=== PATIENT | female | born 1955 | race Caucasian/White ===

== ENCOUNTER 2021-10-20 12:52 | Emergency (ER) | payer OTHER, SELFPAY ==
[2021-10-20 13:01] VITALS: BP 115/86; PULSE 63; RESP 16; TEMP 36.4; O2SAT 96
--- NOTE | 2021-10-20 13:01 | ED.GENADULT ---
HPI - General Adult General Chief complaint: Unspecified Stated complaint: Right shoulder and knee Pain Time Seen by Provider: 10/20/21 13:05 Source: patient Mode of arrival: ambulatory Limitations: no limitations History of Present Illness HPI narrative: 66-year-old female presented for complaint of right shoulder and knee pain. States right shoulder pain started today. Endorses chronic bilateral knee pain, and has had cortisone injection in the right knee about 3 months ago. Denies injury. Denies decreased range of motion, numbness, tingling, weakness of extremities. She has been taking Tylenol and prescription oral morphine. She is scheduled to follow-up with her PCP next week. Related Data Home Medications Medication Instructions Recorded Confirmed alprazolam 0.5 mg tablet 1 tablet PO BID PRN Anxiety 10/20/21 10/20/21 doxazosin 4 mg tablet 1 tablet PO DAILY 10/20/21 10/20/21 hydrochlorothiazide 12.5 mg tablet 1 tablet PO DAILY 10/20/21 10/20/21 lisinopril 40 mg tablet 1 tablet PO DAILY 10/20/21 10/20/21 morphine 30 mg tablet,extended 1 tablet PO DAILY 10/20/21 10/20/21 release nebivolol 20 mg tablet 1 tablet PO DAILY 10/20/21 10/20/21 Allergies Allergy/AdvReac Type Severity Reaction Status Date / Time No Known Allergies Allergy Verified 10/20/21 12:57 Review of Systems Review of Systems: CONSTITUTIONAL: Denies body aches, fever, chills CARDIOVASCULAR: Denies chest pain, palpitations, or edema. RESPIRATORY: Denies cough or dyspnea. SKIN: Denies rash, itching, or wounds. MUSCULOSKELETAL: reports joint pain NEUROLOGIC: Denies headache, numbness, tingling, or weakness. All systems reviewed & are unremarkable except as noted in HPI and below PMFSH Social History Social History Smoking status: Former smoker Alcohol intake: never Comments At time of signature, I have reviewed and agree with nursing past medical, surgical, social and family history unless otherwise noted. Please see nursing chart for further information. There is no relevant family history pertinent to the presenting complaint Exam Narrative: GENERAL: Well-appearing EYES: conjunctivae clear CHEST: Speaks in full sentences. No respiratory distress. HEART: Regular rate and rhythm. Normal and equal peripheral pulses. EXTREMITIES: Right shoulder and leg have normal strength and sensation, slightly limited range of motion at shoulder and knee, endorses pain with movement. Moderate right knee swelling. No point tenderness. No open wounds; pulse palpable and equal bilaterally, skin warm, dry, pink. Capillary refill less than 3 seconds. Gait steady SKIN: Warm, dry, no rash. NEURO: Alert and oriented x3. PSYCH: Normal mood and affect Course Course Emergency Course: Patient is aware of diagnosis, understands and agrees to treatment plan. Anticipatory guidance given. Patient agrees to follow-up as directed and is aware of reasons to seek care at the emergency department. Portions of this record may have been created with voice recognition software Level of Care: Express Care Visit Vital Signs Vital signs: Vital Signs Temperature 97.5 F L 10/20/21 13:01 Pulse Rate 63 10/20/21 13:01 Respiratory Rate 16 10/20/21 13:01 Blood Pressure 115/86 10/20/21 13:01 Pulse Oximetry 96 10/20/21 13:01 Oxygen Delivery Room Air 10/20/21 13:01 Temperature 97.5 F L 10/20/21 13:01 Pulse Rate 63 10/20/21 13:01 Respiratory Rate 16 10/20/21 13:01 Blood Pressure 115/86 10/20/21 13:01 Pulse Oximetry 96 10/20/21 13:01 Oxygen Delivery Room Air 10/20/21 13:01 Reviewed Medical Decision Making MDM Narrative Medical decision making narrative: Pt declines imaging, she is scheduled with pcp next week, advised to contact them for possible plan for cortisone injection. Advised supportive measures for joint pain and signs/symptoms to go to the ER. Pt is appropri
== END 2021-10-20 13:25 | disposition home or self-care (01) ==
PROVIDERS: Emergency Provider Nurse Practitioner Family
DX: M25.511 Pain in right shoulder (principal); M25.561 Pain in right knee; M25.461 Effusion, right knee; Z87.891 Personal history of nicotine dependence; I10 Essential (primary) hypertension; M19.90 Unspecified osteoarthritis, unspecified site; F41.9 Anxiety disorder, unspecified
CPT/HCPCS: 99212; G0463

== ENCOUNTER 2022-07-13 16:36 | Observation (INO) | payer MEDICARE, OTHER, SELFPAY ==
[2022-07-13] VITALS (30 sets, daily range): BP systolic 126–187; BP diastolic 77–105; PULSE 52–68; RESP 14–25; TEMP 36.1–36.8; O2SAT 93–100; BMI 24.2
--- NOTE | ~2022-07-13 | XR_ITS ---
EXAMINATION: XR surgery orthopedic DATE: 07/15/2022 14:30 CDT INDICATION: ORIF RT WRIST . TECHNIQUE: 4 fluoroscopic images of the right wrist were obtained during ORIF right wrist performed b y the surgeon. I was not present in the operating room. Fluoroscopy exposure time was 10.4 seconds. A ir Kerma 0.2455 mGy. DAP 0.0049 mGym2. COMPARISON: 07/13/2022 FINDINGS: Hardware fixation of the distal right radial fracture into near-anatomic alignment. IMPRESSION: Fluoroscopic documentation of ORIF right wrist. Please refer to the operative note for complete proce dural details . Reviewed, dictated and finalized at location K. IMPRESSION: Fluoroscopic documentation of ORIF right wrist. Please refer to the operative n ote for complete procedural details .
--- NOTE | ~2022-07-13 | XR_ITS ---
EXAM: XR wrist RT min 3V DATE: 07/13/2022 20:55 HISTORY: post reduction . COMPARISON: None available. FINDINGS/IMPRESSION: Osseous detail obscured by overlying cast material. Improved alignment of the co mminuted distal right radial fracture status post reduction, with 4 mm lateral displacement and 12 de grees dorsal angulation. Increased distraction of the ulnar styloid fracture fragment. Reviewed, dictated and finalized at location K.
--- NOTE | ~2022-07-13 | CT_ITS ---
EXAMINATION: CT brain wo con DATE: 07/13/2022 18:17 INDICATION: fall . TECHNIQUE: Computed tomography (CT) of the head was performed without intravenous contrast. The mA wa s adjusted according to patient size. Iterative reconstruction technique was employed. The dose-lengt h product was 605.33 mGy-cm. COMPARISON: None. FINDINGS: No acute intracranial hemorrhage or extra-axial fluid collection. Moderate dilated lateral and third ventricles. No acute ischemic infarct. Unremarkable dural venous sinus attenuation. No acute osseous abnormality. Old right temporoparietal craniotomy defect. Multiple additional skull defects probably from old shunts. The aerated spaces are clear. 2.4 cm smoothly marginated likely extra-axial lesion in the posterior interhemispheric fissure, along the right side of the posterior falx. Soft tissue fluid and calcific densities are representing with in the lesion. No significant mass effect or adjacent cerebral edema. Dilated appearing cisterna magn a, possibly secondary to an arachnoid cyst. Left posterior frontal/parietal encephalomalacia along th e shunt tract. Left parietal approach [employer]NER shunt terminating in the left lateral ventricle. IMPRESSION: No acute intracranial hemorrhage or acute large vessel infarct. Moderate lateral and third ventricle ventriculomegaly of uncertain chronicity, but likely chronic in the absence of clinical findings of h ydrocephalus. Mixed density extra-axial lesion in the interhemispheric fissure posteriorly, uncertain etiology, likely chronic, recommend comparison with outside studies. Findings discussed with Sarwat Raymond PA-C at 6:36 PM on 07/13/2022 Reviewed, dictated and finalized at location K. IMPRESSION: No acute intracranial hemorrhage or acute large vessel infarct. 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 Mixed density extra-a xial lesion in the interhemispheric fissure posteriorly, uncertain etiology, li madhuri chronic, recommend comparison with outside studies. Findings discussed with Sarwat Raymond PA-C at 6:36 PM on 07/13/2022
--- NOTE | ~2022-07-13 | XR_ITS ---
EXAM: XR elbow RT 2V DATE: 07/13/2022 18:34 HISTORY: Fall today . COMPARISON: None available. FINDINGS: Normal mineralization. No fracture or dislocation. No lytic or blastic lesion. Mild degene rative change. No erosion or periosteal change. Soft tissues within normal limits. IMPRESSION: No acute osseous finding in the right elbow. Reviewed, dictated and finalized at location K.
--- NOTE | ~2022-07-13 | CT_ITS ---
EXAMINATION: CT facial bones wo con DATE: 07/13/2022 18:21 INDICATION: fall . TECHNIQUE: Computed tomography (CT) of the facial bones and maxillofacial region was performed withou t intravenous contrast. Automated exposure control and iterative reconstruction technique were employ ed. The dose-length product was 305.72 mGy-cm. COMPARISON: None. FINDINGS: Soft Tissues: Left frontal soft tissue swelling. Facial bones: No acute fracture. No lytic or blastic process. Eyes: The globes are intact. The soft tissue planes of the orbits are maintained. Paranasal Sinuses: The visualized aerated spaces are clear. Foreign Bodies: No radiopaque foreign bodies. Other Findings: Calcified shunt tubing in the left neck. IMPRESSION: No evidence of acute facial bone fracture. Reviewed, dictated and finalized at location K.
--- NOTE | ~2022-07-13 | XR_ITS ---
EXAM: XR shoulder RT min 2V DATE: 07/13/2022 18:34 HISTORY: Fall today . COMPARISON: None available. FINDINGS: Normal mineralization. No fracture or dislocation. No lytic or blastic lesion. Mild polyar ticular osteoarthritis in the right shoulder. No erosion or periosteal change. Soft tissues within no rmal limits. IMPRESSION: No acute osseous finding in the right shoulder. Reviewed, dictated and finalized at location K.
--- NOTE | ~2022-07-13 | XR_ITS ---
EXAM: XR wrist RT min 3V DATE: 07/13/2022 17:24 HISTORY: Right wrist pain/deformity after fall today . COMPARISON: None available. FINDINGS: Decreased mineralization. Comminuted, mildly impacted, intra-articular fracture of the dis priscila right radius, with 30 degrees dorsal angulation. Displaced ulnar styloid fracture. No lytic or bl astic lesion. Severe degenerative change at the trapeziometacarpal joint. No erosion or periosteal ch tres. Soft tissue swelling over the wrist. IMPRESSION: Comminuted, mildly impacted, intra-articular fracture of the distal right radius, with 30 degrees dorsal angulation. Displaced ulnar styloid fracture. Reviewed, dictated and finalized at location K. IMPRESSION: Comminuted, mildly impacted, intra-articular fracture of the distal right radius, with 30 degrees dorsal angulation. Displaced ulnar styloid fract ure.
[2022-07-13] MEDS: ONDANSETRON INJ 4 MG/2 ML VIAL IV PUSH (17:55)
[2022-07-13] MEDS: fentaNYL CITRATE INJ (*CRX) 100 MCG/2 ML VIAL 50 MCG IV PUSH ×2 (17:56→20:59)
--- NOTE | 2022-07-13 17:58 | ED.FALL ---
HPI - Fall General Chief Complaint: Fall <Sarwat Raymond PA-C - Last Filed: 07/13/22 23:17> Stated Complaint: fall/ deformity of rt wrist <Sarwat Raymond PA-C - Last Filed: 07/13/22 23:17> Time Seen by Provider: 07/13/22 17:33 <Sarwat Raymond PA-C - Last Filed: 07/13/22 23:17> Source: patient <JAKE Caldwell Last Filed: 07/13/22 23:17> Mode of arrival: ambulatory <JAKE Caldwell Last Filed: 07/13/22 23:17> Limitations: no limitations <JAKE Caldwell Last Filed: 07/13/22 23:17> History of Present Illness HPI Narrative: This is a 67-year-old female who presents to the ED via EMS with chief complaint of a fall occurring this afternoon just prior to arrival. Patient was outside with her grandchildren and was sitting in her chair when she tried to get up. States that she tripped over a TV box and forward landing on her outstretched right arm and face. She now reports deformity and pain to the right wrist. Also reports right shoulder pain and facial pain. Denies numbness, weakness, LOC. Denies chest pain, shortness of breath, abdominal pain. Denies any further site of pain or injury. States she is not taking blood thinners. <Sarwat Raymond PA-C - Last Filed: 07/13/22 23:17> Related Data Home Medications: Home Medications Medication Instructions Recorded Confirmed alprazolam 0.5 mg tablet 1 tablet PO BID PRN Anxiety 10/20/21 10/20/21 doxazosin 4 mg tablet 1 tablet PO DAILY 10/20/21 10/20/21 hydrochlorothiazide 12.5 mg tablet 1 tablet PO DAILY 10/20/21 10/20/21 lisinopril 40 mg tablet 1 tablet PO DAILY 10/20/21 10/20/21 morphine 30 mg tablet,extended 1 tablet PO DAILY 10/20/21 10/20/21 release nebivolol 20 mg tablet 1 tablet PO DAILY 10/20/21 10/20/21 <Sarwat Raymond PA-C - Last Filed: 07/13/22 23:17> Allergies/Adverse Reactions: Allergies Allergy/AdvReac Type Severity Reaction Status Date / Time No Known Allergies Allergy Verified 07/13/22 16:44 <Sarwat Raymond PA-C - Last Filed: 07/13/22 23:17> Review of Systems Review of Systems: CONSTITUTIONAL: Denies fever, chills, or sweats. EYES: Denies visual changes, redness, or discharge. ENT: Endorses facial pain. Denies rhinorrhea, congestion, sore throat, or otalgia. CARDIOVASCULAR: Denies chest pain, palpitations, or edema. RESPIRATORY: Denies cough or dyspnea. GASTROINTESTINAL: Denies abdominal pain, nausea, vomiting, or diarrhea. GENITOURINARY: Denies dysuria or hematuria. SKIN: Denies rash or itching. MUSCULOSKELETAL: Endorses right shoulder pain, right wrist pain. Denies back pain, neck pain, other joint pain, or myalgia. NEUROLOGIC: Denies headache, numbness, dizziness, or weakness. PSYCHIATRIC: Denies anxiety or depression. <Sarwat Raymond PA-C - Last Filed: 07/13/22 23:17> PMFSH Social History Social History: Social History Smoking status: Former smoker Alcohol intake: never <Sarwat Raymond PA-C - Last Filed: 07/13/22 23:17> Exam Narrative: GENERAL: Well-appearing, well-nourished, and in no acute distress. HEAD: Normocephalic, atraumatic. EYES: PERRLA and EOMI. ENT: Nares clear, no rhinorrhea or epistaxis. Mucous membranes moist. Oropharynx without tonsillar hypertrophy exudate or other lesions. NECK: Supple. No adenopathy or masses. CHEST: No respiratory distress. Clear to auscultation. No wheezes rales or rhonchi HEART: Regular rate and rhythm. No murmur heard. Normal peripheral pulses. ABDOMEN: Soft, nontender, nondistended, normal active bowel sounds. EXTREMITIES: RUE: Right wrist deformity present. Right wrist bruising present. Marked tenderness of the right wrist. Mild tenderness of the right elbow and mild tenderness of the right shoulder. No further deformity or bruising. Range of motion intact in the elbow and shoulder, severely reduced in the wrist. Neurovascularly intact distally. LUE: Benign.
[2022-07-13] MEDS: ETOMIDATE 20 MG/10 ML AMPUL 10 MG IV PUSH (20:22)
[2022-07-13] MEDS: HYDROmorphone HCL INJ (*CRX) 1 MG/ML SYR 0.5 MG IV PUSH (21:46)
--- NOTE | 2022-07-13 21:49 | PC.NURSE ---
provider aware of patient bp, patient took home medication at bedside
--- NOTE | 2022-07-13 22:21 | PM.IMHP ---
H&P: HPI History of Present Illness Date/Time: 07/13/22 22:21 Chief Complaint: Fall Narrative: This is a 67-year-old female with past medical history significant for hypertension, meningioma status post gamma knife treatment, chronic headache. Patient comes to the emergency room after she has sustained a mechanical fall ground level, no loss of consciousness, patient has been in her usual state of health states that she is clumsy denies any trauma to the head, no fevers, no rigors, no chills, no lightheadedness no syncope no near-syncope no vertigo. In emergency room patient was found to have fracture of the wrist. Patient has been admitted for further evaluation management and treatment. X-ray of the hand: FINDINGS:? Decreased mineralization. Comminuted, mildly impacted, intra-articular fracture of the distal right radius, with 30 degrees dorsal angulation. Displaced ulnar styloid fracture. No lytic or blastic lesion. Severe degenerative change at the trapeziometacarpal joint. No erosion or periosteal change. Soft tissue swelling over the wrist. IMPRESSION: Comminuted, mildly impacted, intra-articular fracture of the distal right radius, with 30 degrees dorsal angulation. Displaced ulnar styloid fracture. CT of the head was reported as: FINDINGS: No acute intracranial hemorrhage or extra-axial fluid collection. Moderate dilated lateral and third ventricles. No acute ischemic infarct. Unremarkable dural venous sinus attenuation. No acute osseous abnormality. Old right temporoparietal craniotomy defect. Multiple additional skull defects probably from old shunts. The? aerated spaces are clear. 2.4 cm smoothly marginated likely extra-axial lesion in the posterior interhemispheric fissure, along the right side of the posterior falx. Soft tissue fluid and calcific densities are representing within the lesion. No significant mass effect or adjacent cerebral edema. Dilated appearing cisterna magna, possibly secondary to an arachnoid cyst. Left posterior frontal/parietal encephalomalacia along the shunt tract. Left parietal approach KAYAK [employer]KER shunt terminating in the left lateral ventricle. IMPRESSION:? No acute intracranial hemorrhage or acute large vessel infarct. Moderate lateral and third ventricle ventriculomegaly of uncertain chronicity, but likely chronic in the absence of clinical findings of hydrocephalus. Mixed density extra-axial lesion in the interhemispheric fissure posteriorly, uncertain etiology, likely chronic, recommend comparison with outside studies. Review of Systems Review of Systems: Fall, right wrist fracture Constitutional: Constitutional: Denies chills, Denies fatigue, Denies fever(s), Denies lethargy, Denies malaise, Denies night sweats, Denies poor appetite and Denies weakness Eyes: Eyes: Denies change in vision ENT: Denies dysphagia and Denies odynophagia Cardiovascular: Cardiovascular: Denies chest pain and Denies lightheadedness Respiratory: Respiratory: Denies chest congestion, Denies cough and Denies dyspnea Gastrointestinal: Gastrointestinal: Denies abdominal pain, Denies dyspepsia, Denies heartburn, Denies diarrhea, Denies nausea and Denies vomiting Genitourinary: Genitourinary: Denies dysuria Musculoskeletal: Musculoskeletal: Reports arthralgias (Right wrist) and Reports limited range of motion (Right wrist) Integumentary/Breasts: Skin/Breast: Denies rash Neurologic: Denies focal weakness and Denies Sensory deficit (Neuro) Psychiatric: Psychiatric: Reports no additional psychiatric complaints and Reports as per HPI Endocrine: Endocrine: Denies cold intolerance, Denies flushing, Denies heat intolerance, Denies polyphagia, Denies polydipsia and Denies palpitations Hematologic/Lymphatic: Hematologic/Lymphatic: Reports no additional hematologic/lymphatic complaints and Reports as per HPI Allergic/Immunologic: Allergic/Immunologic: Reports no additional allergic/immunologic complaints and Reports as per HPI
--- NOTE | 2022-07-13 22:53 | PC.NURSE ---
volar splint placed by provider during moderate sedation procedure
--- NOTE | 2022-07-13 22:59 | PC.NURSE ---
report called to cheryle guzman
[2022-07-13 23:21] LABS: Basophils Absolute Auto 0.1 K/mm3 (0.0-0.1); Basophils Percent Auto 0.6 % (0.2-1.2); Eosinophils Absolute Auto 0.1 K/mm3 (0-0.3); Eosinophils Percent Auto 1.7 % (0-4.4); Hemoglobin 10.5 g/dL (12.0-15.0); Immature Granulocyte Absolute 0.03 K/mm3 (0.00-0.031); Immature Granulocyte Percent A 0.4 % (0-0.5); Lymphocytes Absolute Auto 1.84 K/mm3 (0.9-3.2); Lymphocytes Percent Auto 22.1 % (18.3-44.2); Mean Corpuscular HGB Conc 30.9 g/dl (32-36); Mean Corpuscular Hemoglobin 28.8 pg (26-34); Mean Corpuscular Volume 93.4 fl (80-100); Mean Platelet Volume 8.9 fl (7.4-10.4); Monocytes Absolute Auto 0.7 K/mm3 (0.1-0.6); Neutrophils Absolute Auto 5.6 K/mm3 (1.3-6.7); Neutrophils Percent Auto 67.2 % (45.5-73.1); Platelet Count Result 216 k/mm3 (150-375); Red Blood Count 3.64 M/mm3 (4.2-5.4); Red Cell Distribution Width 13.6 % (11.5-14.5); White Blood Count 8.3 K/mm3 (4.5-10.0)
[2022-07-13 23:31] LABS: INR 1.1; Prothrombin Time 13.7 Seconds (11.1-14.7)
[2022-07-13 23:32] LABS: Alanine Aminotransferase 16 U/L (6-35); Albumin Level 3.4 g/dL (3.5-5.1); Alkaline Phosphatase 72 U/L (38-126); Anion Gap 0 mmol/L (8-16); Aspartate Amino Transferase 23 U/L (14-36); Bilirubin,Total 0.5 mg/dL (0.2-1.3); Blood Urea Nitrogen 19 mg/dL (7-17); Calcium 8.5 mg/dL (8.4-10.2); Carbon Dioxide 30 mmol/L (22-30); Chloride 104 mmol/L (98-107); Estimated CRCL calculation 67 ml/min; Estimated Glomerular Filt Rate > 60; Glucose 98 mg/dL (65-110); Sodium 134 mmol/L (137-145)
--- NOTE | 2022-07-13 23:34 | ADMGEN ---
This patient, Fara Valencia, was admitted to [facility] Surg Room 330-02. Patient/family oriented to hospital policies and general routines including ID bracelet, bed and alarms, visiting hours, pain management, procedures, bathroom and other care routines, personal items, smoking policy, room service/diet, and visiting hours. Information on how to activate the Rapid Response Team has been discussed. Patient/Family are encouraged to report perceived risks to care and to ask questions if they do not understand what they are told or what they should do.
[2022-07-13] MEDS: MORPHINE SULFATE (*CRX) 4 MG/ML INJ IV PUSH (23:52)
[2022-07-14] MEDS: DEXTROSE 5%/0.45% SOD CHL 1,000 ML 75 ML IV CONT (01:37)
[2022-07-14] MEDS: MORPHINE SULFATE (*CRX) 4 MG/ML INJ IV PUSH ×5 (02:07→16:14)
[2022-07-14 05:45] VITALS: BP 120/78; PULSE 55; RESP 16; TEMP 36.6; O2SAT 91
--- NOTE | 2022-07-14 07:25 | PCOTNOTE ---
Will complete OT evaluation following ortho consult and recommendations.
[2022-07-14] MEDS: HYDROcodone/acetaminophen (*CRX) 5-325 MG TABLET 1 TAB PO (08:29)
--- NOTE | 2022-07-14 08:59 | PCPTNOTE ---
Will complete PT evaluation following ortho consult and recommendations.
--- NOTE | 2022-07-14 11:24 | PM.IMPN ---
Progress Note: A&P Assessment and Plan (1) Closed fracture distal radius and ulna: Code(s): S52.509A - Unspecified fracture of the lower end of unspecified radius, initial encounter for closed fracture; S52.609A - Unspecified fracture of lower end of unspecified ulna, initial encounter for closed fracture Status: Acute Assessment and Plan: Admit to regular medical floor Pain management Ortho consult -per patient, plans to go to the OR today. Await further recommendations by Ortho (2) Fall: Code(s): W19.XXXA - Unspecified fall, initial encounter Status: Acute Assessment and Plan: For precautions PT OT consult (3) Hypertension: Code(s): I10 - Essential (primary) hypertension Status: Acute Assessment and Plan: Continue home meds Continue to monitor (4) Rheumatoid arthritis: Code(s): M06.9 - Rheumatoid arthritis, unspecified Status: Acute Assessment and Plan: Tylenol p.r.n. Not on DMARDs Subjective Date/time seen: 07/14/22 11:24 Pain controlled. Per patient planus go to the OR today. Exam Narrative: Patient is laying in a stretcher Const: General: cooperative, comfortable, no acute distress, well developed, alert, awake, ill appearing chronically and average body habitus Nutritional Appearance: average body habitus Orientation/consciousness: patient oriented x3 HENMT: Head: normal to inspection, normocephalic and atraumatic Ears: hearing grossly normal bilaterally Face/Nose/Sinus: normal facial exam Face and sinus: normal facial exam Eyes: General: appearance normal, both eyes and all related structures Pupils: Equal, round and reactive pupils present EOM: EOMs intact bilaterally Neck: Neck: full ROM, no lymphadenopathy and no JVD Thyroid: thyroid normal Lymphatic: no lymphadenopathy noted Resp: Effort & Inspection: normal respiratory effort and able to speak in complete sentences Auscultation: clear to auscultation bilaterally Cardio: Jugular venous distension: no JVD Rate: regular rate Rhythm: regular rhythm Heart sounds: S1 normal heart sound present and S2 normal heart sound present : General: Yes deferred Skin: Rashes: no rashes Wounds: no wounds Neuro: General: patient oriented x3, CN's II-XI intact bilaterally and Unable to assess gait Cranial nerves: Yes CN's II-XII intact bilaterally and Yes Equal, round and reactive pupils present Cognition (Neuro): normal cognition Speech: normal speech Gait exam (Neuro): Unable to assess gait Motor exam (neuro): 5/5 motor strength present throughout Sensory Exam: No Sensory deficit (Neuro) Extrem: General: normal to inspection, full ROM, no joint enlargement and no pedal edema Right upper extremity: wrist tenderness, abnormal ROM and other (Brace in place) Objective Data Vital Signs Vital Signs: Vital Signs - 24 hr 07/13/22 16:34 07/13/22 20:12 07/13/22 20:22 Temperature 98.3 F 97.0 F L 97.0 F L Pulse Rate 62 Respiratory Rate 14 16 14 Blood Pressure 168/90 H Pulse Oximetry 98 98 96 Oxygen Delivery Room Air Room Air Room Air 07/13/22 20:40 07/13/22 16:47 07/13/22 18:07 Temperature Pulse Rate 54 L 52 L Respiratory Rate 18 17 Blood Pressure Pulse Oximetry 97 95 Oxygen Delivery Room Air 07/13/22 18:32 07/13/22 18:45 07/13/22 19:50 Temperature Pulse Rate 54 L 61 63 Respiratory Rate 14 20 20 Blood Pressure Pulse Oximetry 100 97 Oxygen Delivery 07/13/22 20:00 07/13/22 20:15 07/13/22 20:17 Temperature Pulse Rate 61 58 L 59 L Respiratory Rate 14 21 H 17 Blood Pressure 173/105 H Pulse Oximetry 98 98 97 Oxygen Delivery 07/13/22 20:30 07/13/22 20:31 07/13/22 20:44 Temperature Pulse Rate 58 L 61 61 Respiratory Rate 19 25 H 18 Blood Pressure 167/103 H Pulse Oximetry 97 98 95 Oxygen Delivery 07/13/22 20:45 07/13/22 20:46 07/13/22 21:08 Temperature Pulse Rate 62 68 58 L Respiratory Rate 16 19 Bloo
[2022-07-14] MEDS: ENOXAPARIN 40 MG/0.4 ML SYRINGE SUB-Q (12:29)
[2022-07-14 14:05] VITALS: BP 122/89; PULSE 81; RESP 18; TEMP 36.3; O2SAT 97
--- NOTE | 2022-07-14 16:41 | PM.CNOR ---
Assessment and Plan Assessment and plan (1) Closed fracture distal radius and ulna: Qualifiers: Encounter type: initial encounter Laterality: right Qualified Code(s): S52.501A - Unspecified fracture of the lower end of right radius, initial encounter for closed fracture; S52.601A - Unspecified fracture of lower end of right ulna, initial encounter for closed fracture Code(s): S52.509A - Unspecified fracture of the lower end of unspecified radius, initial encounter for closed fracture; S52.609A - Unspecified fracture of lower end of unspecified ulna, initial encounter for closed fracture Status: Acute Assessment and Plan: Right distal radius fracture from fall while at home yesterday. Significant pain while in the emergency room. Subsequently admitted as well as for medical stabilization. Pain moderately improved with morphine and hydrocodone. Significant comminution and displacement noted on radiographs. Discussed nonoperative and operative treatment options with the patient. Risks and benefits of each as well as alternatives were reviewed. All of the patient's questions were answered. The risks of surgery reviewed including but not limited to: Neurovascular damage, wound complication, infection, blood clot, pulmonary embolus, stroke, myocardial infarction, and anesthetic risks up to and including . Continued pain and possible dysfunction were explained. Specific risks of the procedure including later recurrence of deformity. No guarantees were offered. If hardware used, discussed risk of failure/ breakage and possible need for removal. If complications occur, the patient understands the need for further treatment, possible further surgery. Patient verbalizes understanding and wishes to proceed. PLAN: Open reduction internal fixation right distal radius fracture. (2) Fall: Qualifiers: Encounter type: initial encounter Qualified Code(s): W19.XXXA - Unspecified fall, initial encounter Code(s): W19.XXXA - Unspecified fall, initial encounter Status: Acute History of Present Illness HPI Consult date: 07/14/22 Requesting physician: Woodrow Castellanos DO Chief complaint: Distal Radius Fracture,Pain Control, HTN Narrative: 67-year-old woman lost her balance and fell at home onto right outstretched hand. Presented to the emergency room. Found to have distal radius fracture. Was reduced and splinted in the emergency room by staff. Admitted for further care and for medical instability. Complains of right wrist pain. Denies numbness or tingling. Has had previous left wrist fracture. Denies prior problems with the wrist. Review of Systems Constitutional: Constitutional: Denies fever(s) Eyes: Eyes: Denies blurry vision ENT: Reports Normal hearing present Cardiovascular: Cardiovascular: Denies chest pain and Denies dyspnea Respiratory: Respiratory: Denies dyspnea and Denies wheezing Gastrointestinal: Gastrointestinal: Denies abdominal pain Genitourinary: Genitourinary: Denies urinary urgency Musculoskeletal: Musculoskeletal: Reports as per HPI and Denies numbness Integumentary/Breasts: Skin/Breast: Denies changing lesions and Denies sores Neurologic: Reports Normal hearing present, Denies behavioral changes, Denies confusion, Denies numbness and Denies convulsions Psychiatric: Psychiatric: Denies behavioral changes, Denies confusion and Denies hallucinations Endocrine: Endocrine: Denies heat intolerance Hematologic/Lymphatic: Hematologic/Lymphatic: Denies easy bleeding Allergic/Immunologic: Allergic/Immunologic: Denies wheezing [facility] Social History Social History Smoking status: Former smoker Alcohol intake: never Substance use: never Lack of Transportation: No Lack of Food: Never True Current Housing: I Have Housing Concerned About Future Housing: No Difficulty Paying Gas/Electric [place]
[2022-07-14 20:00] VITALS: PULSE 57; RESP 14; O2SAT 95
[2022-07-14] MEDS: ALPRAZolam (*CRX) 0.5 MG TABLET PO ×2 (20:38→21:16)
[2022-07-14] MEDS: MORPHINE SULFATE (*CRX) 30 MG TABCR PO (20:38)
[2022-07-14] MEDS: ONDANSETRON INJ 4 MG/2 ML VIAL IV PUSH (20:40)
[2022-07-14 21:37] VITALS: BP 166/84; PULSE 57; RESP 14; TEMP 36.3; O2SAT 95
[2022-07-15] VITALS (13 sets, daily range): BP systolic 104–166; BP diastolic 71–109; PULSE 53–82; RESP 12–18; TEMP 35.6–37.2; O2SAT 92–100
[2022-07-15] MEDS: DEXTROSE 5%/0.45% SOD CHL 1,000 ML 75 ML IV CONT (07:45)
[2022-07-15] MEDS: NEBIVOLOL HCL 5 MG TABLET 20 MG PO (10:05)
[2022-07-15] MEDS: MORPHINE SULFATE (*CRX) 30 MG TABCR PO ×2 (10:05→20:39)
--- NOTE | 2022-07-15 10:30 | PC.NURSE ---
Assisted patient with removing rings x 2 for surgery. 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 Offered to lock up for patient but she stated she would rather put them in her purse. Patient put the rings in the outside zipper of her purse at bedside.
--- NOTE | 2022-07-15 11:07 | PCOTNOTE ---
Per chart, pt. getting surgery. Will be seen when appropriate after surgery.
[2022-07-15] MEDS: LACTATED RINGERS 1,000 ML 30 ML IV CONT ×2 (12:35→15:28)
[2022-07-15] MEDS: KETOROLAC 15 MG/ML VIAL (*BKC) IV PUSH (12:45)
[2022-07-15] MEDS: ACETAMINOPHEN 500 MG TABLET 1000 MG PO (12:45)
--- NOTE | 2022-07-15 13:28 | WPDANESEPPF ---
Anes - Initial Pre Proc Eval Procedure: Operation Date: 07/15/22 13:30 Proposed Procedures p Open Reduction Internal Fixation Right Wrist - Jaswinder Cisneros MD Date/Time: 07/15/22 13:28 Surgeon: Janice Meek MD Pre Op Diagnosis: Distal Radius Fracture,Pain Control, HTN Patient Data Age: 67 Gender: F Height: 1.68 m Weight: 68.1 kg Last Vital Signs Temp 37.2 C 07/15/22 13:20 Pulse 54 L 07/15/22 13:20 Resp 16 07/15/22 13:20 BP 139/89 07/15/22 13:20 Pulse Ox 96 07/15/22 13:20 O2 Del Method Room Air 07/15/22 13:20 Allergies Allergy/AdvReac Type Severity Reaction Status Date / Time No Known Allergies Allergy Verified 07/14/22 01:15 Home Medications Medication Instructions Recorded Confirmed Type alprazolam 0.5 mg tablet 1 tablet PO BID PRN Anxiety 10/20/21 07/14/22 History nebivolol 20 mg tablet 1 tablet PO DAILY 10/20/21 07/14/22 History doxazosin 4 mg tablet 8 mg PO DAILY 07/14/22 07/14/22 History lisinopril 20 mg tablet 20 mg PO Q48H 07/14/22 07/14/22 History morphine 30 mg tablet,extended 30 mg PO Q12H 07/14/22 07/14/22 History release Patient hx anesthesia problems: none Family hx anesthesia problems: none Results Review: All pre-operative results and documents have been reviewed as part of the pre-operative evaluation. [facility] Past Medical History Medical History (Updated 07/15/22 @ 13:29 by Pankaj Reid DO) Anxiety Chronic pain Hypertension Rheumatoid arthritis Social History Social History Smoking status: Former smoker Alcohol intake: never Substance use: never Lack of Transportation: No Lack of Food: Never True Current Housing: I Have Housing Concerned About Future Housing: No Difficulty Paying Gas/Electric Bills: No Difficulty Paying for Meds: No Currently Unemployed: No Education: Associate Degree Difficulty w/ Childcare or Family Care: No Spiritual care concerns: No Anes - Eval Final PreProcedure Day of Procedure 07/15/22 13:28 Patient weight: normal Heart: regular rate and rhythm Lungs: clear to auscultation and normal air movement Airway: Mallampati scale class II Neurological: alert and oriented Last oral intake: >/= 8 hours ASA classification: III Emergent: no Anesthetic plan: proceed Anesthesia type and monitoring: general LMA and standard monitoring Results Review: All pre-operative results and documents have been reviewed as part of the pre-operative evaluation. Informed Consent: The patient's anesthetic plan and its attendant risks and benefits were discussed with the patient/family/POA. Questions were solicited and answers provided to the satisfaction of the patient/family/POA.
--- NOTE | 2022-07-15 13:42 | WPDHPUPDATE1 ---
History and Physical Update Update Date/Time: 07/15/22 13:42 History and Physical has been reviewed, including an updated exam of the patient. There are NO changes in the patient's condition. Risks, benefits, and alternatives have been discussed and questions answered. Patient agrees to proceed with procedure.
[2022-07-15] MEDS: SCOPOLAMINE 1.5 MG PATCH TRANSDERM (13:45)
[2022-07-15] MEDS: ceFAZolin 2 GM/D5W 50 ML 2 GM/50 ML BAG IVPB (14:04)
[2022-07-15] MEDS: BUPivacaine HCL 0.25% PF 10 ML VIAL INFILTRATE (14:44)
--- NOTE | 2022-07-15 15:34 | PM.IMPN ---
Progress Note: A&P Assessment and Plan (1) Closed fracture distal radius and ulna: Qualifiers: Encounter type: initial encounter Laterality: right Qualified Code(s): S52.501A - Unspecified fracture of the lower end of right radius, initial encounter for closed fracture; S52.601A - Unspecified fracture of lower end of right ulna, initial encounter for closed fracture Code(s): S52.509A - Unspecified fracture of the lower end of unspecified radius, initial encounter for closed fracture; S52.609A - Unspecified fracture of lower end of unspecified ulna, initial encounter for closed fracture Status: Acute Assessment and Plan: Admit to regular medical floor Pain management Ortho consult -per patient, plans to go to the OR today. Await further recommendations by Ortho (2) Fall: Qualifiers: Encounter type: initial encounter Qualified Code(s): W19.XXXA - Unspecified fall, initial encounter Code(s): W19.XXXA - Unspecified fall, initial encounter Status: Acute Assessment and Plan: For precautions PT OT consult (3) Hypertension: Code(s): I10 - Essential (primary) hypertension Status: Acute Assessment and Plan: Continue home meds Continue to monitor (4) Rheumatoid arthritis: Code(s): M06.9 - Rheumatoid arthritis, unspecified Status: Acute Assessment and Plan: Tylenol p.r.n. Not on DMARDs Subjective Date/time seen: 07/15/22 15:34 67-year-old female with past medical history significant for hypertension, meningioma status post gamma knife treatment, chronic headache.? Patient comes to the emergency room after she has sustained a mechanical fall? ground level, no loss of consciousness. Pt sustained distal radius and ulna fracture going to OR today Review of Systems Review of Systems: Discomfort in arm Constitutional: Constitutional: Denies chills, Denies fatigue, Denies fever(s), Denies lethargy, Denies malaise, Denies night sweats, Denies poor appetite and Denies weakness Eyes: Eyes: Denies change in vision ENT: Denies dysphagia and Denies odynophagia Cardiovascular: Cardiovascular: Denies chest pain, Denies lightheadedness, Denies palpitations and Denies dyspnea Respiratory: Respiratory: Denies chest congestion, Denies cough and Denies dyspnea Gastrointestinal: Gastrointestinal: Denies abdominal pain, Denies dysphagia, Denies dyspepsia, Denies heartburn, Denies diarrhea, Denies nausea, Denies odynophagia and Denies vomiting Genitourinary: Genitourinary: Denies dysuria Musculoskeletal: Musculoskeletal: Reports arthralgias (Right wrist) and Reports limited range of motion (Right wrist) Integumentary/Breasts: Skin/Breast: Denies rash Neurologic: Denies focal weakness, Denies Sensory deficit (Neuro) and Denies weakness Psychiatric: Psychiatric: Reports no additional psychiatric complaints and Reports as per HPI Endocrine: Endocrine: Denies cold intolerance, Denies fatigue, Denies flushing, Denies heat intolerance, Denies polyphagia, Denies polydipsia and Denies palpitations Hematologic/Lymphatic: Hematologic/Lymphatic: Reports no additional hematologic/lymphatic complaints and Reports as per HPI Allergic/Immunologic: Allergic/Immunologic: Reports no additional allergic/immunologic complaints and Reports as per HPI Objective Data Vital Signs Vital Signs: Vital Signs - 24 hr 07/14/22 21:37 07/14/22 20:00 07/15/22 04:57 Temperature 36.3 C L 36.1 C L Pulse Rate 57 L 57 L 56 L Respiratory Rate 14 14 16 Blood Pressure 166/84 H 144/89 H Pulse Oximetry 95 95 94 Oxygen Delivery Room Air 07/15/22 10:05 07/15/22 13:20 07/15/22 10:24 Temperature 37.2 C Pulse Rate 64 54 L Respiratory Rate 16 Blood Pressure 139/89 Pulse Oximetry 96 Oxygen Delivery Room Air Room Air Intake/Output Intake/Output: Intake & Output 07/12/22 07/13/22 07/14/22 07/15/22 23:59 23:59 23:59 23:59 Intake Total 1830 10
--- NOTE | 2022-07-15 15:35 | W.PM.PROC2 ---
Procedure Note - Detailed Date of Procedure 07/15/22 Pre-op Diagnosis Distal Radius Fracture,Pain Control, HTN Post-op Diagnosis Same Procedure Performed Open reduction internal fixation right distal radius fracture with fixation of 4 fragments. 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 Right distal radius comminuted fracture with displacement. Desires operative treatment. Description of Procedure After informed consent the operative extremity was marked in the preoperative holding area. Patient received intravenous antibiotics. Patient taken to the operating room where they underwent general anesthesia. Positioned supine on operating table. Time-out performed confirming the patient, patient's site of surgery and the plan. Right upper extremity prepped and draped in the usual sterile surgical fashion using a ChloraPrep skin solution. Hand and wrist exsanguinated and arm tourniquet inflated to 225 mmHg. Dorsal longitudinal incision made centered over Ike's tubercle with a 15 blade knife. Dorsal retinaculum incised in line with skin incision. Careful dissection to identify the extensor pollicis tendon which was retracted. Dorsal periosteum elevated off of the distal radius. Ike's tubercle removed with rongeur. Fracture reduced manually and with use of elevator. Fracture used as entry point for the starter awl for the distal radius. Intramedullary canal reamed with the awl. Intramedullary dorsal nail then placed retrograde and seated into position. Fluoroscopy used to confirm reduction of the fracture placement of the hardware. Comminuted distal fracture then fixed with multiple locking 2 mm smooth pegs. Four of these placed and verified for position using fluoroscopy. Care to make sure no penetration of articular surface. Unicortical proximal locking screws used to secure the nail to the radius. Final reduction of the fracture, alignment of the wrist joint and placement of the hardware verified with image intensification. Wound thoroughly irrigated with antibiotic solution. Periosteum closed over the nail to protect the extensor pollicis tendon. Skin closed with interrupted subcutaneous 000 Monocryl interrupted suture and running 000 Monocryl subcuticular stitch. Skin approximated with 4-0 nylon running suture. Local anesthetic with 0.5% Marcaine. Sterile dressing applied. Patient awoke from anesthesia, extubated and taken to the recovery room in stable condition. All sponge and instrument counts correct at the end of case. Implants [employer] intramedullary nail with screw fixation Estimated Blood Loss 5 Tourniquet Time 35 Drains No Packing No Pathology None sent Complications None Condition Stable Disposition PACU [facility] Billing Surgery - Charge Forward: Surgery Billing ([id number])
[2022-07-15] MEDS: SENNA/DOCUSATE SODIUM TABLET 2 TAB PO (18:49)
--- NOTE | 2022-07-15 18:57 | PC.NURSE ---
Patient is tolerating liquids and requests solid foods. Per Dr. He, patient can advance diet as tolerated. Request sent to d/c IV continuous fluids.
[2022-07-15] MEDS: ceFAZolin 1 GM/NS 50 ML 1 GM/50 ML BAG IVPB (20:39)
[2022-07-15] MEDS: HYDROcodone/acetaminophen (*CRX) 5-325 MG TABLET 1 TAB PO (23:49)
[2022-07-16 02:17] VITALS: BP 155/78; PULSE 52; RESP 16; TEMP 36.4; O2SAT 96
[2022-07-16 06:17] VITALS: BP 138/79; PULSE 51; RESP 16; TEMP 36.4; O2SAT 96
[2022-07-16] MEDS: ceFAZolin 1 GM/NS 50 ML 1 GM/50 ML BAG IVPB ×2 (06:29→12:20)
[2022-07-16] MEDS: HYDROcodone/acetaminophen (*CRX) 5-325 MG TABLET 1 TAB PO ×3 (06:29→16:22)
[2022-07-16 08:31] VITALS: PULSE 63
[2022-07-16] MEDS: lisinopriL 20 MG TABLET PO (08:31)
[2022-07-16] MEDS: NEBIVOLOL HCL 5 MG TABLET 20 MG PO (08:31)
[2022-07-16] MEDS: polyethylene glycoL 3350 17 GM POWD.PACK PO (08:31)
[2022-07-16] MEDS: MORPHINE SULFATE (*CRX) 30 MG TABCR PO (08:31)
[2022-07-16] MEDS: DOXAZOSIN MESYLATE 4 MG TABLET 8 MG PO (08:33)
[2022-07-16] MEDS: SENNA/DOCUSATE SODIUM TABLET 2 TAB PO ×2 (08:33→16:23)
[2022-07-16] MEDS: ALPRAZolam (*CRX) 0.5 MG TABLET PO ×2 (08:33→16:22)
--- NOTE | 2022-07-16 11:58 | PM.IMPN ---
Progress Note: A&P Assessment and Plan (1) Closed fracture distal radius and ulna: Qualifiers: Encounter type: initial encounter Laterality: right Qualified Code(s): S52.501A - Unspecified fracture of the lower end of right radius, initial encounter for closed fracture; S52.601A - Unspecified fracture of lower end of right ulna, initial encounter for closed fracture Code(s): S52.509A - Unspecified fracture of the lower end of unspecified radius, initial encounter for closed fracture; S52.609A - Unspecified fracture of lower end of unspecified ulna, initial encounter for closed fracture Status: Acute Assessment and Plan: Status post orthopedic surgery. Further plan per surgery (2) Fall: Qualifiers: Encounter type: initial encounter Qualified Code(s): W19.XXXA - Unspecified fall, initial encounter Code(s): W19.XXXA - Unspecified fall, initial encounter Status: Acute Assessment and Plan: PT OT consult (3) Hypertension: Code(s): I10 - Essential (primary) hypertension Status: Acute Assessment and Plan: Continue home meds Continue to monitor (4) Rheumatoid arthritis: Code(s): M06.9 - Rheumatoid arthritis, unspecified Status: Acute Assessment and Plan: Tylenol p.r.n. Not on DMARDs Subjective Date/time seen: 07/16/22 11:58 No overnight issues Review of Systems Review of Systems: Discomfort in arm Constitutional: Constitutional: Denies chills, Denies fatigue, Denies fever(s), Denies lethargy, Denies malaise, Denies night sweats, Denies poor appetite and Denies weakness Eyes: Eyes: Denies change in vision ENT: Denies dysphagia and Denies odynophagia Cardiovascular: Cardiovascular: Denies chest pain, Denies lightheadedness, Denies palpitations and Denies dyspnea Respiratory: Respiratory: Denies chest congestion, Denies cough and Denies dyspnea Gastrointestinal: Gastrointestinal: Denies abdominal pain, Denies dysphagia, Denies dyspepsia, Denies heartburn, Denies diarrhea, Denies nausea, Denies odynophagia and Denies vomiting Genitourinary: Genitourinary: Denies dysuria Musculoskeletal: Musculoskeletal: Reports arthralgias (Right wrist) and Reports limited range of motion (Right wrist) Integumentary/Breasts: Skin/Breast: Denies rash Neurologic: Denies focal weakness, Denies Sensory deficit (Neuro) and Denies weakness Psychiatric: Psychiatric: Reports no additional psychiatric complaints and Reports as per HPI Endocrine: Endocrine: Denies cold intolerance, Denies fatigue, Denies flushing, Denies heat intolerance, Denies polyphagia, Denies polydipsia and Denies palpitations Hematologic/Lymphatic: Hematologic/Lymphatic: Reports no additional hematologic/lymphatic complaints and Reports as per HPI Allergic/Immunologic: Allergic/Immunologic: Reports no additional allergic/immunologic complaints and Reports as per HPI Exam Const: General: cooperative and no acute distress Neck: Neck: supple and nontender Chest: Chest palpation & inspection: normal inspection of the chest Resp: Effort & Inspection: normal respiratory effort and no audible wheezes Extrem: Right upper extremity: wrist abnormal to inspection joint swelling, tenderness of the dorsal wrist, swelling of the dorsal wrist, abnormal ROM pain with active ROM during with extension and with flexion and with range as follows ( Minimal secondary to injury) and ecchymosis and Extremity exam: right hand normal capillary refill, neuromotor exam normal thumb IP flexion normal and fingers 2-5 ABduction normal, tendon exam normal of all digits and vascular exam radial pulse present and normal capillary refill Objective Data Vital Signs Vital Signs: Vital Signs - 24 hr 07/15/22 13:20 07/15/22 15:28 07/15/22 15:40 Temperature 99.0 F 97.1 F L Pulse Rate 54 L 57 L 60 Respiratory Rate 16 12 12 Blood Pressure 139/89 104/76 115/71 Pulse Oximetry 96 100 100 Oxygen
[2022-07-16 11:59] VITALS: BP 137/94; PULSE 50; RESP 16; TEMP 36.1; O2SAT 96
--- NOTE | 2022-07-16 12:33 | PM.PNORT ---
Progress Note: A&P Assessment and Plan (1) Closed fracture distal radius and ulna: Qualifiers: Encounter type: subsequent encounter Laterality: right Fracture healing: with routine healing Qualified Code(s): S52.501D - Unspecified fracture of the lower end of right radius, subsequent encounter for closed fracture with routine healing; S52.601D - Unspecified fracture of lower end of right ulna, subsequent encounter for closed fracture with routine healing Code(s): S52.509A - Unspecified fracture of the lower end of unspecified radius, initial encounter for closed fracture; S52.609A - Unspecified fracture of lower end of unspecified ulna, initial encounter for closed fracture Status: Acute Assessment and Plan: Postop day 1 open reduction internal fixation right distal radius. Splint in place. Ice and elevate. Pain control. D/C home when medically stable. Subjective Subjective Date/Time Seen: 07/16/22 12:33 Post Op day: 1 Principal diagnosis: right wrist fracture Interval history: Patient resting comfortably. Awake and alert. Oriented to person, place and time. Complains of minimal pain right wrist. Exam Const: General: comfortable; No acute distress Resp: Effort & Inspection: normal respiratory effort and no audible wheezes Extrem: Right upper extremity: wrist tenderness of the distal radius Right lower extremity: lower leg ( Negative Homans sign), ankle Details: normal ROM ( dorsiflexion and plantar flexion intact) and foot Details: vascular exam Details: dorsalis pedis pulse present and normal capillary refill, tendon exam Details: active flexion normal and active extension normal and motor-sensory exam Details: light-touch normal Location: in all toes; no edema Left lower extremity: normal to inspection, ankle Details: normal ROM and foot Details: vascular exam Details: dorsalis pedis pulse present and normal capillary refill and motor-sensory exam light-touch normal in all toes; no edema Other: right wrist splint intact. Fingers and thumb with good capillary refill. Able to move all fingers. Good sensation to light touch. Objective Data Vital Signs Vital Signs: Vital Signs - 24 hr 07/15/22 13:20 07/15/22 15:28 07/15/22 15:40 Temperature 99.0 F 97.1 F L Pulse Rate 54 L 57 L 60 Respiratory Rate 16 12 12 Blood Pressure 139/89 104/76 115/71 Pulse Oximetry 96 100 100 Oxygen Delivery Room Air Simple Face Mask Simple Face Mask Oxygen Flow Rate 8 8 07/15/22 15:55 07/15/22 16:10 07/15/22 16:25 Temperature Pulse Rate 60 59 L 53 L Respiratory Rate 12 14 18 Blood Pressure 166/96 H 162/99 H 160/85 H Pulse Oximetry 98 95 94 Oxygen Delivery Room Air Room Air Room Air Oxygen Flow Rate 07/15/22 16:40 07/15/22 16:55 07/15/22 17:25 Temperature 97.1 F L 96.6 F L 96.0 F L Pulse Rate 56 L 54 L 60 Respiratory Rate 16 16 16 Blood Pressure 104/76 153/109 H 136/89 Pulse Oximetry 92 100 96 Oxygen Delivery Oxygen Flow Rate 07/15/22 18:17 07/15/22 21:56 07/15/22 20:00 Temperature 97.0 F L 98.1 F Pulse Rate 56 L 82 Respiratory Rate 16 16 Blood Pressure 124/83 133/86 Pulse Oximetry 96 97 Oxygen Delivery Room Air Oxygen Flow Rate 07/16/22 02:17 07/16/22 06:17 07/16/22 08:31 Temperature 97.6 F 97.5 F L Pulse Rate 52 L 51 L 63 Respiratory Rate 16 16 Blood Pressure 155/78 H 138/79 Pulse Oximetry 96 96 Oxygen Delivery Oxygen Flow Rate 07/16/22 08:30 07/16/22 11:13 07/16/22 11:59 Temperature 96.9 F L Pulse Rate 50 L Respiratory Rate 16 Blood Pressure 137/94 H Pulse Oximetry 96 Oxygen Delivery Room Air Room Air Oxygen Flow Rate Intake/Output Intake/Output: Intake & Output 07/13/22 07/14/22 07/15/22 07/16/22 23:59 23:59 23:59 23:59 Intake Total 1830 730 490 Balance 1830 730 490 Meds/Results Medications: Active Medications Generic Name Dose Route Start Last Admin Trade Name Freq PRN Reason St
--- NOTE | 2022-07-16 14:57 | PM.DS ---
DS: Admitting Diagnosis Discharge Date 07/16/22 Admitting Diagnosis right Radial fracture DS: Discharge Diagnosis Discharge Diagnosis (1) Closed fracture distal radius and ulna: Qualifiers: Encounter type: subsequent encounter Fracture healing: with routine healing Laterality: right Qualified Code(s): S52.501D - Unspecified fracture of the lower end of right radius, subsequent encounter for closed fracture with routine healing; S52.601D - Unspecified fracture of lower end of right ulna, subsequent encounter for closed fracture with routine healing Code(s): S52.509A - Unspecified fracture of the lower end of unspecified radius, initial encounter for closed fracture; S52.609A - Unspecified fracture of lower end of unspecified ulna, initial encounter for closed fracture Status: Acute (2) Hypertension: Code(s): I10 - Essential (primary) hypertension Status: Acute (3) Rheumatoid arthritis: Code(s): M06.9 - Rheumatoid arthritis, unspecified Status: Acute DS: Summary Hospital Course Hospital Course: (1) Closed fracture distal radius and ulna: ?Qualifiers: ?Encounter type:?subsequent encounter??Laterality:?right??Fracture healing:?with routine healing? Qualified Code(s):?S52.501D - Unspecified fracture of the lower end of right radius, subsequent encounter for closed fracture with routine healing; S52.601D - Unspecified fracture of lower end of right ulna, subsequent encounter for closed fracture with routine healing ?Code(s): S52.509A - Unspecified fracture of the lower end of unspecified radius, initial encounter for closed fracture; S52.609A - Unspecified fracture of lower end of unspecified ulna, initial encounter for closed fracture ?Status:?Acute ?Assessment and Plan: ? Orthopedic surgery consulted. patient underwent ORIF. Postop day 1 open reduction internal fixation right distal radius.? Splint in place.? Ice and elevate.? Pain control. ? D/C home. medically stable. Time Spent with Patient Time attestation: Total time spent providing and/or coordinating discharge services: Discharge Plan Discharge Consulting providers: Airam Lyman Discharging Clinician: Don Sanchez Anticipated Discharge Date/Time: 07/16/22 14:56 Patient Disposition: Home, Self-Care Activity: no preference Diet: heart healthy Discharge Instructions: AIRAM LYMAN M.D. [facility] [address] [place] [id number] POST OPERATIVE DISCHARGE INSTRUCTIONS HAND SURGERY Elevate the involved extremity on pillows. For the first 48 hours, make sure that the arm is above the level of your heart At least 20 times a day, raise the involved hand above your head and exercise your shoulder. Carefully observe the exposed fingers for evidence of swelling or discoloration. If the dressing is uncomfortable or tight, call the Dr?s office. Keep the dressing clean and dry. Remove dressing only as directed by doctor. If the pain medication does not provide adequate relief, please call Dr?s office. Take other medication as prescribed. Please call Dr?s office to confirm follow-up appointment for 1-2 weeks. If you have any questions, please call the Dr?s office. Diet as tolerated. Activity: Resume pre-operative activity X Restrictions as follows: limit use of the affected hand Do not drive for 24 hours, unless otherwise instructed. Additional instructions: REV. 05/17 Patient Instructions: Antibiotic Form, Fall Prevention (DC), ORIF of a Wrist Fracture (DC) Stand Alone Forms: General Discharge Information Follow-up/Referrals: Airam Lyman MD [Physician] - PHYSICIAN NOT ON STAFF,NONSTAFF [Primary Care Provider] - Discharge Medications: New hydrocodone-acetaminophen 5-325 mg t
== END 2022-07-16 16:49 | disposition home or self-care (01) ==
LOC: ANHED 21:59 → ANH3MEDSUR 07-14 10:34
PROVIDERS: Orthopaedic Surgery; Admitting Provider Internal Medicine; Emergency Provider Physician Assistant; Visit Provider Hospitalist
PROC: (CPT 25575; principal; 2022-07-15 13:30)
DX: S52.571A Other intraarticular fracture of lower end of right radius, initial encounter for closed fracture (principal); S52.611A Displaced fracture of right ulna styloid process, initial encounter for closed fracture; W01.0XXA Fall on same level from slipping, tripping and stumbling without subsequent striking against object, initial encounter; M06.9 Rheumatoid arthritis, unspecified; G93.89 Other specified disorders of brain; R51.9 Headache, unspecified; I10 Essential (primary) hypertension; G89.29 Other chronic pain; F41.9 Anxiety disorder, unspecified; Z87.891 Personal history of nicotine dependence; Z79.899 Other long term (current) drug therapy
CPT/HCPCS: 25609; 25605; 36415; 70450; 70486; 73030; 73070; 73110; 80053; 85025; 85610; 96372; 96374; 96375; 96376; 97161; 97165; 97530; 99199; 99285; A9270; C1713; C1776; G0378; J0690; J1100; J1170; J1650; J1885; J2250; J2270; J2405; J2704; J3010; J7120

== ENCOUNTER → 2022-12-25 13:01 | Outpatient (CLI) | payer MEDICARE, OTHER, SELFPAY ==
--- NOTE | ~2022-12-25 | US_ITS ---
US soft tissue UE RT 12/25/2022 13:49 Indication: Palpable abnormality right upper arm in the bicep area. Procedure: High-resolution Limited ultrasound of the right upper arm in the area of palpable concern Comparison: No prior studies for comparison. Findings: Normal heterogeneous soft tissues without discrete solid or cystic mass. There is normal co ntinuity the muscular fibers. Impression: 1: Normal soft tissue ultrasound of the right upper extremity and the area of palpable concern. Reviewed, dictated and finalized at location A. Impression: 1: Normal soft tissue ultrasound of the right upper extremity and the area of p alpable concern.
== END ==
PROVIDERS: PCP Orthopaedic Surgery; Visit Provider Orthopaedic Surgery
DX: R22.31 Localized swelling, mass and lump, right upper limb (principal)
CPT/HCPCS: 76882

== ENCOUNTER 2023-03-25 00:25 | Day surgery (SDC) | payer MEDICARE, OTHER, SELFPAY ==
--- NOTE | 2023-02-17 15:22 | PC.NURSE ---
Report to the Outpatient Waiting Room, entrance under the green pavilion located off [facility], at time _0600 on date __03/01/23 . Planned Procedure Time: _0730 . Time changes happen often and if your time is changed the preop area will call you the afternoon before. - You and your visitor will be asked to self-screen and do not enter if you have any COVID symptoms. - A mask is optional within the hospital at this time. Patients may have clear liquids (water, carbonated beverages, clear teas, apple juice) until 3 hours prior to surgery with a maximum of 20 ounces. - No food from midnight until time of surgery - Infants may have breast milk until 4 hours before surgery, formula 6 hours prior to surgery. - Children will be allowed to drink immediately following surgery. If applicable, please bring a bottle or sippy cup to assist with drinking. Juice, water, soda, and popsicles are readily available. For infants on formula, please bring formula the day of surgery. Pacifiers are allowed. Take the following medications with a SIP of water the morning of surgery: ___ADVAIR INHALER,,MORPHINE IF NEEDED FOR PAIN, DO NOT STOP ANY OF YOUR OTHER PRESCRIPTION MEDICATIONS PRIOR TO SURGERY ?EXCEPT THE FOLLOWING Medications to discontinue per physician ALL VITAMINS AND SUPPLEMENTS 3 DAYS PRE OP.LAST DOSE 02/25/23 Please no make-up, nail chinese, hairspray, perfume, deodorant, or body powder the day of surgery. No jewelry (including any body piercings) or valuables the day of surgery, leave them at home. Please take a shower or bath the night before, or the morning of, surgery with an antibacterial soap. Wear comfortable, loose fitting clothing. Children are encouraged to wear pajamas. - Jewelry must be removed prior to entering the operating room. Rings and piercings that are not removed may be cut off. - The hospital will not accept responsibility for valuables. - Please leave all valuables, including medications, at home the day of surgery. If you are going home after surgery, a licensed driver recruiter must drive you home. - NO public transportation without another adult if you receive anesthesia. - We recommend that an adult stay with you for 24 hours following discharge. - We also recommend that you do not drive, make important decision, drink alcoholic beverages, or take any drugs that were not prescribed by your health care provider for at least 24 hours after your discharge time. For Pediatric surgeries, we recommend two adults accompany the child home. Follow any additional instructions given to you from your surgeon. If you or anyone in your household have experienced Covid symptoms in the past week, please notify your surgeon or the nurse liaison at the phone number below for possible testing. Telephone instructions given to ___PATIENT and asked if any additional questions and then verbalized understanding. Patient advised to call surgeon office or pre surgery nurse liaison [phone] if any additional questions.
[2023-02-17 15:38] VITALS: BMI 25.0
--- NOTE | 2023-02-24 12:57 | PM.IMHP ---
H&P: HPI History of Present Illness Date/Time: 02/24/23 12:57 Chief Complaint: Right arm mass Narrative: development of right arm mass over the biceps. Concerning for progressive enlargement. Mild tenderness surrounding the area. Denies injury. Presents for operative excision and biopsy. Review of Systems Constitutional: Constitutional: Denies fever(s) Eyes: Eyes: Denies blurry vision ENT: Reports Normal hearing present Cardiovascular: Cardiovascular: Denies chest pain and Denies dyspnea Respiratory: Respiratory: Denies dyspnea and Denies wheezing Gastrointestinal: Gastrointestinal: Denies abdominal pain Genitourinary: Genitourinary: Denies urinary urgency Musculoskeletal: Musculoskeletal: Reports as per HPI and Denies numbness Integumentary/Breasts: Skin/Breast: Denies changing lesions and Denies sores Neurologic: Reports Normal hearing present, Denies behavioral changes, Denies confusion, Denies numbness and Denies convulsions Psychiatric: Psychiatric: Denies behavioral changes, Denies confusion and Denies hallucinations Endocrine: Endocrine: Denies heat intolerance Hematologic/Lymphatic: Hematologic/Lymphatic: Denies easy bleeding Allergic/Immunologic: Allergic/Immunologic: Denies wheezing PMFSH Past Medical History Medical History Anxiety Chronic pain Hypertension Left knee pain Mass of right upper extremity Rheumatoid arthritis Right knee DJD Rupture of proximal biceps tendon Surgical History Surgical History History of surgery on wrist ORIF 07/15/22 Family History Family History Unknown Arthritis Social History Social History Smoking packs per day: 1 Smoking cigarettes per day: 20.0 Years smoked: 38 Smoking pack-years: 38.00 Smoking status: Former smoker Tobacco type: cigarettes Smoking end date: 04/05/18 Alcohol intake: never Substance use: never Lack of Transportation: No Lack of Food: Never True Current Housing: I Have Housing Concerned About Future Housing: No Difficulty Paying Gas/Electric Bills: No Difficulty Paying for Meds: No Currently Unemployed: No Education: Associate Degree Difficulty w/ Childcare or Family Care: No Living arrangements: with family Occupation/Education: occupation 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 Gender identity (if verbalized by the patient): Female Spiritual care concerns: No Meds Home Medications and Allergies Home Medications Medication Instructions Recorded Confirmed Type alprazolam 0.5 mg tablet 1 tablet PO HS PRN Anxiety 10/20/21 02/17/23 History nebivolol 20 mg tablet 1 tablet PO QNOON 10/20/21 02/17/23 History doxazosin 4 mg tablet 8 mg PO DAILY 07/14/22 02/17/23 History lisinopril 20 mg tablet 20 mg PO DAILY 07/14/22 02/17/23 History morphine 30 mg tablet,extended 30 mg PO Q12H 07/14/22 02/17/23 History release acetaminophen 500 mg capsule 1,000 mg PO Q6H PRN Pain 02/17/23 02/17/23 History albuterol sulfate 90 mcg/actuation 2 puff inhalation PRN PRN 02/17/23 02/17/23 History aerosol inhaler Shortness Of Breath aspirin 325 mg tablet,delayed 325 mg PO DAILY 02/17/23 02/17/23 History release cholecalciferol (vitamin D3) 125 125 mcg PO DAILY 02/17/23 02/17/23 History mcg (5,000 unit) tablet fluticasone 250 mcg-salmeterol 50 1 inh inhalation BID 02/17/23 02/17/23 History mcg/dose blistr powdr for inhalation (Advair Diskus) lactobacillus combination no.4 3 3,000 mmu cells PO DAILY 02/17/23 02/17/23 History billion cell capsule (Probiotic) multivitamin with minerals 1 tablet PO DAILY 02/17/23 02/17/23 History (Hair,Skin and Nails tablet) multivitamin with minerals-folic 1 tablet PO DAILY 02/17/23 02/17/23 His
--- NOTE | 2023-03-19 12:19 | PC.NURSE ---
Report to the Outpatient Waiting Room, entrance under the green pavilion located off [facility], at time _1000 on date _03/25/23 . Planned Procedure Time: _1200 . Time changes happen often and if your time is changed the preop area will call you the afternoon before. - You and your visitor will be asked to self-screen and do not enter if you have any COVID symptoms. - A mask is optional within the hospital at this time. Patients may have clear liquids (water, carbonated beverages, clear teas, apple juice) until 3 hours prior to surgery( 9AM) with a maximum of 20 ounces. - No food from midnight until time of surgery - Infants may have breast milk until 4 hours before surgery, infant formula 6 hours prior to surgery. - Children will be allowed to drink immediately following surgery. If applicable, please bring a bottle or sippy cup to assist with drinking. Juice, water, soda, and popsicles are readily available. For infants on formula, please bring formula the day of surgery. Pacifiers are allowed. Take the following medications with a SIP of water the morning of surgery: __ADVAIR INHALER AND MORPHINE IF NEEDED FOR PAIN DO NOT STOP ANY OF YOUR OTHER PRESCRIPTION MEDICATIONS PRIOR TO SURGERY ?EXCEPT THE FOLLOWING Medications to discontinue per physician ALL VITAMINS AND SUPPLEMENTS 3 DAYS PRE OP.LAST DOSE 03/21/23 Please no make-up, nail lao, hairspray, perfume, deodorant, or body powder the day of surgery. No jewelry (including any body piercings) or valuables the day of surgery, leave them at home. Please take a shower or bath the night before, or the morning of, surgery with an antibacterial soap. Wear comfortable, loose fitting clothing. Children are encouraged to wear pajamas. - Jewelry must be removed prior to entering the operating room. Rings and piercings that are not removed may be cut off. - The hospital will not accept responsibility for valuables. - Please leave all valuables, including medications, at home the day of surgery. If you are going home after surgery, a licensed wagon driver must drive you home. - NO public transportation without another adult if you receive anesthesia. - We recommend that an adult stay with you for 24 hours following discharge. - We also recommend that you do not drive, make important decision, drink alcoholic beverages, or take any drugs that were not prescribed by your health care provider for at least 24 hours after your discharge time. For Pediatric surgeries, we recommend two adults accompany the child home. Follow any additional instructions given to you from your surgeon. If you or anyone in your household have experienced Covid symptoms in the past week, please notify your surgeon or the nurse liaison at the phone number below for possible testing. Telephone instructions given to ___PATIENT and asked if any additional questions and then verbalized understanding. Patient advised to call surgeon office or pre surgery nurse liaison [phone] if any additional questions.
--- NOTE | 2023-03-19 12:25 | PC.NURSE ---
PT STATES NO CHANGE IN HEALTH HX SINCE LAST INTERVIEW 02/17/23
--- NOTE | 2023-03-24 13:54 | WPDANESEPPF ---
Anes - Initial Pre Proc Eval Procedure: Operation Date: 03/25/23 12:00 Proposed Procedures p Excision Right Arm Mass - Jaswinder Cisneros MD Date/Time: 03/24/23 13:54 Surgeon: Jaswinder Cisneros MD Pre Op Diagnosis: right arm mass Patient Data Age: 67 Gender: F Height: 1.68 m Weight: 70.35 kg Allergies Allergy/AdvReac Type Severity Reaction Status Date / Time No Known Allergies Allergy Verified 03/25/23 11:08 Home Medications Medication Instructions Recorded Confirmed Type alprazolam 0.5 mg tablet 1 tablet PO HS PRN Anxiety 10/20/21 03/25/23 History nebivolol 20 mg tablet 1 tablet PO QNOON 10/20/21 03/25/23 History doxazosin 4 mg tablet 8 mg PO DAILY 07/14/22 03/25/23 History lisinopril 20 mg tablet 20 mg PO DAILY 07/14/22 03/25/23 History morphine 30 mg tablet,extended 30 mg PO Q12H 07/14/22 03/25/23 History release acetaminophen 500 mg capsule 1,000 mg PO Q6H PRN Pain 02/17/23 03/25/23 History albuterol sulfate 90 mcg/actuation 2 puff inhalation PRN PRN 02/17/23 03/25/23 History aerosol inhaler Shortness Of Breath cholecalciferol (vitamin D3) 125 125 mcg PO DAILY 02/17/23 03/25/23 History mcg (5,000 unit) tablet fluticasone 250 mcg-salmeterol 50 1 inh inhalation BID 02/17/23 03/25/23 History mcg/dose blistr powdr for inhalation (Advair Diskus) lactobacillus combination no.4 3 3,000 mmu cells PO DAILY 02/17/23 03/25/23 History billion cell capsule (Probiotic) multivitamin with minerals 1 tablet PO DAILY 02/17/23 03/25/23 History (Hair,Skin and Nails tablet) multivitamin with minerals-folic 1 tablet PO DAILY 02/17/23 03/25/23 History acid 80 mcg chewable tablet (Centrum Adult 50 Plus) pantoprazole 40 mg tablet,delayed 40 mg PO DAILY 02/17/23 03/25/23 History release tiotropium bromide 2.5 1 puff inhalation HS 02/17/23 03/25/23 History mcg/actuation mist for inhalation (Spiriva Respimat) tumeric 100 mg-claire 150 mg-olive 1 cap PO HS 02/17/23 03/25/23 History 50 mg-oreg 150 mg-caprylate capsule aspirin 81 mg tablet,delayed 81 mg PO DAILY 03/19/23 03/25/23 History release (Adult Low Dose Aspirin) Patient hx anesthesia problems: none Family hx anesthesia problems: none Results Review: All pre-operative results and documents have been reviewed as part of the pre-operative evaluation. [facility] Past Medical History Medical History (Updated 03/24/23 @ 13:55 by Panakj Reid DO) Anxiety Chronic pain Chronic, continuous use of opioids 30 mg morphine x 2 years Emphysema lung Hydrocephalus as child Hypertension Left knee pain Mass of right upper extremity Rheumatoid arthritis Right knee DJD Rupture of proximal biceps tendon Surgical History Surgical History History of surgery on wrist ORIF 07/15/22 Family History Family History Unknown Arthritis Social History Social History Smoking packs per day: 1 Smoking cigarettes per day: 20.0 Years smoked: 38 Smoking pack-years: 38.00 Smoking status: Former smoker Tobacco type: cigarettes Smoking end date: 04/05/18 Alcohol intake: never Substance use: never Lack of Transportation: No Lack of Food: Never True Current Housing: I Have Housing Concerned About Future Housing: No Difficulty Paying Gas/Electric Bills: No Difficulty Paying for Meds: No Currently Unemployed: No Education: Associate Degree Difficulty w/ Childcare or Family Care: No Living arrangements: with family Occupation/Education: occupation 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
[2023-03-25] VITALS (7 sets, daily range): BP systolic 117–163; BP diastolic 67–110; PULSE 59–71; RESP 12–18; TEMP 36.2–36.4; O2SAT 91–100
[2023-03-25] MEDS: LACTATED RINGERS 1,000 ML 30 ML IV CONT ×2 (11:00→13:26)
[2023-03-25] MEDS: ACETAMINOPHEN 500 MG TABLET 1000 MG PO (11:10)
[2023-03-25] MEDS: KETOROLAC 15 MG/ML VIAL (*BKC) IV PUSH (11:10)
--- NOTE | 2023-03-25 11:16 | WPDHPUPDATE1 ---
History and Physical Update Update Date/Time: 03/25/23 11:16 History and Physical has been reviewed, including an updated exam of the patient. There are NO changes in the patient's condition. Risks, benefits, and alternatives have been discussed and questions answered. Patient agrees to proceed with procedure.
[2023-03-25] MEDS: SCOPOLAMINE 1 MG PATCH 1 PATCH TRANSDERM (11:50)
[2023-03-25] MEDS: ceFAZolin 2 GM/D5W 50 ML 2 GM/50 ML BAG IVPB (11:57)
[2023-03-25] MEDS: BUPivacaine HCL 0.5% 10 ML AMP INFILTRATE (12:18)
--- NOTE | 2023-03-25 13:05 | SUR.PHASEI ---
1305: Simple mask removed.
[2023-03-25] MEDS: fentaNYL CITRATE INJ (*CRX) 100 MCG/2 ML VIAL 25 MCG IV PUSH ×3 (13:10→13:17)
--- NOTE | 2023-03-25 13:13 | P.OP_ITS ---
Procedure Note - Detailed Date of Procedure 03/25/23 Pre-op Diagnosis right arm mass Post-op Diagnosis Same Procedure Performed excision of right arm mass Surgeon Jaswinder Cisneros MD Automatic Cigar Wrapper Tender 1st exceptional children teacher assistant Anesthesia General Indications 67-year-old with a palpable mass in the right arm over the biceps area. Ultrasound failed to demonstrate separate pathology. Presents now for operative removal. Findings Scar tissue of the anterior bicep at the muscle tendon junction. Proximally 2 cm area of scar tissue which was non contractile. Description of Procedure Patient identified in the preoperative holding. Informed consent given. Operative extremity marked. Patient received intravenous antibiotics. Patient brought to the operating room where underwent general anesthetic by anesthesia team. Positioned supine on operating room table. Time-out performed confirming the patient, site of the surgery and the plan. Right arm then prepped and draped usual sterile surgical fashion using a ChloraPrep skin solution. Longitudinal incision was made over the anterior biceps where the palpable mass was with a 15 blade knife. Hemostasis controlled electrocautery. Proximally 2 cm length incision. dissection carried down to the fascia which was incised in line with skin incision. This allowed visualization of the palpable mass which appeared to be scar tissue over the biceps muscle. Using a Bovie cautery the muscle was tested and found to be non contractile. The thickened firm area of muscle was then sharply excised with Bovie cautery passed off as specimen. Wound was irrigated and the fascia was closed with 3-0 Monocryl interrupted suture. Subcutaneous tissue. With 3-0 Monocryl interrupted suture and the skin repaired with 4-0 Monocryl subcuticular stitch and Dermabond. Sterile dressing applied. The patient was then woken from anesthesia, extubated and taken to the recovery room in stable condition. All sponge, needle, instrument counts were correct at the end of the case. Estimated Blood Loss 10 Tourniquet Time Total Tourniquet Time: 0 Drains No Packing No Pathology Yes ( Right arm mass) Complications None Condition Stable Disposition PACU [facility] Billing Surgery - Charge Forward: Surgery Billing ([id number])
--- NOTE | 2023-03-25 13:38 | SUR.PHASEI ---
Dr. Reid aware of BP and doesn't want to treat at this time.
[2023-03-25] MEDS: oxyCODONE HCL (*CRX) 5 MG TAB IR PO (14:17)
== END 2023-03-25 14:45 | disposition home or self-care (01) ==
PROVIDERS: Visit Provider Orthopaedic Surgery
PROC: (CPT 24076; principal; 2023-03-25 12:00)
DX: M79.89 Other specified soft tissue disorders (principal); J43.9 Emphysema, unspecified; I10 Essential (primary) hypertension; M06.9 Rheumatoid arthritis, unspecified; G89.29 Other chronic pain; F41.9 Anxiety disorder, unspecified; Z87.891 Personal history of nicotine dependence; Z79.51 Long term (current) use of inhaled steroids; Z79.82 Long term (current) use of aspirin; Z79.891 Long term (current) use of opiate analgesic
CPT/HCPCS: 24076; 88307; A4565; A9270; J0690; J1100; J1885; J2250; J2405; J2704; J3010; J7120

== ENCOUNTER 2023-05-17 14:29 | Emergency (ER) | payer MEDICARE, OTHER, SELFPAY ==
[2023-05-17 14:43] VITALS: BP 114/84; PULSE 76; RESP 20; TEMP 37; O2SAT 98
--- NOTE | 2023-05-17 15:34 | ED.URI ---
HPI - URI/Sore Throat General Chief Complaint: Upper Respiratory Infection Stated Complaint: Sinus Time Seen by Provider: 05/17/23 15:34 Source: patient and RN notes reviewed Mode of arrival: ambulatory Limitations: no limitations History of Present Illness HPI Narrative: 68-year-old female presents concern for 5 day history of headache, nasal congestion, runny nose, body aches, general malaise. She denies taking any medications [id number] for her symptoms. Reports her family members had similar symptoms. MD elicited complaint: rhinorrhea and nasal congestion Related Data Home Medications Medication Instructions Recorded Confirmed alprazolam 0.5 mg tablet 1 tablet PO HS PRN Anxiety 10/20/21 05/17/23 nebivolol 20 mg tablet 1 tablet PO QNOON 10/20/21 04/06/23 doxazosin 4 mg tablet 8 mg PO DAILY 07/14/22 05/17/23 lisinopril 20 mg tablet 20 mg PO DAILY 07/14/22 04/06/23 morphine 30 mg tablet,extended 30 mg PO Q12H 07/14/22 04/06/23 release acetaminophen 500 mg capsule 1,000 mg PO Q6H PRN Pain 02/17/23 05/17/23 albuterol sulfate 90 mcg/actuation 2 puff inhalation PRN PRN 02/17/23 05/17/23 aerosol inhaler Shortness Of Breath cholecalciferol (vitamin D3) 125 125 mcg PO DAILY 02/17/23 05/17/23 mcg (5,000 unit) tablet fluticasone 250 mcg-salmeterol 50 1 inh inhalation BID 02/17/23 05/17/23 mcg/dose blistr powdr for inhalation (Advair Diskus) lactobacillus combination no.4 3 3,000 mmu cells PO DAILY 02/17/23 04/06/23 billion cell capsule (Probiotic) multivitamin with minerals 1 tablet PO DAILY 02/17/23 04/06/23 (Hair,Skin and Nails tablet) multivitamin with minerals-folic 1 tablet PO DAILY 02/17/23 05/17/23 acid 80 mcg chewable tablet (Centrum Adult 50 Plus) pantoprazole 40 mg tablet,delayed 40 mg PO DAILY 02/17/23 04/06/23 release tiotropium bromide 2.5 1 puff inhalation HS 02/17/23 04/06/23 mcg/actuation mist for inhalation (Spiriva Respimat) turmeric 100 mg-claire 150 1 cap PO HS 02/17/23 04/06/23 mg-olive 50 mg-oreg 150 mg-capryl capsule aspirin 81 mg tablet,delayed 81 mg PO DAILY 03/19/23 05/17/23 release (Adult Low Dose Aspirin) Allergies Allergy/AdvReac Type Severity Reaction Status Date / Time No Known Allergies Allergy Verified 04/27/23 09:20 Review of Systems Review of Systems: CONSTITUTIONAL: Reports malaise, fatigue. Denies chills, sweats, or fever. EYES: Denies visual changes, redness, or discharge. ENT: Reports rhinorrhea, congestion denies sinus pain, otalgia and sore throat. CARDIOVASCULAR: Denies chest pain, palpitations, or edema. RESPIRATORY: Reports cough. Denies dyspnea. GASTROINTESTINAL: Denies abdominal pain, nausea, vomiting, diarrhea SKIN: Denies rash or itching. MUSCULOSKELETAL: Reports myalgia. NEUROLOGIC: Denies headache. All systems reviewed & are unremarkable except as noted in HPI and below PMFSH Past Medical History Medical History (Updated 05/17/23 @ 15:39 by Alissa Jackson NP) Anxiety Chronic pain Chronic, continuous use of opioids 30 mg morphine x 2 years Degenerative arthritis of knee, bilateral Effusion of knee joint right Emphysema lung Hydrocephalus as child Hypertension Left knee DJD Left knee pain Mass of right upper extremity Rheumatoid arthritis Right knee DJD Rupture of proximal biceps tendon Surgical History Surgical History History of surgery on wrist ORIF 07/15/22 Family History Family History Unknown Arthritis Social History Social History Smoking packs per day: 1 Smoking cigarettes per day: 20.0 Years smoked: 38 Smoking pack-years: 38.00 Smoking status: Former smoker Tobacco type: cigarettes Smoking end date: 04/05/18 Alcohol intake: never Substance use: never Lack of Transportation: No Lack of Food: Never True Current Martin
== END 2023-05-17 15:51 | disposition home or self-care (01) ==
PROVIDERS: Emergency Provider Nurse Practitioner
DX: J06.9 Acute upper respiratory infection, unspecified (principal); Z20.822 Contact with and (suspected) exposure to COVID-19; F41.9 Anxiety disorder, unspecified; I10 Essential (primary) hypertension; M06.9 Rheumatoid arthritis, unspecified; Z87.891 Personal history of nicotine dependence
CPT/HCPCS: 87426; 87804; 99213; G0463

== ENCOUNTER 2023-05-20 21:58 | Inpatient (IN) | payer MEDICARE, OTHER, SELFPAY ==
--- NOTE | ~2023-05-20 | CT_ITS ---
CT head without contrast Indication: Confusion COMPARISON: 07/13/2022 Technique: Serial scans were obtained through the brain without the administration of contrast. Dose reduction technique was used on this scan by utilizing automated exposure control and iterative recon struction technique. The dose-length product (DLP) was 605.33 mGy-cm. Findings: No intracranial hemorrhage or acute infarct seen. Stable probable calcified mass at the hig h posterior right parietal lobe.. The ventricles and subarachnoid spaces are dilated, stable from pr ior exam. Left-sided ventricular shunt catheter is unchanged. Stable cystic area just superior to the cerebellar vermis. Low attenuation regions are seen within the periventricular white matter bilatera lly, likely representing changes from chronic microvascular ischemic disease. There is no evidence of edema, mass effect or midline shift. The visualized paranasal sinuses and mastoid air cells are cl ear. Impression: No acute abnormality. Chronic findings, as above, including calcified high right posterior parietal extra-axial mass, as we ll as cystic areas superior to cerebellar vermis. Stable atrophic changes and chronic microvascular i schemic change. Stable ventriculostomy shunt catheter. Reviewed, dictated and finalized at location [facility] [employer] Impression: No acute abnormality. Chronic findings, as above, including calcified high right posterior parietal e xtra-axial mass, as well as cystic areas superior to cerebellar vermis. Stable atrophic changes and chronic microvascular ischemic change. Stable ventriculost jacquelyn shunt catheter.
--- NOTE | ~2023-05-20 | XR_ITS ---
Shunt series Clinical history: Evaluate AIR HOIST OPERATOR shunt TECHNIQUE: Radiographic images along the course of the patient were performed. FINDINGS: AIR HOIST OPERATOR shunt noted. There is extensive calcification along the course of the shunt in the cervi yulisa portion of the chest. Abdominal radiograph does not demonstrate the distal portion of the shunt c learly, possibly the superior portion of the abdomen which is excluded from the [id number]. Osseou s structures appear intact. Lungs are clear, without focal consolidation or pleural effusion. Cardiac silhouette unremarkable. Bowel gas pattern nonspecific. IMPRESSION: Distal portion of AIR HOIST OPERATOR shunt in the abdomen is not visualized. Extensive calcification along the course of the shunt in the neck. Reviewed, dictated and finalized at location . R BELT CONVEYOR
--- NOTE | ~2023-05-20 | CT_ITS ---
Clinical Indication: Sepsis CT Scan of the Chest, Abdomen, and Pelvis without Contrast: Technique: Contiguous sections were acquired throughout the chest, abdomen, and pelvis without IV con trast administration. Dose reduction technique was used on this scan by utilizing automated exposure control and iterative reconstruction technique. The dose-length product (DLP) was 605.48 mGy-cm. Findings: There is no evidence of any significant mediastinal, hilar or axillary lymphadenopathy. The mediastin al soft tissues appear normal. Small to moderate pericardial effusion. There is no evidence of pleural or pericardial effusion. The lungs are clear. No pulmonary nodules or infiltrates are noted. Moderate emphysema present. The liver, spleen, pancreas, gallbladder, adrenals and kidneys are within normal limits. There are at herosclerotic calcifications of the aorta. No lymphadenopathy. No bowel obstruction or bowel wall thickening. There is no evidence to suggest acute appendicitis. Urinary bladder is unremarkable. No pelvic mass seen. No ascites. Impression: Moderate emphysema. [id number] pericardial effusion. No significant abnormality evident in the abdomen or pelvis. Reviewed, dictated and finalized at [facility]. [employer]ER[employer] RADIOLOGIC TECHNOLOGIST Impression: Moderate emphysema. Feldu-wx-wsiszkar pericardial effusion. No significant abnormality evident in the abdomen or pelvis.
[2023-05-20 22:06] VITALS: BP 86/52; PULSE 74; RESP 16; TEMP 36.3; O2SAT 94
--- NOTE | 2023-05-20 22:21 | ECG_ITS ---
Measurements Intervals Grady Rate: 71 P: 53 ND: 142 QRS: -3 QRSD: 89 T: 52 QT: 422 QTc: 459 Interpretive Statements SINUS RHYTHM MINIMAL ST DEPRESSION [0.025+ mV ST DEPRESSION] ABNORMAL ECG NO PREVIOUS ECG AVAILABLE FOR COMPARISON Electronically Signed On 05-21-2023 15:06:27 MEDIA ANALYST by Robert Ovalles M.D.
[2023-05-20 22:32] LABS: Basophils Absolute Auto 0.1 K/mm3 (0.0-0.1); Basophils Percent Auto 0.3 % (0.2-1.2); Eosinophils Absolute Auto 0.1 K/mm3 (0-0.3); Eosinophils Percent Auto 0.3 % (0-4.4); Hematocrit 30.5 % (37.0-47.0); Hemoglobin 9.7 g/dL (12.0-15.0); Immature Granulocyte Absolute 0.34 K/mm3 (0.00-0.031); Immature Granulocyte Percent A 1.5 % (0-0.5); Lymphocytes Absolute Auto 1.13 K/mm3 (0.9-3.2); Lymphocytes Percent Auto 4.9 % (18.3-44.2); Mean Corpuscular HGB Conc 31.8 g/dl (32-36); Mean Corpuscular Hemoglobin 28.3 pg (26-34); Mean Corpuscular Volume 88.9 fl (80-100); Mean Platelet Volume 9.4 fl (7.4-10.4); Monocytes Absolute Auto 1.5 K/mm3 (0.1-0.6); Monocytes Percent Auto 6.4 % (2.6-8.5); Neutrophils Absolute Auto 19.8 K/mm3 (1.3-6.7); Neutrophils Percent Auto 86.6 % (45.5-73.1); Platelet Count Result 322 k/mm3 (150-375); Red Blood Count 3.43 M/mm3 (4.2-5.4); Red Cell Distribution Width 14.1 % (11.5-14.5); White Blood Count 22.9 K/mm3 (4.5-10.0)
[2023-05-20 22:43] LABS: INR 1.4; Prothrombin Time 17.9 Seconds (11.1-14.7)
[2023-05-20 22:44] LABS: Partial Thromboplastin Time 41.9 SECONDS (22.3-36.8)
[2023-05-20 22:45] LABS: Alanine Aminotransferase 57 U/L (6-35); Alkaline Phosphatase 121 U/L (38-126); Anion Gap 8 mmol/L (8-16); Aspartate Amino Transferase 87 U/L (14-36); Bilirubin,Total 0.6 mg/dL (0.2-1.3); Blood Urea Nitrogen 32 mg/dL (7-17); Calcium 8.8 mg/dL (8.4-10.2); Carbon Dioxide 26 mmol/L (22-30); Chloride 91 mmol/L (98-107); Estimated CRCL calculation 27 ml/min; Estimated Glomerular Filt Rate 28; Glucose 125 mg/dL (65-110); Sodium 125 mmol/L (137-145)
[2023-05-20 23:09] LABS: Appearance Urine Turbid (Clear); Bacteria Urine 4+ /hpf; Bilirubin Urine Negative (Negative); Blood Urine 2+ (Negative); Color Urine Yellow (Yellow); Glucose Urine UA Negative (Negative); Ketones Urine Negative (Negative); Leukocyte Esterase Ur 3+ LEU/UL (Negative); Need Manual Microscopic Reviewed; Nitrate Urine Negative (Negative); Non Pathogenic Casts >20; Protein Urine 3+ mg/dL (Negative); Specific Grav Ur 1.013 (1.001-1.035); Squamous Epithelial Cell Urine Few /hpf (Few); WBC Urine >100 /hpf; pH Urine 6.5 (5.0-9.0)
[2023-05-20 23:10] LABS: Add Urine Microscopic? YES
--- NOTE | 2023-05-20 23:21 | ED.GENADULT ---
HPI - General Adult General Chief complaint: Altered Mental Status Stated complaint: feeling unwell Time Seen by Provider: 05/20/23 22:23 Source: patient and family Limitations: no limitations History of Present Illness HPI narrative: patient is a 68-year-old female presents to the emergency department accompanied by family for feeling tired for the past 1 week. Patient states she is feeling generally weak. Patient to an urgent care a couple days ago was told that she had the flu. Patient admits to decreased oral intake because she has not wanted to eat or drink much and also has been having decreased urine output. Patient admits to lightheadedness whenever she stands up but has not fully passed out when she has had multiple episodes for past couple days. Patient denies any new or change medications and she has been taking all her medications as prescribed. Patient denies any focal weakness, numbness, vision changes, difficulty swallowing, chest pain, difficulty breathing, abdominal pain, nausea, vomiting, diarrhea, melena, hematochezia, urinary discomfort, rash. Family states the patient has been slightly confused over patient is alert and oriented x4. Patient denies headache. Patient admits to some chills but no fever. Family states that the patient has been seeming a little bit more labored in her breathing but patient denies any difficulty breathing. Patient admits to a dry cough. Related Data Home Medications Medication Instructions Recorded Confirmed alprazolam 0.5 mg tablet 1 tablet PO HS PRN Anxiety 10/20/21 05/17/23 nebivolol 20 mg tablet 1 tablet PO QNOON 10/20/21 04/06/23 doxazosin 4 mg tablet 8 mg PO DAILY 07/14/22 05/17/23 lisinopril 20 mg tablet 20 mg PO DAILY 07/14/22 04/06/23 morphine 30 mg tablet,extended 30 mg PO Q12H 07/14/22 04/06/23 release acetaminophen 500 mg capsule 1,000 mg PO Q6H PRN Pain 02/17/23 05/17/23 albuterol sulfate 90 mcg/actuation 2 puff inhalation PRN PRN 02/17/23 05/17/23 aerosol inhaler Shortness Of Breath cholecalciferol (vitamin D3) 125 125 mcg PO DAILY 02/17/23 05/17/23 mcg (5,000 unit) tablet fluticasone 250 mcg-salmeterol 50 1 inh inhalation BID 02/17/23 05/17/23 mcg/dose blistr powdr for inhalation (Advair Diskus) lactobacillus combination no.4 3 3,000 mmu cells PO DAILY 02/17/23 04/06/23 billion cell capsule (Probiotic) multivitamin with minerals 1 tablet PO DAILY 02/17/23 04/06/23 (Hair,Skin and Nails tablet) multivitamin with minerals-folic 1 tablet PO DAILY 02/17/23 05/17/23 acid 80 mcg chewable tablet (Centrum Adult 50 Plus) pantoprazole 40 mg tablet,delayed 40 mg PO DAILY 02/17/23 04/06/23 release tiotropium bromide 2.5 1 puff inhalation HS 02/17/23 04/06/23 mcg/actuation mist for inhalation (Spiriva Respimat) turmeric 100 mg-claire 150 1 cap PO HS 02/17/23 04/06/23 mg-olive 50 mg-oreg 150 mg-capryl capsule aspirin 81 mg tablet,delayed 81 mg PO DAILY 03/19/23 05/17/23 release (Adult Low Dose Aspirin) Allergies Allergy/AdvReac Type Severity Reaction Status Date / Time No Known Allergies Allergy Verified 04/27/23 09:20 Review of Systems Review of Systems: A 10 system review of systems was completed on the patient and is negative except for what is stated in the HPI. Nursing and ancillary documentation was reviewed. [facility] Past Medical History Medical History (Updated 05/21/23 @ 00:14 by Marco Jimenez, ) Anxiety Chronic pain Chronic, continuous use of opioids 30 mg morphine x 2 years Degenerative arthritis of knee, bilateral Effusion of knee joint right Emphysema lung Hydrocephalus as child Hypertension Left knee DJD Left knee pain Mass of right upper extremity Rheumatoid arthritis Right knee DJD Rupture of proximal biceps tendon Surgical History Surgical History History of surgery on wrist ORIF 07/15/22 Family History Family History (Reviewed
[2023-05-20 23:52] LABS: Lactic Acid Reflex 1.4 mmol/L (0.7-2.0); Magnesium 1.9 mg/dL (1.6-2.3)
[2023-05-20 23:57] LABS: Lipase 53 U/L (23-300)
[2023-05-21] VITALS (18 sets, daily range): BP systolic 99–120; BP diastolic 50–81; PULSE 60–82; RESP 0–24; TEMP 36.3–37.8; O2SAT 90–100; BMI 23.5
--- NOTE | 2023-05-21 | ECHO_ITS ---
Patient Info Name: Fara Valencia Age: 68 years : 1955 Gender: Female Ht: 67 in Wt: 158 lbs BSA: 1.85 m2 HR: 82 bpm BP: 111 / 62 mmHg Heart Rhythm: Sinus Rhythm Technical Quality: Fair Exam Date: 05/21/2023 3:07 PM Exam Location: Echo Lab Patient Status: Inpatient Admit Date: 05/21/2023 Staff Ordering Physician: Nancy Wolfe PA-C Veterans Service Representative: Sophia Cordero RDCS Attending Provider: Yaa Tineo DO Referring Physician: Aiden WARD; Exam Type: CA echo doppler color flow Study Info Indications - pericardial effusion Complete two-dimensional, color flow and Doppler transthoracic echocardiogram is performed. Summary 1. Complete two-dimensional, color flow and Doppler transthoracic echocardiogram is performed. 2. Normal left and right ventricular size and systolic function. 3. Mildly sclerotic aortic valve with good leaflet excursion. 4. Small amount of tricuspid insufficiency velocity suggests at least moderately elevated pulmonary artery pressure. 5. Small circumferential pericardial effusion. Left Ventricle Left ventricular chamber dimension is normal. Left ventricular systolic function is normal, estimated at 65-70%. The left ventricular diastolic function is grade I diastolic dysfunction. Right Ventricle Right ventricular chamber dimension is normal. Left Atria Left atrial chamber dimension is mildly enlarged. Right Atria Right atrial chamber dimension is mildly enlarged. Aortic Valve The aortic valve is trileaflet. There is mild aortic valve sclerosis. Pulmonic Valve The pulmonic valve is not well visualized. Mitral Valve The mitral valve has normal leaflets. Tricuspid Valve The tricuspid valve leaflets are normal. There is mild tricuspid valve regurgitation. Moderate pulmonary hypertension, estimated pulmonary arterial systolic pressure is 65 mmHg. Pericardium/Pleural There is small circumferential pericardial effusion. Aorta The aortic root size at the sinus of Valsalva is normal. Left Ventricular Outflow Tract Name Value Normal LVOT 2D LVOT Diameter 2.2 cm LVOT Doppler LVOT Peak Gradient 8 mmHg LVOT Mean Gradient 4 mmHg LVOT VTI 23 cm LVOT VTI/AV VTI Ratio 0.6 LVOT Stroke Volume 91 ml LVOT CO 7.2 l/min LVOT CI 3.9 l/min/m2 Pulmonic Valve Name Value Normal RVOT Doppler RVOT Peak Gradient 2 mmHg PV Doppler PV Peak Gradient 4 mmHg Mitral Valve Name Value Normal MV Doppler
[2023-05-21 00:02] LABS: Acetaminophen < 10 ug/mL (10-30); Salicylate < 1.0 mg/dL (2-20)
[2023-05-21 00:04] LABS: Troponin I 0.034 ng/mL (0.000-0.034)
[2023-05-21] MEDS: SODIUM CHLORIDE 0.9% IV 1,000 ML 999 ML IV CONT ×2 (00:10)
[2023-05-21] MEDS: POTASSIUM CHLORIDE 20 MEQ PACKET (FOR LIQUID) 40 MEQ PO (00:14)
[2023-05-21 00:35] LABS: CRP 22.7 mg/dL (<1.0)
[2023-05-21 00:47] LABS: D Dimer 3.26 ug/mL (<0.48)
[2023-05-21 00:52] LABS: Influenza A QL RT-PCR Negative (Negative); Influenza B QL RT-PCR Negative (Negative); RSV RNA, RT-PCR Negative (Negative); SARS-CoV-2 RNA PCR Negative (Negative)
[2023-05-21] MEDS: SODIUM CHLORIDE 0.9% IV 1,000 ML 125 ML IV CONT ×3 (04:51→23:21)
--- NOTE | 2023-05-21 05:00 | ADMGEN ---
This patient, Fara Valencia, was admitted to IMU Room 214-01 at 0350. Patient/family oriented to hospital policies and general routines including ID bracelet, bed and alarms, visiting hours, pain management, procedures, bathroom and other care routines, personal items, smoking policy, room service/diet, and visiting hours. Information on how to activate the Rapid Response Team has been discussed. Patient/Family are encouraged to report perceived risks to care and to ask questions if they do not understand what they are told or what they should do.
[2023-05-21 09:58] LABS: Basophils Absolute Auto 0.1 K/mm3 (0.0-0.1); Basophils Percent Auto 0.3 % (0.2-1.2); Eosinophils Absolute Auto 0.1 K/mm3 (0-0.3); Eosinophils Percent Auto 0.6 % (0-4.4); Hematocrit 29.3 % (37.0-47.0); Hemoglobin 9.1 g/dL (12.0-15.0); Immature Granulocyte Absolute 0.16 K/mm3 (0.00-0.031); Immature Granulocyte Percent A 0.9 % (0-0.5); Lymphocytes Absolute Auto 0.91 K/mm3 (0.9-3.2); Lymphocytes Percent Auto 5.2 % (18.3-44.2); Mean Corpuscular HGB Conc 31.1 g/dl (32-36); Mean Corpuscular Hemoglobin 28.4 pg (26-34); Mean Corpuscular Volume 91.6 fl (80-100); Mean Platelet Volume 9.8 fl (7.4-10.4); Monocytes Absolute Auto 1.1 K/mm3 (0.1-0.6); Neutrophils Absolute Auto 15.1 K/mm3 (1.3-6.7); Platelet Count Result 277 k/mm3 (150-375); Red Cell Distribution Width 14.2 % (11.5-14.5); White Blood Count 17.4 K/mm3 (4.5-10.0)
[2023-05-21 10:10] LABS: Alanine Aminotransferase 50 U/L (6-35); Albumin Level 2.5 g/dL (3.5-5.1); Alkaline Phosphatase 96 U/L (38-126); Anion Gap 6 mmol/L (8-16); Aspartate Amino Transferase 58 U/L (14-36); Bilirubin,Total 0.4 mg/dL (0.2-1.3); Blood Urea Nitrogen 28 mg/dL (7-17); Calcium 8.1 mg/dL (8.4-10.2); Carbon Dioxide 22 mmol/L (22-30); Chloride 100 mmol/L (98-107); Estimated CRCL calculation 30 ml/min; Estimated Glomerular Filt Rate 32; Glucose 100 mg/dL (65-110); Potassium 3.4 mmol/L (3.4-5.0); Sodium 128 mmol/L (137-145)
[2023-05-21] MEDS: DOXAZOSIN MESYLATE 4 MG TABLET 8 MG PO (10:23)
[2023-05-21] MEDS: lisinopriL 20 MG TABLET PO (10:23)
[2023-05-21] MEDS: PANTOPRAZOLE 40 MG TABLET PO (10:24)
[2023-05-21] MEDS: ALPRAZolam (*CRX) 0.5 MG TABLET PO (10:24)
[2023-05-21] MEDS: MORPHINE SULFATE (*CRX) 30 MG TABCR PO ×2 (10:24→21:03)
[2023-05-21] MEDS: ASPIRIN 81 MG ENTERIC TABLET PO (10:24)
--- NOTE | 2023-05-21 12:26 | PM.IMHP ---
H&P: HPI History of Present Illness Date/Time: 05/21/23 12:26 Chief Complaint: Shortness of breath, weakness Narrative: This is a 68-year-old female with a past medical history of COPD, hypertension, history of hydrocephalus with shunt placement and chronic pain on morphine that presented to ED on 05/21/2023 due to increasing shortness of breath and weakness. Patient had been experiencing her symptoms for approximately 8 days. She had recently been around other sick members but states they tested negative for both COVID a and influenza. Patient tested negative for flu, RSV and COVID here in the hospital. Patient states that she was having a productive cough with yellow-green sputum. She had been using her inhalers more frequently without relief. Patient also states that she has had some urinary frequency as well as dysuria. She was unsure if she had a fever while at home. Patient is poor historian and having difficulty keeping awake. On presentation she was found to have white blood cell count of 22.9, sodium of 125, potassium 3, BUN and creatinine 32/1.8, elevated CRP elevated at 22.7. Patient's urine suspicious for infection with 3+ leukocyte esterase, 11-20 rbc's, greater than 100 wbc's and 4+ bacteria. CT of the chest abdomen pelvis revealing moderate emphysema, small to moderate pericardial effusion and no significant abnormality in the abdomen or pelvis. Patient does have pretty significant expiratory wheezing on exam and likely experiencing COPD exacerbation due to recent viral syndrome exposure. Patient admitted for treatment of UTI and COPD exacerbation. [facility] Past Medical History Medical History (Updated 05/21/23 @ 12:41 by Nancy Wolfe PA-C) Anxiety Chronic pain Chronic, continuous use of opioids 30 mg morphine x 2 years Degenerative arthritis of knee, bilateral Effusion of knee joint right Emphysema lung Hydrocephalus as child Hypertension Left knee DJD Left knee pain Mass of right upper extremity Rheumatoid arthritis Right knee DJD Rupture of proximal biceps tendon Surgical History Surgical History (Updated 05/21/23 @ 12:33 by Nancy Wolfe PA-C) H/O left knee surgery History of surgery on wrist ORIF 07/15/22 S/P ventricular shunt placement Family History Family History Unknown Arthritis Social History Social History Smoking packs per day: 1 Smoking cigarettes per day: 20.0 Years smoked: 38 Smoking pack-years: 38.00 Smoking status: Former smoker Tobacco type: cigarettes Smoking end date: 04/05/18 Alcohol intake: never Substance use: never Do You Feel Safe in your Home?: Yes Lack of Transportation: No Lack of Food: Never True Current Housing: I Have Housing Concerned About Future Housing: No Difficulty Paying Gas/Electric Bills: No Difficulty Paying for Meds: No Currently Unemployed: No Education: Associate Degree Difficulty w/ Childcare or Family Care: No Living arrangements: with family Occupation/Education: occupation 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 Gender identity (if verbalized by the patient): Female Spiritual care concerns: Yes Meds Home Medications and Allergies Home Medications Medication Instructions Recorded Confirmed Type alprazolam 0.5 mg tablet 1 tablet PO BID PRN Anxiety 10/20/21 05/21/23 History nebivolol 20 mg tablet 1 tablet PO QNOON 10/20/21 05/21/23 History doxazosin 4 mg tablet 8 mg PO DAILY 07/14/22 05/21/23 History lisinopril 20 mg tablet 20 mg PO DAILY 07/14/22 05/21/23 History morphine 30 mg tablet,extended 30 mg PO Q12H 07/14/22 05/21/23 History release albuterol sulfate 90 mcg/actuation 2 puff inhalation QID PRN 02/17/23 05/21/23 History aerosol inhaler Shortness Of Breath multivitamin with minerals-folic 1 tablet PO DAILY 02/17/23 05/21/23 History a
[2023-05-21] MEDS: methylPREDNISolone SOD SUCC 125 MG VIAL IV PUSH (13:16)
[2023-05-21] MEDS: AZITHROMYCIN 250 MG TABLET 500 MG PO (13:16)
[2023-05-21] MEDS: guaiFENesin/DEXTROMETHORPHAN 10 ML UDC PO (13:16)
[2023-05-21] MEDS: IPRATROPIUM 0.5 MG/ALBUTEROL SULFATE 2.5 MG AMPUL.NEB 3 ML INHALATION ×2 (13:51→20:09)
[2023-05-21] MEDS: methylPREDNISolone SOD SUCC 125 MG VIAL 60 MG IV PUSH (21:03)
[2023-05-21] MEDS: guaiFENesin 600 MG/DEXTROMETHORPHAN 30 MG SR TAB 12 HR 2 TAB PO (21:08)
[2023-05-22] VITALS (19 sets, daily range): BP systolic 113–152; BP diastolic 64–93; PULSE 64–91; RESP 14–20; TEMP 36.2–36.8; O2SAT 86–99
[2023-05-22] MEDS: IPRATROPIUM 0.5 MG/ALBUTEROL SULFATE 2.5 MG AMPUL.NEB 3 ML INHALATION ×4 (02:51→22:54)
[2023-05-22] MEDS: methylPREDNISolone SOD SUCC 125 MG VIAL 60 MG IV PUSH ×3 (05:25→21:22)
[2023-05-22] MEDS: lisinopriL 20 MG TABLET PO (09:31)
[2023-05-22] MEDS: DOXAZOSIN MESYLATE 4 MG TABLET 8 MG PO (09:31)
[2023-05-22] MEDS: guaiFENesin 600 MG/DEXTROMETHORPHAN 30 MG SR TAB 12 HR 2 TAB PO ×2 (09:31→21:22)
[2023-05-22] MEDS: ASPIRIN 81 MG ENTERIC TABLET PO (09:31)
[2023-05-22] MEDS: AZITHROMYCIN 250 MG TABLET PO (09:32)
[2023-05-22] MEDS: ENOXAPARIN 30 MG/0.3 ML SYRINGE SUB-Q (09:32)
[2023-05-22] MEDS: MORPHINE SULFATE (*CRX) 30 MG TABCR PO ×2 (09:32→21:22)
[2023-05-22] MEDS: PANTOPRAZOLE 40 MG TABLET PO (09:32)
--- NOTE | 2023-05-22 12:31 | PC.NURSE ---
This patient, Fara Valencia, was transferred to [address] [place] [address] on 05/22/23 at 1231. Personal belongings sent with patient. Report given to Judy. Appropriate documentation sent with patient.
--- NOTE | 2023-05-22 13:50 | PC.NURSE ---
This patient, Fara Valencia, was received from [IMU [id number]] on 05/22/23 at 1230. Patient/family oriented to unit policies and routines.
--- NOTE | 2023-05-22 14:21 | PM.IMPN ---
Progress Note: A&P Assessment and Plan (1) Acute UTI: Code(s): N39.0 - Urinary tract infection, site not specified Status: Acute Assessment and Plan: Patient's urine suspicious for infection with 3+ leukocyte esterase, 11-20 rbc's, greater than 100 wbc's and 4+ bacteria. Patient started on empiric antibiotic therapy of Rocephin. Urine culture positive for E coli. Blood culture no growth today. No previous urine culture for comparison. Adjust antibiotic therapy to culture results. (2) COPD exacerbation: Code(s): J44.1 - Chronic obstructive pulmonary disease with (acute) exacerbation Status: Acute Assessment and Plan: CT of the chest abdomen pelvis showing moderate emphysema. Patient experiencing shortness of breath and difficulty completing sentences as well as audible expiratory wheezing. Start patient on IV Solu-Medrol. Azithromycin x5 days Scheduled nebulizer treatments ordered. Antipertussis medication P.r.n. Not requiring any oxygen supplementation at this time (3) Pericardial effusion: Code(s): I31.39 - Other pericardial effusion (noninflammatory) Status: Acute Assessment and Plan: CT of the chest abdomen pelvis showing small to moderate pericardial effusion. Patient not actively having any chest pain at this time. Echocardiogram Showing small pericardial effusion, EF of 65-70% grade 1 diastolic dysfunction.. (4) Acute hypokalemia: Code(s): E87.6 - Hypokalemia Status: Resolved Assessment and Plan: Patient presented with a potassium of 3.0. Potassium replaced and now within normal limits. (5) Hypotension: Qualifiers: Hypotension type: unspecified hypotension type Qualified Code(s): I95.9 - Hypotension, unspecified Code(s): I95.9 - Hypotension, unspecified Status: Resolved Assessment and Plan: Patient received IV fluids in the ED and blood pressures improved. (6) Hypertension: Code(s): I10 - Essential (primary) hypertension Status: Chronic Assessment and Plan: Hold hypertensive medications at this time due to patient's hypotension. Subjective Date/time seen: 05/22/23 14:21 Interval history: Patient feeling much better today. Still requiring IV steroids and nebulizer treatments she is still wheezing but doing much better. She is more alert than yesterday. Downgraded to medical floor today. Urine sensitivities are pending. Continue treatment for COPD and UTI at this time. Exam Narrative: GENERAL: Comfortable, no acute distress, drowsy HENMT: moist mucous membranes EYES: EOM intact b/l NECK: no lymphadenopathy RESPIRATORY: Distant lung sounds, diffuse expiratory wheezing CARDIO: RRR GI: soft, nontender, bowel sounds present SKIN: no rashes EXTREMITIES: no edema, redness or tenderness Objective Data Vital Signs Vital Signs: Vital Signs - 24 hr 05/21/23 16:05 05/21/23 16:00 05/21/23 16:00 Temperature Pulse Rate 61 61 Respiratory Rate 18 Blood Pressure Pulse Oximetry 95 Oxygen Delivery Nasal Cannula Nasal Cannula Oxygen Flow Rate 2 2 05/21/23 18:00 05/21/23 16:00 05/21/23 19:18 Temperature 97.8 F 97.4 F L Pulse Rate 71 60 68 Respiratory Rate 20 18 Blood Pressure 111/77 120/81 Pulse Oximetry 97 100 Oxygen Delivery Oxygen Flow Rate 05/21/23 20:10 05/21/23 20:12 05/21/23 20:15 Temperature Pulse Rate 66 66 70 Respiratory Rate 18 18 Blood Pressure Pulse Oximetry 98 Oxygen Delivery Nasal Cannula Oxygen Flow Rate 2 05/21/23 20:00 05/21/23 20:00 05/21/23 22:00 Temperature Pulse Rate 67 76 Respiratory Rate Blood Pressure Pulse Oximetry 96 Oxygen Delivery Nasal Cannula Oxygen Flow Rate 2 05/21/23 23:48 05/22/23 00:00 05/22/23 00:00 Temperature 97.4 F L Pulse Rate 69 69 Respiratory Rate 20 Blood Pressure 11
[2023-05-23 03:26] VITALS: PULSE 78; RESP 18
[2023-05-23] MEDS: IPRATROPIUM 0.5 MG/ALBUTEROL SULFATE 2.5 MG AMPUL.NEB 3 ML INHALATION ×2 (03:26→08:37)
[2023-05-23 04:00] VITALS: BP 149/81; PULSE 57; RESP 18; TEMP 36.4; O2SAT 90
[2023-05-23 06:26] LABS: Hematocrit 29.7 % (37.0-47.0); Hemoglobin 9.1 g/dL (12.0-15.0); Mean Corpuscular HGB Conc 30.6 g/dl (32-36); Mean Corpuscular Hemoglobin 28.5 pg (26-34); Mean Corpuscular Volume 93.1 fl (80-100); Mean Platelet Volume 9.7 fl (7.4-10.4); Platelet Count Result 400 k/mm3 (150-375); Red Blood Count 3.19 M/mm3 (4.2-5.4); Red Cell Distribution Width 14.2 % (11.5-14.5); White Blood Count 20.1 K/mm3 (4.5-10.0)
[2023-05-23 06:34] LABS: Anion Gap 6 mmol/L (8-16); Blood Urea Nitrogen 24 mg/dL (7-17); Calcium 9.5 mg/dL (8.4-10.2); Carbon Dioxide 25 mmol/L (22-30); Chloride 105 mmol/L (98-107); Estimated CRCL calculation 43 ml/min; Estimated Glomerular Filt Rate 50; Glucose 148 mg/dL (65-110); Potassium 3.6 mmol/L (3.4-5.0); Sodium 136 mmol/L (137-145)
[2023-05-23] MEDS: methylPREDNISolone SOD SUCC 125 MG VIAL 60 MG IV PUSH (07:05)
[2023-05-23 08:39] VITALS: PULSE 77; RESP 20; O2SAT 92
[2023-05-23 08:46] VITALS: PULSE 78; RESP 20
[2023-05-23] MEDS: guaiFENesin 600 MG/DEXTROMETHORPHAN 30 MG SR TAB 12 HR 2 TAB PO (09:54)
[2023-05-23] MEDS: AMOXICILLIN/CLAVULANATE K 875-125 MG TAB 1 TABLET PO (09:54)
[2023-05-23] MEDS: PANTOPRAZOLE 40 MG TABLET PO (09:54)
[2023-05-23] MEDS: MORPHINE SULFATE (*CRX) 30 MG TABCR PO (09:54)
[2023-05-23] MEDS: ASPIRIN 81 MG ENTERIC TABLET PO (09:54)
[2023-05-23] MEDS: DOXAZOSIN MESYLATE 4 MG TABLET 8 MG PO (09:55)
[2023-05-23] MEDS: AZITHROMYCIN 250 MG TABLET PO (09:55)
[2023-05-23] MEDS: lisinopriL 20 MG TABLET PO (09:55)
[2023-05-23] MEDS: ENOXAPARIN 30 MG/0.3 ML SYRINGE SUB-Q (09:55)
--- NOTE | 2023-05-23 12:27 | PM.DS ---
DS: Admitting Diagnosis Discharge Date 05/23/23 Admitting Diagnosis UTI, COPD exacerbation DS: Discharge Diagnosis Discharge Diagnosis (1) Acute UTI: Code(s): N39.0 - Urinary tract infection, site not specified Status: Acute (2) COPD exacerbation: Code(s): J44.1 - Chronic obstructive pulmonary disease with (acute) exacerbation Status: Acute (3) Pericardial effusion: Code(s): I31.39 - Other pericardial effusion (noninflammatory) Status: Acute (4) Acute hypokalemia: Code(s): E87.6 - Hypokalemia Status: Resolved (5) Hypotension: Qualifiers: Hypotension type: unspecified hypotension type Qualified Code(s): I95.9 - Hypotension, unspecified Code(s): I95.9 - Hypotension, unspecified Status: Resolved (6) Hypertension: Code(s): I10 - Essential (primary) hypertension Status: Chronic DS: Summary Hospital Course Hospital Course: This is a 68-year-old female with a past medical history of COPD, hypertension, history of hydrocephalus with shunt placement and chronic pain on morphine that presented to ED on 05/21/2023 due to increasing shortness of breath and weakness.? Patient had been experiencing her symptoms for approximately 8 days. She had recently been around other sick members but states they tested negative for both COVID a and influenza.? Patient tested negative for flu, RSV and COVID here in the hospital.? Patient states that she was having a productive cough with yellow-green sputum.? She had been using her inhalers more frequently without relief.? Patient also states that she has had some urinary frequency as well as dysuria.? She was unsure if she had a fever while at home.? Patient is poor historian and having difficulty keeping awake. On presentation she was found to have white blood cell count of 22.9, sodium of 125, potassium 3, BUN and creatinine 32/1.8, elevated CRP elevated at 22.7.? Patient's urine suspicious for infection with 3+ leukocyte esterase, 11-20 rbc's, greater than 100 wbc's and 4+ bacteria. CT of the chest abdomen pelvis revealing moderate emphysema, small to moderate pericardial effusion and no significant abnormality in the abdomen or pelvis.? Echocardiogram was ordered on the patient due to pericardial effusion and it was found the patient had a small circumferential pericardial effusion. Patient was treated for COPD exacerbation with azithromycin and steroids. patient's respiratory status improved with COPD exacerbation treatment. Her urine came back positive for E col pansensitive and was transitioned to Augmentin. Patient's status improved. Last vital signs p.r.n. she is medically clear for discharge at this time. Time Spent with Patient Time attestation: Total time spent providing and/or coordinating discharge services: Exam Narrative: GENERAL: Comfortable, no acute distress HENMT: moist mucous membranes EYES: EOM intact b/l NECK: no lymphadenopathy RESPIRATORY: clear to auscultation CARDIO: RRR GI: soft, nontender, bowel sounds present SKIN: no rashes EXTREMITIES: no edema, redness or tenderness DS: Data Data Completed and Pending Labs on day of discharge: Labs from last 24 hours 05/23/23 05:49 WBC 20.1 H RBC 3.19 L Hgb 9.1 L Hct 29.7 L MCV 93.1 MCH 28.5 MCHC 30.6 L RDW 14.2 Plt Count 400 H MPV 9.7 Sodium 136 L Potassium 3.6 Chloride 105 Carbon Dioxide 25 Anion Gap 6 L BUN 24 H Creatinine 1.10 H Estim Creat Clear Calc 43 Estimated GFR 50 L Glucose 148 H Calcium 9.5 Preliminary micro results at discharge 05/21/23 00:06 Blood Culture - Preliminary Blood 05/21/23 00:06 Blood Culture - Preliminary Blood Discharge Plan Discharge Attending physician on discharge: Torres Garvey Discharging Clinician: Nancy Wolfe Patient Disposition: Home, Self-Care Activity: as tolerated Diet: regular Discharge Instructions: Medi
== END 2023-05-23 13:55 | disposition home or self-care (01) | DRG 191 ==
LOC: ANHED 05-21 01:02 → ANHIMU 05-21 03:21 → ANH3MEDSUR 05-22 12:43
PROVIDERS: Admitting Provider Internal Medicine; Emergency Provider Student in an Organized Health Care Education/Training Program; Visit Provider Internal Medicine Critical Care Medicine
DX: J44.1 Chronic obstructive pulmonary disease with (acute) exacerbation (principal); I31.39 Other pericardial effusion (noninflammatory); N39.0 Urinary tract infection, site not specified; B96.20 Unspecified Escherichia coli [E. coli] as the cause of diseases classified elsewhere; Z20.822 Contact with and (suspected) exposure to COVID-19; I10 Essential (primary) hypertension; M06.9 Rheumatoid arthritis, unspecified; M19.90 Unspecified osteoarthritis, unspecified site; E87.6 Hypokalemia; E86.0 Dehydration; I95.9 Hypotension, unspecified; Z87.891 Personal history of nicotine dependence
CPT/HCPCS: 36415; 70250; 70450; 71045; 71250; 74018; 74176; 80048; 80053; 80307; 81001; 81025; 83605; 83690; 83735; 84443; 84484; 85025; 85027; 85380; 85610; 85730; 86140; 86850; 86900; 86901; 87040; 87086; 87186; 87637; 93005; 93306; 94640; 96361; 96365; 96375; 97161; 97165; 99285; A9270; G0378; J0696; J1650; J2930; J7030

== ENCOUNTER 2024-04-17 11:17 | Emergency (ER) | payer MEDICARE, SELFPAY ==
[2024-04-17] VITALS (50 sets, daily range): BP systolic 75–123; BP diastolic 48–79; PULSE 73–97; RESP 13–23; TEMP 36.2; O2SAT 90–100
--- NOTE | ~2024-04-17 | XR_ITS ---
EXAMINATION: XR chest 2V DATE: 04/17/2024 12:45 INDICATION: Chest pain. Shortness of breath. TECHNIQUE: Frontal and lateral views of the chest were obtained on 3 radiographs. COMPARISON: Chest single view 05/20/2023, chest CT 05/20/2023 FINDINGS: There is a mass in right midlung zone. There is mild atelectasis at left lung base. No pleu ral effusion or pneumothorax. The heart size is normal. IMPRESSION: 1. Mass in right midlung zone, which may be pneumonia. Noncontrast chest CT is recommended to exclude malignancy. Reviewed, dictated and finalized at location A. [employer]
--- NOTE | ~2024-04-17 | CT_ITS ---
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 Pulmonary embolus suspected clinically TECHNIQUE: Computed tomographic angiography (CTA) of the chest was performed with 100 mL Omnipaque-35 0 intravenous contrast. The dose-length product was 201.84 mGy-cm. Maximum intensity projection 3D-re constructions of the aorta and other arteries were constructed by the technologist on a separate work station. COMPARISON: Reference is made to CT examination of the chest dated 05/20/2023. Reference is also made to plain film evaluation of the chest, performed the same day. FINDINGS: No filling defect is identified within the main or proximal pulmonary arteries. The main pulmonary artery is enlarged, suggesting pulmonary hypertension. Intrapulmonary lymph node measuring 6 mm in short axis dimension is redemonstrated within the right m iddle lobe, increased in size since 05/20/2023. Interval development of a focus of soft tissue attenuation between the right middle and right lower l obes. Blood vessels course through this abnormality, rather than traversing around the abnormality. Severe panlobular emphysematous disease is also noted, as is a small right-sided pleural effusion. The thoracic aorta is nonaneurysmal. No dissection is appreciated Within the upper abdomen: The bilateral adrenal glands are unremarkable. Gallbladder is decompressed, and otherwise unremarkable. IMPRESSION: Panlobular emphysematous disease with interval development of a mass of soft tissue attenuation withi n the right hemithorax, with surrounding groundglass opacification. The rapidity of growth along with the leukocytosis suggest infectious etiology, rather than malignancy. Follow-up to resolution is recommended, as a malignancy may have a similar appearance No pulmonary embolus. No aortic dissection. Reviewed, dictated and finalized at location A. [facility]ON[facility]ALTH NURSE IMPRESSION: Panlobular emphysematous disease with interval development of a mass of soft ti ssue attenuation within the right hemithorax, with surrounding groundglass opac ification. The rapidity of growth along with the leukocytosis suggest infectiou s etiology, rather than malignancy. Follow-up to resolution is recommended, as a malignancy may have a similar appe arance No pulmonary embolus. No aortic dissection.
--- NOTE | 2024-04-17 11:31 | ECG_ITS ---
Test Date: 2024-04-17 11:36:24 Measurements Intervals [place] Rate: 92 P: 44 KS: 128 QRS: -10 QRSD: 82 T: 61 QT: 347 QTc: 431 Interpretive Statements SINUS RHYTHM LOW QRS VOLTAGE IN PRECORDIAL LEADS [QRS DEFLECTION < 1.0 mV IN CHEST LEADS] No previous ECG available for comparison Electronically Signed On 04-17-2024 13:05:44 [employer] by Mellissa Fermin M.D.
[2024-04-17 11:54] LABS: Basophils Absolute Auto 0.1 K/mm3 (0.0-0.1); Basophils Percent Auto 0.4 % (0.2-1.2); Eosinophils Absolute Auto 0.1 K/mm3 (0-0.3); Eosinophils Percent Auto 0.5 % (0-4.4); Hematocrit 35.5 % (37.0-47.0); Hemoglobin 11.2 g/dL (12.0-15.0); Immature Granulocyte Absolute 0.13 K/mm3 (0.00-0.031); Immature Granulocyte Percent A 0.7 % (0-0.5); Lymphocytes Absolute Auto 1.68 K/mm3 (0.9-3.2); Lymphocytes Percent Auto 9.4 % (18.3-44.2); Mean Corpuscular HGB Conc 31.5 g/dl (32-36); Mean Corpuscular Hemoglobin 28.9 pg (26-34); Mean Corpuscular Volume 91.7 fl (80-100); Mean Platelet Volume 8.8 fl (7.4-10.4); Monocytes Absolute Auto 1.5 K/mm3 (0.1-0.6); Monocytes Percent Auto 8.1 % (2.6-8.5); Neutrophils Absolute Auto 14.4 K/mm3 (1.3-6.7); Neutrophils Percent Auto 80.9 % (45.5-73.1); Platelet Count Result 457 k/mm3 (150-375); Red Blood Count 3.87 M/mm3 (4.2-5.4); Red Cell Distribution Width 13.2 % (11.5-14.5); White Blood Count 17.9 K/mm3 (4.5-10.0)
[2024-04-17 12:02] LABS: Alanine Aminotransferase 20 U/L (6-35); Albumin Level 3.8 g/dL (3.5-5.1); Alkaline Phosphatase 104 U/L (38-126); Anion Gap 8 mmol/L (4-12); Aspartate Amino Transferase 25 U/L (14-36); Bilirubin,Total 0.7 mg/dL (0.2-1.3); Blood Urea Nitrogen 18 mg/dL (7-17); Calcium 9.6 mg/dL (8.4-10.2); Carbon Dioxide 26 mmol/L (22-30); Chloride 100 mmol/L (98-107); Estimated CRCL calculation 50 ml/min; Estimated Glomerular Filt Rate > 60; Glucose 120 mg/dL (65-110); Lipase 53 U/L (23-300); Sodium 134 mmol/L (137-145)
[2024-04-17 12:05] LABS: INR 1.1; Prothrombin Time 14.6 Seconds (11.1-14.7)
[2024-04-17 12:06] LABS: Partial Thromboplastin Time 35.3 Seconds (22.3-36.8)
[2024-04-17 12:13] LABS: Troponin I < 0.012 ng/mL (0.000-0.034)
[2024-04-17 12:29] LABS: Influenza A QL RT-PCR Negative (Negative); Influenza B QL RT-PCR Negative (Negative); RSV RNA, RT-PCR Negative (Negative); SARS-CoV-2 RNA PCR Negative (Negative)
--- NOTE | 2024-04-17 14:27 | ED.NAVMDI ---
HPI - Nausea/Vomiting/Diarrhea General Chief complaint: Nausea/Vomiting/Diarrhea Stated complaint: I'm sick , N/D Time Seen by Provider: 04/17/24 13:34 Source: patient Mode of arrival: ambulatory Limitations: no limitations History of Present Illness HPI Narrative: Patient presents with multiple complaints stating I am sick. Symptoms have been going on for the past 2 weeks. She endorses nausea but no vomiting and has also been having diarrhea. She also started noticing some blood on the toilet paper after wiping recently. She has a history of COPD not on oxygen supplementation although on Treligy. She is a former smoker who quit in 2017. She had a colonoscopy approximately 6 years ago. She has had a productive cough but no fever. Her primary care physician Dr. Mercado prescribed Mucinex and fluids approximately 2 weeks ago patient was not seen in person for this prescription. For pain he has been taking Tylenol as well as the prescription hydrocodone she takes for chronic neck and back pain. She has developed a sore throat as well. She denies any abdominal pain. She has been short of breath over the last few days and experiencing myalgias. She has also developed right-sided chest pain particularly under her right breast. His pain is worse when she takes deep breath or when she coughs. Last oral intake was happy sandwich last night. Her pain is 7/10 severity. No prior abdominal surgeries. Her has been sick with similar symptoms at home. In regards to cardiac risk factors: She has a history of hypertension and is on medication for this. No history of hyperlipidemia, diabetes mellitus, or previous myocardial infarction/CVA. No family history of myocardial infarction. Worsened over although quit nearly 8 years ago. Related Data Home Medications ?Medication ?Instructions ?Recorded ?Confirmed ?Last Taken ?Type alprazolam 0.5 mg tablet 1 tablet PO BID PRN Anxiety 10/20/21 01/31/24 Unknown History nebivolol 20 mg tablet 1 tablet PO QNOON 10/20/21 01/31/24 Unknown History doxazosin 4 mg tablet 8 mg PO DAILY 07/14/22 01/31/24 Unknown History lisinopril 20 mg tablet 20 mg PO DAILY 07/14/22 01/31/24 Unknown History albuterol sulfate 90 mcg/actuation 2 puff inhalation QID PRN 02/17/23 01/31/24 Unknown History aerosol inhaler Shortness Of Breath multivitamin with minerals-folic 1 tablet PO DAILY 02/17/23 01/31/24 Unknown History acid 80 mcg chewable tablet (Centrum Adult 50 Plus) pantoprazole 40 mg tablet,delayed 40 mg PO DAILY 02/17/23 01/31/24 Unknown History release aspirin 81 mg tablet,delayed 81 mg PO DAILY 03/19/23 01/31/24 Unknown History release (Adult Low Dose Aspirin) dextromethorphan-guaifenesin ER 60 1 tablet PO BID 05/21/23 01/31/24 Unknown History mg-1,200 mg tab,extend release,12hr (Mucinex DM) Allergies Allergy/AdvReac Type Severity Reaction Status Date / Time No Known Allergies Allergy Verified 04/17/24 12:17 [facility] Past Medical History Medical History Chronic neck and back pain COPD (chronic obstructive pulmonary disease) Right knee pain Other fatigue Effusion, left knee Effusion of knee joint right 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, bilateral Chronic, continuous use of opioids 30 mg morphine x 2 years Hydrocephalus as child Emphysema lung Rupture of proximal biceps tendon Mass of right upper extremity Left knee pain Right knee DJD Chronic pain Anxiety Hypertension Rheumatoid arthritis Surgical History Surgical History History of colonoscopy approx 2018 S/P ventricular shunt placement H/O left knee surgery History of surgery on wrist ORIF 07/15/22 Family History Family History Unknown Arthritis Social History Social History Social History: Smoking packs per day: 1 Smoking cigarettes per day: 20.0 Years smoked: 38 Smoking pack-years: 38.00 Smoking status: Former smoker Tobacco type: cigarettes Smoking end date: 04/05/16 Alcohol intake: never Substance use: never Do You Feel Safe in your Home?: Yes Lack of Transportation: No Lack of Food: Never True Current Housing: I Have Housing Concerned About Future Housing: No Difficulty Paying Gas/Electric Bills: No Difficulty Paying for Meds: No Currently Unemployed: No Education: Associate Degree Difficulty w/ Childcare or Family Care: No Living arrangements: with family Additional living arrangements comments: Occupation/Education: occupation Additional occupation/education comments: 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 HEAD: Normocephalic, atraumatic. EYES: Non injected, non icteric ENT: Nares clear, no rhinorrhea or epistaxis. Moist mucous membranes. Posterior oropharynx erythematous but without tonsillar hypertrophy or exudate. Uvula midline. NECK: Supple. No lymphadenopathy. CHEST: Speaking in full sentences. No respiratory distress. Patient does have coarse breath sounds particularly on the right although good air movement throughout. Occasional cough during examination. HEART: Regular rate and rhythm. . ABDOMEN: Soft, nondistended. Rectal: Digital rectal exam performed. Mild erythema around the rectum but without appreciable hemorrhoids. No appreciable fissures or ulcerations. Normal rectal tone. FOBT/guiaic negative on bedside. EXTREMITIES: Normal range of motion. SKIN: Warm, dry, no rash. NEURO: No focal deficits. Alert and oriented x3. PSYCH: Normal mood and affect. Course Vital Signs Vital signs: Vital Signs Temperature 97.2 F L 04/17/24 11:22 Pulse Rate 97 04/17/24 11:22 Respiratory Rate 20 04/17/24 11:22 Blood Pressure 94/69 L 04/17/24 11:22 Pulse Oximetry 96 04/17/24 11:22 Oxygen Delivery Room Air 04/17/24 11:22 Temperature 97.2 F L 04/17/24 11:22 Pulse Rate 87 04/17/24 19:57 Respiratory Rate 17 04/17/24 19:57 Blood Pressure 96/65 L 04/17/24 19:57 Pulse Oximetry 100 04/17/24 19:57 Oxygen Delivery Room Air 04/17/24 15:00 MDM - Nausea/Vomiting/Diarrhea MDM Narrative Medical decision making narrative: Patient presents with multiple complaints including nausea, diarrhea, shortness of breath, sore throat and cough after which she has developed right-sided chest pain. In the emergency department they are afebrile with vital signs notable for hypotension 2 readings. Will give 1 L IV fluids in addition to ondansetron for nausea. Centor score -1; will not obtain strep testing. HEART SCORE History 2 highly suspicious 1 moderately suspicious 0 slightly suspicious History score [address] depression/elevation not due to LBBB, LVH, or digoxin [address] depression but LBBB, LVH, nonspecific repolarization changes 0 normal ECG score 0 Age 2 >/= 65 1 45-64 0 <45 Age score 2 Risk factors (HTN, hypercholesterolemia, DM, obesity with BMI >30, current smoker or cessation </=3mo), positive fam hx with parent or sibling with CVD before age 65, atherosclerotic disease (prior IN, PCI/CABG, CVA/TIA, or peripheral arterial disease) 2 >/= 3 risk factors or history of atherosclerotic dz 1 - 1-2 risk factors 0 no known risk factors Risk factor score 1 (HTN) Initial Troponin 2 >3 times normal limit 1 1-3 times normal limit 0 less than or equal to normal limit Troponin score 0 Total HEART Score 3. Repeat troponin is negative. Patient's chest pain sounds related to her frequent coughing rather than being intrinsically cardiac. For her blood noted on the TP after wiping, My differential diagnosis at this time is diverticulosis versus angiodysplasia versus Meckel's diverticulum. Colon cancer is also possible. Considered ischemic bowel or anal fissure. Possible IBD/infectious diarrhea. Possibly hemorrhoids. FOBT negative on exam however. Questionable mass seen on chest x-ray for which noncontrast CT is recommended. Will hold on ordering this to see if CTA is required based on D dimer. Patient has a leukocytosis, normocytic anemia, thrombocytosis. These were all seen previously on labs. Slight hyponatremia, this appears chronic and stable. Patient given DuoNeb given coarse lung sounds and history of COPD. CT scan does show emphysematous lungs but also findings in the right hemithorax that suggest infection such as pneumonia especially given leukocytosis, although malignancy also a consideration. CURB-65 score Confusion (No 0, Yes +1): 0 BUN >19mg/dl (No 0, Yes +1): 0 RR >/= 30 (No 0, Yes +1): 0 SBP <90mmHg or DBP </=60mmHg (No 0, Yes +1): 0 Age >/=65 (No 0, Yes +1) 1 Result = 1 points, low risk Can consider outpatient treatment. DRIP Score - predicts risk for CAP d/t drug-resistant pathogens Antibiotic use within 60 days (No 0, Yes +2): 0 middle or intermediate school principal care resident (No 0, Yes +2):0 Tube feeding (No 0, Yes +2)0 Prior drug-resistant pneumonia Dx within 1 year (No 0, Yes +2)0 Hospitalization within 60 days (No 0, Yes +1):0 Chronic pulmonary disease (No 0, Yes +1): 1 Poor functional status (No 0, Yes +1):0 H2 ibrahima or PPI within 14 days (No 0, Yes +1): 1 (pantoprazole) Active wound care at time of admission (No 0, Yes +1):0 MRSA colonization within 1 year (No 0, Yes +1):0 Total: 2 Outpatient score <4 will prescribe azithromycin. Patient given her 1st dose in the emergency department with the rest of the course prescribed. She is also prescribed medications for symptom management such as benzonatate as Cepacol lozenges in addition to additional ondansetron for nausea vomiting. Patient is provided work note for several days and at her request it is faxed to her place of employment, [employer] [employer], . Advised to return to the emergency department for new/worsening/unmanaged symptoms. 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 Differential Diagnosis Differential diagnosis: Likely food poisoning, gastroenteritis, clostridium difficile infection, drug-induced nausea and vomiting, dehydration and other (Urinary tract infection, pneumonia, acute viral syndrome, COPD exacerbation, considered ACS, pulmonary embolism) Lab Data Attestation: I reviewed the patient's lab results. 04/17/24 11:42 04/17/24 11:42 Labs: Lab Results 04/17/24 04/17/24 04/17/24 Range/Units 11:42 14:56 15:00 WBC 17.9 H (4.5-10.0) K/mm3 RBC 3.87 L (4.2-5.4) M/mm3 Hgb 11.2 L (12.0-15.0) g/dL Hct 35.5 L (37.0-47.0) % MCV 91.7 (80-100) fl MCH 28.9 (26-34) pg MCHC 31.5 L (32-36) g/dl RDW 13.2 (11.5-14.5) % Plt Count 457 H (150-375) k/mm3 MPV 8.8 (7.4-10.4) fl Immature Gran % (Auto) 0.7 H (0-0.5) % Neut % (Auto) 80.9 H (45.5-73.1) % Lymph % (Auto) 9.4 L (18.3-44.2) % [place] % (Auto) 8.1 (2.6-8.5) % Eos % (Auto) 0.5 (0-4.4) % Baso % (Auto) 0.4 (0.2-1.2) % Lymph # (Auto) 1.68 (0.9-3.2) K/mm3 Clare # (Auto) 1.5 H (0.1-0.6) K/mm3 Eos # (Auto) 0.1 (0-0.3) K/mm3 Baso # (Auto) 0.1 (0.0-0.1) K/mm3 Abs Immat Gran (auto) 0.13 H (0.00-0.031) K/mm3 Absolute Neuts (auto) 14.4 H (1.3-6.7) K/mm3 Absolute Nucleated RBC 0.000 (0.0-0.012) K/mm3 Nucleated RBC % 0.0 (0.0-0.2) % PT 14.6 (11.1-14.7) Seconds INR 1.1 APTT 35.3 (22.3-36.8) Seconds D-Dimer 1.69 H (<0.48) ug/mL Sodium 134 L (137-145) mmol/L Potassium 4.0 (3.4-5.0) mmol/L Chloride 100 (98-107) mmol/L Carbon Dioxide 26 (22-30) mmol/L Anion Gap 8 (4-12) mmol/L BUN 18 H (7-17) mg/dL Creatinine 0.91 (0.7-1.0) mg/dL Estim Creat Clear Calc 50 ml/min Estimated GFR > 60 (59 - ) Glucose 120 H (65-110) mg/dL Calcium 9.6 (8.4-10.2) mg/dL Magnesium 1.9 (1.6-2.3) mg/dL Total Bilirubin 0.7 (0.2-1.3) mg/dL AST 25 (14-36) U/L ALT 20 (6-35) U/L Alkaline Phosphatase 104 (38-126) U/L Troponin I < 0.012 < 0.012 (0.000-0.034) ng/mL Total Protein 8.0 (6.3-8.2) g/dL Albumin 3.8 (3.5-5.1) g/dL Lipase 53 (23-300) U/L Urine Color Yellow (Yellow) Urine Appearance Cloudy H (Clear) Urine pH 6.5 (5.0-9.0) Ur Specific [place] 1.008 (1.001-1.035) Urine Protein Negative (Negative) mg/dL Urine Glucose (UA) Negative (Negative) mg/dL Urine Ketones Negative (Negative) mg/dL Ur Blood (Man) Negative (Negative) Urine Nitrate Negative (Negative) Urine Bilirubin Negative (Negative) Urine Urobilinogen 0.2 (<2.0) mg/dL Leukocyte Esterase Rfl Negative (Negative) YINA/UL Urine RBC 0-2 (0-2) /hpf Urine WBC 0-5 (0-3) /hpf Ur Squamous Epith Cells Occasional (Few) /hpf Urine Bacteria Rare /hpf Urine Casts 0-2 Influenza A (RT-PCR) Negative (Negative) Influenza B (RT-PCR) Negative (Negative) Ur L.pneumophila Ag Pending RSV (RT-PCR) Negative (Negative) SARS-CoV-2 RNA (RT-PCR) Negative (Negative) 04/17/24 Range/Units 17:45 WBC (4.5-10.0) K/mm3 RBC (4.2-5.4) M/mm3 Hgb (12.0-15.0) g/dL Hct (37.0-47.0) % MCV (80-100) fl MCH (26-34) pg MCHC (32-36) g/dl RDW (11.5-14.5) % Plt Count (150-375) k/mm3 MPV (7.4-10.4) fl Immature Gran % (Auto) (0-0.5) % Neut % (Auto) (45.5-73.1) % Lymph % (Auto) (18.3-44.2) % Clare % (Auto) (2.6-8.5) % Eos % (Auto) (0-4.4) % Baso % (Auto) (0.2-1.2) % Lymph # (Auto) (0.9-3.2) K/mm3 [place] # (Auto) (0.1-0.6) K/mm3 Eos # (Auto) (0-0.3) K/mm3 Baso # (Auto) (0.0-0.1) K/mm3 Abs Immat Gran (auto) (0.00-0.031) K/mm3 Absolute Neuts (auto) (1.3-6.7) K/mm3 Absolute Nucleated RBC (0.0-0.012) K/mm3 Nucleated RBC % (0.0-0.2) % PT (11.1-14.7) Seconds INR APTT (22.3-36.8) Seconds D-Dimer (<0.48) ug/mL Sodium (137-145) mmol/L Potassium (3.4-5.0) mmol/L Chloride (98-107) mmol/L Carbon Dioxide (22-30) mmol/L Anion Gap (4-12) mmol/L BUN (7-17) mg/dL Creatinine (0.7-1.0) mg/dL Estim Creat Clear Calc ml/min Estimated GFR (59 - ) Glucose (65-110) mg/dL Calcium (8.4-10.2) mg/dL Magnesium (1.6-2.3) mg/dL Total Bilirubin (0.2-1.3) mg/dL AST (14-36) U/L ALT (6-35) U/L Alkaline Phosphatase (38-126) U/L Troponin I < 0.012 (0.000-0.034) ng/mL Total Protein (6.3-8.2) g/dL Albumin (3.5-5.1) g/dL Lipase (23-300) U/L Urine Color (Yellow) Urine Appearance (Clear) Urine pH (5.0-9.0) Ur Specific [place] (1.001-1.035) Urine Protein (Negative) mg/dL Urine Glucose (UA) (Negative) mg/dL Urine Ketones (Negative) mg/dL Ur Blood (Man) (Negative) Urine Nitrate (Negative) Urine Bilirubin (Negative) Urine Urobilinogen (<2.0) mg/dL Leukocyte Esterase Rfl (Negative) YINA/UL Urine RBC (0-2) /hpf Urine WBC (0-3) /hpf Ur Squamous Epith Cells (Few) /hpf Urine Bacteria /hpf Urine Casts Influenza A (RT-PCR) (Negative) Influenza B (RT-PCR) (Negative) Ur L.pneumophila Ag RSV (RT-PCR) (Negative) SARS-CoV-2 RNA (RT-PCR) (Negative) Imaging Data Radiologist's impression: Impressions Chest X-Ray 04/17/24 12:47 IMPRESSION: 1. Mass in right midlung zone, which may be pneumonia. Noncontrast chest CT is recommended to exclude malignancy. Chest CTA 04/17/24 18:24 IMPRESSION: Panlobular emphysematous disease with interval development of a mass of soft tissue attenuation within the right hemithorax, with surrounding groundglass opacification. The rapidity of growth along with the leukocytosis suggest infectious etiology, rather than malignancy. Follow-up to resolution is recommended, as a malignancy may have a similar appearance No pulmonary embolus. No aortic dissection. ECG Data EKG #1: Attestation: I personally reviewed and interpreted this ECG as follows: ECG completion date: 04/17/24 ECG completion time: 11:36 Interpretation: Normal sinus rhythm at a rate of 92 beats per minute. MI interval 128. QRS 82. QT/QTC 347/397. Good R-wave progression across the precordial leads. No T-wave inversions. Discharge Plan Discharge Clinical Impression: Leukocytosis, Normocytic anemia, Thrombocytosis, Chronic hyponatremia, Chest pain, Nausea, Diarrhea, Emphysema/COPD, Pneumonia Patient Disposition: Home, Self-Care Condition: Stable Instructions: Antibiotic Form, Chest Pain (DC), Hyponatremia (ED), COPD (Chronic Obstructive Pulmonary Disease) (DC), Acute Nausea and Vomiting (DC), Acute Diarrhea (ED), Leukocytosis (ED), Anemia (ED), Pneumonia (ED), Chronic Lung Disease and Infection Prevention (ED) Additional Instructions: Follow-up with your primary care physician Dr Mercado through [facility]. Your chest pain is likely related to the infection that you have (pneumonia), but if you need to follow-up and see a machine lead burner later the name of one is listed below. Return to the emergency department with any new or worsening or unmanaged symptoms. Rest and maintain your hydration. Take the rest of the course of your antibiotics as well as the other medications that have been prescribed to help with her symptoms. Even after you finish the antibiotics you may continue to experience symptoms; this is unfortunately normal/expected after pneumonia. The oral disintegrating tablets of Zofran/ondansetron can help if you continue to experience nausea and vomiting. Patient Language: Swedish Prescriptions: New azithromycin 250 mg tablet 250 mg PO DAILY 4 Days Qty: 4 0RF Rx Instructions: start on day 2 of therapy (04/18/24); already received first dose in ED 04/17 benzonatate 100 mg capsule 100 mg PO BID PRN (Reason: cough) Qty: 20 0RF Cepacol Sore Throat-Cough 5-7.5 mg lozenge 1 avery PO Q4H PRN (Reason: sore throat) Qty: 16 0RF ondansetron 4 mg tablet,disintegrating 4 mg PO Q8H PRN (Reason: nausea and vomiting) Qty: 7 0RF No Action alprazolam 0.5 mg tablet 1 tablet PO BID PRN (Reason: Anxiety) nebivolol 20 mg tablet 1 tablet PO QNOON doxazosin 4 mg tablet 8 mg PO DAILY lisinopril 20 mg tablet 20 mg PO DAILY albuterol sulfate 90 mcg/actuation HFA aerosol inhaler 2 puff INHALATION QID PRN (Reason: Shortness Of Breath) pantoprazole 40 mg tablet,delayed release (DR/EC) 40 mg PO DAILY Centrum Adult 50 Plus 80 mcg Tablet,Chewable 1 tablet PO DAILY aspirin [Adult Low Dose Aspirin] 81 mg Tablet,Delayed Release (Dr/Ec) 81 mg PO DAILY dextromethorphan-guaifenesin [Mucinex DM] 60-1,200 mg tablet extended release 12 hr 1 tablet PO BID Follow-up/Referrals: Blayne Mora MD [Physician] - (cardiology) UNKNOWN,DOCTOR [Primary Care Provider] - Stand Alone Forms: Work/School Release IP Time of Disposition: 19:22
[2024-04-17] MEDS: ONDANSETRON INJ 4 MG/2 ML VIAL IV PUSH (14:38)
[2024-04-17] MEDS: SODIUM CHLORIDE 0.9% IV 1,000 ML 999 ML IV CONT (14:38)
[2024-04-17] MEDS: IPRATROPIUM 0.5 MG/ALBUTEROL SULFATE 2.5 MG AMPUL.NEB 3 ML INHALATION (14:59)
[2024-04-17 15:14] LABS: Add Urine Microscopic? YES; Appearance Urine Cloudy (Clear); Bacteria Urine Rare /hpf; Bilirubin Urine Negative (Negative); Blood Urine Negative (Negative); Color Urine Yellow (Yellow); Glucose Urine UA Negative (Negative); Ketones Urine Negative (Negative); Leukocyte Esterase Ur Negative LEU/UL (Negative); Nitrate Urine Negative (Negative); Non Pathogenic Casts 0-2; Protein Urine Negative (Negative); RBC Urine 0-2 /hpf (0-2); Specific Grav Ur 1.008 (1.001-1.035); Squamous Epithelial Cell Urine Occasional /hpf (Few); Urobilinogen Urine 0.2 mg/dL (<2.0); WBC Urine 0-5 /hpf (0-3); pH Urine 6.5 (5.0-9.0)
[2024-04-17] MEDS: BENZONATATE 100 MG CAPSULE PO (15:14)
[2024-04-17] MEDS: guaiFENesin/DEXTROMETHORPHAN 10 ML UDC PO (15:14)
[2024-04-17 15:21] LABS: Magnesium 1.9 mg/dL (1.6-2.3)
[2024-04-17 15:27] LABS: D Dimer 1.69 ug/mL (<0.48)
[2024-04-17 15:33] LABS: Troponin I < 0.012 ng/mL (0.000-0.034)
[2024-04-17] MEDS: ACETAMINOPHEN 500 MG TABLET 1000 MG PO (17:08)
[2024-04-17 18:16] LABS: Troponin I < 0.012 ng/mL (0.000-0.034)
[2024-04-17] MEDS: HYDROcodone/acetaminophen (*CRX) 5-325 MG TABLET 1 TAB PO (18:23)
[2024-04-17] MEDS: AZITHROMYCIN 250 MG TABLET 500 MG PO (19:28)
[2024-04-17] MEDS: BENZOCAINE/MENTHOL (*BKC) 18 EA LOZENGE 1 LOZENGE PO (19:56)
[2024-04-21 02:34] LABS: Legionella pneumophila Ag Ur NOT DETECTED
== END 2024-04-17 19:59 | disposition home or self-care (01) ==
PROVIDERS: Emergency Medicine; Emergency Provider Student in an Organized Health Care Education/Training Program
DX: D72.829 Elevated white blood cell count, unspecified (principal); D64.9 Anemia, unspecified; D75.839 Thrombocytosis, unspecified; E87.1 Hypo-osmolality and hyponatremia; R07.9 Chest pain, unspecified; R19.7 Diarrhea, unspecified; J43.9 Emphysema, unspecified; J18.9 Pneumonia, unspecified organism; Z87.891 Personal history of nicotine dependence; I10 Essential (primary) hypertension; J44.9 Chronic obstructive pulmonary disease, unspecified; Z79.82 Long term (current) use of aspirin; M06.9 Rheumatoid arthritis, unspecified; Z20.822 Contact with and (suspected) exposure to COVID-19
CPT/HCPCS: 36415; 71046; 71275; 80053; 81001; 83690; 83735; 84484; 85025; 85380; 85610; 85730; 87449; 87637; 93005; 94640; 96361; 96374; 96375; 99284; A9270; J2405; J7030; Q9967

== ENCOUNTER 2024-05-19 08:53 | Outpatient (CLI) | payer MEDICARE, SELFPAY ==
--- NOTE | ~2024-05-19 | CT_ITS ---
Clinical indication:Right lung mass COMPARISON:04/17/2024 TECHNIQUE: Multiple contiguous axial images of the chest were performed without the administration of intravenous contrast. FINDINGS: LUNG:Interval decrease in size of the mass within the right middle lobe, now demonstrating cavitation for which a possible fungal etiology is suspected. The remainder of the lungs are clear. MEDIASTINUM:No pathologically enlarged or morphologically suspicious lymph nodes within the mediastin um. HEART:The heart is of normal size, without pericardial effusion. SOFT TISSUES OF THE CHEST: Unremarkable BONES OF THE CHEST: No lytic or blastic lesions identified IMPRESSION: Interval decrease in size of the abnormality seen within the right middle lobe on previous study, now demonstrating a central cavity, possibly fungal in origin. Reviewed, dictated and finalized at location A. CERATOR IMPRESSION: Interval decrease in size of the abnormality seen within the right middle lobe on previous study, now demonstrating a central cavity, possibly fungal in origi n.
--- OUTSIDE RECORDS SUMMARY | 2024-05-19 09:02 | XMS_ITS | Clinical Summary ---
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 Active Active Problems Problem Noted Date Diagnosed Date Arthritis of knee 11/04/2023 Primary osteoarthritis of right knee 11/04/2023 Labral tear of long head of biceps tendon, right, initial encounter 08/14/2020 Social History Tobacco Use Types Packs/Day Years Used Date Smoking Tobacco: Never Alcohol Use Standard Drinks/Week Comments Never 0 (1 standard drink = 0.6 oz pur e alcohol) Feeling Safe Answer Date Recorded Are you in a relationship wi th someone who hurts you emotionally and/or physically? No 11/04/2023 Comments No Sex and Gender Information Value Date Recorded Sex Assigned at Not on file Legal Sex Female 9:47 PM CDT Gender Identity Not on file Sexual Orientation Not on file Last Filed Vital Signs Vital Sign Reading Time Taken Comments Blood Pressure 150/93 11/04/2023 11:10 PM CDT Pulse 87 11/04/2023 11:10 PM CDT Temperature 36.8 C (98.3 F) 11/04/2023 4:18 PM CDT Respiratory Rate 30 11/04/2023 11:10 PM CDT Oxygen Saturation 95% 11/04/2023 11:10 PM CDT Inhaled Oxygen Concentration - - Weight 74.8 kg (165 lb) 11/04/2023 4:18 PM CDT Height 167.6 cm (5' 6 ) 11/04/2023 4:18 PM CDT Body Mass Index 26.63 11/04/2023 4:18 PM CDT Plan of Treatment Health Maintenance Due Date Last Done Comments Pre-Diabetes and Diabetes Screening 1957 DTAP/TDAP/TD VACCINES (1 - Tdap) 1976 BREAST CANCER SCREENING 1997 COLORECTAL SCREENING 2002 Colorectal Cancer Screening 2002 FIT-DNA Q 3 years 2002 FIT/FOBT Q 1 year 2002 Flex Sig/CT Colonography Q 5 years 2002 PNEUMOCOCCAL VACCINE 65+ YEARS (1 of 1 - PCV) 04/26/19 08 ZOSTER VACCINE (1 of 2) 2007 OSTEOPOROSIS SCREENING 2022 INFLUENZA VACCINE (#1) 2023 RSV VACCINE (60+ or ) (1 - 1-dose 75+ series) 2032 Insurance [employer] [facility] Care Teams Sewer Separation Designer Relationship Specialty Start Date End Date Xochitl Duarte MD [facility] [place] [address] PCP - General Internal Medicine 08/14/20
--- OUTSIDE RECORDS SUMMARY | 2024-05-19 09:02 | XMS_ITS | Continuity of Care Document ---
Author Organization [employer] Address [address] [place] [address] Phone Care Team Providers Care Diagnostic Sales Specialist Name Role Phone Xochitl Duarte MD Unavailable Unavailable Allergies, Adverse Reactions, Alerts Substance Reaction Status Criticality indomethacin Nausea Active No Information Medications Medication Instructions Dosage Effective Dates (start - stop) Status Comments Lotrimin AF (clotrimazole) 1 % topical cream apply by topical route 2 times every day to the affected and surrounding areas of skin in the morning and evening 0.00 - Active TRELEGY ELLIPTA 200-62.5-25 INHALE 1 PUFF BY INHALATION ROUTE EVERY DAY AT THE SAME TIME EACH DAY - Active hydrocodone 5 mg-acetaminophen 325 mg tablet take 1 tablet by oral route every 8 hours as needed for pain 1 tablet - Active albuterol sulfate HFA 90 mcg/actuation aerosol inhaler inhale 2 puff by inhalation route 4 times every day as needed - Active Xanax 0.5 mg tablet Take one tablet po twice daily as needed. - Active amlodipine 10 mg tablet take 1 tablet by oral route every day 10 MG - Active increased 11-09-23 Estrace 0.01% (0.1 mg/gram) vaginal cream insert (1G) by vaginal route 2 times every week 1 G - Active lisinopril 20 mg tablet TAKE 1 TABLET BY MOUTH TWICE DAILY - Active Increase dose on 11-15-23 pantoprazole 40 mg tablet,delayed release take 1 tablet by oral route every day 40 MG - Active aspirin 81 mg tablet,delayed release take 1 tablet by oral route every day 81 MG - Active Procedures Procedure Date BASIC METABOLIC PANEL(BMP) CBC, INC PLATELETS AND DIFFERENTIAL ROUTINE VENIPUNCTURE OFFICE PDMAN-YAC-BBUSPEVG BODY MASS INDEX DOCD SYST BP LT 130 MM HG DIAST BP < 80 MM HG Chest Xray, 2 Views OFFICE UJHEA-KNK-DNMOEEIR BODY MASS INDEX DOCD SYST BP LT 130 MM HG DIAST BP < 80 MM HG CBC, INC PLATELETS AND DIFFERENTIAL COMPREHEN METABOLIC PANEL CMP LIPID PANEL VITAMIN D, 25-HYDROXY ROUTINE VENIPUNCTURE OFFICE ZCIMQ-ZLP-ARIVHMLX BODY MASS INDEX DOCD SYST BP LT 130 MM HG DIAST BP < 80 MM HG REMOVAL IMPACTED CERUMEN REQUIRING INSTR UMENTATION Covid Vaccine Admin, Single Dose 2023 [facility] tri-sucrose COVID Vacci ne 30 mcg/ OFFICE BVWIN-MZJ-UGBPZMPD BODY MASS INDEX DOCD SYST BP >= 140 MM HG6 IT DIAST BP >= 90 MM HG EKG (ELECTROCARDIOGRAM) OFFICE ZPPLV-PTR-RLFDZYCA BODY MASS INDEX DOCD SYST BP >= 140 MM HG6 IT DIAST BP >= 90 MM HG BASIC METABOLIC PANEL(BMP) CBC, INC PLATELETS AND DIFFERENTIAL SARS-CoV-2/Flu/RSV (all targets) 2023 THYROID STIMULATION HORMONE(TSH) 2023 URINALYSIS W MICROSCOPIC (UA) ROUTINE VENIPUNCTURE OFFICE HPBUY-VYM-PXWMOZHH BODY MASS INDEX DOCD SYST BP LT 130 MM HG DIAST BP 80-89 MM HG OFFICE KARRB-UQE-PCGOVSZF PPPS, subseq visit BODY MASS INDEX DOCD SYST BP LT 130 MM HG DIAST BP 80-89 MM HG URINALYSIS, REFLEX (UA) NSALINE 1000CC INTRAVENOUS INFUSION, HYDRATION; INITIAL , 31 MINUT INTRAVENOUS INFUSION, HYDRATION; EACH AD DITIONAL H OFFICE YPPBX-NVP-QSATGPBV SYST BP LT 130 MM HG DIAST BP < 80 MM HG FALL RISK ASSESSMENT DOC'D PRES/ABSN URINE INCON ASSESS Clin depression screen doc CBC, INC PLATELETS AND DIFFERENTIAL COMPREHEN METABOLIC PANEL CMP FERRITIN LEVEL ROUTINE VENIPUNCTURE NSALINE 1000CC INTRAVENOUS INFUSION, HYDRATION; INITIAL , 31 MINUT OFFICE ZBYVX-QCH-RXWZHWYH SYST BP LT 130 MM HG DIAST BP < 80 MM HG CBC, INC PLATELETS AND DIFFERENTIAL FERRITIN LEVEL ROUTINE VENIPUNCTURE OFFICE GGPLW-PQN-WKRZERNX SYST BP >= 140 MM HG6 IT DIAST BP 80-89 MM HG BASIC METABOLIC PANEL(BMP) CBC, INC PLATELETS AND DIFFERENTIAL ROUTINE VENIPUNCTURE Transitional Care- First 7 Days Of Disch arge SYST BP >= 140 MM HG6 IT DIAST BP < 80 MM HG DSCHRG MED/CURRENT MED MERGE BASIC METABOLIC PANEL(BMP) CBC, INC PLATELETS AND DIFFERENTIAL FERRITIN LEVEL VITAMIN D, 25-HYDROXY ROUTINE VENIPUNCTURE OFFICE YOWVF-JFH-PFYNDHAM SYST BP LT 130 MM HG DIAST BP < 80 MM HG EKG (ELECTROCARDIOGRAM) PULSE OXIMETRY, MULTIPLE Admin influenza virus vac FLU VACC PRSV FREE INC ANTIG OFFICE ZOSNC-VQB-NMRESAZY SYST BP LT 130 MM HG DIAST BP >= 90 MM HG Chest Xray, 2 Views OFFICE ZXHAC-PJR-VQGCAVOE SYST BP GE 130 - 139MM HG DIAST BP < 80 MM HG OFFICE ITGYU-AFQ-VZPINFOY SYST BP >= 140 MM HG6 IT DIAST BP 80-89 MM HG UPPER GI ENDOSCOPY BIOPSY TISSUE EXAM BY PATHOLOGIST SPECIAL STAINS SPECIAL STAINS FALL RISK ASSESSMENT DOC'D PRES/ABSN URINE INCON ASSESS Pt inelig neg scrn depres CBC, INC PLATELETS AND DIFFERENTIAL FERRITIN LEVEL PARATHYROID HORMONE (PTH) VITAMIN D, 25-HYDROXY ROUTINE VENIPUNCTURE REMOVAL IMPACTED CERUMEN REQUIRING INSTR UMENTATION PNEUMOVAX ADM MEDICARE Pneumococcal Conjugate Vaccine (PCV20) J OFFICE BRBDC-PHN-MPSXSACJ SYST BP LT 130 MM HG DIAST BP < 80 MM HG INIT PREVENT PHYS EXAM; LIMITED TO NEW B ENEFICIARY BASIC METABOLIC PANEL(BMP) CBC, INC PLATELETS AND DIFFERENTIAL ROUTINE VENIPUNCTURE INTRAVENOUS INFUSION, HYDRATION; INITIAL , 31 MINUT NSALINE 1000CC OFFICE LFGSQ-DYD-RQKNDTVR SYST BP LT 130 MM HG DIAST BP < 80 MM HG DXA BONE DENSITY, AXIAL SCREENING MAMMOGRAM (CAD) Screening Digital Breast Tomosynthesis M OFFICE VVVLR-KBF-BFWLNBBI BASIC METABOLIC PANEL(BMP) ROUTINE VENIPUNCTURE X-RAY EXAM OF LUMBAR SPINE, A/P & LAT De KENALOG 10 MG KENALOG 10 MG ASP/INJ MAJOR JOINTOR BURSA, SHOULDER, H IP,KNEE W/O US GUIDANCE OFFICE VKYBZ-RCZ-YIJETUBJ IMMUN ADMIN (INC PERCUTANEOUS) SINGLE, F IRST INJ FLU VAC NO PRSV 4 IVA, 0.5mL DOSAGE OFFICE ZSTGM-RIU-JDONIMFS DUPLEX SCAN OF ABD, PELV, SCROT, COMPLET E ULTRASOUND RETROPERITONEAL ( AORTA, RENAL, NODES) REAL TIME W/ DOCUMENTATION, CO DUPLEX SCAN LOWER EXTREMITY EXTREMITY STUDY/BILATERAL (VENECIA) 022 OFFICE VRBVS-CPM-EAGFSTFD BASIC METABOLIC PANEL(BMP) ROUTINE VENIPUNCTURE OFFICE KLALL-FVI-QFWKWNZQ BASIC METABOLIC PANEL(BMP) ROUTINE VENIPUNCTURE BP OFFICE/OUTPATIENT VISIT EST 22 OFFICE RKEDM-VIV-VMFYWSRK CBC, INC PLATELETS AND DIFFERENTIAL COMPREHEN METABOLIC PANEL CMP ROUTINE VENIPUNCTURE INTRAVENOUS INFUSION, HYDRATION; INITIAL , 31 MINUT NSALINE 1000CC BASIC METABOLIC PANEL(BMP) ROUTINE VENIPUNCTURE OFFICE OMFCY-KDS-QAZCHVNZ KENALOG 10 MG KENALOG 10 MG ASP/INJ MAJOR JOINTOR BURSA, SHOULDER, H IP,KNEE W/O US GUIDANCE X-RAY EXAM OF KNEES OFFICE FDAQD-RIE-LPBSZMNT BASIC METABOLIC PANEL(BMP) ROUTINE VENIPUNCTURE OFFICE KEYMP-VEX-IRHGVRBA BASIC METABOLIC PANEL(BMP) ROUTINE VENIPUNCTURE IMMUN ADMIN (INC PERCUTANEOUS) SINGLE, F IRST INJ FLU VACC PRSV FREE INC ANTIG OFFICE LKDRU-XUV-NDTVKEFQ BASIC METABOLIC PANEL(BMP) ROUTINE VENIPUNCTURE OFFICE SGFUI-EUG-OIMADHMW OFFICE LHOVQ-YFU-FFNZMGHI OFFICE IFIND-NJP-VRSKDSVI BASIC METABOLIC PANEL(BMP) PARATHYROID HORMONE (PTH) URIC ACID, (S) VITAMIN D, 25-HYDROXY ROUTINE VENIPUNCTURE OFFICE MESTY-UYZ-LLATFHFX IMMUN ADMIN (INC PERCUTANEOUS) SINGLE, F IRST INJ FLU VAC NO PRSV 4 IVA, 0.5mL DOSAGE X-RAY EXAM OF FOOT DIAGNOSTIC MAMMOGRAM (CAD) ONE BREAST Ju US Breast, Unilateral, Limited SCREENING MAMMOGRAM (CAD) CTA, CHEST, W/OUT CONTRAST,F OLLOWED BY CONTRAST,INCLUDING IMAGE POST-PROCESSING LOW OSMOLAR CONTRAST (300 TO 399 MG IODI NE) TELEPHONE E&M SERVICE BY A PHYSICIAN;5-1 0 MINUTES OF MEDICAL DISCUSSION BASIC METABOLIC PANEL(BMP) ROUTINE VENIPUNCTURE OFFICE SXDNH-IZT-FTHDZUGJ CT ABD&PELV 1+ SECTION/REGNS LOW OSMOLAR CONTRAST (300 TO 399 MG IODI NE) TISSUE EXAM BY PATHOLOGIST SCREENING COLONOSCOPY (NOT HIGH RISK) Ja UPPER GI ENDOSCOPY BIOPSY CBC, INC PLATELETS AND DIFFERENTIAL COMPREHEN METABOLIC PANEL [facility] 9 URINALYSIS, REFLEX (UA) ROUTINE VENIPUNCTURE OFFICE RCCKQ-JKZ-KICHMZMO FERRITIN LEVEL COMPREHEN METABOLIC PANEL [facility] 9 ROUTINE VENIPUNCTURE OFFICE ZWWRL-KOI-RPMMUGNR X-RAY EXAM OF FOOT OFFICE HXVKL-GSO-KHBDTORX Advance Directives Directive Yes / No Effective Date File Name Life Support Not Answered N/A N/A Intubation Not Answered N/A N/A Antibiotics Not Answered N/A N/A IV Fluid Support Not Answered N/A N/A Tube Feed Not Answered N/A N/A Other Directive N/A N/A WARNING:The information contained in this section is historical and is provided for information only and does not constitute a legal document or any assurance that the information is still accurate. Please verify the information with the oakley of the legal document before using it for clinical purposes. Encounters Encounter Description Practice Location Reason(s) For Visit Diagnoses Date Provider Providers Copied on Encounter [employer], [address], [place], [place], [address] , tel: [phone] [facility] No Information 5 Felicia Leung. [address], [place], [place], [address], [place]. [phone] [employer], [address], [place], [place], [address] , tel: [phone] [facility] No Information 5 Felicia Leung. [address], [place], [place], [address], [place]. tel:[phone] OFFICE JRARW-FPM-QGS [facility], [address], [place], [place], [address] , tel:[phone] [facility] Chronic Conditions (chief complaint) Other emphysemaHyperten sive chronic kidney disease with stage 1 through stage 4 chronic kidney disease, or unspecified chronic kidney diseaseStage 3a chronic kidney diseaseIron deficiency anemia, unspecified iron deficiency anemia typeAcute pneumoniaRight lower lobe lung massAtheroscleros is of aortaThoracic aortic aneurysm, without rupture, unspecifiedBilate ral primary osteoarthritis of knee 5 Felicia Leung. [address], [place], [place], [address], [place]. tel:[phone] Referring Provider: Xochitl Perez, [address], [place], [address] . tel:[phone] [facility], [address], [place], [place], [address] , tel:[phone] [facility] No Information 5 Felicia Leung. [address], [place], [place], [address], [place]. tel:[phone] OFFICE KAPQX-MAC-BMM [facility], [address], [place], [place], [address] , tel:[phone] [facility] acute visit (chief complaint)C hronic Conditions (chief complaint) Acute pneumoniaEssentia l (primary) hypertensionOther emphysema 5 Genao Yue. [address], [place], [place], [address], [place]. tel:[phone] Referring Provider: Xochitl Perez, [address], [place], [address] . tel:[phone] [facility], [address], [place], [place], [address] , [phone] [facility] No Information 4 Felicia Leung. [address], [place], [place], [address], [place]. [phone] [facility], [address], [place], [place], [address] , [place] tel: [phone] [facility] No Information 0 2 4 Felicia Leung. [address], [place], [place], [address], [place]. tel:[phone] OFFICE VUPKZ-HCD-EII RENETTA [facility], [address], [place], [place], [address] , tel: [phone] [facility] Chronic Conditions (chief complaint) Stage 3a chronic kidney diseaseHypertensi ve chronic kidney disease with stage 1 through stage 4 chronic kidney disease, or unspecified chronic kidney diseaseAtheroscle rosis of aortaOther emphysemaIron deficiency anemia, unspecified iron deficiency anemia typeActinic keratosisImpacted cerumen of both earsVaginal drynessScreening mammogram for breast cancer 2 4 [employer]. [address], [place], [place], [address], [place]. tel:[phone] Referring Provider: Xochitl Perez, [address], [place], [address] . tel:[phone] [facility], [address], [place], [place], [address] , [place] tel: [phone] [facility] No Information 0 4 Cizek Xochitl. [address], [place], [place], [address], [place]. tel:[phone] [facility], [address], [place], [place], [address] , [place] tel: [phone] [facility] No Information 0 3-202 4 Cizek Xochitl. [address], [place], [place], [address], [place]. tel:[phone] [facility], [address], [place], [place], [address] , tel: [phone] [facility] No Information 0 - 4 Cizek Xochitl. [address], [place], [place], [address], . tel:[phone] OFFICE IQZCB-IEF-NEG [facility], [address], [place], [place], [address] , tel: [phone] [facility] Chronic Conditions (chief complaint) Hypertensive chronic kidney disease with stage 1 through stage 4 chronic kidney disease, or unspecified chronic kidney diseaseStage 3a chronic kidney diseaseFolliculit isNasal sore 4 [employer]. [address], [place], [place], [address], . tel:[phone] Referring Provider: Xochitl Perez, [address], [place], [address] . tel:[phone] OFFICE LNLKW-GOB-WFF [facility], [address], [place], [place], [address] , tel: [phone] [facility] Hypertensive chronic kidney disease with stage 1 through stage 4 chronic kidney disease, or unspecified chronic kidney diseaseStage 3a chronic kidney disease 4 [employer]. [address], [place], [place], [address], [place]. tel:[phone] Referring Provider: Xochitl Perez, [address], [place], [address] . tel:[phone] OFFICE QOSEA-TVJ-KTB [facility], [address], [place], [place], [address] , tel:[phone] [facility] Chronic Conditions (chief complaint) Hypertensive chronic kidney disease with stage 1 through stage 4 chronic kidney disease, or unspecified chronic kidney diseaseStage 3a chronic kidney diseaseAcute cystitis without hematuriaFatigue, unspecified typeSymptoms of upper respiratory infection (URI)Intermittent constipation 4 [employer]. [address], [place], [place], [address], . tel:[phone] Referring Provider: Xochitl Perez, [address], [place], [address] . tel:[phone] OFFICE GOXAX-NJK-HUR [facility], [address], [place], [place], [address] , tel:[phone] [facility] Medicare preventive (chief complaint)M edicare preventive (chief complaint)C hronic Conditions (chief complaint) Hypertensive chronic kidney disease with stage 1 through stage 4 chronic kidney disease, or unspecified chronic kidney diseaseStage 3a chronic kidney diseaseMedicare annual wellness visit, subsequentAtheros clerosis of aortaThoracic aortic aneurysm, without rupture, unspecifiedOsteop enia of multiple sitesAcute cystitis without hematuria 4 Felicia Leung. [address], [place], [place], [address], [place]. tel:[phone] Referring Provider: Xochitl Perez, [address], [place], [address] . tel:[phone] OFFICE KMTGS-JMX-CPO [facility], [address], [place], [place], [address] , tel:[phone] [facility] Chronic Conditions (chief complaint)c hronic conditions (chief complaint) Hypotension, unspecified hypotension typeHypertensive chronic kidney disease with stage 1 through stage 4 chronic kidney disease, or unspecified chronic kidney diseaseStage 3a chronic kidney diseaseUrinary frequencyAbnormal urinalysis 4 Felicia Leung. [address], [place], [place], [address], [place]. tel:[phone] Referring Provider: Xochitl Perez, [address], [place], [address] . tel:[phone] OFFICE FKVYU-MDZ-IFZ [facility], [address], [place], [place], [address] , tel:[phone] [facility] Chronic Conditions (chief complaint) Hypertensive chronic kidney disease with stage 1 through stage 4 chronic kidney disease, or unspecified chronic kidney diseaseStage 3a chronic kidney diseaseOther emphysemaIron deficiency anemia, unspecified iron deficiency anemia typeHypotension, unspecified hypotension type 4 Felicia Leung. [address], [place], [place], [address], . tel:[phone] Referring Provider: Xochitl Perez, [address], [place], [address] . tel:[phone] [facility], [address], [place], [place], [address] , tel: [phone] [facility] No Information 4 Felicia Leung. [address], [place], [place], [address], . tel:[phone] [facility], [address], [place], [place], [address] , tel: [phone] [facility] Urinary frequency 4 Felicia Leung. [address], [place], [place], [address], . tel:[phone] OFFICE PSRNH-DJK-TWL RENETTA [facility], [address], [place], [place], [address] , tel: [phone] [facility] Chronic Conditions (chief complaint) Hypertensive chronic kidney disease with stage 1 through stage 4 chronic kidney disease, or unspecified chronic kidney diseaseStage 3a chronic kidney diseaseOther emphysemaIron deficiency anemia, unspecified iron deficiency anemia type 4 Felicia Leung. [address], [place], [place], [address], . tel:[phone] Referring Provider: Xochitl Perez, [address], [place], [address] . tel:[phone] Transitional Care- First 7 Days Of Discharge [facility], [address], [place], [place], [address] , tel: [phone] [facility] Chronic Conditions (chief complaint) Hypertensive chronic kidney disease with stage 1 through stage 4 chronic kidney disease, or unspecified chronic kidney diseaseStage 3a chronic kidney diseaseAcute cystitis without hematuriaHyponatr emiaHypokalemiaLe ukocytosis, unspecified type Feb-2 4 Felicia Leung. [address], [place], [place], [address], . tel:[phone] Referring Provider: Xochitl Perez, [address], [place], [address] . tel:[phone] [facility], [address], [place], [place], [address] , tel:[phone] [facility] No Information 4 Felicia Leung. [address], [place], [place], [address], . tel:[phone] Referring Provider: Xochitl Perez, [address], [place], [address] . tel:[phone] OFFICE QYONA-TGQ-FZS [facility], [address], [place], [place], [address] , tel: [phone] [facility] Chronic Conditions (chief complaint) Hypertensive chronic kidney disease with stage 1 through stage 4 chronic kidney disease, or unspecified chronic kidney diseaseStage 3a chronic kidney diseaseBilateral primary osteoarthritis of kneeIron deficiency anemia, unspecified iron deficiency anemia typeOther emphysemaEssentia l (primary) hypertension 3 Felicia Leung. [address], [place], [place], [address], [place]. tel:[phone] Referring Provider: Xochitl Perez, [address], [place], [address] . tel:[phone] OFFICE FEGDS-OUY-QKU [facility], [address], [place], [place], [address] , tel:[phone] [facility] Chronic Conditions (chief complaint) Other emphysemaHyperten sive chronic kidney disease with stage 1 through stage 4 chronic kidney disease, or unspecified chronic kidney diseaseStage 3a chronic kidney diseaseBilateral primary osteoarthritis of kneeHypoxia 3 Felicia Leung. [address], [place], [place], [address], . tel:[phone] Referring Provider: Xochitl Perez, [address], [place], [address] . tel:[phone] OFFICE AVUJC-HYL-FMR RENETTA [facility], [address], [place], [place], [address] , tel: [phone] [facility] Chronic Conditions (chief complaint) Other emphysemaHypoxiaP ain in left knee 3 Felicia Leung. [address], [place], [place], [address], [place]. tel:[phone] Referring Provider: Xochitl Perez, [address], [place], [address] . tel:[phone] OFFICE JMFJS-ZPR-UBX [facility], [address], [place], [place], [address] , [place] tel: [phone] [facility] acute visit (chief complaint) Hypertensive chronic kidney disease with stage 1 through stage 4 chronic kidney disease, or unspecified chronic kidney diseaseStage 3a chronic kidney diseasePain in left kneePain in right kneeGastroesophag eal reflux disease with esophagitis without hemorrhage Aug 3 Nohemi Mckeon. [address], [place], [place], [address], [place]. tel:[phone] Referring Provider: Xochitl Perez, [address], [place], [address] . tel:[phone] [facility], [address], [place], [place], [address] , tel:[phone] [facility] No Information 3 Km [address]. [address] [facility], [address], [address], [place]. [phone] Referring Provider: Xochitl Perez, [address], [place], [address] . [phone] [facility], [address], [place], [place], [address] , tel:[phone] [facility] No Information 3 Maikel Stein. [address] [place], [address], . tel:[phone] Referring Provider: Xochitl Perez, [address], [place], [address] . tel:[phone] [facility], [address], [place], [place], [address] , tel: [phone] [facility] Iron deficiency anemia, unspecified iron deficiency anemia type 3 Felicia Leung. [address], [place], [place], [address], [place]. tel:[phone] OFFICE WQXEL-FQS-YFE [facility], [address], [place], [place], [address] , tel: [phone] [facility] Medicare preventive (chief complaint)C hronic Conditions (chief complaint) Hypertensive chronic kidney disease with stage 1 through stage 4 chronic kidney disease, or unspecified chronic kidney diseaseStage 3a chronic kidney diseaseOther emphysemaAtherosc lerosis of aortaSenile purpuraMedicare annual wellness visit, subsequentOsteope river of multiple sitesAnemia, unspecified typeRight wrist fracture, sequelaImpacted cerumen, bilateralMild cognitive impairment 3 Felicia Leung. [address], [place], [place], [address], [place]. tel:[phone] Referring Provider: Xochitl Perez, [address], [place], [address] . tel:[phone] OFFICE UTADT-GXU-BZP [facility], [address], [place], [place], [address] , tel: [phone] [facility] acute visit (chief complaint) Diarrhea, unspecified typeHypertensive chronic kidney disease with stage 1 through stage 4 chronic kidney disease, or unspecified chronic kidney diseaseStage 3a chronic kidney disease 3 Nohemi Mckeon. [address], [place], [place], [address], [place]. tel:[phone] Referring Provider: Xochitl Perez, [address], [place], [address] . tel:[phone] [facility], [address], [place], [place], [address] , tel:[phone] [facility] No Information 3 Felicia Lindsay. [address] [place], [place], [address], . tel:[phone] Referring Provider: Xochitl Perez, [address], [place], [address] . tel:[phone] OFFICE NWIEY-RSG-YNO [facility], [address], [place], [place], [address] , tel:[phone] [facility] Chronic Conditions (chief complaint) Hypertensive chronic kidney disease with stage 1 through stage 4 chronic kidney disease, or unspecified chronic kidney diseaseStage 3a chronic kidney diseasePeripheral vascular diseaseAtheroscle rosis of aortaOther emphysema 3 Cizemarilyn Leung. [address], [place], [place], [address], [place]. tel:[phone] Referring Provider: Xochitl Perez, [address], [place], [address] . tel:[phone] OFFICE GUYNK-XHI-EIE [facility], [facility], [place], [place], [address] , [phone] [facility] Chronic Conditions (chief complaint) Hypertensive chronic kidney disease with stage 1 through stage 4 chronic kidney disease, or unspecified chronic kidney diseaseStage 3a chronic kidney diseasePain in right kneePain in left kneeOther chronic painLumbar radiculopathy 2 Cizek Xochitl. [address], [place], [place], [address], [place]. tel:[phone] Referring Provider: Xochitl Perez, [address], [place], [address] . tel:[phone] [facility], [address], [place], [place], [address] , tel:[phone] [facility] No Information 2 Cizek Xochitl. [address], [place], [place], [address], [place]. tel:[phone] Referring Provider: Xochitl Perez, [address], [place], [address] . tel:[phone] OFFICE JQLEV-AVX-VOL ANDED [facility], [address], [place], [place], [address] , tel:[phone] [facility] Chronic Conditions (chief complaint) Hypertensive chronic kidney disease with stage 1 through stage 4 chronic kidney disease, or unspecified chronic kidney diseaseStage 3a chronic kidney diseaseLumbar radiculopathy 2 Felicia Leung. [address], [place], [place], [address], [place]. tel:[phone] Referring Provider: Xochitl Perez, [address], [place], [address] . tel:[phone] [facility], [address], [place], [place], [address] , [place] [phone] [facility] No Information 2 Brenna Stokes. [address], [place], [place], [address], [place]. tel:[phone] Referring Provider: Garfield Basilio, [address] [facility] [address], [place], [address]. tel:[phone] [facility], [address], [place], [place], [address] , [place] tel:[phone] [facility] No Information 2 Jaleel Jones. [address], [place], [place], [address], [place]. tel:[phone] Referring Provider: Xochitl Perez, [address], [place], [address] . tel:[phone] OFFICE ZQVXB-UVC-VCW RENETTA [facility], [address], [place], [address] , [place] tel:[phone] [facility] Hypertensive chronic kidney disease with stage 1 through stage 4 chronic kidney disease, or unspecified chronic kidney diseaseStage 3a chronic kidney diseaseAtheroscle rosis of aortaPeripheral vascular disease May-0 2 Felicia Leung. [address], [place], [place], [address], . tel:[phone] Referring Provider: Xochitl Perez, [address], [place], [address] . tel:[phone] [facility], [address], [place], [place], [address] , tel:[phone] [facility] acute visit (chief complaint) Superficial phlebitisBenign essential hypertension Apr-2 2 Nohemi Mckeon. [address], [place], [place], [address], [place]. tel:[phone] Referring Provider: Xochitl Perez, [address], [place], [address] . tel:[phone] OFFICE/OUTPAT IENT VISIT EST [facility], [address], [place], [place], [address] , tel:[phone] [facility] DehydrationHypert ensive chronic kidney disease with stage 1 through stage 4 chronic kidney disease, or unspecified chronic kidney disease Apr- 2 Felicia Leung. [address], [place], [place], [address], [place]. tel:[phone] Referring Provider: Xochitl Perez, [address], [place], [address] . tel:[phone] OFFICE ZSSEN-VPG-QYC [facility], [address], [place], [place], [address] , tel:[phone] [facility] Chronic Conditions (chief complaint) Acute UTIDehydrationBen ign hypertensive renal diseaseStage 3a chronic kidney disease Apr-0 2 Felicia Leung. [address], [place], [place], [address], . tel:[phone] Referring Provider: Xochitl Perez, [address], [place], [address] . tel:[phone] OFFICE GPXDA-CGG-BCO [facility], [address], [place], [place], [address] , tel: [phone] [facility] Chronic Conditions (chief complaint) Benign hypertensive renal diseaseOther emphysemaStage 3a chronic kidney diseaseDDD (degenerative disc disease), cervicalBilateral primary osteoarthritis of knee Jun-0 2 Cizek Xochitl. [address], [place], [place], [address], [place]. tel:[phone] Referring Provider: Xochitl Perez, [address], [place], [address] . tel:[phone] OFFICE IIOVD-GVL-VNR [facility], [address], [place], [place], [address] , tel: [phone] [facility] Chronic Conditions (chief complaint) Benign hypertensive renal diseaseStage 3a chronic kidney diseaseOther emphysemaDDD (degenerative disc disease), cervical Dec-0 1 Cizemarilyn Xochitl. [address], [place], [place], [address], [place]. [phone] Referring Provider: Xochitl Perez, [address], [place], [address] . tel:[phone] OFFICE LNGCV-UQH-GIY [facility], [address], [place], [place], [address] , tel: [phone] [facility] Chronic Conditions (chief complaint) Benign hypertensive renal diseaseStage 3a chronic kidney diseaseThoracic aortic aneurysm without rupture Dec-0 1 Cizek Xochitl. [address], [place], [place], [address], [place]. tel:[phone] Referring Provider: Xochitl Perez, [address], [place], [address] . tel:[phone] OFFICE GGAMU[facility]XJF-ZYQ [facility], [address], [place], [place], [address] , tel: [phone] [facility] Chronic Conditions (chief complaint) Benign hypertensive renal diseaseStage 3a chronic kidney diseaseOther emphysemaTear of right biceps muscle, subsequent encounter Sep-0 1 Felicia Leung. [address], [place], [place], [address], . tel:[phone] Referring Provider: Xochitl Perez, [address], [place], [address] . tel:[phone] OFFICE BNLWC-YFF-HSM [facility], [address], [place], [place], [address] , tel: [phone] [facility] Chronic Conditions (chief complaint) Benign hypertensive renal diseaseStage 3a chronic kidney diseaseThoracic aortic aneurysm without ruptureAtheroscle rosis of aortaSenile purpuraTear of right biceps muscle, subsequent encounter Jul- 1 Felicia Leung. [address], [place], [place], [address], [place]. tel:[phone] Referring Provider: Xochitl Perez, [address], [place], [address] . tel:[phone] [facility], [address], [place], [place], [address] , [place] tel: [phone] [facility] Strain of muscle, fascia and tendon of other parts of biceps, right arm, initial encounter Jul- 1 Felicia Leung. [address], [place], [place], [address], [place]. tel:[phone] OFFICE NYGPY-CGM-XNZ [facility], [address], [place], [place], [address] , tel: [phone] [facility] acute visit (chief complaint) Tear of right biceps muscle, initial encounterBenign hypertensive renal diseaseStage 3a chronic kidney disease Jul- 1 Nohemi Mckeon. [address], [place], [place], [address], [place]. tel:[phone] Referring Provider: Xochitl Perez, [address], [place], [address] . tel:[phone] OFFICE ABDDA-AAJ-DYZ [facility], [address], [place], [address] , tel:[phone] [facility] Chronic Conditions (chief complaint) Hypertensive chronic kidney disease with stage 1 through stage 4 chronic kidney disease, or unspecified chronic kidney diseaseChronic kidney disease, stage 3 unspecifiedOther emphysema 0 Felicia Leung. [address], [place], [place], [address], [place]. [phone] Referring Provider: Xochitl Perez, [address], [place], [address] . tel:[phone] OFFICE HVQPB-UZU-XNM [facility], [address], [place], [place], [address] , tel:[phone] [facility] Chronic Conditions (chief complaint) Other emphysemaThoracic aortic aneurysm without ruptureHypertensi ve chronic kidney disease with stage 1 through stage 4 chronic kidney disease, or unspecified chronic kidney diseaseChronic kidney disease, stage 3 (moderate)Vitamin D deficiencyFoot pain, right Sep-0 0 Felicia Leung. [address], [place], [place], [address], [place]. tel:[phone] Referring Provider: Xochitl Perez, [address], [place], [address] . tel:[phone] [facility], [address], [place], [place], [address] , [place] tel:[phone] [facility] No Information 0 Brenna Stokes. [address], [place], [place], [address], [place]. tel:[phone] Referring Provider: Xochitl Perez, [address], [place], [address] . tel:[phone] [facility], [address], [place], [place], [address] , tel:[phone] [facility] Breast nodule 0 Felicia Leung. [address], [place], [place], [address], [place]. [phone] [facility], [address], [place], [place], [address] , tel:[phone] [facility] No Information [address] [facility], [place], [place], [address], [place]. [phone] Referring Provider: Xochitl Perez, [address], [place], [address] . tel:[phone] TELEPHONE E&M SERVICE BY A PHYSICIAN;5-1 0 MINUTES OF MEDICAL DISCUSSION [facility], [address], [place], [place], [address] , tel:[phone] [facility] Chronic Conditions (chief complaint) Other emphysemaAllergic dermatitis 0 Felicia Leung. [address], [place], [place], [address], . [phone] Referring Provider: Xochitl Perez, [address], [place], [address] . tel:[phone] OFFICE WQIYH-KCE-AIZ RENETTA [facility], [address], [place], [place], [address] , tel:[phone] [facility] Chronic Conditions (chief complaint) Essential hypertensionOther emphysemaThoracic aortic aneurysm without ruptureSenile purpuraAtheroscle rosis of aorta 0 Felicia Leung. [address], [place], [place], [address], [place]. tel:[phone] Referring Provider: Xochitl Perez, [address], [place], [address] . tel:[phone] [facility], [address], [place], [place], [address] , tel:[phone] [facility] No Information 0 Felicia Thakkar [address] [place], [place], [address], . tel:[phone] Referring Provider: Kike Barbour, [address] [place] [address], [address] . tel:[phone] [facility], [address], [place], [place], [address] , tel: [phone] [facility] Periumbilical abdominal pain 0 Km Stokes. [address] [place] [address], [address], [address], [place]. tel:[phone] [facility], [address], [place], [place], [address] , tel: [phone] [facility] No Information 0 Km Stokes. [address] [place] [address], [address], [address], . tel:[phone] Referring Provider: Xochitl Perez, [address], [place], [address] . tel:[phone] [facility], [address], [place], [address] , [place] tel: [phone] [facility] No Information 0 Km Stokes. [address] [place] [address], [address], [address], [place]. tel:[phone] Referring Provider: Xochitl Perez, [address], [place], [address] . tel:[phone] OFFICE BNRSI-OTQ-OAQ RENETTA [facility], [address], [place], [place], [address] , [place] tel: [phone] [facility] Chronic Conditions (chief complaint) Essential hypertensionOther emphysemaRight lower quadrant abdominal painAnemia, unspecified type Nov-2 Felicia Leung. [address], [place], [place], [address], [place]. tel:[phone] Referring Provider: Xochitl Perez, [address], [place], [address] . tel:[phone] OFFICE JLUBB-OBK-FKI [facility], [address], [place], [place], [address] , tel: [phone] [facility] Chronic Conditions (chief complaint) Essential hypertensionOther emphysemaAnkle edema, bilateralOnychomy cosis 9 Felicia Leung. [address], [place], [place], [address], . tel:[phone] Referring Provider: Xochitl Peerz, [address], [place], [address] . tel:[phone] OFFICE OLXLF-EXQ-DCF ANDED [facility], [address], [place], [place], [address] , tel: [phone] [facility] acute visit (chief complaint) Left foot painTobacco user 9 Candelario Kassandra. [address], [place], [place], [address], . tel:[phone] Referring Provider: Xochitl Perez, [address], [place], [address] . tel:[phone] [facility], [address], [place], [place], [address] , tel: [phone] [facility] No Information Felicia Leung. [address], [place], [place], [address], . tel:[phone] Referring Provider: Xochitl Perez, [address], [place], [address] . tel:[phone] [facility], [address], [place], [place], [address] , tel: [phone] [facility] Chronic Conditions (chief complaint) Essential hypertensionOther emphysemaSenile purpuraLung nodulesThoracic aortic aneurysm without ruptureTobacco use 9 Felicia Leung. [address], [place], [place], [address], . tel:[phone] Referring Provider: Xochitl Perez, [address], [place], [address] . tel:[phone] [facility], [address], [place], [place], [address] , tel: [phone] [facility] Chronic Conditions (chief complaint) Essential hypertensionOther emphysemaTobacco consumptionPneumo river of both lower lobes due to infectious organism Fe 9 Felicia Leung. [address], [place], [place], [address], [place]. tel:[phone] Referring Provider: Xochitl Perez, [address], [place], [address] . tel:[phone] [facility], [address], [place], [place], [address] , tel: [phone] [facility] Chronic Conditions (chief complaint) Pneumonia of both lower lobes due to infectious organismOther emphysemaTobacco consumptionEssent ial hypertensionSenil e purpura 9 Felicia Leung. [address], [place], [place], [address], [place]. tel:[phone] Referring Provider: Xochitl Perez, [address], [place], [address] . tel:[phone] [facility], [address], [place], [address] , [place] tel: [phone] [facility] Abnormal chest CT 8 Hank Ricci. [address] , [place], [place], [address], [place]. tel:[phone] Referring Provider: Xochitl Perez, [address], [place], [address] . tel:[phone] [facility], [address], [place], [place], [address] , [place] tel: [phone] [facility] Annual physical examEssential hypertensionOsteo peniaAnxiety disorder, unspecifiedVitami n D deficiencyTobacco consumptionGenera lized abdominal painBilateral impacted cerumen 8 Felicia Leung. [address], [place], [place], [address], [place]. tel:[phone] Referring Provider: Xochitl Perez, [address], [place], [address] . tel:[phone] [facility], [address], [place], [place], [address] , tel: [phone] [facility] IM Encounter for screening for osteoporosis 8 Felicia Leung. [address], [place], [place], [address], [place]. tel:[phone] [facility], [address], [place], [place], [address] , tel: [phone] [facility] Essential hypertensionSenil e purpuraAnxiety disorder, unspecified 8 Felicia Leung. [address], [place], [place], [address], . tel:[phone] Referring Provider: Xochitl Perez, [address], [place], [address] . tel:[phone] [employer], [address], [place], [place], [address] , tel: [phone] [facility] OsteopeniaEssenti al hypertensionSenil e purpuraEncounter for gynecological examination (general) (routine) without abnormal findingsPolyosteo arthritis, unspecifiedAnxiet y disorder, unspecifiedFall, initial encounter 7 Felicia Leung. [address], [place], [place], [address], [place]. tel:[phone] Referring Provider: Xochitl Perez, [address], [place], [address] . tel:[phone] [facility], [address], [place], [place], [address] , tel: [phone] [facility] Essential hypertensionAcute pain of right shoulder Mar-0 7 Felicia Leung. [address], [place], [place], [address], [place]. tel:[phone] Referring Provider: Xochitl Perez, [address], [place], [address] . tel:[phone] [facility], [address], [place], [place], [address] , tel: [phone] [facility] Essential hypertensionSenil e purpura 4-201 6 Cizek Xochitl. [address], [place], [place], [address], . tel: [phone] Referring Provider: Xochitl Perez, [address], [place], [address] . tel:[phone] [facility], [address], [place], [place], [address] , tel: [phone] [facility] No Information 3-201 6 Cizek Xochitl. [address], [place], [place], [address], . tel: [phone] [facility], [address], [place], [place], [address] , tel: [phone] [facility] Essential hypertension 5-201 6 Cizek Xochitl. [address], [place], [place], [address], . tel: [phone] Referring Provider: Xochitl Perez, [address], [place], [address] . tel:[phone] [facility], [address], [place], [place], [address] , tel: [phone] [facility] Elevated blood pressure (not hypertension) 6-201 6 Cizek Xochitl. [address], [place], [place], [address], . tel: [phone] [facility], [address], [place], [place], [address] , tel: [phone] [facility] Essential hypertension 9-201 6 Cizek Xochitl. [address], [place], [place], [address], . tel: [phone] Referring Provider: Xochitl Perez, [address], [place], [address] . tel:[phone] [facility], [address], [place], [place], [address] , tel: [phone] [facility] Essential hypertensionAcute viral conjunctivitis of both eyes 0 4 6 Cizek Xochitl. [address], [place], [place], [address], [place]. tel:[phone] Referring Provider: Xochitl Perez, [address], [place], [address] . tel:[phone] [facility], [address], [place], [place], [address] , tel: [phone] [facility] Osteopenia 0- 6 Cizek Xochitl. [address], [place], [place], [address], [place]. tel:[phone] [facility], [address], [place], [place], [address] , tel: [phone] [facility] Right-sided low back pain without sciaticaOsteopeni aEssential hypertension 0 6 Detmer Bety. [address], [place], [place], [address], [place]. tel:[phone] Referring Provider: Xochitl Perez, [address], [place], [address] . tel:[phone] [facility], [address], [place], [place], [address] , tel: [phone] [facility] Routine gynecological examOsteoarthrosi s, Unspecified, Unspecified SiteOsteopeniaEle vated blood pressure (not hypertension)Ceru men impactionAbdomina l painAnxiety state, unspecified 2 5 Cizek Xochitl. [address], [place], [place], [address], [place]. tel:[phone] Referring Provider: Xochitl Perez, [address], [place], [address] . tel:[phone] [facility], [address], [place], [place], [address] , tel: [phone] [facility] Elevated blood pressure (not hypertension)Oste oarthrosis, generalized, involving unspecifiedTobacc o useAnxiety state, unspecifiedOsteop eniaCerumen impactionRoutine gynecological exam 3 Felicia Leung. [address], [place], [place], [address], [place]. tel: [phone] Referring Provider: Xochitl Perez, [address], [place], [address] . tel:[phone] [facility], [address], [place], [place], [address] , tel: [phone] [facility] Urinary tract infection, site not specifiedAcute upper respiratory infections of unspecified siteTobacco use disorder 3 Detmer Bety. [address], [place], [place], [address], [place]. tel:[phone] Referring Provider: Xochitl Perez, [address], [place], [address] . tel:[phone] [facility], [address], [place], [place], [address] , tel: [phone] [facility] Osteoarthrosis, generalized, involving unspecified siteAnxiety state, unspecifiedTobacc o use disorderUrinary tract infection, site not specifiedElevated blood pressure reading without diagnosis of hypertension 2 Felicia Leung. [address], [place], [place], [address], [place]. tel:[phone] Referring Provider: Xochitl Perez, [address], [place], [address] . tel:[phone] [facility], [address], [place], [place], [address] , tel: [phone] [facility] Urinary tract infection 2 Detmer Bety. [address], [place], [place], [address], [place]. 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 [address], [place], [place], [address], [place]. tel:[phone] Referring Provider: Xochitl Perez, [address], [place], [address] . tel:[phone] [facility], [address], [place], [place], [address] , tel: [phone] [facility] Shoulder pain, left 2 Detmer Bety. [address], [place], [place], [address], [place]. tel:[phone] Referring Provider: Xochitl Perez, [address], [place], [address] . tel:[phone] [employer], [address], [place], [place], [address] , [place] tel: [phone] [facility] Superficial injury of cornea 1 Siri Anthony. [address], [place], [place], [address]. tel:[phone] Referring Provider: Xochitl Perez, [address], [place], [address] . tel:[phone] [facility], [address], [place], [place], [address] , tel: [phone] [facility] Routine gynecological examinationAnxiet y state, unspecifiedOsteoa rthrosis, Unspecified, Unspecified SiteImpacted cerumen 1 Felicia Leung. [address], [place], [place], [address], [place]. tel:[phone] Referring Provider: Xochitl Perez, [address], [place], [address] . tel:[phone] [facility], [address], [place], [place], [address] , [place] tel: [phone] [facility] PAIN IN LIMBREDNESS/DISCH ARGE OF EYE Jul-2 1-201 1 Cizek Xochitl. [address], [place], [place], [address], [place]. tel: [phone] [facility], [address], [place], [place], [address] , [place] tel: [phone] [facility] IM TOBACCO USE DISORDER Oct-2 7-201 0 Cizek Xochitl. [address], [place], [place], [address], [place]. tel: [phone] [facility], [address], [place], [place], [address] , [place] tel: [phone] [facility] ANXIETY STATE NOSROUTINE MEDICAL EXAMSCREEN MAL NEOP-RECTUM Olvin-2 5-200 9 Cizek Xochitl. [address], [place], [place], [address], [place]. tel: [phone] [facility], [address], [place], [place], [address] , [place] tel: [phone] [facility] PURE HYPERCHOLESTEROLE M 8-200 6 Cizek Xochitl. [address], [place], [place], [address], [place]. tel: [phone] [facility], [address], [place], [address] , [place] tel: [phone] [facility] GENERAL OSTEOARTHROSISLON G-TERM USE MEDS NEC Sep-0 1-200 5 Cizek Xochitl. [address], [place], [place], [address], [place]. tel: [phone] [facility], [address], [place], [place], [address] , [place] tel: [phone] [facility] ND OTHER SPECF VACNATION Dec-0 3-200 2 Cizek Xochitl. [address], [place], [place], [address], [place]. tel:[phone] [facility], [address], [place], [place], [address] , tel:[phone] [facility] HORMONE REPLACE POSTMENO Dec-2 6-200 0 Cizek Xochitl. [address], [place], [place], [address], [place]. tel:[phone] [facility], [address], [place], [place], [address] , tel: [phone] [facility] SCREEN-BLOOD DIS NOS 9-200 0 Cizek Xochitl. [address], [place], [place], [address], [place]. tel:[phone] [facility], [address], [place], [place], [address] , tel: [phone] [facility] SCREEN FOR HYPERTENSION 6-200 0 Cizek Xochitl. [address], [place], [place], [address], . tel:[phone] Family History Family Member Type Diagnosis Age At Onset No Information Immunizations Vaccine Date Status Comments [facility] Comirnaty COVID vaccine, promise-sucrose, 30mcg/0.3mL dose, 12 years and older administered Source: New Immuniza tion Record RSV, bivalent, protein subun it RSVpreF, diluent reconstituted, 0.5 mL, PF administered Source: Other Provider Fluzone High-Dose Trivalent, preservative free administered Source: Other Provid er Fluzone High-Dose, high dose , preservative free administered Source: New Immuniza tion Record Pneumococcal conjugate PCV20 administered Source: New Immunization Record Pfizer (Bivalent Booster) COVID Vac, 30mcg/0.3mL, 12+ years administered Source: Other Provid er Fluzone Quad, preservative free, split virus, 0.5mL dosage administered Source: New Immuniza tion Record Pfizer (Diluent Reconstitute d) COVID19 Vaccine, 0.3mL per dose, 2 doses, administered 21 days apart administered Source: Other Provid er Fluzone High-Dose, high dose , preservative free administered Source: New Immuniza tion Record Pfizer-BioNTech COVID19 Vaccine, 0.3mL per dose, 2 doses, administered 21 days apart administered Source: Other Provid er Pfizer-BioNTech COVID19 Vaccine, 0.3mL per dose, 2 doses, administered 21 days apart administered Source: Other Provid er Fluzone Quad, preservative free, split virus, 0.5mL dosage administered Source: New Immuniza tion Record Fluzone Quad, preservative free, split virus, 0.5mL dosage administered Note: employer ; Mirtha rce: Other Provider SHINGRIX (Zoster vaccine recombinant, adjuvanted) administered Source: New Imm unization Record SHINGRIX (Zoster vaccine recombinant, adjuvanted) administered Source: New Imm unization Record Pneumococcal conjugate PCV 13 administere d Source: New Immunization Record Tdap administered Source: New Imm unization Record influenza, injectable, quadrivalent, (3 years or older) administered Source: Other Provid er Payers Payer name Insurance type Covered republican ID Authoriza tion(s) [employer] [facility] PPO PLANS MB [id number] MEDICARE MB [id number] [employer] [facility] [employer] P[facility] PLANS MB [id number] MEDICARE MB [id number] [facility] OPEN ACCESS I II III CI [id number] [id number] MEDICARE MB [id number] [facility] OPEN ACCESS I II III CI [id number] S01 [facility] OPEN ACCESS I II III CI [id number] S01 [facility] OPEN ACCESS I II III CI [id number] S01 [facility] O CI [id number] [facility] O CI [id number] [facility] O CI [id number] [facility] CI [id number] Social History Type Description Quantity Date Captured Comments Alcohol Use Details Unknown Caffeine Use Details Unknown Tobacco Use Status No Information Smoking Status No Information Sex Female Chief Complaint And Reason For Visit No Information Reason For Referral Reason For Referral No Information Plan Of Treatment Date Type Action Status Goal Dietary manageme nt education, guidance, and counseling completed Referral Referred To: [facility] [address] [place] [address], [phone] Ordered: CT scan of chest with contrast ordered Referral Referred To: [address] [place] [address], [phone] Ordered: Screening mammography of both breasts ordered Referral Referred To: [address]
Rickey [address] [place] [address], [id number] [phone] Ordered: Colonoscopy, flexible; with biopsy, single or multiple Appointment date/timeframe: 11/05/2022 ordered Referral Referred To: [address]
Rickey [address] [place] [address], [id number] [phone] Ordered: Upper gastrointestinal endoscopy Appointment date/timeframe: 11/05/2022 ordered Referral Referred To: Robert Lagunas DO [address] [place] [address]
[address] [place], [address] [phone] Ordered: Referrals: Orthopedic Surgery. Robert Lagunas DO. Evaluation/diagnostic/treatment - Level 3 ordered Referral Referred To: [address] [place] [address], [id number] [phone] Ordered: VENECIA (ankle brachial index) ordered Referral Referred To: [address] [place] [address], [id number] [phone] Ordered: Complete Doppler ultrasound of arteries of both lower extremities ordered Referral Ordered: X-RAY EXAM OF KNEES Bilateral ordered Referral Ordered: Complete Doppler ultrasound of renal artery ordered Referral Ordered: Complete duplex scan of renal vessels ordered Referral Ordered: CT of right upper extremity without contrast Right Appointment date/timeframe: 10/09/2020 ordered Referral Referred To: [address] [place] [address], [id number] [phone] Ordered: MRI upper extremity oth than jt w/o contr matrl ordered Referral Ordered: X-RAY EXAM OF FOOT Right ordered Referral Referred To: [address] [place] [address], [id number] [phone] Ordered: Spot compression mammography of left breast Left breast ordered Referral Referred To: [address] [place] [address], [id number] [phone] Ordered: US breast left limited Left breast ordered Referral Referred To: [address] [place] [address], [id number] [phone] Ordered: SCREENING MAMMOGRAM (CAD) Bilateral breast Appointment date/timeframe: 07/19/2019 ordered Referral Referred To: [address] [place] [address], [id number] [id number] Ordered: CT angiography chest w/contrast/noncontrast Appointment date/timeframe: 07/19/2019 ordered Referral Ordered: CT abdomen and pelvis w contrast ordered Referral Referred To: [address] [place] [address]
[address], [id number] [id number] Ordered: COLONOSCOPY, Flexible, Proximal To Splenic, Diagnostic, Wor W/O Collection Of Sp Appointment date/timeframe: 06/01/2019 ordered Referral Referred To: [address] [place] [address]
[address], [id number] [phone] Ordered: EGD, FLEXIBLE, TRANSORAL, DIAGNOSTIC W/ COLLECTION OF SPECIMEN Appointment date/timeframe: 06/01/2019 ordered Referral Ordered: X-RAY EXAM OF FOOT Left ordered Referral Ordered: Chest Xray, 2 Views ordered Appointment Fraa Valencia BOOKED Future Order: Radiology Order Co mplete Doppler ultrasound of renal artery ([id number]), Sent on: Sent Future Order: Radiology Order Co mplete duplex scan of renal vessels ([id number]), Sent on: Sent Future Order: Radiology Order MR I upper extremity oth than jt w/o contr matrl ([id number]), Sent on: Sent History Of Present Illness Encounter Date Complaint History Of Yanira clayton Illness Chronic Conditions *See Chronic Conditions [facility] acute visit Patient presents for an ER follow up. She went to [place] [facility] on 04/17/2024 for shortness of breath, fatigue, and a productive cough. She was diagnosed with pneumonia and discharged with Zithromax, benzonatate, and ondansetron. She finished the zpak but states her symptoms have not improved. She continues to have extreme fatigue, weakness, productive cough, shortness of breath, chills, and chest pain with deep breathing. She has not been using any OTC medications. Chronic Conditions *See Chronic Conditions [facility] Chronic Conditions Patient prese nts for an ER follow up. She went to [place] [facility] on 04/17/2024 for shortness of breath, fatigue, and a productive cough. She was diagnosed with pneumonia and discharged with Zithromax, benzonatate, and ondansetron. She finished the zpak but states her symptoms have not improved. She continues to have extreme fatigue, weakness, productive cough, shortness of breath, chills, and chest pain with deep breathing. She has not been using any OTC medications.She monitors her o2 at home and states it has been 92% and above. Chronic Conditions *See Chronic Conditions [facility] Chronic Conditions *See Chronic Conditions [facility] Chronic Conditions *See Chronic Conditions [facility] Chronic Conditions *See Chronic Conditions [facility] Medicare preventive A Health Ris k Assessment has been performed and reviewed. Functional Status: (Functional status has not changed) on 10/22/2023. SLUMS assessment completed, with a total score of 29, Normal. Cognitive Status: (Cognitive status has not changed) on 10/22/2023. The ''Up and Go'' test took less than 30 seconds andthe patient does not need help with activities of daily living. The patient is not at risk for falls. The patient has not fallen in the last year. The fall(s) did not result in injury. Patient's activity level is moderate. Patient exercises occasionally. The patient has smoke detectors, carbon monoxide detectors, gas heating in the home. The patient does not have firearms in the home. Patient's home has not been tested for radon. Patient reports using a seatbelt in vehicles. Patient reports a gluten-free diet. Patient denies recent weight gain. Patient denies recent weight loss. Patient does not take calcium. Patient reports taking Vitamin D. Patient does not take a multivitamin. Patient does not take folic acid. Relevant history is negative for alcohol use. Screening services were reviewed, no changes made. chronic conditions *See Chronic Conditions [facility] Chronic Conditions *See Chronic Conditions [facility] Chronic Conditions *See Chronic Conditions [facility] Chronic Conditions *See Chronic Conditions [facility] Chronic Conditions *See Chronic Conditions [facility] Chronic Conditions *See Chronic Conditions [facility] Chronic Conditions *See Chronic Conditions [facility] Chronic Conditions *See Chronic Conditions [facility] acute visit Chief complaint: knee pain. Saw ortho 2 days ago. Had a lot of fluid on her right knee. This was drained. A medication was ordered for her knees, but it has not arrived yet. Knee swelling is better, but very painful to go up and down the stairs. Taking MS Contin every 12 hours, but not having any relief.Had an EGD yesterday. Started on pantoprazole after the procedure for esophagitis. Told her blood pressure was very high and to follow up with her PCP. Running high at home. 140/90s. Medicare preventive A Health Ris k Assessment has been performed and reviewed. The patient has not felt depressed and has had interest and pleasure doing things recently. Functional Status: (Functional status has not changed) on 09/29/2022. SLUMS assessment completed, with a total score of 22, Mild Neurocognitive Disorder. Cognitive Status: (Cognitive status has not changed) on 09/29/2022. The ''Up and Go'' test took less than 30 seconds andthe patient does not need help with activities of daily living. The patient is not at risk for falls. The patient has fallen 1 times in the last year. The fall(s) resulted in injury. Details: right wrist fracture. Patient's activity level is moderate. Patient exercises occasionally. The patient has smoke detectors, carbon monoxide detectors, gas heating in the home. The patient does not have firearms in the home. Patient's home has not been tested for radon. Patient reports using a seatbelt in vehicles. Patient reports a gluten-free diet. Patient denies recent weight gain. Patient denies recent weight loss. Patient does not take calcium. Patient reports taking Vitamin D. Patient does not take a multivitamin. Patient does not take folic acid. Relevant history is negative for alcohol use. Screening services were reviewed and updated. Chronic Conditions *See Chronic Conditions [facility] acute visit Chief complaint: diarrhea. Associated symptoms include diarrhea, fatigue and nausea. Pertinent negatives include abdominal pain, chest pain, cough, dyspnea, headache, fever and chills.Woke up yesterday with severe diarrhea. Watery stools. 6-7 BM/day. Once she cleared out, was exhausted and weak for the rest of the day. Today, just tired. Poor energy. Trying to eat and drink. Lower abdominal cramping, but no pain. No blood in stool. No fever or chills. No ill contacts.Has HTN and CHD. Worries about her kidneys. No chest pain or headache. No edema or frothy urine. Chronic Conditions *See Chronic Conditions [facility] Chronic Conditions *See Chronic Conditions [facility] Chronic Conditions *See Chronic Conditions [facility] Chronic Conditions *See Chronic Conditions [facility] acute visit Chief complaint: ankle pain. Painful lump and redness around her right ankle. This began 3 days ago. Tender to touch. Very warm to touch. No injury. Taking Tylenol and applying ice. Increased swelling after standing all day at work.Has hypertension. Taking meds. No chest pain or headache. Chronic Conditions *See Chronic Conditions [facility] Chronic Conditions *See Chronic Conditions [facility] Chronic Conditions *See Chronic Conditions [facility] Chronic Conditions *See Chronic Conditions [facility] Chronic Conditions *See Chronic Conditions [facility] Chronic Conditions *See Chronic Conditions [facility] acute visit Chief complaint: right upper arm pain. Pertinent negatives include fatigue, fever, chills, joint pain and joint swelling.Right arm pain for the past 12 hours. Yesterday, she carried at least 30 cases of soda. Last night, noticed discoloration in her right upper arm. Much worse this afternoon. Her upper arm is swollen and it hurts to lift or bend. Very bruised and getting worse. No hand numbness or tingling. Taking oxycodone 20mg TID per pain management. Has HTN and stage 3 CKD. No chest pain or headache. Denies edema or frothy urine. Chronic Conditions *See Chronic Conditions [facility] Chronic Conditions *See Chronic Conditions [facility] Chronic Conditions *See Chronic Conditions [facility] Chronic Conditions *See Chronic Conditions [facility] Chronic Conditions *See Chronic Conditions [facility] Chronic Conditions *See Chronic Conditions [facility] acute visit Chief complaint: left foot pain. Symptoms started 1 weeks ago 63 y/o female presents wtih c/o left foot pain. Shes states it has been about a week and a half since the pain started. Foot is not painful at rest, only painful when she applies pressure to the foot. Has recently got a pair of [employer] shoes and has been trying to ease into wearing these. She is on her feet constantly at work. Is taking naproxen daily along with Oxycontin. Has not smoked in 6 months, feels much better. She has a history of osteopenia. Chronic Conditions *See Chronic Conditions [facility] Chronic Conditions *See Chronic Conditions [facility] Chronic Conditions *See Chronic Conditions [facility] Functional Status Date Functional Assessmen t No Information Instructions Date Instruction Additional Infor duran Right TKA in 3 month s after infection has resolved and improving stamina. Continue with work and exercise. Related to Bilateral primary osteoarthritis of knee Check the BMP today. Related to Stage 3a chronic kidney disease Continue with good B P control. Noted on the prior abdominal CT in 2019. Related to Atherosclerosis of aorta BP is under reasonab le control and continue with the present regimen. Related to Hypertensive chronic kidney disease with stage 1 through stage 4 chronic kidney disease, or unspecified chronic kidney disease As above. Repeat the Chest CT. R elated to Thoracic aortic aneurysm, without rupture, unspecified As above. Schedule Chest CT. Rel ated to Right lower lobe lung mass RLL infiltrate last month. Fever and elevated white count. Much improved with less shortness of breath and no fever. Schedule follow up Chest CT and repeat the CBC today. Good hydration. Related to Acute pneumonia Improving with less shortness of breath. Continue with the present regimen. Related to Other emphysema Repeat the CBC today. Related to Iron deficiency anemia, unspecified iron deficiency anemia type Albuterol sent to [facility].Use this to help with shortness of breath as needed.Call us if your oxygen level is less than 90% Related to Other emphysema Your blood pressure is slightly lower in office today.Monitor at home and call us if you are <100/80. Make sure you are hydrating well with at least 60 ounces of water daily. Related to Essential (primary) hypertension We will call you wit h xray results.Antibiotics and steroids sent to pharmacy.Take as prescribed, make sure to complete entire course of antibiotics.Call us if you are having any severe side effects from this medication. Take with food and use a probiotic or have yogurt while you are taking.Nausea medication sent to pharmacy to use as needed if you are feeling nauseous while on this. Related to Acute pneumonia Insert 1 gram of cre am vaginally twice weekly. Related to Vaginal dryness Will check blood counts. Related to Iron deficiency anemia, unspecified iron deficiency anemia type Doing well with Trelegy. Related to Other emphysema Will check cholester ol levels today. Recommend healthy diet and exercise. Related to Atherosclerosis of aorta Ears flushed in offi ce today. Recommend using Debrox drops, available over the counter, to soften ear wax and allow it to drain. Place 5-10 drops in the ear for 3-4 days as needed. Related to Impacted cerumen of both ears Treated with liquid nitrogen in office. Related to Actinic keratosis Will check kidney fu nction today, continue to hydrate well. Related to Stage 3a chronic kidney disease Blood pressure is we ll controlled today. Please continue your current medications. Call our office if you have blood pressure readings consistently above goal, 140/90 or higher. Related to Hypertensive chronic kidney disease with stage 1 through stage 4 chronic kidney disease, or unspecified chronic kidney disease Start doxycycline, t olaf 1 tablet twice daily for 7 days to treat. Can try warm compresses. Call if not improving. Related to Folliculitis Recommend [place] nasal gel to help with this. Related to Nasal sore Blood pressure impro ving, continue lisinopril and amlodipine daily. Monitor blood pressure and call Wednesday with readings. Related to Hypertensive chronic kidney disease with stage 1 through stage 4 chronic kidney disease, or unspecified chronic kidney disease Kidney function stab le when recently checked. Hydrate well. Related to Stage 3a chronic kidney disease Blood pressure is el evated in office, to [facility]. Related to Hypertensive chronic kidney disease with stage 1 through stage 4 chronic kidney disease, or unspecified chronic kidney disease Will need labs. Related to Stage 3a chronic kidney disease Recommend Colace, 1- 2 capsules once daily while on hydrocodone to prevent constipation. Continue to hydrate well. Related to Intermittent constipation Will repeat urine te sting, complete cipro. Related to Acute cystitis without hematuria Will check labs and swab for COV ID. Related to Fatigue, unspecified type Will swab for COVID. Related to Symptoms of upper respiratory infection (URI) Blood pressure is we ll controlled today. Please continue your current medications. Call our office if you have blood pressure readings consistently above goal, 140/90 or higher. Related to Hypertensive chronic kidney disease with stage 1 through stage 4 chronic kidney disease, or unspecified chronic kidney disease Will recheck kidney function today, continue to hydrate well. Related to Stage 3a chronic kidney disease Recent dehydration a nd UTI. Similar situation a few months ago. Increase po fluids and rest and okay to return to work next week. Related to Acute cystitis without hematuria Stable on the BDE year. Repeat in 2025. Daily walking and Vitamin D. Related to Osteopenia of multiple sites Stable. Related to Stage 3a chronic kidney disease Doing well. Normal [place] testing. Schedule mammogram. Follow up in 3 months. Flu shot and BP check again then. Related to Medicare annual wellness visit, subsequent Noted on prior Chest CT in 05/2023 and continue with the present meds. Related to Atherosclerosis of aorta Stable on the Chest CT in 05/2023. Continue with improved BP control. Related to Thoracic aortic aneurysm, without rupture, unspecified BP is under much bet ter control. Continue on the Lisinopril only. Stop the Bystolic and Nebivolol. BP check in 2 weeks and bring your home BP cuff to calibrate. Follow up in 3 months. Related to Hypertensive chronic kidney disease with stage 1 through stage 4 chronic kidney disease, or unspecified chronic kidney disease GFR 31 on Wednesday. De creased. Increase po fluids and repeat the BMP on Wednesday. Follow up then. Related to Stage 3a chronic kidney disease BP is under good con trol and continue with the present meds. Related to Hypertensive chronic kidney disease with stage 1 through stage 4 chronic kidney disease, or unspecified chronic kidney disease Low BP again today. Has given 2 liters IVF and BP up to 130. Continue to hold the BP meds and follow up on Wednesday. Related to Hypotension, unspecified hypotension type Check the urinalysis and culture today. Related to Urinary frequency Repeat the CBC and ferritin. Rel ated to Iron deficiency anemia, unspecified iron deficiency anemia type Stable. Lungs are cl ear. Same regimen. Related to Other emphysema As above. Hold the B P meds for now. Reassess in the AM. Related to Hypertensive chronic kidney disease with stage 1 through stage 4 chronic kidney disease, or unspecified chronic kidney disease Low BP today and not eating well. Stressed. Check CBC and CMP and ferritin. One liter of IVF given. SBP improved to 104. Increase po fluids. Hold all BP meds and follow up tomorrow AM. Repeat BP and may need more fluids. Work note for the week. Related to Hypotension, unspecified hypotension type Check the CMP and in crease po fluids. Related to Stage 3a chronic kidney disease Trial of Trelegy 200 mcg and hold the Spiriva and the Advair. Call with update in 2-3 weeks. Related to Other emphysema Repeat the CBC and ferritin toda y. Related to Iron deficiency anemia, unspecified iron deficiency anemia type BP repeated and is u nder good control. Increase the Bystolic to 30 mg ( 1.5 tabs) daily, #135, 1 rf. Doxazosin 4 mg po twice daily, #180, 1 rf. Follow up in 4 months. Related to Hypertensive chronic kidney disease with stage 1 through stage 4 chronic kidney disease, or unspecified chronic kidney disease Stable. GFR <59. Goo d hydration and improve BP control. Related to Stage 3a chronic kidney disease BP is elevated but r ecent illness. Same meds and follow up in 1 month. Related to Hypertensive chronic kidney disease with stage 1 through stage 4 chronic kidney disease, or unspecified chronic kidney disease Check the BMP and in crease po fluids as noted. Related to Stage 3a chronic kidney disease Check the BMP today. Related to Hyponatremia Check the CBC today. Related to Leukocytosis, unspecified type Recent hospitalizati on with likely urosepsis. Mental status changes and WBC >22 K. Discharged on 05/23 and still tired and weak. Repeat the BMP and CBC today. Increase po fluids. Repeat the urine culture. Complete the course of antibiotics and steroids. Follow up on the blood culture report. Follow up in one month. Work note given. Related to Acute cystitis without hematuria Check the BMP today. Related to Hypokalemia Check the CBC and fe rritin. Continue with the iron tablets daily. Related to Iron deficiency anemia, unspecified iron deficiency anemia type Doing well. Lungs ar e clear. RSV and covid vaccine this fall. Continue with the inhalers. Related to Other emphysema Check the BMP today. Related to Stage 3a chronic kidney disease Upcoming left knee a rthroscopy. Will review the labs and clear for the upcoming surgery. Related to Bilateral primary osteoarthritis of knee The BP is under good control and continue with the present meds. Check the EKG today. Follow up in 4 months. Related to Hypertensive chronic kidney disease with stage 1 through stage 4 chronic kidney disease, or unspecified chronic kidney disease Stable. Good hydrati on and same meds. Related to Stage 3a chronic kidney disease Ongoing knee pain. C omplete the series of injections with ortho and may need to consider PT. Related to Bilateral primary osteoarthritis of knee Lungs are clear toda y. Flu shot today and continue with the present inhalers. Keep follow up appt in 01/2023. Related to Other emphysema BP is under reasonab le control and continue with the present regimen. Related to Hypertensive chronic kidney disease with stage 1 through stage 4 chronic kidney disease, or unspecified chronic kidney disease COPD flare several w eeks ago with mild exertional hypoxia. Repeat the ambulatory pulse ox. Improving and repeat in 6 weeks. Related to Hypoxia Increased shortness of breath and colonoscopy recently cancelled. Hypoxic today. COPD flare and stress is contributing. Prednisone taper 20 mg po daily, #10,0 rf. Continue with the Spiriva and add Advair Diskus 1 puff po twice daily, #1, 1 rf. Refill the Albuterol HFA. Follow up in 3 - 4 weeks. Flu shot then. Related to Other emphysema Send for consult notes from alayna corral. Related to Pain in left knee As noted. 87% with w alking today. Check the CXR today. Clear and no sign of infection or pneumonia. Related to Hypoxia A little high. Let's increase lisinopril to daily use and continue doxazosin and Bystolic. Call in 2 weeks with readings. Related to Hypertensive chronic kidney disease with stage 1 through stage 4 chronic kidney disease, or unspecified chronic kidney disease GFR <59. Hydrate Related to Stag e 3a chronic kidney disease While awaiting injec tions, prednisone 40mg x 1 week. Continue pain management regimen. Related to Pain in left knee Noted on EGD. Continue pantopraz ole. Related to Gastroesophageal reflux disease with esophagitis without hemorrhage See #3 Related to Pain in right knee Medication management Decreased score on t he SLUMs testing. Will repeat the exam at the next visit. Declined any increase in the pain meds and will begin weaning. Related to Mild cognitive impairment Bilateral ear wash p erformed and tolerated the procedure well on the left. Observe on the right as only able to partially remove. Related to Impacted cerumen, bilateral Continue with the pr esent range of motion exercises. Related to Right wrist fracture, sequela Medicare questionair e reviewed and completed. Mammogram and BDE up to date. Healthy diet and exercise. Related to Medicare annual wellness visit, subsequent Stable. Observe. Related to Sandra le purpura Stable. Same regimen. Prevnar to day. Related to Other emphysema Stable. Check the PTH today. Rel ated to Stage 3a chronic kidney disease Continue with the pr esent BP control. Related to Atherosclerosis of aorta The BP is under good control and continue with the present regimen. Recent labs good. Related to Hypertensive chronic kidney disease with stage 1 through stage 4 chronic kidney disease, or unspecified chronic kidney disease Noted on the recent BDE and recent wrist fracture. Check the Vitamin D and PTH today. Related to Osteopenia of multiple sites Urinary Incontinence Counseled on weight reduction Counseled on dietary changes GFR <59. Related to Stage 3a chronic kidney disease Stable. No orthostat ic hypotension. Recheck BMP to assess hydration status. Related to Hypertensive chronic kidney disease with stage 1 through stage 4 chronic kidney disease, or unspecified chronic kidney disease Exam is unremarkable . This may be viral. Let's try a BRAT diet and Pedialyte or low calorie Gatorade for the few days. 1L of NS given. Encouraged to push fluids. Check CBC. Related to Diarrhea, unspecified type Medication management Continue with good B P control and repeat the fasting labs in 3-4 months. Related to Peripheral vascular disease Still having some sh ortness of breath with the Anoro. Stop that inhaler and try samples of Trelegy. Follow up in 3-4 months for annual physical and fasting labs. Related to Other emphysema Doing well. Check fa sting labs at the next office visit. Related to Atherosclerosis of aorta BP is improving. Rec ent BMP shows much improved renal function. Continue with the present meds. Follow up in 3 - 4 months for BP check and physical. Schedule mammogram and BDE. Related to Hypertensive chronic kidney disease with stage 1 through stage 4 chronic kidney disease, or unspecified chronic kidney disease Improved. Same meds. Check the CMP at the next visit. Good hydration. Related to Stage 3a chronic kidney disease Intermittent right b uttock and right leg pain. Exercises as noted and check the lumbar spine xray today. Reassess next month. Related to Lumbar radiculopathy As above. Related to Other chronic pain As above. Exercises demonstrated and discussed. Related to Pain in left knee Repeat the BMP. Related to Stage 3a chronic kidney disease Increased swelling i n the right knee. Injected and tolerated the procedure well. Tylenol as needed. Related to Pain in right knee BP repeated and is 1 58/100. Increase the Doxazosin to 4 mg, 2 tablets po daily, #180, 2 rf. Follow up appt next month. Related to Hypertensive chronic kidney disease with stage 1 through stage 4 chronic kidney disease, or unspecified chronic kidney disease Ongoing right thigh pain. Normal VENECIA and arterial US. Likely secondary to underlying DDD of the lumbar spine. Lower back exercises discussed and demonstrated. Related to Lumbar radiculopathy Improving with brianna r BP control. Normal recent renal US. Continue with the same regimen and good hydration. Related to Stage 3a chronic kidney disease BP is under much bet ter control and continue with the present meds for now. Follow up in 6 months. Related to Hypertensive chronic kidney disease with stage 1 through stage 4 chronic kidney disease, or unspecified chronic kidney disease Stable. Continue wit h good BP control. Related to Atherosclerosis of aorta Doing well and yunior nue with the present meds. Related to Hypertensive chronic kidney disease with stage 1 through stage 4 chronic kidney disease, or unspecified chronic kidney disease Improved and check t he BMP today. Good hydration. Related to Stage 3a chronic kidney disease Cool toes and thicke gianna nails. Having some pain in the right foot and thigh. Schedule bilateral UE VENECIA and arterial doppler. Related to Peripheral vascular disease Reassured. Recommend Naproxen 500mg twice daily x 2 weeks and compression stocking. OK to continue ice for additional relief. Call if this becomes worse. We will reassess at upcoming visit. Related to Superficial phlebitis Well controlled with present regimen. No changes today. Related to Benign essential hypertension Medication management GFR <59 and check the CMP today. Related to Stage 3a chronic kidney disease Likely the cause of the nausea and poor appetite and dehydration. IVF and continue with the Ondansetron as needed. Repeat the urine culture. Work release and follow up in 2 weeks. Related to Acute UTI Very elevated and re cent trip to the ER. Now with adding HCTZ and with UTI, lower. Hold meds as above. IVF today and call with update on Wednesday. Related to Benign hypertensive renal disease Hold the HCTZ and ho ld the Bystolic today and tomorrow and resume on Wednesday. Check the CBC and CMP today. IVF today and follow up by phone on Wednesday. Okay for work release through next Wednesday. Related to Dehydration Continue with the ne ck exercises and refilled her pain meds today. Related to DDD (degenerative disc disease), cervical Stable. Related to Other emphysema Improved but now BP elevated again. Check the BMP today. Related to Stage 3a chronic kidney disease BP is elevated today . Repeated and a little improved but still high. Stop the Atenolol and change to Bystolic 10 mg po daily, #30, 0 rf. Check BP daily and call with the readings in one week. Adjust the dosage as needed. Follow up in 2 months. Related to Benign hypertensive renal disease Worsening knee pain. Injected bilateral knees and tolerated the procedure well. Check bilateral knee xrays today. Related to Bilateral primary osteoarthritis of knee Ongoing chronic and severe neck pain and headache. Refilled Oxycontin 20 mg po three times daily as needed for one time only, #90, 0 rf. She is to follow up with new pain management physician soon. Related to DDD (degenerative disc disease), cervical Refill the Anoro. Related to Oth er emphysema Repeat the BMP today. Related to Stage 3a chronic kidney disease BP repeated and is 1 44/98. Increase the Doxazosin to 4 mg po daily, #90, 1 rf. Check BMP to reassess the renal function. Schedule bilateral renal artery US to rule out renal artery stenosis. Follow up in 3 months. Related to Benign hypertensive renal disease Doing well and yunior nue with improving the BP control. Related to Thoracic aortic aneurysm without rupture Check the BMP today. Repeat in 3 months. Related to Stage 3a chronic kidney disease Repeat BP is 144/92. Continue with the present meds and will add Doxazosin 2 mg po nightly, #90, 1 rf. Call with the BP readings in 3-4 weeks. Flu shot today. Follow up in 3 months. Related to Benign hypertensive renal disease Check the BMP today. Related to Stage 3a chronic kidney disease The BP Is elevated. Increase the Atenolol to 100 mg po daily, #90, 1 rf. Check the BMP. Follow up in 3 months. Related to Benign hypertensive renal disease Doing well. Flu shot in the fall . Related to Other emphysema Slowly improving. Av oid heavy lifting. Related to Tear of right biceps muscle, subsequent encounter Schedule CT of the right arm. Re lated to Tear of right biceps muscle, subsequent encounter Stable and noted on the prior Chest CTs. Related to Atherosclerosis of aorta Stable on the recent Chest CT. Need to improve BP control. Increase meds as noted above and follow up in 6-8 weeks. Related to Thoracic aortic aneurysm without rupture GFR <59 and good hyd ration and repeat the BMP in 2 months. Related to Stage 3a chronic kidney disease The BP Is much highe r today. Increase the Lisinopril/HCTZ to twice daily, #180, 1 rf. Call with the BP readings in 3 weeks and follow up appt in 6-8 weeks. Practice social distancing to limit your exposure to others who may have the virus but do not have symptoms. This means stay at home. If you do go out, stay at least 6 feet away from others such as in line at the grocery store. Even if you stay at home, use hand tray filler and wash your hands frequently. Especially when you get your mail, go to the store, take the trash out and get deliveries. Other people touch these things and the virus can live on objects for several days. Avoid touching your face as this may bring the virus from your hands to a mucosal surface where it can infect your body. Related to Benign hypertensive renal disease Stable. Related to Senil e purpura Recommend ice and re st. Upper arm wrapped with SERGE bandage for support. Recommend you discuss your acute pain with your specialist. Work note given. Call next week with update. Related to Tear of right biceps muscle, initial encounter GFR <59. Hydrate. Related to Sta ge 3a chronic kidney disease Reasonable control. Continue present regimen. Related to Benign hypertensive renal disease Medication management Doing well and yunior nue with the present inhalers. Okay to wear the shield when needed at work. Related to Other emphysema Under good control a nd continue with the present meds. Related to Chronic kidney disease, stage 3 unspecified Doing well and yunior nue with the present meds. Follow up in 6 months. Related to Hypertensive chronic kidney disease with stage 1 through stage 4 chronic kidney disease, or unspecified chronic kidney disease Dietary management e ducation, guidance, and counseling Related to Body mass index (BMI) 26.0-26.9, adult Giving encouragement to exercise Related to Body mass index (BMI) 26.0-26.9, adult Mild swelling and wa rm. Check the uric acid level. Check the right foot xray. Related to Foot pain, right Doing well. Same reg imen. Flu shot today. Practice social distancing to limit your exposure to others who may have the virus but do not have symptoms. This means stay at home. If you do go out, stay at least 6 feet away from others such as in line at the grocery store. Even if you stay at home, use hand tray filler and wash your hands frequently. Especially when you get your mail, go to the store, take the trash out and get deliveries. Other people touch these things and the virus can live on objects for several days. Avoid touching your face as this may bring the virus from your hands to a mucosal surface where it can infect your body. Related to Other emphysema Stable. and repeat t he Chest CT next year. Related to Thoracic aortic aneurysm without rupture BP is high today. Re peated and is 156/100. Check the BMP today. Continue with the Lisinopril and add Atenolol 50 mg po daily, #30, 1 rf. Follow up in 6 weeks. Related to Hypertensive chronic kidney disease with stage 1 through stage 4 chronic kidney disease, or unspecified chronic kidney disease Check the BMP and PTH today. Rel ated to Chronic kidney disease, stage 3 (moderate) Check the Vitamin D level today. Related to Vitamin D deficiency 4 day history of itc hy and sometimes painful rash. No vesicular lesions. Medrol dosage pack. Continue to apply Caladryl lotion. Call if not resolving.Telehealth visit. I provided this telemedicine visit with audio. The patient/parent/guardian gave informed consent for the use of telemedicine for this visit. Practice social distancing to limit your exposure to others who may have the virus but do not have symptoms. This means stay at home. If you do go out, stay at least 6 feet away from others such as in line at the grocery store. Even if you stay at home, use hand tray filler and wash your hands frequently. Especially when you get your mail, go to the store, take the trash out and get deliveries. Other people touch these things and the virus can live on objects for several days. Avoid touching your face as this may bring the virus from your hands to a mucosal surface where it can infect your body. Related to Allergic dermatitis Noted on the prior Chest CT. Rel ated to Atherosclerosis of aorta Doing well. Related to Senil e purpura Stable. Repeat the C hest CT with contrast. Related to Thoracic aortic aneurysm without rupture Doing well and yunior nue off of the cigarettes. Related to Other emphysema BP repeated and is u nder good control. Same meds. Check the BMP today. Follow up in 6 months. Related to Essential hypertension Mild lower abdominal pain. Check the urinalysis and CMP and CBC. Schedule colonoscopy. Continue with increased fiber and po fluids. Call if the pain should worsen. Related to Right lower quadrant abdominal pain Continue with no smo sharmila. Continue with the present inhalers. Related to Other emphysema The BP is elevated. Repeated and is 130/92. Increase the Lisinopril/HCTZ 20/25 one tab po daily, #90, 1 rf. Check the CMP today. Follow up in 3 months. Related to Essential hypertension As noted above. Stop the Amlodip ine. Related to Ankle edema, bilateral Doing well and yunior nues off of cigarettes. Okay to continue with the Nicoderm patches. Related to Other emphysema BP is still a little elevated and having some ankle swelling. Stop the Amlodipine and Triamterene/HCTZ and begin Lisinopril/ HCTZ 10/12.5 mg po daily, #30, 1 rf. Call with the BP in 2 weeks and follow up in 2 months. Check the BMP then. Related to Essential hypertension Lamisil 250 mg po da nishant, #90, 0 rf. Will check the CMP today. Reinspect in a few months. Related to Onychomycosis X-ray of your left f oot was normal today. Suspect the pain is due to your new shoes. Recommend taking a break from these shoes for the next week or two, apply ice to the foot 2-3 times daily for 10-15 minutes to reduce pain and inflammation. Contact the office if this pain persists or worsens. Related to Left foot pain Congratulations on 1 4 days of not smoking! Refill the Nicoderm 21 , #30, 1 rf. Related to Tobacco use Noted on the Chest C T in 12/21 and repeat next month. Related to Lung nodules The BP is under good control and continue with the present meds. Related to Essential hypertension Stable. Observe. Related to Sandra le purpura BP is elevated and r epeated and is 152/100. Increase the Amlodipine to 5 mg po daily and keep follow up appt in June. Low salt diet and exercise. Related to Essential hypertension Stable. Observe. Related to Sandra le purpura BP is repeated and i s 142/84. Check BP again at follow up visit. Related to Essential hypertension COPD flare and begin Anoro one puff po daily and 1 month supply of samples given. Okay to use the ProAir HFA 2 puffs po every 4 hours as needed for cough or shortness of breath. Related to Other emphysema Recent COPD flare an d pneumonia noted on CXR at . Complete the antibiotic and steroids. Follow up in 3 weeks and repeat the CXR then. Related to Pneumonia of both lower lobes due to infectious organism Assessments Type Assessment Date No Information Patient Care Teams Name Effective Dates (start - stop) Status Members No Information
--- OUTSIDE RECORDS SUMMARY | 2024-05-19 09:02 | XMS_ITS | Clinical Summary ---
Author Organization [facility] Address [address] [place] [address] Care Team Providers Care Profiler Operator Name Role Phone Xochitl Duarte MD Primary Care Provider [phone] Allergies Active Allergy Reactions Criticality Noted Date Comments Indomethacin Nausea Only 04/09/2021 Medications ANORO ELLIPTA 62.5-25 MCG/INH inhaler INHALE 1 PUFF BY MOUTH AT THE SAME TIME EVERY DAY 04/02/2021 Active OXYCONTIN 20 MG 12 hr abuse-deterrent tablet Take 20 mg by mouth every 8 (eight) hours. 03/07/2021 Active naproxen 500 MG tablet TAKE 1 TABLET BY MOUTH TWICE DAILY EVERY DAY WITH FOOD 11/27/2020 Active lisinopril 40 MG tablet Take 20 mg by mouth 2 (two) times daily. 02/26/2021 Active doxazosin 4 MG tablet Take 4 mg by mouth daily. 03/11/2021 Active cyclobenzaprine 10 MG tablet 04/07/2021 Active atenolol 100 MG tablet Take 100 mg by mouth daily. 03/28/2021 Active ALPRAZolam 0.5 MG tablet Take 0.5 mg by mouth 2 (two) times daily as needed. 04/03/2021 Active acetaminophen 500 MG tablet Take 500 mg by mouth every 6 (six) hours as needed for Pain. Active Active Problems No known active problems Family History Medical History Relation Comments No Known Problems Brother No Known Problems Mother Multiple Sclerosis Sister 1 No Known Problems Sister 2 No Known Problems Sister 3 Relation Status Comments Brother Alive Mother Alive Sister 1 Sister 2 Alive Sister 3 Alive Social History Tobacco Use Types Packs/Day Years Used Date Smoking Tobacco: Former Smokeless Tobacco: Never Tobacco Cessation:Counseling Given: No Alcohol Use Standard Drinks/Week Comments Not Currently 0 (1 standard drink = 0.6 oz pur e alcohol) PHQ-2 Answer Date Recorded PHQ-2 Score - If the patient scores above 3, please move on to questions 3-9 0 04/09/2021 Comments No Sex and Gender Information Value Date Recorded Sex Assigned at Not on file Legal Sex Female 5:11 PM CDT Gender Identity Not on file Sexual Orientation Not on file 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 Not on file Not on file Last Filed Vital Signs Vital Sign Reading Time Taken Comments Blood Pressure 150/90 04/15/2021 2:01 PM [employer]USH OPERATOR Pulse 58 04/15/2021 2:00 PM BRUSH OPERATOR Temperature 36.7 C (98.1 F) 04/15/2021 2:00 PM BRUSH OPERATOR Respiratory Rate 24 04/15/2021 2:00 PM BRUSH OPERATOR Oxygen Saturation 96% 04/15/2021 2:00 PM BRUSH OPERATOR Inhaled Oxygen Concentration - - Weight 74.3 kg (163 lb 12.8 oz) 04/15/2021 2:02 PM BRUSH OPERATOR Height 170.2 cm (5' 7 ) 04/15/2021 2:02 PM BRUSH OPERATOR Body Mass Index 25.65 04/15/2021 2:02 PM BRUSH OPERATOR Plan of Treatment Health Maintenance Due Date Last Done Comments Colorectal Cancer Screening Colonoscopy (10 Years) 1957 Hepatitis C 1975 DTaP, Tdap and Td Vaccines ( 1 - Tdap) 1976 Mammogram Screening 1997 Zoster Vaccines (2 of 2) 09/12/2018 07/18/2018 Dexa Scan (General) 2022 Pneumococcal Vaccine: 65+ Years (1 of 1 - PCV) 2022 COVID-19 Vaccine (4 - 2023-2 5 season) 2023 03/09/2021, 06/21/2020, 06/02/2020 Influenza Adult (#1) 2024 12/13/2019, 01/03/2019 RSV Immunization or 60+ Years (1 - 1-dose 75+ series) 2032 Meningococcal B Vaccine Aged Out No l onger eligible based on patient's age to complete this topic Meningococcal Vaccine Aged Out No wanda james eligible based on patient's age to complete this topic RSV Immunizations Under 20 Months Aged Out No longer eligible b ased on patient's age to complete this topic Insurance [employer] Care Teams Profiler Operator Relationship Specialty Start Date End Date Xochitl Duarte MD [address] [place] [id number] PCP - General 02/18/21
--- OUTSIDE RECORDS SUMMARY | 2024-05-19 09:02 | XMS_ITS | Referral Summary ---
Author Organization [facility] [address] Address [facility] [place] [address] Care Team Providers Care Insight Leader Name Role Phone No, Physician Primary Care Provider [phone] Encounters Date Type Department Care Team Description 03/10/2024 10:11 AM TAPE RECORDING MACHINE OPERATOR - 03/10/2024 11:59 PM TAPE RECORDING MACHINE OPERATOR Hospital Encounter [facility] [address] [place] [address] Pain in joint of left knee; Effusion, left knee Discharge Disposition: Discharge to home or self care from Last 3 Months Allergies Active Allergy Reactions Criticality Noted Date Comments Indomethacin Nausea only Low 04/09/2021 Medications umeclidinium-mandy anteroL (Anoro Ellipta) 62.5-25 mcg/actuation blister with device INHALE 1 PUFF BY MOUTH AT THE SAME TIME EVERY DAY 04/02/2021 Active oxyCODONE ER (OxyCONTIN) 20 mg 12 hr abuse-deterrent tablet Take 20 mg by mouth every 8 (eight) hours 03/07/2021 Active naproxen (NAPROSYN) 500 mg tablet TAKE 1 TABLET BY MOUTH TWICE DAILY EVERY DAY WITH FOOD 11/27/2020 Active lisinopriL (PRINIVIL,ZESTRI L) 40 mg tablet Take 20 mg by mouth 2 (two) times a day 02/26/2021 Active atenoloL (TENORMIN) 100 mg tablet Take 100 mg by mouth daily 03/28/2021 Active ALPRAZolam (XANAX) 0.5 mg tablet Take 0.5 mg by mouth 2 (two) times a day as needed 04/03/2021 Active acetaminophen (TYLENOL) 500 mg tablet Take 500 mg by mouth every 6 (six) hours as needed Active Active Problems No known active problems Social History Tobacco Use Types Packs/Day Years Used Date Smoking Tobacco: Never Assessed Comments Unknown Sex and Gender Information Value Date Recorded Sex Assigned at Not on file Legal Sex Female 2:25 AM TAPE RECORDING MACHINE OPERATOR Gender Identity Not on file Sexual Orientation Not on file Last Filed Vital Signs Vital Sign Reading Time Taken Comments Blood Pressure 134/96 04/24/2021 9:01 AM TAPE RECORDING MACHINE OPERATOR Pulse 54 04/24/2021 8:53 AM TAPE RECORDING MACHINE OPERATOR Temperature 36.3 C (97.4 F) 04/24/2021 8:53 AM TAPE RECORDING MACHINE OPERATOR Respiratory Rate 16 04/24/2021 8:53 AM TAPE RECORDING MACHINE OPERATOR Oxygen Saturation 99% 04/24/2021 8:53 AM TAPE RECORDING MACHINE OPERATOR Inhaled Oxygen Concentration - - Weight 68 kg (150 lb) 03/10/2024 10:36 AM TAPE RECORDING MACHINE OPERATOR Height 167.6 cm (5' 6 ) 03/10/2024 10:36 AM TAPE RECORDING MACHINE OPERATOR Body Mass Index 24.21 03/10/2024 10:36 AM TAPE RECORDING MACHINE OPERATOR Plan of Treatment Not on file Procedures Procedure Name Priority Date/Time Associated Diagnosis Comments MRI KNEE LEFT WO CONTRAST Schedule Routine, Read Routine (OP Routine) 03/10/2024 11:28 AM TAPE RECORDING MACHINE OPERATOR Pain in joint of left knee Effusion, left knee from Last 3 Months Results * MRI Knee Left WO Contrast (03/10/2024 11:28 AM TAPE RECORDING MACHINE OPERATOR) Anatomical Region Laterality Modality Lower Extremities Left Magnetic Reson ance 03/10/2024 12:3 3 PM TAPE RECORDING MACHINE OPERATOR Impressions 03/10/2024 12:39 PM TAPE RECORDING MACHINE OPERATOR 1. 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 2. Complex tear of the body and posterior horn medial meniscus with involvement of the posterior root. 3. Mild to moderate patellofemoral compartment predominant tricompartmental left knee chondrosis. 4. Moderate knee joint effusion and prominent synovitis. Dictated by: Huy Estrada D.O. The radiology attending physician has personally reviewed this study, and had reviewed and/or edited this written report and agrees with it. Electronically signed by: Nathaniel Tejada MD Narrative 03/10/2024 12:39 PM TAPE RECORDING MACHINE OPERATOR EXAMINATION: MRI KNEE LEFT WO CONTRAST HISTORY: left knee pain and effusion FINDINGS: No comparison prior exams available. Multiplanar, multisequence MR examination of the left knee was performed without intravenous or intraarticular contrast. In the medial compartment, there is a complex tear of the body and posterior horn medial meniscus extending to the meniscal posterior root. Mild superficial chondrosis. Mild superficial chondrosis. There is no focal chondral defect or subchondral edema. In the lateral compartment, the meniscus is intact. There is mild to moderate partial thickness chondrosis including involvement of the central and posterior tibial plateau articular surface. No subchondral marrow edema. In the patellofemoral compartment, there is mild patellar chondrosis with patellar facet deep subchondral fissure. Moderate medial trochlea chondrosis with subchondral marrow edema. Chronic rupture of the anterior cruciate ligament. The posterior cruciate ligament is intact. The collateral ligaments are intact. The extensor mechanism is normal. The popliteus tendon is intact. Moderate knee joint effusion with synovitis. The bone marrow signal is normal. Anterior tibial translation is noted. Procedure Note Nathaniel Tejada MD - 03/10/2024 EXAMINATION: MRI KNEE LEFT WO CONTRAST HISTORY: left knee pain and effusion FINDINGS: No comparison prior exams available. Multiplanar, multisequence MR examination of the left knee was performed without intravenous or intraarticular contrast. In the medial compartment, there is a complex tear of the body and posterior horn medial meniscus extending to the meniscal posterior root. Mild superficial chondrosis. Mild superficial chondrosis. There is no focal chondral defect or subchondral edema. In the lateral compartment, the meniscus is intact. There is mild to moderate partial thickness chondrosis including involvement of the central and posterior tibial plateau articular surface. No subchondral marrow edema. In the patellofemoral compartment, there is mild patellar chondrosis with patellar facet deep subchondral fissure. Moderate medial trochlea chondrosis with subchondral marrow edema. Chronic rupture of the anterior cruciate ligament. The posterior cruciate ligament is intact. The collateral ligaments are intact. The extensor mechanism is normal. The popliteus tendon is intact. Moderate knee joint effusion with synovitis. The bone marrow signal is normal. Anterior tibial translation is noted. IMPRESSION: 1. 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 2. Complex tear of the body and posterior horn medial meniscus with involvement of the posterior root. 3. Mild to moderate patellofemoral compartment predominant tricompartmental left knee chondrosis. 4. Moderate knee joint effusion and prominent synovitis. Dictated by: Huy Estrada D.O. The radiology attending physician has personally reviewed this study, and had reviewed and/or edited this written report and agrees with it. Electronically signed by: Nathaniel Tejada MD William Martinez MD IMG MRI PROCEDURES Final Res ult from Last 3 Months Insurance [facility] MEDICARE [address] [place] [address] Care Teams Insight Leader Relationship Specialty Start Date End Date No, Physician PCP - General 04/24/21
--- OUTSIDE RECORDS SUMMARY | 2024-05-19 09:02 | XMS_ITS | Clinical Summary ---
Author Organization [facility] [address] Address [address] [place] [address] Care Team Providers Care Goldsmith Apprentice Name Role Phone No, Physician Primary Care Provider [phone] Allergies Active Allergy Reactions Criticality Noted Date [...] Active Active Problems No known active problems Encounters Date Type Department Care Team Description 03/10/2024 10:11 AM DRINK MIXER - 03/10/2024 11:59 PM DRINK MIXER Hospital Encounter [facility] [address] [place] [address] Pain in joint of left knee; Effusion, left knee Discharge Disposition: Discharge to home or self care from Last 3 Months Social History Tobacco Use Types Packs/Day Years Used Date Smoking Tobacco: Never Assessed Comments Unknown Sex and Gender Information Value Date Recorded Sex Assigned at Not on file Legal Sex Female 2:25 AM DRINK MIXER Gender Identity Not on file Sexual Orientation Not on file Obstetrics History Last Filed Vital Signs Vital Sign Reading Time Taken Comments Blood Pressure 134/96 04/24/2021 9:01 AM DRINK MIXER Pulse 54 04/24/2021 8:53 AM DRINK MIXER Temperature 36.3 C (97.4 F) 04/24/2021 8:53 AM DRINK MIXER Respiratory Rate 16 04/24/2021 8:53 AM DRINK MIXER Oxygen Saturation 99% 04/24/2021 8:53 AM DRINK MIXER Inhaled Oxygen Concentration - - Weight 68 kg (150 lb) 03/10/2024 10:36 AM DRINK MIXER Height 167.6 cm (5' 6 ) 03/10/2024 10:36 AM DRINK MIXER Body Mass Index 24.21 03/10/2024 10:36 AM DRINK MIXER Plan of Treatment Health Maintenance Due Date Last Done Comments Breast Cancer Screening-Mammogram 1955 Colon Cancer Screening-Colonoscopy 1957 Depression Screening 1957 Fall Risk Assessment 1957 Hepatitis C Screening 1957 Osteoporosis Screening-Bone Density Scan 1957 DTaP/Tdap/Td Vaccine (1 - Tdap) 1968 Hepatitis B Screening 1975 Zoster Vaccine (2 of 2) 09/12/2018 07/18/2018 Pneumococcal vaccine 65+ (1 of 1 - PCV) 2022 Well Visit 65+ 2022 Covid-19 Vaccine ( season) 2023 03/09/2021, 06/21/2020, 06/02/2020 Influenza Vaccine (#1) 2023 , 12/13/2019, 01/03/2019 Procedures Procedure Name Priority Date/Time Associated Diagnosis Comments MRI KNEE LEFT WO CONTRAST Schedule Routine, Read Routine (OP Routine) 03/10/2024 11:28 AM DRINK MIXER Pain in joint of left knee Effusion, left knee from Last 3 Months Results * MRI Knee Left WO Contrast (03/10/2024 11:28 AM DRINK MIXER) Anatomical Region Laterality Modality Lower Extremities Left Magnetic Reson ance 03/10/2024 12:3 3 PM DRINK MIXER Impressions 03/10/2024 12:39 PM DRINK MIXER 1. Chronic full-thickness tear of the anterior [...] Nathaniel Tejada MD Narrative 03/10/2024 12:39 PM DRINK MIXER EXAMINATION: MRI KNEE LEFT WO CONTRAST HISTORY: [...] Res ult from Last 3 Months Insurance A[employer] MEDICARE AETNA MEDICARE Care Teams Goldsmith Apprentice Relationship Specialty Start Date End Date No, Physician PCP - General 04/24/21
--- OUTSIDE RECORDS SUMMARY | 2024-05-19 09:02 | XMS_ITS | Continuity of Care Document ---
Author Organization [facility] Address [address] [facility] [address] [place] [address] Phone Care Team Providers Care Appraiser Auditor Name Role Phone Woodrow Mendoza MD Unavailable [...] Providers Copied on Encounter [facility], [address] [address], [place], [address], [place] tel:[phone] [facility] No Information [address]. [address], [place], [place], [id number]. tel:[phone] [facility], [address], [place], [address], [place] tel:[phone] [facility] S/P left knee arthroscopyPri dana osteoarthritis of right knee 3 Kelly [address]. [address], [place], [place], [address]. tel:[phone] Referring Provider: Xochitl Duarte, [address], [place], [address] . tel:[phone] [facility], [address], [place], [address], [place] tel:[phone] [facility] No Information [address] Kelly [address]. [address], [place], [place], [id number]. tel:[phone] [facility], [address], [place], [address], [place] tel:[phone] [facility] Tear of medial meniscus of left knee, current, unspecified tear type, subsequent encounterPrima ry osteoarthritis of left knee Jan- 3 Kelly [address]. [address], [place], [place], [address]. tel:[phone] OFFICE/OUTPA TIENT VISIT EST [facility], [address], [place], [address], [place] tel:[phone] [facility] Tear of medial meniscus of left knee, current, unspecified tear type, subsequent encounterPrima ry osteoarthritis of right knee Jan- 3 Kelly [address]. [address], [place], [place], [address]. tel:[phone] Referring Provider: [address], [place], [address] . tel:[phone] [facility], [address], [place], [address], [place] tel:[phone] [facility] Primary osteoarthritis of left kneePatellofem oral arthritis of right knee Sep-1 3 Colin Fr[address]. [address], [place], [place], [address]. tel:[phone] Referring Provider: [address], [place], [address] . tel:[phone] [facility], [address], [place], [address], [place] tel:[phone] [facility] Primary osteoarthritis of left kneePatellofem oral arthritis of right knee Sep-0 6- 3 Colin Fr[address]. [address], [place], [place], [address]. tel:[phone] Referring Provider: [address], [place], [address] . tel:[phone] [facility], [address] [address], [place], [address], [place] tel:[phone] [facility] Right knee pain, unspecified chronicityPate llofemoral arthritis of right kneeTear of medial meniscus of left knee, initial encounterPrima ry osteoarthritis of left knee 3 Cristi Franny. [address], [place], [place], [address]. tel:[phone] Referring Provider: Xochitl Duarte, [address], [place], [address] . tel:[phone] [facility], [address] [facility] [address], [place], [address], [place] tel:[phone] [facility] Unspecified internal derangement of left knee 3 No Information Referring Provider: Woodrow Mendoza, [address], [place], [address] . tel:[phone] OFFICE/OUTPA TIENT VISIT NEW [facility], [address] [facility] [address], [place], [address], [place] tel:[phone] [facility] Internal derangement of left kneeLeft knee pain, unspecified chronicity 3 Kelly [address]. [address], [place], [place], [address]. tel:[phone] Referring Provider: Xochitl Duarte, [address], [place], [address] . tel:[phone] Family History Family Member Type Diagnosis Age At Onset Mother Problem Alive and well Father Problem (finding) Payers Payer name Insurance type Covered democrat ID Authoriza tion(s) Medicare E2 OT [id number] [id number] or after OT [id number] Social History Type Description Quantity Date Captured [...]
[2024-05-19 09:19] LABS: Estimated Glomerular Filt Rate 50
== END 2024-05-19 08:54 | disposition home or self-care (01) ==
DX: R91.8 Other nonspecific abnormal finding of lung field (principal)
CPT/HCPCS: 71260; Q9967

== ENCOUNTER 2024-06-29 16:11 | Outpatient (CLI) | payer MEDICARE, SELFPAY ==
--- OUTSIDE RECORDS SUMMARY | 2024-06-29 16:28 | XMS_ITS | Clinical Summary ---
Author Organization [facility] [address] [place] Address [address] [place] [address] Care Team Providers Care Fence Machine Operator Name Role Phone No, Physician Primary Care Provider [phone] Allergies Active Allergy Reactions Criticality Noted Date [...] on file Legal Sex Female 2:25 AM INVESTMENT BANKING ASSOCIATE Gender Identity Not on file Sexual Orientation Not on file Obstetrics History Last Filed Vital Signs Vital Sign Reading Time Taken Comments Blood Pressure 134/96 04/24/2021 9:01 AM INVESTMENT BANKING ASSOCIATE Pulse 54 04/24/2021 8:53 AM INVESTMENT BANKING ASSOCIATE Temperature 36.3 C (97.4 F) 04/24/2021 8:53 AM INVESTMENT BANKING ASSOCIATE Respiratory Rate 16 04/24/2021 8:53 AM INVESTMENT BANKING ASSOCIATE Oxygen Saturation 99% 04/24/2021 8:53 AM INVESTMENT BANKING ASSOCIATE Inhaled Oxygen Concentration - - Weight 68 kg (150 lb) 03/10/2024 10:36 AM INVESTMENT BANKING ASSOCIATE Height 167.6 cm (5' 6 ) 03/10/2024 10:36 AM INVESTMENT BANKING ASSOCIATE Body Mass Index 24.21 03/10/2024 10:36 AM INVESTMENT BANKING ASSOCIATE Plan of Treatment Health Maintenance Due Date Last Done Comments Breast Cancer Screening-Mammogram 1955 Colon Cancer Screening-Colonoscopy 1957 Depression Screening 1957 Fall Risk Assessment 1957 Hepatitis C Screening 1957 Osteoporosis Screening-Bone Density Scan 1957 DTaP/Tdap/Td Vaccine (1 - Tdap) 1968 Hepatitis B Screening 1975 Pneumococcal vaccine 65+ (1 of 1 - PCV) 2007 Zoster Vaccine (2 of 2) 09/12/2018 07/18/2018 Well Visit 65+ 2022 Covid-19 Vaccine ( - season) 2023 03/09/2021, 06/21/2020, 06/02/2020 Influenza Vaccine (#1) 2023 , 12/13/2019, 01/03/2019 Insurance AETNA MEDICARE AETNA MEDICARE Care Teams Fence Machine Operator Relationship Specialty Start Date End Date No, Physician PCP - General 04/24/21
--- OUTSIDE RECORDS SUMMARY | 2024-06-29 16:28 | XMS_ITS | Referral Summary ---
Author Organization [facility] [address] [place] Address [address] [place] [address] Care Team Providers Care Build Technician Name Role Phone No, Physician Primary Care Provider [phone] Allergies Active Allergy Reactions Criticality Noted Date [...] on file Legal Sex Female 2:25 AM ER MANAGER Gender Identity Not on file Sexual Orientation Not on file Last Filed Vital Signs Vital Sign Reading Time Taken Comments Blood Pressure 134/96 04/24/2021 9:01 AM ER MANAGER Pulse 54 04/24/2021 8:53 AM ER MANAGER Temperature 36.3 C (97.4 F) 04/24/2021 8:53 AM ER MANAGER Respiratory Rate 16 04/24/2021 8:53 AM ER MANAGER Oxygen Saturation 99% 04/24/2021 8:53 AM ER MANAGER Inhaled Oxygen Concentration - - Weight 68 kg (150 lb) 03/10/2024 10:36 AM ER MANAGER Height 167.6 cm (5' 6 ) 03/10/2024 10:36 AM ER MANAGER Body Mass Index 24.21 03/10/2024 10:36 AM ER MANAGER Plan of Treatment Not on file Insurance AETNA MEDICARE [employer] MEDICARE Care Teams Build Technician Relationship Specialty Start Date End Date No, Physician PCP - General 04/24/21
--- OUTSIDE RECORDS SUMMARY | 2024-06-29 16:28 | XMS_ITS | Clinical Summary ---
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 Not on file Not on file Last Filed Vital Signs Vital Sign Reading Time Taken Comments Blood Pressure 150/90 04/15/2021 2:01 PM PHOTOGRAPHIC PROCESS WORKER Pulse 58 04/15/2021 2:00 PM PHOTOGRAPHIC PROCESS WORKER Temperature 36.7 C (98.1 F) 04/15/2021 2:00 PM PHOTOGRAPHIC PROCESS WORKER Respiratory Rate 24 04/15/2021 2:00 PM PHOTOGRAPHIC PROCESS WORKER Oxygen Saturation 96% 04/15/2021 2:00 PM PHOTOGRAPHIC PROCESS WORKER Inhaled Oxygen Concentration - - Weight 74.3 kg (163 lb 12.8 oz) 04/15/2021 2:02 PM PHOTOGRAPHIC PROCESS WORKER Height 170.2 cm (5' 7 ) 04/15/2021 2:02 PM PHOTOGRAPHIC PROCESS WORKER Body Mass Index 25.65 04/15/2021 2:02 PM PHOTOGRAPHIC PROCESS WORKER Plan of Treatment Health Maintenance Due Date [...] patient's age to complete this topic Insurance [employer] Care Teams Dish Carrier Relationship Specialty Start Date End Date Xochitl Duarte MD [address] [place] [address] PCP - General 02/18/21
--- OUTSIDE RECORDS SUMMARY | 2024-06-29 16:28 | XMS_ITS | Clinical Summary ---
Author Organization [facility] Address [address] [place] [address] Care Team Providers Care Events Director Name Role Phone Xochitl Duarte MD Primary Care Provider [phone] Allergies Active Allergy Reactions Criticality Noted Date [...] Colonography Q 5 years 2002 PNEUMOCOCCAL VACCINE 50+ YEARS (1 of 1 - PCV) 04/26/19 08 ZOSTER VACCINE (1 of 2) 2007 OSTEOPOROSIS SCREENING 2022 INFLUENZA VACCINE (#1) 2023 RSV VACCINE (60+ or ) (1 - 1-dose 75+ series) 2032 Insurance AETNA [facility] Care Teams Events Director Relationship Specialty Start Date End Date Xochitl Duarte MD [facility] [place] [address] PCP - General Internal Medicine 08/14/20
== END 2024-06-29 16:12 | disposition home or self-care (01) ==
LOC: ANHLAB 16:12
PROVIDERS: Visit Provider Internal Medicine Critical Care Medicine
DX: J98.4 Other disorders of lung (principal)
CPT/HCPCS: 87015; 87070; 87102; 87116; 87205; 87206

== ENCOUNTER 2024-06-30 15:57 | Outpatient (CLI) | payer MEDICARE, SELFPAY ==
--- OUTSIDE RECORDS SUMMARY | 2024-06-30 16:02 | XMS_ITS | Clinical Summary ---
Author Organization [facility] [address] [place] Address [address] [place] [phone] Care Team Providers Care Balance Wheel Facer Name Role Phone No, Physician Primary Care Provider [phone] Allergies Active Allergy Reactions Criticality Noted Date [...] on file Legal Sex Female 2:25 AM FAMILY AND MARRIAGE COUNSELLOR Gender Identity Not on file Sexual Orientation Not on file Obstetrics History Last Filed Vital Signs Vital Sign Reading Time Taken Comments Blood Pressure 134/96 04/24/2021 9:01 AM FAMILY AND MARRIAGE COUNSELLOR Pulse 54 04/24/2021 8:53 AM FAMILY AND MARRIAGE COUNSELLOR Temperature 36.3 C (97.4 F) 04/24/2021 8:53 AM FAMILY AND MARRIAGE COUNSELLOR Respiratory Rate 16 04/24/2021 8:53 AM FAMILY AND MARRIAGE COUNSELLOR Oxygen Saturation 99% 04/24/2021 8:53 AM FAMILY AND MARRIAGE COUNSELLOR Inhaled Oxygen Concentration - - Weight 68 kg (150 lb) 03/10/2024 10:36 AM FAMILY AND MARRIAGE COUNSELLOR Height 167.6 cm (5' 6 ) 03/10/2024 10:36 AM FAMILY AND MARRIAGE COUNSELLOR Body Mass Index 24.21 03/10/2024 10:36 AM FAMILY AND MARRIAGE COUNSELLOR Plan of Treatment Health Maintenance Due Date [...] Insurance AETNA MEDICARE AETNA MEDICARE Care Teams Balance Wheel Facer Relationship Specialty Start Date End Date No, Physician PCP - General 04/24/21
--- OUTSIDE RECORDS SUMMARY | 2024-06-30 16:02 | XMS_ITS | Referral Summary ---
Author Organization [facility] [address] [place] Address [address] [place] [address] Care Team Providers Care Senior Microsoft Consultant Name Role Phone No, Physician Primary Care Provider [phone] Allergies Active Allergy Reactions Criticality Noted Date [...] on file Legal Sex Female 2:25 AM NEWSPAPER JOURNALIST Gender Identity Not on file Sexual Orientation Not on file Last Filed Vital Signs Vital Sign Reading Time Taken Comments Blood Pressure 134/96 04/24/2021 9:01 AM NEWSPAPER JOURNALIST Pulse 54 04/24/2021 8:53 AM NEWSPAPER JOURNALIST Temperature 36.3 C (97.4 F) 04/24/2021 8:53 AM NEWSPAPER JOURNALIST Respiratory Rate 16 04/24/2021 8:53 AM NEWSPAPER JOURNALIST Oxygen Saturation 99% 04/24/2021 8:53 AM NEWSPAPER JOURNALIST Inhaled Oxygen Concentration - - Weight 68 kg (150 lb) 03/10/2024 10:36 AM NEWSPAPER JOURNALIST Height 167.6 cm (5' 6 ) 03/10/2024 10:36 AM NEWSPAPER JOURNALIST Body Mass Index 24.21 03/10/2024 10:36 AM NEWSPAPER JOURNALIST Plan of Treatment Not on file Insurance AETNA MEDICARE [employer] MEDICARE Care Teams Senior Microsoft Consultant Relationship Specialty Start Date End Date No, Physician PCP - General 04/24/21
--- OUTSIDE RECORDS SUMMARY | 2024-06-30 16:02 | XMS_ITS | Clinical Summary ---
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 on file Not on file Last Filed Vital Signs Vital Sign Reading Time Taken Comments Blood Pressure 150/90 04/15/2021 2:01 PM CRIMINAL RESEARCHER Pulse 58 04/15/2021 2:00 PM CRIMINAL RESEARCHER Temperature 36.7 C (98.1 F) 04/15/2021 2:00 PM CRIMINAL RESEARCHER Respiratory Rate 24 04/15/2021 2:00 PM CRIMINAL RESEARCHER Oxygen Saturation 96% 04/15/2021 2:00 PM CRIMINAL RESEARCHER Inhaled Oxygen Concentration - - Weight 74.3 kg (163 lb 12.8 oz) 04/15/2021 2:02 PM CRIMINAL RESEARCHER Height 170.2 cm (5' 7 ) 04/15/2021 2:02 PM CRIMINAL RESEARCHER Body Mass Index 25.65 04/15/2021 2:02 PM CRIMINAL RESEARCHER Plan of Treatment Health Maintenance Due Date [...] patient's age to complete this topic Insurance Outsell Care Teams Strategic Planning Manager Relationship Specialty Start Date End Date Xochitl Duarte MD [address] [place] [address] PCP - General 02/18/21
--- OUTSIDE RECORDS SUMMARY | 2024-06-30 16:03 | XMS_ITS | Clinical Summary ---
Author Organization [employer] [facility] Address [address] [place] [address] Care Team Providers Care Helmet Hat Brim Cutter Name Role Phone Xochitl Duarte MD Primary Care Provider [phone] Allergies Active Allergy Reactions Criticality Noted Date [...] - 1-dose 75+ series) 2032 Insurance AETNA [facility] Care Teams Helmet Hat Brim Cutter Relationship Specialty Start Date End Date Xochitl Duarte MD [facility] [place] [address] PCP - General Internal Medicine 08/14/20
== END 2024-06-30 15:58 | disposition home or self-care (01) ==
PROVIDERS: Visit Provider Internal Medicine Critical Care Medicine
DX: J98.4 Other disorders of lung (principal)
CPT/HCPCS: 87015; 87070; 87102; 87116; 87205; 87206

== ENCOUNTER 2024-07-01 12:28 | Outpatient (CLI) | payer MEDICARE, SELFPAY ==
--- OUTSIDE RECORDS SUMMARY | 2024-07-01 12:30 | XMS_ITS | Clinical Summary ---
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 on file Not on file Last Filed Vital Signs Vital Sign Reading Time Taken Comments Blood Pressure 150/90 04/15/2021 2:01 PM ELECTRICAL TECH/PROJECT MANAGER Pulse 58 04/15/2021 2:00 PM ELECTRICAL TECH/PROJECT MANAGER Temperature 36.7 C (98.1 F) 04/15/2021 2:00 PM ELECTRICAL TECH/PROJECT MANAGER Respiratory Rate 24 04/15/2021 2:00 PM ELECTRICAL TECH/PROJECT MANAGER Oxygen Saturation 96% 04/15/2021 2:00 PM ELECTRICAL TECH/PROJECT MANAGER Inhaled Oxygen Concentration - - Weight 74.3 kg (163 lb 12.8 oz) 04/15/2021 2:02 PM ELECTRICAL TECH/PROJECT MANAGER Height 170.2 cm (5' 7 ) 04/15/2021 2:02 PM ELECTRICAL TECH/PROJECT MANAGER Body Mass Index 25.65 04/15/2021 2:02 PM ELECTRICAL TECH/PROJECT MANAGER Plan of Treatment Health Maintenance Due Date [...] patient's age to complete this topic Insurance [employer] Care Teams Pet Stylist Relationship Specialty Start Date End Date Xochitl Duarte MD [address] [place] [address] PCP - General 02/18/21
--- OUTSIDE RECORDS SUMMARY | 2024-07-01 12:30 | XMS_ITS | Clinical Summary ---
Author Organization [facility] [address] [place] Address [address] [place] [phone] Care Team Providers Care Gear Tester Name Role Phone No, Physician Primary Care Provider [phone] Allergies Active Allergy Reactions Criticality Noted Date [...] on file Legal Sex Female 2:25 AM PROPERTY OFFICER Gender Identity Not on file Sexual Orientation Not on file Obstetrics History Last Filed Vital Signs Vital Sign Reading Time Taken Comments Blood Pressure 134/96 04/24/2021 9:01 AM PROPERTY OFFICER Pulse 54 04/24/2021 8:53 AM PROPERTY OFFICER Temperature 36.3 C (97.4 F) 04/24/2021 8:53 AM PROPERTY OFFICER Respiratory Rate 16 04/24/2021 8:53 AM PROPERTY OFFICER Oxygen Saturation 99% 04/24/2021 8:53 AM PROPERTY OFFICER Inhaled Oxygen Concentration - - Weight 68 kg (150 lb) 03/10/2024 10:36 AM PROPERTY OFFICER Height 167.6 cm (5' 6 ) 03/10/2024 10:36 AM PROPERTY OFFICER Body Mass Index 24.21 03/10/2024 10:36 AM PROPERTY OFFICER Plan of Treatment Health Maintenance Due Date [...] Insurance AETNA MEDICARE AETNA MEDICARE Care Teams Gear Tester Relationship Specialty Start Date End Date No, Physician PCP - General 04/24/21
--- OUTSIDE RECORDS SUMMARY | 2024-07-01 12:30 | XMS_ITS | Clinical Summary ---
Author Organization [facility] [facility] [facility] Address [address] [place] [address] Care Team Providers Care Hospital Sales Representative Name Role Phone Xochitl Duarte MD Primary Care Provider [phone] Allergies Active Allergy Reactions Criticality Noted Date [...] - 1-dose 75+ series) 2032 Insurance AETNA [facility] Care Teams Hospital Sales Representative Relationship Specialty Start Date End Date Xochitl Duarte MD [facility] [place] [address] PCP - General Internal Medicine 08/14/20
--- OUTSIDE RECORDS SUMMARY | 2024-07-01 12:30 | XMS_ITS | Referral Summary ---
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 Gender Identity Not on file Sexual Orientation Not on file Last Filed Vital Signs Vital Sign Reading Time Taken Comments Blood Pressure 134/96 04/24/2021 9:01 AM GLAZIER SUPERVISOR Pulse 54 04/24/2021 8:53 AM GLAZIER SUPERVISOR Temperature 36.3 C (97.4 F) 04/24/2021 8:53 AM GLAZIER SUPERVISOR Respiratory Rate 16 04/24/2021 8:53 AM GLAZIER SUPERVISOR Oxygen Saturation 99% 04/24/2021 8:53 AM GLAZIER SUPERVISOR Inhaled Oxygen Concentration - - Weight 68 kg (150 lb) 03/10/2024 10:36 AM GLAZIER SUPERVISOR Height 167.6 cm (5' 6 ) 03/10/2024 10:36 AM GLAZIER SUPERVISOR Body Mass Index 24.21 03/10/2024 10:36 AM GLAZIER SUPERVISOR Plan of Treatment Not on file Insurance AETNA MEDICARE [employer] MEDICARE Care Teams Radio Communication Coordinator Relationship Specialty Start Date End Date No, Physician PCP - General 04/24/21
--- OUTSIDE RECORDS SUMMARY | 2024-07-01 12:31 | XMS_ITS | Continuity of Care Document ---
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 - Active hydrocodone 5 mg-acetaminophen 325 mg tablet take 1 tablet by oral route every 8 hours as needed for pain 1 tablet - Active LISINOPRIL 20 MG TABLET TAKE 1 TABLET BY MOUTH TWICE A DAY - Active Lotrimin AF (clotrimazole) 1 % topical cream apply by topical route 2 times every day to the affected and surrounding areas of skin in the morning and evening 0.00 - Active TRELEGY ELLIPTA 200-62.5-25 INHALE 1 PUFF BY INHALATION ROUTE EVERY DAY AT THE SAME TIME EACH DAY - Active albuterol sulfate HFA 90 mcg/actuation aerosol inhaler inhale 2 puff by inhalation route 4 times every day as needed - Active amlodipine 10 mg tablet take 1 tablet by oral route every day 10 MG - Active increased 8-6-24 pantoprazole 40 mg tablet,delayed release take 1 tablet by oral route every day 40 MG - Active aspirin 81 mg tablet,delayed release take 1 tablet by oral route every day 81 MG - Active Procedures Procedure Date BASIC METABOLIC PANEL(BMP) CBC, INC PLATELETS AND DIFFERENTIAL ROUTINE VENIPUNCTURE OFFICE WNWBV-UOS-WTJIVYWT BODY MASS INDEX DOCD SYST BP LT 130 MM HG DIAST BP < 80 MM HG Chest Xray, 2 Views OFFICE NZQJC-REE-JNZEJDOH BODY MASS INDEX DOCD SYST BP LT 130 MM HG DIAST BP < 80 MM HG CBC, INC PLATELETS AND DIFFERENTIAL COMPREHEN METABOLIC PANEL CMP LIPID PANEL VITAMIN D, 25-HYDROXY ROUTINE VENIPUNCTURE OFFICE ZQGLS-MLJ-AYZCOHCX BODY MASS INDEX DOCD SYST BP LT 130 MM HG DIAST BP < 80 MM HG REMOVAL IMPACTED CERUMEN REQUIRING INSTR UMENTATION Covid Vaccine Admin, Single Dose 2023 Pfizer Comirnaty tri-sucrose COVID Vacci ne 30 mcg/ OFFICE FVFYW-HIZ-JGNSRWJO BODY MASS INDEX DOCD SYST BP >= 140 MM HG6 IT DIAST BP >= 90 MM HG EKG (ELECTROCARDIOGRAM) OFFICE FLFCP-XRA-MCKQUEVV BODY MASS INDEX DOCD SYST BP >= 140 MM HG6 IT DIAST BP >= 90 MM HG BASIC METABOLIC PANEL(BMP) CBC, INC PLATELETS AND DIFFERENTIAL SARS-CoV-2/Flu/RSV (all targets) 2023 THYROID STIMULATION HORMONE(TSH) 2023 URINALYSIS W MICROSCOPIC (UA) ROUTINE VENIPUNCTURE OFFICE DAMLX-PHY-OQHEIYNH BODY MASS INDEX DOCD SYST BP LT 130 MM HG DIAST BP 80-89 MM HG OFFICE QQOVD-DIU-DTIRAEYX PPPS, subseq visit BODY MASS INDEX DOCD SYST BP LT 130 MM HG DIAST BP 80-89 MM HG URINALYSIS, REFLEX (UA) NSALINE 1000CC INTRAVENOUS INFUSION, HYDRATION; INITIAL , 31 MINUT INTRAVENOUS INFUSION, HYDRATION; EACH AD DITIONAL H OFFICE LZLOZ-BBR-NSUWNVCN SYST BP LT 130 MM HG DIAST BP < 80 MM HG FALL RISK ASSESSMENT DOC'D PRES/ABSN URINE INCON ASSESS Clin depression screen doc CBC, INC PLATELETS AND DIFFERENTIAL COMPREHEN METABOLIC PANEL CMP FERRITIN LEVEL ROUTINE VENIPUNCTURE NSALINE 1000CC INTRAVENOUS INFUSION, HYDRATION; INITIAL , 31 MINUT OFFICE MHION-YBU-NQTLKMYQ SYST BP LT 130 MM HG DIAST BP < 80 MM HG CBC, INC PLATELETS AND DIFFERENTIAL FERRITIN LEVEL ROUTINE VENIPUNCTURE OFFICE JXURH-ZYX-WCGIGFTL SYST BP >= 140 MM HG6 IT DIAST BP 80-89 MM HG BASIC METABOLIC PANEL(BMP) CBC, INC PLATELETS AND DIFFERENTIAL ROUTINE VENIPUNCTURE Transitional Care- First 7 Days Of Disch arge SYST BP >= 140 MM HG6 IT DIAST BP < 80 MM HG DSCHRG MED/CURRENT MED MERGE BASIC METABOLIC PANEL(BMP) CBC, INC PLATELETS AND DIFFERENTIAL FERRITIN LEVEL VITAMIN D, 25-HYDROXY ROUTINE VENIPUNCTURE OFFICE TQROL-BWU-KFDLZWSB SYST BP LT 130 MM HG DIAST BP < 80 MM HG EKG (ELECTROCARDIOGRAM) PULSE OXIMETRY, MULTIPLE Admin influenza virus vac FLU VACC PRSV FREE INC ANTIG OFFICE IITTO-VAR-HEYGFAGI SYST BP LT 130 MM HG DIAST BP >= 90 MM HG Chest Xray, 2 Views OFFICE BIAMK-ITE-JQCCHRCD SYST BP GE 130 - 139MM HG DIAST BP < 80 MM HG OFFICE XGVTQ-ZCU-ZVFDPOMD SYST BP >= 140 MM HG6 IT [...] MEDICARE Pneumococcal Conjugate Vaccine (PCV20) J OFFICE ZSJPH-VAM-CPOGXADC SYST BP LT 130 MM HG DIAST BP < 80 MM HG INIT PREVENT PHYS EXAM; LIMITED TO NEW B ENEFICIARY BASIC METABOLIC PANEL(BMP) CBC, INC PLATELETS AND DIFFERENTIAL ROUTINE VENIPUNCTURE INTRAVENOUS INFUSION, HYDRATION; INITIAL , 31 MINUT NSALINE 1000CC OFFICE LWMWQ-CQJ-IDJYUGML SYST BP LT 130 MM HG DIAST BP < 80 MM HG DXA BONE DENSITY, AXIAL SCREENING MAMMOGRAM (CAD) Screening Digital Breast Tomosynthesis M OFFICE JWZFC-BUD-HWDHYSDD BASIC METABOLIC PANEL(BMP) ROUTINE VENIPUNCTURE X-RAY EXAM OF LUMBAR SPINE, A/P & LAT De KENALOG 10 MG KENALOG 10 MG ASP/INJ MAJOR JOINTOR BURSA, SHOULDER, H IP,KNEE W/O US GUIDANCE OFFICE TQNWU-HYB-JZLWGZOQ IMMUN ADMIN (INC PERCUTANEOUS) SINGLE, F IRST INJ FLU VAC NO PRSV 4 IVA, 0.5mL DOSAGE OFFICE AGPUP-NMZ-JHDRCWHD DUPLEX SCAN OF ABD, PELV, SCROT, COMPLET E ULTRASOUND RETROPERITONEAL ( AORTA, RENAL, NODES) REAL TIME W/ DOCUMENTATION, CO DUPLEX SCAN LOWER EXTREMITY EXTREMITY STUDY/BILATERAL (VENECIA) 022 OFFICE NXGTG-OXS-EZIPEWYD BASIC METABOLIC PANEL(BMP) ROUTINE VENIPUNCTURE OFFICE NAZQR-USW-FZYSKGIB BASIC METABOLIC PANEL(BMP) ROUTINE VENIPUNCTURE BP OFFICE/OUTPATIENT VISIT EST OFFICE MZIHG-DTP-SFIWIWOJ CBC, INC PLATELETS AND DIFFERENTIAL COMPREHEN METABOLIC PANEL CMP ROUTINE VENIPUNCTURE INTRAVENOUS INFUSION, HYDRATION; INITIAL , 31 MINUT NSALINE 1000CC BASIC METABOLIC PANEL(BMP) ROUTINE VENIPUNCTURE OFFICE ROBMD-SRN-VXNQNVWU KENALOG 10 MG KENALOG 10 MG ASP/INJ MAJOR JOINTOR BURSA, SHOULDER, H IP,KNEE W/O US GUIDANCE X-RAY EXAM OF KNEES OFFICE AFHAW-BXT-FPNSTBZO BASIC METABOLIC PANEL(BMP) ROUTINE VENIPUNCTURE OFFICE YELTE-TWZ-CMMSAQWY BASIC METABOLIC PANEL(BMP) ROUTINE VENIPUNCTURE IMMUN ADMIN (INC PERCUTANEOUS) SINGLE, F IRST INJ FLU VACC PRSV FREE INC ANTIG OFFICE FHBSI-LLR-RWDSYINZ BASIC METABOLIC PANEL(BMP) ROUTINE VENIPUNCTURE OFFICE CFUBI-LQA-OMZDNFAD OFFICE VTEAV-BWS-QAOXVEYD OFFICE ZTCAL-BNR-YRSBSGOG BASIC METABOLIC PANEL(BMP) PARATHYROID HORMONE (PTH) URIC ACID, (S) VITAMIN D, 25-HYDROXY ROUTINE VENIPUNCTURE OFFICE TWRDU-PRY-ZTBHBEDK IMMUN ADMIN (INC PERCUTANEOUS) SINGLE, F IRST [...] DISCUSSION BASIC METABOLIC PANEL(BMP) ROUTINE VENIPUNCTURE OFFICE XBZEG-GOL-GYQSQDEE CT ABD&PELV 1+ SECTION/REGNS LOW OSMOLAR CONTRAST (300 TO 399 MG IODI NE) TISSUE EXAM BY PATHOLOGIST SCREENING COLONOSCOPY (NOT HIGH RISK) Jorge A UPPER GI ENDOSCOPY BIOPSY CBC, INC PLATELETS AND DIFFERENTIAL COMPREHEN METABOLIC PANEL [facility] 9 URINALYSIS, REFLEX (UA) ROUTINE VENIPUNCTURE OFFICE HNQHT-XFF-PCRAONWJ FERRITIN LEVEL COMPREHEN METABOLIC PANEL [facility] 9 ROUTINE VENIPUNCTURE OFFICE VKNTV-CSN-DWZPJPBM X-RAY EXAM OF FOOT OFFICE GIFIW-SJT-GDCFUTFT Advance Directives Directive Yes / No Effective [...] Diagnoses Date Provider Providers Copied on Encounter [facility], [address], [place], [place], [address] , tel: [phone] Care Management No Information 5 Felicia Leung. [address], [place], [place], [address], [place]. tel:[phone] [facility], [address], [place], [place], [address] , [place] tel: [phone] [facility] No Information 5 [employer] Cannon. [address], [place], [place], [address], [place]. tel:[phone] [facility], [address], [place], [place], [address] , tel: [phone] [facility] No Information 5 Cizek Xochitl. [address], [place], [place], [address], . tel:[phone] [facility], [address], [place], [place], [address] , tel: [phone] [facility] No Information 5 Cizek Xochitl. [address], [place], [place], [address], [place]. tel: [phone] [facility], [address], [place], [place], [address] , tel: [phone] [facility] Other emphysema 5 Cizek Xochitl. [address], [place], [place], [address], . tel:[phone] [facility], [address], [place], [place], [address] , tel: [phone] [facility] No Information 5 Cizek Xochitl. [address], [place], [place], [address], [place]. tel:[phone] [facility], [address], [place], [place], [address] , tel: [phone] [facility] No Information 5 Cizek Xochitl. [address], [place], [place], [address], [place]. tel:[phone] OFFICE KNDAA-SGW-TJF RENETTA [facility], [address], [place], [place], [address] , tel: [phone] [facility] Chronic Conditions (chief complaint) Other emphysemaHypert ensive chronic kidney disease with stage 1 through stage 4 chronic kidney disease, or unspecified chronic kidney diseaseStage 3a chronic kidney diseaseIron deficiency anemia, unspecified iron deficiency anemia typeAcute pneumoniaRight lower lobe lung massAtheroscler osis of aortaThoracic aortic aneurysm, without rupture, unspecifiedBila teral primary osteoarthritis of knee Feb-0 4-202 5 Felicia Leung. [address], [place], [place], [address], [place]. tel:[phone] Referring Provider: Xochitl Perez, [address], [place], [address] . tel:[phone] OFFICE FOYKZ-SPN-CBI [facility], [address], [place], [place], [address] , tel:[phone] [facility] acute visit (chief complaint)C hronic Conditions (chief complaint) Acute pneumoniaEssent ial (primary) hypertensionOth er emphysema 5 Chadwick Turner. [address], [place], [place], [address], [place]. tel:[phone] Referring Provider: Xochitl Perez, [address], [place], [address] . tel:[phone] [facility], [address], [place], [place], [address] , [place] tel:[phone] [facility] No Information 4 Felicia Leung. [address], [place], [place], [address], [place]. tel:[phone] OFFICE CLSAB-MYT-CTX [facility], [address], [place], [place], [address] , tel:[phone] [facility] Chronic Conditions (chief complaint) Stage 3a chronic kidney diseaseHyperten sive chronic kidney disease with stage 1 through stage 4 chronic kidney disease, or unspecified chronic kidney diseaseAtherosc lerosis of aortaOther emphysemaIron deficiency anemia, unspecified iron deficiency anemia typeActinic keratosisImpact ed cerumen of both earsVaginal drynessScreenin g mammogram for breast cancer 4 [employer]. [address], [place], [place], [address], [place]. tel:[phone] Referring Provider: Xochitl Perez, [address], [place], [address] . tel:[phone] [facility], [address], [place], [place], [address] , tel: [phone] [facility] No Information 4 Felicia Leung. [address], [place], [place], [address], . tel:[phone] [facility], [address], [place], [place], [address] , tel: [phone] [facility] No Information 4 Felicia Leung. [address], [place], [place], [address], [place]. tel:[phone] OFFICE AYFZD-DPO-QWO [facility], [address], [place], [place], [address] , tel: [phone] [facility] Chronic Conditions (chief complaint) Hypertensive chronic kidney disease with stage 1 through stage 4 chronic kidney disease, or unspecified chronic kidney diseaseStage 3a chronic kidney diseaseFollicul itisNasal sore 4 [employer]. [address], [place], [place], [address], [place]. tel:[phone] Referring Provider: Xochitl Perez, [address], [place], [address] . tel:[phone] OFFICE WMNQQ-IMJ-HIX [facility], [address], [place], [place], [address] , tel: [phone] [facility] Hypertensive chronic kidney disease with stage 1 through stage 4 chronic kidney disease, or unspecified chronic kidney diseaseStage 3a chronic kidney disease 4 [employer]. [address], [place], [place], [address], [place]. [phone] Referring Provider: Xochitl Perez, [address], [place], [address] . tel:[phone] OFFICE YLPMC-LNB-HJG [facility], [address], [place], [place], [address] , tel: [phone] [facility] Chronic Conditions (chief complaint) Hypertensive chronic kidney disease with stage 1 through stage 4 chronic kidney disease, or unspecified chronic kidney diseaseStage 3a chronic kidney diseaseAcute cystitis without hematuriaFatigu e, unspecified typeSymptoms of upper respiratory infection (URI)Intermitte nt constipation 4 [employer] Cannon. [address], [place], [place], [address], . tel:[phone] Referring Provider: Xochitl Perez, [address], [place], [address] . tel:[phone] OFFICE MZJTL-GIX-SES [facility], [address], [place], [place], [address] , tel:[phone] [facility] Medicare preventive (chief complaint)M edicare preventive (chief complaint)C hronic Conditions (chief complaint) Hypertensive chronic kidney disease with stage 1 through stage 4 chronic kidney disease, or unspecified chronic kidney diseaseStage 3a chronic kidney diseaseMedicare annual wellness visit, subsequentAther osclerosis of aortaThoracic aortic aneurysm, without rupture, unspecifiedOste openia of multiple sitesAcute cystitis without hematuria 4 Felicia Leung. [address], [place], [place], [address], [place]. tel:[phone] Referring Provider: Xochitl Perez, [address], [place], [address] . tel:[phone] OFFICE KNPUE-UON-KZV [facility], [address], [place], [place], [address] , tel:[phone] [facility] Chronic Conditions (chief complaint)c hronic conditions (chief complaint) Hypotension, unspecified hypotension typeHypertensiv e chronic kidney disease with stage 1 through stage 4 chronic kidney disease, or unspecified chronic kidney diseaseStage 3a chronic kidney diseaseUrinary frequencyAbnorm al urinalysis 4 Felicia Leung. [address], [place], [place], [address], . tel:[phone] Referring Provider: Xochitl Perez, [address], [place], [address] . tel:[phone] OFFICE HZNUO-HMM-CNP [facility], [address], [place], [place], [address] , tel: [phone] [facility] Chronic Conditions (chief complaint) Hypertensive chronic kidney disease with stage 1 through stage 4 chronic kidney disease, or unspecified chronic kidney diseaseStage 3a chronic kidney diseaseOther emphysemaIron deficiency anemia, unspecified iron deficiency anemia typeHypotension , unspecified hypotension type 4 Cizek Xochitl. [address], [place], [place], [address], . tel:[phone] Referring Provider: Xochitl Perez, [address], [place], [address] . tel:[phone] [facility], [address], [place], [place], [address] , tel: [phone] [facility] No Information 4 Cizek Xochitl. [address], [place], [place], [address], . tel:[phone] [facility], [address], [place], [place], [address] , tel: [phone] [facility] Urinary frequency 4 Bridgetzek Xochitl. [address], [place], [place], [address], . tel:[phone] OFFICE HVGMF-TGT-VPF [facility], [address], [place], [place], [address] , tel: [phone] [facility] Chronic Conditions (chief complaint) Hypertensive chronic kidney disease with stage 1 through stage 4 chronic kidney disease, or unspecified chronic kidney diseaseStage 3a chronic kidney diseaseOther emphysemaIron deficiency anemia, unspecified iron deficiency anemia type 4 Cizek Xochitl. [address], [place], [place], [address], . tel:[phone] Referring Provider: Xochitl Perez, [address], [place], [address] . tel:[phone] Transitional Care- First 7 Days Of Discharge [facility], [address], [place], [place], [address] , tel: [phone] [facility] Chronic Conditions (chief complaint) Hypertensive chronic kidney disease with stage 1 through stage 4 chronic kidney disease, or unspecified chronic kidney diseaseStage 3a chronic kidney diseaseAcute cystitis without hematuriaHypona tremiaHypokalem iaLeukocytosis, unspecified type 4 Felicia Leung. [address], [place], [place], [address], . tel:[phone] Referring Provider: Xochitl Perez, [address], [place], [address] . [phone] [facility], [address], [place], [place], [address] , tel: [phone] [facility] No Information 4 Felicia Leung. [address], [place], [place], [address], . tel:[phone] Referring Provider: Xochitl Perez, [address], [place], [address] . tel:[phone] OFFICE MNWJY-OBL-DXD [facility], [address], [place], [place], [address] , tel: [phone] [facility] Chronic Conditions (chief complaint) Hypertensive chronic kidney disease with stage 1 through stage 4 chronic kidney disease, or unspecified chronic kidney diseaseStage 3a chronic kidney diseaseBilatera l primary osteoarthritis of kneeIron deficiency anemia, unspecified iron deficiency anemia typeOther emphysemaEssent ial (primary) hypertension 3 Felicia Leung. [address], [place], [place], [address], . tel:[phone] Referring Provider: Xochitl Perez, [address], [place], [address] . tel:[phone] OFFICE EYKLA-HFQ-SSK [facility], [address], [place], [place], [address] , tel: [phone] [facility] Chronic Conditions (chief complaint) Other emphysemaHypert ensive chronic kidney disease with stage 1 through stage 4 chronic kidney disease, or unspecified chronic kidney diseaseStage 3a chronic kidney diseaseBilatera l primary osteoarthritis of kneeHypoxia 3 Felicia Leung. [address], [place], [place], [address], . [phone] Referring Provider: Xochitl Perez, [address], [place], [address] . tel:[phone] OFFICE NGSFP-XNR-LRS [facility], [address], [place], [place], [address] , tel: [phone] [facility] Chronic Conditions (chief complaint) Other emphysemaHypoxi aPain in left knee 3 Felicia Leung. [address], [place], [place], [address], . [phone] Referring Provider: Xochitl Perez, [address], [place], [address] . tel:[phone] OFFICE OSQLP-BJX-NDS [facility], [address], [place], [place], [address] , tel:[phone] [facility] acute visit (chief complaint) Hypertensive chronic kidney disease with stage 1 through stage 4 chronic kidney disease, or unspecified chronic kidney diseaseStage 3a chronic kidney diseasePain in left kneePain in right kneeGastroesoph ageal reflux disease with esophagitis without hemorrhage 3 Nohemi Mckeon. [address], [place], [place], [address], [place]. tel:[phone] Referring Provider: Xochitl Perez, [address], [place], [address] . [phone] [facility], [address], [place], [place], [address] , tel:[phone] [facility] No Information 3 Km Stokes. [address] [facility], [address] [address], [place], [place], [address], [place]. tel:[phone] Referring Provider: Xochitl Perez, [address], [place], [address] . tel:[phone] [facility], [address], [place], [place], [address] , [place] tel:[phone] [facility] Information 3 Maikel Stein. [address] [place], [address], . [phone] Referring Provider: Xochitl Perez, [address], [place], [address] . tel:[phone] [facility], [address], [place], [place], [address] , [place] tel: [phone] [facility] Iron deficiency anemia, unspecified iron deficiency anemia type 3 Felicia Leung. [address], [place], [place], [address], [place]. [phone] OFFICE ZBUIV-YEZ-YIK [facility], [address], [place], [place], [address] , [place] tel: [phone] [facility] Medicare preventive (chief complaint)C hronic Conditions (chief complaint) Hypertensive chronic kidney disease with stage 1 through stage 4 chronic kidney disease, or unspecified chronic kidney diseaseStage 3a chronic kidney diseaseOther emphysemaAthero sclerosis of aortaSenile purpuraMedicare annual wellness visit, subsequentOsteo penia of multiple sitesAnemia, unspecified typeRight wrist fracture, sequelaImpacted cerumen, bilateralMild cognitive impairment 3 Felicia Leung. [address], [place], [place], [address], [place]. tel:[phone] Referring Provider: Xochitl Perez, [address], [place], [address] . tel:[phone] OFFICE PMAVF-XJI-OVL [facility], [address], [place], [place], [address] , [place] [phone] [facility] acute visit (chief complaint) Diarrhea, unspecified typeHypertensiv e chronic kidney disease with stage 1 through stage 4 chronic kidney disease, or unspecified chronic kidney diseaseStage 3a chronic kidney disease 3 Nohemi Mckeon. [address], [place], [place], [address], . tel:[phone] Referring Provider: Xochitl Perez, [address], [place], [address] . tel:[phone] [facility], [address], [place], [place], [address] , [phone] [facility] No Information 3 Felicia Lindsay. [address] [place] [address], [address], . tel:[phone] Referring Provider: Xochitl Perez, [address], [place], [address] . tel:[phone] OFFICE SGVSO-TJH-RPQ [facility], [address], [place], [place], [address] , [phone] [facility] Chronic Conditions (chief complaint) Hypertensive chronic kidney disease with stage 1 through stage 4 chronic kidney disease, or unspecified chronic kidney diseaseStage 3a chronic kidney diseasePeripher al vascular diseaseAtherosc lerosis of aortaOther emphysema 3 Felicia Leung. [address], [place], [place], [address], . tel:[phone] Referring Provider: Xochitl Perez, [address], [place], [address] . tel:[phone] OFFICE CGXKX-CZO-RHJ [facility], [address], [place], [place], [address] , tel:[phone] [facility] Chronic Conditions (chief complaint) Hypertensive chronic kidney disease with stage 1 through stage 4 chronic kidney disease, or unspecified chronic kidney diseaseStage 3a chronic kidney diseasePain in right kneePain in left kneeOther chronic painLumbar radiculopathy 2 Felicia Leung. [address], [place], [place], [address], [place]. tel:[phone] Referring Provider: Xochitl Perez, [address], [place], [address] . tel:[phone] [facility], [address], [place], [place], [address] , tel:[phone] [facility] No Information 2 Felicia Leung. [address], [place], [place], [address], [place]. tel:[phone] Referring Provider: Xochitl Perez, [address], [place], [address] . tel:[phone] OFFICE FSNWD-HSH-XXR ANDED [facility], [address], [place], [place], [address] , tel:[phone] [facility] Chronic Conditions (chief complaint) Hypertensive chronic kidney disease with stage 1 through stage 4 chronic kidney disease, or unspecified chronic kidney diseaseStage 3a chronic kidney diseaseLumbar radiculopathy 2 Felicia Leung. [address], [place], [place], [address], [place]. tel:[phone] Referring Provider: Xochitl Perez, [address], [place], [address] . tel:[phone] [facility], [address], [place], [place], [address] , [place] tel:[phone] [facility] No Information 2 Brenna Stokes. [address], [place], [place], [address], [place]. tel:[phone] Referring Provider: Garfield Basilio, [address] [facility] [address], [place], [address]. tel:[phone] [facility], [address], [place], [place], [address] , [place] tel:[phone] [facility] No Information 2 Jaleel Jones. [address], [place], [place], [address], [place]. tel:[phone] Referring Provider: Xochitl Perez, [address], [place], [address] . tel:[phone] OFFICE WUWKY-JWT-VKP [facility], [address], [place], [place], [address] , tel:[phone] [facility] Hypertensive chronic kidney disease with stage 1 through stage 4 chronic kidney disease, or unspecified chronic kidney diseaseStage 3a chronic kidney diseaseAtherosc lerosis of aortaPeripheral vascular disease 2 Felicia Leung. [address], [place], [place], [address], [place]. tel:[phone] Referring Provider: Xochitl Perez, [address], [place], [address] . tel:[phone] OFFICE MZHND-QFT-EUD [facility], [address], [place], [place], [address] , [place] tel:[phone] [facility] acute visit (chief complaint) Superficial phlebitisBenign essential hypertension Jul- 2 Nohemi Mckeon. [address], [place], [place], [address], [place]. tel:[phone] Referring Provider: Xochitl Perez, [address], [place], [address] . tel:[phone] OFFICE/OUTPAT IENT VISIT EST [facility], [address], [place], [place], [address] , tel:[phone] [facility] DehydrationHype rtensive chronic kidney disease with stage 1 through stage 4 chronic kidney disease, or unspecified chronic kidney disease 2 Felicia Leung. [address], [place], [place], [address], . tel:[phone] Referring Provider: Xochitl Perez, [address], [place], [address] . tel:[phone] OFFICE PQHXU-VLV-KNH [facility], [address], [place], [place], [address] , tel: [phone] [facility] Chronic Conditions (chief complaint) Acute UTIDehydrationB enign hypertensive renal diseaseStage 3a chronic kidney disease Apr-0 8 2 Cizek Xochitl. [address], [place], [place], [address], [place]. tel:[phone] Referring Provider: Xochitl Perez, [address], [place], [address] . tel:[phone] OFFICE FUSHZ-JRX-MSO [facility], [address], [place], [place], [address] , tel:[phone] [facility] Chronic Conditions (chief complaint) Benign hypertensive renal diseaseOther emphysemaStage 3a chronic kidney diseaseDDD (degenerative disc disease), cervicalBilater al primary osteoarthritis of knee Jun-0 2 2 Cizek Xochitl. [address], [place], [place], [address], [place]. [phone] Referring Provider: Xochitl Perez, [address], [place], [address] . tel:[phone] OFFICE UMKOD-CYG-ZFB [facility], [address], [place], [place], [address] , tel:[phone] [facility] Chronic Conditions (chief complaint) Benign hypertensive renal diseaseStage 3a chronic kidney diseaseOther emphysemaDDD (degenerative disc disease), cervical Dec-0 1 Cizek Xochitl. [address], [place], [place], [address], [place]. tel:[phone] Referring Provider: Xochitl Perez, [address], [place], [address] . tel:[phone] OFFICE KISPU-KKI-SIJ ANDCHI [facility], [address], [place], [place], [address] , tel:[phone] [facility] Chronic Conditions (chief complaint) Benign hypertensive renal diseaseStage 3a chronic kidney diseaseThoracic aortic aneurysm without rupture Sep-0 - 1 Felicia Leung. [address], [place], [place], [address], . tel:[phone] Referring Provider: Xochitl Perez, [address], [place], [address] . tel:[phone] OFFICE BQHZE-MFM-RPW ANDCHI [facility], [address], [place], [place], [address] , tel: [phone] [facility] Chronic Conditions (chief complaint) Benign hypertensive renal diseaseStage 3a chronic kidney diseaseOther emphysemaTear of right biceps muscle, subsequent encounter Sep-0 1 Felicia Leung. [address], [place], [place], [address], [place]. tel:[phone] Referring Provider: Xochitl Perez, [address], [place], [address] . tel:[phone] OFFICE HXDSQ-XJC-XYI [facility], [address], [place], [place], [address] , tel: [phone] [facility] Chronic Conditions (chief complaint) Benign hypertensive renal diseaseStage 3a chronic kidney diseaseThoracic aortic aneurysm without ruptureAtherosc lerosis of aortaSenile purpuraTear of right biceps muscle, subsequent encounter Apr-2 1 Felicia Leung. [address], [place], [place], [address], [place]. tel:[phone] Referring Provider: Xochitl Perez, [address], [place], [address] . tel:[phone] [facility], [address], [place], [place], [address] , tel: [phone] [facility] Strain of muscle, fascia and tendon of other parts of biceps, right arm, initial encounter Apr-2 3- 1 Felicia Leung. [address], [place], [place], [address], [place]. tel:[phone] OFFICE VCGFO-KGP-DIZ [facility], [address], [place], [place], [address] , tel: [phone] [facility] acute visit (chief complaint) Tear of right biceps muscle, initial encounterBenign hypertensive renal diseaseStage 3a chronic kidney disease Jul- 1 Nohemi Mckeon. [address], [place], [place], [address], . tel:[phone] Referring Provider: Xochitl Perez, [address], [place], [address] . tel:[phone] OFFICE WAUSK-NOP-IUK [facility], [address], [place], [place], [address] , tel: [phone] [facility] Chronic Conditions (chief complaint) Hypertensive chronic kidney disease with stage 1 through stage 4 chronic kidney disease, or unspecified chronic kidney diseaseChronic kidney disease, stage 3 unspecifiedOthe r emphysema Jan- 0 Felicia Leung. [address], [place], [place], [address], [place]. [phone] Referring Provider: Xochitl Perez, [address], [place], [address] . tel:[phone] OFFICE KCTLR-BNA-SXZ [facility], [address], [place], [place], [address] , tel: [phone] [facility] Chronic Conditions (chief complaint) Other emphysemaThorac ic aortic aneurysm without ruptureHyperten sive chronic kidney disease with stage 1 through stage 4 chronic kidney disease, or unspecified chronic kidney diseaseChronic kidney disease, stage 3 (moderate)Vitam in D deficiencyFoot pain, right Sep-0 0 Felicia Leung. [address], [place], [place], [address], [place]. [phone] Referring Provider: Xochitl Perez, [address], [place], [address] . tel:[phone] [facility], [address], [place], [place], [address] , [place] tel:[phone] [facility] No Information 0 Brenna Stokes. [address], [place], [place], [address], [place]. tel:[phone] Referring Provider: Xochitl Perez, [address], [place], [address] . tel:[phone] [facility], [address], [place], [place], [address] , tel:[phone] [facility] Breast nodule 0 Felicia Leung. [address], [place], [place], [address], [place]. [phone] [facility], [address], [place], [place], [address] , tel:[phone] [facility] No Information 0 Hank Ricci. [address], [place], [place], [address], [place]. tel:[phone] Referring Provider: Xochitl Perez, [address], [place], [address] . tel:[phone] TELEPHONE E&M SERVICE BY A PHYSICIAN;5-1 0 MINUTES OF MEDICAL DISCUSSION [facility], [address], [place], [place], [address] , tel:[phone] [facility] Chronic Conditions (chief complaint) Other emphysemaAllerg ic dermatitis Jul-2 0 Felicia Leung. [address], [place], [place], [address], [place]. [phone] Referring Provider: Xochitl Perez, [address], [place], [address] . tel:[phone] OFFICE CXUPF-XRD-MKM RENETTA [facility], [address], [place], [place], [address] , tel:[phone] [facility] Chronic Conditions (chief complaint) Essential hypertensionOth er emphysemaThorac ic aortic aneurysm without ruptureSenile purpuraAtherosc lerosis of aorta Mar- 0-202 0 Felicia Leung. [address], [place], [place], [address], [place]. tel:[phone] Referring Provider: Xochitl Perez, [address], [place], [address] . tel:[phone] [facility], Box [facility], [place], [place], [address] , [place] tel:[phone] [facility] No Information 0 Felicia Lindsay. [address], [place], [address], . tel:[phone] Referring Provider: Kike Barbour, [address] [place] [address], [address] . tel:[phone] [facility], [address], [address] , tel:[phone] [facility] Periumbilical abdominal pain 0 Km Stoeks. [address] [place] [address], [address], [place]. tel:[phone] [facility], [address] [address], [place], [place], [address] , [place] tel:[phone] [facility] No Information 0 Km Stokes. [address] [place] [address], [address], [place]. tel:[phone] Referring Provider: Xochitl Perez, [address], [place], [address] . tel:[phone] [facility], [address] [place] [address], [address] , [place] tel:[phone] [facility] No Information 0 Km Stokes. [address] [place] [address], [address], [place]. tel:[phone] Referring Provider: Xochitl Perez, [address], [place], [address] . tel:[phone] OFFICE KNAGR-WWB-JBO RENETTA [facility], [address], [place], [place], [address] , tel: [phone] [facility] Chronic Conditions (chief complaint) Essential hypertensionOth er emphysemaRight lower quadrant abdominal painAnemia, unspecified type 9 Felicia Lueng. [address], [place], [place], [address], . tel:[phone] Referring Provider: Xochitl Perez, [address], [place], [address] . tel:[phone] OFFICE WBJRE-AGI-MXW [facility], [address], [place], [place], [address] , tel: [phone] [facility] Chronic Conditions (chief complaint) Essential hypertensionOth er emphysemaAnkle edema, bilateralOnycho mycosis 9 Felicia Leung. [address], [place], [place], [address], . tel:[phone] Referring Provider: Xochitl Perez, [address], [place], [address] . tel:[phone] OFFICE QXWCW-KAT-XFC [facility], [address], [place], [place], [address] , tel: [phone] [facility] acute visit (chief complaint) Left foot painTobacco user 9 Kodak Cannon. [address], [place], [place], [address], [place]. tel:[phone] Referring Provider: Xochitl Perez, [address], [place], [address] . tel:[phone] [facility], [address], [place], [place], [address] , tel: [phone] [facility] No Information 9 Felicia Leung. [address], [place], [place], [address], . tel:[phone] Referring Provider: Xochitl Perez, [address], [place], [address] . tel:[phone] [facility], [address], [place], [place], [address] , tel: [phone] [facility] Chronic Conditions (chief complaint) Essential hypertensionOth er emphysemaSenile purpuraLung nodulesThoracic aortic aneurysm without ruptureTobacco use 9 Felicia Leung. [address], [place], [place], [address], [place]. tel:[phone] Referring Provider: Xochitl Perez, [address], [place], [address] . tel:[phone] [facility], [address], [place], [place], [address] , tel: [phone] [facility] Chronic Conditions (chief complaint) Essential hypertensionOth er emphysemaTobacc o consumptionPneu monia of both lower lobes due to infectious organism Fe 9 Felicia Leung. [address], [place], [place], [address], [place]. tel:[phone] Referring Provider: Xochitl Perez, [address], [place], [address] . tel:[phone] [facility], [address], [place], [place], [address] , tel: [phone] [facility] Chronic Conditions (chief complaint) Pneumonia of both lower lobes due to infectious organismOther emphysemaTobacc o consumptionEsse ntial hypertensionSen ile purpura 9 Felicia Leung. [address], [place], [place], [address], [place]. tel:[phone] Referring Provider: Xochitl Perez, [address], [place], [address] . tel:[phone] [facility], [address], [place], [place], [address] , [place] tel: [phone] [facility] Abnormal chest CT 8 Hank Ricci. [address], [place], [place], [address], [place]. tel:[phone] Referring Provider: Xochitl Perez, [address], [place], [address] . tel:[phone] [facility], [address], [place], [place], [address] , tel: [phone] [facility] Annual physical examEssential hypertensionOst eopeniaAnxiety disorder, unspecifiedVita min D deficiencyTobac co consumptionGene ralized abdominal painBilateral impacted cerumen 8 Cidawit Leung. [address], [place], [place], [address], [place]. [phone] Referring Provider: Xochitl Perez, [address], [place], [address] . tel:[phone] [facility], [address], [place], [place], [address] , [place] tel: [phone] [facility] Encounter for screening for osteoporosis 8 Felicia Leung. [address], [place], [place], [address], [place]. [phone] [facility], [address], [place], [place], [address] , [place] tel: [phone] [facility] Essential hypertensionSen ile purpuraAnxiety disorder, unspecified 8 Cizemarilyn Xochitl. [address], [place], [place], [address], [place]. tel:[phone] Referring Provider: Xochitl Perez, [address], [place], [address] . tel:[phone] [facility], [address], [place], [place], [address] , [place] tel: [phone] [facility] OsteopeniaEssen tial hypertensionSen ile purpuraEncounte r for gynecological examination (general) (routine) without abnormal findingsPolyost eoarthritis, unspecifiedAnxi ety disorder, unspecifiedFall , initial encounter 7 Cizek Xochitl. [address], [place], [place], [address], [place]. tel:[phone] Referring Provider: Xochitl Perez, [address], [place], [address] . tel:[phone] [facility], [address], [place], [place], [address] , tel: [phone] [facility] Essential hypertensionAcu te pain of right shoulder 0 2-201 7 Cizek Xochitl. [address], [place], [place], [address], [place]. tel:[phone] Referring Provider: Xochitl Perez, [address], [place], [address] . tel:[phone] [facility], [address], [place], [place], [address] , tel: [phone] [facility] Essential hypertensionSen ile purpura 4-201 6 Cizek Xochitl. [address], [place], [place], [address], [place]. tel:[phone] Referring Provider: Xochitl Perez, [address], [place], [address] . tel:[phone] [facility], [address], [place], [place], [address] , [place] tel: [phone] [facility] No Information 3-201 6 Cizek Xochitl. [address], [place], [place], [address], [place]. tel:[phone] [facility], [address], [place], [place], [address] , tel: [phone] [facility] Essential hypertension 0 5-201 6 Cizek Xochitl. [address], [place], [place], [address], [place]. tel:[phone] Referring Provider: Xochitl Perez, [address], [place], [address] . tel:[phone] [facility], [address], [place], [place], [address] , [place] tel: [phone] [facility] Elevated blood pressure (not hypertension) 6-201 6 Cizek Xochitl. [address], [place], [place], [address], [place]. tel: [phone] [facility], [address], [place], [place], [address] , [place] tel: [phone] [facility] Essential hypertension 9 6 Cizek Xochitl. [address], [place], [place], [address], [place]. tel: [phone] Referring Provider: Xochitl Perez, [address], [place], [address] . tel:[phone] [facility], [address], [place], [place], [address] , tel: [phone] [facility] Essential hypertensionAcu te viral conjunctivitis of both eyes 4 6 Cizek Xochitl. [address], [place], [place], [address], [place]. tel: [phone] Referring Provider: Xochitl Perez, [address], [place], [address] . tel:[phone] [facility], [address], [place], [place], [address] , [place] tel: [phone] [facility] Osteopenia 0 6 Cizek Xochitl. [address], [place], [place], [address], [place]. tel: [phone] [facility], [address], [place], [place], [address] , [place] tel: [phone] [facility] Right-sided low back pain without sciaticaOsteope niaEssential hypertension 0-201 6 Detmer Bety. [address], [place], [place], [address], [place]. tel:[phone] Referring Provider: Xochitl Perez, [address], [place], [address] . tel:[phone] [facility], [address], [place], [place], [address] , [place] tel: [phone] [facility] Routine gynecological examOsteoarthro sis, Unspecified, Unspecified SiteOsteopeniaE levated blood pressure (not hypertension)Ce rumen impactionAbdomi nal painAnxiety state, unspecified 5 Felicia Leung. [address], [place], [place], [address], [place]. tel:[phone] Referring Provider: Xochitl Perez, [address], [place], [address] . tel:[phone] [facility], [address], [place], [place], [address] , [place] tel: [phone] [facility] Elevated blood pressure (not hypertension)Os teoarthrosis, generalized, involving unspecifiedToba patient account representative useAnxiety state, unspecifiedOste openiaCerumen impactionRoutin e gynecological exam 3 Felicia Leung. [address], [place], [place], [address], [place]. tel:[phone] Referring Provider: Xochitl Perez, [address], [place], [address] . tel:[phone] [facility], [address], [place], [place], [address] , [place] tel: [phone] [facility] Urinary tract infection, site not specifiedAcute upper respiratory infections of unspecified siteTobacco use disorder 3 Detmer Bety. [address], [place], [place], [address], [place]. tel:[phone] Referring Provider: Xochitl Perez, [address], [place], [address] . tel:[phone] [facility], [address], [place], [place], [address] , [place] tel: [phone] [facility] Osteoarthrosis, generalized, involving unspecified siteAnxiety state, unspecifiedToba patient account representative use disorderUrinary tract infection, site not specifiedElevat ed blood pressure reading without diagnosis of hypertension 2 Felicia Leung. [address], [place], [place], [address], [place]. tel:[phone] Referring Provider: Xochitl Perez, [address], [place], [address] . tel:[phone] [facility], [address], [place], [place], [address] , [place] tel: [phone] [facility] Urinary tract infection 2 Detmer Bety. [address], [place], [place], [address], [place]. tel:[phone] [facility], [address], [place], [place], [address] , tel: [phone] [facility] Frequency of urinationElevat ed blood pressure (not hypertension)To bacco use 2 Detmer Bety. [address], [place], [place], [address], [place]. tel:[phone] Referring Provider: Xochitl Perez, [address], [place], [address] . tel:[phone] [facility], [address], [place], [place], [address] , [place] tel: [phone] [facility] Shoulder pain, left 2 Detmer Bety. [address], [place], [place], [address], [place]. tel:[phone] Referring Provider: Xochitl Perez, [address], [place], [address] . tel:[phone] [facility], [address], [place], [place], [address] , tel: [phone] [facility] Superficial injury of cornea 1 Siri Anthony. [address], [place], [place], [address]. tel:[phone] Referring Provider: Xochitl Perez, [address], [place], [address] . tel:[phone] [facility], [address], [place], [place], [address] , tel: [phone] [facility] Routine gynecological examinationAnxi ety state, unspecifiedOste oarthrosis, Unspecified, Unspecified SiteImpacted cerumen 8-201 1 Cizek Xochitl. [address], [place], [place], [address], [place]. tel:[phone] Referring Provider: Xochitl Perez, [address], [place], [address] . tel:[phone] [facility], [address], [place], [place], [address] , tel: [phone] [facility] PAIN IN LIMBREDNESS/DIS CHARGE OF EYE 1201 1 Cizek Xochitl. [address], [place], [place], [address], [place]. tel: [phone] [facility], [address], [place], [place], [address] , tel: [phone] [facility] TOBACCO USE DISORDER 7-201 0 Cizek Xochitl. [address], [place], [place], [address], [place]. tel: [phone] [facility], [address], [place], [place], [address] , [place] tel: [phone] [facility] ANXIETY STATE NOSROUTINE MEDICAL EXAMSCREEN MAL NEOP-RECTUM 5-200 9 Cizek Xochitl. [address], [place], [place], [address], [place]. tel: [phone] [facility], [address], [place], [place], [address] , tel: [phone] [facility] PURE HYPERCHOLESTERO YELENA 8-200 6 Cizek Xochitl. [address], [place], [place], [address], [place]. tel: [phone] [facility], [address], [place], [place], [address] , tel: [phone] [facility] GENERAL OSTEOARTHROSISL LOIS-TERM USE MEDS NEC Sep-0 1-200 5 Cizek Xochitl. [address], [place], [place], [address], . tel: [phone] [facility], [address], [place], [place], [address] , tel: [phone] [facility] [place] OTHER SPECF VACNATION Dec-0 3-200 2 Cizek Xochitl. [address], [place], [place], [address], . tel: [phone] [facility], [address], [place], [place], [address] , tel: [phone] [facility] HORMONE REPLACE POSTMENO Sep-2 6-200 0 Cizek Xochitl. [address], [place], [place], [address], [place]. tel: [phone] [facility], [address], [place], [place], [address] , tel: [phone] [facility] SCREEN-BLOOD DIS NOS August-0 9-200 0 Cizek Xochitl. [address], [place], [place], [address], . tel: [phone] [facility], [address], [place], [place], [address] , tel: [phone] [facility] SCREEN FOR HYPERTENSION Apr-0 6-200 0 Cizek Xochitl. [address], [place], [place], [address], . tel:[phone] Family History Family Member Type Diagnosis Age At Onset No Information Immunizations Vaccine Date Status Comments [facility], promise-sucrose, 30mcg/0.3mL dose, 12 years [...] er Payers Payer name Insurance type Covered constitution party ID Authoriza tion(s) [employer] [facility] PPO PLANS MB [id number] MEDICARE MB [id number] [employer] MDCR PPO PLANS MB [id number] MEDICARE MB [id number] [facility] OPEN ACCESS I II III CI [id number] [id number] MEDICARE MB [id number] [facility] OPEN ACCESS I II III CI [id number] [id number] [facility] OPEN ACCESS I II III CI [id number] S01 [facility] OPEN ACCESS I II III CI [id number] S01 [facility] HMO CI [id number] [facility] HMO CI [id number] [facility] HMO CI [id number] [facility] HMO CI [id number] Social History Type Description Quantity Date Captured Comments Alcohol Use Details Unknown Caffeine Use Details Unknown Tobacco Use Status No Information Smoking Status Former smoker Sex Female Chief Complaint And Reason For Visit No Information Reason For Referral Reason For Referral No Information Plan Of Treatment Date Type Action Status Goal Dietary manageme nt education, guidance, and counseling completed Referral Ordered: Ashwin Hinson -Pulmonology (related to Other emphysema) ordered Referral Referred To: Ashwin Hinson [address] [facility]
[address] [place], [address] [id number] Ordered: Referrals: Pulmonology. Ashwin Hinson. Evaluation/diagnostic/treatment - Level 3 ordered Referral Referred To: [address], [address] [phone] Ordered: CT scan of chest with contrast ordered Referral Referred To: [address] [place], [place], [id number] Ordered: Screening mammography of both breasts Appointment date/timeframe: 08/08/2024 ordered Referral Referred To: [address] [place], [place], [id number] Ordered: Colonoscopy, flexible; with biopsy, single or multiple Appointment date/timeframe: 11/05/2022 ordered Referral Referred To: [address] [place], [place], [id number] Ordered: Upper gastrointestinal endoscopy Appointment date/timeframe: 11/05/2022 ordered Referral Referred To: Robert Janneth THOMAS Scott5 Alberto Kumar
[address] [place], [address] [phone] Ordered: Referrals: Orthopedic Surgery. Robert Lagunas DO. Evaluation/diagnostic/treatment - Level 3 ordered Referral Referred To: [address] [place] [address], [id number] Ordered: VENECIA (ankle brachial index) ordered Referral Referred To: [address] [place] [address], [id number] Ordered: Complete Doppler ultrasound of arteries of both lower extremities ordered Referral Ordered: X-RAY EXAM OF KNEES Bilateral ordered Referral Ordered: Complete Doppler ultrasound of renal artery ordered Referral Ordered: Complete duplex scan of renal vessels ordered Referral Ordered: CT of right upper extremity without contrast Right Appointment date/timeframe: 10/09/2020 ordered Referral Referred To: [address] [place] [address], [id number] Ordered: MRI upper extremity oth than jt w/o contr matrl ordered Referral Ordered: X-RAY EXAM OF FOOT Right ordered Referral Referred To: [address] [place] [address], [id number] Ordered: Spot compression mammography of left breast Left breast ordered Referral Referred To: [address] [place] [address], [id number] Ordered: US breast left limited Left breast ordered Referral Referred To: [address] [place] [address], [id number] Ordered: SCREENING MAMMOGRAM (CAD) Bilateral breast Appointment date/timeframe: 07/19/2019 ordered Referral Referred To: [address] [place] [address], [id number] Ordered: CT angiography chest w/contrast/noncontrast Appointment date/timeframe: 07/19/2019 ordered Referral Ordered: CT abdomen and pelvis w contrast ordered Referral Referred To: [address] [facility]
[address], [id number] Ordered: COLONOSCOPY, Flexible, Proximal To Splenic, Diagnostic, Wor W/O Collection Of Sp Appointment date/timeframe: 06/01/2019 ordered Referral Referred To: [address], [id number] Ordered: EGD, FLEXIBLE, TRANSORAL, DIAGNOSTIC W/ COLLECTION OF SPECIMEN Appointment date/timeframe: 06/01/2019 ordered Referral Ordered: X-RAY EXAM OF FOOT Left ordered Referral Ordered: Chest Xray, 2 Views ordered Appointment Fara Valencia BOOKED Future Order: Radiology Order Co mplete Doppler ultrasound of renal artery ([id number]), Sent on: Sent Future Order: Radiology Order Co mplete duplex scan of renal vessels ([id number]), Sent on: Sent Future Order: Radiology Order MR I upper extremity oth than jt w/o contr matrl ([id number]), Sent on: Sent History Of Present Illness Encounter Date Complaint History Of Prese nt Illness Chronic Conditions *See Chronic Conditions HPI acute visit Patient presents for an ER follow up. She went to [facility] on 04/17/2024 for shortness of breath, [...] OTC medications. Chronic Conditions *See Chronic Conditions HPI Chronic Conditions Patient prese nts for an ER follow up. She went to [facility] on 04/17/2024 for shortness of breath, [...] and above. Chronic Conditions *See Chronic Conditions [facility] Chronic Conditions *See Chronic Conditions [facility] Chronic Conditions *See Chronic Conditions [facility] Chronic Conditions *See Chronic Conditions [facility] Medicare preventive A Health Ris k Assessment [...] changes made. chronic conditions *See Chronic Conditions [facility] Chronic Conditions *See Chronic Conditions [facility] Chronic Conditions *See Chronic Conditions [facility] Chronic Conditions *See Chronic Conditions [facility] Chronic Conditions *See Chronic Conditions [facility] Chronic Conditions *See Chronic Conditions [facility] Chronic Conditions *See Chronic Conditions [facility] Chronic Conditions *See Chronic Conditions [facility] acute visit Chief complaint: knee pain. Saw [...] and updated. Chronic Conditions *See Chronic Conditions HPI acute visit Chief complaint: diarrhea. Associated symptoms [...] frothy urine. Chronic Conditions *See Chronic Conditions [facility] Chronic Conditions *See Chronic Conditions [facility] Chronic Conditions *See Chronic Conditions [facility] Chronic Conditions *See Chronic Conditions [facility] acute visit Chief complaint: ankle pain. Painful lump and redness around her right ankle. This began 3 days ago. Tender to touch. Very warm to touch. No injury. Taking Tylenol and applying ice. Increased swelling after standing all day at work.Has hypertension. Taking meds. No chest pain or headache. Chronic Conditions *See Chronic Conditions [facility] Chronic Conditions *See Chronic Conditions [facility] Chronic Conditions *See Chronic Conditions [facility] Chronic Conditions *See Chronic Conditions [facility] Chronic Conditions *See Chronic Conditions [facility] Chronic Conditions *See Chronic Conditions [facility] acute visit Chief complaint: right upper arm [...] frothy urine. Chronic Conditions *See Chronic Conditions [facility] Chronic Conditions *See Chronic Conditions [facility] Chronic Conditions *See Chronic Conditions [facility] Chronic Conditions *See Chronic Conditions [facility] Chronic Conditions *See Chronic Conditions [facility] Chronic Conditions *See Chronic Conditions [facility] acute visit Chief complaint: left foot pain. [...] of osteopenia. Chronic Conditions *See Chronic Conditions HPI Chronic Conditions *See Chronic Conditions HPI Chronic Conditions *See Chronic Conditions HPI Functional Status Date Functional Assessmen t No [...] iron deficiency anemia type [facility].Use this to help with shortness of breath [...] unspecified chronic kidney disease Start doxycycline, t oalf 1 tablet twice daily for 7 days to treat. Can try warm compresses. Call if not improving. Related to Folliculitis Recommend Lomira nasal gel to help with this. Related [...] pressure is el evated in office, to [facility]. Related to Hypertensive chronic kidney disease with [...] cystitis without hematuria Stable on the BDE . Repeat in 2025. Daily walking and Vitamin D. Related to Osteopenia of multiple sites Stable. Related to Stage 3a chronic kidney disease Doing well. Normal m carmichaels testing. Schedule mammogram. Follow up in 3 [...] wellness visit, subsequent Stable. Observe. Related to Sen ile purpura Stable. Same regimen. Prevnar to day. [...] if you stay at home, use hand profile grinder and wash your hands frequently. Especially when [...] if you stay at home, use hand profile grinder and wash your hands frequently. Especially when [...] if you stay at home, use hand profile grinder and wash your hands frequently. Especially when [...] Essential hypertension Stable. Observe. Related to Sandra jhaura BP is repeated and i s 142/84. [...]
--- OUTSIDE RECORDS SUMMARY | 2024-07-01 12:31 | XMS_ITS | Continuity of Care Document ---
Author Organization [facility] Address [address] [facility] [address] [place] [address] Phone Care Team Providers Care Gold Burnisher Name Role Phone Woodrow Mendoza MD Unavailable [...] Providers Copied on Encounter [facility], [address] [address], [place], [address], [place] tel:[phone] [facility] No Information 3 Kelly Troy. [address], [place], [place], [address]. tel:[phone] [facility], [address], [place], [address], [place] tel:[phone] [facility] S/P left knee arthroscopyPri dana osteoarthritis of right knee 3 Kelly Troy. [address], [place], [place], [address]. tel:[phone] Referring Provider: Xochitl Duarte, [address], [place], [address] . tel:[phone] [facility], [address], [place], [address], [place] tel:[phone] [facility] No Information 3 Kelly Troy. [address], [place], [place], [address]. tel:[phone] [facility], [address], [place], [address], [place] tel:[phone] [facility] Tear of medial meniscus of left knee, current, unspecified tear type, subsequent encounterPrima ry osteoarthritis of left knee Jan- 3 Kelly Troy. [address], [place], [place], [id number]. tel:[phone] OFFICE/OUTPA TIENT VISIT EST [facility], [address], [place], [address], [place] tel:[phone] [facility] Tear of medial meniscus of left knee, current, unspecified tear type, subsequent encounterPrima ry osteoarthritis of right knee Jan- 3 Kelly Troy. [address], [place], [place], [address]. tel:[phone] Referring Provider: [address], [place], [address] . tel:[phone] [facility], [address], [place], [address], [place] tel:[phone] [facility] Primary osteoarthritis of left kneePatellofem oral arthritis of right knee Sep-1 3 Oclin Franny. [address], [place], [place], [address]. tel:[phone] Referring Provider: [address], [place], [address] . tel:[phone] [facility], [address], [place], [address], [place] tel:[phone] [facility] Primary osteoarthritis of left kneePatellofem oral arthritis of right knee Sep-0 6- 3 Coiln Franny. [address], [place], [place], [address]. tel:[phone] Referring Provider: [address], [place], [address] . tel:[phone] [facility], [address] [address], [place], [address], [place] tel:[phone] [facility] Right knee pain, unspecified chronicityPate llofemoral arthritis of right kneeTear of medial meniscus of left knee, initial encounterPrima ry osteoarthritis of left knee 3 Cristi Franny. [address], [place], [place], [address]. tel:[phone] Referring Provider: Xochitl Duarte, [address], [place], [address] . tel:[phone] [facility], [address] [facility] [address], [place], [address], [place] tel:[phone] [facility] Unspecified internal derangement of left knee 3 No Information Referring Provider: Woodrow Mendoza, [address], [place], [address] . tel:[phone] OFFICE/OUTPA TIENT VISIT NEW [facility], [address] [facility] [address], [place], [address], [place] tel:[phone] [facility] Internal derangement of left kneeLeft knee pain, unspecified chronicity 3 Kelly [address]. [address], [place], [place], [address]. tel:[phone] Referring Provider: Xochitl Duarte, [address], [place], [address] . tel:[phone] Family History Family Member Type Diagnosis Age At Onset Mother Problem Alive and well Father Problem (finding) Payers Payer name Insurance type Covered constitution party ID Authoriza tion(s) Medicare E2 OT [id number] HLK [place] [id number] or after OT [id number] Social History Type Description Quantity Date Captured [...]
== END 2024-07-01 12:29 | disposition home or self-care (01) ==
LOC: ANHLAB 12:29
PROVIDERS: Visit Provider Internal Medicine Critical Care Medicine
DX: J98.4 Other disorders of lung (principal)
CPT/HCPCS: 87015; 87070; 87102; 87116; 87205; 87206

== ENCOUNTER 2024-07-06 13:22 | Outpatient (CLI) | payer MEDICARE, SELFPAY ==
--- NOTE | ~2024-07-06 | PE_ITS ---
EXAMINATION: PET skull to mid thigh DATE: 07/06/2024 15:05 INDICATION: Lung nodule TECHNIQUE: Blood glucose level was 85 mg/dL. 11.385 mCi of 18-fluorodeoxyglucose (18-FDG) was adminis tered i.v. Low dose computed tomography (CT) images were acquired from the base of the brain to the p roximal thighs for attenuation correction and anatomic localization. Positron emission tomography (PE T) images were acquired in the same distribution beginning 59 minutes after injection. Images includi ng fused PET/CT images were reconstructed in axial, coronal, and sagittal planes. Automated exposure control technique was employed. The dose-length product was 761.50mGy-cm. COMPARISON: Chest CT dated 05/19/2024 and 04/17/2024 FINDINGS: Head/neck: There is symmetric increased activity in the oral cavity, palatine and lingual tonsils, parotid gland s, submandibular glands, laryngeal muscles and ocular muscles without CT correlate, likely physiolog ic. There is linear increased FDG uptake extending anteroposteriorly along the right C3-C4 facet join t with corresponding severe osteoarthritis on CT and likely degenerative in etiology. No pathological ly enlarged cervical lymphadenopathy or suspicious foci of increased FDG uptake in the visualized hea d or neck. Chest: Moderate emphysema. Continued evolution in patchy bilateral lung disease with near complete resolutio n of the previously large masslike region of consolidation seen on study from 04/17/2024 which develop ed some central cavitation on the more recent study from 05/19/2024 which is continued to significantl y decrease in the size now with horizontal bandlike configuration consistent with residual atelectasi s/scarring related to prior pneumonia. There is mild FDG uptake associated with a new small nodular o pacity in the inferior right upper lobe with maximal SUV of 1.7, new patchy airspace opacities in the bilateral lower lobes with maximal SUV of 3.7 on the right and 2.4 on the left and a larger region o f consolidation at the posterior lingula with maximal SUV of 5.6. These are all new since the prior s tudy consistent with pneumonia. No pleural effusion. Heart size is normal. No pericardial effusion. T horacic aorta is normal in caliber. No pathologically enlarged or abnormally FDG avid thoracic lympha denopathy. Small focus of increased activity at the medial aspect of the right supraspinatus muscle w ithout radiologic correlate which is likely physiologic. Small focus of increased uptake along the ba silic vein at the distal right upper arm which is a small focus of uptake along the brachial vein lik hebert representing minimal extravasation at the site of injection and adjacent mild lymphatic uptake ac tivity. The mild uptake along the left triceps muscle without radiologic correlate also likely physio logic. Abdomen/pelvis/proximal thighs: Physiologic renal accumulation and excretion of FDG activity in the kidneys, bladder and along portio ns of ureters. Normal degree and heterogenous pattern of increased uptake throughout the liver withou t radiologic correlate or dominant FDG avid lesion. The gallbladder, pancreas, spleen and bilateral a drenal glands are normal. Mild uptake scattered throughout the bowels without radiologic correlate, a lso likely physiologic. No other abnormal foci of increased FDG uptake or pathologically enlarged lym phadenopathy in the abdomen, pelvis or proximal thighs. Musculoskeletal: Severe lumbar spondylosis. No other suspicious lytic, blastic or abnormally FDG avid bone lesions to suggest osseous metastatic disease. IMPRESSION: 1. Mild uptake associated with multiple new regions of consolidation and patchy airspace opacities in both lungs which given the appearance, distribution and rapid progression most consistent with evolv ing pneumonia. Small region of discoid atelectasis without abnormal FDG uptake at the site of the ranulfo or large masslike opacity in the right middle lobe consistent with resolving pneumonia. 2. No other FDG avid lesions suspicious for primary malignancy or metastatic disease. Reviewed, dictated and finalized at location A. IMPRESSION: 1. Mild uptake associated with multiple new regions of consolidation and patchy airspace opacities in both lungs which given the appearance, distribution and rapid progression most consistent with evolving pneumonia. Small region of disc oid atelectasis without abnormal FDG uptake at the site of the prior large mass like opacity in the right middle lobe consistent with resolving pneumonia. 2. No other FDG avid lesions suspicious for primary malignancy or metastatic di sease.
--- OUTSIDE RECORDS SUMMARY | 2024-07-06 13:45 | XMS_ITS | Clinical Summary ---
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 Not on file Not on file Last Filed Vital Signs Vital Sign Reading Time Taken Comments Blood Pressure 150/90 04/15/2021 2:01 PM COPY HOLDER Pulse 58 04/15/2021 2:00 PM COPY HOLDER Temperature 36.7 C (98.1 F) 04/15/2021 2:00 PM COPY HOLDER Respiratory Rate 24 04/15/2021 2:00 PM COPY HOLDER Oxygen Saturation 96% 04/15/2021 2:00 PM COPY HOLDER Inhaled Oxygen Concentration - - Weight 74.3 kg (163 lb 12.8 oz) 04/15/2021 2:02 PM COPY HOLDER Height 170.2 cm (5' 7 ) 04/15/2021 2:02 PM COPY HOLDER Body Mass Index 25.65 04/15/2021 2:02 PM COPY HOLDER Plan of Treatment Health Maintenance Due Date [...] patient's age to complete this topic Insurance [employer] Care Teams Ambulance Attendant Relationship Specialty Start Date End Date Xochitl Duarte MD [address] [place] [address] PCP - General 02/18/21
--- OUTSIDE RECORDS SUMMARY | 2024-07-06 13:45 | XMS_ITS | Clinical Summary ---
Author Organization [facility] [address] [facility] Address [address] [place] [address] Care Team Providers Care Airplane Patroller Name Role Phone No, Physician Primary Care Provider [phone] Allergies Active Allergy Reactions Criticality Noted Date [...] on file Legal Sex Female 2:25 AM DECK SCALER Gender Identity Not on file Sexual Orientation Not on file Obstetrics History Last Filed Vital Signs Vital Sign Reading Time Taken Comments Blood Pressure 134/96 04/24/2021 9:01 AM DECK SCALER Pulse 54 04/24/2021 8:53 AM DECK SCALER Temperature 36.3 C (97.4 F) 04/24/2021 8:53 AM DECK SCALER Respiratory Rate 16 04/24/2021 8:53 AM DECK SCALER Oxygen Saturation 99% 04/24/2021 8:53 AM DECK SCALER Inhaled Oxygen Concentration - - Weight 68 kg (150 lb) 03/10/2024 10:36 AM DECK SCALER Height 167.6 cm (5' 6 ) 03/10/2024 10:36 AM DECK SCALER Body Mass Index 24.21 03/10/2024 10:36 AM DECK SCALER Plan of Treatment Health Maintenance Due Date [...] season) 2023 03/09/2021, 06/21/2020, 06/02/2020 Influenza Vaccine (Season Ended) 2024 12/04/2020, 12/13/2019, 01/03/2019 Insurance AETNA MEDICARE AETNA MEDICARE Care Teams Airplane Patroller Relationship Specialty Start Date End Date No, Physician PCP - General 04/24/21
--- OUTSIDE RECORDS SUMMARY | 2024-07-06 13:45 | XMS_ITS | Referral Summary ---
Author Organization [facility] [address] [place] Address [address] [place] [address] Care Team Providers Care Cut Off Sawyer Log Name Role Phone No, Physician Primary Care Provider [phone] Allergies Active Allergy Reactions Criticality Noted Date [...] on file Legal Sex Female 2:25 AM CORE EXTRUDER Gender Identity Not on file Sexual Orientation Not on file Last Filed Vital Signs Vital Sign Reading Time Taken Comments Blood Pressure 134/96 04/24/2021 9:01 AM CORE EXTRUDER Pulse 54 04/24/2021 8:53 AM CORE EXTRUDER Temperature 36.3 C (97.4 F) 04/24/2021 8:53 AM CORE EXTRUDER Respiratory Rate 16 04/24/2021 8:53 AM CORE EXTRUDER Oxygen Saturation 99% 04/24/2021 8:53 AM CORE EXTRUDER Inhaled Oxygen Concentration - - Weight 68 kg (150 lb) 03/10/2024 10:36 AM CORE EXTRUDER Height 167.6 cm (5' 6 ) 03/10/2024 10:36 AM CORE EXTRUDER Body Mass Index 24.21 03/10/2024 10:36 AM CORE EXTRUDER Plan of Treatment Not on file Insurance AETNA MEDICARE [employer] MEDIC[employer] Care Teams Cut Off Sawyer Log Relationship Specialty Start Date End Date No, Physician PCP - General 04/24/21
--- OUTSIDE RECORDS SUMMARY | 2024-07-06 13:46 | XMS_ITS | Continuity of Care Document ---
Author Organization [facility] Address [address] [facility] [address] [place] [address] Phone Care Team Providers Care Tire Groover Name Role Phone Woodrow Mendoza MD Unavailable [...] Providers Copied on Encounter [facility], [address] [address], [place], [address], [place] tel:[phone] [facility] No Information 3 Kelly Troy. [address], [place], [place], [address]. tel:[phone] [facility], [address], [place], [address], [place] tel:[phone] [facility] S/P left knee arthroscopyPri dana osteoarthritis of right knee 3 Kelly Troy. [address], [place], [place], [address]. tel:[phone] Referring Provider: Xocihtl Duarte, [address], [place], [address] . tel:[phone] [facility], [address], [place], [address], [place] tel:[phone] [facility] No Information 3 Kelly Troy. [address], [place], [place], [address]. tel:[phone] [facility], [address], [place], [address], [place] tel:[phone] [facility] Tear of medial meniscus of left knee, current, unspecified tear type, subsequent encounterPrima ry osteoarthritis of left knee Jan- 3 Kelly Troy. [address], [place], [place], [address]. tel:[phone] OFFICE/OUTPA TIENT VISIT EST [facility], [address], [place], [address], [place] tel:[phone] [facility] Tear of medial meniscus of left knee, current, unspecified tear type, subsequent encounterPrima ry osteoarthritis of right knee Jan- 3 Kelly Troy. [address], [place], [place], [address]. tel:[phone] Referring Provider: [address], [place], [address] . tel:[phone] [facility], [address], [place], [address], [place] tel:[phone] [facility] Primary osteoarthritis of left kneePatellofem oral arthritis of right knee Sep-1 3 Colin Franny. [address], [place], [place], [address]. tel:[phone] Referring Provider: [address], [place], [address] . tel:[phone] [facility], [address], [place], [address], [place] tel:[phone] [facility] Primary osteoarthritis of left kneePatellofem oral arthritis of right knee Sep-0 6- 3 Colin Franny. [address], [place], [place], [address]. tel:[phone] Referring Provider: [address], [place], [address] . tel:[phone] [facility], [address] [address], [place], [address], [place] tel:[phone] [facility] Right knee pain, unspecified chronicityPate llofemoral arthritis of right kneeTear of medial meniscus of left knee, initial encounterPrima ry osteoarthritis of left knee 3 Cristi Fr[address]. [address], [place], [place], [address]. tel:[phone] Referring Provider: Xochitl Duarte, [address], [place], [address] . tel:[phone] [facility], [address] [facility] [address], [place], [address], [place] tel:[phone] [facility] Unspecified internal derangement of left knee 3 No Information Referring Provider: Woodrow Mendoza, [address], [place], [address] . tel:[phone] OFFICE/OUTPA TIENT VISIT NEW [facility], [address] [facility] [address], [place], [address], [place] tel:[phone] [facility] Internal derangement of left kneeLeft knee pain, unspecified chronicity 3 Kelly Troy. [address], [place], [place], [address]. tel:[phone] Referring Provider: Xochitl Duarte, [address], [place], [address] . tel:[phone] Family History Family Member Type Diagnosis Age At Onset Mother Problem Alive and well Father Problem (finding) Payers Payer name Insurance type Covered green party ID Authoriza tion(s) Medicare E2 OT [id number] HLK [place] [id number] or after OT [id number] Social History Type Description Quantity Date Captured [...]
--- OUTSIDE RECORDS SUMMARY | 2024-07-06 13:46 | XMS_ITS | Continuity of Care Document ---
Author Organization [email or web address] Address [address] [place] [address] Phone Care Team Providers Care Supervisory Geographer Name Role Phone Xochitl Duarte MD Unavailable [...] INC PLATELETS AND DIFFERENTIAL ROUTINE VENIPUNCTURE OFFICE PEILZ-EPY-FUGNNVHL BODY MASS INDEX DOCD SYST BP LT 130 MM HG DIAST BP < 80 MM HG Chest Xray, 2 Views OFFICE FWAOH-NHP-BLQVQJCP BODY MASS INDEX DOCD SYST BP LT 130 MM HG DIAST BP < 80 MM HG CBC, INC PLATELETS AND DIFFERENTIAL COMPREHEN METABOLIC PANEL CMP LIPID PANEL VITAMIN D, 25-HYDROXY ROUTINE VENIPUNCTURE OFFICE DKZZC-VFY-PBVLKVUU BODY MASS INDEX DOCD SYST BP LT 130 MM HG DIAST BP < 80 MM HG REMOVAL IMPACTED CERUMEN REQUIRING INSTR UMENTATION Covid Vaccine Admin, Single Dose 2023 Pfizer Comirnaty tri-sucrose COVID Vacci ne 30 mcg/ OFFICE OKZPG-OPE-BYCASKUQ BODY MASS INDEX DOCD SYST BP >= 140 MM HG6 IT DIAST BP >= 90 MM HG EKG (ELECTROCARDIOGRAM) OFFICE MNPOK-KVW-BQMBISSU BODY MASS INDEX DOCD SYST BP >= 140 MM HG6 IT DIAST BP >= 90 MM HG BASIC METABOLIC PANEL(BMP) CBC, INC PLATELETS AND DIFFERENTIAL SARS-CoV-2/Flu/RSV (all targets) 2023 THYROID STIMULATION HORMONE(TSH) 2023 URINALYSIS W MICROSCOPIC (UA) ROUTINE VENIPUNCTURE OFFICE XCQKX-WVP-WZIHSGTZ BODY MASS INDEX DOCD SYST BP LT 130 MM HG DIAST BP 80-89 MM HG OFFICE QZQAF-BMG-TXMXNRIM PPPS, subseq visit BODY MASS INDEX DOCD SYST BP LT 130 MM HG DIAST BP 80-89 MM HG URINALYSIS, REFLEX (UA) NSALINE 1000CC INTRAVENOUS INFUSION, HYDRATION; INITIAL , 31 MINUT INTRAVENOUS INFUSION, HYDRATION; EACH AD DITIONAL H OFFICE XKRYE-EBX-LSHQTXUB SYST BP LT 130 MM HG DIAST BP < 80 MM HG FALL RISK ASSESSMENT DOC'D PRES/ABSN URINE INCON ASSESS Clin depression screen doc CBC, INC PLATELETS AND DIFFERENTIAL COMPREHEN METABOLIC PANEL CMP FERRITIN LEVEL ROUTINE VENIPUNCTURE NSALINE 1000CC INTRAVENOUS INFUSION, HYDRATION; INITIAL , 31 MINUT OFFICE FKLDQ-AJT-MWSKLFJX SYST BP LT 130 MM HG DIAST BP < 80 MM HG CBC, INC PLATELETS AND DIFFERENTIAL FERRITIN LEVEL ROUTINE VENIPUNCTURE OFFICE NTOKT-IFE-ZQRFCJRF SYST BP >= 140 MM HG6 IT DIAST BP 80-89 MM HG BASIC METABOLIC PANEL(BMP) CBC, INC PLATELETS AND DIFFERENTIAL ROUTINE VENIPUNCTURE Transitional Care- First 7 Days Of Disch arge SYST BP >= 140 MM HG6 IT DIAST BP < 80 MM HG DSCHRG MED/CURRENT MED MERGE BASIC METABOLIC PANEL(BMP) CBC, INC PLATELETS AND DIFFERENTIAL FERRITIN LEVEL VITAMIN D, 25-HYDROXY ROUTINE VENIPUNCTURE OFFICE QPZNJ-LCU-NWNQUIRI SYST BP LT 130 MM HG DIAST BP < 80 MM HG EKG (ELECTROCARDIOGRAM) PULSE OXIMETRY, MULTIPLE Admin influenza virus vac FLU VACC PRSV FREE INC ANTIG OFFICE PZFKQ-FXM-DMEYXOAX SYST BP LT 130 MM HG DIAST BP >= 90 MM HG Chest Xray, 2 Views OFFICE LMTHF-URE-KWGLOMWM SYST BP GE 130 - 139MM HG DIAST BP < 80 MM HG OFFICE VPGBC-CII-OSCTGBXI SYST BP >= 140 MM HG6 IT [...] MEDICARE Pneumococcal Conjugate Vaccine (PCV20) J OFFICE ZRLEN-SDW-AZKAXVVD SYST BP LT 130 MM HG DIAST BP < 80 MM HG INIT PREVENT PHYS EXAM; LIMITED TO NEW B ENEFICIARY BASIC METABOLIC PANEL(BMP) CBC, INC PLATELETS AND DIFFERENTIAL ROUTINE VENIPUNCTURE INTRAVENOUS INFUSION, HYDRATION; INITIAL , 31 MINUT NSALINE 1000CC OFFICE VZEHY-BFQ-AODEWGRD SYST BP LT 130 MM HG DIAST BP < 80 MM HG DXA BONE DENSITY, AXIAL SCREENING MAMMOGRAM (CAD) Screening Digital Breast Tomosynthesis M OFFICE VOSPL-CRT-LZVPVXUP BASIC METABOLIC PANEL(BMP) ROUTINE VENIPUNCTURE X-RAY EXAM OF LUMBAR SPINE, A/P & LAT De KENALOG 10 MG KENALOG 10 MG ASP/INJ MAJOR JOINTOR BURSA, SHOULDER, H IP,KNEE W/O US GUIDANCE OFFICE QJNCG-WGH-BUOYCCZJ IMMUN ADMIN (INC PERCUTANEOUS) SINGLE, F IRST INJ FLU VAC NO PRSV 4 IVA, 0.5mL DOSAGE OFFICE BDQEB-ZXN-LITKHGVE DUPLEX SCAN OF ABD, PELV, SCROT, COMPLET E ULTRASOUND RETROPERITONEAL ( AORTA, RENAL, NODES) REAL TIME W/ DOCUMENTATION, CO DUPLEX SCAN LOWER EXTREMITY EXTREMITY STUDY/BILATERAL (VENECIA) 022 OFFICE JQMUZ-BGI-TGWGGQWS BASIC METABOLIC PANEL(BMP) ROUTINE VENIPUNCTURE OFFICE GZLWA-YVZ-FZKWAXBN BASIC METABOLIC PANEL(BMP) ROUTINE VENIPUNCTURE BP OFFICE/OUTPATIENT VISIT EST OFFICE KOHYJ-HJA-VPXZUJKP CBC, INC PLATELETS AND DIFFERENTIAL COMPREHEN METABOLIC PANEL CMP ROUTINE VENIPUNCTURE INTRAVENOUS INFUSION, HYDRATION; INITIAL , 31 MINUT NSALINE 1000CC BASIC METABOLIC PANEL(BMP) ROUTINE VENIPUNCTURE OFFICE IBFLY-WQE-TKJQXBWA KENALOG 10 MG KENALOG 10 MG ASP/INJ MAJOR JOINTOR BURSA, SHOULDER, H IP,KNEE W/O US GUIDANCE X-RAY EXAM OF KNEES OFFICE LGYQD-JCH-LJSEDOPD BASIC METABOLIC PANEL(BMP) ROUTINE VENIPUNCTURE OFFICE ZMEIW-PNP-KBMTDKPP BASIC METABOLIC PANEL(BMP) ROUTINE VENIPUNCTURE IMMUN ADMIN (INC PERCUTANEOUS) SINGLE, F IRST INJ FLU VACC PRSV FREE INC ANTIG OFFICE YDUCN-ORP-TSMXRWKL BASIC METABOLIC PANEL(BMP) ROUTINE VENIPUNCTURE OFFICE IHLDC-TRK-JBBZQPQK OFFICE ESFJM-MDF-GGVATFYJ OFFICE MKGTL-RXS-VDGEVQOL BASIC METABOLIC PANEL(BMP) PARATHYROID HORMONE (PTH) URIC ACID, (S) VITAMIN D, 25-HYDROXY ROUTINE VENIPUNCTURE OFFICE UOATK-KAJ-FRKJVQQP IMMUN ADMIN (INC PERCUTANEOUS) SINGLE, F IRST [...] DISCUSSION BASIC METABOLIC PANEL(BMP) ROUTINE VENIPUNCTURE OFFICE QRBWB-IBN-BPFLDGCX CT ABD&PELV 1+ SECTION/REGNS LOW OSMOLAR CONTRAST (300 TO 399 MG IODI NE) TISSUE EXAM BY PATHOLOGIST SCREENING COLONOSCOPY (NOT HIGH RISK) Jorge A UPPER GI ENDOSCOPY BIOPSY CBC, INC PLATELETS AND DIFFERENTIAL COMPREHEN METABOLIC PANEL [facility] 9 URINALYSIS, REFLEX (UA) ROUTINE VENIPUNCTURE OFFICE ZEPYC-PAC-RKWGUAXX FERRITIN LEVEL COMPREHEN METABOLIC PANEL [facility] 9 ROUTINE VENIPUNCTURE OFFICE GWGRC-DGO-UYSKDZPQ X-RAY EXAM OF FOOT OFFICE YDISQ-EST-IDFOUGOK Advance Directives Directive Yes / No Effective [...] Diagnoses Date Provider Providers Copied on Encounter [email or web address], [address], [place], [place], [address] , tel: [phone] Care Management No Information 5 Felicia Leung. [address], [place], [place], [address], [place]. tel:[phone] [email or web address], [address], [place], [place], [address] , [place] tel: [phone] [facility] No Information 5 [employer] Cannon. [address], [place], [place], [address], [place]. tel:[phone] [email or web address], [address], [place], [place], [address] , tel: [phone] [facility] No Information 5 Cizek Xochitl. [address], [place], [place], [address], . tel:[phone] [facility], [address], [place], [place], [address] , tel: [phone] [facility] No Information 5 Cizek Xochitl. [address], [place], [place], [address], [place]. tel: [phone] [facility], [address], [place], [place], [address] , tel: [phone] [facility] Other emphysema 5 Cizek Xochitl. [address], [place], [place], [address], . tel:[phone] [facility], [address], [place], [place], [address] , tel: [phone] [facility] No Information 5 Cizek Xochitl. [address], [place], [place], [address], [place]. tel:[phone] [facility], [address], [place], [place], [address] , tel: [phone] [facility] No Information 5 Cizek Xochitl. [address], [place], [place], [address], [place]. tel:[phone] OFFICE MMACK-DIU-TZH RENETTA [facility], [address], [place], [place], [address] , tel: [phone] [facility] Chronic Conditions (chief complaint) Other emphysemaHypert ensive chronic kidney disease with stage 1 through stage 4 chronic kidney disease, or unspecified chronic kidney diseaseStage 3a chronic kidney diseaseIron deficiency anemia, unspecified iron deficiency anemia typeAcute pneumoniaRight lower lobe lung massAtheroscler osis of aortaThoracic aortic aneurysm, without rupture, unspecifiedBila teral primary osteoarthritis of knee Feb-0 4-202 5 Felicia Leung. [address], [place], [place], [address], [place]. tel:[phone] Referring Provider: Xochitl Perez, [address], [place], [address] . tel:[phone] OFFICE SOTFF-ZJO-SJG [facility], [address], [place], [place], [address] , tel:[phone] [facility] acute visit (chief complaint)C hronic Conditions (chief complaint) Acute pneumoniaEssent ial (primary) hypertensionOth er emphysema 5 Chadwick Turner. [address], [place], [place], [address], [place]. tel:[phone] Referring Provider: Xochitl Perez, [address], [place], [address] . tel:[phone] [facility], [address], [place], [place], [address] , [place] tel:[phone] [facility] No Information 4 Felicia Leung. [address], [place], [place], [address], [place]. tel:[phone] OFFICE OZSND-BXX-SCD [facility], [address], [place], [place], [address] , tel:[phone] [facility] Chronic Conditions (chief complaint) Stage 3a chronic kidney diseaseHyperten sive chronic kidney disease with stage 1 through stage 4 chronic kidney disease, or unspecified chronic kidney diseaseAtherosc lerosis of aortaOther emphysemaIron deficiency anemia, unspecified iron deficiency anemia typeActinic keratosisImpact ed cerumen of both earsVaginal drynessScreenin g mammogram for breast cancer 4 [employer]. [address], [place], [place], [address], [place]. tel:[phone] Referring Provider: Xochitl Perez, [address], [place], [address] . tel:[phone] [facility], [address], [place], [place], [address] , tel: [phone] [facility] No Information 4 Felicia Leung. [address], [place], [place], [address], . tel:[phone] [facility], [address], [place], [place], [address] , tel: [phone] [facility] No Information 4 Felicia Leung. [address], [place], [place], [address], [place]. tel:[phone] OFFICE EZRPI-GCG-EDR [facility], [address], [place], [place], [address] , tel: [phone] [facility] Chronic Conditions (chief complaint) Hypertensive chronic kidney disease with stage 1 through stage 4 chronic kidney disease, or unspecified chronic kidney diseaseStage 3a chronic kidney diseaseFollicul itisNasal sore 4 [employer] Cannon. [address], [place], [place], [address], [place]. tel:[phone] Referring Provider: Xochitl Perez, [address], [place], [address] . tel:[phone] OFFICE CTMTI-JVT-UIL [facility], [address], [place], [place], [address] , tel: [phone] [facility] Hypertensive chronic kidney disease with stage 1 through stage 4 chronic kidney disease, or unspecified chronic kidney diseaseStage 3a chronic kidney disease 4 [employer] Cannon. [address], [place], [place], [address], [place]. [phone] Referring Provider: Xochitl Perez, [address], [place], [address] . tel:[phone] OFFICE LMPZD-LLX-ASF [facility], [address], [place], [place], [address] , tel: [phone] [facility] Chronic Conditions (chief complaint) Hypertensive chronic kidney disease with stage 1 through stage 4 chronic kidney disease, or unspecified chronic kidney diseaseStage 3a chronic kidney diseaseAcute cystitis without hematuriaFatigu e, unspecified typeSymptoms of upper respiratory infection (URI)Intermitte nt constipation 4 [employer]ak Cannon. [address], [place], [place], [address], . tel:[phone] Referring Provider: Xochitl Perez, [address], [place], [address] . tel:[phone] OFFICE PWARU-TFX-BIH [facility], [address], [place], [place], [address] , tel:[phone] [facility] Medicare preventive (chief complaint)M edicare preventive (chief complaint)C hronic Conditions (chief complaint) Hypertensive chronic kidney disease with stage 1 through stage 4 chronic kidney disease, or unspecified chronic kidney diseaseStage 3a chronic kidney diseaseMedicare annual wellness visit, subsequentAther osclerosis of aortaThoracic aortic aneurysm, without rupture, unspecifiedOste openia of multiple sitesAcute cystitis without hematuria 4 Felicia Leung. [address], [place], [place], [address], [place]. tel:[phone] Referring Provider: Xochitl Perez, [address], [place], [address] . tel:[phone] OFFICE NBXLD-BGK-ZDS [facility], [address], [place], [place], [address] , tel:[phone] [facility] Chronic Conditions (chief complaint)c hronic conditions (chief complaint) Hypotension, unspecified hypotension typeHypertensiv e chronic kidney disease with stage 1 through stage 4 chronic kidney disease, or unspecified chronic kidney diseaseStage 3a chronic kidney diseaseUrinary frequencyAbnorm al urinalysis 4 Felicia Leung. [address], [place], [place], [address], . tel:[phone] Referring Provider: Xochitl Perez, [address], [place], [address] . tel:[phone] OFFICE UVBEB-ULG-DFY [facility], [address], [place], [place], [address] , tel: [phone] [facility] Chronic Conditions (chief complaint) Hypertensive chronic kidney disease with stage 1 through stage 4 chronic kidney disease, or unspecified chronic kidney diseaseStage 3a chronic kidney diseaseOther emphysemaIron deficiency anemia, unspecified iron deficiency anemia typeHypotension , unspecified hypotension type 4 Cizek Xochitl. [address], [place], [place], [address], . tel:[phone] Referring Provider: Xochitl Perez, [address], [place], [address] . tel:[phone] [facility], [address], [place], [place], [address] , tel: [phone] [facility] No Information 4 Cizek Xochitl. [address], [place], [place], [address], . tel:[phone] [facility], [address], [place], [place], [address] , tel: [phone] [facility] Urinary frequency 4 Bridgetzek Xochitl. [address], [place], [place], [address], . tel:[phone] OFFICE TNTYR-VKD-MOD [facility], [address], [place], [place], [address] , tel: [phone] [facility] Chronic Conditions (chief complaint) Hypertensive chronic kidney disease with stage 1 through stage 4 chronic kidney disease, or unspecified chronic kidney diseaseStage 3a chronic kidney diseaseOther emphysemaIron deficiency anemia, unspecified iron deficiency anemia type 4 Cizek Xochitl. [address], [place], [place], [address], . tel:[phone] Referring Provider: Xochitl Perez, [address], [place], [address] . tel:[phone] Transitional Care- First 7 Days Of Discharge [facility], [address], [place], [place], [address] , tel: [phone] [facility] Chronic Conditions (chief complaint) Hypertensive chronic kidney disease with stage 1 through stage 4 chronic kidney disease, or unspecified chronic kidney diseaseStage 3a chronic kidney diseaseAcute cystitis without hematuriaHypona tremiaHypokalem iaLeukocytosis, unspecified type 4 Felicia Leung. [address], [place], [place], [address], . tel:[phone] Referring Provider: Xochitl Perez, [address], [place], [address] . tel:[phone] [facility], [address], [place], [place], [address] , tel: [phone] [facility] No Information 4 Felicia Leung. [address], [place], [place], [address], . tel:[phone] Referring Provider: Xochitl Perez, [address], [place], [address] . tel:[phone] OFFICE ZIJOW-AES-MJC [facility], [address], [place], [place], [address] , tel: [phone] [facility] Chronic Conditions (chief complaint) Hypertensive chronic kidney disease with stage 1 through stage 4 chronic kidney disease, or unspecified chronic kidney diseaseStage 3a chronic kidney diseaseBilatera l primary osteoarthritis of kneeIron deficiency anemia, unspecified iron deficiency anemia typeOther emphysemaEssent ial (primary) hypertension 3 Felicia Leung. [address], [place], [place], [address], . tel:[phone] Referring Provider: Xochitl Perez, [address], [place], [address] . tel:[phone] OFFICE SQALD-NVN-UFP [facility], [address], [place], [place], [address] , tel: [phone] [facility] Chronic Conditions (chief complaint) Other emphysemaHypert ensive chronic kidney disease with stage 1 through stage 4 chronic kidney disease, or unspecified chronic kidney diseaseStage 3a chronic kidney diseaseBilatera l primary osteoarthritis of kneeHypoxia 3 Felicia Leung. [address], [place], [place], [address], . [phone] Referring Provider: Xochitl Perez, [address], [place], [address] . tel:[phone] OFFICE WEVHM-ACV-HUU [facility], [address], [place], [place], [address] , tel: [phone] [facility] Chronic Conditions (chief complaint) Other emphysemaHypoxi aPain in left knee 3 Felicia Leung. [address], [place], [place], [address], . [phone] Referring Provider: Xochitl Perez, [address], [place], [address] . tel:[phone] OFFICE BYBGE-KTD-OGS [facility], [address], [place], [place], [address] , tel:[phone] [facility] acute visit (chief complaint) Hypertensive chronic kidney disease with stage 1 through stage 4 chronic kidney disease, or unspecified chronic kidney diseaseStage 3a chronic kidney diseasePain in left kneePain in right kneeGastroesoph ageal reflux disease with esophagitis without hemorrhage 3 Nohemi Mckeon. [address], [place], [place], [address], [place]. tel:[phone] Referring Provider: Xochitl Perez, [address], [place], [address] . [phone] [facility], [address], [place], [place], [address] , tel:[phone] [facility] No Information 3 Km Stokes. [address] [facility], [address] [place] [address], [place], [place], [address], [place]. tel:[phone] Referring Provider: Xochitl Perez, [address], [place], [address] . tel:[phone] [employer], [address], [place], [place], [address] , [place] tel:[phone] [facility] Information 3 Maikel Stein. [address] [place], [address], . [phone] Referring Provider: Xochitl Perez, [address], [place], [address] . tel:[phone] [employer] [facility], [address], [place], [place], [address] , [place] tel: [phone] [facility] Iron deficiency anemia, unspecified iron deficiency anemia type 3 Felicia Leung. [address], [place], [place], [address], [place]. [phone] OFFICE HPCZJ-QYL-HJQ [facility] [email or web address], [address], [place], [place], [address] , [place] tel: [phone] [facility] Medicare preventive (chief complaint)C hronic Conditions (chief complaint) Hypertensive chronic kidney disease with stage 1 through stage 4 chronic kidney disease, or unspecified chronic kidney diseaseStage 3a chronic kidney diseaseOther emphysemaAthero sclerosis of aortaSenile purpuraMedicare annual wellness visit, subsequentOsteo penia of multiple sitesAnemia, unspecified typeRight wrist fracture, sequelaImpacted cerumen, bilateralMild cognitive impairment 3 Felicia Leung. [address], [place], [place], [address], [place]. tel:[phone] Referring Provider: Xochitl Perez, [address], [place], [address] . tel:[phone] OFFICE PNZCR-QCC-NWY [facility] [email or web address], [address], [place], [place], [address] , [place] [phone] [facility] acute visit (chief complaint) Diarrhea, unspecified typeHypertensiv e chronic kidney disease with stage 1 through stage 4 chronic kidney disease, or unspecified chronic kidney diseaseStage 3a chronic kidney disease 3 Nohemi Mckeon. [address], [place], [place], [address], . tel:[phone] Referring Provider: Xochitl Perez, [address], [place], [address] . tel:[phone] [employer] [facility], [address], [place], [place], [address] , [phone] [facility] No Information 3 Felicia Lindsay. [address] [place] [address], [address], . tel:[phone] Referring Provider: Xochitl Perez, [address], [place], [address] . tel:[phone] OFFICE OTFQG-SIL-IDL [facility] [employer] [facility], [address], [place], [place], [address] , [phone] [facility] Chronic Conditions (chief complaint) Hypertensive chronic kidney disease with stage 1 through stage 4 chronic kidney disease, or unspecified chronic kidney diseaseStage 3a chronic kidney diseasePeripher al vascular diseaseAtherosc lerosis of aortaOther emphysema 3 Felicia Leung. [address], [place], [place], [address], . tel:[phone] Referring Provider: Xochitl Perez, [address], [place], [address] . tel:[phone] OFFICE DMWTG-EKF-ARV [facility], [address], [place], [place], [address] , tel:[phone] [facility] Chronic Conditions (chief complaint) Hypertensive chronic kidney disease with stage 1 through stage 4 chronic kidney disease, or unspecified chronic kidney diseaseStage 3a chronic kidney diseasePain in right kneePain in left kneeOther chronic painLumbar radiculopathy 2 Felicia Leung. [address], [place], [place], [address], [place]. tel:[phone] Referring Provider: Xochitl Perez, [address], [place], [address] . tel:[phone] [facility], [address], [place], [place], [address] , tel:[phone] [facility] No Information 2 Felicia Leung. [address], [place], [place], [address], [place]. tel:[phone] Referring Provider: Xochitl Perez, [address], [place], [address] . tel:[phone] OFFICE YVGSA-MXJ-HAS ANDED [facility], [address], [place], [place], [address] , tel:[phone] [facility] Chronic Conditions (chief complaint) Hypertensive chronic kidney disease with stage 1 through stage 4 chronic kidney disease, or unspecified chronic kidney diseaseStage 3a chronic kidney diseaseLumbar radiculopathy 2 Felicia Leung. [address], [place], [place], [address], [place]. tel:[phone] Referring Provider: Xochitl Perez, [address], [place], [address] . tel:[phone] [facility], [address], [place], [place], [address] , [place] tel:[phone] [facility] No Information 2 Brenna Stokes. [address], [place], [place], [address], [place]. tel:[phone] Referring Provider: Garfield Basilio, [address] [facility] [address], [place], [address]. tel:[phone] [facility], [address], [place], [place], [address] , [place] tel:[phone] [facility] No Information 2 Jaleel Jones. [address], [place], [place], [address], [place]. tel:[phone] Referring Provider: Xochitl Perez, [address], [place], [address] . tel:[phone] OFFICE BUVZH-FQX-DZV [facility], [address], [place], [place], [address] , tel:[phone] [facility] Hypertensive chronic kidney disease with stage 1 through stage 4 chronic kidney disease, or unspecified chronic kidney diseaseStage 3a chronic kidney diseaseAtherosc lerosis of aortaPeripheral vascular disease 2 Felicia Leung. [address], [place], [place], [address], [place]. tel:[phone] Referring Provider: Xochitl Perez, [address], [place], [address] . tel:[phone] OFFICE CNLDJ-LDO-WRM [facility], [address], [place], [place], [address] , [place] tel:[phone] [facility] acute visit (chief complaint) Superficial phlebitisBenign essential hypertension Jul- 2 Nohemi Mckeon. [address], [place], [place], [address], [place]. tel:[phone] Referring Provider: Xochitl Perez, [address], [place], [address] . tel:[phone] OFFICE/OUTPAT IENT VISIT EST [facility], [address], [place] [place], [place], [address] , tel:[phone] [facility] IM DehydrationHype rtensive chronic kidney disease with stage 1 through stage 4 chronic kidney disease, or unspecified chronic kidney disease 2 Felicia Leung. [address], [place], [place], [address], . tel:[phone] Referring Provider: Xochitl Perez, [address], [place], [address] . tel:[phone] OFFICE TZXIR-XAJ-ZAG [facility], [address], [place], [place], [address] , tel: [phone] [facility] Chronic Conditions (chief complaint) Acute UTIDehydrationB enign hypertensive renal diseaseStage 3a chronic kidney disease Apr-0 8 2 Cizek Xochitl. [address], [place], [place], [address], [place]. tel:[phone] Referring Provider: Xochitl Perez, [address], [place], [address] . tel:[phone] OFFICE JVKWE-CPY-ANY [facility], [address], [place], [place], [address] , tel:[phone] [facility] Chronic Conditions (chief complaint) Benign hypertensive renal diseaseOther emphysemaStage 3a chronic kidney diseaseDDD (degenerative disc disease), cervicalBilater al primary osteoarthritis of knee Jun-0 2 2 Cizek Xochitl. [address], [place], [place], [address], [place]. [phone] Referring Provider: Xochitl Perez, [address], [place], [address] . tel:[phone] OFFICE BBMVA-CCQ-UIV [facility], [address], [place], [place], [address] , tel:[phone] [facility] Chronic Conditions (chief complaint) Benign hypertensive renal diseaseStage 3a chronic kidney diseaseOther emphysemaDDD (degenerative disc disease), cervical Dec-0 1 Cizek Xochitl. [address], [place], [place], [address], [place]. tel:[phone] Referring Provider: Xochitl Perez, [address], [place], [address] . tel:[phone] [facility]ICE [facility], [address], [place], [place], [address] , tel:[phone] [facility] Chronic Conditions (chief complaint) Benign hypertensive renal diseaseStage 3a chronic kidney diseaseThoracic aortic aneurysm without rupture Sep-0 - 1 Felicia Leung. [address], [place], [place], [address], . tel:[phone] Referring Provider: Xochitl Perez, [address], [place], [address] . tel:[phone] OFFICE [facility], [address], [place], [place], [address] , tel: [phone] [facility] Chronic Conditions (chief complaint) Benign hypertensive renal diseaseStage 3a chronic kidney diseaseOther emphysemaTear of right biceps muscle, subsequent encounter Sep-0 1 Felicia Leung. [address], [place], [place], [address], [place]. tel:[phone] Referring Provider: Xochitl Perez, [address], [place], [address] . tel:[phone] OFFICE OWYAP-FDQ-XRE [facility], [address], [place], [place], [address] , tel: [phone] [facility] Chronic Conditions (chief complaint) Benign hypertensive renal diseaseStage 3a chronic kidney diseaseThoracic aortic aneurysm without ruptureAtherosc lerosis of aortaSenile purpuraTear of right biceps muscle, subsequent encounter Apr-2 1 Felicia Leung. [address], [place], [place], [address], [place]. tel:[phone] Referring Provider: Xochitl Perez, [address], [place], [address] . tel:[phone] [facility], [address], [place], [place], [address] , tel: [phone] [facility] Strain of muscle, fascia and tendon of other parts of biceps, right arm, initial encounter Apr-2 3- 1 Felicia Leung. [address], [place], [place], [address], [place]. tel:[phone] OFFICE CBUTR-JMU-RSC [facility], [address], [place], [place], [address] , tel: [phone] [facility] acute visit (chief complaint) Tear of right biceps muscle, initial encounterBenign hypertensive renal diseaseStage 3a chronic kidney disease Jul- 1 Nohemi Mckeon. [address], [place], [place], [address], . tel:[phone] Referring Provider: Xochitl Perez, [address], [place], [address] . tel:[phone] OFFICE UPSKK-ZEG-HAX [facility], [address], [place], [place], [address] , tel: [phone] [facility] Chronic Conditions (chief complaint) Hypertensive chronic kidney disease with stage 1 through stage 4 chronic kidney disease, or unspecified chronic kidney diseaseChronic kidney disease, stage 3 unspecifiedOthe r emphysema Jan- 0 Felicia Leung. [address], [place], [place], [address], [place]. [phone] Referring Provider: Xochitl Perez, [address], [place], [address] . tel:[phone] OFFICE OYLYY-YAY-QXL [facility], [address], [place], [place], [address] , tel: [phone] [facility] Chronic Conditions (chief complaint) Other emphysemaThorac ic aortic aneurysm without ruptureHyperten sive chronic kidney disease with stage 1 through stage 4 chronic kidney disease, or unspecified chronic kidney diseaseChronic kidney disease, stage 3 (moderate)Vitam in D deficiencyFoot pain, right Sep-0 0 Felicia Leung. [address], [place], [place], [address], [place]. [phone] Referring Provider: Xochitl Perez, [address], [place], [address] . tel:[phone] [facility], [address], [place], [place], [address] , [place] tel:[phone] [facility] No Information 0 Brenna Stokes. [address], [place], [place], [address], [place]. tel:[phone] Referring Provider: Xochitl Perez, [address], [place], [address] . tel:[phone] [facility], [address], [place], [place], [address] , tel:[phone] [facility] Breast nodule 0 Felicia Leung. [address], [place], [place], [address], [place]. [phone] [facility], [address], [place], [place], [address] , tel:[phone] [facility] No Information 0 Hank Ricci. [address], [place], [place], [address], [place]. tel:[phone] Referring Provider: Xochitl Perez, [address], [place], [address] . tel:[phone] TELEPHONE E&M SERVICE BY A PHYSICIAN;5-1 0 MINUTES OF MEDICAL DISCUSSION [facility], [address], [place], [place], [address] , tel:[phone] [facility] Chronic Conditions (chief complaint) Other emphysemaAllerg ic dermatitis Jul-2 0 Felicia Leung. [address], [place], [place], [address], [place]. [phone] Referring Provider: Xochitl Perez, [address], [place], [address] . tel:[phone] OFFICE PFAIP-YND-DJH RENETTA [facility], [address], [place], [place], [address] , tel:[phone] [facility] Chronic Conditions (chief complaint) Essential hypertensionOth er emphysemaThorac ic aortic aneurysm without ruptureSenile purpuraAtherosc lerosis of aorta Mar- 0-202 0 Felicia Leung. [address], [place], [place], [address], [place]. tel:[phone] Referring Provider: Xochitl Perez, [address], [place], [address] . tel:[phone] [facility], [address] [facility], [place], [place], [address] , [place] tel:[phone] [facility] No Information 0 Felicia Lindsay. [address], [place], [address], . tel:[phone] Referring Provider: Kike [place], [address] [place] [address], [address] . tel:[phone] [facility], [address], [address] , tel:[phone] [facility] Periumbilical abdominal pain 0 Km Stokes. [address] [place] [address], [address], [place]. tel:[phone] [facility], [address] [address], [place], [place], [address] , [place] tel:[phone] [facility] No Information 0 Km Stokes. [address] [place] [address], [address], [place]. tel:[phone] Referring Provider: Xochitl Perez, [address], [place], [address] . tel:[phone] [facility], [address] [place] [address], [address] , [place] tel:[phone] [facility] No Information 0 Km Stokes. [address] [place] [address], [address], [place]. tel:[phone] Referring Provider: Xochitl Perez, [address], [place], [address] . tel:[phone] OFFICE MDIRH-QCW-OYV RENETTA [facility], [address], [place], [place], [address] , tel: [phone] [facility] Chronic Conditions (chief complaint) Essential hypertensionOth er emphysemaRight lower quadrant abdominal painAnemia, unspecified type 9 Felicia Leung. [address], [place], [place], [address], . tel:[phone] Referring Provider: Xochitl Perez, [address], [place], [address] . tel:[phone] OFFICE WRYPT-VME-GYP [facility], [address], [place], [place], [address] , tel: [phone] [facility] Chronic Conditions (chief complaint) Essential hypertensionOth er emphysemaAnkle edema, bilateralOnycho mycosis 9 Felicia Leung. [address], [place], [place], [address], . tel:[phone] Referring Provider: Xochitl Perez, [address], [place], [address] . tel:[phone] OFFICE KHRLK-DQH-JTI [facility], [address], [place], [place], [address] , tel: [phone] [facility] acute visit (chief complaint) Left foot painTobacco user 9 Kodak Cannon. [address], [place], [place], [address], [place]. tel:[phone] Referring Provider: Xochitl Perez, [address], [place], [address] . tel:[phone] [facility], [address], [place], [place], [address] , tel: [phone] [facility] No Information 9 Felicia Leung. [address], [place], [place], [address], . tel:[phone] Referring Provider: Xochitl Perez, [address], [place], [address] . tel:[phone] [facility], [address], [place], [place], [address] , tel: [phone] [facility] Chronic Conditions (chief complaint) Essential hypertensionOth er emphysemaSenile purpuraLung nodulesThoracic aortic aneurysm without ruptureTobacco use 9 Felicia Leung. [address], [place], [place], [address], [place]. tel:[phone] Referring Provider: Xochitl Perez, [address], [place], [address] . tel:[phone] [facility], [address], [place], [place], [address] , tel: [phone] [facility] Chronic Conditions (chief complaint) Essential hypertensionOth er emphysemaTobacc o consumptionPneu monia of both lower lobes due to infectious organism Fe 9 Felicia Leung. [address], [place], [place], [address], [place]. tel:[phone] Referring Provider: Xochitl Perez, [address], [place], [address] . tel:[phone] [facility], [address], [place], [place], [address] , tel: [phone] [facility] Chronic Conditions (chief complaint) Pneumonia of both lower lobes due to infectious organismOther emphysemaTobacc o consumptionEsse ntial hypertensionSen ile purpura 9 Felicia Leung. [address], [place], [place], [address], [place]. tel:[phone] Referring Provider: Xochitl Perez, [address], [place], [address] . tel:[phone] [facility], [address], [place], [place], [address] , [place] tel: [phone] [facility] Abnormal chest CT 8 Hank Ricci. [address], [place], [place], [address], [place]. tel:[phone] Referring Provider: Xochitl Perez, [address], [place], [address] . tel:[phone] [facility], [address], [place], [place], [address] , tel: [phone] [facility] Annual physical examEssential hypertensionOst eopeniaAnxiety disorder, unspecifiedVita min D deficiencyTobac co consumptionGene ralized abdominal painBilateral impacted cerumen 8 Cidawit Leung. [address], [place], [place], [address], [place]. [phone] Referring Provider: Xochitl Perez, [address], [place], [address] . tel:[phone] [employer] [facility], [address], [place], [place], [address] , [place] tel: [phone] [facility] Encounter for screening for osteoporosis 8 Felicia Leung. [address], [place], [place], [address], [place]. [phone] [employer] [facility], [address], [place], [place], [address] , [place] tel: [phone] [facility] Essential hypertensionSen ile purpuraAnxiety disorder, unspecified 8 Cizemarilyn Xochitl. [address], [place], [place], [address], [place]. tel:[phone] Referring Provider: Xochitl Perez, [address], [place], [address] . tel:[phone] [employer] [facility], [address], [place], [place], [address] , [place] tel: [phone] [facility] IM OsteopeniaEssen tial hypertensionSen ile purpuraEncounte r for gynecological examination (general) (routine) without abnormal findingsPolyost eoarthritis, unspecifiedAnxi ety disorder, unspecifiedFall , initial encounter 7 Cizek Xochitl. [address], [place], [place], [address], [place]. tel:[phone] Referring Provider: Xochitl Perez, [address], [place], [address] . tel:[phone] [facility], [address], [place], [place], [address] , tel: [phone] [facility] Essential hypertensionAcu te pain of right shoulder 0 2-201 7 Cizek Xochitl. [address], [place], [place], [address], [place]. tel:[phone] Referring Provider: Xochitl Perez, [address], [place], [address] . tel:[phone] [facility], [address], [place], [place], [address] , tel: [phone] [facility] Essential hypertensionSen ile purpura 4-201 6 Cizek Xochitl. [address], [place], [place], [address], [place]. tel:[phone] Referring Provider: Xochitl Perez, [address], [place], [address] . tel:[phone] [facility], [address], [place], [place], [address] , [place] tel: [phone] [facility] No Information 3-201 6 Cizek Xochitl. [address], [place], [place], [address], [place]. tel:[phone] [facility], [address], [place], [place], [address] , tel: [phone] [facility] Essential hypertension 0 5-201 6 Cizek Xochitl. [address], [place], [place], [address], [place]. tel:[phone] Referring Provider: Xochitl Perez, [address], [place], [address] . tel:[phone] [facility], [address], [place], [place], [address] , [place] tel: [phone] [facility] Elevated blood pressure (not hypertension) 6-201 6 Cizek Xochitl. [address], [place], [place], [address], [place]. tel: [phone] [facility], [address], [place], [place], [address] , [place] tel: [phone] [facility] Essential hypertension 9 6 Cizek Xochitl. [address], [place], [place], [address], [place]. tel: [phone] Referring Provider: Xochitl Perez, [address], [place], [address] . tel:[phone] [facility], [address], [place], [place], [address] , tel: [phone] [facility] Essential hypertensionAcu te viral conjunctivitis of both eyes 4 6 Cizek Xochitl. [address], [place], [place], [address], [place]. tel: [phone] Referring Provider: Xochitl Perez, [address], [place], [address] . tel:[phone] [facility], [address], [place], [place], [address] , [place] tel: [phone] [facility] Osteopenia 0 6 Cizek Xochitl. [address], [place], [place], [address], [place]. tel: [phone] [facility], [address], [place], [place], [address] , [place] tel: [phone] [facility] Right-sided low back pain without sciaticaOsteope niaEssential hypertension 0-201 6 Detmer Bety. [address], [place], [place], [address], [place]. tel:[phone] Referring Provider: Xochitl Perez, [address], [place], [address] . tel:[phone] [email or web address], [address], [place], [place], [address] , [place] tel: [phone] [facility] Routine gynecological examOsteoarthro sis, Unspecified, Unspecified SiteOsteopeniaE levated blood pressure (not hypertension)Ce rumen impactionAbdomi nal painAnxiety state, unspecified 5 Felicia Leung. [address], [place], [place], [address], [place]. tel:[phone] Referring Provider: Xochitl Perez, [address], [place], [address] . tel:[phone] [email or web address], [address], [place], [place], [address] , [place] tel: [phone] [facility] Elevated blood pressure (not hypertension)Os teoarthrosis, generalized, involving unspecifiedToba commercial lines account assistant useAnxiety state, unspecifiedOste openiaCerumen impactionRoutin e gynecological exam 3 Felicia Leung. [address], [place], [place], [address], [place]. tel:[phone] Referring Provider: Xochitl Perez, [address], [place], [address] . tel:[phone] [employer], [address], [place], [place], [address] , [place] tel: [phone] [facility] Urinary tract infection, site not specifiedAcute upper respiratory infections of unspecified siteTobacco use disorder 3 Detmer Bety. [address], [place], [place], [address], [place]. tel:[phone] Referring Provider: Xochitl Perez, [address], [place], [address] . tel:[phone] [email or web address], [address], [place], [place], [address] , [place] tel: [phone] [facility] Osteoarthrosis, generalized, involving unspecified siteAnxiety state, unspecifiedToba commercial lines account assistant use disorderUrinary tract infection, site not specifiedElevat ed blood pressure reading without diagnosis of hypertension 2 Felicia Leung. [address], [place], [place], [address], [place]. tel:[phone] Referring Provider: Xochitl Perez, [address], [place], [address] . tel:[phone] [employer] [facility], [address], [place], [place], [address] , [place] tel: [phone] [facility] Urinary tract infection 2 Detmer Bety. [address], [place], [place], [address], [place]. tel:[phone] [email or web address], [address], [place], [place], [address] , tel: [phone] [facility] Frequency of urinationElevat ed blood pressure (not hypertension)To bacco use 2 Detmer Bety. [address], [place], [place], [address], [place]. tel:[phone] Referring Provider: Xochitl Perez, [address], [place], [address] . tel:[phone] [employer] [facility], [address], [place], [place], [address] , [place] tel: [phone] [facility] Shoulder pain, left 2 Detmer Bety. [address], [place], [place], [address], [place]. tel:[phone] Referring Provider: Xochitl Perez, [address], [place], [address] . tel:[phone] [employer] [facility], [address], [place], [place], [address] , tel: [phone] [facility] Superficial injury of cornea 1 Siri Anthony. [address], [place], [place], [address]. tel:[phone] Referring Provider: Xochitl Perez, [address], [place], [address] . tel:[phone] [facility], [address], [place], [place], [address] , tel: [phone] [facility] Routine gynecological examinationAnxi ety state, unspecifiedOste oarthrosis, Unspecified, Unspecified SiteImpacted cerumen 8-201 1 Cizek Xochitl. [address], [place], [place], [address], [place]. tel:[phone] Referring Provider: Xochitl Perez, [address], [place], [address] . tel:[phone] [facility], [address], [place], [place], [address] , tel: [phone] [facility] PAIN IN LIMBREDNESS/DIS CHARGE OF EYE 1201 1 Cizek Xochitl. [address], [place], [place], [address], [place]. tel: [phone] [facility], [address], [place], [place], [address] , tel: [phone] [facility] TOBACCO USE DISORDER 7-201 0 Cizek Xochitl. [address], [place], [place], [address], [place]. tel: [phone] [facility], [address], [place], [place], [address] , [place] tel: [phone] [facility] ANXIETY STATE NOSROUTINE MEDICAL EXAMSCREEN MAL NEOP-RECTUM 5-200 9 Cizek Xochitl. [address], [place], [place], [address], [place]. tel: [phone] [facility], [address], [place], [place], [address] , tel: [phone] [facility] PURE HYPERCHOLESTERO YELENA 8-200 6 Cizek Xochitl. [address], [place], [place], [address], [place]. tel: [phone] [facility], [address], [place], [place], [address] , tel: [phone] [facility] GENERAL OSTEOARTHROSISL LOIS-TERM USE MEDS NEC Sep-0 1-200 5 Cizek Xochitl. [address], [place], [place], [address], . tel: [phone] [facility], [address], [place], [place], [address] , tel: [phone] [facility] [place] OTHER SPECF VACNATION Dec-0 3-200 2 Cizek Xochitl. [address], [place], [place], [address], . tel: [phone] [facility], [address], [place], [place], [address] , tel: [phone] [facility] HORMONE REPLACE POSTMENO Sep-2 6-200 0 Cizek Xochitl. [address], [place], [place], [address], [place]. tel: [phone] [facility], [address], [place], [place], [address] , tel: [phone] [facility] SCREEN-BLOOD DIS NOS August-0 9-200 0 Cizek Xochitl. [address], [place], [place], [address], . tel: [phone] [facility], [address], [place], [place], [address] , tel: [phone] [facility] SCREEN FOR HYPERTENSION Apr-0 6-200 0 Cizek Xochitl. [address], [place], [place], [address], . tel:[phone] Family History Family Member Type Diagnosis Age At Onset No Information Immunizations Vaccine Date Status Comments [facility] vaccine, promise-sucrose, 30mcg/0.3mL dose, 12 years [...] er Payers Payer name Insurance type Covered green party ID Authoriza tion(s) [place] [facility] [place] [id number] MEDICARE MB [id number] [employer]NA MDCR PPO PLANS MB [id number] MEDICARE MB [id number] [facility] OPEN ACCESS I II III CI [id number] S01 MEDICARE MB [id number] [facility] OPEN ACCESS I II III CI [id number] S01 [employer] OPEN ACCESS I II III CI [id number] S01 [facility] OPEN ACCESS I II III CI [id number] S01 [employer] HMO CI [id number] [employer] HMO CI [id number] [employer] HMO CI [id number] [employer] HMO CI [id number] Social History Type Description Quantity Date Captured [...] ordered Referral Referred To: Ashwin Hinson [address] [facility]
[address] [place], [phone] Ordered: Referrals: Pulmonology. Ashwin Hinson. Evaluation/diagnostic/treatment - Level 3 ordered Referral Referred To: [address], [id number] Ordered: CT scan of chest with contrast ordered Referral Referred To: [address], [place], [id number] Ordered: Screening mammography of both breasts Appointment date/timeframe: 08/08/2024 ordered Referral Referred To: [address] [place], [place], [phone] Ordered: Colonoscopy, flexible; with biopsy, single or multiple Appointment date/timeframe: 11/05/2022 ordered Referral Referred To: [address] [place], [place], [phone] Ordered: Upper gastrointestinal endoscopy Appointment date/timeframe: 11/05/2022 ordered Referral Referred To: Robert Janneth THOMAS Scott[address] [place], [phone] Ordered: Referrals: Orthopedic Surgery. Robert Lagunas DO. Evaluation/diagnostic/treatment - Level 3 ordered Referral Referred To: [address] [place] [address], [id number] Ordered: VENECIA (ankle brachial index) ordered Referral Referred To: [address] [place] [address], [id number] Ordered: Complete Doppler ultrasound of arteries of both lower extremities ordered Referral Ordered: X-RAY EXAM OF KNEES Bilateral ordered Referral Ordered: Complete Doppler ultrasound of renal artery ordered Referral Ordered: Complete duplex scan of renal vessels ordered Referral Ordered: CT of right upper extremity without contrast Right Appointment date/timeframe: 10/09/2020 ordered Referral Referred To: [address] [place] [address], [id number] Ordered: MRI upper extremity oth than jt w/o contr matrl ordered Referral Ordered: X-RAY EXAM OF FOOT Right ordered Referral Referred To: [address] [place] [address], [id number] Ordered: Spot compression mammography of left breast Left breast ordered Referral Referred To: [address] [place] [address], [id number] Ordered: US breast left limited Left breast ordered Referral Referred To: [address] [place] [address], [id number] Ordered: SCREENING MAMMOGRAM (CAD) Bilateral breast Appointment date/timeframe: 07/19/2019 ordered Referral Referred To: [address] [place] [address], [id number] Ordered: CT angiography chest w/contrast/noncontrast Appointment date/timeframe: 07/19/2019 ordered Referral Ordered: CT abdomen and pelvis w contrast ordered Referral Referred To: [address] [facility]
[address], [id number] Ordered: COLONOSCOPY, Flexible, Proximal To Splenic, Diagnostic, Wor W/O Collection Of Sp Appointment date/timeframe: 06/01/2019 ordered Referral Referred To: [address] [facility]
[address], [id number] Ordered: EGD, FLEXIBLE, TRANSORAL, DIAGNOSTIC W/ COLLECTION OF SPECIMEN Appointment date/timeframe: 06/01/2019 ordered Referral Ordered: X-RAY EXAM OF FOOT Left ordered Referral Ordered: Chest Xray, 2 Views ordered Appointment Fara Valencia BOOKED Future Order: Radiology Order Co mplete Doppler ultrasound of renal artery ([id number]), Sent on: Sent Future Order: Radiology Order Co mplete duplex scan of renal vessels ([id number]), Sent on: Sent Future Order: Radiology Order MR I upper extremity oth than jt w/o contr matrl ([id number]), Sent on: Sent History Of Present Illness Encounter Date Complaint History Of Prese nt Illness Chronic Conditions *See Chronic Conditions HPI acute visit Patient presents for an ER follow up. She went to [facility] on 04/17/2024 for shortness of breath, [...] an ER follow up. She went to [facility] on 04/17/2024 for shortness of breath, [...] and above. Chronic Conditions *See Chronic Conditions [facility] Chronic Conditions *See Chronic Conditions [facility] Chronic Conditions *See Chronic Conditions [facility] Chronic Conditions *See Chronic Conditions [facility] Medicare preventive A Health Ris k Assessment [...] changes made. chronic conditions *See Chronic Conditions [facility] Chronic Conditions *See Chronic Conditions [facility] Chronic Conditions *See Chronic Conditions [facility] Chronic Conditions *See Chronic Conditions [facility] Chronic Conditions *See Chronic Conditions [facility] Chronic Conditions *See Chronic Conditions [facility] Chronic Conditions *See Chronic Conditions [facility] Chronic Conditions *See Chronic Conditions [facility] acute visit Chief complaint: knee pain. Saw [...] frothy urine. Chronic Conditions *See Chronic Conditions [facility] Chronic Conditions *See Chronic Conditions [facility] Chronic Conditions *See Chronic Conditions [facility] Chronic Conditions *See Chronic Conditions [facility] acute visit Chief complaint: ankle pain. Painful lump and redness around her right ankle. This began 3 days ago. Tender to touch. Very warm to touch. No injury. Taking Tylenol and applying ice. Increased swelling after standing all day at work.Has hypertension. Taking meds. No chest pain or headache. Chronic Conditions *See Chronic Conditions [facility] Chronic Conditions *See Chronic Conditions [facility] Chronic Conditions *See Chronic Conditions [facility] Chronic Conditions *See Chronic Conditions [facility] Chronic Conditions *See Chronic Conditions [facility] Chronic Conditions *See Chronic Conditions [facility] acute visit Chief complaint: right upper arm [...] frothy urine. Chronic Conditions *See Chronic Conditions [facility] Chronic Conditions *See Chronic Conditions [facility] Chronic Conditions *See Chronic Conditions [facility] Chronic Conditions *See Chronic Conditions [facility] Chronic Conditions *See Chronic Conditions [facility] Chronic Conditions *See Chronic Conditions [facility] acute visit Chief complaint: left foot pain. [...] iron deficiency anemia type [facility].Use this to help with shortness of [...] if not improving. Related to Folliculitis Recommend Beverly nasal gel to help with this. Related [...] chronic kidney disease Doing well. Normal m brashear testing. Schedule mammogram. Follow up in 3 [...] if you stay at home, use hand biostatistician and wash your hands frequently. Especially when [...] if you stay at home, use hand biostatistician and wash your hands frequently. Especially when [...] if you stay at home, use hand biostatistician and wash your hands frequently. Especially when [...]
[2024-07-06 13:51] LABS: Glucose Point of Care 85 mg/dl (65-105)
== END 2024-07-06 13:23 | disposition home or self-care (01) ==
PROVIDERS: Visit Provider Internal Medicine Critical Care Medicine
DX: R91.8 Other nonspecific abnormal finding of lung field (principal)
CPT/HCPCS: 78815; A9552

== ENCOUNTER 2024-07-07 08:34 | Outpatient (CLI) | payer MEDICARE, SELFPAY ==
--- OUTSIDE RECORDS SUMMARY | 2024-07-07 08:37 | XMS_ITS | Referral Summary ---
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 Gender Identity Not on file Sexual Orientation Not on file Last Filed Vital Signs Vital Sign Reading Time Taken Comments Blood Pressure 134/96 04/24/2021 9:01 AM SLIVER MACHINE OPERATOR Pulse 54 04/24/2021 8:53 AM SLIVER MACHINE OPERATOR Temperature 36.3 C (97.4 F) 04/24/2021 8:53 AM SLIVER MACHINE OPERATOR Respiratory Rate 16 04/24/2021 8:53 AM SLIVER MACHINE OPERATOR Oxygen Saturation 99% 04/24/2021 8:53 AM SLIVER MACHINE OPERATOR Inhaled Oxygen Concentration - - Weight 68 kg (150 lb) 03/10/2024 10:36 AM SLIVER MACHINE OPERATOR Height 167.6 cm (5' 6 ) 03/10/2024 10:36 AM SLIVER MACHINE OPERATOR Body Mass Index 24.21 03/10/2024 10:36 AM SLIVER MACHINE OPERATOR Plan of Treatment Not on file Insurance [employer] MEDICARE [employer] MEDICARE Care Teams Graves Registration Specialist Relationship Specialty Start Date End Date No, Physician PCP - General 04/24/21
--- OUTSIDE RECORDS SUMMARY | 2024-07-07 08:37 | XMS_ITS | Clinical Summary ---
Author Organization [facility] Address [address] [place] [address] Care Team Providers Care Power Generation Engineer Name Role Phone Xochitl Duarte MD Primary Care Provider [phone] Allergies Active Allergy Reactions Criticality Noted Date [...] series) 2032 Insurance AETNA [facility] Care Teams Power Generation Engineer Relationship Specialty Start Date End Date Xochitl Duarte MD [facility] [place] [address] PCP - General Internal Medicine 08/14/20
--- OUTSIDE RECORDS SUMMARY | 2024-07-07 08:37 | XMS_ITS | Continuity of Care Document ---
Author Organization [facility] Address [address] [facility] [address] [place] [address] Phone Care Team Providers Care Automotive Porter Name Role Phone Wodorow Mendoza MD Unavailable Unavailable Allergies, Adverse Reactions, [...] Active azithromycin 250 mg tablet - Active doxazosin 4 mg tablet TAKE 2 TABLETS BY MOUTH EVERY DAY - Active alprazolam 0.5 mg tablet TAKE 1 TABLET B Y MOUTH TWICE DAILY NEEDED - Active hydrocodone 5 mg-acetaminophen 325 mg [...] Providers Copied on Encounter [facility], [address] [facility] [address] [address], [place], [address], [place] tel:[phone] [facility] No Information [address]. [address], [place], [place], [id number]. tel:[phone] [facility], [address], [place], [address], [place] tel:[phone] [facility] S/P left knee arthroscopyPri dana osteoarthritis of right knee [address] Kelly [address]. [address], [place], [place], [id number]. tel:[phone] Referring Provider: Xochitl Duarte, [address], [place], [address] . tel:[phone] [facility], [address], [place], [address], [place] tel:[phone] [facility] No Information 3 Kelly [address]. [address], [place], [place], [id number]. tel:[phone] [facility], [address], [place], [address], [place] tel:[phone] [facility] Tear of medial meniscus of left knee, current, unspecified tear type, subsequent encounterPrima ry osteoarthritis of left knee Jan- 3 Kelly Troy. [address], [place], [place], [id number]. tel:[phone] OFFICE/OUTPA TIENT VISIT EST [facility], [address], [place], [address], [place] tel:[phone] [facility] Tear of medial meniscus of left knee, current, unspecified tear type, subsequent encounterPrima ry osteoarthritis of right knee Jan- 3 Kelly [address]. [address], [place], [place], [id number]. tel:[phone] Referring Provider: [address], [place], [address] . tel:[phone] [facility], [address], [place], [address], [place] tel:[phone] [facility] Primary osteoarthritis of left kneePatellofem oral arthritis of right knee Sep-1 3 Colin Franny. [address], [place], [place], [address]. tel:[phone] Referring Provider: [address], [place], [address] . tel:[phone] [facility], [address], [place], [address], [place] tel:[phone] [facility] Primary osteoarthritis of left kneePatellofem oral arthritis of right knee Sep-0 6- 3 Colin Franny. [address], [place], [place], [id number]. tel:[phone] Referring Provider: [address], [place], [address] . tel:[phone] [facility], [address] [address], [place], [address], [place] tel:[phone] [facility] Right knee pain, unspecified chronicityPate llofemoral arthritis of right kneeTear of medial meniscus of left knee, initial encounterPrima ry osteoarthritis of left knee 3 Cristi Franny. [address], [place], [place], [id number]. tel:[phone] Referring Provider: Xochitl Duarte, [address], [place], [address] . tel:[phone] [facility], [address] [facility] [address], [place], [address], [place] tel:[phone] [facility] Unspecified internal derangement of left knee 3 No Information Referring Provider: Woodrow Mendoza, [address], [place], [address] . tel:[phone] OFFICE/OUTPA TIENT VISIT NEW [facility], [address] [facility] [address], [place], [address], [place] tel:[phone] [facility] Internal derangement of left kneeLeft knee pain, unspecified chronicity 3 Kelly [address]. [address], [place], [place], [id number]. tel:[phone] Referring Provider: Xochitl Duarte, [address], [place], [address] . tel:[phone] Family History Family Member Type Diagnosis Age At Onset Mother Problem Alive and well Father Problem (finding) Payers Payer name Insurance type Covered republican ID Authoriza tion(s) Medicare E2 OT [id number] [id number] or after OT [id number] Social History Type Description Quantity Date Captured [...]
--- OUTSIDE RECORDS SUMMARY | 2024-07-07 08:37 | XMS_ITS | Clinical Summary ---
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 Gender Identity Not on file Sexual Orientation Not on file Obstetrics History Last Filed Vital Signs Vital Sign Reading Time Taken Comments Blood Pressure 134/96 04/24/2021 9:01 AM PAMPHLET DISTRIBUTOR Pulse 54 04/24/2021 8:53 AM PAMPHLET DISTRIBUTOR Temperature 36.3 C (97.4 F) 04/24/2021 8:53 AM PAMPHLET DISTRIBUTOR Respiratory Rate 16 04/24/2021 8:53 AM PAMPHLET DISTRIBUTOR Oxygen Saturation 99% 04/24/2021 8:53 AM PAMPHLET DISTRIBUTOR Inhaled Oxygen Concentration - - Weight 68 kg (150 lb) 03/10/2024 10:36 AM PAMPHLET DISTRIBUTOR Height 167.6 cm (5' 6 ) 03/10/2024 10:36 AM PAMPHLET DISTRIBUTOR Body Mass Index 24.21 03/10/2024 10:36 AM PAMPHLET DISTRIBUTOR Plan of Treatment Health Maintenance Due Date [...] Insurance AETNA MEDICARE A[employer] MEDICARE Care Teams Basketball Coach Relationship Specialty Start Date End Date No, Physician PCP - General 04/24/21
--- OUTSIDE RECORDS SUMMARY | 2024-07-07 08:38 | XMS_ITS | Continuity of Care Document ---
Author Organization [facility] Address [address] [place] [address] Phone Care Team Providers Care Dimensional Engineer Name Role Phone Xochitl Duarte MD Unavailable [...] INC PLATELETS AND DIFFERENTIAL ROUTINE VENIPUNCTURE OFFICE OSUCX-OHB-DNHBYBAU BODY MASS INDEX DOCD SYST BP LT 130 MM HG DIAST BP < 80 MM HG Chest Xray, 2 Views OFFICE QHPEY-AKL-HZPSYWYT BODY MASS INDEX DOCD SYST BP LT 130 MM HG DIAST BP < 80 MM HG CBC, INC PLATELETS AND DIFFERENTIAL COMPREHEN METABOLIC PANEL CMP LIPID PANEL VITAMIN D, 25-HYDROXY ROUTINE VENIPUNCTURE OFFICE KBGOH-HUA-BONMPVNT BODY MASS INDEX DOCD SYST BP LT 130 MM HG DIAST BP < 80 MM HG REMOVAL IMPACTED CERUMEN REQUIRING INSTR UMENTATION Covid Vaccine Admin, Single Dose 2023 Pfizer Comirnaty tri-sucrose COVID Vacci ne 30 mcg/ OFFICE XHIIN-QNQ-VPNUTELS BODY MASS INDEX DOCD SYST BP >= 140 MM HG6 IT DIAST BP >= 90 MM HG EKG (ELECTROCARDIOGRAM) OFFICE PLEZY-USW-RIJHPNWH BODY MASS INDEX DOCD SYST BP >= 140 MM HG6 IT DIAST BP >= 90 MM HG BASIC METABOLIC PANEL(BMP) CBC, INC PLATELETS AND DIFFERENTIAL SARS-CoV-2/Flu/RSV (all targets) 2023 THYROID STIMULATION HORMONE(TSH) 2023 URINALYSIS W MICROSCOPIC (UA) ROUTINE VENIPUNCTURE OFFICE HJJAH-HDV-ATIAZVBP BODY MASS INDEX DOCD SYST BP LT 130 MM HG DIAST BP 80-89 MM HG OFFICE BWRAT-IEJ-DNTSUYCE PPPS, subseq visit BODY MASS INDEX DOCD SYST BP LT 130 MM HG DIAST BP 80-89 MM HG URINALYSIS, REFLEX (UA) NSALINE 1000CC INTRAVENOUS INFUSION, HYDRATION; INITIAL , 31 MINUT INTRAVENOUS INFUSION, HYDRATION; EACH AD DITIONAL H OFFICE MLTBO-TWH-MILPCYFX SYST BP LT 130 MM HG DIAST BP < 80 MM HG FALL RISK ASSESSMENT DOC'D PRES/ABSN URINE INCON ASSESS Clin depression screen doc CBC, INC PLATELETS AND DIFFERENTIAL COMPREHEN METABOLIC PANEL CMP FERRITIN LEVEL ROUTINE VENIPUNCTURE NSALINE 1000CC INTRAVENOUS INFUSION, HYDRATION; INITIAL , 31 MINUT OFFICE GJOCG-DZS-XAOOYOUP SYST BP LT 130 MM HG DIAST BP < 80 MM HG CBC, INC PLATELETS AND DIFFERENTIAL FERRITIN LEVEL ROUTINE VENIPUNCTURE OFFICE YWCCX-NYM-DQBKCODP SYST BP >= 140 MM HG6 IT DIAST BP 80-89 MM HG BASIC METABOLIC PANEL(BMP) CBC, INC PLATELETS AND DIFFERENTIAL ROUTINE VENIPUNCTURE Transitional Care- First 7 Days Of Disch arge SYST BP >= 140 MM HG6 IT DIAST BP < 80 MM HG DSCHRG MED/CURRENT MED MERGE BASIC METABOLIC PANEL(BMP) CBC, INC PLATELETS AND DIFFERENTIAL FERRITIN LEVEL VITAMIN D, 25-HYDROXY ROUTINE VENIPUNCTURE OFFICE RQNRO-VKK-JRTPZPMI SYST BP LT 130 MM HG DIAST BP < 80 MM HG EKG (ELECTROCARDIOGRAM) PULSE OXIMETRY, MULTIPLE Admin influenza virus vac FLU VACC PRSV FREE INC ANTIG OFFICE AQMLV-IXI-QBPIIADH SYST BP LT 130 MM HG DIAST BP >= 90 MM HG Chest Xray, 2 Views OFFICE JNTTM-SAX-CFKCIVFH SYST BP GE 130 - 139MM HG DIAST BP < 80 MM HG OFFICE FXWDP-KUT-ZYWUIUZT SYST BP >= 140 MM HG6 IT [...] MEDICARE Pneumococcal Conjugate Vaccine (PCV20) J OFFICE QOLHY-NRQ-OKVIZHLC SYST BP LT 130 MM HG DIAST BP < 80 MM HG INIT PREVENT PHYS EXAM; LIMITED TO NEW B ENEFICIARY BASIC METABOLIC PANEL(BMP) CBC, INC PLATELETS AND DIFFERENTIAL ROUTINE VENIPUNCTURE INTRAVENOUS INFUSION, HYDRATION; INITIAL , 31 MINUT NSALINE 1000CC OFFICE LFADF-PUU-JFGTAHIM SYST BP LT 130 MM HG DIAST BP < 80 MM HG DXA BONE DENSITY, AXIAL SCREENING MAMMOGRAM (CAD) Screening Digital Breast Tomosynthesis M OFFICE EQQAS-OBT-CZEWHRTP BASIC METABOLIC PANEL(BMP) ROUTINE VENIPUNCTURE X-RAY EXAM OF LUMBAR SPINE, A/P & LAT De KENALOG 10 MG KENALOG 10 MG ASP/INJ MAJOR JOINTOR BURSA, SHOULDER, H IP,KNEE W/O US GUIDANCE OFFICE DUXQT-VYS-DZFNBTRP IMMUN ADMIN (INC PERCUTANEOUS) SINGLE, F IRST INJ FLU VAC NO PRSV 4 IVA, 0.5mL DOSAGE OFFICE ELFZQ-CMU-GYKVXOGW DUPLEX SCAN OF ABD, PELV, SCROT, COMPLET E ULTRASOUND RETROPERITONEAL ( AORTA, RENAL, NODES) REAL TIME W/ DOCUMENTATION, CO DUPLEX SCAN LOWER EXTREMITY EXTREMITY STUDY/BILATERAL (VENECIA) 022 OFFICE QDVSH-KAE-UDTQLASX BASIC METABOLIC PANEL(BMP) ROUTINE VENIPUNCTURE OFFICE MKJKB-LPE-LVXJXXOA BASIC METABOLIC PANEL(BMP) ROUTINE VENIPUNCTURE BP OFFICE/OUTPATIENT VISIT EST OFFICE UXHUK-PWL-HESARPAH CBC, INC PLATELETS AND DIFFERENTIAL COMPREHEN METABOLIC PANEL CMP ROUTINE VENIPUNCTURE INTRAVENOUS INFUSION, HYDRATION; INITIAL , 31 MINUT NSALINE 1000CC BASIC METABOLIC PANEL(BMP) ROUTINE VENIPUNCTURE OFFICE JAWIP-HML-JHSLDFNS KENALOG 10 MG KENALOG 10 MG ASP/INJ MAJOR JOINTOR BURSA, SHOULDER, H IP,KNEE W/O US GUIDANCE X-RAY EXAM OF KNEES OFFICE WTOUB-YMU-QZUVXOQI BASIC METABOLIC PANEL(BMP) ROUTINE VENIPUNCTURE OFFICE LGPDS-FLP-BEIAZMOI BASIC METABOLIC PANEL(BMP) ROUTINE VENIPUNCTURE IMMUN ADMIN (INC PERCUTANEOUS) SINGLE, F IRST INJ FLU VACC PRSV FREE INC ANTIG OFFICE YDLRZ-BKS-EVWXOXMO BASIC METABOLIC PANEL(BMP) ROUTINE VENIPUNCTURE OFFICE PJJVG-ULX-PRVJYFKR OFFICE KOXMW-ULZ-VENPYWUD OFFICE BEYLK-BBK-RNDZVSQW BASIC METABOLIC PANEL(BMP) PARATHYROID HORMONE (PTH) URIC ACID, (S) VITAMIN D, 25-HYDROXY ROUTINE VENIPUNCTURE OFFICE IDEMQ-VXG-MBJWSYQF IMMUN ADMIN (INC PERCUTANEOUS) SINGLE, F IRST [...] DISCUSSION BASIC METABOLIC PANEL(BMP) ROUTINE VENIPUNCTURE OFFICE FPMLR-WYV-OKWQKRNU CT ABD&PELV 1+ SECTION/REGNS LOW OSMOLAR CONTRAST (300 TO 399 MG IODI NE) TISSUE EXAM BY PATHOLOGIST SCREENING COLONOSCOPY (NOT HIGH RISK) Jorge A UPPER GI ENDOSCOPY BIOPSY CBC, INC PLATELETS AND DIFFERENTIAL COMPREHEN METABOLIC PANEL [facility] 9 URINALYSIS, REFLEX (UA) ROUTINE VENIPUNCTURE OFFICE GVYIX-XCC-BTWSUEPL FERRITIN LEVEL COMPREHEN METABOLIC PANEL [facility] 9 ROUTINE VENIPUNCTURE OFFICE QSFCR-JDV-FBXMPTCI X-RAY EXAM OF FOOT OFFICE QKQJC-CDR-PVGBINIF Advance Directives Directive Yes / No Effective [...] Diagnoses Date Provider Providers Copied on Encounter [facility], [address], [place], [place], [address] , tel: [phone] Care Management No Information 5 Felicia Leung. [address], [place], [place], [address], [place]. tel:[phone] [facility], [address], [place], [place], [address] , [place] tel: [phone] [facility] No Information 5 Kodak Cannon. [address], [place], [place], [address], [place]. tel:[phone] [facility], [address], [place], [place], [address] , tel: [phone] [facility] No Information 5 Cizek Xochitl. [address], [place], [place], [address], . tel:[phone] [facility], [address], [place], [place], [address] , tel: [phone] [facility] No Information 5 Cizek Xochitl. [address], [place], [place], [address], [place]. tel: [phone] [facility], [address], [place], [place], [address] , tel: [phone] [facility] Other emphysema 5 Cizek Xochitl. [address], [place], [place], [address], . tel:[phone] [facility], [address], [place], [place], [address] , tel: [phone] [facility] No Information 5 Cizek Xochitl. [address], [place], [place], [address], [place]. tel:[phone] [facility], [address], [place], [place], [address] , tel: [phone] [facility] No Information 5 Cizek Xochitl. [address], [place], [place], [address], [place]. tel:[phone] OFFICE SLTRU-LLY-MZB RENETTA [facility], [address], [place], [place], [address] , tel: [phone] [facility] Chronic Conditions (chief complaint) [...] 4-202 5 Felicia Leung. [address], [place], [place], [address], [place]. tel:[phone] Referring Provider: Xochitl Perez, [address], [place], [address] . tel:[phone] OFFICE YELYV-JOQ-XUS [facility], [address], [place], [place], [address] , tel:[phone] [facility] IM acute visit (chief complaint)C hronic Conditions (chief complaint) Acute pneumoniaEssent ial (primary) hypertensionOth er emphysema 5 Chadwick Turner. [address], [place], [place], [address], [place]. tel:[phone] Referring Provider: Xochitl Perez, [address], [place], [address] . tel:[phone] [facility], [address], [place], [place], [address] , [place] tel:[phone] [facility] No Information 4 Felicia Leung. [address], [place], [place], [address], [place]. tel:[phone] OFFICE WKKVA-GBS-MEE [facility], [address], [place], [place], [address] , tel:[phone] [facility] IM Chronic Conditions (chief complaint) Stage 3a chronic kidney diseaseHyperten sive chronic kidney disease with stage 1 through stage 4 chronic kidney disease, or unspecified chronic kidney diseaseAtherosc lerosis of aortaOther emphysemaIron deficiency anemia, unspecified iron deficiency anemia typeActinic keratosisImpact ed cerumen of both earsVaginal drynessScreenin g mammogram for breast cancer 4 Kodak Cannon. [address], [place], [place], [address], [place]. tel:[phone] Referring Provider: Xochitl Perez, [address], [place], [address] . tel:[phone] [facility], [address], [place], [place], [address] , tel: [phone] [facility] No Information 4 Felicia Leung. [address], [place], [place], [address], . tel:[phone] [facility], [address], [place], [place], [address] , tel: [phone] [facility] No Information 4 Felicia Leung. [address], [place], [place], [address], [place]. tel:[phone] OFFICE DXSSF-TFI-OVQ [facility], [address], [place], [place], [address] , tel: [phone] [facility] Chronic Conditions (chief complaint) Hypertensive chronic kidney disease with stage 1 through stage 4 chronic kidney disease, or unspecified chronic kidney diseaseStage 3a chronic kidney diseaseFollicul itisNasal sore 4 Kodak Cannon. [address], [place], [place], [address], [place]. tel:[phone] Referring Provider: Xochitl Perez, [address], [place], [address] . tel:[phone] OFFICE DDBIK-STN-IQJ [facility], [address], [place], [place], [address] , tel: [phone] [facility] Hypertensive chronic kidney disease with stage 1 through stage 4 chronic kidney disease, or unspecified chronic kidney diseaseStage 3a chronic kidney disease 4 Kodak Cannon. [address], [place], [place], [address], [place]. [phone] Referring Provider: Xochitl Perez, [address], [place], [address] . tel:[phone] OFFICE WHFZQ-BHU-HWX [facility], [address], [place], [place], [address] , tel: [phone] [facility] Chronic Conditions (chief complaint) Hypertensive chronic kidney disease with stage 1 through stage 4 chronic kidney disease, or unspecified chronic kidney diseaseStage 3a chronic kidney diseaseAcute cystitis without hematuriaFatigu e, unspecified typeSymptoms of upper respiratory infection (URI)Intermitte nt constipation 4 Kodak Cannon. [address], [place], [place], [address], . tel:[phone] Referring Provider: Xochitl Perez, [address], [place], [address] . tel:[phone] OFFICE DLAIH-LCP-BDN [facility], [address], [place], [place], [address] , tel:[phone] [facility] Medicare preventive (chief complaint)M edicare preventive (chief complaint)C hronic Conditions (chief complaint) Hypertensive chronic kidney disease with stage 1 through stage 4 chronic kidney disease, or unspecified chronic kidney diseaseStage 3a chronic kidney diseaseMedicare annual wellness visit, subsequentAther osclerosis of aortaThoracic aortic aneurysm, without rupture, unspecifiedOste openia of multiple sitesAcute cystitis without hematuria 4 Felicia Leung. [address], [place], [place], [address], [place]. tel:[phone] Referring Provider: Xochitl Perez, [address], [place], [address] . tel:[phone] OFFICE FEZHY-IHE-YFN [facility], [address], [place], [place], [address] , tel:[phone] [facility] Chronic Conditions (chief complaint)c hronic conditions (chief complaint) Hypotension, unspecified hypotension typeHypertensiv e chronic kidney disease with stage 1 through stage 4 chronic kidney disease, or unspecified chronic kidney diseaseStage 3a chronic kidney diseaseUrinary frequencyAbnorm al urinalysis 4 Felicia Leung. [address], [place], [place], [address], . tel:[phone] Referring Provider: Xochitl Perez, [address], [place], [address] . tel:[phone] OFFICE XSHMY-SHC-BDX [facility], [address], [place], [place], [address] , tel: [phone] [facility] Chronic Conditions (chief complaint) Hypertensive chronic kidney disease with stage 1 through stage 4 chronic kidney disease, or unspecified chronic kidney diseaseStage 3a chronic kidney diseaseOther emphysemaIron deficiency anemia, unspecified iron deficiency anemia typeHypotension , unspecified hypotension type 4 Cizek Xochitl. [address], [place], [place], [address], . tel:[phone] Referring Provider: Xochitl Perez, [address], [place], [address] . tel:[phone] [facility], [address], [place], [place], [address] , tel: [phone] [facility] No Information 4 Cizek Xochitl. [address], [place], [place], [address], . tel:[phone] [facility], [address], [place], [place], [address] , tel: [phone] [facility] Urinary frequency 4 Bridgetzek Xochitl. [address], [place], [place], [address], . tel:[phone] OFFICE JUGZU-AFP-CQV [facility], [address], [place], [place], [address] , tel: [phone] [facility] Chronic Conditions (chief complaint) Hypertensive chronic kidney disease with stage 1 through stage 4 chronic kidney disease, or unspecified chronic kidney diseaseStage 3a chronic kidney diseaseOther emphysemaIron deficiency anemia, unspecified iron deficiency anemia type 4 Cizek Xochitl. [address], [place], [place], [address], . tel:[phone] Referring Provider: Xochitl Perez, [address], [place], [address] . tel:[phone] Transitional Care- First 7 Days Of Discharge [facility], [address], [place], [place], [address] , tel: [phone] [facility] Chronic Conditions (chief complaint) Hypertensive chronic kidney disease with stage 1 through stage 4 chronic kidney disease, or unspecified chronic kidney diseaseStage 3a chronic kidney diseaseAcute cystitis without hematuriaHypona tremiaHypokalem iaLeukocytosis, unspecified type 4 Felicia Leung. [address], [place], [place], [address], . tel:[phone] Referring Provider: Xochitl Perez, [address], [place], [address] . tel:[phone] [facility], [address], [place], [place], [address] , tel: [phone] [facility] No Information 4 Felicia Leung. [address], [place], [place], [address], . tel:[phone] Referring Provider: Xochitl Perez, [address], [place], [address] . tel:[phone] OFFICE JNKJI-MMD-ILY [facility], [address], [place], [place], [address] , tel: [phone] [facility] Chronic Conditions (chief complaint) Hypertensive chronic kidney disease with stage 1 through stage 4 chronic kidney disease, or unspecified chronic kidney diseaseStage 3a chronic kidney diseaseBilatera l primary osteoarthritis of kneeIron deficiency anemia, unspecified iron deficiency anemia typeOther emphysemaEssent ial (primary) hypertension 3 Felicia Leung. [address], [place], [place], [address], . tel:[phone] Referring Provider: Xochitl Perez, [address], [place], [address] . tel:[phone] OFFICE YXMEQ-DZR-PFT [facility], [address], [place], [place], [address] , tel: [phone] [facility] Chronic Conditions (chief complaint) Other emphysemaHypert ensive chronic kidney disease with stage 1 through stage 4 chronic kidney disease, or unspecified chronic kidney diseaseStage 3a chronic kidney diseaseBilatera l primary osteoarthritis of kneeHypoxia 3 Felicia Leung. [address], [place], [place], [address], . [phone] Referring Provider: Xochitl Perez, [address], [place], [address] . tel:[phone] OFFICE DKPCB-WHW-FVQ [facility], [address], [place], [place], [address] , tel: [phone] [facility] Chronic Conditions (chief complaint) Other emphysemaHypoxi aPain in left knee 3 Felicia Leung. [address], [place], [place], [address], . [phone] Referring Provider: Xochitl Perez, [address], [place], [address] . tel:[phone] OFFICE IDKWR-SST-SWX [facility], [address], [place], [place], [address] , tel:[phone] [facility] acute visit (chief complaint) Hypertensive chronic kidney disease with stage 1 through stage 4 chronic kidney disease, or unspecified chronic kidney diseaseStage 3a chronic kidney diseasePain in left kneePain in right kneeGastroesoph ageal reflux disease with esophagitis without hemorrhage 3 Nohemi Mckeon. [address], [place], [place], [address], [place]. tel:[phone] Referring Provider: Xochitl Perez, [address], [place], [address] . [phone] [facility], [address], [place], [place], [address] , tel:[phone] [facility] No Information 3 Km Stokes. [address] [facility], [address] [address], [place], [place], [address], [place]. tel:[phone] Referring Provider: Xochitl Perez, [address], [place], [address] . tel:[phone] [facility], [address], [place], [place], [address] , [place] tel:[phone] [facility] Information 3 Maikel Stein. [address] [place], [address], . [phone] Referring Provider: Xochitl Perez, [address], [place], [address] . tel:[phone] [facility], [address], [place], [place], [address] , [place] tel: [phone] [facility] Iron deficiency anemia, unspecified iron deficiency anemia type 3 Felicia Leung. [address], [place], [place], [address], [place]. [phone] OFFICE DXVMG-CPH-UFB [facility], [address], [place], [place], [address] , [place] tel: [phone] [facility] Medicare preventive (chief complaint)C hronic Conditions (chief complaint) Hypertensive chronic kidney disease with stage 1 through stage 4 chronic kidney disease, or unspecified chronic kidney diseaseStage 3a chronic kidney diseaseOther emphysemaAthero sclerosis of aortaSenile purpuraMedicare annual wellness visit, subsequentOsteo penia of multiple sitesAnemia, unspecified typeRight wrist fracture, sequelaImpacted cerumen, bilateralMild cognitive impairment 3 Felicia Leung. [address], [place], [place], [address], [place]. tel:[phone] Referring Provider: Xochitl Perez, [address], [place], [address] . tel:[phone] OFFICE OYBWR-NCW-PIF [facility], [address], [place], [place], [address] , [place] [phone] [facility] acute visit (chief complaint) Diarrhea, unspecified typeHypertensiv e chronic kidney disease with stage 1 through stage 4 chronic kidney disease, or unspecified chronic kidney diseaseStage 3a chronic kidney disease 3 Nohemi Mckeon. [address], [place], [place], [address], . tel:[phone] Referring Provider: Xochitl Perez, [address], [place], [address] . tel:[phone] [facility], [address], [place], [place], [address] , [phone] [facility] No Information 3 Felicia Lindsay. [address] [place] [address], [address], . tel:[phone] Referring Provider: Xochitl Perez, [address], [place], [address] . tel:[phone] OFFICE FLLVU-RKE-NXK [facility], [address], [place], [place], [address] , [phone] [facility] Chronic Conditions (chief complaint) Hypertensive chronic kidney disease with stage 1 through stage 4 chronic kidney disease, or unspecified chronic kidney diseaseStage 3a chronic kidney diseasePeripher al vascular diseaseAtherosc lerosis of aortaOther emphysema 3 Felicia Leung. [address], [place], [place], [address], . tel:[phone] Referring Provider: Xochitl Perez, [address], [place], [address] . tel:[phone] OFFICE ZGYUA-TZR-GDT [facility], [address], [place], [place], [address] , tel:[phone] [facility] Chronic Conditions (chief complaint) Hypertensive chronic kidney disease with stage 1 through stage 4 chronic kidney disease, or unspecified chronic kidney diseaseStage 3a chronic kidney diseasePain in right kneePain in left kneeOther chronic painLumbar radiculopathy 2 Felicia Leung. [address], [place], [place], [address], [place]. tel:[phone] Referring Provider: Xochitl Perez, [address], [place], [address] . tel:[phone] [facility], [address], [place], [place], [address] , tel:[phone] [facility] No Information 2 Felicia Leung. [address], [place], [place], [address], [place]. tel:[phone] Referring Provider: Xochitl Perez, [address], [place], [address] . tel:[phone] OFFICE TTSSM-UGN-BKM ANDED [facility], [address], [place], [place], [address] , tel:[phone] [facility] Chronic Conditions (chief complaint) Hypertensive chronic kidney disease with stage 1 through stage 4 chronic kidney disease, or unspecified chronic kidney diseaseStage 3a chronic kidney diseaseLumbar radiculopathy 2 Felicia Leung. [address], [place], [place], [address], [place]. tel:[phone] Referring Provider: Xochitl Perez, [address], [place], [address] . [phone] [facility], [address], [place], [place], [address] , [place] tel:[phone] [facility] No Information 2 Brenna Stokes. [address], [place], [place], [address], [place]. tel:[phone] Referring Provider: Garfield Basilio, [address] [facility] [address], [place], [address]. [phone] [facility], [address], [place], [place], [address] , [place] tel:[phone] [facility] No Information 2 Jaleel Jones. [address], [place], [place], [address], [place]. tel:[phone] Referring Provider: Xochitl Perez, [address], [place], [address] . tel:[phone] OFFICE RDVSB-NES-UTY [facility], [address], [place], [place], [address] , tel:[phone] [facility] IM Hypertensive chronic kidney disease with stage 1 through stage 4 chronic kidney disease, or unspecified chronic kidney diseaseStage 3a chronic kidney diseaseAtherosc lerosis of aortaPeripheral vascular disease 2 Felicia Leung. [address], [place], [place], [address], [place]. tel:[phone] Referring Provider: Xochitl Perez, [address], [place], [address] . tel:[phone] OFFICE RKAGG-KJX-ZKM [facility], [address], [place], [place], [address] , [place] tel:[phone] [facility] acute visit (chief complaint) Superficial phlebitisBenign essential hypertension Jul- 2 Nohemi Mckeon. [address], [place], [place], [address], [place]. tel:[phone] Referring Provider: Xochitl Perez, [address], [place], [address] . tel:[phone] OFFICE/OUTPAT IENT VISIT EST [facility], [address], [place], [place], [address] , tel:[phone] [facility] IM DehydrationHype rtensive chronic kidney disease with stage 1 through stage 4 chronic kidney disease, or unspecified chronic kidney disease 2 Felicia Leung. [address], [place], [place], [address], . tel:[phone] Referring Provider: Xochitl Perez, [address], [place], [address] . tel:[phone] OFFICE WFMPJ-EWW-QSF [facility], [address], [place], [place], [address] , tel: [phone] [facility] Chronic Conditions (chief complaint) Acute UTIDehydrationB enign hypertensive renal diseaseStage 3a chronic kidney disease Apr-0 8 2 Cizek Xochitl. [address], [place], [place], [address], [place]. tel:[phone] Referring Provider: Xochitl Perez, [address], [place], [address] . tel:[phone] OFFICE LFFHV-XRV-QFQ [facility], [address], [place], [place], [address] , tel:[phone] [facility] Chronic Conditions (chief complaint) Benign hypertensive renal diseaseOther emphysemaStage 3a chronic kidney diseaseDDD (degenerative disc disease), cervicalBilater al primary osteoarthritis of knee Jun-0 2 2 Cizek Xochitl. [address], [place], [place], [address], [place]. [phone] Referring Provider: Xochitl Perez, [address], [place], [address] . tel:[phone] OFFICE BDJXH-MUF-DAK [facility], [address], [place], [place], [address] , tel:[phone] [facility] Chronic Conditions (chief complaint) Benign hypertensive renal diseaseStage 3a chronic kidney diseaseOther emphysemaDDD (degenerative disc disease), cervical Dec-0 1 Cizek Xochitl. [address], [place], [place], [address], [place]. tel:[phone] Referring Provider: Xochitl Perez, [address], [place], [address] . tel:[phone] OFFICE [facility] [address], [place], [place], [address] , tel:[phone] [facility] Chronic Conditions (chief complaint) Benign hypertensive renal diseaseStage 3a chronic kidney diseaseThoracic aortic aneurysm without rupture Sep-0 - 1 Felicia Leung. [address], [place], [place], [address], . tel:[phone] Referring Provider: Xochitl Perez, [address], [place], [address] . tel:[phone] OFFICE BMYHG[facility]WLT[facility]DTE [facility], [address], [place], [place], [address] , tel: [phone] [facility] Chronic Conditions (chief complaint) Benign hypertensive renal diseaseStage 3a chronic kidney diseaseOther emphysemaTear of right biceps muscle, subsequent encounter Sep-0 1 Felicia Leung. [address], [place], [place], [address], [place]. tel:[phone] Referring Provider: Xochitl Perez, [address], [place], [address] . tel:[phone] OFFICE SJUMZ-ULV-EFI [facility], [address], [place], [place], [address] , tel: [phone] [facility] Chronic Conditions (chief complaint) Benign hypertensive renal diseaseStage 3a chronic kidney diseaseThoracic aortic aneurysm without ruptureAtherosc lerosis of aortaSenile purpuraTear of right biceps muscle, subsequent encounter Apr-2 1 Felicia Leung. [address], [place], [place], [address], [place]. tel:[phone] Referring Provider: Xochitl Perez, [address], [place], [address] . tel:[phone] [facility], [address], [place], [place], [address] , tel: [phone] [facility] Strain of muscle, fascia and tendon of other parts of biceps, right arm, initial encounter Apr-2 3- 1 Felicia Leung. [address], [place], [place], [address], [place]. tel:[phone] OFFICE UGEYA-NHU-BIJ [facility], [address], [place], [place], [address] , tel: [phone] [facility] acute visit (chief complaint) Tear of right biceps muscle, initial encounterBenign hypertensive renal diseaseStage 3a chronic kidney disease Jul- 1 Nohemi Mckeon. [address], [place], [place], [address], . tel:[phone] Referring Provider: Xochitl Perez, [address], [place], [address] . tel:[phone] OFFICE QJDKR-MQZ-CXO [facility], [address], [place], [place], [address] , tel: [phone] [facility] Chronic Conditions (chief complaint) Hypertensive chronic kidney disease with stage 1 through stage 4 chronic kidney disease, or unspecified chronic kidney diseaseChronic kidney disease, stage 3 unspecifiedOthe r emphysema Jan- 0 Felicia Leung. [address], [place], [place], [address], [place]. [phone] Referring Provider: Xochitl Perez, [address], [place], [address] . tel:[phone] OFFICE QRZIQ-WIE-ZUO [facility], [address], [place], [place], [address] , tel: [phone] [facility] Chronic Conditions (chief complaint) Other emphysemaThorac ic aortic aneurysm without ruptureHyperten sive chronic kidney disease with stage 1 through stage 4 chronic kidney disease, or unspecified chronic kidney diseaseChronic kidney disease, stage 3 (moderate)Vitam in D deficiencyFoot pain, right Sep-0 0 Felicia Leung. [address], [place], [place], [address], [place]. [phone] Referring Provider: Xochitl Perez, [address], [place], [address] . tel:[phone] [facility], [address], [place], [place], [address] , [place] tel:[phone] [facility] No Information 0 Brenna Stokes. [address], [place], [place], [address], [place]. tel:[phone] Referring Provider: Xochitl Perez, [address], [place], [address] . tel:[phone] [facility], [address], [place], [place], [address] , tel:[phone] [facility] Breast nodule 0 Felicia Leung. [address], [place], [place], [address], [place]. [phone] [facility], [address], [place], [place], [address] , tel:[phone] [facility] No Information 0 Hank Ricci. [address], [place], [place], [address], [place]. tel:[phone] Referring Provider: Xochitl Perez, [address], [place], [address] . tel:[phone] TELEPHONE E&M SERVICE BY A PHYSICIAN;5-1 0 MINUTES OF MEDICAL DISCUSSION [facility], [address], [place], [place], [address] , tel:[phone] [facility] Chronic Conditions (chief complaint) Other emphysemaAllerg ic dermatitis Jul-2 0 Felicia Leung. [address], [place], [place], [address], [place]. [phone] Referring Provider: Xochitl Perez, [address], [place], [address] . tel:[phone] OFFICE SCJNT-EGP-UUP RENETTA [facility], [address], [place], [place], [address] , tel:[phone] [facility] Chronic Conditions (chief complaint) Essential hypertensionOth er emphysemaThorac ic aortic aneurysm without ruptureSenile purpuraAtherosc lerosis of aorta Mar- 0-202 0 Felicia Leung. [address], [place], [place], [address], [place]. tel:[phone] Referring Provider: Xochitl Perez, [address], [place], [address] . tel:[phone] [facility], [address] [facility], [place], [place], [address] , [place] tel:[phone] [facility] No Information 0 Felicia Lindsay. [address] [place] [place], [place], [address], . tel:[phone] Referring Provider: Kike Barbour, [address] [place] [address], [address] . tel:[phone] [facility], [address], [address] , tel:[phone] [facility] Periumbilical abdominal pain 0 Km Stokes. [address] [place] [address], [address], [place]. tel:[phone] [facility], [address] [address], [place], [place], [address] , [place] tel:[phone] [facility] No Information 0 Km Stokes. [address] [place] [address], [address], [place]. tel:[phone] Referring Provider: Xochitl Perez, [address], [place], [address] . tel:[phone] [facility], [address] [place] [address], [address] , [place] tel:[phone] [facility] No Information 0 Km Stokes. [address] [place] [address], [address], [place]. tel:[phone] Referring Provider: Xochitl Perez, [address], [place], [address] . tel:[phone] OFFICE TRSDH-FYC-NWI RENETTA [facility], [address], [place], [place], [address] , tel: [phone] [facility] Chronic Conditions (chief complaint) Essential hypertensionOth er emphysemaRight lower quadrant abdominal painAnemia, unspecified type 9 Felicia Leung. [address], [place], [place], [address], . tel:[phone] Referring Provider: Xochitl Perez, [address], [place], [address] . tel:[phone] OFFICE SYPJP-SNK-BXY [facility], [address], [place], [place], [address] , tel: [phone] [facility] Chronic Conditions (chief complaint) Essential hypertensionOth er emphysemaAnkle edema, bilateralOnycho mycosis 9 Felicia Leung. [address], [place], [place], [address], . tel:[phone] Referring Provider: Xochitl Perez, [address], [place], [address] . tel:[phone] OFFICE SKIXI-VCY-WCA [facility], [address], [place], [place], [address] , tel: [phone] [facility] acute visit (chief complaint) Left foot painTobacco user 9 Kodak Cannon. [address], [place], [place], [address], [place]. tel:[phone] Referring Provider: Xochitl Perez, [address], [place], [address] . tel:[phone] [facility], [address], [place], [place], [address] , tel: [phone] [facility] No Information 9 Felicia Leung. [address], [place], [place], [address], . tel:[phone] Referring Provider: Xochitl Perez, [address], [place], [address] . tel:[phone] [facility], [address], [place], [place], [address] , tel: [phone] [facility] Chronic Conditions (chief complaint) Essential hypertensionOth er emphysemaSenile purpuraLung nodulesThoracic aortic aneurysm without ruptureTobacco use 9 Felicia Leung. [address], [place], [place], [address], [place]. tel:[phone] Referring Provider: Xochitl Perez, [address], [place], [address] . [phone] [facility], [address], [place], [place], [address] , tel: [phone] [facility] Chronic Conditions (chief complaint) Essential hypertensionOth er emphysemaTobacc o consumptionPneu monia of both lower lobes due to infectious organism Fe 9 Felicia Leung. [address], [place], [place], [address], [place]. tel:[phone] Referring Provider: Xochitl Perez, [address], [place], [address] . tel:[phone] [facility], [address], [place], [place], [address] , tel: [phone] [facility] Chronic Conditions (chief complaint) Pneumonia of both lower lobes due to infectious organismOther emphysemaTobacc o consumptionEsse ntial hypertensionSen ile purpura 9 Felicia Leung. [address], [place], [place], [address], [place]. tel:[phone] Referring Provider: Xochitl Perez, [address], [place], [address] . tel:[phone] [facility], [address], [place], [place], [address] , [place] tel: [phone] [facility] Abnormal chest CT 8 Hank Ricci. [address], [place], [place], [address], [place]. tel:[phone] Referring Provider: Xochitl Perez, [address], [place], [address] . tel:[phone] [facility], [address], [place], [place], [address] , tel: [phone] [facility] Annual physical examEssential hypertensionOst eopeniaAnxiety disorder, unspecifiedVita min D deficiencyTobac co consumptionGene ralized abdominal painBilateral impacted cerumen 8 Cidawit Leung. [address], [place], [place], [address], [place]. [phone] Referring Provider: Xochitl Perez, [address], [place], [address] . tel:[phone] [facility], [address], [place], [place], [address] , [place] tel: [phone] [facility] Encounter for screening for osteoporosis 8 Felicia Leung. [address], [place], [place], [address], [place]. [phone] [facility], [address], [place], [place], [address] , [place] tel: [phone] [facility] Essential hypertensionSen ile purpuraAnxiety disorder, unspecified 8 Cizemarilyn Xochitl. [address], [place], [place], [address], [place]. tel:[phone] Referring Provider: Xochitl Perez, [address], [place], [address] . tel:[phone] [facility], [address], [place], [place], [address] , [place] tel: [phone] [facility] IM OsteopeniaEssen tial hypertensionSen ile purpuraEncounte r for gynecological examination (general) (routine) without abnormal findingsPolyost eoarthritis, unspecifiedAnxi ety disorder, unspecifiedFall , initial encounter 7 Cizek Xochitl. [address], [place], [place], [address], [place]. tel:[phone] Referring Provider: Xochitl Perez, [address], [place], [address] . tel:[phone] [facility], [address], [place], [place], [address] , tel: [phone] [facility] Essential hypertensionAcu te pain of right shoulder 0 2-201 7 Cizek Xochitl. [address], [place], [place], [address], [place]. tel:[phone] Referring Provider: Xochitl Perez, [address], [place], [address] . [phone] [facility], [address], [place], [place], [address] , tel: [phone] [facility] Essential hypertensionSen ile purpura 4-201 6 Cizek Xochitl. [address], [place], [place], [address], [place]. tel:[phone] Referring Provider: Xochitl Perez, [address], [place], [address] . [phone] [facility], [address], [place], [place], [address] , [place] tel: [phone] [facility] No Information 3-201 6 Cizek Xochitl. [address], [place], [place], [address], [place]. tel:[phone] [facility], [address], [place], [place], [address] , tel: [phone] [facility] Essential hypertension 0 5-201 6 Cizek Xochitl. [address], [place], [place], [address], [place]. tel:[phone] Referring Provider: Xochitl Perez, [address], [place], [address] . tel:[phone] [facility], [address], [place], [place], [address] , [place] tel: [phone] [facility] Elevated blood pressure (not hypertension) 6-201 6 Cizek Xochitl. [address], [place], [place], [address], [place]. tel: [phone] [facility], [address], [place], [place], [address] , [place] tel: [phone] [facility] Essential hypertension 9 6 Cizek Xochitl. [address], [place], [place], [address], [place]. tel: [phone] Referring Provider: Xochitl Perez, [address], [place], [address] . tel:[phone] [facility], [address], [place], [place], [address] , tel: [phone] [facility] Essential hypertensionAcu te viral conjunctivitis of both eyes 4 6 Cizek Xochitl. [address], [place], [place], [address], [place]. tel: [phone] Referring Provider: Xochitl Perez, [address], [place], [address] . tel:[phone] [facility], [address], [place], [place], [address] , [place] tel: [phone] [facility] Osteopenia 0 6 Cizek Xochitl. [address], [place], [place], [address], [place]. tel: [phone] [facility], [address], [place], [place], [address] , [place] tel: [phone] [facility] Right-sided low back pain without sciaticaOsteope niaEssential hypertension 0-201 6 Detmer Bety. [address], [place], [place], [address], [place]. tel: [phone] Referring Provider: Xochitl Perez, [address], [place], [address] . tel:[phone] [facility], [address], [place], [place], [address] , [place] tel: [phone] [facility] Routine gynecological examOsteoarthro sis, Unspecified, Unspecified SiteOsteopeniaE levated blood pressure (not hypertension)Ce rumen impactionAbdomi nal painAnxiety state, unspecified 5 Felicia Leung. [address], [place], [place], [address], [place]. tel:[phone] Referring Provider: Xochitl Perez, [address], [place], [address] . tel:[phone] [facility], [address], [place], [place], [address] , [place] tel: [phone] [facility] Elevated blood pressure (not hypertension)Os teoarthrosis, generalized, involving unspecifiedToba smooth stucco resurfacer useAnxiety state, unspecifiedOste openiaCerumen impactionRoutin e gynecological exam 3 Felicia Leung. [address], [place], [place], [address], [place]. tel:[phone] Referring Provider: Xochitl Perez, [address], [place], [address] . tel:[phone] [facility], [address], [place], [place], [address] , [place] tel: [phone] [facility] Urinary tract infection, site not specifiedAcute upper respiratory infections of unspecified siteTobacco use disorder 3 Detmer Bety. [address], [place], [place], [address], [place]. tel:[phone] Referring Provider: Xochitl Perez, [address], [place], [address] . tel:[phone] [facility], [address], [place], [place], [address] , [place] tel: [phone] [facility] Osteoarthrosis, generalized, involving unspecified siteAnxiety state, unspecifiedToba smooth stucco resurfacer use disorderUrinary tract infection, site not specifiedElevat ed blood pressure reading without diagnosis of hypertension 2 Felicia Leung. [address], [place], [place], [address], [place]. tel:[phone] Referring Provider: Xochitl Perez, [address], [place], [address] . tel:[phone] [facility], [address], [place], [place], [address] , [place] tel: [phone] [facility] Urinary tract infection 2 Detmer Bety. [address], [place], [place], [address], [place]. tel:[phone] [facility], [address], [place], [place], [address] , tel: [phone] [facility] Frequency of urinationElevat ed blood pressure (not hypertension)To bacco use 2 Detmer Bety. [address], [place], [place], [address], [place]. tel:[phone] Referring Provider: Xochitl Perez, [address], [place], [address] . tel:[phone] [employer] [facility], [address], [place], [place], [address] , [place] tel: [phone] [facility] Shoulder pain, left 2 Detmer Bety. [address], [place], [place], [address], [place]. tel:[phone] Referring Provider: Xochitl Perez, [address], [place], [address] . tel:[phone] [facility], [address], [place], [place], [address] , tel: [phone] [facility] Superficial injury of cornea 1 Siri Anthony. [address], [place], [place], [address]. tel:[phone] Referring Provider: Xochitl Perez, [address], [place], [address] . tel:[phone] [facility], [address], [place], [place], [address] , tel: [phone] [facility] Routine gynecological examinationAnxi ety state, unspecifiedOste oarthrosis, Unspecified, Unspecified SiteImpacted cerumen 8-201 1 Cizek Xochitl. [address], [place], [place], [address], [place]. tel:[phone] Referring Provider: Xochitl Perez, [address], [place], [address] . tel:[phone] [facility], [address], [place], [place], [address] , tel: [phone] [facility] PAIN IN LIMBREDNESS/DIS CHARGE OF EYE 1201 1 Cizek Xochitl. [address], [place], [place], [address], [place]. tel: [phone] [facility], [address], [place], [place], [address] , tel: [phone] [facility] TOBACCO USE DISORDER 7-201 0 Cizek Xochitl. [address], [place], [place], [address], [place]. tel: [phone] [facility], [address], [place], [place], [address] , [place] tel: [phone] [facility] ANXIETY STATE NOSROUTINE MEDICAL EXAMSCREEN MAL NEOP-RECTUM 5-200 9 Cizek Xochitl. [address], [place], [place], [address], [place]. tel: [phone] [facility], [address], [place], [place], [address] , tel: [phone] [facility] PURE HYPERCHOLESTERO YELENA 8-200 6 Cizek Xochitl. [address], [place], [place], [address], [place]. tel: [phone] [facility], [address], [place], [place], [address] , tel: [phone] [facility] GENERAL OSTEOARTHROSISL LOIS-TERM USE MEDS NEC Sep-0 1-200 5 Cizek Xochitl. [address], [place], [place], [address], . tel: [phone] [facility], [address], [place], [place], [address] , tel: [phone] [facility] [place] OTHER SPECF VACNATION Dec-0 3-200 2 Cizek Xochitl. [address], [place], [place], [address], . tel: [phone] [facility], [address], [place], [place], [address] , tel: [phone] [facility] HORMONE REPLACE POSTMENO Sep-2 6-200 0 Cizek Xochitl. [address], [place], [place], [address], [place]. tel: [phone] [facility], [address], [place], [place], [address] , tel: [phone] [facility] SCREEN-BLOOD DIS NOS August-0 9-200 0 Cizek Xochitl. [address], [place], [place], [address], . tel: [phone] [facility], [address], [place], [place], [address] , tel: [phone] [facility] SCREEN FOR HYPERTENSION Apr-0 6-200 0 Cizek Xochitl. [address], [place], [place], [address], . tel:[phone] Family History Family Member Type Diagnosis Age At Onset No Information Immunizations Vaccine Date Status Comments [facility], promise-sucrose, 30mcg/0.3mL dose, 12 years [...] er Payers Payer name Insurance type Covered libertarian ID Authoriza tion(s) [place] [facility] [place] [id number] MEDICARE MB [id number] [employer] MDCR PPO PLANS [place] [id number] MEDICARE MB [id number] [facility] OPEN ACCESS I II III CI [id number] S01 MEDICARE MB [id number] [facility] OPEN ACCESS I II III CI [id number] S01 [facility] OPEN ACCESS I II III CI [id number] S01 [facility] OPEN ACCESS I II III CI [id number] S01 [employer] HMO CI [id number] [employer] HMO CI [id number] [employer] HMO CI [id number] [employer] HMO CI [id number] Social History Type Description Quantity Date Captured [...] ordered Referral Referred To: Ashwin Hinson [address] [facility]
[address] [place], [phone] Ordered: Referrals: Pulmonology. Ashwin Hinson. Evaluation/diagnostic/treatment - Level 3 ordered Referral Referred To: [address], [phone] Ordered: CT scan of chest with contrast ordered Referral Referred To: [address] [place], [place], [phone] Ordered: Screening mammography of both breasts Appointment date/timeframe: 08/08/2024 ordered Referral Referred To: [address] [place], [place], [phone] Ordered: Colonoscopy, flexible; with biopsy, single or multiple Appointment date/timeframe: 11/05/2022 ordered Referral Referred To: [address] [place], [place], [id number] Ordered: Upper gastrointestinal endoscopy Appointment date/timeframe: 11/05/2022 ordered Referral Referred To: Robert Janneth THOMAS Scott[address] [place], [phone] Ordered: Referrals: Orthopedic Surgery. Robert Lagunas DO. Evaluation/diagnostic/treatment - Level 3 ordered Referral Referred To: [address] [place] [address], [id number] Ordered: VENECIA (ankle brachial index) ordered Referral Referred To: [address] [place] [address], [id number] Ordered: Complete Doppler ultrasound of arteries of both lower extremities ordered Referral Ordered: X-RAY EXAM OF KNEES Bilateral ordered Referral Ordered: Complete Doppler ultrasound of renal artery ordered Referral Ordered: Complete duplex scan of renal vessels ordered Referral Ordered: CT of right upper extremity without contrast Right Appointment date/timeframe: 10/09/2020 ordered Referral Referred To: [address] [place] [address], [id number] Ordered: MRI upper extremity oth than jt w/o contr matrl ordered Referral Ordered: X-RAY EXAM OF FOOT Right ordered Referral Referred To: [address] [place] [address], [id number] Ordered: Spot compression mammography of left breast Left breast ordered Referral Referred To: [address] [place] [address], [id number] [id number] Ordered: US breast left limited Left breast ordered Referral Referred To: [address] [place] [address], [id number] Ordered: SCREENING MAMMOGRAM (CAD) Bilateral breast Appointment date/timeframe: 07/19/2019 ordered Referral Referred To: [address] [place] [address], [id number] [phone] Ordered: CT angiography chest w/contrast/noncontrast Appointment date/timeframe: 07/19/2019 ordered Referral Ordered: CT abdomen and pelvis w contrast ordered Referral Referred To: [id number] [facility]
[address], [id number] [id number] Ordered: COLONOSCOPY, Flexible, Proximal To Splenic, Diagnostic, Wor W/O Collection Of Sp Appointment date/timeframe: 06/01/2019 ordered Referral Referred To: [id number] [facility]
[address], [id number] Ordered: EGD, FLEXIBLE, TRANSORAL, DIAGNOSTIC W/ COLLECTION OF SPECIMEN Appointment date/timeframe: 06/01/2019 ordered Referral Ordered: X-RAY EXAM OF FOOT Left ordered Referral Ordered: Chest Xray, 2 Views ordered Appointment Fara Valencia BOOKED Future Order: Radiology Order Co mplete Doppler ultrasound of renal artery ([id number]), Sent on: Sent Future Order: Radiology Order Co mplete duplex scan of renal vessels ([id number]), Sent on: Sent Future Order: Radiology Order MR I upper extremity oth than jt w/o contr matrl ([id number]), Sent on: Sent History Of Present Illness Encounter Date Complaint History Of Prese nt Illness Chronic Conditions *See Chronic Conditions HPI acute visit Patient presents for an ER follow up. She went to [facility] on 04/17/2024 for shortness of breath, [...] an ER follow up. She went to [facility] on 04/17/2024 for shortness of breath, [...] and above. Chronic Conditions *See Chronic Conditions [facility] Chronic Conditions *See Chronic Conditions [facility] Chronic Conditions *See Chronic Conditions [facility] Chronic Conditions *See Chronic Conditions [facility] Medicare preventive A Health Ris [...] changes made. chronic conditions *See Chronic Conditions [facility] Chronic Conditions *See Chronic Conditions [facility] Chronic Conditions *See Chronic Conditions [facility] Chronic Conditions *See Chronic Conditions [facility] Chronic Conditions *See Chronic Conditions [facility] Chronic Conditions *See Chronic Conditions [facility] Chronic Conditions *See Chronic Conditions [facility] Chronic Conditions *See Chronic Conditions [facility] acute visit Chief complaint: knee [...] frothy urine. Chronic Conditions *See Chronic Conditions [facility] Chronic Conditions *See Chronic Conditions [facility] Chronic Conditions *See Chronic Conditions [facility] Chronic Conditions *See Chronic Conditions [facility] acute visit Chief complaint: ankle pain. Painful lump and redness around her right ankle. This began 3 days ago. Tender to touch. Very warm to touch. No injury. Taking Tylenol and applying ice. Increased swelling after standing all day at work.Has hypertension. Taking meds. No chest pain or headache. Chronic Conditions *See Chronic Conditions [facility] Chronic Conditions *See Chronic Conditions [facility] Chronic Conditions *See Chronic Conditions [facility] Chronic Conditions *See Chronic Conditions [facility] Chronic Conditions *See Chronic Conditions [facility] Chronic Conditions *See Chronic Conditions [facility] acute visit Chief complaint: right [...] frothy urine. Chronic Conditions *See Chronic Conditions [facility] Chronic Conditions *See Chronic Conditions [facility] Chronic Conditions *See Chronic Conditions [facility] Chronic Conditions *See Chronic Conditions [facility] Chronic Conditions *See Chronic Conditions [facility] Chronic Conditions *See Chronic Conditions [facility] acute visit Chief complaint: left [...] iron deficiency anemia type [facility].Use this to help with shortness of [...] unspecified chronic kidney disease Start doxycycline, t olfa 1 tablet twice daily for 7 days to treat. Can try warm compresses. Call if not improving. Related to Folliculitis Recommend [place] nasal gel to help with this. Related [...] chronic kidney disease Doing well. Normal m [place] testing. Schedule mammogram. Follow up in 3 [...] if you stay at home, use hand weapons officer naval activity and wash your hands frequently. Especially when [...] if you stay at home, use hand weapons officer naval activity and wash your hands frequently. Especially when [...] if you stay at home, use hand weapons officer naval activity and wash your hands frequently. Especially when [...]
--- NOTE | 2024-07-07 17:30 | WPDSIXMINUTE ---
Six Minute Walk Procedure Procedure Performed Pulmonary Stress Test (6 min walk) Six Minute Walk Six Minute Walk: This is a 6 minute walk test. The test was performed and interpreted in accordance with the 2014 ERS/ATS task force guidelines. Findings: The patient's resting room air oxygen saturation measured by pulse oximetry was 98%, the heart rate was 69 bpm, and the modified Mitzi dyspnea score was 0. Patient ambulated for 274 meters and oxygen saturation remained 95 to 98%. At the end of the study the heart rate was 90 bpm and the modified Mitzi dyspnea score was 1. The patient did not qualify for supplemental oxygen at rest or with ambulation. There are no prior studies for comparison.
--- NOTE | 2024-07-07 17:31 | WPDPFTINT ---
PFT Procedure Performed PFT Procedure Performed Spirometry with Pre/Post Bronchodilator Plethysmography (Lung Vol) Diffusing Cap (DLCO) Flow Vol Loop PFT Interpretation This is a pulmonary function test with pre and post-bronchodilator spirometry, plethysmography and diffusing capacity. The test was performed and results interpreted in accordance with the 2019 and 2005 ATS/ERS Task Force guidelines respectively using the Global Lung Function Initiative-2012 reference equations. Patient demonstrated good effort and cooperation. Reproducibility criteria were met. The quality of the pre bronchodilator spirometry maneuver was Grade A and post bronchodilator spirometry maneuver was Grade A. Findings: Spirometry: There is decreased maximal expiratory airflow at all lung volumes with concave expiratory flow tracing. The contour the inspiratory flow tracing is normal. The pre bronchodilator FVC is 2.70 L, 83% predicted. The pre bronchodilator FEV1 is 1.44 L, 57% predicted. The pre bronchodilator FEV1: FVC ratio is 53%. The post bronchodilator FVC is 2.63 L, representing a 3% decrease. The post bronchodilator FEV1 is 1.44 L, representing 1% decrease. The post bronchodilator FEV1: FVC ratio is 55%. Plethysmography: The total lung capacity is 4.59 L, 84% predicted. The functional residual capacity is 3.35 L, 107% predicted. The residual volume is 1.89 L, 83% predicted. Diffusing capacity: The diffusing capacity unadjusted for hemoglobin and carboxyhemoglobin is 9.3, 42% predicted. The diffusing capacity adjusted for alveolar volume is 2.75, 65% predicted. Impression: There is a moderately severe obstructive abnormality. There is no significant improvement after inhaling a single dose of albuterol. The lung volumes are normal. The diffusing capacity unadjusted for hemoglobin and carboxyhemoglobin is moderately decreased and remains mildly decreased when adjusted for alveolar volume. There are no prior studies for comparison
== END 2024-07-07 08:35 | disposition home or self-care (01) ==
LOC: ANHPFT 08:35
PROVIDERS: Visit Provider Internal Medicine Critical Care Medicine
DX: R94.2 Abnormal results of pulmonary function studies (principal); J44.9 Chronic obstructive pulmonary disease, unspecified
CPT/HCPCS: 94060; 94618; 94726; 94729

== ENCOUNTER 2024-07-13 14:30 | Outpatient (RCR) | payer MEDICARE, SELFPAY ==
--- NOTE | 2024-06-08 17:05 | OPREHPOC ---
Outpatient Therapy Plan of Care This is a Multidisciplinary Plan of Care that may contain components documented by all disciplines (PT, OT, and ST.) PT Problem 1 PT Problem #1 Knowledge Deficit PT Goal 1 Goal / Goal Update [place] with HEP Target Visit 4 PT Goal 2 Goal / Goal Update Report no pain greater than 2/10 for 2 consecutive weeks Target Visit 8 PT Problem 2 PT Problem #2 Impaired Range of Motion PT Goal 1 Goal / Goal Update 1. Achieve terminal knee extension of right knee 2. Improve aileen piriformis to minimal restriction 3. Improve aileen hip abduction to 40 degrees to reduce pelvic hip restriction Target Visit 8 PT Problem 3 PT Problem #3 Impaired Strength PT Goal 1 Goal / Goal Update 1. Improve aileen knee strength to 5/5 to improve stability with ADLs 2. Improve aileen hip abduction strength to 4+/5 to improve lateral stability during gait and ADLs Target Visit 8
--- NOTE | 2024-06-08 17:05 | PTOPEVAL1 ---
Assessment and note entered by Fantasma Hines, PT Evaluation Information Assessment Status Evaluation Diagnosis Primary OA of bilateral knees ICD-10 Condition Codes (PT) Pain in right knee M25.561,Pain in left knee M25. 562 Onset Chronic Subjective Information Patient reports that she is having pain in the knees equally. She has noted increased pain with activity. History of torn meniscus on the left knee and arthroscopy on the right knee. She is able to get pain relief at night with knee propping. She is taking hydrocodone for pain. Also takes Tylenol. Feels she can move as far as she needs but she gets increased pain. She has to take the elevator at work because she cannot handle stairs. Reported Pain Level Pain Score 2: Self Report Assessment PT Clinical Summary Patient presents with signs and symptoms consistent with bilateral knee osteoarthritis. Genu valgus deformity noted. She has weakness and mobility deficits in hips as well as ankles and will benefit from skilled therapy to maximize these potentials for terminal operator strength and stabilization. Plan of Care Interventions Check Out for Orthotic/Prosthetic,Gait Training, Manual Therapy,Neuro Re-education,Therapeutic Activities,Therapeutic Exercise PT Services Indicated Yes Treatment Frequency and 2x/week for 8 visits Duration These treatments will address the objective and functional deficits as defined above. The patient will be advanced safely and appropriately in order for the patient to progress towards his/her prior level of function. Additional exercises will be introduced and as well as a comprehensive home exercise program upon discharge, if needed, ?to ensure carryover of functional gains achieved in the clinic. This treatment plan has been reviewed and agreement upon by the patient.
--- NOTE | 2024-06-23 14:21 | PCPTNOTE ---
Pt. did not show for her Physical Therapy appointment this date. Called and spoke to the patient and she didn't realize she had an appointment. Pt. reports she will be in on Wednesday.
--- NOTE | 2024-07-13 16:09 | PTOPDC ---
Assessment and note entered by Fantasma Hines, PT Evaluation Information Assessment Status Discharge Diagnosis Primary OA of bilateral knees ICD-10 Condition Codes (PT) Pain in right knee M25.561,Pain in left knee M25. 562 Onset Chronic Subjective Information Patient reports that overall she is doing better. She has noted improved walking ability and less pain with ambulation. Feels that given the structural nature of her knees she would be ready for surgical option should it be offered. Reported Pain Level Pain Score 2: Self Report Assessment PT Clinical Summary Patient has made very good objective and subjective progress at this time. Given the objective nature of her structural knee pain, I believe that we are likely at the pinnacle of conservative management of symptoms at this time. Patient in agreement and plans to continue exercise as part of HEP. Plan of Care PT Services Indicated Yes
== END 2024-07-13 17:32 | disposition home or self-care (01) ==
LOC: ANHPT 14:30
PROVIDERS: Visit Provider Orthopaedic Surgery
DX: M17.12 Unilateral primary osteoarthritis, left knee (principal); M17.11 Unilateral primary osteoarthritis, right knee; M23.312 Other meniscus derangements, anterior horn of medial meniscus, left knee
CPT/HCPCS: 97110; 97140; 97161; 97530

== ENCOUNTER 2024-11-28 21:58 | Inpatient (IN) | payer MEDICARE, SELFPAY ==
--- OUTSIDE RECORDS SUMMARY | 2023-03-05 04:22 | XMS_ITS | Continuity of Care Document ---
Author Organization [facility] Address [address] [facility] [address] [place] [address] Phone Care Team Providers Care Medical Claims Specialist Name Role Phone Woodrow Mendoza MD Unavailable [...] Providers Copied on Encounter [facility], [address] [facility] [address] [address], [place], [address], [place] tel:[phone] [facility] No Information 3 Kelly Troy. [address], [place], [place], [address]. tel:[phone] [facility], [address], [place], [address], [place] tel:[phone] [facility] S/P left knee arthroscopyPri dana osteoarthritis of right knee 3 Kelly Troy. [address], [place], [place], [address]. tel:[phone] Referring Provider: Xochitl Duarte, [address], [place], [address] . tel:[phone] [facility], [address], [place], [address], [place] tel:[phone] [facility] No Information 3 Kelly Troy. [address], [place], [place], [address]. tel:[phone] [facility], [address], [place], [address], [place] tel:[phone] [facility] Tear of medial meniscus of left knee, current, unspecified tear type, subsequent encounterPrima ry osteoarthritis of left knee Jan- 3 Kelly Troy. [address], [place], [place], [address]. tel:[phone] OFFICE/OUTPA TIENT VISIT EST [facility], [address], [place], [address], [place] tel:[phone] [facility] Tear of medial meniscus of left knee, current, unspecified tear type, subsequent encounterPrima ry osteoarthritis of right knee Jan- 3 Kelly Troy. [address], [place], [place], [address]. tel:[phone] Referring Provider: [address], [place], [address] . tel:[phone] [facility], [address], [place], [address], [place] tel:[phone] [facility] Primary osteoarthritis of left kneePatellofem oral arthritis of right knee Sep-1 3 Colin Franny. [address], [place], [place], [address]. tel:[phone] Referring Provider: [address], [place], [address] . tel:[phone] [facility], [address], [place], [address], [place] tel:[phone] [facility] Primary osteoarthritis of left kneePatellofem oral arthritis of right knee Sep-0 6- 3 Colin Franny. [address], [place], [place], [address]. tel:[phone] Referring Provider: [address], [place], [address] . tel:[phone] [facility], [address] [address], [place], [address], [place] tel:[phone] [facility] Right knee pain, unspecified chronicityPate llofemoral arthritis of right kneeTear of medial meniscus of left knee, initial encounterPrima ry osteoarthritis of left knee 3 Cristi Franny. [address], [place], [place], [address]. tel:[phone] Referring Provider: Xochitl Duarte, [address], [place], [address] . tel:[phone] [facility], [address] [facility] [address], [place], [address], [place] tel:[phone] [facility] Unspecified internal derangement of left knee 3 No Information Referring Provider: Woodrow Mendoza, [address], [place], [address] . tel:[phone] OFFICE/OUTPA TIENT VISIT NEW [facility], [address] [facility] [address], [place], [address], [place] tel:[phone] [facility] Internal derangement of left kneeLeft knee pain, unspecified chronicity 3 Kelly Troy. [address], [place], [place], [address]. tel:[phone] Referring Provider: Xochitl Duarte, [address], [place], [address] . tel:[phone] Family History Family Member Type Diagnosis Age At Onset Mother Problem Alive and well Father Problem (finding) Payers Payer name Insurance type Covered republican ID Authoriza tion(s) Medicare E2 OT [id number] HLK [place] [id number] or after OT [id number] Social History Type Description Quantity Date Captured [...]
--- OUTSIDE RECORDS SUMMARY | 2023-03-05 04:22 | XMS_ITS | Continuity of Care Document ---
Author Organization [facility] Address [address] [facility] [address] [place] [address] Phone Care Team Providers Care Natural Resource Specialist Name Role Phone Woodrow Mendoza MD [...] Providers Copied on Encounter [facility], [address] [facility] [address] [address], [place], [address], [place] tel:[phone] [facility] No Information 3 Kelly Troy. [address], [place], [place], [address]. tel:[phone] [facility], [address], [place], [address], [place] tel:[phone] [facility] S/P left knee arthroscopyPri dana osteoarthritis of right knee 3 Kelly Troy. [address], [place], [place], [address]. tel:[phone] Referring Provider: Xochitl Duarte, [address], [place], [address] . tel:[phone] [facility], [address], [place], [address], [place] tel:[phone] [facility] No Information 3 Kelly Troy. [address], [place], [place], [address]. tel:[phone] [facility], [address], [place], [address], [place] tel:[phone] [facility] Tear of medial meniscus of left knee, current, unspecified tear type, subsequent encounterPrima ry osteoarthritis of left knee Jan- 3 Kelly Troy. [address], [place], [place], [address]. tel:[phone] OFFICE/OUTPA TIENT VISIT EST [facility], [address], [place], [address], [place] tel:[phone] [facility] Tear of medial meniscus of left knee, current, unspecified tear type, subsequent encounterPrima ry osteoarthritis of right knee Jan- 3 Kelly Troy. [address], [place], [place], [address]. tel:[phone] Referring Provider: [address], [place], [address] . tel:[phone] [facility], [address], [place], [address], [place] tel:[phone] [facility] Primary osteoarthritis of left kneePatellofem oral arthritis of right knee Sep-1 3 Colin Franny. [address], [place], [place], [address]. tel:[phone] Referring Provider: [address], [place], [address] . tel:[phone] [facility], [address], [place], [address], [place] tel:[phone] [facility] Primary osteoarthritis of left kneePatellofem oral arthritis of right knee Sep-0 6- 3 Colin Franny. [address], [place], [place], [address]. tel:[phone] Referring Provider: [address], [place], [address] . tel:[phone] [facility], [address] [address], [place], [address], [place] tel:[phone] [facility] Right knee pain, unspecified chronicityPate llofemoral arthritis of right kneeTear of medial meniscus of left knee, initial encounterPrima ry osteoarthritis of left knee 3 Cristi Franny. [address] [facility] [address], [place], [place], [address]. tel:[phone] Referring Provider: Xochitl Duarte, [address], [place], [address] . tel:[phone] [facility], [address] [facility] [address], [place], [address], [place] tel:[phone] [facility] Unspecified internal derangement of left knee 3 No Information Referring Provider: Woodrow Mendoza, [address] [facility] [address], [place], [address] . tel:[phone] OFFICE/OUTPA TIENT VISIT NEW [facility], [address] [facility] [address], [place], [address], [place] tel:[phone] [facility] Internal derangement of left kneeLeft knee pain, unspecified chronicity 3 Kelly Troy. [address] [facility] [address], [place], [place], [address]. tel:[phone] Referring Provider: Xochitl Duarte, [address], [place], [address] . tel:[phone] Family History Family Member Type Diagnosis Age At Onset Mother Problem Alive and well Father Problem (finding) Payers Payer name Insurance type Covered green party ID Authoriza tion(s) Medicare E2 OT [id number] HLK [place] of [place] [id number] or after OT [id number] Social History Type Description Quantity Date Captured [...]
--- OUTSIDE RECORDS SUMMARY | 2023-03-05 04:22 | XMS_ITS | Continuity of Care Document ---
Author Organization [facility] Address [address] [facility] [address] [place] [address] Phone Care Team Providers Care Flooring Machine Feeder Name Role Phone Woodrow Mendoza MD Unavailable [...] Providers Copied on Encounter [facility], [address] [facility] [address], [place], [address], [place] tel:[phone] [facility] No Information 3 Kelly Troy. [address], [place], [place], [address]. tel:[phone] [facility], [address], [place], [address], [place] tel:[phone] [facility] S/P left knee arthroscopyPri dana osteoarthritis of right knee 3 Kelly Troy. [address], [place], [place], [address]. tel:[phone] Referring Provider: Xochitl Duarte, [address], [place], [address] . tel:[phone] [facility], [address], [place], [address], [place] tel:[phone] [facility] No Information 3 Kelly Troy. [address], [place], [place], [address]. tel:[phone] [facility], [address], [place], [address], [place] tel:[phone] [facility] Tear of medial meniscus of left knee, current, unspecified tear type, subsequent encounterPrima ry osteoarthritis of left knee Jan- 3 Kelly Troy. [address], [place], [place], [address]. tel:[phone] OFFICE/OUTPA TIENT VISIT EST [facility], [address], [place], [address], [place] tel:[phone] [facility] Tear of medial meniscus of left knee, current, unspecified tear type, subsequent encounterPrima ry osteoarthritis of right knee Jan- 3 Kelly Troy. [address], [place], [place], [address]. tel:[phone] Referring Provider: [address], [place], [address] . tel:[phone] [facility], [address], [place], [address], [place] tel:[phone] [facility] Primary osteoarthritis of left kneePatellofem oral arthritis of right knee Sep-1 3 Colin Franny. [address], [place], [place], [address]. tel:[phone] Referring Provider: [address], [place], [address] . tel:[phone] [facility], [address], [place], [address], [place] tel:[phone] [facility] Primary osteoarthritis of left kneePatellofem oral arthritis of right knee Sep-0 6- 3 Colin Franny. [address], [place], [place], [address]. tel:[phone] Referring Provider: [address], [place], [address] . tel:[phone] [facility], [address] [address], [place], [address], [place] tel:[phone] [facility] Right knee pain, unspecified chronicityPate llofemoral arthritis of right kneeTear of medial meniscus of left knee, initial encounterPrima ry osteoarthritis of left knee 3 Cristi Franny. [address], [place], [place], [address]. tel:[phone] Referring Provider: Xochitl Duarte, [address], [place], [address] . tel:[phone] [facility], [address] [facility] [address], [place], [address], [place] tel:[phone] [facility] Unspecified internal derangement of left knee 3 No Information Referring Provider: Woodrow Mendoza, [address], [place], [address] . tel:[phone] OFFICE/OUTPA TIENT VISIT NEW [facility], [address] [facility] [address], [place], [address], [place] tel:[phone] [facility] Internal derangement of left kneeLeft knee pain, unspecified chronicity 3 Kelly Troy. [address], [place], [place], [address]. tel:[phone] Referring Provider: Xochitl Duarte, [address], [place], [address] . tel:[phone] Family History Family Member Type Diagnosis Age At Onset Mother Problem Alive and well Father Problem (finding) Payers Payer name Insurance type Covered democrat ID Authoriza tion(s) Medicare E2 OT [id number] HLK [place] [id number] or after OT [id number] Social History Type Description Quantity Date Captured [...]
--- NOTE | ~2024-11-28 | US_ITS ---
US abdomen limited INDICATION: Transaminitis PROCEDURE: Realtime right upper abdominal ultrasound. COMPARISON: No prior studies for comparison. FINDINGS: The pancreas is normal without focal mass or pancreatic ductal dilation. Liver echotexture is normal without focal mass or intrahepatic biliary dilatation. There is normal directional flow in the portal vein. The gallbladder is normal without stones, gallbladder wall thickening or pericholecystic fluid. Common bile duct measures 6.8 mm. No sonographic Dudley's sign. Incidental note is made of an 11 mm right renal cysts. IMPRESSION: 1: Unremarkable limited abdominal ultrasound. Reviewed, dictated and finalized at location O.
--- NOTE | ~2024-11-28 | CT_ITS ---
EXAMINATION: CTA chest PE protocol DATE: 11/29/2024 7:11 CDT INDICATION: Shortness of breath and hypoxia TECHNIQUE: Computed tomographic angiography (CTA) of the chest was performed with 100 mL Omnipaque-350 intravenous contrast. The dose-length product was 197.28 mGy-cm. Maximum intensity projection 3D-reconstructions of the aorta and other arteries were constructed by the technologist on a separate workstation. COMPARISON: CT dated 05/19/2024. FINDINGS: There is extensive masslike consolidation right upper lobe with surrounding pneumonia. There is atherosclerosis of the aorta without evidence for aneurysm or dissection. Small pericardial effusion. Study is technically adequate without evidence for pulmonary embolism. Trace right pleural effusion. Mild thoracic spondylosis with accentuated kyphosis. IMPRESSION: 1. Extensive masslike consolidation right upper lobe with surrounding airspace consolidation, consistent with pneumonia. Recommend follow-up CT in 2-3 months following appropriate therapy to exclude underlying mass. 2: Small pericardial effusion. Trace right pleural effusion. Reviewed, dictated and finalized at location O.
--- NOTE | ~2024-11-28 | XR_ITS ---
EXAMINATION: XR chest 1V portable DATE: 12/04/2024 08:45 INDICATION: Right upper lobe pneumonia TECHNIQUE: frontal view of the chest was obtained. COMPARISON: Chest radiograph dated 12/01/2024 FINDINGS: No significant change in a large masslike region of consolidation with surrounding reticulonodular opacities in the right upper lobe which is new since CT dated 05/19/2024 favoring pneumonia. Small right pleural effusion with blunting at the costophrenic and cardiophrenic angles. Left lung is clear. No pulmonary edema, pneumothorax or left-sided pleural effusion. The cardiomediastinal silhouette is normal. IMPRESSION: 1. Unchanged masslike region of consolidation in the right upper lobe consistent with pneumonia. Recommend radiographic follow-up to resolution. 2. Small right pleural effusion. Reviewed, dictated and finalized at location A. IMPRESSION: 1. Unchanged masslike region of consolidation in the right upper lobe consisten t with pneumonia. Recommend radiographic follow-up to resolution. 2. Small right pleural effusion.
--- NOTE | ~2024-11-28 | XR_ITS ---
XR chest 1V portable 12/01/2024 06:04 Indication: Pneumonia Procedure: AP portable chest Comparison: Comparison to multiple prior studies sequentially, with oldest reviewed study dated 04/17/2024. Findings: Right upper lobe airspace consolidation with masslike density. Heart size normal. Left lung clear. No pleural effusion. No pneumothorax. Impression: 1: Right upper lobe airspace consolidation, compatible with pneumonia. Superimposed masslike density present. Cannot exclude underlying malignancy. Reviewed, dictated and finalized at location O. Impression: 1: Right upper lobe airspace consolidation, compatible with pneumonia. Superimp osed masslike density present. Cannot exclude underlying malignancy.
--- NOTE | ~2024-11-28 | XR_ITS ---
XR chest 2V 11/28/2024 22:28 Indication: Chest pain Procedure: 2 view chest Comparison: 04/17/2024 Findings: There is a masslike density in the right upper lobe. There is extensive consolidation of the right upper lobe. Heart size normal. Left lung clear. No pleural effusion or pneumothorax. Impression: 1: Masslike density right upper lobe, suspicious for malignancy. Correlation with CT chest recommended. 2: Right upper lobe airspace disease, compatible with pneumonia. Reviewed, dictated and finalized at location O. Impression: 1: Masslike density right upper lobe, suspicious for malignancy. Correlation wi th CT chest recommended. 2: Right upper lobe airspace disease, compatible with pneumonia.
--- OUTSIDE RECORDS SUMMARY | 2024-11-28 08:15 | XMS_ITS | Continuity of Care Document ---
Author Organization [employer] Address [address] [place] [address] Phone Care Team Providers Care [address] Vendor Name Role Phone Yue Bone Unavailable Unavailable Allergies, Adverse Reactions, Alerts Substance Reaction Status Criticality meloxicam Bleeding Active No Information indomethacin Nausea Active No Information Medications Medication Instructions Dosage Effective Dates (start - stop) Status Comments gabapentin 100 mg capsule take 1 Capsule by oral route 2 times every day 100 MG - Active hydrocodone 5 mg-acetaminophen 325 mg tablet take 1 tablet by oral route every 8 hours as needed for pain 1 tablet - Active hydrocortisone acetate 30 mg rectal suppository insert 1 suppository by rectal route 2 times every day as needed 30 MG - Active Xanax 0.5 mg tablet TAKE ONE TABLET BY MOUTH TWICE DAILY NEEDED. - Active permethrin 5 % topical cream apply by topical route (thoroughly massage into skin from head to soles of feet) once leave on for 8-14 hr, then remove by thorough washing 0.00 - Active ESTRADIOL 0.01% CREAM INSERT 1 GRAM VAGINALLY 2 TIMES EVERY WEEK - Active Lotrimin AF (clotrimazole) 1 % [...] times every day as needed - Active pantoprazole 40 mg tablet,delayed release take 1 tablet by oral route every day 40 MG - Active Zithromax Z-Hector 250 mg tablet take 2 tablet by oral route every day for 1 day then 1 tablet (250 mg) by oral route once daily for 4 days 500 MG - No Longer Active LISINOPRIL 20 MG TABLET TAKE 1 TABLET BY MOUTH TWICE A DAY - No Longer Active Medrol (Hector) 4 mg tablets in a dose pack take by Oral route take as directed Not Available - No Longer Active amlodipine 5 mg tablet take 1 tablet by oral route every day 5 MG - No Longer Active increased 8-624 aspirin 81 mg tablet,delayed release take 1 tablet by oral route every day 81 MG - No Longer Active Procedures Procedure Date MED LIST DOCD IN [facility] CBC, INC PLATELETS AND DIFFERENTIAL COMPREHEN METABOLIC PANEL CMP URINALYSIS W MICROSCOPIC (UA) ROUTINE VENIPUNCTURE INTRAVENOUS INFUSION, HYDRATION; INITIAL , 31 MINUT NSALINE 1000CC OFFICE [id number] BODY MASS INDEX DOCD SYST BP LT 130 MM HG DIAST BP < 80 MM HG MED LIST DOCD IN [facility] FALL RISK ASSESSMENT DOC'D PRES/ABSN URINE INCON ASSESS BASIC METABOLIC PANEL(BMP) CBC, INC PLATELETS AND DIFFERENTIAL LIPID PANEL ROUTINE VENIPUNCTURE OFFICE DPAHW-DIQ-LALHLLMY PPPS, subseq visit BODY MASS INDEX DOCD SYST BP LT 130 MM HG DIAST BP 80-89 MM HG MED LIST DOCD IN RD URINALYSIS W MICROSCOPIC (UA) ROUTINE VENIPUNCTURE OFFICE [id number]-UCB-[id number] BODY MASS INDEX DOCD SYST BP GE 130 - 139MM HG DIAST BP 80-89 MM HG Removal Impacted Cerumen Irrigation/Lava ge, Unilateral MED LIST DOCD IN RD CBC, INC PLATELETS AND DIFFERENTIAL COMPREHEN METABOLIC PANEL [facility] ROUTINE VENIPUNCTURE OFFICE [id number]-CRH-[id number] BODY MASS INDEX DOCD SYST BP LT 130 MM HG DIAST BP < 80 MM HG BASIC METABOLIC PANEL(BMP) CBC, INC PLATELETS AND DIFFERENTIAL ROUTINE VENIPUNCTURE OFFICE CGEHN-PSZ-IOLJOOVW BODY MASS INDEX DOCD SYST BP LT 130 MM HG DIAST BP < 80 MM HG Chest Xray, 2 Views OFFICE FWNSQ-GBR-EKEAEJGP BODY MASS INDEX DOCD SYST BP LT 130 MM HG DIAST BP < 80 MM HG CBC, INC PLATELETS AND DIFFERENTIAL COMPREHEN METABOLIC PANEL CMP LIPID PANEL VITAMIN D, 25-HYDROXY ROUTINE VENIPUNCTURE OFFICE PRSFD-BVC-CPDWYGBB BODY MASS INDEX DOCD SYST BP LT 130 MM HG DIAST BP < 80 MM HG REMOVAL IMPACTED CERUMEN REQUIRING INSTR UMENTATION Covid Vaccine Admin, Single Dose 2023 Pfizer Comirnatjudd tri-sucrose COVID Vacci ne 30 mcg/ OFFICE PBMPQ-XQO-CJJMPQAA BODY MASS INDEX DOCD SYST BP >= 140 MM HG6 IT DIAST BP >= 90 MM HG EKG (ELECTROCARDIOGRAM) OFFICE CGJTD-LRU-YCPLEFKI BODY MASS INDEX DOCD SYST BP >= 140 MM HG6 IT DIAST BP >= 90 MM HG BASIC METABOLIC PANEL(BMP) CBC, INC PLATELETS AND DIFFERENTIAL SARS-CoV-2/Flu/RSV (all targets) 2023 THYROID STIMULATION HORMONE(TSH) 2023 URINALYSIS W MICROSCOPIC (UA) ROUTINE VENIPUNCTURE OFFICE OPHUI-WOW-MOBUTKFU BODY MASS INDEX DOCD SYST BP LT 130 MM HG DIAST BP 80-89 MM HG OFFICE MSOXH-QYR-RILAYYLF PPPS, subseq visit BODY MASS INDEX DOCD SYST BP LT 130 MM HG DIAST BP 80-89 MM HG URINALYSIS, REFLEX (UA) NSALINE 1000CC INTRAVENOUS INFUSION, HYDRATION; INITIAL , 31 MINUT INTRAVENOUS INFUSION, HYDRATION; EACH AD DITIONAL H OFFICE RYWGT-FSC-DUIBVNDY SYST BP LT 130 MM HG DIAST BP < 80 MM HG FALL RISK ASSESSMENT DOC'D PRES/ABSN URINE INCON ASSESS Clin depression screen doc CBC, INC PLATELETS AND DIFFERENTIAL COMPREHEN METABOLIC PANEL CMP FERRITIN LEVEL ROUTINE VENIPUNCTURE NSALINE 1000CC INTRAVENOUS INFUSION, HYDRATION; INITIAL , 31 MINUT OFFICE AHEQA-YLO-YVVIAJJA SYST BP LT 130 MM HG DIAST BP < 80 MM HG CBC, INC PLATELETS AND DIFFERENTIAL FERRITIN LEVEL ROUTINE VENIPUNCTURE OFFICE HLGUX-AFF-[id number] SYST BP >= 140 MM HG6 IT DIAST BP 80-89 MM HG BASIC METABOLIC PANEL(BMP) CBC, INC PLATELETS AND DIFFERENTIAL ROUTINE VENIPUNCTURE Transitional Care- First 7 Days Of Disch arge SYST BP >= 140 MM HG6 IT DIAST BP < 80 MM HG DSCHRG MED/CURRENT MED MERGE BASIC METABOLIC PANEL(BMP) CBC, INC PLATELETS AND DIFFERENTIAL FERRITIN LEVEL VITAMIN D, 25-HYDROXY ROUTINE VENIPUNCTURE OFFICE CSSIW-VJK-HIWMMTLN SYST BP LT 130 MM HG DIAST BP < 80 MM HG EKG (ELECTROCARDIOGRAM) PULSE OXIMETRY, MULTIPLE Admin influenza virus vac FLU VACC PRSV FREE INC ANTIG OFFICE ICOXL-PXQ-[id number] SYST BP LT 130 MM HG DIAST BP >= 90 MM HG Chest Xray, 2 Views OFFICE OKFWY-HYM-NWXWDAIH SYST BP GE 130 - 139MM HG DIAST BP < 80 MM HG OFFICE ZRUTQ-LEX-DTFLOPBX SYST BP >= 140 MM HG6 IT [...] MEDICARE Pneumococcal Conjugate Vaccine (PCV20) J OFFICE BMYKZ-HIJ-IDISOBSB SYST BP LT 130 MM HG DIAST BP < 80 MM HG INIT PREVENT PHYS EXAM; LIMITED TO NEW B ENEFICIARY BASIC METABOLIC PANEL(BMP) CBC, INC PLATELETS AND DIFFERENTIAL ROUTINE VENIPUNCTURE INTRAVENOUS INFUSION, HYDRATION; INITIAL , 31 MINUT NSALINE 1000CC OFFICE ADUQL-XYW-VJKCBOWV SYST BP LT 130 MM HG DIAST BP < 80 MM HG DXA BONE DENSITY, AXIAL SCREENING MAMMOGRAM (CAD) Screening Digital Breast Tomosynthesis M OFFICE MVSZA-LZV-RPAVKGIP BASIC METABOLIC PANEL(BMP) ROUTINE VENIPUNCTURE X-RAY EXAM OF LUMBAR SPINE, A/P & LAT De KENALOG 10 MG KENALOG 10 MG ASP/INJ MAJOR JOINTOR BURSA, SHOULDER, H IP,KNEE W/O US GUIDANCE OFFICE XJFDM-VBW-QGYQJCYG IMMUN ADMIN (INC PERCUTANEOUS) SINGLE, F IRST INJ FLU VAC NO PRSV 4 IVA, 0.5mL DOSAGE OFFICE DTYBC-LFW-KHMQOWCM DUPLEX SCAN OF ABD, PELV, SCROT, COMPLET E ULTRASOUND RETROPERITONEAL ( AORTA, RENAL, NODES) REAL TIME W/ DOCUMENTATION, CO DUPLEX SCAN LOWER EXTREMITY EXTREMITY STUDY/BILATERAL (VENECIA) 022 OFFICE MLADI-RAU-GKPIGYRD BASIC METABOLIC PANEL(BMP) ROUTINE VENIPUNCTURE OFFICE GFRRQ-IKE-GSMPKTVG BASIC METABOLIC PANEL(BMP) ROUTINE VENIPUNCTURE BP OFFICE/OUTPATIENT VISIT EST OFFICE UYZLK-YBP-FCSVNMEZ CBC, INC PLATELETS AND DIFFERENTIAL COMPREHEN METABOLIC PANEL CMP ROUTINE VENIPUNCTURE INTRAVENOUS INFUSION, HYDRATION; INITIAL , 31 MINUT NSALINE 1000CC BASIC METABOLIC PANEL(BMP) ROUTINE VENIPUNCTURE OFFICE WYVLO-YFV-NSPDERUB KENALOG 10 MG KENALOG 10 MG ASP/INJ MAJOR JOINTOR BURSA, SHOULDER, H IP,KNEE W/O US GUIDANCE X-RAY EXAM OF KNEES OFFICE GTBGO-VIZ-FGZEDDFI BASIC METABOLIC PANEL(BMP) ROUTINE VENIPUNCTURE OFFICE WCVBK-KKQ-SHMJJLZN BASIC METABOLIC PANEL(BMP) ROUTINE VENIPUNCTURE IMMUN ADMIN (INC PERCUTANEOUS) SINGLE, F IRST INJ FLU VACC PRSV FREE INC ANTIG OFFICE MXWHQ-LKP-MXJQVLUR BASIC METABOLIC PANEL(BMP) ROUTINE VENIPUNCTURE OFFICE KCSOI-RLI-OVQDDIHE OFFICE XKPVI-VMQ-CTWDVTMC OFFICE PTOTD-ZQE-XSAMJXIU BASIC METABOLIC PANEL(BMP) PARATHYROID HORMONE (PTH) URIC ACID, (S) VITAMIN D, 25-HYDROXY ROUTINE VENIPUNCTURE OFFICE KCFRE-IYS-JMHVFDXH IMMUN ADMIN (INC PERCUTANEOUS) SINGLE, F IRST [...] DISCUSSION BASIC METABOLIC PANEL(BMP) ROUTINE VENIPUNCTURE OFFICE XKTXK-QCG-BQLGCLUU CT ABD&PELV 1+ SECTION/REGNS LOW OSMOLAR CONTRAST (300 TO 399 MG IODI NE) TISSUE EXAM BY PATHOLOGIST SCREENING COLONOSCOPY (NOT HIGH RISK) Ja UPPER GI ENDOSCOPY BIOPSY CBC, INC PLATELETS AND DIFFERENTIAL COMPREHEN METABOLIC PANEL [facility] 9 URINALYSIS, REFLEX (UA) ROUTINE VENIPUNCTURE OFFICE XCSXB-KCR-RBTPXQWF FERRITIN LEVEL COMPREHEN METABOLIC PANEL [facility] 9 ROUTINE VENIPUNCTURE OFFICE GYZNB-ZWD-DFGLHVTO X-RAY EXAM OF FOOT OFFICE PLDYX-XOF-SLZZSENJ Advance Directives Directive Yes / No Effective [...] Diagnoses Date Provider Providers Copied on Encounter OFFICE GMWCU-XAD-GUG RENETTA Dayak, [address], [place], [place], [address] , tel: [phone] [facility] acute visit (chief complaint) Other fatigueCOVID-19Sy mptomatic hypotensionBleedi ng hemorrhoids 5 Chadwick Turner. [address], [place], [place], [address], [place]. [phone] Referring Provider: Xochitl Perze, [address], [place], [address] . tel:[phone] [facility], [address], [place], [place], [address] , tel: [phone] [facility] No Information 5 Felicia Leung. [address], [place], [place], [address], [place]. [phone] [facility] [employer], [address], [place], [place], [address] , tel:[phone] [facility] No Information 5 Felicia Leung. [address], [place], [place], [address], [place]. [phone] OFFICE QSFTH-LFD-PPU [facility] [employer], [address], [place], [place], [address] , tel:[phone] [facility] Chronic Conditions (chief complaint) Hypertensive chronic kidney disease with stage 1 through stage 4 chronic kidney disease, or unspecified chronic kidney diseaseStage 3a chronic kidney diseaseBilateral primary osteoarthritis of kneeOther emphysemaAtherosc lerosis of aortaIron deficiency anemia, unspecified iron deficiency anemia typeThoracic aortic aneurysm, without rupture, unspecifiedGenera lized osteoarthritisMed icare annual wellness visit, subsequentUrinary frequency 5 Felicia Leung. [address], [place], [place], [address], [place]. tel:[phone] Referring Provider: Xochitl Perez, [address], [place], [address] . tel:[phone] [facility], [address], [place], [place], [address] , tel: [phone] [facility] No Information 5 Felicia Leung. [address], [place], [place], [address], [place]. tel:[phone] [facility], [address], [place], [place], [address] , tel: [phone] [facility] IM Encounter for screening for malignant neoplasm of colon 5 Felicia Leung. [address], [place], [place], [address], [place]. tel:[phone] OFFICE YKXFD-UDF-LXG [facility], [address], [place], [place], [address] , tel: [phone] [facility] IM acute visit (chief complaint)C hronic Conditions (chief complaint) Bleeding hemorrhoidsAcute UTI (urinary tract infection)Impacte d cerumen of right earEncounter for screening for malignant neoplasm of colonHypertensive chronic kidney disease with stage 1 through stage 4 chronic kidney disease, or unspecified chronic kidney diseaseStage 3a chronic kidney diseaseEncounter for screening for malignant neoplasm of colon 5 Chadwick Turner. [address], [place], [place], [address], . tel:[phone] Referring Provider: Xochitl Perez, [address], [place], [address] . tel:[phone] [facility], [address], [place], [place], [address] , tel: [phone] [facility] No Information 5 Felicia Leung. [address], [place], [place], [address], [place]. tel:[phone] OFFICE UKORK-JKV-OSG [facility], [address], [place], [place], [address] , tel: [phone] [facility] acute visit (chief complaint)C hronic Conditions (chief complaint) LLQ abdominal painChange in stoolRectal fissureCoughing up bloodHypertensive chronic kidney disease with stage 1 through stage 4 chronic kidney disease, or unspecified chronic kidney diseaseStage 3a chronic kidney diseaseRight lower lobe lung massBilateral primary osteoarthritis of knee Jul- 5 Chadwick Turner. [address], [place], [place], [address], . tel:[phone] Referring Provider: Xochitl Perez, [address], [place], [address] . tel:[phone] [facility], [address], [place], [place], [address] , tel: [phone] [facility] No Information 5 Kodak Cannon. [address], [address], [place], [place], [facility], . tel:[phone] [facility], [address], [place], [place], [address] , tel: [phone] [facility] Other emphysema 5 Cizek Xochitl. [facility], [place], [place], [address], [place]. tel:[phone] [facility], [address], [place], [place], [address] , tel: [phone] [facility] No Information 5 Cizek Xochitl. [facility], [place], [place], [address], [place]. tel:[phone] [facility], [address], [place], [place], [address] , tel: [phone] [facility] No Information 5 Cizek Xochitl. [address], [place], [place], [address], . tel:[phone] OFFICE RRFCZ-ICX-UMP RENETTA [facility], [address], [place], [place], [address] , [place] tel:[phone] [facility] Chronic Conditions (chief complaint) Other emphysemaHyperten sive chronic kidney disease with stage 1 through stage 4 chronic kidney disease, or unspecified chronic kidney diseaseStage 3a chronic kidney diseaseIron deficiency anemia, unspecified iron deficiency anemia typeAcute pneumoniaRight lower lobe lung massAtheroscleros is of aortaThoracic aortic aneurysm, without rupture, unspecifiedBilate ral primary osteoarthritis of knee 5 Felicia Leung. [address], [place], [place], [address], [place]. tel:[phone] Referring Provider: Xochitl Perez, [address], [place], [address] . tel:[phone] OFFICE NXEUV-JCL-LGB [facility], [address], [place], [place], [address] , [place] tel:[phone] [facility] IM acute visit (chief complaint)C hronic Conditions (chief complaint) Acute pneumoniaEssentia l (primary) hypertensionOther emphysema 5 Genao Yue. [address], [place], [place], [address], [place]. tel:[phone] Referring Provider: Xochitl Perez, [address], [place], [address] . tel:[phone] OFFICE KWUET-WSA-ISN [facility], [address], [place], [place], [address] , [place] tel:[phone] [facility] Chronic Conditions (chief complaint) Stage 3a chronic kidney diseaseHypertensi ve chronic kidney disease with stage 1 through stage 4 chronic kidney disease, or unspecified chronic kidney diseaseAtheroscle rosis of aortaOther emphysemaIron deficiency anemia, unspecified iron deficiency anemia typeActinic keratosisImpacted cerumen of both earsVaginal drynessScreening mammogram for breast cancer 4 [employer] Cannon. [address], [address], [place], [address], . tel:[phone] Referring Provider: Xochitl Perez, [address], [place], [address] . tel:[phone] [facility], [address], [place], [place], [address] , tel: [phone] [facility] No Information 4 Felicia Leung. [address], [place], [place], [address], . tel:[phone] [facility], [address], [place], [place], [address] , tel: [phone] [facility] No Information 4 Felicia Leung. [address], [place], [place], [address], [place]. tel:[phone] OFFICE EGQBB-DAQ-AKG [facility], [address], [place], [place], [address] , tel: [phone] [facility] Chronic Conditions (chief complaint) Hypertensive chronic kidney disease with stage 1 through stage 4 chronic kidney disease, or unspecified chronic kidney diseaseStage 3a chronic kidney diseaseFolliculit isNasal sore 0 4 Kodak Cannon. [address] [place] [address], [address], [facility], . tel:[phone] Referring Provider: Xochitl Perez, [address], [place], [address] . tel:[phone] OFFICE BLCIP-SRZ-YOU [facility], [address], [place], [place], [address] , tel: [phone] [facility] Hypertensive chronic kidney disease with stage 1 through stage 4 chronic kidney disease, or unspecified chronic kidney diseaseStage 3a chronic kidney disease 4 [employer]ak Cannon. [address] [place] [address], [address], [facility], . tel:[phone] Referring Provider: Xochitl Perez, [address], [place], [address] . tel:[phone] OFFICE RICSQ-RDJ-PNA [facility], [address], [place], [place], [address] , tel:[phone] [facility] Chronic Conditions (chief complaint) Hypertensive chronic kidney disease with stage 1 through stage 4 chronic kidney disease, or unspecified chronic kidney diseaseStage 3a chronic kidney diseaseAcute cystitis without hematuriaFatigue, unspecified typeSymptoms of upper respiratory infection (URI)Intermittent constipation 4 [employer]ak Cannon. [address], [address], [place], [place], [facility], . tel:[phone] Referring Provider: Xochitl Perez, [address], [place], [address] . tel:[phone] OFFICE SUNGQ-XVB-QIG [facility], [address], [place], [place], [address] , tel:[phone] [facility] Medicare preventive (chief complaint)M edicare preventive (chief complaint)C hronic Conditions (chief complaint) Hypertensive chronic kidney disease with stage 1 through stage 4 chronic kidney disease, or unspecified chronic kidney diseaseStage 3a chronic kidney diseaseMedicare annual wellness visit, subsequentAtheros clerosis of aortaThoracic aortic aneurysm, without rupture, unspecifiedOsteop enia of multiple sitesAcute cystitis without hematuria 4 Felicia Leung. [address], [place], [place], [address], . tel:[phone] Referring Provider: Xochtil Perez, [address], [place], [address] . tel:[phone] OFFICE RLNAQ-QBE-LLN [facility], [address], [place], [place], [address] , tel:[phone] [facility] Chronic Conditions (chief complaint)c hronic conditions (chief complaint) Hypotension, unspecified hypotension typeHypertensive chronic kidney disease with stage 1 through stage 4 chronic kidney disease, or unspecified chronic kidney diseaseStage 3a chronic kidney diseaseUrinary frequencyAbnormal urinalysis 4 Felicia Leung. [address], [place], [place], [address], . tel:[phone] Referring Provider: Xochitl Perez, [address], [place], [address] . tel:[phone] OFFICE XBKPA-BAW-GPG [facility], [address], [place], [place], [address] , tel: [phone] [facility] Chronic Conditions (chief complaint) Hypertensive chronic kidney disease with stage 1 through stage 4 chronic kidney disease, or unspecified chronic kidney diseaseStage 3a chronic kidney diseaseOther emphysemaIron deficiency anemia, unspecified iron deficiency anemia typeHypotension, unspecified hypotension type 4 Cizek Xochitl. [address], [place], [place], [address], . tel:[phone] Referring Provider: Xochitl Perez, [address], [place], [address] . tel:[phone] [facility], [address], [place], [place], [address] , tel: [phone] [facility] No Information 4 Cizek Xochitl. [address], [place], [place], [address], [place]. [phone] [facility], [address], [place], [place], [address] , tel: [phone] [facility] Urinary frequency 4 Cizek Xochitl. [address], [place], [place], [address], . [phone] OFFICE URKUT-YEE-WUE [facility], [address], [place], [place], [address] , tel: [phone] [facility] Chronic Conditions (chief complaint) Hypertensive chronic kidney disease with stage 1 through stage 4 chronic kidney disease, or unspecified chronic kidney diseaseStage 3a chronic kidney diseaseOther emphysemaIron deficiency anemia, unspecified iron deficiency anemia type 4 Cizek Xochitl. [address], [place], [place], [address], . tel:[phone] Referring Provider: Xochitl Perez, [address], [place], [address] . tel:[phone] Transitional Care- First 7 Days Of Discharge [facility], [address], [place], [place], [address] , tel: [phone] [facility] Chronic Conditions (chief complaint) Hypertensive chronic kidney disease with stage 1 through stage 4 chronic kidney disease, or unspecified chronic kidney diseaseStage 3a chronic kidney diseaseAcute cystitis without hematuriaHyponatr emiaHypokalemiaLe ukocytosis, unspecified type 4 Felicia Leung. [address], [place], [place], [address], [place]. tel:[phone] Referring Provider: Xochitl Perez, [address], [place], [address] . tel:[phone] [facility], [address], [place], [place], [address] , tel: [phone] [facility] No Information 4 Felicia Leung. [address], [place], [place], [address], [place]. tel:[phone] Referring Provider: Xochitl Perez, [address], [place], [address] . tel:[phone] OFFICE XHGEQ-UFV-ZCC [facility], [address], [place], [place], [address] , tel: [phone] [facility] Chronic Conditions (chief complaint) Hypertensive chronic kidney disease with stage 1 through stage 4 chronic kidney disease, or unspecified chronic kidney diseaseStage 3a chronic kidney diseaseBilateral primary osteoarthritis of kneeIron deficiency anemia, unspecified iron deficiency anemia typeOther emphysemaEssentia l (primary) hypertension 3 Felicia Leung. [address], [place], [place], [address], . tel:[phone] Referring Provider: Xochitl Perez, [address], [place], [address] . tel:[phone] OFFICE HESDP-DRJ-VSY [facility], [address], [place], [place], [address] , tel: [phone] [facility] Chronic Conditions (chief complaint) Other emphysemaHyperten sive chronic kidney disease with stage 1 through stage 4 chronic kidney disease, or unspecified chronic kidney diseaseStage 3a chronic kidney diseaseBilateral primary osteoarthritis of kneeHypoxia 3 Felicia Leung. [address], [place], [place], [address], . [phone] Referring Provider: Xochitl Perez, [address], [place], [address] . tel:[phone] OFFICE AOCUR-QDT-PCC [facility], [address], [place], [place], [address] , tel: [phone] [facility] Chronic Conditions (chief complaint) Other emphysemaHypoxiaP ain in left knee 3 Felicia Leung. [address], [place], [place], [address], . [phone] Referring Provider: Xochitl Perez, [address], [place], [address] . tel:[phone] OFFICE CMYEM-UGU-UJS [facility], [address], [place], [place], [address] , tel: [phone] [facility] IM acute visit (chief complaint) Hypertensive chronic kidney disease with stage 1 through stage 4 chronic kidney disease, or unspecified chronic kidney diseaseStage 3a chronic kidney diseasePain in left kneePain in right kneeGastroesophag eal reflux disease with esophagitis without hemorrhage 3 Nohemi Mckeon. [address], [place], [place], [address], . tel:[phone] Referring Provider: Xochitl Perez, [address], [place], [address] . tel:[phone] [facility], [address], [place], [place], [address] , tel:[phone] [facility] No Information 3 K[address] Stokes. [address], [place] [address], [place], [place], [address], [place]. [phone] Referring Provider: Xochitl Perez, [address], [place], [address] . tel:[phone] [facility], [address], [place], [place], [address] , tel: [phone] [facility] No Information 3 Maikel Stein. [address] [place], [address], [place]. [phone] Referring Provider: Xochitl Perez, [address], [place], [address] . tel:[phone] [facility], [address], [place], [place], [address] , tel: [phone] [facility] Iron deficiency anemia, unspecified iron deficiency anemia type 3 Felicia Leung. [address], [place], [place], [address], [place]. [phone] OFFICE GYIMT-MIV-TNZ [facility], [address], [place], [place], [address] , [place] tel: [phone] [facility] Medicare preventive (chief complaint)C hronic Conditions (chief complaint) Hypertensive chronic kidney disease with stage 1 through stage 4 chronic kidney disease, or unspecified chronic kidney diseaseStage 3a chronic kidney diseaseOther emphysemaAtherosc lerosis of aortaSenile purpuraMedicare annual wellness visit, subsequentOsteope river of multiple sitesAnemia, unspecified typeRight wrist fracture, sequelaImpacted cerumen, bilateralMild cognitive impairment 3 Felicia Leung. [address], [place], [place], [address], [place]. tel:[phone] Referring Provider: Xochitl Perez, [address], [place], [address] . tel:[phone] OFFICE RABBL-TIV-WBW [facility], [address], [place], [place], [address] , [phone] [facility] IM acute visit (chief complaint) Diarrhea, unspecified typeHypertensive chronic kidney disease with stage 1 through stage 4 chronic kidney disease, or unspecified chronic kidney diseaseStage 3a chronic kidney disease 3 Nohemi Mckeon. [address], [place], [place], [address], . tel:[phone] Referring Provider: Xochitl Perez, [address], [place], [address] . tel:[phone] [facility], [address], [place], [place], [address] , [phone] [facility] No Information 3 Felicia Lindsay. [address] [place] [address], [id number], . tel:[phone] Referring Provider: Xochitl Perez, [address], [place], [address] . tel:[phone] OFFICE JOMZQ-LXQ-XIE [facility], [address], [place], [place], [address] , [place] tel:[phone] [facility] IM Chronic Conditions (chief complaint) Hypertensive chronic kidney disease with stage 1 through stage 4 chronic kidney disease, or unspecified chronic kidney diseaseStage 3a chronic kidney diseasePeripheral vascular diseaseAtheroscle rosis of aortaOther emphysema 3 Felicia Leung. [address], [place], [place], [address], [place]. tel:[phone] Referring Provider: Xochitl Perez, [address], [place], [address] . tel:[phone] OFFICE BDVGA-CAD-TTR [facility], [address], [place], [place], [address] , tel:[phone] [facility] IM Chronic Conditions (chief complaint) Hypertensive chronic kidney disease with stage 1 through stage 4 chronic kidney disease, or unspecified chronic kidney diseaseStage 3a chronic kidney diseasePain in right kneePain in left kneeOther chronic painLumbar radiculopathy 2 Felicia Leung. [address], [place], [place], [address], [place]. tel:[phone] Referring Provider: Xochitl Perez, [address], [place], [address] . tel:[phone] [facility], [address], [place], [place], [address] , tel:[phone] [facility] No Information 2 Felicia eLung. [address], [place], [place], [address], [place]. tel:[phone] Referring Provider: Xochitl Perez, [address], [place], [address] . tel:[phone] OFFICE HUYTI-NBH-YQQ ANDED [facility], [address], [place], [place], [address] , tel:[phone] [facility] Chronic Conditions (chief complaint) Hypertensive chronic kidney disease with stage 1 through stage 4 chronic kidney disease, or unspecified chronic kidney diseaseStage 3a chronic kidney diseaseLumbar radiculopathy 2 Felicia Leung. [address], [place], [place], [address], [place]. tel:[phone] Referring Provider: Xochitl Perez, [address], [place], [address] . tel:[phone] [facility], [address], [place], [place], [address] , [place] tel:[phone] [facility] No Information 2 Brenna Stokes. [address], [place], [place], [address], [place]. tel:[phone] Referring Provider: Garfield Basilio, [address] [facility] [address], [place], [address]. tel:[phone] [facility], [address], [place], [place], [address] , tel:[phone] [facility] No Information 2 Jaleel Jones. [address], [place], [place], [address], [place]. tel:[phone] Referring Provider: Xochitl Perez, [address], [place], [address] . tel:[phone] OFFICE GDHUZ-NIZ-GJR [facility], [address], [place], [place], [address] , tel:[phone] [facility] Hypertensive chronic kidney disease with stage 1 through stage 4 chronic kidney disease, or unspecified chronic kidney diseaseStage 3a chronic kidney diseaseAtheroscle rosis of aortaPeripheral vascular disease 2 Felicia Leung. [address], [place], [place], [address], [place]. tel:[phone] Referring Provider: Xochitl Perez, [address], [place], [address] . tel:[phone] OFFICE KAELO-CUB-LET [facility], [address], [place], [place], [address] , [place] tel:[phone] [facility] acute visit (chief complaint) Superficial phlebitisBenign essential hypertension Jul- 2 Nohemi Mckeon. [address], [place], [place], [address], [place]. tel:[phone] Referring Provider: Xochitl Perez, [address], [place], [address] . tel:[phone] BP OFFICE/OUTPAT IENT VISIT EST [facility], [address], [place], [place], [address] , [place] tel:[phone] [facility] IM DehydrationHypert ensive chronic kidney disease with stage 1 through stage 4 chronic kidney disease, or unspecified chronic kidney disease 2 Felicia Leung. [address], [place], [place], [address], [place]. tel:[phone] Referring Provider: Xochitl Perez, [address], [place], [address] . tel:[phone] OFFICE VHQGQ-RDX-NLS [facility], [address], [place], [place], [address] , tel: [phone] [facility] Chronic Conditions (chief complaint) Acute UTIDehydrationBen ign hypertensive renal diseaseStage 3a chronic kidney disease Apr-0 8 2 Cizek Xochitl. [address], [place], [place], [address], [place]. tel:[phone] Referring Provider: Xochitl Perez, [address], [place], [address] . tel:[phone] OFFICE ICTPQ-APN-YGO [facility], [address], [place], [place], [address] , tel: [phone] [facility] Chronic Conditions (chief complaint) Benign hypertensive renal diseaseOther emphysemaStage 3a chronic kidney diseaseDDD (degenerative disc disease), cervicalBilateral primary osteoarthritis of knee Jun-0 2 Cizek Xochitl. [address], [place], [place], [address], [place]. tel:[phone] Referring Provider: Xochitl Perez, [address], [place], [address] . tel:[phone] OFFICE YAEVB-ILM-IIU [facility], [address], [place], [place], [address] , tel: [phone] [facility] Chronic Conditions (chief complaint) Benign hypertensive renal diseaseStage 3a chronic kidney diseaseOther emphysemaDDD (degenerative disc disease), cervical Dec-0 1 Cizek Xochitl. [address], [place], [place], [address], [place]. tel:[phone] Referring Provider: Xochitl Perez, [address], [place], [address] . tel:[phone] [facility]ICE [facility], [address], [place], [place], [address] , tel: [phone] [facility] Chronic Conditions (chief complaint) Benign hypertensive renal diseaseStage 3a chronic kidney diseaseThoracic aortic aneurysm without rupture Sep-0 1 Felicia Leung. [address], [place], [place], [address], . tel:[phone] Referring Provider: Xochitl Perez, [address], [place], [address] . tel:[phone] [facility]ICE [facility], [address], [place], [place], [address] , tel: [phone] [facility] Chronic Conditions (chief complaint) Benign hypertensive renal diseaseStage 3a chronic kidney diseaseOther emphysemaTear of right biceps muscle, subsequent encounter 0 1 Felicia Leung. [address], [place], [place], [address], . tel:[phone] Referring Provider: Xochitl Perez, [address], [place], [address] . tel:[phone] OFFICE LAUXT-SUC-VCW [facility], [address], [place], [place], [address] , tel:[phone] [facility] Chronic Conditions (chief complaint) Benign hypertensive renal diseaseStage 3a chronic kidney diseaseThoracic aortic aneurysm without ruptureAtheroscle rosis of aortaSenile purpuraTear of right biceps muscle, subsequent encounter Jul-2 1 Felicia Leung. [address], [place], [place], [address], . tel:[phone] Referring Provider: Xochitl Perez, [address], [place], [address] . tel:[phone] [facility], [address], [place], [place], [address] , tel:[phone] [facility] Strain of muscle, fascia and tendon of other parts of biceps, right arm, initial encounter Apr-2 1 Felicia Leung. [address], [place], [place], [address], . tel:[phone] OFFICE MNSFY-AQM-HFX [facility], [address], [place], [place], [address] , tel: [phone] [facility] acute visit (chief complaint) Tear of right biceps muscle, initial encounterBenign hypertensive renal diseaseStage 3a chronic kidney disease Jul- 1 Nohemi Mckeon. [address], [place], [place], [address], . tel:[phone] Referring Provider: Xochitl Perez, [address], [place], [address] . tel:[phone] OFFICE [facility], [address], [place], [place], [address] , tel: [phone] [facility] Chronic Conditions (chief complaint) Hypertensive chronic kidney disease with stage 1 through stage 4 chronic kidney disease, or unspecified chronic kidney diseaseChronic kidney disease, stage 3 unspecifiedOther emphysema Jan- 0 Felicia Leung. [address], [place], [place], [address], [place]. tel:[phone] Referring Provider: Xochitl Perez, [address], [place], [address] . tel:[phone] OFFICE WXRYO-MOR-RAC [facility], [address], [place], [place], [address] , tel: [phone] [facility] Chronic Conditions (chief complaint) Other emphysemaThoracic aortic aneurysm without ruptureHypertensi ve chronic kidney disease with stage 1 through stage 4 chronic kidney disease, or unspecified chronic kidney diseaseChronic kidney disease, stage 3 (moderate)Vitamin D deficiencyFoot pain, right Sep-0 0 Felicia Leung. [address], [place], [place], [address], [place]. tel:[phone] Referring Provider: Xochitl Perez, [address], [place], [address] . tel:[phone] [facility], [address], [place], [place], [address] , tel:[phone] [facility] No Information 0 Brenna Stokes. [address], [place], [place], [address], . tel:[phone] Referring Provider: Xochitl Perez, [address], [place], [address] . tel:[phone] [facility], [address], [place], [place], [address] , tel:[phone] [facility] Breast nodule 0 Felicia Leung. [address], [place], [place], [address], [place]. [phone] [facility], [address], [place], [place], [address] , tel:[phone] [facility] No Information 0 Hank Ricci. [address], [place], [place], [address], [place]. tel:[phone] Referring Provider: Xochitl Perez, [address], [place], [address] . tel:[phone] TELEPHONE E&M SERVICE BY A PHYSICIAN;5-1 0 MINUTES OF MEDICAL DISCUSSION [facility], [address], [place], [place], [address] , tel:[phone] [facility] Chronic Conditions (chief complaint) Other emphysemaAllergic dermatitis Jul-2 0 0 Felicia Leung. [address], [place], [place], [address], [place]. [phone] Referring Provider: Xochitl Perez, [address], [place], [address] . tel:[phone] OFFICE VUTSZ-GYN-EGW RENETTA [facility], [address], [place], [place], [address] , [place] tel:[phone] [facility] Chronic Conditions (chief complaint) Essential hypertensionOther emphysemaThoracic aortic aneurysm without ruptureSenile purpuraAtheroscle rosis of aorta Mar- 0-202 0 Felicia Leung. [address], [place], [place], [address], [place]. tel:[phone] Referring Provider: Xochitl Perez, [address], [place], [address] . tel:[phone] [facility] [employer], [address] [place] [address], [address] , [place] tel:[phone] [facility] No Information 0 Felicia Lindsay. [address] [place], [place], [address], [place]. tel:[phone] Referring Provider: Kike Barbour, [address] [place] [address], [address] . tel:[phone] [employer], [address] [place] [address], [address] , tel:[phone] [facility] Periumbilical abdominal pain 0 Km Stokes. [address] [place] [address], [address], [place]. tel:[phone] [facility] [employer], [address] [place] [address], [address] , [place] tel:[phone] [facility] No Information 0 Km Stokes. [address] [place] [address], [address], . tel:[phone] Referring Provider: Xochitl Perez, [address], [place], [address] . tel:[phone] [facility], [address] [place] [address], [address] , [place] tel:[phone] [facility] No Information 0 Km Stokes. [address] [place] [address], [address], . tel:[phone] Referring Provider: Xochitl Perez, [address], [place], [address] . tel:[phone] OFFICE KSSZU-OGZ-ZUQ RENETTA [facility], [address], [place], [place], [address] , tel: [phone] [facility] Chronic Conditions (chief complaint) Essential hypertensionOther emphysemaRight lower quadrant abdominal painAnemia, unspecified type 9 Cizek Xochitl. [address], [place], [place], [address], . tel:[phone] Referring Provider: Xochitl Perez, [address], [place], [address] . tel:[phone] OFFICE HGUWR-DIV-BMN [facility], [address], [place], [place], [address] , tel: [phone] [facility] Chronic Conditions (chief complaint) Essential hypertensionOther emphysemaAnkle edema, bilateralOnychomy cosis 9 Cizek Xochitl. [address], [place], [place], [address], . tel:[phone] Referring Provider: Xochitl Perez, [address], [place], [address] . tel:[phone] [facility]ICE [facility], [address], [place], [place], [address] , tel: [phone] [facility] acute visit (chief complaint) Left foot painTobacco user 9 Kodak Cannon. [address] [facility], [address], [place], [place], [facility], . tel:[phone] Referring Provider: Xochitl Perez, [address], [place], [address] . tel:[phone] [facility], [address], [place], [place], [address] , tel: [phone] [facility] No Information 9 Cizek Xochitl. [address], [place], [place], [address], . tel:[phone] Referring Provider: Xochitl Perez, [address], [place], [address] . [phone] [facility], [address], [place], [place], [address] , tel: [phone] [facility] Chronic Conditions (chief complaint) Essential hypertensionOther emphysemaSenile purpuraLung nodulesThoracic aortic aneurysm without ruptureTobacco use 9 Cidawit Leung. [address], [place], [place], [address], . tel:[phone] Referring Provider: Xochitl Perez, [address], [place], [address] . tel:[phone] [facility], [address], [place], [place], [address] , tel: [phone] [facility] Chronic Conditions (chief complaint) Essential hypertensionOther emphysemaTobacco consumptionPneumo river of both lower lobes due to infectious organism 9 Felicia Leung. [address], [place], [place], [address], . tel:[phone] Referring Provider: Xochitl Perez, [address], [place], [address] . tel:[phone] [facility], [address], [place], [place], [address] , tel: [phone] [facility] Chronic Conditions (chief complaint) Pneumonia of both lower lobes due to infectious organismOther emphysemaTobacco consumptionEssent ial hypertensionSenil e purpura 9 Felicia Leung. [address], [place], [place], [address], [place]. tel:[phone] Referring Provider: Xochitl Perez, [address], [place], [address] . tel:[phone] [facility], [address], [place], [place], [address] , tel: [phone] [facility] Abnormal chest CT 8 Hank Ricci. [address], [place], [place], [address], [place]. tel:[phone] Referring Provider: Xochitl Perez, [address], [place], [address] . tel:[phone] [facility], [address], [place], [place], [address] , tel: [phone] [facility] Annual physical examEssential hypertensionOsteo peniaAnxiety disorder, unspecifiedVitami n D deficiencyTobacco consumptionGenera lized abdominal painBilateral impacted cerumen 8 Feilcia Leung. [address], [place], [place], [address], [place]. [phone] Referring Provider: Xochitl Perez, [address], [place], [address] . tel:[phone] [facility], [address], [place], [place], [address] , [place] tel: [phone] [facility] Encounter for screening for osteoporosis 8 Felicia Lenug. [address], [place], [place], [address], [place]. tel:[phone] [facility], [address], [place], [place], [address] , [place] tel: [phone] [facility] Essential hypertensionSenil e purpuraAnxiety disorder, unspecified 8 Felicia Leung. [address], [place], [place], [address], [place]. tel:[phone] Referring Provider: Xochitl Perez, [address], [place], [address] . tel:[phone] [facility], [address], [place], [place], [address] , [place] tel: [phone] [facility] IM OsteopeniaEssenti al hypertensionSenil e purpuraEncounter for gynecological examination (general) (routine) without abnormal findingsPolyosteo arthritis, unspecifiedAnxiet y disorder, unspecifiedFall, initial encounter 7 Cizek Xochitl. [address], [place], [place], [address], [place]. tel:[phone] Referring Provider: Xochitl Perez, [address], [place], [address] . tel:[phone] [facility], [address], [place], [place], [address] , [place] tel: [phone] [facility] Essential hypertensionAcute pain of right shoulder 2 7 Cizek Xochitl. [address], [place], [place], [address], [place]. tel:[phone] Referring Provider: Xochitl Perez, [address], [place], [address] . tel:[phone] [facility], [address], [place], [place], [address] , [place] tel: [phone] [facility] Essential hypertensionSenil e purpura 201 6 Cizek Xochitl. [address], [place], [place], [address], [place]. tel:[phone] Referring Provider: Xochitl Perez, [address], [place], [address] . tel:[phone] [facility], [address], [place], [place], [address] , [place] tel: [phone] [facility] No Information 3 6 Cizek Xochitl. [address], [place], [place], [address], [place]. tel:[phone] [facility], [address], [place], [place], [address] , [place] tel: [phone] [facility] Essential hypertension 6 Cizek Xochitl. [address], [place], [place], [address], [place]. tel:[phone] Referring Provider: Xochitl Perez, [address], [place], [address] . tel:[phone] [facility], [address], [place], [place], [address] , [place] tel: [phone] [facility] Elevated blood pressure (not hypertension) 6 Cizek Xochitl. [address], [place], [place], [address], [place]. tel: [phone] [facility], [address], [place], [place], [address] , [place] tel: [phone] [facility] Essential hypertension 6 Cizek Xochitl. [address], [place], [place], [address], [place]. tel: [phone] Referring Provider: Xochitl Perez, [address], [place], [address] . tel:[phone] [facility], [address], [place], [place], [address] , [place] tel: [phone] [facility] Essential hypertensionAcute viral conjunctivitis of both eyes 6 Cizek Xochitl. [address], [place], [place], [address], [place]. tel: [phone] Referring Provider: Xochitl Perez, [address], [place], [address] . tel:[phone] [facility], [address], [place], [place], [address] , [place] tel: [phone] [facility] Osteopenia 0 6 Cizek Xochitl. [address], [place], [place], [address], [place]. tel: [phone] [facility], [address], [place], [place], [address] , [place] tel: [phone] [facility] Right-sided low back pain without sciaticaOsteopeni aEssential hypertension 0-201 6 Detmer Bety. [address], [place], [place], [address], [place]. tel:[phone] Referring Provider: Xochitl Perez, [address], [place], [address] . tel:[phone] [facility], [address], [place], [place], [address] , tel: [phone] [facility] Routine gynecological examOsteoarthrosi s, Unspecified, Unspecified SiteOsteopeniaEle vated blood pressure (not hypertension)Ceru men impactionAbdomina l painAnxiety state, unspecified 5 Felicia Leung. [address], [place], [place], [address], [place]. tel:[phone] Referring Provider: Xochitl Perez, [address], [place], [address] . tel:[phone] [facility], [address], [place], [place], [address] , tel: [phone] [facility] Elevated blood pressure (not hypertension)Oste oarthrosis, generalized, involving unspecifiedTobacc o useAnxiety state, unspecifiedOsteop eniaCerumen impactionRoutine gynecological exam 3 Felicia Leung. [address], [place], [place], [address], [place]. tel:[phone] Referring Provider: Xochitl Perez, [address], [place], [address] . tel:[phone] [facility] [facility], [address], [place], [place], [address] , tel: [phone] [facility] IM Urinary tract infection, site not specifiedAcute upper respiratory infections of unspecified siteTobacco use disorder 3 Detmer Bety. [address], [place], [place], [address], [place]. tel:[phone] Referring Provider: Xochitl Perez, [address], [place], [address] . tel:[phone] [facility], [address], [place], [place], [address] , [place] tel: [phone] [facility] Osteoarthrosis, generalized, involving unspecified siteAnxiety state, unspecifiedTobacc o use disorderUrinary tract infection, site not specifiedElevated blood pressure reading without diagnosis of hypertension 2 Felicia Leung. [address], [place], [place], [address], [place]. tel:[phone] Referring Provider: Xochitl Perez, [address], [place], [address] . tel:[phone] [facility], [address], [place], [place], [address] , [place] tel: [phone] [facility] Urinary tract infection Mar- 2 Detmer Bety. [address], [place], [place], [address], [place]. tel:[phone] [facility], [address], [place], [place], [address] , [place] tel: [phone] [facility] Frequency of urinationElevated blood pressure (not hypertension)Toba tobacco buyer use 2 Detmer Bety. [address], [place], [place], [address], [place]. tel:[phone] Referring Provider: Xochitl Perez, [address], [place], [address] . tel:[phone] [facility], [address], [place], [place], [address] , [place] tel: [phone] [facility] Shoulder pain, left 2 Detmer Bety. [address], [place], [place], [address], [place]. tel:[phone] Referring Provider: Xochitl Perez, [address], [place], [address] . tel:[phone] [facility], [address], [place], [place], [address] , tel: [phone] [facility] Superficial injury of cornea 1 Siri Anthony. [address], [place], [place], [address]. tel:[phone] Referring Provider: Xochitl Perez, [address], [place], [address] . tel:[phone] [facility], [address], [place], [place], [address] , tel: [phone] [facility] Routine gynecological examinationAnxiet y state, unspecifiedOsteoa rthrosis, Unspecified, Unspecified SiteImpacted cerumen 8-201 1 Cizek Xochitl. [address], [place], [place], [address], [place]. tel:[phone] Referring Provider: Xochitl Perez, [address], [place], [address] . tel:[phone] [facility] [employer], [address], [place], [place], [address] , tel: [phone] [facility] PAIN IN LIMBREDNESS/DISCH ARGE OF EYE Jul-2 1-201 1 Cizek Xochitl. [address], [place], [place], [address], [place]. tel: [phone] [facility], [address], [place], [place], [address] , [place] tel: [phone] [facility] TOBACCO USE DISORDER 7-201 0 Cizek Xochitl. [address], [place], [place], [address], [place]. tel: [phone] [facility], [address], [place], [place], [address] , [place] tel: [phone] [facility] ANXIETY STATE NOSROUTINE MEDICAL EXAMSCREEN MAL NEOP-RECTUM 5-200 9 Cizek Xochitl. [address], [place], [place], [address], [place]. tel:[phone] [facility], [address], [place], [place], [address] , tel: [phone] [facility] PURE HYPERCHOLESTEROLE M 8-200 6 Cizek Xochitl. [address], [place], [place], [address], . tel:[phone] [facility], [address], [place], [place], [address] , tel: [phone] [facility] GENERAL OSTEOARTHROSISLON G-TERM USE MEDS NEC Sep-0 1-200 5 Cizek Xochitl. [address], [place], [place], [address], . tel:[phone] [facility], [address], [place], [place], [address] , tel: [phone] [facility] [place] OTHER SPECF VACNATION Dec-0 3-200 2 Cizek Xochitl. [address], [place], [place], [address], . tel: [phone] [facility], [address], [place], [place], [address] , tel: [phone] [facility] HORMONE REPLACE POSTMENO Sep-2 6-200 0 Cizek Xochitl. [address], [place], [place], [address], [place]. tel: [phone] [facility], [address], [place], [place], [address] , tel: [phone] [facility] SCREEN-BLOOD DIS NOS August-0 9-200 0 Cizek Xochitl. [address], [place], [place], [address], . tel: [phone] [facility], [address], [place], [place], [address] , tel: [phone] [facility] SCREEN FOR HYPERTENSION Apr-0 6-200 0 Cizek Xochitl. [address], [place], [place], [address], . tel:[phone] Family History Family Member Type Diagnosis Age At Onset No Information Immunizations Vaccine Date Status Comments Pfizer Comirnat COVID vaccine, promise-sucrose, 30mcg/0.3mL dose, 12 years [...] type Covered libertarian ID Authoriza tion(s) [employer] MD[place] P[place] PLANS [place] [id number] MEDICARE MB [id number] [employer] MD[place] P[place] PLANS [place] [id number] MEDICARE MB [id number] [facility] OPEN ACCESS I II III CI [id number] S01 MEDICARE MB [id number] [employer] OPEN ACCESS I II III CI [id number] S01 [employer] OPEN ACCESS I II III CI [id number] S01 [employer] OPEN ACCESS I II III CI [id number] S01 [employer] HMO CI [id number] [employer] HMO CI [id number] [employer] HMO CI [id number] [employer] HMO CI [id number] Social History Type Description Quantity Date Captured Comments Alcohol Use Details Unknown Caffeine Use Details Unknown Tobacco Use Status No Information Smoking Status No Information Sex Female Vital Signs Date / Time: Height Weight BMI Pulse Rate Blood Pressure Temperature Respiratory Rate Body Surface Area Head Circumference Head Circ. Percentile Wt./Sree. Percentile BMI percentile Pulse Ox Inhaled Ox 1:26 PM 66.50 in 73.936 kg (163.00 lbs) 25.9 1 kg/m eter (2) 82 /min 94/60 mm[Hg] 95 % Chief Complaint And Reason For Visit From encounter dated '11/28/2024 13:15'. acute visit (chief complaint). Description: Fara reports experiencing rectal bleeding from hemorrhoids, excessive sleepiness, URI symptoms, and a lack of energy. She mentions that her blood pressure has been fluctuating, mostly staying low, with readings as low as 88/60. She has been experiencing brain fog since darvin COVID, which she had on November 18, 2024. She stopped taking her bloodpressure medications, lisinopril and amlodipine yesterday, as advised by her doctor. She was diagnosed with Covid on November 08 and given a medrol hector then. She had continued URI symptoms and was given a zpak on November 24. The last several days she has been having more fatigue and low blood pressure readings. She stopped her BP medications yesterday but is still feeling fatigued today. She reports mild URI symptoms including a productive cough. She is hydrating well with at least 60-90 ouncesof water daily.She states she has had worsening hemorrhoids this past week as she has had mild diarrhea, noting bright red blood on the tissue when she wipes. She has been using suppositories to helpwith this. Reason For Referral Reason For Referral No Information Plan Of Treatment Date Type Action Status Goal Dietary manageme nt education, guidance, and counseling completed Referral Ordered: Xray, Abdomen, 2 Views ordered Referral Ordered: sAhwin Hinson -Pulmonology (related to Other emphysema) ordered Referral Referred To: Ashwin Hinson [address] [facility]
[address] [place], [phone] Ordered: Referrals: Pulmonology. Ashwin Hinson. Evaluation/diagnostic/treatment - Level 3 ordered Referral Referred To: [facility] [address], [phone] Ordered: CT scan of chest with contrast ordered Referral Referred To: [address], [place], [phone] Ordered: Screening mammography of both breasts Appointment date/timeframe: 08/08/2024 ordered Referral Referred To: [address] [place] [address] [address] [place], [place], [phone] Ordered: Colonoscopy, flexible; with biopsy, single or multiple Appointment date/timeframe: 11/05/2022 ordered Referral Referred To: [address] [place] [address] [address] [place], [place], [phone] Ordered: Upper gastrointestinal endoscopy Appointment date/timeframe: 11/05/2022 ordered Referral Referred To: Robert Lagunas DO [address] [place], [phone] Ordered: Referrals: Orthopedic Surgery. Robert Lagunas DO. Evaluation/diagnostic/treatment - Level 3 ordered Referral Referred To: [address], [place], [phone] Ordered: VENECIA (ankle brachial index) ordered Referral Referred To: [address] [place] [address], [id number] [phone] Ordered: Complete Doppler ultrasound of arteries of both lower extremities ordered Referral Ordered: X-RAY EXAM OF KNEES Bilateral ordered Referral Ordered: Complete Doppler ultrasound of renal artery ordered Referral Ordered: Complete duplex scan of renal vessels ordered Referral Ordered: CT of right upper extremity without contrast Right Appointment date/timeframe: 10/09/2020 ordered Referral Referred To: [address] [place] [address], [id number] [id number] Ordered: MRI upper extremity oth than jt w/o contr matrl ordered Referral Ordered: X-RAY EXAM OF FOOT Right ordered Referral Referred To: [address] [place] [address], [id number] [id number] Ordered: Spot compression mammography of left breast Left breast ordered Referral Referred To: [address] [place] [address], [id number] Ordered: US breast left limited Left breast ordered Referral Referred To: [address] [place] [address], [id number] [phone] Ordered: SCREENING MAMMOGRAM (CAD) Bilateral breast Appointment date/timeframe: 07/19/2019 ordered Referral Referred To: [address] [place] [address], [id number] [phone] Ordered: CT angiography chest w/contrast/noncontrast Appointment date/timeframe: 07/19/2019 ordered Referral Ordered: CT abdomen and pelvis w contrast ordered Referral Referred To: [address] [place] [address]
[address], [phone] Ordered: COLONOSCOPY, Flexible, Proximal To Splenic, Diagnostic, Wor W/O Collection Of Sp Appointment date/timeframe: 06/01/2019 ordered Referral Referred To: [address] [place] [address]
[address], [phone] Ordered: EGD, FLEXIBLE, TRANSORAL, DIAGNOSTIC W/ COLLECTION OF SPECIMEN Appointment date/timeframe: 06/01/2019 ordered Referral Ordered: X-RAY EXAM OF FOOT Left ordered Referral Ordered: Chest Xray, 2 Views ordered Appointment Fara Valencia BOOKED Future Order: Radiology Order Co mplete Doppler ultrasound of renal artery ([id number]), Sent on: Sent Future Order: Radiology Order Co mplete duplex scan of renal vessels ([id number]), Sent on: Sent Future Order: Radiology Order MR I upper extremity oth than jt w/o contr matrl ([id number]), Sent on: Sent History Of Present Illness Encounter Date Complaint History Of Prese nt Illness acute visit Fara reports experiencing rectal bleeding from hemorrhoids, excessive sleepiness, URI symptoms, and a lack of energy. She mentions that her blood pressure has been fluctuating, mostly staying low, with readings as low as 88/60. She has been experiencing brain fog since darvin COVID, which she had on November 18, 2024. She stopped taking her blood pressure medications, lisinopril and amlodipine yesterday, as advised by her doctor. She was diagnosed with Covid on November 08 and given a medrol hector then. She had continued URI symptoms and was given a zpak on November 24. The last several days she has been having more fatigue and low blood pressure readings. She stopped her BP medications yesterday but is still feeling fatigued today. She reports mild URI symptoms including a productive cough. She is hydrating well with at least 60-90 ounces of water daily.She states she has had worsening hemorrhoids this past week as she has had mild diarrhea, noting bright red blood on the tissue when she wipes. She has been using suppositories to help with this. Chronic Conditions *See Chronic Conditions HPI Chronic Conditions *See Chronic Conditions HPI acute visit Associated sympt oms include blood in stool and constipation. Pertinent negatives include abdominal pain, chest pain, cough, dyspnea, fatigue, headache, nausea, sinus pain/pressure, sore throat, vomiting, wheezing, fever, chills, joint pain and joint swelling.Fara reports experiencing bleeding issues with her hemorrhoids, which have been worsening over the last few weeks. The bleeding is bright red and occurs when wiping after bowel movements, but not enough to fill the toilet. She has been using [id number] creams for discomfort, finding some relief. She takes a stool softener daily, but limits it to one per day to avoid excessive effects. She mentions having had a colonoscopy in 2019 and expresses interest in scheduling another one.Fara recently recovered from a urinary tract infection treated with bactrim on October 02, with symptoms now improved and urine appearing clear. She maintains a routine of walking as much as possible and drinks at least 60 ounces of water daily. Additionally, she has been dealing with ear wax issues and has been using an OTC medication to help with it but has not had improvement. acute visit Patient presents with left lower abdominal pain that began 1 week ago. She has had slight constipation and a change in stool since starting hydrocodone, but states she feels she is not emptying fully and has pellet like stools. She has been straining more and noticed bright red blood on the tissue when she wipes. Chronic Conditions *See Chronic Conditions HPI Chronic Conditions *See Chronic Conditions HPI acute visit Patient presents for an ER follow up. She went to [place] [facility] on 04/17/2024 for shortness of breath, [...] an ER follow up. She went to [place] [facility] on 04/17/2024 for shortness of breath, [...] Information Instructions Date Instruction Additional Infor mation Let us know if this does not improve or worsens. Related to Bleeding hemorrhoids We will call you wit lab results. Let us know if your cough is not improving or if you are having any other symptoms. Related to COVID-19 IV fluids given in o ffice today. Monitor your BP at home, call us if you are having readings less than 100 systolic.Continue off lisinopril and amlodipine until further notice.Call us with BP readings later this week.Continue hydrating well with water. Related to Symptomatic hypotension We will call you wit h lab results. Continue hydrating well. Related to Other fatigue The BP is under good control but having some dizziness and ankle swelling. Decrease the Amlodipine to 5 mg po daily, #90, 1 rf. Check the BMP and follow up in 6 months. Flu shot in the fall. Related to Hypertensive chronic kidney disease with stage 1 through stage 4 chronic kidney disease, or unspecified chronic kidney disease Medicare questionair e completed and reviewed. Check the fasting labs and follow up in 6 months. Flu shot in the fall and follow up in 6 months. Schedule mammogram and BDE. Related to Medicare annual wellness visit, subsequent Decrease the fluid i ntake after 7 PM. Update in 3-4 weeks. Will add meds if needed. Related to Urinary frequency As above. Continue w ith the neck exercises. Neck exercises and lower back and knee exercises. Gabapentin twice daily and refilled the Hydrocodone. Related to Generalized osteoarthritis Continue with the pr esent inhalers. Flu shot in the fall. Related to Other emphysema Noted on the Chest C T in 2019. Doing well and continue to monitor. Good BP control. Related to Thoracic aortic aneurysm, without rupture, unspecified Stable. Noted on the prior CT of the abdomen in 2019. Check the fasting lipid panel today. Related to Atherosclerosis of aorta Repeat the CBC today. Related to Iron deficiency anemia, unspecified iron deficiency anemia type Ongoing joint pain a nd some neck pain. Begin Gabapentin 100 mg po twice daily, #180, 1 rf. Call with update in 3-4 weeks. Increase dosage as indicated. Related to Bilateral primary osteoarthritis of knee Repeat the BMP. Good hydration. Follow up in 6 months. Related to Stage 3a chronic kidney disease Continue hydrating well with taiwo er. Related to Stage 3a chronic kidney disease BP well controlled i n office today.Continue medications as prescribed. Related to Hypertensive chronic kidney disease with stage 1 through stage 4 chronic kidney disease, or unspecified chronic kidney disease You are due for your colonoscopy. Colonoscopy ordered, please complete this when able. Related to Encounter for screening for malignant neoplasm of colon Continue taking a st ool softener daily. Steroid suppository sent to pharmacy. Use this twice a day as needed up to 2 weeks.If no improvement let us know. Related to Bleeding hemorrhoids We will call you wit h results from your urinalysis. Continue hydrating well with water. Related to Acute UTI (urinary tract infection) Ear lavage done in office today. Related to Impacted cerumen of right ear Follow up with ortho .stop taking meloxicam. Related to Bilateral primary osteoarthritis of knee Blood pressure well controlled in office today.Continue medications as prescribed. Related to Hypertensive chronic kidney disease with stage 1 through stage 4 chronic kidney disease, or unspecified chronic kidney disease Continue hydrating w ell with water.We will call you with lab results. Related to Stage 3a chronic kidney disease Follow up with pulmonology. 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 Related to Rectal fissure We will call you wit h results from your abdominal xray.Try to follow a clear liquid diet for the next 3 days as discussed- this includes jello, water, broth, popsicles, etc.We may get a CT scan depending on what the xray shows and how you are feeling. Related to LLQ abdominal pain If this happens luisi n please call our office.Stop taking meloxicam.Follow up with pulmonology. Related to Coughing up blood Drink plenty of wate r.Start taking Senna-S twice daily.Call us if this does not improve. Related to Change in stool Right TKA in 3 month s after [...] iron deficiency anemia type Albuterol sent to [facility].Use this to help with shortness of breath [...] if not improving. Related to Folliculitis Recommend [place] nasal gel to help with this. Related [...] chronic kidney disease Doing well. Normal m [place] testing. Schedule mammogram. Follow up in 3 [...] if you stay at home, use hand chicken picker and wash your hands frequently. Especially when [...] if you stay at home, use hand chicken picker and wash your hands frequently. Especially when [...] if you stay at home, use hand chicken picker and wash your hands frequently. Especially when [...] to infectious organism Assessments Type Assessment Date assessment Other fatigue assessment COVID-19 assessment Symptomatic hypotension 025 assessment Bleeding hemorrhoids Mental Status Date Cognitive Assessment Orientation - [place] ed to time, place, person, situation. Patient Care Teams Name Effective Dates (start - stop) Status Members No Information
--- OUTSIDE RECORDS SUMMARY | 2024-11-28 08:15 | XMS_ITS | Continuity of Care Document ---
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 Name Role Phone Yue Bone Unavailable Unavailable [...] Procedures Procedure Date MED LIST DOCD IN [facility] CBC, INC PLATELETS AND DIFFERENTIAL COMPREHEN METABOLIC PANEL CMP URINALYSIS W MICROSCOPIC (UA) ROUTINE VENIPUNCTURE INTRAVENOUS INFUSION, HYDRATION; INITIAL , 31 MINUT NSALINE 1000CC OFFICE PAXLM-CVY-DUKCYXPC BODY MASS INDEX DOCD SYST BP LT 130 MM HG DIAST BP < 80 MM HG MED LIST DOCD IN [facility] FALL RISK ASSESSMENT DOC'D PRES/ABSN URINE INCON ASSESS BASIC METABOLIC PANEL(BMP) CBC, INC PLATELETS AND DIFFERENTIAL LIPID PANEL ROUTINE VENIPUNCTURE OFFICE [id number]-MAE-CCKUSCJZ PPPS, subseq visit BODY MASS INDEX DOCD SYST BP LT 130 MM HG DIAST BP 80-89 MM HG MED LIST DOCD IN RD URINALYSIS W MICROSCOPIC (UA) ROUTINE VENIPUNCTURE OFFICE WUHOT-BXV-HIHEMNHF BODY MASS INDEX DOCD SYST BP GE 130 - 139MM HG DIAST BP 80-89 MM HG Removal Impacted Cerumen Irrigation/Lava ge, Unilateral MED LIST DOCD IN RD CBC, INC PLATELETS AND DIFFERENTIAL COMPREHEN METABOLIC PANEL [facility] ROUTINE VENIPUNCTURE OFFICE WAZQX-OVI-JFSMHXXI BODY MASS INDEX DOCD SYST BP LT 130 MM HG DIAST BP < 80 MM HG BASIC METABOLIC PANEL(BMP) CBC, INC PLATELETS AND DIFFERENTIAL ROUTINE VENIPUNCTURE OFFICE ALPYP-JKI-TCVFQRRA BODY MASS INDEX DOCD SYST BP LT 130 MM HG DIAST BP < 80 MM HG Chest Xray, 2 Views OFFICE SDVOJ-NBC-IJLGQNRN BODY MASS INDEX DOCD SYST BP LT 130 MM HG DIAST BP < 80 MM HG CBC, INC PLATELETS AND DIFFERENTIAL COMPREHEN METABOLIC PANEL CMP LIPID PANEL VITAMIN D, 25-HYDROXY ROUTINE VENIPUNCTURE OFFICE ANOYA-ZAG-KKOZLGIH BODY MASS INDEX DOCD SYST BP LT 130 MM HG DIAST BP < 80 MM HG REMOVAL IMPACTED CERUMEN REQUIRING INSTR UMENTATION Covid Vaccine Admin, Single Dose 2023 Pfizer Comirnatjudd tri-sucrose COVID Vacci ne 30 mcg/ OFFICE PGEYS-KRP-HFJTEMEK BODY MASS INDEX DOCD SYST BP >= 140 MM HG6 IT DIAST BP >= 90 MM HG EKG (ELECTROCARDIOGRAM) OFFICE IGAWC-XGP-LMXISSUJ BODY MASS INDEX DOCD SYST BP >= 140 MM HG6 IT DIAST BP >= 90 MM HG BASIC METABOLIC PANEL(BMP) CBC, INC PLATELETS AND DIFFERENTIAL SARS-CoV-2/Flu/RSV (all targets) 2023 THYROID STIMULATION HORMONE(TSH) 2023 URINALYSIS W MICROSCOPIC (UA) ROUTINE VENIPUNCTURE OFFICE BJTYZ-PEE-OCISDZII BODY MASS INDEX DOCD SYST BP LT 130 MM HG DIAST BP 80-89 MM HG OFFICE ZAKAW-JOS-JPNPXQUW PPPS, subseq visit BODY MASS INDEX DOCD SYST BP LT 130 MM HG DIAST BP 80-89 MM HG URINALYSIS, REFLEX (UA) NSALINE 1000CC INTRAVENOUS INFUSION, HYDRATION; INITIAL , 31 MINUT INTRAVENOUS INFUSION, HYDRATION; EACH AD DITIONAL H OFFICE YHHHL-KJU-UUSQSWUV SYST BP LT 130 MM HG DIAST BP < 80 MM HG FALL RISK ASSESSMENT DOC'D PRES/ABSN URINE INCON ASSESS Clin depression screen doc CBC, INC PLATELETS AND DIFFERENTIAL COMPREHEN METABOLIC PANEL CMP FERRITIN LEVEL ROUTINE VENIPUNCTURE NSALINE 1000CC INTRAVENOUS INFUSION, HYDRATION; INITIAL , 31 MINUT OFFICE JFIKD-ORW-AVZPZPPX SYST BP LT 130 MM HG DIAST BP < 80 MM HG CBC, INC PLATELETS AND DIFFERENTIAL FERRITIN LEVEL ROUTINE VENIPUNCTURE OFFICE DTWHS-EFS-EUNVJIFK SYST BP >= 140 MM HG6 IT DIAST BP 80-89 MM HG BASIC METABOLIC PANEL(BMP) CBC, INC PLATELETS AND DIFFERENTIAL ROUTINE VENIPUNCTURE Transitional Care- First 7 Days Of Disch arge SYST BP >= 140 MM HG6 IT DIAST BP < 80 MM HG DSCHRG MED/CURRENT MED MERGE BASIC METABOLIC PANEL(BMP) CBC, INC PLATELETS AND DIFFERENTIAL FERRITIN LEVEL VITAMIN D, 25-HYDROXY ROUTINE VENIPUNCTURE OFFICE IHCWC-MEL-YPCTCYLU SYST BP LT 130 MM HG DIAST BP < 80 MM HG EKG (ELECTROCARDIOGRAM) PULSE OXIMETRY, MULTIPLE Admin influenza virus vac FLU VACC PRSV FREE INC ANTIG OFFICE RHTHJ-AWK-KPIVJNVM SYST BP LT 130 MM HG DIAST BP >= 90 MM HG Chest Xray, 2 Views OFFICE SDNCN-ASE-IETTUUTG SYST BP GE 130 - 139MM HG DIAST BP < 80 MM HG OFFICE OCHWZ-TRD-GJPRPTBN SYST BP >= 140 MM HG6 IT [...] MEDICARE Pneumococcal Conjugate Vaccine (PCV20) J OFFICE FSYYW-XSE-CBXXJSLH SYST BP LT 130 MM HG DIAST BP < 80 MM HG INIT PREVENT PHYS EXAM; LIMITED TO NEW B ENEFICIARY BASIC METABOLIC PANEL(BMP) CBC, INC PLATELETS AND DIFFERENTIAL ROUTINE VENIPUNCTURE INTRAVENOUS INFUSION, HYDRATION; INITIAL , 31 MINUT NSALINE 1000CC OFFICE BWOFT-ECM-EOTSTZRE SYST BP LT 130 MM HG DIAST BP < 80 MM HG DXA BONE DENSITY, AXIAL SCREENING MAMMOGRAM (CAD) Screening Digital Breast Tomosynthesis M OFFICE EKVKG-EAH-GTBOIVIC BASIC METABOLIC PANEL(BMP) ROUTINE VENIPUNCTURE X-RAY EXAM OF LUMBAR SPINE, A/P & LAT De KENALOG 10 MG KENALOG 10 MG ASP/INJ MAJOR JOINTOR BURSA, SHOULDER, H IP,KNEE W/O US GUIDANCE OFFICE MGSQP-KLX-YVLSDZDY IMMUN ADMIN (INC PERCUTANEOUS) SINGLE, F IRST INJ FLU VAC NO PRSV 4 IVA, 0.5mL DOSAGE OFFICE IIATL-TTF-AZJAXEEW DUPLEX SCAN OF ABD, PELV, SCROT, COMPLET E ULTRASOUND RETROPERITONEAL ( AORTA, RENAL, NODES) REAL TIME W/ DOCUMENTATION, CO DUPLEX SCAN LOWER EXTREMITY EXTREMITY STUDY/BILATERAL (VENECIA) 022 OFFICE DBVGN-TXS-UHRZYXQD BASIC METABOLIC PANEL(BMP) ROUTINE VENIPUNCTURE OFFICE JXJVP-ZQY-RHPJKPZQ BASIC METABOLIC PANEL(BMP) ROUTINE VENIPUNCTURE BP OFFICE/OUTPATIENT VISIT EST OFFICE RPDLN-DFH-BBWUMFZD CBC, INC PLATELETS AND DIFFERENTIAL COMPREHEN METABOLIC PANEL CMP ROUTINE VENIPUNCTURE INTRAVENOUS INFUSION, HYDRATION; INITIAL , 31 MINUT NSALINE 1000CC BASIC METABOLIC PANEL(BMP) ROUTINE VENIPUNCTURE OFFICE AVDAP-YNI-HTSRVIEO KENALOG 10 MG KENALOG 10 MG ASP/INJ MAJOR JOINTOR BURSA, SHOULDER, H IP,KNEE W/O US GUIDANCE X-RAY EXAM OF KNEES OFFICE NRWXJ-WOE-DTWXHDIA BASIC METABOLIC PANEL(BMP) ROUTINE VENIPUNCTURE OFFICE MREPC-DSP-HQJVJIYJ BASIC METABOLIC PANEL(BMP) ROUTINE VENIPUNCTURE IMMUN ADMIN (INC PERCUTANEOUS) SINGLE, F IRST INJ FLU VACC PRSV FREE INC ANTIG OFFICE FHYYG-KAI-LFMJHPTN BASIC METABOLIC PANEL(BMP) ROUTINE VENIPUNCTURE OFFICE BIIKB-UEK-UQQNODGJ OFFICE SWFZK-NGX-VAHUMCAZ OFFICE JRMPU-UPC-MAOGVUVF BASIC METABOLIC PANEL(BMP) PARATHYROID HORMONE (PTH) URIC ACID, (S) VITAMIN D, 25-HYDROXY ROUTINE VENIPUNCTURE OFFICE EXVUB-NOH-BWJIGSVM IMMUN ADMIN (INC PERCUTANEOUS) SINGLE, F IRST [...] DISCUSSION BASIC METABOLIC PANEL(BMP) ROUTINE VENIPUNCTURE OFFICE KZYRZ-DVO-BOJURHVA CT ABD&PELV 1+ SECTION/REGNS LOW OSMOLAR CONTRAST (300 TO 399 MG IODI NE) TISSUE EXAM BY PATHOLOGIST SCREENING COLONOSCOPY (NOT HIGH RISK) Ja UPPER GI ENDOSCOPY BIOPSY CBC, INC PLATELETS AND DIFFERENTIAL COMPREHEN METABOLIC PANEL [facility] 9 URINALYSIS, REFLEX (UA) ROUTINE VENIPUNCTURE OFFICE VOKSV-SYD-HHZJKDZA FERRITIN LEVEL COMPREHEN METABOLIC PANEL [facility] 9 ROUTINE VENIPUNCTURE OFFICE MBNAF-CFX-LXCGVKHL X-RAY EXAM OF FOOT OFFICE XSCPG-ZKK-ZRZRXGSH Results Test Name Date and Time Measure Units Reference Range Abnormal Flag Status Comments Panel Description: CBC W Auto Differential panel - Blood Final WBC 13:51:55 34.00 K/uL 3.80-10.80 H Final Performed by:TOS-95 (532) RBC 13:51:55 3.24 M/uL 3.80-5.10 L Final Performed by:TOS-95 (532) HGB 13:51:55 9.9 g/dL 11.7-15.5 L Final Performed by:VAMSHI-Amy () HCT 13:51:55 31.2 % 35.0-45.0 L Final Performed by:VAMSHI- () MCV 13:51:55 96.3 fL 80.0-100.0 Final Performed by:VAMSHI- () MCH 13:51:55 30.6 pg 27.0-33.0 Final Performed by:[employer]- () MCHC 13:51:55 31.7 g/dL 32.0-36.0 L Final Performed by:[employer]-Amy () RDW 13:51:55 13.7 % 11.0-15.0 Final Performed by:VAMSHI-Amy () PLT 13:51:55 396 K/uL 150-400 Final Performed by:[employer]-Amy () MPV 13:51:55 9.4 fL 6.0-12.0 Final Performed by:[employer]-Amy () IG # 13:51:55 0.47 K/uL 0.00-0.05 H Final Performed by:[employer]-Amy () IG % 13:51:55 1.4 % 0.0-0.9 H Final Performed by:[employer]-Amy () Neut # 13:51:55 29.14 K/uL 1.50-7.80 HH Final Performed by:[employer]-Amy () Neut % 13:51:55 85.7 % 40.0-75.0 H Final Performed by:[employer]- () Lym # 13:51:55 1.90 K/uL 0.85-3.90 Final Performed by:[employer]-Amy (532) Lym % 13:51:55 5.6 % 16.0-46.0 L Final Performed by:[employer]- (532) Arenac # 13:51:55 2.39 K/uL 0.20-1.10 H Final Performed by:TOS-95 (532) Arenac % 13:51:55 7.0 % 0.0-12.0 Final Performed by:TOS-Amy (532) Eos # 13:51:55 0.02 K/uL 0.02-0.50 Final Performed by:TOS-95 (532) Eos % 13:51:55 0.1 % 0.0-7.0 Final Performed by:TOS-95 (532) Baso # 13:51:55 0.08 K/uL 0.00-0.20 Final Performed by:TOS-95 (532) Baso % 13:51:55 0.2 % 0.0-2.0 Final Performed by:[employer]-Amy (532) NRBC # 13:51:55 0.000 K/uL 0.000-0.012 Final Performed by:[employer]-Amy (532) NRBC % 13:51:55 0.0 % 0.0-0.2 Final Performed by:TOS-Amy (532) WBC Comm 13:51:55 WBC Count Verified by Smear Review. WBC Differential Verified by Smear Review. Final Performed by:TOS-95 (532) RBC Morph 13:51:55 Normal Normal Final Performed by:TOS-95 (532) RBC Comm 13:51:55 Normal Normal Final Performed by:[employer] (532) Plt Est 13:51:55 Normal Normal Final Performed by:[employer] (532) Hem Comm 13:51:55 Slide Reviewed Final Performed by:[employer] (532) Panel Description: Comprehensive Metabolic Nury l Sodium 13:51:55 131 mmol/L 135-145 L Final Performed by:TOS-95 (532) Potassium 13:51:55 3.3 mmol/L 3.5-5.3 L Final Performed by:[facility] (532) Chloride 13:51:55 99 mmol/L 98-107 Final Performed by:[facility] (532) CO2 13:51:55 19 mEq/L 19-30 Final Performed by:[employer] (532) Glucose 13:51:55 104 mg/dL 65-99 H Final Performed by:[employer]-95 (532) BUN 13:51:55 22 mg/dL 9-20 H Final Performed by:[employer] [facility] (532) Creatinine 13:51:55 1.19 mg/dL 0.60-1.10 H Final Performed by:[employer] (532) BUN/Crea 13:51:55 18 Ratio 6-25 Final Performed by:[employer] (532) Calcium 13:51:55 8.8 mg/dL 8.6-10.4 Final Performed by:[employer] (532) Albumin 13:51:55 2.9 g/dL 3.5-5.1 L Final Performed by:[employer] (532) Protein, T 13:51:55 6.3 g/dL 6.3-8.4 Final Performed by:[employer] (532) Globulin 13:51:55 3.4 Calc 1.4-3.7 Final Performed by:[employer] (532) A/G 13:51:55 0.9 Ratio 0.8-2.0 Final Performed by:[employer] (532) Bilirubin, T 13:51:55 0.8 mg/dL 0.2-1.3 Final Performed by:[employer] (532) Alk Phos 13:51:55 186 U/L 38-126 H Final Performed by:[employer] (532) ALT 13:51:55 68 U/L 0-32 H Final Performed by:[employer] (532) AST 13:51:55 56 U/L 10-36 H Final Performed by:[employer] (532) eGFR 13:51:55 50 mL/min/ 1.73m2 >60 L Final CKD-EPI Equation (2020)Perfo rmed by:[employer]-95 (532) Panel Description: UA Complete/Reflex to Culture Final Color 13:51:55 YELLOW Colorless - Yellow Final Performed by:[employer]-95 (532) Appear 13:51:55 SL CLOUDY Clear A Final Performed by:[employer] (532) Glucose(U) 13:51:55 NEGATIVE Negative Final Performed by:[employer] (532) Bili (U) 13:51:55 NEGATIVE Negative Final Performed by:[employer] (532) Ketone 13:51:55 NEGATIVE Negative Final Performed by:[employer] (532) Spec Gr 13:51:55 1.014 1.005-1.035 Final Performed by:[employer] (532) Blood (U) 13:51:55 NEGATIVE Negative Final Performed by:[employer] (532) pH 13:51:55 6.0 5.0-8.0 Final Performed by:[employer] (532) Protein(U) 13:51:55 1+ Negative A Final Performed by:[employer] (532) Urobilin 13:51:55 NORMAL mg/dL 0.2-1.0 Final Performed by:[employer] (532) Nitrite 13:51:55 NEGATIVE Negative Final Performed by:[employer] (532) Leukocyte 13:51:55 NEGATIVE Negative Final Performed by:[employer] (532) WBC(U) 13:51:55 0-5 0-5 /hpf Final Performed by:[employer] (532) RBC(U) 13:51:55 None Seen 0-2 /hpf Final Performed by:[employer] (532) Epith Cell 13:51:55 Many None Seen A Final Performed by:[employer] (532) Bacteria 13:51:55 1+ None Seen A Final Performed by:[employer] (532) Mucus 13:51:55 Trace None Seen A Final Performed by:[employer] (532) Urine Culture 13:51:55 Not Required Final Performed by:[employer]-Amy (532) Panel Description: CBC W Auto Differential panel - Blood Final WBC 13:51:55 34.00 K/uL 3.80-10.80 H Final Performed by:VAMSHI-Amy (532) RBC 13:51:55 3.24 M/uL 3.80-5.10 L Final Performed by:[employer]-[facility]my (532) HGB 13:51:55 9.9 g/dL 11.7-15.5 L Final Performed by:[employer]-[facility]my (532) HCT 13:51:55 31.2 % 35.0-45.0 L Final Performed by:[employer]-[facility]my (532) MCV 13:51:55 96.3 fL 80.0-100.0 Final Performed by:SUELLEN () MCH 13:51:55 30.6 pg 27.0-33.0 Final Performed by:Activate NetworksReynoldAmy ([employer]) MCHC 13:51:55 31.7 g/dL 32.0-36.0 L Final Performed by:[employer] NetworksCorina ([employer]) RDW 13:51:55 13.7 % 11.0-15.0 Final Performed by:Activate NetworksReynoldAmy (532) PLT 13:51:55 396 K/uL 150-400 Final Performed by:[employer] NetworksCorina ([employer]) MPV 13:51:55 9.4 fL 6.0-12.0 Final Performed by:[employer]dera PharmaceuticalsAmy ([employer]) IG # 13:51:55 0.47 K/uL 0.00-0.05 H Final Performed by:[employer] (532) IG % 13:51:55 1.4 % 0.0-0.9 H Final Performed by:Activate NetworksReynoldAmy (532) Neut # 13:51:55 29.14 K/uL 1.50-7.80 HH Final Performed by:[employer] (532) Neut % 13:51:55 85.7 % 40.0-75.0 H Final Performed by:[employer] (532) Lym # 13:51:55 1.90 K/uL 0.85-3.90 Final Performed by:[employer]-95 (532) Lym % 13:51:55 5.6 % 16.0-46.0 L Final Performed by:[employer] (532) Arenac # 13:51:55 2.39 K/uL 0.20-1.10 H Final Performed by:[employer] (532) Arenac % 13:51:55 7.0 % 0.0-12.0 Final Performed by:[employer] (532) Eos # 13:51:55 0.02 K/uL 0.02-0.50 Final Performed by:[employer]-Aym (532) Eos % 13:51:55 0.1 % 0.0-7.0 Final Performed by:[employer] (532) Baso # 13:51:55 0.08 K/uL 0.00-0.20 Final Performed by:[employer] (532) Baso % 13:51:55 0.2 % 0.0-2.0 Final Performed by:[employer] (532) NRBC # 13:51:55 0.000 K/uL 0.000-0.012 Final Performed by:[employer] (532) NRBC % 13:51:55 0.0 % 0.0-0.2 Final Performed by:[employer] (532) WBC Comm 13:51:55 WBC Count Verified by Smear Review. WBC Differential Verified by Smear Review. Final Performed by:[employer] (532) RBC Morph 13:51:55 Normal Normal Final Performed by:[employer] (532) RBC Comm 13:51:55 Normal Normal Final Performed by:[employer] (532) Plt Est 13:51:55 Normal Normal Final Performed by:[employer] (532) Hem Comm 13:51:55 Slide Reviewed Final Performed by:SUELLEN (532) Advance Directives Directive Yes / No Effective [...] Date Provider Providers Copied on Encounter OFFICE AFUIK-XYT-JSJ [facility], [address] [facility], [place], [place], [address] , tel: [phone] [facility] acute visit (chief complaint) Other fatigueCOVID-19Sy mptomatic hypotensionBleedi ng hemorrhoids 5 Chadwick Turner. [address], [place], [place], [address], . [phone] Referring Provider: Xochitl Perez, [address], [place], [address] . tel:[phone] [facility], [address], [place], [place], [address] , tel:[phone] [facility] No Information 5 Felicia Leung. [address], [place], [place], [address], [place]. [phone] [facility], [address], [place], [place], [address] , [phone] [facility] No Information 5 Felicia Leung. [address], [place], [place], [address], . tel:[phone] OFFICE LDVYZ-XCK-UAC [facility], [address], [place], [place], [address] , tel:[phone] [facility] Chronic Conditions (chief complaint) Hypertensive chronic kidney disease with stage 1 through stage 4 chronic kidney disease, or unspecified chronic kidney diseaseStage 3a chronic kidney diseaseBilateral primary osteoarthritis of kneeOther emphysemaAtherosc lerosis of aortaIron deficiency anemia, unspecified iron deficiency anemia typeThoracic aortic aneurysm, without rupture, unspecifiedGenera lized osteoarthritisMed icare annual wellness visit, subsequentUrinary frequency 5 Felicia Leung. [address], [place], [place], [address], [place]. tel:[phone] Referring Provider: Xochitl Perez, [address], [place], [address] . tel:[phone] [facility], [address], [place], [place], [address] , tel:[phone] [facility] No Information 5 Felicia Leung. [address], [place], [place], [address], [place]. tel:[phone] [facility], [address], [place], [place], [address] , [place] tel: [phone] [facility] IM Encounter for screening for malignant neoplasm of colon 5 Felicia Leung. [address], [place], [place], [address], [place]. tel:[phone] OFFICE TRZIX-HBG-WDP RENETTA [facility], [address], [place], [place], [address] , tel:[phone] [facility] acute visit (chief complaint)C hronic Conditions (chief complaint) Bleeding hemorrhoidsAcute UTI (urinary tract infection)Impacte d cerumen of right earEncounter for screening for malignant neoplasm of colonHypertensive chronic kidney disease with stage 1 through stage 4 chronic kidney disease, or unspecified chronic kidney diseaseStage 3a chronic kidney diseaseEncounter for screening for malignant neoplasm of colon 5 Chadwick Turner. [address], [place], [place], [address], [place]. tel:[phone] Referring Provider: Xochitl Perez, [address], [place], [address] . tel:[phone] [facility], [address], [place], [place], [address] , tel: [phone] [facility] No Information 5 Felicia Leung. [address], [place], [place], [address], [place]. [phone] OFFICE ZLQVG-LZE-VWY RENETTA [facility], [address], [place], [place], [address] , tel: [phone] [facility] acute visit (chief complaint)C hronic Conditions (chief complaint) LLQ abdominal painChange in stoolRectal fissureCoughing up bloodHypertensive chronic kidney disease with stage 1 through stage 4 chronic kidney disease, or unspecified chronic kidney diseaseStage 3a chronic kidney diseaseRight lower lobe lung massBilateral primary osteoarthritis of knee Jul- 5 Chadwick Turner. [address], [place], [place], [address], . tel:[phone] Referring Provider: Xochitl Perez, [address], [place], [address] . tel:[phone] [facility], [address] [facility], [place], [place], [address] , tel: [phone] [facility] No Information 5 [employer]. [address] [facility], [address], [place], [place], [facility], . tel:[phone] [facility], [address], [place], [place], [address] , tel: [phone] [facility] Other emphysema 5 Felicia Leung. [address], [place], [place], [address], [place]. tel:[phone] [facility], [address], [place], [place], [address] , tel: [phone] [facility] No Information 5 Felicia Leung. [address], [place], [place], [address], [place]. tel:[phone] [facility], [address], [place], [place], [address] , tel: [phone] [facility] No Information 5 Felicia Leung. [address], [place], [place], [address], [place]. tel:[phone] OFFICE TYDSD-SWN-JVV [facility], [address], [place], [place], [address] , [place] tel: [phone] [facility] Chronic Conditions (chief complaint) Other emphysemaHyperten sive chronic kidney disease with stage 1 through stage 4 chronic kidney disease, or unspecified chronic kidney diseaseStage 3a chronic kidney diseaseIron deficiency anemia, unspecified iron deficiency anemia typeAcute pneumoniaRight lower lobe lung massAtheroscleros is of aortaThoracic aortic aneurysm, without rupture, unspecifiedBilate ral primary osteoarthritis of knee 5 Felicia Leung. [address], [place], [place], [address], [place]. tel:[phone] Referring Provider: Xochitl Perez, [address], [place], [address] . tel:[phone] OFFICE FWYIR-AYB-HLX [facility], [address], [place], [place], [address] , [place] tel: [phone] [facility] acute visit (chief complaint)C hronic Conditions (chief complaint) Acute pneumoniaEssentia l (primary) hypertensionOther emphysema 5 Chadwick Turner. [address], [place], [place], [address], [place]. tel:[phone] Referring Provider: Xochitl Perez, [address], [place], [address] . tel:[phone] OFFICE FPUDZ-YCY-KDV [facility], [address], [place], [place], [address] , tel:[phone] [facility] Chronic Conditions (chief complaint) Stage 3a chronic kidney diseaseHypertensi ve chronic kidney disease with stage 1 through stage 4 chronic kidney disease, or unspecified chronic kidney diseaseAtheroscle rosis of aortaOther emphysemaIron deficiency anemia, unspecified iron deficiency anemia typeActinic keratosisImpacted cerumen of both earsVaginal drynessScreening mammogram for breast cancer 4 [employer]. [address] [facility], [address], [place], [place], [facility], . tel:[phone] Referring Provider: Xochitl Perez, [address], [place], [address] . tel:[phone] [employer] [facility], [address], [place], [place], [address] , tel: [phone] [facility] No Information 4 Felicia Leung. [address], [place], [place], [address], [place]. tel:[phone] [employer], [address], [place], [place], [address] , tel: [phone] [facility] No Information 4 Felicia Leung. [address], [place], [place], [address], . tel:[phone] OFFICE NRPRS-AWQ-DHO [facility] [employer], [address], [place], [place], [address] , tel: [phone] [facility] Chronic Conditions (chief complaint) Hypertensive chronic kidney disease with stage 1 through stage 4 chronic kidney disease, or unspecified chronic kidney diseaseStage 3a chronic kidney diseaseFolliculit isNasal sore 4 [employer]. [address] [facility], [address], [place], [place], [facility], . tel:[phone] Referring Provider: Xochitl Perez, [address], [place], [address] . tel:[phone] OFFICE CVCDA-JOT-YCC [facility] [employer], [address], [place], [place], [id number] , tel: [phone] [facility] Hypertensive chronic kidney disease with stage 1 through stage 4 chronic kidney disease, or unspecified chronic kidney diseaseStage 3a chronic kidney disease 4 [employer] [id number] [facility], [address], [place], [facility], . tel:[phone] Referring Provider: Xochitl Perez, [address], [place], [address] . tel:[phone] OFFICE XTLAY-[facility], [address], [place], [place], [id number] , tel: [phone] [facility] Chronic Conditions (chief complaint) Hypertensive chronic kidney disease with stage 1 through stage 4 chronic kidney disease, or unspecified chronic kidney diseaseStage 3a chronic kidney diseaseAcute cystitis without hematuriaFatigue, unspecified typeSymptoms of upper respiratory infection (URI)Intermittent constipation [address] [employer] [address] [facility], [address], [place], [place], [facility], . tel:[phone] [id number] Referring Provider: Xochitl Perez, [address], [place], [address] . tel:[phone] OFFICE VIXTL-NVB-RKS [facility], [address], [place], [place], [address] , tel: [phone] [facility] Medicare preventive (chief complaint)M edicare preventive (chief complaint)C hronic Conditions (chief complaint) Hypertensive chronic kidney disease with stage 1 through stage 4 chronic kidney disease, or unspecified chronic kidney diseaseStage 3a chronic kidney diseaseMedicare annual wellness visit, subsequentAtheros clerosis of aortaThoracic aortic aneurysm, without rupture, unspecifiedOsteop enia of multiple sitesAcute cystitis without hematuria 4 Felicia Leung[address], [place], [place], [address], . tel:[phone] Referring Provider: Xochitl Perez, [address], [place], [address] . tel:[phone] OFFICE DCTSJ-HWR-BPG [facility], [address], [place], [place], [address] , tel: [phone] [facility] Chronic Conditions (chief complaint)c hronic conditions (chief complaint) Hypotension, unspecified hypotension typeHypertensive chronic kidney disease with stage 1 through stage 4 chronic kidney disease, or unspecified chronic kidney diseaseStage 3a chronic kidney diseaseUrinary frequencyAbnormal urinalysis 4 Cizek Xochitl. [address], [place], [place], [address], . tel:[phone] Referring Provider: Xochitl Perez, [address], [place], [address] . tel:[phone] OFFICE RIEPG-NOW-DLP [facility], [address], [place], [place], [address] , tel: [phone] [facility] IM Chronic Conditions (chief complaint) Hypertensive chronic kidney disease with stage 1 through stage 4 chronic kidney disease, or unspecified chronic kidney diseaseStage 3a chronic kidney diseaseOther emphysemaIron deficiency anemia, unspecified iron deficiency anemia typeHypotension, unspecified hypotension type 4 Cizek Xochitl. [address], [place], [place], [address], . [phone] Referring Provider: Xochitl Perez, [address], [place], [address] . tel:[phone] [facility], [address], [place], [place], [address] , tel: [phone] [facility] No Information 4 Cizek Xochitl. [address], [place], [place], [address], [place]. tel:[phone] [facility], [address], [place], [place], [address] , tel:[phone] [facility] Urinary frequency 4 Cizek Xochitl. [address], [place], [place], [address], . tel:[phone] OFFICE YMSOV-ENQ-JXB [facility], [address], [place], [place], [address] , tel: [phone] [facility] Chronic Conditions (chief complaint) Hypertensive chronic kidney disease with stage 1 through stage 4 chronic kidney disease, or unspecified chronic kidney diseaseStage 3a chronic kidney diseaseOther emphysemaIron deficiency anemia, unspecified iron deficiency anemia type 4 Felicia Leung. [address], [place], [place], [address], . [phone] Referring Provider: Xochitl Perez, [address], [place], [address] . tel:[phone] Transitional Care- First 7 Days Of Discharge [facility], [address], [place], [place], [address] , tel: [phone] [facility] Chronic Conditions (chief complaint) Hypertensive chronic kidney disease with stage 1 through stage 4 chronic kidney disease, or unspecified chronic kidney diseaseStage 3a chronic kidney diseaseAcute cystitis without hematuriaHyponatr emiaHypokalemiaLe ukocytosis, unspecified type 4 Felicia Leung. [address], [place], [place], [address], . [phone] Referring Provider: Xochitl Perez, [address], [place], [address] . tel:[phone] [facility], [address], [place], [place], [address] , tel:[phone] [facility] IM No Information 4 Felicia Leung. [address], [place], [place], [address], . [phone] Referring Provider: Xochitl Perez, [address], [place], [address] . tel:[phone] OFFICE URUWC-TEW-HCW RENETTA [facility], [address], [place], [place], [address] , tel:[phone] [facility] Chronic Conditions (chief complaint) Hypertensive chronic kidney disease with stage 1 through stage 4 chronic kidney disease, or unspecified chronic kidney diseaseStage 3a chronic kidney diseaseBilateral primary osteoarthritis of kneeIron deficiency anemia, unspecified iron deficiency anemia typeOther emphysemaEssentia l (primary) hypertension 3 Felicia Leung. [address], [place], [place], [address], . tel:[phone] Referring Provider: Xochitl Perez, [address], [place], [address] . tel:[phone] OFFICE QQAEC-SOP-AQZ [facility], [address], [place], [place], [address] , tel: [phone] [facility] Chronic Conditions (chief complaint) Other emphysemaHyperten sive chronic kidney disease with stage 1 through stage 4 chronic kidney disease, or unspecified chronic kidney diseaseStage 3a chronic kidney diseaseBilateral primary osteoarthritis of kneeHypoxia 3 Felicia Leung. [address], [place], [place], [address], . tel:[phone] Referring Provider: Xochitl Perez, [address], [place], [address] . tel:[phone] OFFICE MMMZI-RTV-YTF [facility], [address], [place], [place], [address] , tel:[phone] [facility] Chronic Conditions (chief complaint) Other emphysemaHypoxiaP ain in left knee 3 Felicia Leung. [address], [place], [place], [address], [place]. tel:[phone] Referring Provider: Xochitl Perez, [address], [place], [address] . tel:[phone] OFFICE DDKFJ-WMN-NTB [facility], [address], [place], [place], [address] , tel: [phone] [facility] IM acute visit (chief complaint) Hypertensive chronic kidney disease with stage 1 through stage 4 chronic kidney disease, or unspecified chronic kidney diseaseStage 3a chronic kidney diseasePain in left kneePain in right kneeGastroesophag eal reflux disease with esophagitis without hemorrhage 3 Nohemi Mckeon. [address], [place], [place], [address], [place]. [phone] Referring Provider: Xochitl Perez, [address], [place], [address] . tel:[phone] [facility] [employer], [address], [place], [place], [address] , [place] tel:[phone] [facility] No Information 3 Km Stokes. [address] [facility], [address] [address], [place], [place], [address], [place]. tel:[phone] Referring Provider: Xochitl Perez, [address], [place], [address] . tel:[phone] [employer], [address], [place], [place], [address] , [place] tel:[phone] [facility] No Information 3 Maikel Stein. [address] [place], [place], [facility], [place]. tel:[phone] Referring Provider: Xochitl Perez, [address], [place], [address] . tel:[phone] [employer], [address], [place], [place], [address] , [place] tel:[phone] [facility] Iron deficiency anemia, unspecified iron deficiency anemia type 3 Felicia Leung. [address], [place], [place], [address], [place]. [phone] OFFICE LJCVR-ZYO-ZVF RENETTA [facility], [address], [place], [place], [address] , [place] tel: [phone] [facility] Medicare preventive (chief complaint)C hronic Conditions (chief complaint) Hypertensive chronic kidney disease with stage 1 through stage 4 chronic kidney disease, or unspecified chronic kidney diseaseStage 3a chronic kidney diseaseOther emphysemaAtherosc lerosis of aortaSenile purpuraMedicare annual wellness visit, subsequentOsteope river of multiple sitesAnemia, unspecified typeRight wrist fracture, sequelaImpacted cerumen, bilateralMild cognitive impairment 3 Felicia Leung. [address], [place], [place], [address], [place]. tel:[phone] Referring Provider: Xochitl Perez, [address], [place], [address] . tel:[phone] OFFICE QDLUK-LLI-NYH [facility], [address], [place], [place], [address] , [place] tel:[phone] [facility] acute visit (chief complaint) Diarrhea, unspecified typeHypertensive chronic kidney disease with stage 1 through stage 4 chronic kidney disease, or unspecified chronic kidney diseaseStage 3a chronic kidney disease 3 Nohemi Mckeon. [address], [place], [place], [address], [place]. tel:[phone] Referring Provider: Xochitl Perez, [address], [place], [address] . tel:[phone] [facility], [address], [place], [place], [address] , [place] tel:[phone] [facility] No Information 3 Felicia Lindsay. [address] [place] [address], [address], . tel:[phone] Referring Provider: Xochitl Perez, [address], [place], [address] . tel:[phone] OFFICE TWSSC-JPA-DLH [facility], [address], [place], [place], [address] , [place] [phone] [facility] Chronic Conditions (chief complaint) Hypertensive chronic kidney disease with stage 1 through stage 4 chronic kidney disease, or unspecified chronic kidney diseaseStage 3a chronic kidney diseasePeripheral vascular diseaseAtheroscle rosis of aortaOther emphysema Feb-0 3 Felicia Leung[address], [place], [place], [address], [place]. tel:[phone] Referring Provider: Xochitl Perez, [address], [place], [address] . tel:[phone] OFFICE XLYDU-WYL-IXA RENETTACHI [facility], [address], [place], [place], [address] , tel: [phone] [facility] Chronic Conditions (chief complaint) Hypertensive chronic kidney disease with stage 1 through stage 4 chronic kidney disease, or unspecified chronic kidney diseaseStage 3a chronic kidney diseasePain in right kneePain in left kneeOther chronic painLumbar radiculopathy 2 Cizek Xochitl. [address], [place], [place], [address], . [phone] Referring Provider: Xochitl Perez, [address], [place], [address] . tel:[phone] [facility], [address], [place], [place], [address] , tel:[phone] [facility] No Information 2 Bridgetzemarilyn Leung. [address], [place], [place], [address], . tel:[phone] Referring Provider: Xochitl Perez, [address], [place], [address] . tel:[phone] OFFICE MXKVX-UAL-PTD ANDCHI [facility], [address], [place], [place], [address] , tel:[phone] [facility] Chronic Conditions (chief complaint) Hypertensive chronic kidney disease with stage 1 through stage 4 chronic kidney disease, or unspecified chronic kidney diseaseStage 3a chronic kidney diseaseLumbar radiculopathy 2 Cizek Xochitl. [address], [place], [place], [address], . tel:[phone] Referring Provider: Xochitl Perez, [address], [place], [address] . tel:[phone] [facility], [address], [place], [place], [address] , tel:[phone] [facility] No Information 2 Brenna Stokes. [address], [place], [place], [address], [place]. tel:[phone] Referring Provider: Garfield Basilio, [address] [facility] [address], [place], [address]. tel:[phone] [facility], [address], [place], [place], [address] , [place] tel:[phone] [facility] No Information 2 Jaleel Jones. [address], [place], [place], [address], [place]. tel:[phone] Referring Provider: Xochitl Perez, [address], [place], [address] . tel:[phone] OFFICE UKEWI-YTF-WUJ [facility], [address], [place], [place], [address] , [place] tel:[phone] [facility] Hypertensive chronic kidney disease with stage 1 through stage 4 chronic kidney disease, or unspecified chronic kidney diseaseStage 3a chronic kidney diseaseAtheroscle rosis of aortaPeripheral vascular disease 2 Felicia Leung. [address], [place], [place], [address], [place]. tel:[phone] Referring Provider: Xochitl Perez, [address], [place], [address] . tel:[phone] OFFICE XAJQE-ANX-PBM [facility], [address], [place], [place], [address] , [place] [phone] [facility] acute visit (chief complaint) Superficial phlebitisBenign essential hypertension 2 Nohemi Mckeon. [address], [place], [place], [address], [place]. tel:[phone] Referring Provider: Xochitl Perez, [address], [place], [address] . tel:[phone] OFFICE/OUTPAT IENT VISIT EST [facility], [address], [place], [place], [address] , tel: [phone] [facility] IM DehydrationHypert ensive chronic kidney disease with stage 1 through stage 4 chronic kidney disease, or unspecified chronic kidney disease Apr- 3 2 Cizek Xochitl. [address], [place], [place], [address], [place]. tel:[phone] Referring Provider: Xochitl Perez, [address], [place], [address] . tel:[phone] OFFICE ISSVC-HYX-EYQ [facility], [address], [place], [place], [address] , tel:[phone] [facility] Chronic Conditions (chief complaint) Acute UTIDehydrationBen ign hypertensive renal diseaseStage 3a chronic kidney disease Apr-0 2 Cizek Xochitl. [address], [place], [place], [address], [place]. tel:[phone] Referring Provider: Xochitl Perez, [address], [place], [address] . tel:[phone] OFFICE EZBFF-MJV-WUK [facility], [address], [place], [place], [address] , [place] tel:[phone] [facility] Chronic Conditions (chief complaint) Benign hypertensive renal diseaseOther emphysemaStage 3a chronic kidney diseaseDDD (degenerative disc disease), cervicalBilateral primary osteoarthritis of knee Mar-0 - 2 Cizek Xochitl. [address], [place], [place], [address], [place]. tel:[phone] Referring Provider: Xochitl Perez, [address], [place], [address] . tel:[phone] OFFICE DLUQY-LBC-IHV [facility], [address], [place], [place], [address] , tel:[phone] [facility] IM Chronic Conditions (chief complaint) Benign hypertensive renal diseaseStage 3a chronic kidney diseaseOther emphysemaDDD (degenerative disc disease), cervical Dec-0 1 Felicia Leung. [address], [place], [place], [address], [place]. tel:[phone] Referring Provider: Xochitl Perez, [address], [place], [address] . tel:[phone] OFFICE VZEFL-GXL-MKI [facility], [address], [place], [place], [address] , tel:[phone] [facility] Chronic Conditions (chief complaint) Benign hypertensive renal diseaseStage 3a chronic kidney diseaseThoracic aortic aneurysm without rupture Dec-0 1 Felicia Leung. [address], [place], [place], [address], [place]. tel:[phone] Referring Provider: Xochitl Perez, [address], [place], [address] . tel:[phone] OFFICE UGPST-EWZ-TMD [facility], [address], [place], [place], [address] , tel: [phone] [facility] Chronic Conditions (chief complaint) Benign hypertensive renal diseaseStage 3a chronic kidney diseaseOther emphysemaTear of right biceps muscle, subsequent encounter Sep-0 1 Felicia Leung[address], [place], [place], [address], [place]. tel:[phone] Referring Provider: Xochitl Perez, [address], [place], [address] . tel:[phone] OFFICE ZULYO-VAZ-WFY [facility], [address], [place], [place], [address] , tel:[phone] [facility] Chronic Conditions (chief complaint) Benign hypertensive renal diseaseStage 3a chronic kidney diseaseThoracic aortic aneurysm without ruptureAtheroscle rosis of aortaSenile purpuraTear of right biceps muscle, subsequent encounter Jul-2 1 Felicia Leung. [address], [place], [place], [address], [place]. tel:[phone] Referring Provider: Xochitl Perez, [address], [place], [address] . tel:[phone] [facility], [address], [place], [place], [address] , tel:[phone] [facility] Strain of muscle, fascia and tendon of other parts of biceps, right arm, initial encounter 1 Felicia Leung. [address], [place], [place], [address], [place]. [phone] OFFICE YQFZY-EPC-GEG [facility], [address], [place], [place], [address] , tel: [phone] [facility] acute visit (chief complaint) Tear of right biceps muscle, initial encounterBenign hypertensive renal diseaseStage 3a chronic kidney disease Jul- 1 Nohemi Mckeon. [address], [place], [place], [address], [place]. [phone] Referring Provider: Xochitl Perez, [address], [place], [address] . tel:[phone] OFFICE EHJZC-VNQ-NYW ANDCHI [facility], [address], [place], [place], [address] , tel:[phone] [facility] Chronic Conditions (chief complaint) Hypertensive chronic kidney disease with stage 1 through stage 4 chronic kidney disease, or unspecified chronic kidney diseaseChronic kidney disease, stage 3 unspecifiedOther emphysema 0 Felicia Leung. [address], [place], [place], [address], [place]. tel:[phone] Referring Provider: Xochitl Perez, [address], [place], [address] . tel:[phone] OFFICE FLNNT-KGR-TQP [facility], [address], [place], [place], [address] , tel:[phone] [facility] IM Chronic Conditions (chief complaint) Other emphysemaThoracic aortic aneurysm without ruptureHypertensi ve chronic kidney disease with stage 1 through stage 4 chronic kidney disease, or unspecified chronic kidney diseaseChronic kidney disease, stage 3 (moderate)Vitamin D deficiencyFoot pain, right Sep-0 9-202 0 Felicia Leung. [address], [place], [place], [address], [place]. [phone] Referring Provider: Xochitl Perez, [address], [place], [address] . tel:[phone] [facility], [address], [place], [place], [address] , tel:[phone] [facility] No Information Olvin- 2-202 0 Brenna Stokes. [address], [place], [place], [address], [place]. [phone] Referring Provider: Xochitl Perez, [address], [place], [address] . tel:[phone] [address] [facility], [place], [place], [address] , tel:[phone] [facility] Breast nodule May-2 7 0 Felicia Leung. [address], [place], [place], [address], [place]. [phone] [address] [facility], [place], [place], [address] , tel:[phone] [facility] No Information August-2 0-202 0 Hank Ricci. [address], [place], [place], [address], . [phone] Referring Provider: Xochitl Perez, [address], [place], [address] . tel:[phone] TELEPHONE E&M SERVICE BY A PHYSICIAN;5-1 0 MINUTES OF MEDICAL DISCUSSION [address] [facility], [place], [place], [address] , tel:[phone] [facility] Chronic Conditions (chief complaint) Other emphysemaAllergic dermatitis Apr-2 0-202 0 Felicia Leung. [address], [place], [place], [address], [place]. tel:[phone] Referring Provider: Xochitl Perez, [address], [place], [address] . tel:[phone] OFFICE DQWBZ-BMH-SOP RENETTA [facility], [address], [place], [place], [address] , [place] tel:[phone] [facility] Chronic Conditions (chief complaint) Essential hypertensionOther emphysemaThoracic aortic aneurysm without ruptureSenile purpuraAtheroscle rosis of aorta 0 Felicia Leung. [address], [place], [place], [address], [place]. tel:[phone] Referring Provider: Xochitl Perez, [address], [place], [address] . tel:[phone] [facility], [address], [place], [place], [address] , [place] tel:[phone] [facility] No Information 0 Felicia Lindsay. [address], [place], [address], [place]. tel:[phone] Referring Provider: Kike Barbour, [address] [place] [address], [address] . tel:[phone] [facility], [address], [place], [place], [address] , [place] tel:[phone] [facility] Periumbilical abdominal pain 0 Km Stokes. [address] [place] [address], [address], [place]. tel:[phone] [facility], [address], [place], [place], [address] , [place] tel:[phone] [facility] No Information 0 Km Stokes. [address] [place] [address], [address], [place]. tel:[phone] Referring Provider: Xochitl Perez, [address], [place], [address] . tel:[phone] [facility], [address], [place], [place], [address] , tel: [phone] [facility] No Information 0 Km Stokes. [address] [facility], [address] [address], [place], [place], [address], . tel:[phone] Referring Provider: Xochitl Perez, [address], [place], [address] . tel:[phone] OFFICE GLSNE-TQT-HLI [facility], [address], [place], [place], [address] , tel: [phone] [facility] Chronic Conditions (chief complaint) Essential hypertensionOther emphysemaRight lower quadrant abdominal painAnemia, unspecified type 9 Felicia Leung. [address], [place], [place], [address], . tel:[phone] Referring Provider: Xochitl Perez, [address], [place], [address] . tel:[phone] OFFICE UWADR-ZXT-MBV [facility], [address], [place], [place], [address] , tel: [phone] [facility] Chronic Conditions (chief complaint) Essential hypertensionOther emphysemaAnkle edema, bilateralOnychomy cosis 9 Felicia Leung. [address], [place], [place], [address], [place]. tel:[phone] Referring Provider: Xochitl Perez, [address], [place], [address] . tel:[phone] OFFICE VRZXA-LSR-WBD ANDCHI [facility], [address], [place], [place], [address] , tel: [phone] [facility] acute visit (chief complaint) Left foot painTobacco user 9 [employer]. [address] [facility], [address], [place], [place], [facility], . tel:[phone] Referring Provider: Xochitl Perez, [address], [place], [address] . tel:[phone] [facility], [address], [place], [place], [address] , tel: [phone] [facility] No Information 9 Cizek Xochitl. [address], [place], [place], [address], . tel:[phone] Referring Provider: Xochitl Perez, [address], [place], [address] . tel:[phone] [facility], [address], [place], [place], [address] , tel: [phone] [facility] Chronic Conditions (chief complaint) Essential hypertensionOther emphysemaSenile purpuraLung nodulesThoracic aortic aneurysm without ruptureTobacco use 9 Cizemarilyn Leung. [address], [place], [place], [address], . tel:[phone] Referring Provider: Xochitl Perez, [address], [place], [address] . tel:[phone] [employer], [address], [place], [place], [address] , tel: [phone] [facility] Chronic Conditions (chief complaint) Essential hypertensionOther emphysemaTobacco consumptionPneumo river of both lower lobes due to infectious organism 9 Cizemarilyn Leung. [address], [place], [place], [address], . tel:[phone] Referring Provider: Xochitl Perez, [address], [place], [address] . tel:[phone] [facility], [address], [place], [place], [address] , tel: [phone] [facility] Chronic Conditions (chief complaint) Pneumonia of both lower lobes due to infectious organismOther emphysemaTobacco consumptionEssent ial hypertensionSenil e purpura 9 Cizek Xochitl. [address], [place], [place], [address], [place]. [phone] Referring Provider: Xochitl Perez, [address], [place], [address] . tel:[phone] [facility], [address], [place], [place], [address] , [place] tel: [phone] [facility] Abnormal chest CT 8 Hank Ricci. [address] , [place], [place], [address], [place]. tel:[phone] Referring Provider: Xochitl Perez, [address], [place], [address] . tel:[phone] [facility], [address], [place], [place], [address] , [place] tel: [phone] [facility] Annual physical examEssential hypertensionOsteo peniaAnxiety disorder, unspecifiedVitami n D deficiencyTobacco consumptionGenera lized abdominal painBilateral impacted cerumen 8 Cizek Xochitl. [address], [place], [place], [address], [place]. tel:[phone] Referring Provider: Xochitl Perez, [address], [place], [address] . tel:[phone] [facility], [address], [place], [place], [address] , [place] tel: [phone] [facility] Encounter for screening for osteoporosis 8 Cizek Xochitl. [address], [place], [place], [address], [place]. tel:[phone] [facility], [address], [place], [place], [address] , [place] tel: [phone] [facility] Essential hypertensionSenil e purpuraAnxiety disorder, unspecified Fe 8 Cizek Xochitl. [address], [place], [place], [address], [place]. tel:[phone] Referring Provider: Xochitl Perez, [address], [place], [address] . tel:[phone] [facility], [address], [place], [place], [address] , [place] tel: [phone] [facility] OsteopeniaEssenti al hypertensionSenil e purpuraEncounter for gynecological examination (general) (routine) without abnormal findingsPolyosteo arthritis, unspecifiedAnxiet y disorder, unspecifiedFall, initial encounter 7 Felicia Leung. [address], [place], [place], [address], [place]. tel:[phone] Referring Provider: Xochitl Perez, [address], [place], [address] . tel:[phone] [facility], [address], [place], [place], [address] , [place] tel: [phone] [facility] Essential hypertensionAcute pain of right shoulder 7 Felicia Leung. [address], [place], [place], [address], [place]. tel:[phone] Referring Provider: Xochitl Perez, [address], [place], [address] . tel:[phone] [facility], [address], [place], [place], [address] , [place] tel: [phone] [facility] Essential hypertensionSenil e purpura 6 Bridgetzemarilyn Xochitl. [address], [place], [place], [address], [place]. tel:[phone] Referring Provider: Xochitl Perez, [address], [place], [address] . tel:[phone] [facility], [address], [place], [place], [address] , [place] tel: [phone] [facility] No Information 3 6 Cizemarilyn Xochitl. [address], [place], [place], [address], [place]. tel: [phone] [facility], [address], [place], [place], [address] , tel: [phone] [facility] Essential hypertension 0 5-201 6 Cizek Xochitl. [address], [place], [place], [address], [place]. tel: [phone] Referring Provider: Xochitl Perez, [address], [place], [address] . tel:[phone] [facility], [address], [place], [place], [address] , [place] tel: [phone] [facility] Elevated blood pressure (not hypertension) 6-201 6 Cizek Xochitl. [address], [place], [place], [address], [place]. tel: [phone] [facility], [address], [place], [place], [address] , tel: [phone] [facility] Essential hypertension 9-201 6 Cizek Xochitl. [address], [place], [place], [address], [place]. tel: [phone] Referring Provider: Xochitl Perez, [address], [place], [address] . tel:[phone] [facility], [address], [place], [place], [address] , [place] tel: [phone] [facility] Essential hypertensionAcute viral conjunctivitis of both eyes Jul-0 4-201 6 Cizek Xochitl. [address], [place], [place], [address], [place]. tel: [phone] Referring Provider: Xochitl Perez, [address], [place], [address] . tel:[phone] [facility], [address], [place], [place], [address] , tel: [phone] [facility] Osteopenia Jun- 0-201 6 Cizek Xochitl. [address], [place], [place], [address], [place]. tel:[phone] [employer] [facility], [address], [place], [place], [address] , [place] tel: [phone] [facility] Right-sided low back pain without sciaticaOsteopeni aEssential hypertension 0 6 Detmer Bety. [address], [place], [place], [address], [place]. tel:[phone] Referring Provider: Xochitl Perez, [address], [place], [address] . tel:[phone] [facility], [address], [place], [place], [address] , [place] tel: [phone] [facility] Routine gynecological examOsteoarthrosi s, Unspecified, Unspecified SiteOsteopeniaEle vated blood pressure (not hypertension)Ceru men impactionAbdomina l painAnxiety state, unspecified 5 Cidawit Leung. [address], [place], [place], [address], [place]. tel:[phone] Referring Provider: Xochitl Perez, [address], [place], [address] . tel:[phone] [facility], [address], [place], [place], [address] , [place] tel: [phone] [facility] IM Elevated blood pressure (not hypertension)Oste oarthrosis, generalized, involving unspecifiedTobacc o useAnxiety state, unspecifiedOsteop eniaCerumen impactionRoutine gynecological exam 3 Cidawit Leung. [address], [place], [place], [address], [place]. tel:[phone] Referring Provider: Xochitl Perez, [address], [place], [address] . tel:[phone] [facility], [address], [place], [place], [address] , tel: [phone] [facility] Urinary tract infection, site not specifiedAcute upper respiratory infections of unspecified siteTobacco use disorder 201 3 Detmer Bety. [address], [place], [place], [address], [place]. tel:[phone] Referring Provider: Xochitl Perez, [address], [place], [address] . tel:[phone] [facility], [address], [place], [place], [address] , tel: [phone] [facility] Osteoarthrosis, generalized, involving unspecified siteAnxiety state, unspecifiedTobacc o use disorderUrinary tract infection, site not specifiedElevated blood pressure reading without diagnosis of hypertension 2 Felicia Leung. [address], [place], [place], [address], [place]. tel:[phone] Referring Provider: Xochitl Perez, [address], [place], [address] . tel:[phone] [facility], [address], [place], [place], [address] , [place] tel: [phone] [facility] Urinary tract infection Mar- 2 Detmer Bety. [address], [place], [place], [address], [place]. 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 [address], [place], [place], [address], [place]. tel:[phone] Referring Provider: Xochitl Perez, [address], [place], [address] . [phone] [facility], [address], [place], [place], [address] , tel: [phone] [facility] IM Shoulder pain, left 201 2 Detmer Bety. [address], [place], [place], [address], [place]. tel:[phone] Referring Provider: Xochitl Perez, [address], [place], [address] . tel:[phone] [facility], [address], [place], [place], [address] , tel: [phone] [facility] Superficial injury of cornea 1 Siri Anthony. [address], [place], [place], [address]. tel:[phone] Referring Provider: Xochitl Perez, [address], [place], [address] . tel:[phone] [facility] [facility], [address], [place], [place], [address] , [place] tel: [phone] [facility] IM Routine gynecological examinationAnxiet y state, unspecifiedOsteoa rthrosis, Unspecified, Unspecified SiteImpacted cerumen 1 Felicia Leung. [address], [place], [place], [address], [place]. tel:[phone] Referring Provider: Xochitl Perez, [address], [place], [address] . tel:[phone] [facility], [address], [place], [place], [address] , [place] tel: [phone] [facility] PAIN IN LIMBREDNESS/DISCH ARGE OF EYE 1 Felicia Leung. [address], [place], [place], [address], [place]. tel:[phone] [employer] [facility], [address], [place], [place], [address] , [place] tel: [phone] [facility] IM TOBACCO USE DISORDER 0 Felicia Leung. [address], [place], [place], [address], [place]. tel:[phone] [employer] [facility], [address], [place], [place], [address] , [place] tel: [facility] ANXIETY STATE NOSROUTINE MEDICAL EXAMSCREEN MAL NEOP-RECTUM Olvin-2 5-200 9 Cizek Xochitl. [address], [place], [place], [address], [place]. tel: [phone] [facility], [address], [place], [place], [address] , tel: [facility] PURE HYPERCHOLESTEROLE M August- 8-200 6 Cizek Xochitl. [address], [place], [place], [address], [place]. tel:[phone] [facility], [address], [place], [place], [address] , tel: [facility] GENERAL OSTEOARTHROSISLON G-TERM USE MEDS NEC Sep-0 1-200 5 Cizek Xochitl. [address], [place], [place], [address], [place]. tel:[phone] [facility], [address], [place], [place], [address] , [place] tel: [facility] [place] OTHER SPECF VACNATION Dec-0 3-200 2 Cizek Xochitl. [address], [place], [place], [address], [place]. tel:[phone] [facility], [address], [place], [place], [address] , [place] tel: [facility] HORMONE REPLACE POSTMENO Sep-2 6-200 0 Cizek Xochitl. [address], [place], [place], [address], [place]. tel:[phone] [facility], [address], [place], [place], [address] , [place] tel: [facility] SCREEN-BLOOD DIS NOS May-0 9-200 0 Cizek Xochitl. [address], [place], [place], [address], [place]. tel:[phone] [facility], [address], [place], [place], [address] , [place] tel:[phone] [facility] SCREEN FOR HYPERTENSION 200 0 Felicia Leung. [address], [place], [place], [address], [place]. tel:[phone] Family History Family Member Type Diagnosis Age At Onset No Information Immunizations Vaccine Date Status Comments Pfizer Comirnaty COVID vaccine, promise-sucrose, 30mcg/0.3mL dose, 12 years and older administered Source: New Immuniza tion Record RSV, bivalent, protein subun it RSVpreF, diluent reconstituted, 0.5 mL, PF administered Source: Other Provider Fluzone High-Dose Trivalent, preservative free administered Source: Other Provid er Fluzone High-Dose, high dose , preservative free administered Source: New Immuniza tion Record Pneumococcal conjugate PCV20 administered Source: New Immunization Record [facility] (Bivalent Booster) COVID Vac, 30mcg/0.3mL, 12+ years administered Source: Other Provid er Fluzone Quad, preservative free, split virus, 0.5mL dosage administered Source: New Immuniza tion Record [facility] (Diluent Reconstitute d) COVID19 Vaccine, 0.3mL per [...] er Payers Payer name Insurance type Covered democrat ID Authoriza tion(s) [employer] [place] [id number] [place] [id number] [employer] [place] [id number] MEDICARE MB [id number] [employer] OPEN ACCESS I II III CI [id number] S01 MEDICARE MB [id number] [employer] OPEN ACCESS I II III CI [id number] [id number] [employer] OPEN ACCESS I II III CI [id number] S01 [employer] OPEN ACCESS I II III CI [id number] S01 [employer] HMO CI [id number] [employer] HMO CI [id number] [employer] HMO CI [id number] [employer] HMO CI [id number] Social History Type Description Quantity Date Captured [...] Xray, Abdomen, 2 Views ordered Referral Ordered: Ashwin Hinson -Pulmonology (related to Other emphysema) ordered Referral Referred To: Ashwin Hinson [address] [facility]
[address] [place], [phone] Ordered: Referrals: Pulmonology. Ashwin Hinson. Evaluation/diagnostic/treatment - Level 3 ordered Referral Referred To: [address] [facility] [address] [place] [address], [phone] Ordered: CT scan of chest with contrast ordered Referral Referred To: [address] [place], [place], [phone] Ordered: Screening mammography of both breasts Appointment date/timeframe: 08/08/2024 ordered Referral Referred To: [address] [place], [place], [phone] Ordered: Colonoscopy, flexible; with biopsy, single or multiple Appointment date/timeframe: 11/05/2022 ordered Referral Referred To: [address] [place], [place], [phone] Ordered: Upper gastrointestinal endoscopy Appointment date/timeframe: 11/05/2022 ordered Referral Referred To: Robert Janneth THOMAS [address] [place], [phone] Ordered: Referrals: Orthopedic Surgery. Robert Lagunas DO. Evaluation/diagnostic/treatment - Level 3 ordered Referral Referred To: [address] [place] [address], [id number] [phone] Ordered: VENECIA (ankle brachial index) ordered Referral Referred To: [address] [place] [address], [id number] [phone] Ordered: Complete Doppler ultrasound of arteries of both lower extremities ordered Referral Ordered: X-RAY EXAM OF KNEES Bilateral ordered Referral Ordered: Complete Doppler ultrasound of renal artery ordered Referral Ordered: Complete duplex scan of renal vessels ordered Referral Ordered: CT of right upper extremity without contrast Right Appointment date/timeframe: 10/09/2020 ordered Referral Referred To: [address] [place] [address], [phone] Ordered: MRI upper extremity oth than jt w/o contr matrl ordered Referral Ordered: X-RAY EXAM OF FOOT Right ordered Referral Referred To: [address] [place] [address], [phone] Ordered: Spot compression mammography of left breast Left breast ordered Referral Referred To: [address] [place] [address], [phone] Ordered: US breast left limited Left breast ordered Referral Referred To: [address] [place] [address], [id number] [phone] Ordered: SCREENING MAMMOGRAM (CAD) Bilateral breast Appointment date/timeframe: 07/19/2019 ordered Referral Referred To: [address] [place] [address], [id number] [phone] Ordered: CT angiography chest w/contrast/noncontrast Appointment date/timeframe: 07/19/2019 ordered Referral Ordered: CT abdomen and pelvis w contrast ordered Referral Referred To: [address] [place] [address]
[address], [phone] Ordered: COLONOSCOPY, Flexible, Proximal To Splenic, Diagnostic, Wor W/O Collection Of Sp Appointment date/timeframe: 06/01/2019 ordered Referral Referred To: [address] [place] [address]
[address], [id number] Ordered: EGD, FLEXIBLE, TRANSORAL, DIAGNOSTIC W/ COLLECTION OF SPECIMEN Appointment date/timeframe: 06/01/2019 ordered Referral Ordered: X-RAY EXAM OF FOOT Left ordered Referral Ordered: Chest Xray, 2 Views ordered Appointment Fara Valencia BOOKED Future Order: Radiology Order Co mplete Doppler ultrasound of renal artery ([id number]), Sent on: Sent Future Order: Radiology Order Co mplete duplex scan of renal vessels ([id number]), Sent on: Sent Future Order: Radiology Order MR I upper extremity oth than jt w/o contr matrl ([id number]), Sent on: Sent History Of Present Illness [...] fill the toilet. She has been using [id number] creams for discomfort, finding some relief. She [...] an ER follow up. She went to [place] [facility] on 04/17/2024 for shortness of breath, [...] OTC medications. Chronic Conditions *See Chronic Conditions [facility] Chronic Conditions [facility] follow up. She went to [place] [facility] on 04/17/2024 for shortness of breath, [...] and above. Chronic Conditions *See Chronic Conditions [facility] Chronic Conditions *See Chronic Conditions [facility] Chronic Conditions *See Chronic Conditions [facility] Chronic Conditions *See Chronic Conditions [facility] Medicare preventive A Health Ris k Assessment [...] changes made. chronic conditions *See Chronic Conditions [facility] Chronic Conditions *See Chronic Conditions [facility] Chronic Conditions *See Chronic Conditions [facility] Chronic Conditions *See Chronic Conditions [facility] Chronic Conditions *See Chronic Conditions [facility] Chronic Conditions *See Chronic Conditions [facility] Chronic Conditions *See Chronic Conditions [facility] Chronic Conditions *See Chronic Conditions [facility] acute visit Chief complaint: knee pain. Saw [...] and updated. Chronic Conditions *See Chronic Conditions [facility] acute visit Chief complaint: diarrhea. Associated symptoms [...] frothy urine. Chronic Conditions *See Chronic Conditions [facility] Chronic Conditions *See Chronic Conditions [facility] Chronic Conditions *See Chronic Conditions [facility] Chronic Conditions *See Chronic Conditions [facility] acute visit Chief complaint: ankle pain. Painful lump and redness around her right ankle. This began 3 days ago. Tender to touch. Very warm to touch. No injury. Taking Tylenol and applying ice. Increased swelling after standing all day at work.Has hypertension. Taking meds. No chest pain or headache. Chronic Conditions *See Chronic Conditions [facility] Chronic Conditions *See Chronic Conditions [facility] Chronic Conditions *See Chronic Conditions [facility] Chronic Conditions *See Chronic Conditions [facility] Chronic Conditions *See Chronic Conditions [facility] Chronic Conditions *See Chronic Conditions [facility] acute visit Chief complaint: right upper arm [...] frothy urine. Chronic Conditions *See Chronic Conditions [facility] Chronic Conditions *See Chronic Conditions [facility] Chronic Conditions *See Chronic Conditions [facility] Chronic Conditions *See Chronic Conditions [facility] Chronic Conditions *See Chronic Conditions [facility] Chronic Conditions *See Chronic Conditions [facility] acute visit Chief complaint: left foot pain. [...] to Bleeding hemorrhoids We will call [facility] results. Let us know if your [...] to LLQ abdominal pain If this happens agai n please call our office.Stop taking meloxicam.Follow [...] iron deficiency anemia type [facility].Use this to help with shortness of breath [...] if not improving. Related to Folliculitis Recommend [place] nasal gel to help with this. Related [...] pressure is el evated in office, to [facility]. Related to Hypertensive chronic kidney disease with [...] chronic kidney disease Doing well. Normal m mer rouge testing. Schedule mammogram. Follow up in 3 [...] emphysema Send for consult notes from alayna o. Related to Pain in left knee As [...] if you stay at home, use hand corset maker and wash your hands frequently. Especially when [...] if you stay at home, use hand corset maker and wash your hands frequently. Especially when [...] if you stay at home, use hand corset maker and wash your hands frequently. Especially when [...] to Essential hypertension Lamisil 250 mg po morteza dillard, #90, 0 rf. Will check the CMP [...] Mental Status Date Cognitive Assessment Orientation - Hemet ed to time, place, person, situation. Patient Care Teams Name Effective Dates (start - stop) Status Members No Information
--- OUTSIDE RECORDS SUMMARY | 2024-11-28 08:15 | XMS_ITS | Continuity of Care Document ---
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 Name Role Phone Yue Bone Unavailable [...] Procedures Procedure Date MED LIST DOCD IN [facility] CBC, INC PLATELETS AND DIFFERENTIAL COMPREHEN METABOLIC PANEL CMP URINALYSIS W MICROSCOPIC (UA) ROUTINE VENIPUNCTURE INTRAVENOUS INFUSION, HYDRATION; INITIAL , 31 MINUT NSALINE 1000CC OFFICE TRQOR-BZI-FBHFLPBY BODY MASS INDEX DOCD SYST BP LT 130 MM HG DIAST BP < 80 MM HG MED LIST DOCD IN [facility] FALL RISK ASSESSMENT DOC'D PRES/ABSN URINE INCON ASSESS BASIC METABOLIC PANEL(BMP) CBC, INC PLATELETS AND DIFFERENTIAL LIPID PANEL ROUTINE VENIPUNCTURE OFFICE DAIED-QFZ-DDLFVDET PPPS, subseq visit BODY MASS INDEX DOCD SYST BP LT 130 MM HG DIAST BP 80-89 MM HG MED LIST DOCD IN RD URINALYSIS W MICROSCOPIC (UA) ROUTINE VENIPUNCTURE OFFICE XCLIQ-OXI-ZEIKWJCJ BODY MASS INDEX DOCD SYST BP GE 130 - 139MM HG DIAST BP 80-89 MM HG Removal Impacted Cerumen Irrigation/Lava ge, Unilateral MED LIST DOCD IN RD CBC, INC PLATELETS AND DIFFERENTIAL COMPREHEN METABOLIC PANEL [facility] ROUTINE VENIPUNCTURE OFFICE OKQYC-PCW-DNCEMQYN BODY MASS INDEX DOCD SYST BP LT 130 MM HG DIAST BP < 80 MM HG BASIC METABOLIC PANEL(BMP) CBC, INC PLATELETS AND DIFFERENTIAL ROUTINE VENIPUNCTURE OFFICE FCMEA-WXM-PEKTIVRL BODY MASS INDEX DOCD SYST BP LT 130 MM HG DIAST BP < 80 MM HG Chest Xray, 2 Views OFFICE NBRIP-FNT-AAAGEXCD BODY MASS INDEX DOCD SYST BP LT 130 MM HG DIAST BP < 80 MM HG CBC, INC PLATELETS AND DIFFERENTIAL COMPREHEN METABOLIC PANEL CMP LIPID PANEL VITAMIN D, 25-HYDROXY ROUTINE VENIPUNCTURE OFFICE SYOYZ-YNQ-GILWQYSD BODY MASS INDEX DOCD SYST BP LT 130 MM HG DIAST BP < 80 MM HG REMOVAL IMPACTED CERUMEN REQUIRING INSTR UMENTATION Covid Vaccine Admin, Single Dose 2023 Pfizer Comirnatjudd tri-sucrose COVID Vacci ne 30 mcg/ OFFICE NFTAI-CEO-OGXXMJDM BODY MASS INDEX DOCD SYST BP >= 140 MM HG6 IT DIAST BP >= 90 MM HG EKG (ELECTROCARDIOGRAM) OFFICE TCQOW-JTX-QFDWXLJN BODY MASS INDEX DOCD SYST BP >= 140 MM HG6 IT DIAST BP >= 90 MM HG BASIC METABOLIC PANEL(BMP) CBC, INC PLATELETS AND DIFFERENTIAL SARS-CoV-2/Flu/RSV (all targets) 2023 THYROID STIMULATION HORMONE(TSH) 2023 URINALYSIS W MICROSCOPIC (UA) ROUTINE VENIPUNCTURE OFFICE DRYME-JAL-SJGBKFIH BODY MASS INDEX DOCD SYST BP LT 130 MM HG DIAST BP 80-89 MM HG OFFICE IXDHN-UCR-CGWLUHHN PPPS, subseq visit BODY MASS INDEX DOCD SYST BP LT 130 MM HG DIAST BP 80-89 MM HG URINALYSIS, REFLEX (UA) NSALINE 1000CC INTRAVENOUS INFUSION, HYDRATION; INITIAL , 31 MINUT INTRAVENOUS INFUSION, HYDRATION; EACH AD DITIONAL H OFFICE KZNXW-DZB-MHGTNSFU SYST BP LT 130 MM HG DIAST BP < 80 MM HG FALL RISK ASSESSMENT DOC'D PRES/ABSN URINE INCON ASSESS Clin depression screen doc CBC, INC PLATELETS AND DIFFERENTIAL COMPREHEN METABOLIC PANEL CMP FERRITIN LEVEL ROUTINE VENIPUNCTURE NSALINE 1000CC INTRAVENOUS INFUSION, HYDRATION; INITIAL , 31 MINUT OFFICE FVTAH-YXT-OHIGUXLY SYST BP LT 130 MM HG DIAST BP < 80 MM HG CBC, INC PLATELETS AND DIFFERENTIAL FERRITIN LEVEL ROUTINE VENIPUNCTURE OFFICE BMVQF-BOK-RYXWRMBF SYST BP >= 140 MM HG6 IT DIAST BP 80-89 MM HG BASIC METABOLIC PANEL(BMP) CBC, INC PLATELETS AND DIFFERENTIAL ROUTINE VENIPUNCTURE Transitional Care- First 7 Days Of Disch arge SYST BP >= 140 MM HG6 IT DIAST BP < 80 MM HG DSCHRG MED/CURRENT MED MERGE BASIC METABOLIC PANEL(BMP) CBC, INC PLATELETS AND DIFFERENTIAL FERRITIN LEVEL VITAMIN D, 25-HYDROXY ROUTINE VENIPUNCTURE OFFICE DBEMB-SHN-VQWQIFZS SYST BP LT 130 MM HG DIAST BP < 80 MM HG EKG (ELECTROCARDIOGRAM) PULSE OXIMETRY, MULTIPLE Admin influenza virus vac FLU VACC PRSV FREE INC ANTIG OFFICE DPKHQ-XIW-DLIZHYIA SYST BP LT 130 MM HG DIAST BP >= 90 MM HG Chest Xray, 2 Views OFFICE IHXPV-HFI-UVSXPNVO SYST BP GE 130 - 139MM HG DIAST BP < 80 MM HG OFFICE SKMFW-ZXE-NMHBWVVZ SYST BP >= 140 MM HG6 IT [...] MEDICARE Pneumococcal Conjugate Vaccine (PCV20) J OFFICE WAFDK-IOS-TSUYNVFG SYST BP LT 130 MM HG DIAST BP < 80 MM HG INIT PREVENT PHYS EXAM; LIMITED TO NEW B ENEFICIARY BASIC METABOLIC PANEL(BMP) CBC, INC PLATELETS AND DIFFERENTIAL ROUTINE VENIPUNCTURE INTRAVENOUS INFUSION, HYDRATION; INITIAL , 31 MINUT NSALINE 1000CC OFFICE NWULP-LDQ-EOLCBEPM SYST BP LT 130 MM HG DIAST BP < 80 MM HG DXA BONE DENSITY, AXIAL SCREENING MAMMOGRAM (CAD) Screening Digital Breast Tomosynthesis M OFFICE TEFOS-XAO-OHTOFGMZ BASIC METABOLIC PANEL(BMP) ROUTINE VENIPUNCTURE X-RAY EXAM OF LUMBAR SPINE, A/P & LAT De KENALOG 10 MG KENALOG 10 MG ASP/INJ MAJOR JOINTOR BURSA, SHOULDER, H IP,KNEE W/O US GUIDANCE OFFICE IAOCY-CLF-ZSRTNITY IMMUN ADMIN (INC PERCUTANEOUS) SINGLE, F IRST INJ FLU VAC NO PRSV 4 IVA, 0.5mL DOSAGE OFFICE EDGIZ-UQH-QTLYXGIN DUPLEX SCAN OF ABD, PELV, SCROT, COMPLET E ULTRASOUND RETROPERITONEAL ( AORTA, RENAL, NODES) REAL TIME W/ DOCUMENTATION, CO DUPLEX SCAN LOWER EXTREMITY EXTREMITY STUDY/BILATERAL (VENECIA) 022 OFFICE KUDRZ-QYU-GZFDWNEO BASIC METABOLIC PANEL(BMP) ROUTINE VENIPUNCTURE OFFICE ZYHPZ-URE-AYQXCPND BASIC METABOLIC PANEL(BMP) ROUTINE VENIPUNCTURE BP OFFICE/OUTPATIENT VISIT EST OFFICE QBKIN-VUR-GPOBAZZQ CBC, INC PLATELETS AND DIFFERENTIAL COMPREHEN METABOLIC PANEL CMP ROUTINE VENIPUNCTURE INTRAVENOUS INFUSION, HYDRATION; INITIAL , 31 MINUT NSALINE 1000CC BASIC METABOLIC PANEL(BMP) ROUTINE VENIPUNCTURE OFFICE PPAIK-UAU-IRYQHQSO KENALOG 10 MG KENALOG 10 MG ASP/INJ MAJOR JOINTOR BURSA, SHOULDER, H IP,KNEE W/O US GUIDANCE X-RAY EXAM OF KNEES OFFICE VLRNT-ASY-HSMGDRCF BASIC METABOLIC PANEL(BMP) ROUTINE VENIPUNCTURE OFFICE WZETC-OMU-NNKHIDOP BASIC METABOLIC PANEL(BMP) ROUTINE VENIPUNCTURE IMMUN ADMIN (INC PERCUTANEOUS) SINGLE, F IRST INJ FLU VACC PRSV FREE INC ANTIG OFFICE GLHYW-RSD-SBURVAPT BASIC METABOLIC PANEL(BMP) ROUTINE VENIPUNCTURE OFFICE UYVXH-GUC-MIXVPOMO OFFICE OKDQM-GEG-JURIQCJL OFFICE BJNXK-VII-BZAYQZOC BASIC METABOLIC PANEL(BMP) PARATHYROID HORMONE (PTH) URIC ACID, (S) VITAMIN D, 25-HYDROXY ROUTINE VENIPUNCTURE OFFICE JGQDW-NLK-XMNAJBGU IMMUN ADMIN (INC PERCUTANEOUS) SINGLE, F IRST [...] DISCUSSION BASIC METABOLIC PANEL(BMP) ROUTINE VENIPUNCTURE OFFICE EGHKL-HOE-GUSOYPRZ CT ABD&PELV 1+ SECTION/REGNS LOW OSMOLAR CONTRAST (300 TO 399 MG IODI NE) TISSUE EXAM BY PATHOLOGIST SCREENING COLONOSCOPY (NOT HIGH RISK) Ja UPPER GI ENDOSCOPY BIOPSY CBC, INC PLATELETS AND DIFFERENTIAL COMPREHEN METABOLIC PANEL [facility] 9 URINALYSIS, REFLEX (UA) ROUTINE VENIPUNCTURE OFFICE JDJPS-BRV-NUKETWII FERRITIN LEVEL COMPREHEN METABOLIC PANEL [facility] 9 ROUTINE VENIPUNCTURE OFFICE ESWJP-EFR-DCGPEHCM X-RAY EXAM OF FOOT OFFICE OFBTQ-MLX-HQYZPUSI Results Test Name Date and Time Measure [...] MCH 13:51:55 30.6 pg 27.0-33.0 Final Performed by:[employer]- () MCHC 13:51:55 31.7 g/dL 32.0-36.0 L Final Performed by:[employer]-Amy () RDW 13:51:55 13.7 % 11.0-15.0 Final Performed by:VAMSHI-Amy () PLT 13:51:55 396 K/uL 150-400 Final Performed by:[employer] () MPV 13:51:55 9.4 fL 6.0-12.0 Final Performed by:[employer] () IG # 13:51:55 0.47 K/uL 0.00-0.05 H Final Performed by:[employer] () IG % 13:51:55 1.4 % 0.0-0.9 H Final Performed by:[employer] () Neut # 13:51:55 29.14 K/uL 1.50-7.80 HH Final Performed by:[employer] () Neut % 13:51:55 85.7 % 40.0-75.0 H Final Performed by:[employer]- () Lym # 13:51:55 1.90 K/uL 0.85-3.90 Final Performed by:[employer]-Amy (532) Lym % 13:51:55 5.6 % 16.0-46.0 L Final Performed by:[employer]- (532) [place] # 13:51:55 2.39 K/uL 0.20-1.10 H Final Performed by:TOS-95 (532) [place] % 13:51:55 7.0 % 0.0-12.0 Final Performed by:TOS-Amy (532) Eos # 13:51:55 0.02 K/uL 0.02-0.50 Final Performed by:TOS-95 (532) Eos % 13:51:55 0.1 % 0.0-7.0 Final Performed by:TOS-95 (532) Baso # 13:51:55 0.08 K/uL 0.00-0.20 Final Performed by:TOS-95 (532) Baso % 13:51:55 0.2 % 0.0-2.0 Final Performed by:[employer]my (532) NRBC # 13:51:55 0.000 K/uL 0.000-0.012 Final Performed by:[employer] (532) NRBC % 13:51:55 0.0 % 0.0-0.2 Final Performed by:TOS-Amy (532) WBC Comm 13:51:55 WBC Count Verified by Smear Review. WBC Differential Verified by Smear Review. Final Performed by:TOS-95 (532) RBC Morph 13:51:55 Normal Normal Final Performed by:TOS-95 (532) RBC Comm 13:51:55 Normal Normal Final Performed by:[facility] (532) Plt Est 13:51:55 Normal Normal Final Performed by:[facility] (532) Hem Comm 13:51:55 Slide Reviewed Final Performed by:[facility] (532) Panel Description: Comprehensive Metabolic Nury l Sodium 13:51:55 131 mmol/L 135-145 L Final Performed by:TOS-95 (532) Potassium 13:51:55 3.3 mmol/L 3.5-5.3 L Final Performed by:[facility] (532) Chloride 13:51:55 99 mmol/L 98-107 Final Performed by:[facility] (532) CO2 13:51:55 19 mEq/L 19-30 Final Performed by:[facility] (532) Glucose 13:51:55 104 mg/dL 65-99 H Final Performed by:[employer]-95 (532) BUN 13:51:55 22 mg/dL 9-20 H Final Performed by:[facility] (532) Creatinine 13:51:55 1.19 mg/dL 0.60-1.10 H Final Performed by:[facility] (532) BUN/Crea 13:51:55 18 Ratio 6-25 Final Performed by:[facility] (532) Calcium 13:51:55 8.8 mg/dL 8.6-10.4 Final Performed by:[facility] (532) Albumin 13:51:55 2.9 g/dL 3.5-5.1 L Final Performed by:[facility] (532) Protein, T 13:51:55 6.3 g/dL 6.3-8.4 Final Performed by:[facility] (532) Globulin 13:51:55 3.4 Calc 1.4-3.7 Final Performed by:[facility] (532) A/G 13:51:55 0.9 Ratio 0.8-2.0 Final Performed by:[facility] (532) Bilirubin, T 13:51:55 0.8 mg/dL 0.2-1.3 Final Performed by:[facility] (532) Alk Phos 13:51:55 186 U/L 38-126 H Final Performed by:[facility] (532) ALT 13:51:55 68 U/L 0-32 H Final Performed by:[facility] (532) AST 13:51:55 56 U/L 10-36 H Final Performed by:[facility] (532) eGFR 13:51:55 50 mL/min/ 1.73m2 >60 L Final CKD-EPI Equation (2020)Perfo rmed by:[employer]-95 (532) Panel Description: UA Complete/Reflex to Culture Final Color 13:51:55 YELLOW Colorless - Yellow Final Performed by:[employer] [facility]-95 (532) Appear 13:51:55 SL CLOUDY Clear A Final Performed by:[facility] (532) Glucose(U) 13:51:55 NEGATIVE Negative Final Performed by:[facility] (532) Bili (U) 13:51:55 NEGATIVE Negative Final Performed by:[facility] (532) Ketone 13:51:55 NEGATIVE Negative Final Performed by:[facility] (532) Spec Gr 13:51:55 1.014 1.005-1.035 Final Performed by:[facility] (532) Blood (U) 13:51:55 NEGATIVE Negative Final Performed by:[facility] (532) pH 13:51:55 6.0 5.0-8.0 Final Performed by:[facility] (532) Protein(U) 13:51:55 1+ Negative A Final Performed by:[facility] (532) Urobilin 13:51:55 NORMAL mg/dL 0.2-1.0 Final Performed by:[facility] (532) Nitrite 13:51:55 NEGATIVE Negative Final Performed by:[facility] (532) Leukocyte 13:51:55 NEGATIVE Negative Final Performed by:[facility] (532) WBC(U) 13:51:55 0-5 0-5 /hpf Final Performed by:[facility] (532) RBC(U) 13:51:55 None Seen 0-2 /hpf Final Performed by:[facility] (532) Epith Cell 13:51:55 Many None Seen A Final Performed by:[facility] (532) Bacteria 13:51:55 1+ None Seen A Final Performed by:[facility] (532) Mucus 13:51:55 Trace None Seen A Final Performed by:[facility] (532) Urine Culture 13:51:55 Not Required Final Performed by:[employer] [facility]my (532) Panel Description: CBC W Auto Differential panel - Blood Final WBC 13:51:55 34.00 K/uL 3.80-10.80 H Final Performed by:VAMSHI-Amy (532) RBC 13:51:55 3.24 M/uL 3.80-5.10 L Final Performed by:[employer] [facility] (532) HGB 13:51:55 9.9 g/dL 11.7-15.5 L Final Performed by:[employer] [facility] (532) HCT 13:51:55 31.2 % 35.0-45.0 L Final Performed by:[employer] [facility] (532) MCV 13:51:55 96.3 fL 80.0-100.0 Final Performed by:SUELLEN () MCH 13:51:55 30.6 pg 27.0-33.0 Final Performed by:Chinese OnlineReynoldAmy (MemfoACT) MCHC 13:51:55 31.7 g/dL 32.0-36.0 L Final Performed by:[facility] OnlineCorina ([employer]) RDW 13:51:55 13.7 % 11.0-15.0 Final Performed by:Chinese OnlineReynoldAmy (532) PLT 13:51:55 396 K/uL 150-400 Final Performed by:[facility] ([employer]) MPV 13:51:55 9.4 fL 6.0-12.0 Final Performed by:milogAmy (MemfoACT) IG # 13:51:55 0.47 K/uL 0.00-0.05 H Final Performed by:[facility] (532) IG % 13:51:55 1.4 % 0.0-0.9 H Final Performed by:Chinese OnlineReynoldAmy (532) Neut # 13:51:55 29.14 K/uL 1.50-7.80 HH Final Performed by:[employer] (532) Neut % 13:51:55 85.7 % 40.0-75.0 H Final Performed by:[facility] (532) Lym # 13:51:55 1.90 K/uL 0.85-3.90 Final Performed by:[employer]-95 (532) Lym % 13:51:55 5.6 % 16.0-46.0 L Final Performed by:[facility] (532) [place] # 13:51:55 2.39 K/uL 0.20-1.10 H Final Performed by:[facility] (532) [place] % 13:51:55 7.0 % 0.0-12.0 Final Performed by:[facility] (532) Eos # 13:51:55 0.02 K/uL 0.02-0.50 Final Performed by:[employer] [facility]-Amy (532) Eos % 13:51:55 0.1 % 0.0-7.0 Final Performed by:[facility] (532) Baso # 13:51:55 0.08 K/uL 0.00-0.20 Final Performed by:[facility] (532) Baso % 13:51:55 0.2 % 0.0-2.0 Final Performed by:[facility] (532) NRBC # 13:51:55 0.000 K/uL 0.000-0.012 Final Performed by:[facility] (532) NRBC % 13:51:55 0.0 % 0.0-0.2 Final Performed by:[facility] (532) WBC Comm 13:51:55 WBC Count Verified by Smear Review. WBC Differential Verified by Smear Review. Final Performed by:[facility] (532) RBC Morph 13:51:55 Normal Normal Final Performed by:[facility] (532) RBC Comm 13:51:55 Normal Normal Final Performed by:[facility] (532) Plt Est 13:51:55 Normal Normal Final Performed by:[facility] (532) Hem Comm 13:51:55 Slide Reviewed Final [...] Date Provider Providers Copied on Encounter OFFICE RWDLL-OCX-EMK [facility], [address] [facility], [place], [place], [address] , tel: [phone] [facility] acute visit (chief complaint) Other fatigueCOVID-19Sy mptomatic hypotensionBleedi ng hemorrhoids 5 Chadwick Turner. [address], [place], [place], [address], . [phone] Referring Provider: Xochitl Perez, [address], [place], [address] . tel:[phone] [facility], [address], [place], [place], [address] , tel:[phone] [facility] No Information 5 Felicia Leung. [address], [place], [place], [address], [place]. [phone] [facility], [address], [place], [place], [address] , tel:[phone] [facility] No Information 5 Felicia Leung. [address], [place], [place], [address], . tel:[phone] OFFICE GICQZ-MHN-HDH [facility], [address], [place], [place], [address] , tel:[phone] [facility] Chronic Conditions (chief complaint) Hypertensive chronic kidney disease with stage 1 through stage 4 chronic kidney disease, or unspecified chronic kidney diseaseStage 3a chronic kidney diseaseBilateral primary osteoarthritis of kneeOther emphysemaAtherosc lerosis of aortaIron deficiency anemia, unspecified iron deficiency anemia typeThoracic aortic aneurysm, without rupture, unspecifiedGenera lized osteoarthritisMed icare annual wellness visit, subsequentUrinary frequency 5 Felicia Leung. [address], [place], [place], [address], [place]. tel:[phone] Referring Provider: Xochitl Perez, [address], [place], [address] . tel:[phone] [facility], [address], [place], [place], [address] , tel:[phone] [facility] No Information 5 Felicia Leung. [address], [place], [place], [address], [place]. tel:[phone] [email or web address], [address], [place], [place], [address] , [place] tel:[phone] [facility] IM Encounter for screening for malignant neoplasm of colon 5 Felicia Leung. [address], [place], [place], [address], [place]. tel:[phone] OFFICE LMZKG-UCF-YZU RENETTA [facility], [address], [place], [place], [address] , tel:[phone] [facility] [...] colon 5 Chadwick Turner. [address], [place], [place], [address], [place]. tel:[phone] Referring Provider: Xochitl Perez, [address], [place], [address] . [phone] [facility], [address], [place], [place], [address] , tel: [phone] [facility] No Information 5 Felicia Leung. [address], [place], [place], [address], [place]. tel:[phone] OFFICE ZALOT-JHT-MUU RENETTA [facility], [address], [place], [place], [address] , tel: [phone] [facility] acute visit (chief complaint)C hronic Conditions (chief complaint) LLQ abdominal painChange in stoolRectal fissureCoughing up bloodHypertensive chronic kidney disease with stage 1 through stage 4 chronic kidney disease, or unspecified chronic kidney diseaseStage 3a chronic kidney diseaseRight lower lobe lung massBilateral primary osteoarthritis of knee Jul- 5 Chadwick Turner. [address], [place], [place], [address], . tel:[phone] Referring Provider: Xochitl Perez, [address], [place], [address] . tel:[phone] [facility], [address] [facility], [place], [place], [address] , tel: [phone] [facility] No Information 5 [employer]. [address] [facility], [address], [place], [place], [facility], . tel:[phone] [facility], [address], [place], [place], [address] , tel: [phone] [facility] Other emphysema 5 Felicia Leung. [address], [place], [place], [address], [place]. tel:[phone] [facility], [address], [place], [place], [address] , tel: [phone] [facility] No Information 5 Felicia Leung. [address], [place], [place], [address], [place]. tel:[phone] [facility], [address], [place], [place], [address] , tel: [phone] [facility] No Information 5 Felicia Leung. [address], [place], [place], [address], [place]. tel:[phone] OFFICE OVZPG-JHW-NAA [facility], [address], [place], [place], [address] , [place] tel: [phone] [facility] [...] knee 5 Felicia Leung. [address], [place], [place], [address], [place]. tel:[phone] Referring Provider: Xochitl Perez, [address], [place], [address] . tel:[phone] OFFICE EJNRO-GFW-DNH [facility], [address], [place], [place], [address] , [place] tel: [phone] [facility] acute visit (chief complaint)C hronic Conditions (chief complaint) Acute pneumoniaEssentia l (primary) hypertensionOther emphysema 5 Chadwick Turner. [address], [place], [place], [address], [place]. tel:[phone] Referring Provider: Xochitl Perez, [address], [place], [address] . tel:[phone] OFFICE LEMNG-ETX-XYI [facility], [address], [place], [place], [address] , tel:[phone] [facility] Chronic Conditions (chief complaint) Stage 3a chronic kidney diseaseHypertensi ve chronic kidney disease with stage 1 through stage 4 chronic kidney disease, or unspecified chronic kidney diseaseAtheroscle rosis of aortaOther emphysemaIron deficiency anemia, unspecified iron deficiency anemia typeActinic keratosisImpacted cerumen of both earsVaginal drynessScreening mammogram for breast cancer 4 [employer]. [address] [facility], [address], [place], [place], [facility], . tel:[phone] Referring Provider: Xochitl Perez, [address], [place], [address] . tel:[phone] [employer] [facility], [address], [place], [place], [address] , tel: [phone] [facility] No Information 4 Felicia Leung. [address], [place], [place], [address], [place]. tel:[phone] [employer], [address], [place], [place], [address] , tel: [phone] [facility] No Information 4 Felicia Leung. [address], [place], [place], [address], . tel:[phone] OFFICE OLCRS-ZXQ-UEM [facility] [employer], [address], [place], [place], [address] , tel: [phone] [facility] Chronic Conditions (chief complaint) Hypertensive chronic kidney disease with stage 1 through stage 4 chronic kidney disease, or unspecified chronic kidney diseaseStage 3a chronic kidney diseaseFolliculit isNasal sore 4 [employer]. [address] [facility], [address], [place], [place], [facility], . tel:[phone] Referring Provider: Xochitl Perez, [address], [place], [address] . tel:[phone] OFFICE STESD-MSQ-UKW [facility] [employer], [address], [place], [place], [address] , tel: [phone] [facility] Hypertensive chronic kidney disease with stage 1 through stage 4 chronic kidney disease, or unspecified chronic kidney diseaseStage 3a chronic kidney disease 4 [employer]. [address] [facility], [address], [place], [facility], . tel:[phone] Referring Provider: Xochitl Perez, [address], [place], [address] . tel:[phone] OFFICE USICT-WBB-VOX [facility], [address], [place], [place], [address] , tel: [phone] [facility] Chronic Conditions (chief complaint) Hypertensive chronic kidney disease with stage 1 through stage 4 chronic kidney disease, or unspecified chronic kidney diseaseStage 3a chronic kidney diseaseAcute cystitis without hematuriaFatigue, unspecified typeSymptoms of upper respiratory infection (URI)Intermittent constipation 4 [employer]. [address] [facility], [address], [place], [place], [facility], . tel:[phone] Referring Provider: Xochitl Perez, [address], [place], [address] . tel:[phone] OFFICE HNTFD-YCI-TRS [facility], [address], [place], [place], [address] , tel: [phone] [facility] Medicare preventive (chief complaint)M edicare preventive (chief complaint)C hronic Conditions (chief complaint) Hypertensive chronic kidney disease with stage 1 through stage 4 chronic kidney disease, or unspecified chronic kidney diseaseStage 3a chronic kidney diseaseMedicare annual wellness visit, subsequentAtheros clerosis of aortaThoracic aortic aneurysm, without rupture, unspecifiedOsteop enia of multiple sitesAcute cystitis without hematuria [address], [place], [place], [id number], . tel:[phone] Referring Provider: Xochitl Perez, [address], [place], [address] . tel:[phone] OFFICE [id number]-[id number]-RLR [facility], [address], [place], [place], [id number] , tel: [phone] [facility] Chronic Conditions (chief complaint)c hronic conditions (chief complaint) Hypotension, unspecified hypotension typeHypertensive chronic kidney disease with stage 1 through stage 4 chronic kidney disease, or unspecified chronic kidney diseaseStage 3a chronic kidney diseaseUrinary frequencyAbnormal urinalysis 4 Cizek Xochitl. [address], [place], [place], [address], . tel:[phone] Referring Provider: Xochitl Perez, [address], [place], [address] . tel:[phone] OFFICE VPOYB-OYI-TDH [facility], [address], [place], [place], [address] , tel: [phone] [facility] IM Chronic Conditions (chief complaint) Hypertensive chronic kidney disease with stage 1 through stage 4 chronic kidney disease, or unspecified chronic kidney diseaseStage 3a chronic kidney diseaseOther emphysemaIron deficiency anemia, unspecified iron deficiency anemia typeHypotension, unspecified hypotension type 4 Cizek Xochitl. [address], [place], [place], [address], . [phone] Referring Provider: Xochitl Perez, [address], [place], [address] . tel:[phone] [facility], [address], [place], [place], [address] , tel: [phone] [facility] No Information 4 Cizek Xochitl. [address], [place], [place], [address], [place]. tel:[phone] [facility], [address], [place], [place], [address] , tel:[phone] [facility] Urinary frequency 4 Cizek Xochitl. [address], [place], [place], [address], . tel:[phone] OFFICE NGDCE-IVZ-VLL [facility], [address], [place], [place], [address] , tel: [phone] [facility] Chronic Conditions (chief complaint) Hypertensive chronic kidney disease with stage 1 through stage 4 chronic kidney disease, or unspecified chronic kidney diseaseStage 3a chronic kidney diseaseOther emphysemaIron deficiency anemia, unspecified iron deficiency anemia type 4 Felicia Leung. [address], [place], [place], [address], . [phone] Referring Provider: Xochitl Perez, [address], [place], [address] . tel:[phone] Transitional Care- First 7 Days Of Discharge [facility], [address], [place], [place], [address] , tel: [phone] [facility] Chronic Conditions (chief complaint) Hypertensive chronic kidney disease with stage 1 through stage 4 chronic kidney disease, or unspecified chronic kidney diseaseStage 3a chronic kidney diseaseAcute cystitis without hematuriaHyponatr emiaHypokalemiaLe ukocytosis, unspecified type 4 Felicia Leung. [address], [place], [place], [address], . [phone] Referring Provider: Xochitl Perez, [address], [place], [address] . tel:[phone] [facility], [address], [place], [place], [address] , tel:[phone] [facility] IM No Information 4 Felicia Leung. [address], [place], [place], [address], . [phone] Referring Provider: Xochitl Perez, [address], [place], [address] . tel:[phone] OFFICE LBITJ-FCZ-XLQ RENETTA [facility], [address], [place], [place], [address] , tel:[phone] [facility] Chronic Conditions (chief complaint) Hypertensive chronic kidney disease with stage 1 through stage 4 chronic kidney disease, or unspecified chronic kidney diseaseStage 3a chronic kidney diseaseBilateral primary osteoarthritis of kneeIron deficiency anemia, unspecified iron deficiency anemia typeOther emphysemaEssentia l (primary) hypertension 3 Felicia Leung. [address], [place], [place], [address], . tel:[phone] Referring Provider: Xochitl Perez, [address], [place], [address] . tel:[phone] OFFICE MNEFT-LIQ-JUP [facility], [address], [place], [place], [address] , tel: [phone] [facility] Chronic Conditions (chief complaint) Other emphysemaHyperten sive chronic kidney disease with stage 1 through stage 4 chronic kidney disease, or unspecified chronic kidney diseaseStage 3a chronic kidney diseaseBilateral primary osteoarthritis of kneeHypoxia 3 Felicia Leung. [address], [place], [place], [address], . tel:[phone] Referring Provider: Xochitl Perez, [address], [place], [address] . tel:[phone] OFFICE JARBA-XNK-BQS [facility], [address], [place], [place], [address] , tel:[phone] [facility] Chronic Conditions (chief complaint) Other emphysemaHypoxiaP ain in left knee 3 Felicia Leung. [address], [place], [place], [address], [place]. tel:[phone] Referring Provider: Xochitl Perez, [address], [place], [address] . tel:[phone] OFFICE YDHND-USD-KLR [facility], [address], [place], [place], [address] , tel: [phone] [facility] IM acute visit (chief complaint) Hypertensive chronic kidney disease with stage 1 through stage 4 chronic kidney disease, or unspecified chronic kidney diseaseStage 3a chronic kidney diseasePain in left kneePain in right kneeGastroesophag eal reflux disease with esophagitis without hemorrhage 3 Nohemi Mckeon. [address], [place], [place], [address], [place]. [phone] Referring Provider: Xochitl Perez, [address], [place], [address] . tel:[phone] [facility], [address], [place], [place], [address] , [place] tel:[phone] [facility] No Information 3 Km Stokes. [address] [facility], [address] [address], [place], [place], [address], [place]. tel:[phone] Referring Provider: Xochitl Perez, [address], [place], [address] . tel:[phone] [email or web address], [address], [place], [place], [address] , [place] tel:[phone] [facility] No Information 3 Maikel Stein. [address], [place], [facility], [place]. tel:[phone] Referring Provider: Xochitl Perez, [address], [place], [address] . tel:[phone] [employer], [address], [place], [place], [address] , [place] tel:[phone] [facility] Iron deficiency anemia, unspecified iron deficiency anemia type 3 Felicia Leung. [address], [place], [place], [address], [place]. [phone] OFFICE ABKWM-WLD-ZYO RENETTA [facility], [address], [place], [place], [address] , [place] tel: [phone] [facility] Medicare preventive (chief complaint)C hronic Conditions (chief complaint) Hypertensive chronic kidney disease with stage 1 through stage 4 chronic kidney disease, or unspecified chronic kidney diseaseStage 3a chronic kidney diseaseOther emphysemaAtherosc lerosis of aortaSenile purpuraMedicare annual wellness visit, subsequentOsteope river of multiple sitesAnemia, unspecified typeRight wrist fracture, sequelaImpacted cerumen, bilateralMild cognitive impairment 3 Felicia Leung. [address], [place], [place], [address], [place]. tel:[phone] Referring Provider: Xochitl Perez, [address], [place], [address] . tel:[phone] OFFICE YTBQS-CKQ-MSQ [email or web address], [address], [place], [place], [address] , [place] tel:[phone] [facility] acute visit (chief complaint) Diarrhea, unspecified typeHypertensive chronic kidney disease with stage 1 through stage 4 chronic kidney disease, or unspecified chronic kidney diseaseStage 3a chronic kidney disease 3 Nohemi Mckeon. [address], [place], [place], [address], [place]. tel:[phone] Referring Provider: Xochitl Perez, [address], [place], [address] . tel:[phone] [email or web address], [address], [place], [place], [address] , [place] tel:[phone] [facility] No Information 3 Felicia Lindsay. [address] [place] [address], [address], . tel:[phone] Referring Provider: Xochitl Perez, [address], [place], [address] . tel:[phone] OFFICE OOSGJ-FYO-BVW [email or web address], [address], [place], [place], [address] , [place] [phone] [facility] Chronic Conditions (chief complaint) Hypertensive chronic kidney disease with stage 1 through stage 4 chronic kidney disease, or unspecified chronic kidney diseaseStage 3a chronic kidney diseasePeripheral vascular diseaseAtheroscle rosis of aortaOther emphysema Feb-0 3 Felicia Leung. [address], [place], [place], [address], [place]. tel:[phone] Referring Provider: Xochitl Perez, [address], [place], [address] . tel:[phone] OFFICE YRGZF-GEG-GDJ RENETTA, [address], [place], [place], [address] , tel: [phone] [facility] Chronic Conditions (chief complaint) Hypertensive chronic kidney disease with stage 1 through stage 4 chronic kidney disease, or unspecified chronic kidney diseaseStage 3a chronic kidney diseasePain in right kneePain in left kneeOther chronic painLumbar radiculopathy 2 Cizek Xochitl. [address], [place], [place], [address], . [phone] Referring Provider: Xochitl Perez, [address], [place], [address] . [phone] [facility], [address], [place], [place], [address] , tel:[phone] [facility] No Information 2 Bridgetzemarilyn Leung. [address], [place], [place], [address], . tel:[phone] Referring Provider: Xochitl Perez, [address], [place], [address] . tel:[phone] OFFICE KXTIS-XSD-KHT AND, [address], [place], [place], [address] , tel:[phone] [facility] Chronic Conditions (chief complaint) Hypertensive chronic kidney disease with stage 1 through stage 4 chronic kidney disease, or unspecified chronic kidney diseaseStage 3a chronic kidney diseaseLumbar radiculopathy 2 Cizek Xochitl. [address], [place], [place], [address], . tel:[phone] Referring Provider: Xochitl Perez, [address], [place], [address] . tel:[phone] [facility], [address], [place], [place], [address] , tel:[phone] [facility] No Information 2 Brenna Stokes. [address], [place], [place], [address], [place]. tel:[phone] Referring Provider: Garfield Basilio, [address] [facility] [address], [place], [address]. tel:[phone] [facility], [address], [place], [place], [address] , [place] tel:[phone] [facility] No Information 2 Jaleel Jones. [address], [place], [place], [address], [place]. tel:[phone] Referring Provider: Xochitl Perez, [address], [place], [address] . tel:[phone] OFFICE YHWGG-LVR-GLG [facility], [address], [place], [place], [address] , [place] tel:[phone] [facility] Hypertensive chronic kidney disease with stage 1 through stage 4 chronic kidney disease, or unspecified chronic kidney diseaseStage 3a chronic kidney diseaseAtheroscle rosis of aortaPeripheral vascular disease 2 Felicia Leung. [address], [place], [place], [address], [place]. tel:[phone] Referring Provider: Xochitl Perez, [address], [place], [address] . tel:[phone] OFFICE EUUMX-UTU-VQO [facility], [address], [place], [place], [address] , [place] [phone] [facility] acute visit (chief complaint) Superficial phlebitisBenign essential hypertension 2 Nohemi Mckeon. [address], [place], [place], [address], [place]. tel:[phone] Referring Provider: Xochitl Perez, [address], [place], [address] . tel:[phone] BP OFFICE/OUTPAT IENT VISIT EST [facility], [address], [place], [place], [address] , tel: [phone] [facility] IM DehydrationHypert ensive chronic kidney disease with stage 1 through stage 4 chronic kidney disease, or unspecified chronic kidney disease Apr- 3 2 Cizek Xochitl. [address], [place], [place], [address], [place]. tel:[phone] Referring Provider: Xochitl Perez, [address], [place], [address] . tel:[phone] OFFICE TTNYR-BQR-YPL [facility], [address], [place], [place], [address] , tel:[phone] [facility] Chronic Conditions (chief complaint) Acute UTIDehydrationBen ign hypertensive renal diseaseStage 3a chronic kidney disease Apr-0 2 Cizek Xochitl. [address], [place], [place], [address], [place]. tel:[phone] Referring Provider: Xochitl Perez, [address], [place], [address] . tel:[phone] OFFICE TTXYO-LPX-TZJ [facility], [address], [place], [place], [address] , [place] tel:[phone] [facility] Chronic Conditions (chief complaint) Benign hypertensive renal diseaseOther emphysemaStage 3a chronic kidney diseaseDDD (degenerative disc disease), cervicalBilateral primary osteoarthritis of knee Mar-0 - 2 Cizek Xochitl. [address], [place], [place], [address], [place]. tel:[phone] Referring Provider: Xochitl Perez, [address], [place], [address] . tel:[phone] OFFICE FKIPH-GES-PJU [facility], [address], [place], [place], [address] , tel:[phone] [facility] IM Chronic Conditions (chief complaint) Benign hypertensive renal diseaseStage 3a chronic kidney diseaseOther emphysemaDDD (degenerative disc disease), cervical Dec-0 1 eFlicia Leung. [address], [place], [place], [address], [place]. tel:[phone] Referring Provider: Xochitl Perez, [address], [place], [address] . tel:[phone] OFFICE UQMSO-JNU-RJW [facility], [address], [place], [place], [address] , tel:[phone] [facility] Chronic Conditions (chief complaint) Benign hypertensive renal diseaseStage 3a chronic kidney diseaseThoracic aortic aneurysm without rupture Dec-0 1 Felicia Leung. [address], [place], [place], [address], [place]. tel:[phone] Referring Provider: Xochitl Perez, [address], [place], [address] . tel:[phone] OFFICE CYMKS-BRG-RCH [facility], [address], [place], [place], [address] , tel: [phone] [facility] Chronic Conditions (chief complaint) Benign hypertensive renal diseaseStage 3a chronic kidney diseaseOther emphysemaTear of right biceps muscle, subsequent encounter Sep-0 1 Felicia Leung. [address], [place], [place], [address], [place]. tel:[phone] Referring Provider: Xochitl Perez, [address], [place], [address] . tel:[phone] OFFICE BGOQP-KLZ-ADO [facility], [address], [place], [place], [address] , tel:[phone] [facility] Chronic Conditions (chief complaint) Benign hypertensive renal diseaseStage 3a chronic kidney diseaseThoracic aortic aneurysm without ruptureAtheroscle rosis of aortaSenile purpuraTear of right biceps muscle, subsequent encounter Jul-2 1 Felicia Leung. [address], [place], [place], [address], [place]. tel:[phone] Referring Provider: Xochitl Perez, [address], [place], [address] . tel:[phone] [facility], [address], [place], [place], [address] , tel:[phone] [facility] IM Strain of muscle, fascia and tendon of other parts of biceps, right arm, initial encounter 1 Felicia Leung. [address], [place], [place], [address], [place]. [phone] OFFICE NEOSG-MYX-UJF [facility], [address], [place], [place], [address] , tel: [phone] [facility] acute visit (chief complaint) Tear of right biceps muscle, initial encounterBenign hypertensive renal diseaseStage 3a chronic kidney disease Jul- 1 Nohemi Mckeon. [address], [place], [place], [address], [place]. [phone] Referring Provider: Xochitl Perez, [address], [place], [address] . tel:[phone] OFFICE WPCSB-GNX-CSR [facility], [address], [place], [place], [address] , tel:[phone] [facility] Chronic Conditions (chief complaint) Hypertensive chronic kidney disease with stage 1 through stage 4 chronic kidney disease, or unspecified chronic kidney diseaseChronic kidney disease, stage 3 unspecifiedOther emphysema 0 Felicia Leung. [address], [place], [place], [address], [place]. tel:[phone] Referring Provider: Xochitl Perez, [address], [place], [address] . tel:[phone] OFFICE WKUJP-YNX-LTV [facility], [address], [place], [place], [address] , tel:[phone] [facility] IM Chronic Conditions (chief complaint) Other emphysemaThoracic aortic aneurysm without ruptureHypertensi ve chronic kidney disease with stage 1 through stage 4 chronic kidney disease, or unspecified chronic kidney diseaseChronic kidney disease, stage 3 (moderate)Vitamin D deficiencyFoot pain, right Sep-0 9-202 0 Felicia Leung. [address], [place], [place], [address], [place]. [phone] Referring Provider: Xochitl Perez, [address], [place], [address] . tel:[phone] [facility], [address], [place], [place], [address] , tel:[phone] [facility] No Information Olvin- 2-202 0 Brenna Stokes. [address], [place], [place], [address], [place]. [phone] Referring Provider: Xochitl Perez, [address], [place], [address] . tel:[phone] [facility], [place], [place], [address] , tel:[phone] [facility] Breast nodule May-2 7 0 Felicia Leung. [address], [place], [place], [address], [place]. [phone] [facility], [place], [place], [address] , tel:[phone] [facility] No Information August-2 0-202 0 Hank Ricci. [address], [place], [place], [address], . [phone] Referring Provider: Xochitl Perez, [address], [place], [address] . tel:[phone] TELEPHONE E&M SERVICE BY A PHYSICIAN;5-1 0 MINUTES OF MEDICAL DISCUSSION [facility], [place], [place], [address] , tel:[phone] [facility] Chronic Conditions (chief complaint) Other emphysemaAllergic dermatitis Apr-2 0-202 0 Felicia Leung. [address], [place], [place], [address], [place]. tel:[phone] Referring Provider: Xochitl Perez, [address], [place], [address] . tel:[phone] OFFICE UMPLR-LMW-EDQ RENETTA [facility], [address], [place], [place], [address] , [place] tel:[phone] [facility] Chronic Conditions (chief complaint) Essential hypertensionOther emphysemaThoracic aortic aneurysm without ruptureSenile purpuraAtheroscle rosis of aorta 0 Felicia Leung. [address], [place], [place], [address], [place]. tel:[phone] Referring Provider: Xochitl Perez, [address], [place], [address] . tel:[phone] [facility], [address], [place], [place], [address] , [place] tel:[phone] [facility] No Information 0 Felicia Lindsay. [address], [place], [address], [place]. tel:[phone] Referring Provider: Kike Barbour, [address] [place] [address], [address] . tel:[phone] [facility], [address], [place], [place], [address] , [place] tel:[phone] [facility] Periumbilical abdominal pain 0 Km Stokes. [address] [place] [address], [address], [place]. tel:[phone] [facility], [address], [place], [place], [address] , [place] tel:[phone] [facility] No Information 0 Km Stokes. [address] [place] [address], [address], [place]. tel:[phone] Referring Provider: Xochitl Perez, [address], [place], [address] . tel:[phone] [facility], [address], [place], [place], [address] , tel: [phone] [facility] No Information 0 Km Stokes. [address] [facility] [address] [address], [place], [place], [address], . tel:[phone] Referring Provider: Xochitl Perez, [address], [place], [address] . tel:[phone] OFFICE BHXFS-ZYS-FZL [facility], [address], [place], [place], [address] , tel: [phone] [facility] Chronic Conditions (chief complaint) Essential hypertensionOther emphysemaRight lower quadrant abdominal painAnemia, unspecified type 9 Felicia Leung. [address], [place], [place], [address], . tel:[phone] Referring Provider: Xochitl Perez, [address], [place], [address] . tel:[phone] OFFICE BUQJU-SOT-EQH [facility], [address], [place], [place], [address] , tel: [phone] [facility] Chronic Conditions (chief complaint) Essential hypertensionOther emphysemaAnkle edema, bilateralOnychomy cosis 9 Felicia Leung. [address], [place], [place], [address], [place]. tel:[phone] Referring Provider: Xochitl Perez, [address], [place], [address] . tel:[phone] OFFICE FRUDD-OKD-ODY [facility], [address], [place], [place], [address] , tel: [phone] [facility] acute visit (chief complaint) Left foot painTobacco user 9 Kodak Cannon. [address] [facility], [address], [place], [place], [facility], . tel:[phone] Referring Provider: Xochitl Perez, [address], [place], [address] . tel:[phone] [facility], [address], [place], [place], [address] , tel: [phone] [facility] No Information 9 Cizek Xochitl. [address], [place], [place], [address], . tel:[phone] Referring Provider: Xochitl Perez, [address], [place], [address] . tel:[phone] [email or web address], [address], [place], [place], [address] , tel: [phone] [facility] Chronic Conditions (chief complaint) Essential hypertensionOther emphysemaSenile purpuraLung nodulesThoracic aortic aneurysm without ruptureTobacco use 9 Cizemarilyn Leung. [address], [place], [place], [address], . tel:[phone] Referring Provider: Xochitl Perez, [address], [place], [address] . tel:[phone] [employer], [address], [place], [place], [address] , tel: [phone] [facility] Chronic Conditions (chief complaint) Essential hypertensionOther emphysemaTobacco consumptionPneumo river of both lower lobes due to infectious organism 9 Cizemarilyn Leung. [address], [place], [place], [address], . tel:[phone] Referring Provider: Xochitl Perez, [address], [place], [address] . tel:[phone] [email or web address], [address], [place], [place], [address] , tel: [phone] [facility] Chronic Conditions (chief complaint) Pneumonia of both lower lobes due to infectious organismOther emphysemaTobacco consumptionEssent ial hypertensionSenil e purpura 9 Cizek Xochitl. [address], [place], [place], [address], [place]. [phone] Referring Provider: Xochitl Perez, [address], [place], [address] . tel:[phone] [facility], [address], [place], [place], [address] , [place] tel: [phone] [facility] Abnormal chest CT 8 Hank Ricci. [address] , [place], [place], [address], [place]. tel:[phone] Referring Provider: Xochitl Perez, [address], [place], [address] . tel:[phone] [facility], [address], [place], [place], [address] , [place] tel: [phone] [facility] Annual physical examEssential hypertensionOsteo peniaAnxiety disorder, unspecifiedVitami n D deficiencyTobacco consumptionGenera lized abdominal painBilateral impacted cerumen 8 Cizek Xochitl. [address], [place], [place], [address], [place]. tel:[phone] Referring Provider: Xochitl Perez, [address], [place], [address] . tel:[phone] [facility], [address], [place], [place], [address] , [place] tel: [phone] [facility] Encounter for screening for osteoporosis 8 Cizek Xochitl. [address], [place], [place], [address], [place]. tel:[phone] [facility], [address], [place], [place], [address] , [place] tel: [phone] [facility] Essential hypertensionSenil e purpuraAnxiety disorder, unspecified Fe 8 Cizek Xochitl. [address], [place], [place], [address], [place]. tel:[phone] Referring Provider: Xochitl Perez, [address], [place], [address] . tel:[phone] [facility], [address], [place], [place], [address] , [place] tel: [phone] [facility] OsteopeniaEssenti al hypertensionSenil e purpuraEncounter for gynecological examination (general) (routine) without abnormal findingsPolyosteo arthritis, unspecifiedAnxiet y disorder, unspecifiedFall, initial encounter 7 Felicia Leung. [address], [place], [place], [address], [place]. tel:[phone] Referring Provider: Xochitl Perez, [address], [place], [address] . tel:[phone] [email or web address], [address], [place], [place], [address] , [place] tel: [phone] [facility] Essential hypertensionAcute pain of right shoulder 7 Felicia Leung. [address], [place], [place], [address], [place]. tel:[phone] Referring Provider: Xochitl Perez, [address], [place], [address] . tel:[phone] [facility], [address], [place], [place], [address] , [place] tel: [phone] [facility] Essential hypertensionSenil e purpura 6 Bridgetzemarilyn Xochitl. [address], [place], [place], [address], [place]. tel:[phone] Referring Provider: Xochitl Perez, [address], [place], [address] . tel:[phone] [facility], [address], [place], [place], [address] , [place] tel: [phone] [facility] No Information 3 6 Cizemarilyn Xochitl. [address], [place], [place], [address], [place]. tel: [phone] [email or web address], [address], [place], [place], [address] , tel: [phone] [facility] Essential hypertension 0 5-201 6 Cizek Xochitl. [address], [place], [place], [address], [place]. tel: [phone] Referring Provider: Xochitl Perez, [address], [place], [address] . tel:[phone] [facility], [address], [place], [place], [address] , [place] tel: [phone] [facility] Elevated blood pressure (not hypertension) 6-201 6 Cizek Xochitl. [address], [place], [place], [address], [place]. tel: [phone] [facility], [address], [place], [place], [address] , tel: [phone] [facility] Essential hypertension 9-201 6 Cizek Xochitl. [address], [place], [place], [address], [place]. tel: [phone] Referring Provider: Xochitl Perez, [address], [place], [address] . tel:[phone] [email or web address], [address], [place], [place], [address] , [place] tel: [phone] [facility] Essential hypertensionAcute viral conjunctivitis of both eyes Jul-0 4-201 6 Cizek Xochitl. [address], [place], [place], [address], [place]. tel: [phone] Referring Provider: Xochitl Perez, [address], [place], [address] . tel:[phone] [facility], [address], [place], [place], [address] , tel: [phone] [facility] Osteopenia Jun- 0-201 6 Cizek Xochitl. [address], [place], [place], [address], [place]. tel:[phone] [employer], [address], [place], [place], [address] , [place] tel: [phone] [facility] IM Right-sided low back pain without sciaticaOsteopeni aEssential hypertension 0 6 Detmer Bety. [address], [place], [place], [address], [place]. tel:[phone] Referring Provider: Xochitl Perez, [address], [place], [address] . tel:[phone] [employer], [address], [place], [place], [address] , [place] tel: [phone] [facility] IM Routine gynecological examOsteoarthrosi s, Unspecified, Unspecified SiteOsteopeniaEle vated blood pressure (not hypertension)Ceru men impactionAbdomina l painAnxiety state, unspecified 5 Cidawit Leung. [address], [place], [place], [address], [place]. tel:[phone] Referring Provider: Xochitl Perez, [address], [place], [address] . tel:[phone] [employer], [address], [place], [place], [address] , [place] tel: [phone] [facility] Elevated blood pressure (not hypertension)Oste oarthrosis, generalized, involving unspecifiedTobacc o useAnxiety state, unspecifiedOsteop eniaCerumen impactionRoutine gynecological exam 3 Cidawit Leung. [address], [place], [place], [address], [place]. tel:[phone] Referring Provider: Xochitl Perez, [address], [place], [address] . tel:[phone] [employer], [address], [place], [place], [address] , tel: [phone] [facility] Urinary tract infection, site not specifiedAcute upper respiratory infections of unspecified siteTobacco use disorder 201 3 Detmer Bety. [address], [place], [place], [address], [place]. tel:[phone] Referring Provider: Xochitl Perez, [address], [place], [address] . tel:[phone] [employer], [address], [place], [place], [address] , tel: [phone] [facility] Osteoarthrosis, generalized, involving unspecified siteAnxiety state, unspecifiedTobacc o use disorderUrinary tract infection, site not specifiedElevated blood pressure reading without diagnosis of hypertension 2 Felicia Leung. [address], [place], [place], [address], [place]. tel:[phone] Referring Provider: Xochtil Perez, [address], [place], [address] . tel:[phone] [employer], [address], [place], [place], [address] , [place] tel: [phone] [facility] Urinary tract infection Mar- 2 Detmer Bety. [address], [place], [place], [address], [place]. 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 [address], [place], [place], [address], [place]. tel:[phone] Referring Provider: Xochitl Perez, [address], [place], [address] . tel:[phone] [employer], [address], [place], [place], [address] , tel: [phone] [facility] Shoulder pain, left 201 2 Detmer Bety. [address], [place], [place], [address], [place]. tel:[phone] Referring Provider: Xochitl Perez, [address], [place], [address] . tel:[phone] [employer], [address], [place], [place], [address] , tel: [phone] [facility] Superficial injury of cornea 1 Siri Anthony. [address], [place], [place], [address]. tel:[phone] Referring Provider: Xochitl Perez, [address], [place], [address] . tel:[phone] [employer], [address], [place], [place], [address] , [place] tel: [phone] [facility] IM Routine gynecological examinationAnxiet y state, unspecifiedOsteoa rthrosis, Unspecified, Unspecified SiteImpacted cerumen 1 Felicia Leung. [address], [place], [place], [address], [place]. tel:[phone] Referring Provider: Xochitl Perez, [address], [place], [address] . tel:[phone] [employer], [address], [place], [place], [address] , [place] tel: [phone] [facility] PAIN IN LIMBREDNESS/DISCH ARGE OF EYE 1 Felicia Leung. [address], [place], [place], [address], [place]. tel:[phone] [employer], [address], [place], [place], [address] , [place] tel: [phone] [facility] TOBACCO USE DISORDER 0 Felicia Leung. [address], [place], [place], [address], [place]. tel:[phone] [employer], [address], [place], [place], [address] , [place] tel: [facility] ANXIETY STATE NOSROUTINE MEDICAL EXAMSCREEN MAL NEOP-RECTUM Olvin-2 5-200 9 Cizek Xochitl. [address], [place], [place], [address], [place]. tel: [phone] [employer], [address], [place], [place], [address] , tel: [facility] PURE HYPERCHOLESTEROLE M August- 8-200 6 Cizek Xochitl. [address], [place], [place], [address], [place]. tel:[phone] [employer], [address], [place], [place], [address] , tel: [facility] GENERAL OSTEOARTHROSISLON G-TERM USE MEDS NEC Sep-0 1-200 5 Cizek Xochitl. [address], [place], [place], [address], [place]. tel:[phone] [employer], [address], [place], [place], [address] , [place] tel: [facility] ND OTHER SPECF VACNATION Dec-0 3-200 2 Cizek Xochitl. [address], [place], [place], [address], [place]. tel:[phone] [employer], [address], [place], [place], [address] , [place] tel: [facility] HORMONE REPLACE POSTMENO Sep-2 6-200 0 Cizek Xochitl. [address], [place], [place], [address], [place]. tel:[phone] [employer], [address], [place], [place], [address] , [place] tel: [facility] SCREEN-BLOOD DIS NOS May-0 9-200 0 Cizek Xochitl. [address], [place], [place], [address], [place]. tel:[phone] [employer], [address], [place], [place], [address] , [place] tel:[phone] [facility] IM SCREEN FOR HYPERTENSION 200 0 Felicia Leung. [address], [place], [place], [address], [place]. tel:[phone] Family History Family Member Type Diagnosis Age [...] conjugate PCV20 administered Source: New Immunization Record [employer] (Bivalent Booster) COVID Vac, 30mcg/0.3mL, 12+ years administered Source: Other Provid er Fluzone Quad, preservative free, split virus, 0.5mL dosage administered Source: New Immuniza tion Record [employer] (Diluent Reconstitute d) COVID19 Vaccine, 0.3mL per [...] type Covered republican ID Authoriza tion(s) AETNA MDCR [place] PLANS [place] [id number] MEDICARE MB [id number] [employer] MDCR PPO PLANS [place] [id number] MEDICARE MB [id number] [facility] OPEN ACCESS I II III CI [id number] S01 MEDICARE MB [id number] [facility] OPEN ACCESS I II III CI [id number] S01 [employer] OPEN ACCESS I II III CI [id number] S01 [employer] OPEN ACCESS I II III CI [id number] S01 [employer] HMO CI [id number] [employer] HMO CI [id number] [employer] HMO CI [id number] [employer] HMO CI [id number] Social History Type Description Quantity Date Captured [...] ordered Referral Referred To: Ashwin Hinson [address] [facility]
[address] [place], [phone] Ordered: Referrals: Pulmonology. Ashwin Hinson. Evaluation/diagnostic/treatment - Level 3 ordered Referral Referred To: [address] [facility] [address] [place] [address], [phone] Ordered: CT scan of chest with contrast ordered Referral Referred To: [address] [place], [place], [phone] Ordered: Screening mammography of both breasts Appointment date/timeframe: 08/08/2024 ordered Referral Referred To: [address] [place], [place], [phone] Ordered: Colonoscopy, flexible; with biopsy, single or multiple Appointment date/timeframe: 11/05/2022 ordered Referral Referred To: [address] [place], [place], [phone] Ordered: Upper gastrointestinal endoscopy Appointment date/timeframe: 11/05/2022 ordered Referral Referred To: Robert Janneth THOMAS [address] [place], [phone] Ordered: Referrals: Orthopedic Surgery. Robert Lagunas DO. Evaluation/diagnostic/treatment - Level 3 ordered Referral Referred To: [address] [place] [address], [phone] Ordered: VENECIA (ankle brachial index) ordered Referral Referred To: [address] [place] [address], [address] [phone] Ordered: Complete Doppler ultrasound of arteries of both lower extremities ordered Referral Ordered: X-RAY EXAM OF KNEES Bilateral ordered Referral Ordered: Complete Doppler ultrasound of renal artery ordered Referral Ordered: Complete duplex scan of renal vessels ordered Referral Ordered: CT of right upper extremity without contrast Right Appointment date/timeframe: 10/09/2020 ordered Referral Referred To: [address] [place] [address], [address] [phone] Ordered: MRI upper extremity oth than jt w/o contr matrl ordered Referral Ordered: X-RAY EXAM OF FOOT Right ordered Referral Referred To: [address] [place] [address], [phone] Ordered: Spot compression mammography of left breast Left breast ordered Referral Referred To: [address] [place] [address], [address] [phone] Ordered: US breast left limited Left breast ordered Referral Referred To: [address] [place] [address], [id number] [phone] Ordered: SCREENING MAMMOGRAM (CAD) Bilateral breast Appointment date/timeframe: 07/19/2019 ordered Referral Referred To: [address] [place] [address], [address] [phone] Ordered: CT angiography chest w/contrast/noncontrast Appointment date/timeframe: 07/19/2019 ordered Referral Ordered: CT abdomen and pelvis w contrast ordered Referral Referred To: [address] [place] [address]
[address], [phone] Ordered: COLONOSCOPY, Flexible, Proximal To Splenic, Diagnostic, Wor W/O Collection Of Sp Appointment date/timeframe: 06/01/2019 ordered Referral Referred To: [address] [place] [address]
[address], [phone] Ordered: EGD, FLEXIBLE, TRANSORAL, DIAGNOSTIC W/ COLLECTION OF SPECIMEN Appointment date/timeframe: 06/01/2019 ordered Referral Ordered: X-RAY EXAM OF FOOT Left ordered Referral Ordered: Chest Xray, 2 Views ordered Appointment Fara Valencia BOOKED Future Order: Radiology Order Co mplete Doppler ultrasound of renal artery ([id number]), Sent on: Sent Future Order: Radiology Order Co mplete duplex scan of renal vessels ([id number]), Sent on: Sent Future Order: Radiology Order MR I upper extremity oth than jt w/o contr matrl ([id number]), Sent on: Sent History Of Present Illness [...] fill the toilet. She has been using ozcc-ifd-mvxywar creams for discomfort, finding some relief. She [...] an ER follow up. She went to [facility] on 04/17/2024 for shortness of breath, [...] OTC medications. Chronic Conditions *See Chronic Conditions [facility] Chronic Conditions Patient prese [facility] for an ER follow up. She went to [facility] on 04/17/2024 for shortness of breath, [...] and above. Chronic Conditions *See Chronic Conditions [facility] Chronic Conditions *See Chronic Conditions [facility] Chronic Conditions *See Chronic Conditions [facility] Chronic Conditions *See Chronic Conditions [facility] Medicare preventive A Health [...] changes made. chronic conditions *See Chronic Conditions [facility] Chronic Conditions *See Chronic Conditions [facility] Chronic Conditions *See Chronic Conditions [facility] Chronic Conditions *See Chronic Conditions [facility] Chronic Conditions *See Chronic Conditions [facility] Chronic Conditions *See Chronic Conditions [facility] Chronic Conditions *See Chronic Conditions [facility] Chronic Conditions *See Chronic Conditions [facility] acute visit Chief complaint: [...] and updated. Chronic Conditions *See Chronic Conditions [facility] acute visit Chief complaint: diarrhea. Associated symptoms [...] frothy urine. Chronic Conditions *See Chronic Conditions [facility] Chronic Conditions *See Chronic Conditions [facility] Chronic Conditions *See Chronic Conditions [facility] Chronic Conditions *See Chronic Conditions [facility] acute visit Chief complaint: ankle pain. Painful lump and redness around her right ankle. This began 3 days ago. Tender to touch. Very warm to touch. No injury. Taking Tylenol and applying ice. Increased swelling after standing all day at work.Has hypertension. Taking meds. No chest pain or headache. Chronic Conditions *See Chronic Conditions [facility] Chronic Conditions *See Chronic Conditions [facility] Chronic Conditions *See Chronic Conditions [facility] Chronic Conditions *See Chronic Conditions [facility] Chronic Conditions *See Chronic Conditions [facility] Chronic Conditions *See Chronic Conditions [facility] acute visit Chief complaint: [...] frothy urine. Chronic Conditions *See Chronic Conditions [facility] Chronic Conditions *See Chronic Conditions [facility] Chronic Conditions *See Chronic Conditions [facility] Chronic Conditions *See Chronic Conditions HPI Chronic [...] to Bleeding hemorrhoids We will call you [facility] lab results. Let us know if your [...] deficiency anemia type [facility]Use this to help with shortness of [...] if not improving. Related to Folliculitis Recommend Hamilton nasal gel to help with this. Related [...] pressure is el evated in office, to [facility]. Related to Hypertensive chronic kidney [...] chronic kidney disease Doing well. Normal m weatherford testing. Schedule mammogram. Follow up in 3 [...] if you stay at home, use hand production clerks supervisor and wash your hands frequently. Especially when [...] if you stay at home, use hand production clerks supervisor and wash your hands frequently. Especially when [...] if you stay at home, use hand production clerks supervisor and wash your hands frequently. Especially when [...] Mental Status Date Cognitive Assessment Orientation - [place] ed to time, place, person, situation. Patient Care Teams Name Effective Dates (start - stop) Status Members No Information
[2024-11-28 22:02] VITALS: BP 111/58; PULSE 114; RESP 17; TEMP 37.3; O2SAT 95
--- NOTE | 2024-11-28 22:02 | ECG_ITS ---
Test Date: 2024-11-28 22:21:23 Measurements Intervals [place] Rate: 106 P: 55 VA: 134 QRS: -1 QRSD: 87 T: 40 QT: 347 QTc: 462 Interpretive Statements SINUS TACHYCARDIA LOW QRS VOLTAGE IN PRECORDIAL LEADS BORDERLINE R WAVE PROGRESSION, ANTERIOR LEADS BASELINE ARTIFACT- III BORDERLINE ECG Compared to ECG 04/17/2024 11:36:24 HEART RATE HAS INCREASED Electronically Signed On 11-29-2024 06:38:56 CDT by Michel Lainez D.O.
--- OUTSIDE RECORDS SUMMARY | 2024-11-28 22:03 | XMS_ITS | Patient Health Record ---
Author Organization [facility] Address [address] [place] [id number] Care Team Providers Care Scrap Baler Name Role Phone Xochitl Duarte MD Primary Care Provider Unavail able Garfield Basilio Unavailable [phone] ALLERGIES Allergen (clinical drug ingredient) Drug/Non Drug Allergy documented on EMR Reaction Allergy Type Onset Date Status indomethacin Indomethacin Unknown Drug Allergy A ctive REASON FOR REFERRAL No Information MEDICATIONS Medication SIG (Take, Route, Frequency, Duration) Notes Start Date End Date Status Tylenol Extra Strength 500 MG 2 tablet as needed Orally every 6-8 hrs Active Ondansetron HCl 4 MG 1 tablet Orally every 6 hrs Not-Taking ProAir HFA 108 (90 Base) MCG/ACT 2 puff as needed Inhalation every 4 hrs Active Doxazosin Mesylate 4 MG 1 tablet Orally Once a day for 30 day(s) Active MS Contin 30 MG 1 tablet Orally every 12 hrs Active Nebivolol HCl 20 MG 1 tablet Orally Once a day for 30 day(s) Active Lisinopril 40 MG 0.5 tablet Orally Once a day Active Xanax 0.5 MG 1 tablet Orally ONCE A DAY as needed Active Flexeril 10 mg 1 tablet once a day Active Anoro Ellipta 62.5-25 MCG/INH 1 puff Inhalation Once a day PRN Active Aspirin 81 MG 1 tablet Orally Once a day for 30 day(s) Active SOCIAL HISTORY Tobacco Use: Social History Observation Description Date Details (start date - stop date) Current Smoker NA - NA Sex Assigned At : Social History Observation Description Sex Assigned At Unknown Tobacco Use/Smoking Question Answer Notes You are a current smoker PROBLEMS Problem Type ICD Code Onset Dates Problem Status W/U Status Risk SNOMED Code Notes Problem Essential (primary) hypertension (I10) Active confirmed Essential hypertension (05852477) Problem Acute kidney failure, unspecified (N17.9) Active confirmed Acute renal failure syndrome (76438554) PLAN OF TREATMENT Future Test Test Name Order Date Ultrasound : Kidneys 09/11/2021 RENAL ARTERY DUPLEX 09/11/2021 RENAL PANEL 01/17/2022 RENAL PANEL 03/19/2022 Insurance Providers Payer Name Payer Address Payer Phone Subscriber Number Group Number Insured Name Patient Relationship to Insured Coverage Start Date Coverage End Date [employer] [facility] [address] [place] [address] [id number] I Fara Valencia Self - patient is the insured MEDICAL (GENERAL) HISTORY Medical History History ICD Code Hypertensive chronic kidney disease with stage 1 through stage 4 chronic kidney disease, or unspecified chronic kidney disease. CKD stage 3a Atherosclerosis of aorta peripheral vascular disease Elevated blood pressure (not hypertensio n) Osteopenia Osteoarthritis Tobacco use Anxiety state Urinary tract infection Benign hypertensive renal disease Non-thrombocytopenic purpura Aneurysm of descending thoracic aorta Pulmonary emphysema US Renal Duplex: 10/01/2021: Normal right and left renal ultrasound. No sonographic evidence of hemodynamically significant renal artery stenosis. Surgical History Surgery Date(Month/Year)
--- OUTSIDE RECORDS SUMMARY | 2024-11-28 22:03 | XMS_ITS | Clinical Summary ---
Author Organization [employer] [place] Address [address] [place] [address] Care Team Providers Care Head Buyer Tobacco Name Role Phone Xochitl Duarte MD Primary Care Provider [phone] Allergies Active Allergy Reactions Criticality Noted Date [...] of biceps tendon, right, initial encounter 08/14/2020 Encounters Date Type Department Care Team Description 11/21/2024 External Device Data [facility]CTION Provider, Abstract 10/24/2024 External Device Data [facility] Provider, Abstract 10/24/2024 External Device Data [facility] Provider, Abstract 10/24/2024 External Device Data [facility] Provider, Abstract 10/18/2024 External Device Data [facility] Provider, Abstract 10/18/2024 External Device Data [facility] Provider, Abstract 10/17/2024 External Device Data [facility] Provider, Abstract 09/26/2024 External Device Data [facility] Provider, Abstract 09/26/2024 External Device Data [facility] Provider, Abstract 09/19/2024 External Device Data [facility] Provider, Abstract 09/05/2024 External Device Data [facility] Provider, Abstract 08/29/2024 External Device Data [facility] Provider, Abstract from Last 3 Months Social History Tobacco [...] 4:18 PM CDT Height 167.6 cm (5' 6) 11/04/2023 4:18 PM CDT Body Mass Index 26.63 11/04/2023 4:18 PM CDT Plan of Treatment Health Maintenance Due Date Last Done Comments DTAP/TDAP/TD VACCINES (1 - Tdap) 1976 BREAST CANCER SCREENING 1997 COLORECTAL SCREENING 2002 Colorectal Cancer Screening 2002 FIT-DNA Q 3 years 2002 FIT/FOBT Q 1 year 2002 Flex Sig/CT Colonography Q 5 years 2002 PNEUMOCOCCAL VACCINE 50+ YEARS (1 of 1 - PCV) 04/26/19 08 ZOSTER VACCINE (1 of 2) 2007 OSTEOPOROSIS SCREENING 2022 INFLUENZA VACCINE (#1) 2024 RSV VACCINE (60+ or ) (1 - 1-dose 75+ series) 2032 Insurance [employer] PPO MCR [employer] PPO MCR Care Teams Head Buyer Tobacco Relationship Specialty Start Date End Date Xochitl Duarte MD [address] [place] [phone] PCP - General Internal Medicine 08/14/20
--- OUTSIDE RECORDS SUMMARY | 2024-11-28 22:03 | XMS_ITS | Clinical Summary ---
Author Organization [facility] [address] [place] Address [address] [place] [address] Care Team Providers Care Lieutenant Fire Fighter Name Role Phone No, Physician Primary Care Provider [phone] Allergies Active Allergy Reactions Criticality Noted Date [...] on file Legal Sex Female 2:25 AM ECOMMERCE MANAGER Gender Identity Not on file Sexual Orientation Not on file Obstetrics History Last Filed Vital Signs Vital Sign Reading Time Taken Comments Blood Pressure 134/96 04/24/2021 9:01 AM ECOMMERCE MANAGER Pulse 54 04/24/2021 8:53 AM ECOMMERCE MANAGER Temperature 36.3 C (97.4 F) 04/24/2021 8:53 AM ECOMMERCE MANAGER Respiratory Rate 16 04/24/2021 8:53 AM ECOMMERCE MANAGER Oxygen Saturation 99% 04/24/2021 8:53 AM ECOMMERCE MANAGER Inhaled Oxygen Concentration - - Weight 68 kg (150 lb) 03/10/2024 10:36 AM ECOMMERCE MANAGER Height 167.6 cm (5' 6) 03/10/2024 10:36 AM ECOMMERCE MANAGER Body Mass Index 24.21 03/10/2024 10:36 AM ECOMMERCE MANAGER Plan of Treatment Health Maintenance Due [...] 2023 03/09/2021, 06/21/2020, 06/02/2020 Influenza Vaccine (#1) 2024 , 12/13/2019, 01/03/2019 Insurance AETNA MEDICARE AETNA MEDICARE Care Teams Lieutenant Fire Fighter Relationship Specialty Start Date End Date No, Physician PCP - General 04/24/21
[2024-11-28 22:50] LABS: Hematocrit 28.9 % (37.0-47.0); Hemoglobin 9.4 g/dL (12.0-15.0); Immature Granulocyte Percent A 1.2 % (0-0.5); Lymphocytes Absolute Auto 1.13 K/mm3 (0.9-3.2); Mean Corpuscular HGB Conc 32.5 g/dl (32-36); Mean Corpuscular Hemoglobin 30.1 pg (26-34); Mean Corpuscular Volume 92.6 fl (80-100); Nucleated Red Blood Cells Absolute Auto 0.000 K/mm3 (0.0-0.012); Nucleated Red Blood Cells Perc 0.0 % (0.0-0.2); Platelet Count Result 363 k/mm3 (150-375); Red Blood Count 3.12 M/mm3 (4.2-5.4); White Blood Count 28.9 K/mm3 (4.5-10.0)
[2024-11-28 23:01] LABS: Alanine Aminotransferase 75 U/L (6-35); Albumin Level 3.0 g/dL (3.5-5.1); Alkaline Phosphatase 157 U/L (38-126); Anion Gap 9 mmol/L (4-12); Aspartate Amino Transferase 77 U/L (14-36); Bilirubin,Total 0.7 mg/dL (0.2-1.3); Blood Urea Nitrogen 22 mg/dL (7-17); Calcium 8.7 mg/dL (8.4-10.2); Carbon Dioxide 21 mmol/L (22-30); Chloride 99 mmol/L (98-107); Estimated Glomerular Filt Rate 56; Glucose 123 mg/dL (65-110); INR 1.3; Lipase 68 U/L (23-300); Potassium 3.0 mmol/L (3.4-5.0); Prothrombin Time 15.9 Seconds (11.1-14.7); Sodium 129 mmol/L (137-145); Total Protein 6.4 g/dL (6.3-8.2)
[2024-11-28 23:02] LABS: Partial Thromboplastin Time 42.2 Seconds (22.3-36.8)
--- OUTSIDE RECORDS SUMMARY | 2024-11-28 23:03 | XMS_ITS | Clinical Summary ---
Author Organization [facility] [address] [place] Address [address] [place] [phone] Care Team Providers Care Document Advisor Name Role Phone No, Physician Primary Care Provider [phone] Allergies Active Allergy Reactions Criticality Noted Date [...] on file Legal Sex Female 2:25 AM COMMUNITY ASSISTANT Gender Identity Not on file Sexual Orientation Not on file Obstetrics History Last Filed Vital Signs Vital Sign Reading Time Taken Comments Blood Pressure 134/96 04/24/2021 9:01 AM COMMUNITY ASSISTANT Pulse 54 04/24/2021 8:53 AM COMMUNITY ASSISTANT Temperature 36.3 C (97.4 F) 04/24/2021 8:53 AM COMMUNITY ASSISTANT Respiratory Rate 16 04/24/2021 8:53 AM COMMUNITY ASSISTANT Oxygen Saturation 99% 04/24/2021 8:53 AM COMMUNITY ASSISTANT Inhaled Oxygen Concentration - - Weight 68 kg (150 lb) 03/10/2024 10:36 AM COMMUNITY ASSISTANT Height 167.6 cm (5' 6) 03/10/2024 10:36 AM COMMUNITY ASSISTANT Body Mass Index 24.21 03/10/2024 10:36 AM COMMUNITY ASSISTANT Plan of Treatment Health Maintenance Due Date [...] Insurance AETNA MEDICARE AETNA MEDICARE Care Teams Document Advisor Relationship Specialty Start Date End Date No, Physician PCP - General 04/24/21
--- OUTSIDE RECORDS SUMMARY | 2024-11-28 23:03 | XMS_ITS | Clinical Summary ---
Author Organization [employer] [place] Address [address] [place] [address] Care Team Providers Care Orthodontist Small Business Owner Name Role Phone Xochitl Duarte MD Primary Care Provider [phone] Allergies Active Allergy Reactions Criticality Noted Date [...] 75+ series) 2032 Insurance AETNA PPO MCR * Guarantor: AriellesundarFara Account Type Relation to Patient Date of Phone Billing Address Personal/Family Self 1955 [facility] [address] [place] [address] AETNA PPO MCR Care Teams Orthodontist Small Business Owner Relationship Specialty Start Date End Date Xochitl Duarte MD [address] [place] [phone] PCP - General Internal Medicine 08/14/20
[2024-11-28 23:12] LABS: Troponin I 0.013 ng/mL (0.000-0.034)
[2024-11-28 23:21] LABS: Magnesium 1.6 mg/dL (1.6-2.3)
[2024-11-28] MEDS: SODIUM CHLORIDE 0.9% IV 1,000 ML 999 ML IV CONT (23:35)
[2024-11-28] MEDS: POTASSIUM CHLORIDE 20 MEQ PACKET (FOR LIQUID) 40 MEQ PO (23:37)
[2024-11-29] VITALS (26 sets, daily range): BP systolic 119–188; BP diastolic 77–95; PULSE 84–110; RESP 18–24; TEMP 35.9–38.3; O2SAT 94–100; BMI 27.9
[2024-11-29] MEDS: cefTRIAXone 1 GM in SODIUM CHLORIDE 0.9% IV 50 ML 100 ML IVPB (00:13)
--- NOTE | 2024-11-29 00:13 | ED_ITS ---
HPI - General Adult General Chief complaint: Shortness of Breath/Dyspnea Stated complaint: i probably have pneumonia Time Seen by Provider: 11/28/24 22:30 History of Present Illness HPI narrative: Patient is a 69-year-old female who presents to the emergency department this evening complaining of chest pain shortness of breath. Patient recently tested positive for COVID approximately 1 week ago and was called by her primary care physician today informing her that she may have a pneumonia and prompted her to come to the emergency department for further evaluation because white count was significantly elevated. Patient does not wear any oxygen at home. denies any additional symptoms including nausea vomiting or abdominal pain. Denies any urinary symptoms. Related Data Home Medications ?Medication ?Instructions ?Recorded ?Confirmed ?Last Taken ?Type alprazolam 0.5 mg tablet 1 tablet PO BID PRN Anxiety 10/20/21 08/10/24 Unknown History lisinopril 20 mg tablet 20 mg PO DAILY 07/14/2211/27 Unknown History albuterol sulfate 90 mcg/actuation 2 puff inhalation Q ID PRN 02/17/23 08/10/24 Unknown History aerosol inhaler Shortness Of Breath multivitamin with minerals-folic 1 tablet PO DAILY 08/10/24 Unknown History acid 80 mcg chewable tablet (Centrum Adult 50 Plus) pantoprazole 40 mg tablet,delayed 40 mg PO DAILY 02/1708/10/24 Unknown History release aspirin 81 mg tablet,delayed 81 mg PO DAILY 03/19/23 0 08/10/24 Unknown History release (Adult Low Dose Aspirin) Allergies Allergy/AdvReac Type Severity Reaction Status Date / Time No Known Allergies Allergy Verified 08/10/24 11:36 Review of Systems 2 Review of Systems: All systems are reviewed and are negative unless stated otherwise in the HPI. 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, bilateral Chronic, continuous use of opioids 30 mg morphine x 2 years Hydrocephalus as child Emphysema lung Rupture of proximal biceps tendon Mass of right upper extremity Left knee pain Right knee DJD Chronic pain Anxiety Hypertension Rheumatoid arthritis Surgical History Surgical History History of colonoscopy approx 2018 S/P ventricular shunt placement H/O left knee surgery History of surgery on wrist ORIF 07/15/22 Family History Family History Unknown Arthritis Social History Social History Social History: Smoking packs per day: 1 Smoking cigarettes per day: 20.0 Years smoked: 38 Smoking pack-years: 38.00 Smoking status: Former smoker Tobacco type: cigarettes Smoking end date: 04/05/16 Alcohol intake: never Substance use: never Do You Feel Safe in your Home?: Yes Lack of Transportation: No Lack of Food: Never True Current Housing: I Have Housing Concerned About Future Housing: No Difficulty Paying Gas/Electric Bills: No Difficulty Paying for Meds: No Currently Unemployed: No Education: Associate Degree Difficulty w/ Childcare or Family Care: No Living arrangements: with family Additional living arrangements comments: Occupation/Education: occupation Additional occupation/education comments: 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 HEENT: PERRL, no rhinorrhea, no post nasal drip, oropharynx clear. Neck: Trachea midline, no JVD, no lymphadenopathy. Cardiovascular: Tachycardic with regular rhythm, no murmurs, rubs or gallops, no peripheral edema. Respiratory: Diminished breath sounds in the right upper and mid lung zones, no tachypnea, no wheezing, no rhonchi, no rubs, no respiratory distress. Abdomen: Soft, nontender, nondistended, no rebound, no guarding, no peritoneal signs. Musculoskeletal: No joint swelling or deformity, normal muscle tone. Skin: No rashes or petechia, no signs of infection. Psychiatric: Alert and oriented, normal behavior and judgment for situation. Neurological: Alert and oriented to person, place, and time. Follows all commands. No focal deficits, speech is clear and fluent. Course Vital Signs Vital signs: Vital Signs Temperature 99.2 F 11/28/24 22:02 Pulse Rate 114 H 11/28/24 22:02 Respiratory Rate 17 11/28/24 22:02 Blood Pressure 111/58 L 11/28/24 22:02 Pulse Oximetry 95 11/28/24 22:02 Oxygen Delivery Room Air 11/28/24 22:02 Temperature 99.2 F 11/28/24 22:02 Pulse Rate 114 H 11/28/24 22:02 Respiratory Rate 17 11/28/24 22:02 Blood Pressure 111/58 L 11/28/24 22:02 Pulse Oximetry 96 11/29/24 00:09 Oxygen Delivery Nasal Cannula 11/29/24 00:09 Oxygen Flow Rate 2 11/29/24 00:09 Medical Decision Making MDM Narrative Medical decision making narrative: The patient was evaluated by myself in the emergency department. History is obtained from patient who is an independent historian and physical exam was performed. External medical records were reviewed at this time. IV was established and pertinent tests were ordered. Patient is satting above 90% on room air while resting, however, with ambulation her oxygen does drop below 90. She was placed on 2 L nasal cannula at this time. Patient was administered 1 L IV fluid bolus with normal saline and started on IV antibiotics with Rocephin and azithromycin to cover her for pneumonia as she did trigger sepsis. Blood cultures were obtained prior to antibiotic administration. EKG was obtained which revealed sinus tachycardia rate of 106 beats per minute, no evidence of arrhythmia or acute ischemia. EKG was independently interpreted by me and is currently pending official cardiology read. Laboratory results obtained revealing leukocytosis of 28.9, sodium of 129, potassium of 3, mild elevation in the transaminitis with an AST of 77 and ALT of 75, otherwise unremarkable. Initial troponin negative. At this time, patient was continued on maintenance fluids at a rate of 150 cc/hour with normal saline, administered 40 mEq of oral potassium for her hypokalemia. Imaging studies obtained included CXR which was independently interpreted by me revealing right upper lobe consolidation versus cavitary lesion, which is pending final radiology interpretation. at this time CT PE protocol was obtained at this time for further evaluation of the patient's right upper lobe consolidation versus mass. CT revealed extensive airspace consolidation throughout the right upper lobe most stents and confluence involving the superior lateral aspect of the right lung apex. The primary consideration is pneumonia. Aspiration is considered less likely. Mild pericardial effusion. Differential diagnosis considerations include pneumonia, lung mass, acute viral syndrome, dehydration, electrolyte derangements. Comorbidities impacting this visit include none. I have evaluated and discussed social determinants of health with the patient that could potentially impact subsequent diagnosis and treatment plans. On repeat assessment of the patient, reevaluation revealed that the patient is doing well and is in no acute distress. Patient symptoms have improved since she arrived to our emergency department. Repeat vital signs were all reviewed and noted to be stable. Differential diagnosis and treatment plan were discussed with the patient at bedside. Patient agrees with discussion and after shared medical decision making agrees with admission. All questions were answered to the patient's satisfaction. Case Was discussed with the on-call hospitalist and LAUNDRY HOUSEKEEPER Betito at 0040 and he accepted admission. Critical care time of 47 minutes, exclusive of separately performed procedures, necessary for treating or preventing eminent or life-threatening deterioration of patient's condition of sepsis, focused on patient care provided personally by me and time spent during initial evaluation, physical examination, ordering and performing treatments and interventions, ordering and reviewing laboratory studies, ordering and reviewing radiographic studies, re-evaluation of the patient's condition, evaluation of the patient's response to treatment, and discussion of patient case with multiple consultants. Vital Signs Vital Signs: Vital Signs Temperature 99.2 F 11/28/24 22:02 Pulse Rate 114 H 11/28/24 22:02 Respiratory Rate 17 11/28/24 22:02 Blood Pressure 111/58 L 11/28/24 22:02 Pulse Oximetry 95 11/28/24 22:02 Oxygen Delivery Room Air 11/28/24 22:02 Temperature 99.2 F 11/28/24 22:02 Pulse Rate 114 H 11/28/24 22:02 Respiratory Rate 17 11/28/24 22:02 Blood Pressure 111/58 L 11/28/24 22:02 Pulse Oximetry 96 11/29/24 00:09 Oxygen Delivery Nasal Cannula 11/29/24 00:09 Oxygen Flow Rate 2 11/29/24 00:09 Lab Data 11/28/24 22:44 11/28/24 22:44 Labs: Lab Results 11/28/24 11/28/24 Range/Units 22:44 22:44 WBC 28.9 H (4.5-10.0) K/mm3 RBC 3.12 L (4.2-5.4) M/mm3 Hgb 9.4 L (12.0-15.0) g/dL Hct 28.9 L (37.0-47.0) % MCV 92.6 (80-100) fl MCH 30.1 (26-34) pg MCHC 32.5 (32-36) g/dl RDW 13.7 (11.5-14.5) % Plt Count 363 (150-375) k/mm3 MPV 8.9 (7.4-10.4) fl Immature Gran % (Auto) 1.2 H (0-0.5) % Neut % (Auto) 88.1 H (45.5-73.1) % Lymph % (Auto) 3.9 L (18.3-44.2) % [place] % (Auto) 6.4 (2.6-8.5) % Eos % (Auto) 0.2 (0-4.4) % Baso % (Auto) 0.2 (0.2-1.2) % Lymph # (Auto) 1.13 (0.9-3.2) K/mm3 [place] # (Auto) 1.8 H (0.1-0.6) K/mm3 Eos # (Auto) 0.1 (0-0.3) K/mm3 Baso # (Auto) 0.1 (0.0-0.1) K/mm3 Abs Immat Gran (auto) 0.34 H (0.00-0.031) K/mm3 Absolute Neuts (auto) 25.5 H (1.3-6.7) K/mm3 Absolute Nucleated RBC 0.000 (0.0-0.012) K/mm3 Nucleated RBC % 0.0 (0.0-0.2) % PT 15.9 H (11.1-14.7) Seconds INR 1.3 APTT 42.2 H (22.3-36.8) Seconds Sodium 129 L (137-145) mmol/L Potassium 3.0 L (3.4-5.0) mmol/L Chloride 99 (98-107) mmol/L Carbon Dioxide 21 L (22-30) mmol/L Anion Gap 9 (4-12) mmol/L BUN 22 H (7-17) mg/dL Creatinine 0.99 (0.7-1.0) mg/dL Estim Creat Clear Calc Not Reportable Estimated GFR 56 L (59 - ) Glucose 123 H (65-110) mg/dL Calcium 8.7 (8.4-10.2) mg/dL Magnesium 1.6 Cancelled (1.6-2.3) mg/dL Total Bilirubin 0.7 (0.2-1.3) mg/dL AST 77 H (14-36) U/L ALT 75 H (6-35) U/L Alkaline Phosphatase 157 H (38-126) U/L Troponin I 0.013 (0.000-0.034) ng/mL Total Protein 6.4 (6.3-8.2) g/dL Albumin 3.0 L (3.5-5.1) g/dL Lipase 68 (23-300) U/L Critical Care Time Critical Care Time Critical Care Time: Yes Total Critical Care Time: 47 ( Please refer to [facility] for attestation.) Discharge Plan Discharge Clinical Impression: Acute hyponatremia, Acute hypokalemia, Sepsis, Lobar pneumonia Patient Disposition: Still a Patient Condition: Improved Patient Language: Portuguese Prescriptions: No Action alprazolam 0.5 mg tablet 1 tablet PO BID PRN (Reason: Anxiety) meloxicam 7.5 mg tablet 7.5 mg PO BID Qty: 60 2RF lisinopril 20 mg tablet 20 mg PO DAILY albuterol sulfate 90 mcg/actuation HFA aerosol inhaler 2 puff INHALATION QID PRN (Reason: Shortness Of Breath) pantoprazole 40 mg tablet,delayed release (DR/EC) 40 mg PO DAILY Centrum Adult 50 Plus 80 mcg Tablet,Chewable 1 tablet PO DAILY aspirin [Adult Low Dose Aspirin] 81 mg Tablet,Delayed Release (Dr/Ec) 81 mg PO DAILY Follow-up/Referrals: PHYSICIAN NOT ON STAFF,NONSTAFF [Primary Care Provider] Time of Disposition: 00:33
[2024-11-29] MEDS: SODIUM CHLORIDE 0.9% IV 1,000 ML 150 ML IV CONT (00:14)
[2024-11-29] MEDS: AZITHROMYCIN IV 500 MG in SODIUM CHLORIDE 0.9% IV 250 ML IVPB (01:02)
[2024-11-29 01:26] LABS: Troponin I 0.012 ng/mL (0.000-0.034)
[2024-11-29] MEDS: ACETAMINOPHEN 325 MG TABLET 650 MG PO ×3 (02:59→21:02)
[2024-11-29 04:59] LABS: Hematocrit 28.2 % (37.0-47.0); Hemoglobin 9.1 g/dL (12.0-15.0); Immature Granulocyte Percent A 1.8 % (0-0.5); Lymphocytes Absolute Auto 0.88 K/mm3 (0.9-3.2); Mean Corpuscular HGB Conc 32.3 g/dl (32-36); Mean Corpuscular Hemoglobin 30.6 pg (26-34); Mean Corpuscular Volume 94.9 fl (80-100); Nucleated Red Blood Cells Absolute Auto 0.000 K/mm3 (0.0-0.012); Nucleated Red Blood Cells Perc 0.0 % (0.0-0.2); Platelet Count Result 327 k/mm3 (150-375); Red Blood Count 2.97 M/mm3 (4.2-5.4); White Blood Count 31.0 K/mm3 (4.5-10.0)
[2024-11-29] MEDS: SODIUM CHLOR 3% 15 ML NEB (RESPIRATORY THERAPY) 6 ML INHALATION (05:25)
[2024-11-29 05:33] LABS: NT Pro B Type Natriuretic Pept 1280 pg/mL (19.9-100)
[2024-11-29 05:36] LABS: Troponin I < 0.012 ng/mL (0.000-0.034)
[2024-11-29 05:44] LABS: Alanine Aminotransferase 65 U/L (6-35); Albumin Level 2.6 g/dL (3.5-5.1); Alkaline Phosphatase 153 U/L (38-126); Anion Gap 5 mmol/L (4-12); Aspartate Amino Transferase 63 U/L (14-36); Bilirubin,Total 0.5 mg/dL (0.2-1.3); Blood Urea Nitrogen 16 mg/dL (7-17); CRP 26.1 mg/dL (<1.0); Calcium 8.3 mg/dL (8.4-10.2); Carbon Dioxide 20 mmol/L (22-30); Chloride 107 mmol/L (98-107); Estimated CRCL calculation 61 ml/min; Estimated Glomerular Filt Rate > 60; Glucose 142 mg/dL (65-110); Magnesium 1.8 mg/dL (1.6-2.3); Potassium 3.6 mmol/L (3.4-5.0); Sodium 132 mmol/L (137-145); Total Protein 6.0 g/dL (6.3-8.2)
[2024-11-29 05:54] LABS: Procalcitonin 2.1 ng/mL
[2024-11-29] MEDS: CEFEPIME 2 GM in SODIUM CHLORIDE 0.9% IV 50 ML 100 ML IVPB ×3 (05:55→21:03)
[2024-11-29] MEDS: HYDROcodone/acetaminophen (*CRX) 5-325 MG TABLET 1 TAB PO ×2 (05:59→14:49)
[2024-11-29 06:11] LABS: Influenza A QL RT-PCR Negative (Negative); Influenza B QL RT-PCR Negative (Negative); RSV RNA, RT-PCR Negative (Negative); SARS-CoV-2 RNA PCR Negative (Negative)
[2024-11-29] MEDS: metroNIDAZOLE 500 MG/ISO 100ML 500 MG/100 ML BAG 100 MG IVPB ×3 (06:59→21:15)
[2024-11-29] MEDS: GABAPENTIN 100 MG CAPSULE PO ×2 (08:15→21:04)
[2024-11-29] MEDS: ENOXAPARIN 40 MG/0.4 ML SYRINGE SUB-Q (08:15)
[2024-11-29] MEDS: ASPIRIN 81 MG ENTERIC TABLET PO (08:15)
[2024-11-29] MEDS: ALBUTEROL SULFATE (*SP) AEROSOL 1 PUFF 2 PUFF INHALATION (09:01)
[2024-11-29] MEDS: ACETYLCYSTEINE 20% INHAL SOLN 800 MG/4 ML VIAL 200 MG INHALATION ×3 (09:01→19:46)
--- OUTSIDE RECORDS SUMMARY | 2024-11-29 09:12 | XMS_ITS | Patient Health Record ---
Author Organization [facility] Address [address] [place] [id number] Care Team Providers Care Mill Representative Name Role Phone Xochitl Duarte MD Primary Care Provider Unavail able Garfield Basilio Unavailable [phone] ALLERGIES Allergen (clinical drug ingredient) Drug/Non Drug [...] (primary) hypertension (I10) Active confirmed Essential hypertension (00571176) Problem Acute kidney failure, unspecified (N17.9) Active confirmed Acute renal failure syndrome (98208892) PLAN OF TREATMENT Future Test Test Name Order Date Ultrasound : Kidneys 09/11/2021 RENAL ARTERY DUPLEX 09/11/2021 RENAL PANEL 01/17/2022 RENAL PANEL 03/19/2022 Insurance Providers Payer Name Payer Address Payer Phone Subscriber Number Group Number Insured Name Patient Relationship to Insured Coverage Start Date Coverage End Date [facility] [address] [place] [address] [id number] I Fara Valencia Self - patient is [...]
--- OUTSIDE RECORDS SUMMARY | 2024-11-29 09:12 | XMS_ITS | Clinical Summary ---
Author Organization [employer] [place] Address [address] [place] [address] Care Team Providers Care Nut Blanker Operator Name Role Phone Xochitl Duarte MD Primary Care Provider [phone] Allergies Active Allergy Reactions Criticality Noted Date [...] PPO MCR AETNA PPO MCR Care Teams Nut Blanker Operator Relationship Specialty Start Date End Date Xochitl Duarte MD [address] [place] [phone] PCP - General Internal Medicine 08/14/20
--- OUTSIDE RECORDS SUMMARY | 2024-11-29 09:12 | XMS_ITS | Clinical Summary ---
Author Organization [facility] [address] [place] Address [address] [place] [phone] Care Team Providers Care Automatic Fabric Cutter Name Role Phone No, Physician Primary Care Provider [phone] Allergies Active Allergy Reactions Criticality Noted Date [...] on file Legal Sex Female 2:25 AM DRAWER FITTER Gender Identity Not on file Sexual Orientation Not on file Obstetrics History Last Filed Vital Signs Vital Sign Reading Time Taken Comments Blood Pressure 134/96 04/24/2021 9:01 AM DRAWER FITTER Pulse 54 04/24/2021 8:53 AM DRAWER FITTER Temperature 36.3 C (97.4 F) 04/24/2021 8:53 AM DRAWER FITTER Respiratory Rate 16 04/24/2021 8:53 AM DRAWER FITTER Oxygen Saturation 99% 04/24/2021 8:53 AM DRAWER FITTER Inhaled Oxygen Concentration - - Weight 68 kg (150 lb) 03/10/2024 10:36 AM DRAWER FITTER Height 167.6 cm (5' 6) 03/10/2024 10:36 AM DRAWER FITTER Body Mass Index 24.21 03/10/2024 10:36 AM DRAWER FITTER Plan of Treatment Health Maintenance Due Date [...] Insurance AETNA MEDICARE AETNA MEDICARE Care Teams Automatic Fabric Cutter Relationship Specialty Start Date End Date No, Physician PCP - General 04/24/21
--- NOTE | 2024-11-29 09:20 | PM.CNPUL ---
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 COVID, influenza, RSV RT PCR assay negative, MRSA nasal swab negative. 11/29/24: Plan: Continue cefepime, azithromycin and Flagyl. Blood and sputum cultures pending. Respiratory pathogen panel, urine for Streptococcus, urine for Legionella, chlamydia PCR, mycoplasma PCR all pending. Goal saturation 90-94%. Currently she is on room air. Infectious disease consultation following. Will follow with you. (2) COPD (chronic obstructive pulmonary disease): Code(s): J44.9 - Chronic obstructive pulmonary disease, unspecified Status: Acute Assessment and Plan: GOLD grade 2 group B COPD patient with 40 pack year tobacco use, quit 2016, currently smoking 2-3 marijuana cigarettes a day, PFTs on 07/07/2024 with moderately severe obstructive abnormality, FEV1 1.44 L, 57% predicted, ratio 53% predicted. No bronchodilator response, normal lung volumes moderately decreased DLCO that remains mildly decreased when adjusted for alveolar volume. CT scan of the chest on 04/17/2024 as well as 11/29/2024 demonstrates moderate to severe apical predominant centrilobular emphysema. She is on no home oxygen. 11/28/2021 white blood cell count 28.9, eosinophils 0.2%=58/uL. At baseline she can walk a quarter of a mi and then stops for respiratory insufficiency, she has shortness of breath with her activities of daily living. She is maintained on trelegy 100- 62.5-25 at 1 puff q.day 11/29/24: Currently the patient is not wheezing and I do not believe she is having a COPD exacerbation. Plan: patient with the pneumonia and I will discontinue inhaled corticosteroids. Place the patient on DuoNebs q.6 hours and Mucomyst nebulizers q.6 hours. Will add guaifenesin to 1200 mg p.o. b.i.d. I will check an ABG to exclude hypercarbic respiratory failure. History of Present Illness History of Present Illness Consult date: 11/29/24 Chief complaint: sepsis, pneumonia Narrative: 11/29/2024: This is a new pulmonary consult for right upper lobe pneumonia. 69-year-old with a history of COPD, hypertension, CKD, osteoarthritis, hydrocephalus with FISH HATCHERY SPECIALIST shunt as a child. Regarding her COPD. Patient smoked cigarettes from age [age] a 1 pack per day for total of 40 pack years. Patient smokes marijuana 2-3 cigarettes a day for the last 40 years. Denies any illicit drug use. She was exposed to secondhand smoke from both of her parents and from her until 2006. 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 To 3 weeks ago the patient could walk a quarter of a mi then have to stop for dyspnea on exertion. Overall she can walk 2 miles in 1 hour. She does have some shortness of breath with her activities of daily living. At baseline her room air saturations are 91-92%. 04/17/2024: Patient presented to the emergency department at [facility] with 2 weeks nausea, vomiting, diarrhea right-sided chest pain, pleuritic in nature, room air saturations 96%., Leukocytosis 17.9, and CT angiogram of the chest that showed moderate to severe apical predominant panlobular emphysema, large masslike consolidation right middle lobe. patient was discharged on azithromycin. No infiltrate or mass in the right upper lobe. Discharged from the emergency department. 05/19/2024: CT scan of the chest with decreased size of the right middle lobe infiltrate and mass now with a cavity. no infiltrate or mass in the right upper lobe. Patient was previously seen in the Pulmonary Clinic on 06/27/2024 for COPD and decreasing right middle lobe cavity. Patient smoked tobacco Quit in 2016and marijuana, does not wheeze, no weight loss. Using trilogy and rescue albuterol 1 to 2 times a day. Daily cough with clear secretions sometimes yellow. Last pneumonia was 2017. plan: PET scan, PFTs, 6 minute walk, sputum for bacterial fungal and AFB X 3. 07/06/2024: CT-PET: Continue decreased size of the right middle lobe infiltrate and cavity now with no cavity and scarring. Small nodule inferior right upper lobe with an SUV of 1.7, patchy airspace opacities in the lower lobes with maximal SUV 3.7 on the right and 2.4 on the left. lingular posterior consolidation with an SUV of 5.6. He these were new since 05/19/2024 and consistent with pneumonia. 07/12/2024: Dr. Haider called her, reviewed all test results 07/12/2024. 1) PET Scan 07/06/24; IMPRESSION: Mild uptake associated with multiple new regions of consolidation and patchy airspace opacities in both lungs which given the appearance, distribution and rapid progression most consistent with evolving pneumonia. Small region of discoid atelectasis without abnormal FDG uptake at the site of the prior large masslike opacity in the right middle lobe consistent with resolving pneumonia. No other FDG avid lesions suspicious for primary malignancy or metastatic disease. PET is consistent with pneumonia, not cancer. 2) Sputum; sputum on 06/29/2024 Normal jackie, AFB smear negative, AFB culture negative at 6 weeks. No fungal elements seen. Scant growth of Tanja parapsilosis sp. Isolate #2: dematiaceous mold isolated. Sputum 06/30/2024: Growth of normal jackie. AFB smear negative, AFB culture negative at 6 weeks. No fungal elements seen. Growth of an unidentified mold not resembling any of the known human pathogens on the fungal culture. Sputum 07/01/2024: Growth of normal jackie, AFB smear negative, AFB cultures negative at 6 weeks. No fungal elements seen, no fungal growth at 4 weeks. 3) 6 minute walk showed that she completed is 273 m, 900 ft, did not desaturate. 4) PFT show moderate obstructive ventilatory impairment without response to bronchodilator, and she is on Trelegy 100, did not appear on her med list on the first office visit. She is on treatment, CAT score is low, nothing else needed right now. 5) She found out that her primary care doctor does not have rheumatoid arthritis as a diagnosis. During her initial visit, she told me that she had RA but now we know, she does not. This was important because RA can cause cavitary lung lesions. 11/28/2024: Patient presented to the emergency department with shortness of breath and dyspnea on exertion. on 11/19/2024 after being exposed to her son in law and daughter who were COVID positive she tested COVID positive. She had a fever, cough, increased phlegm production that was calderon with occasional hemoptysis. Her symptoms progressed and on 11/28 she went to a PCP and had an elevated white blood cell count was told to come to the emergency department. She was afebrile. Blood pressure 111/58, heart rate 114, respirations 17, room air saturations 95% and then placed on 2 L with saturations 96%. She had decreased breath sounds in the right upper lobe. White blood cell count 28.9 with eosinophils 0.2%. Creatinine 0.99, COVID influenza and RSV RT PCR assay negative. Chest x-ray with dense consolidation right upper lobe. CT angiogram of the chest compared to PET scan CT on 07/06/2024 showed no change in her apical predominant panlobular emphysema, new dense right upper lobe consolidative infiltrate, unchanged right middle lobe scarring -atelectasis, resolved bilateral lower lobe infiltrates, resolved lingular infiltrates. Patient was given 1 L IV fluids. 11/29/2024: infectious disease consulted, antibiotics changed to cefepime, Flagyl and azithromycin. currently the patient tells me she feels the same as yesterday. When I enter the room she was on 2 L nasal cannula saturation 97%. I decreased her to room air and her saturations were 94%. White blood cell count 31.0, creatinine 0.82, CRP 26.1, procalcitonin 2.1, BNP 1280, MRSA nasal swab PCR negative. DATA: 11/29/2024; EXAMINATION: CTA chest PE protocol INDICATION: Shortness of breath and hypoxia COMPARISON: CT dated 05/19/2024. FINDINGS: There is extensive masslike consolidation right upper lobe with surrounding pneumonia. There is atherosclerosis of the aorta without evidence for aneurysm or dissection. Small pericardial effusion. Study is technically adequate without evidence for pulmonary embolism. Trace right pleural effusion. Mild thoracic spondylosis with accentuated kyphosis. IMPRESSION: 1. Extensive masslike consolidation right upper lobe with surrounding airspace consolidation, consistent with pneumonia. Recommend follow-up CT in 2-3 months following appropriate therapy to exclude underlying mass. 2: Small pericardial effusion. Trace right pleural effusion. 07/06/2024: EXAMINATION: PET skull to mid thigh INDICATION: Lung nodule COMPARISON: Chest CT dated 05/19/2024 and 04/17/2024 FINDINGS: Head/neck: There is symmetric increased activity in the oral cavity, palatine and lingual tonsils, parotid glands, submandibular glands, laryngeal muscles and ocular muscles without CT correlate, likely physiologic. There is linear increased FDG uptake extending anteroposteriorly along the right C3-C4 facet joint with corresponding severe osteoarthritis on CT and likely degenerative in etiology. No pathologically enlarged cervical lymphadenopathy or suspicious foci of increased FDG uptake in the visualized head or neck. Chest: Moderate emphysema. Continued evolution in patchy bilateral lung disease with near complete resolution of the previously large masslike region of consolidation seen on study from 04/17/2024 which developed some central cavitation on the more recent study from 05/19/2024 which is continued to significantly decrease in the size now with horizontal bandlike configuration consistent with residual atelectasis/scarring related to prior pneumonia. There is mild FDG uptake associated with a new small nodular opacity in the inferior right upper lobe with maximal SUV of 1.7, new patchy airspace opacities in the bilateral lower lobes with maximal SUV of 3.7 on the right and 2.4 on the left and a larger region of consolidation at the posterior lingula with maximal SUV of 5.6. These are all new since the prior study consistent with pneumonia. No pleural effusion. Heart size is normal. No pericardial effusion. Thoracic aorta is normal in caliber. No pathologically enlarged or abnormally FDG avid thoracic lymphadenopathy. Small focus of increased activity at the medial aspect of the right supraspinatus muscle without radiologic correlate which is likely physiologic. Small focus of increased uptake along the basilic vein at the distal right upper arm which is a small focus of uptake along the brachial vein likely representing minimal extravasation at the site of injection and adjacent mild lymphatic uptake activity. The mild uptake along the left triceps muscle without radiologic correlate also likely physiologic. Abdomen/pelvis/proximal thighs: Physiologic renal accumulation and excretion of FDG activity in the kidneys, bladder and along portions of ureters. Normal degree and heterogenous pattern of increased uptake throughout the liver without radiologic correlate or dominant FDG avid lesion. The gallbladder, pancreas, spleen and bilateral adrenal glands are normal. Mild uptake scattered throughout the bowels without radiologic correlate, also likely physiologic. No other abnormal foci of increased FDG uptake or pathologically enlarged lymphadenopathy in the abdomen, pelvis or proximal thighs. Musculoskeletal: Severe lumbar spondylosis. No other suspicious lytic, blastic or abnormally FDG avid bone lesions to suggest osseous metastatic disease. IMPRESSION: 1. Mild uptake associated with multiple new regions of consolidation and patchy airspace opacities in both lungs which given the appearance, distribution and rapid progression most consistent with evolving pneumonia. Small region of discoid atelectasis without abnormal FDG uptake at the site of the prior large masslike opacity in the right middle lobe consistent with resolving pneumonia. 2. No other FDG avid lesions suspicious for primary malignancy or metastatic disease. 05/19/24: Clinical indication:Right lung mass COMPARISON:04/17/2024 FINDINGS: LUNG:Interval decrease in size of the mass within the right middle lobe, now demonstrating cavitation for which a possible fungal etiology is suspected. The remainder of the lungs are clear. MEDIASTINUM:No pathologically enlarged or morphologically suspicious lymph nodes within the mediastinum. HEART:The heart is of normal size, without pericardial effusion. SOFT TISSUES OF THE CHEST: Unremarkable BONES OF THE CHEST: No lytic or blastic lesions identified IMPRESSION: Interval decrease in size of the abnormality seen within the right middle lobe on previous study, now demonstrating a central cavity, possibly fungal in origin. 04/17/2024: EXAMINATION: CTA chest PE protocol INDICATION: Shortness of breath with elevated d-dimer. Pulmonary embolus suspected clinically COMPARISON: Reference is made to CT examination of the chest dated 05/20/2023. Reference is also made to plain film evaluation of the chest, performed the same day. FINDINGS: No filling defect is identified within the main or proximal pulmonary arteries. The main pulmonary artery is enlarged, suggesting pulmonary hypertension. Intrapulmonary lymph node measuring 6 mm in short axis dimension is redemonstrated within the right middle lobe, increased in size since 05/20/2023. Interval development of a focus of soft tissue attenuation between the right middle and right lower lobes. Blood vessels course through this abnormality, rather than traversing around the abnormality. Severe panlobular emphysematous disease is also noted, as is a small right-sided pleural effusion. The thoracic aorta is nonaneurysmal. No dissection is appreciated Within the upper abdomen: The bilateral adrenal glands are unremarkable. Gallbladder is decompressed, and otherwise unremarkable. IMPRESSION: Panlobular emphysematous disease with interval development of a mass of soft tissue attenuation within the right hemithorax, with surrounding groundglass opacification. The rapidity of growth along with the leukocytosis suggest infectious etiology, rather than malignancy. Follow-up to resolution is recommended, as a malignancy may have a similar appearance No pulmonary embolus. No aortic dissection. 05/21/2023: Clinical Indication: Sepsis CT Scan of the Chest, Abdomen, and Pelvis without Contrast: Findings: There is no evidence of any significant mediastinal, hilar or axillary lymphadenopathy. The mediastinal soft tissues appear normal. Small to moderate pericardial effusion. There is no evidence of pleural or pericardial effusion. The lungs are clear. No pulmonary nodules or infiltrates are noted. Moderate emphysema present. The liver, spleen, pancreas, gallbladder, adrenals and kidneys are within normal limits. There are atherosclerotic calcifications of the aorta. No lymphadenopathy. No bowel obstruction or bowel wall thickening. There is no evidence to suggest acute appendicitis. Urinary bladder is unremarkable. No pelvic mass seen. No ascites. Impression: Moderate emphysema. [id number] pericardial effusion. No significant abnormality evident in the abdomen or pelvis. Review of Systems Constitutional: Constitutional: Reports no additional constitutional complaints Eyes: Eyes: Reports no additional eye complaints ENT: Reports system reviewed and no additional complaints, except as documented Cardiovascular: Cardiovascular: Reports no additional cardiovascular complaints Respiratory: Respiratory: Reports no additional respiratory complaints Gastrointestinal: Gastrointestinal: Reports no additional gastrointestinal complaints Musculoskeletal: Musculoskeletal: Reports no additional musculoskeletal complaints Neurologic: Reports system reviewed and no additional complaints, except as documented Psychiatric: Psychiatric: Reports no additional psychiatric complaints Endocrine: Endocrine: Reports no additional endocrine complaints Hematologic/Lymphatic: Hematologic/Lymphatic: Reports no additional hematologic/lymphatic complaints Allergic/Immunologic: Allergic/Immunologic: Reports no additional allergic/immunologic complaints [facility] Past Medical History Medical History Chronic neck and back pain COPD (chronic obstructive pulmonary disease) Right knee pain Other fatigue Effusion, left knee Effusion of knee joint right 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, bilateral Chronic, continuous use of opioids 30 mg morphine x 2 years Hydrocephalus as child Emphysema lung Rupture of proximal biceps tendon Mass of right upper extremity Left knee pain Right knee DJD Chronic pain Anxiety Hypertension Rheumatoid arthritis Surgical History Surgical History History of colonoscopy approx 2018 S/P ventricular shunt placement H/O left knee surgery History of surgery on wrist ORIF 07/15/22 Family History Family History Unknown Arthritis Mother Kidney disease Social History Social History Social History: Smoking packs per day: 1 Smoking cigarettes per day: 20.0 Years smoked: 38 Smoking pack-years: 38.00 Smoking status: Former smoker Tobacco type: cigarettes Smoking end date: 11/03/06 Alcohol intake: never Substance use: never Substance use type: does not use Do You Feel Safe in your Home?: Yes Lack of Transportation: No Lack of Food: Never True Current Housing: I Have Housing Concerned About Future Housing: No Difficulty Paying Gas/Electric Bills: No Difficulty Paying for Meds: No Currently Unemployed: No Education: Associate Degree Difficulty w/ Childcare or Family Care: No Living arrangements: with family Additional living arrangements comments: Occupation/Education: occupation 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 ;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 [employer] Gender identity (if verbalized by the patient): Female Spiritual care concerns: No Meds Home Medications and Allergies Home Medications ?Medication ?Instructions ?Recorded ?Confirmed ?Type alprazolam 0.5 mg tablet 1 tablet PO BID PRN Anxiety 10/20/21 11/29/24 History lisinopril 20 mg tablet 20 mg PO DAILY 07/14/22 11/29/24 History albuterol sulfate 90 mcg/actuation 2 puff inhalation QID PRN 02/17/23 11/29/24 History aerosol inhaler Shortness Of Breath multivitamin with minerals-folic 1 tablet PO HS 02/17/23 11/29/24 History acid 80 mcg chewable tablet (Centrum Adult 50 Plus) pantoprazole 40 mg tablet,delayed 40 mg PO HS 02/17/23 11/29/24 History release aspirin 81 mg tablet,delayed 81 mg PO DAILY 03/19/23 11/29/24 History release (Adult Low Dose Aspirin) amlodipine 5 mg tablet 5 mg PO DAILY 11/29/24 11/29/24 History gabapentin 100 mg capsule 100 mg PO Q12H 11/29/24 11/29/24 History hydrocodone 5 mg-acetaminophen 325 1 tablet PO Q8H PRN pain 11/29/24 11/29/24 History mg tablet Allergies Allergy/AdvReac Type Severity Reaction Status Date / Time No Known Allergies Allergy Verified 11/29/24 01:57 Vital Signs Vital Signs - 24 hr 11/28/24 22:02 11/29/24 00:09 11/29/24 01:27 Temperature 37.3 C Pulse Rate 114 H 84 Respiratory Rate 17 18 Blood Pressure 111/58 L Pulse Oximetry 95 96 99 Oxygen Delivery Room Air Nasal Cannula Nasal Cannula Oxygen Flow Rate 2 2 Fraction of Inspired Oxygen 11/29/24 03:15 11/29/24 04:00 11/29/24 05:22 Temperature 35.9 C L Pulse Rate 86 87 Respiratory Rate 20 Blood Pressure 131/77 Pulse Oximetry 96 96 Oxygen Delivery Nasal Cannula Oxygen Flow Rate 2 Fraction of Inspired Oxygen 11/29/24 05:28 11/29/24 05:30 11/29/24 08:00 Temperature 36.6 C Pulse Rate 97 97 Respiratory Rate 20 20 Blood Pressure 119/80 Pulse Oximetry 95 95 98 Oxygen Delivery Nasal Cannula Nasal Cannula Oxygen Flow Rate 2 2 Fraction of Inspired Oxygen 28 11/29/24 08:25 Temperature 36.8 C Pulse Rate 90 Respiratory Rate 20 Blood Pressure 133/85 Pulse Oximetry 98 Oxygen Delivery Oxygen Flow Rate Fraction of Inspired Oxygen Exam Const: General: cooperative, comfortable and uncomfortable Orientation/consciousness: oriented to person, oriented to place and oriented to time Other: no respiratory distress. HENMT: Head: normal to inspection Ears: hearing grossly normal bilaterally Eyes: General: appearance normal, both eyes and all related structures Neck: Neck: normal visual inspection Chest: Chest palpation & inspection: normal inspection of the chest Resp: Effort & Inspection: normal respiratory effort and able to speak in complete sentences Auscultation: no crackles, no rales, no rhonchi, no wheezes and diminished lung sounds Other: Decreased breath sounds throughout, absent breath sounds right upper lobe Cardio: Jugular venous distension: no JVD GI: Inspection: normal to inspection GI Palp: No abdominal tenderness Skin: General skin exam: normal color Neuro: General: oriented to person, oriented to place and oriented to time Extrem: General: normal to inspection Psych: Appearance: grossly normal Results Laboratory Findings 11/29/24 04:53 11/29/24 04:53 ABG, PT/INR, D-dimer: PT/INR, D-dimer PT 15.9 Seconds (11.1-14.7) H 11/28/24 22:44 INR 1.3 11/28/24 22:44 Abnormal lab findings: Abnormal Labs 11/28/24 11/29/24 11/29/24 22:44 04:53 07:45 WBC 28.9 H 31.0 H RBC 3.12 L 2.97 L Hgb 9.4 L 9.1 L Hct 28.9 L 28.2 L Immature Gran % (Auto) 1.2 H 1.8 H Neut % (Auto) 88.1 H 88.8 H Lymph % (Auto) 3.9 L 2.8 L Lymph # (Auto) 0.88 L Darke # (Auto) 1.8 H 1.9 H Abs Immat Gran (auto) 0.34 H 0.57 H Absolute Neuts (auto) 25.5 H 27.5 H ESR 125 H PT 15.9 H APTT 42.2 H Sodium 129 L 132 L Potassium 3.0 L Carbon Dioxide 21 L 20 L BUN 22 H Estimated GFR 56 L Glucose 123 H 142 H POC Capillary Glucose 128 H Calcium 8.3 L AST 77 H 63 H ALT 75 H 65 H Alkaline Phosphatase 157 H 153 H C-Reactive Protein 26.1 H NT-Pro-B Natriuret Pep 1280 H Total Protein 6.0 L Albumin 3.0 L 2.6 L Diagnostic Findings Additional studies: ITS Impressions Chest X-Ray 11/29/24 06:53 Impression: 1: Masslike density right upper lobe, suspicious for malignancy. Correlation with CT chest recommended. 2: Right upper lobe airspace disease, compatible with pneumonia. Chest CTA 11/29/24 07:11
[2024-11-29 11:10] LABS: Toxigenic C. Diff NEGATIVE (NEGATIVE)
--- NOTE | 2024-11-29 11:33 | P.CONINF_ITS ---
Assessment and Plan Assessment and plan (1) Lobar pneumonia: Code(s): J18.1 - Lobar pneumonia, unspecified organism Status: Acute (2) Sepsis: Code(s): A41.9 - Sepsis, unspecified organism Status: Acute (3) COPD (chronic obstructive pulmonary disease): Code(s): J44.9 - Chronic obstructive pulmonary disease, unspecified Status: Acute (4) Transaminitis: Code(s): R74.01 - Elevation of levels of liver transaminase levels Status: Acute Plan # Right upper lobe lobar consolidation with acute onset over the last 2 weeks. Possibly associated with recent COVID infection although PCR analysis at this time is negative. Reports productive cough that is sometimes blood tinged. -- community-acquired pneumonia, possible pneumococcus. -- dense consolidation also raises the possibility of malignancy. 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 Right middle lobe process appears to have resolved on current CT scan. -- with relatively acute onset of symptoms, lack of consumptive symptoms, and no known TB exposure this diagnosis seems less likely. # Acute sepsis secondary to the above. # CoughMild transaminitis along with mild hyponatremia. -- may be associated with Legionella pneumonia although chest x-ray more consistent with classic bacterial lobar pneumonia. Plan: -- obtain sputum for Gram stain and culture. -- obtain urine Legionella and pneumococcal antigens. -- follow blood cultures. -- continue cefepime, metronidazole, and azithromycin for now. -- with negative nasopharyngeal PCR for SARS-CoV-2 she should not require respiratory isolation at this time. -- further recommendations to follow. Thank you for the consult. HPI Data of Consult Date/Time: 11/29/24 11:33 Requesting Physician: Doc Nolan MD Primary Care Provider: PHYSICIAN NOT ON STAFF Consult Narrative Reason for consult: Pneumonia Narrative: Fara Valencia is a 69 year old female with a 2 week history of progressive shortness of breath, dyspnea on exertion, and productive cough which is sometimes blood tinged. With initial onset of symptoms she was reportedly diagnosed as likely having COVID infection based on exposure history. Unclear if diagnosis proven through nasal pharyngeal swab testing. With progressive symptoms she was directed for ED evaluation yesterday. Not febrile but with significant leukocytosis around 30. Chest x-ray with masslike masslike density in right upper lobe consistent with pneumonia or malignancy. PCR analysis for influenza, SARS-CoV-2, and RSV all negative. mild transaminitis noted. Elevated BNP. Procalcitonin 2.1. There are no known antibiotic allergies. She has been placed on cefepime, metronidazole, and azithromycin. Of note, she had been followed for a masslike density in the right middle lobe since April of this year. At 1 point mass developed some cavitation. She has undergone several PET scans with suggestion of pneumonia rather than malignancy. Sputum workup in the past negative for specific bacterial pathogen, negative mycobacterial culture at 6 weeks, but positive for dematiaceous mold and Tanja proptosis with the former a possible contaminant and the latter a colonizer. Treated for pneumonia in the past. Has not had prior right upper lobe involvement other than possible panlobular emphysema. No current right middle lobe involvement on CT scan. She denies significant symptoms beyond the last 2 weeks. She denies unexplained weight loss or night sweats. No known history of or exposure to tuberculosis. Additional past medical history significant for COPD, osteoarthritis and degenerative joint disease, childhood hydrocephalus with prior MOLD CHECKER the old shunt placement, hypertension, and anxiety. Report of rheumatoid arthritis is now questioned. Review of Systems 2 Review of Systems: All systems reviewed & are unremarkable except as noted in HPI and below PMFSH Past Medical History Medical History Chronic neck and back pain COPD (chronic obstructive pulmonary disease) Right knee pain Other fatigue Effusion, left knee Effusion of knee joint right 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, bilateral Chronic, continuous use of opioids 30 mg morphine x 2 years Hydrocephalus as child Emphysema lung Rupture of proximal biceps tendon Mass of right upper extremity Left knee pain Right knee DJD Chronic pain Anxiety Hypertension Rheumatoid arthritis Surgical History Surgical History History of colonoscopy approx 2018 S/P ventricular shunt placement H/O left knee surgery History of surgery on wrist ORIF 07/15/22 Family History Family History (Updated 11/29/24 @ 02:45 by Jaswinder Marie RN) Unknown Arthritis Mother Kidney disease Social History Social History Social History: Smoking packs per day: 1 Smoking cigarettes per day: 20.0 Years smoked: 38 Smoking pack-years: 38.00 Smoking status: Former smoker Tobacco type: cigarettes Smoking end date: 11/03/06 Alcohol intake: never Substance use: never Substance use type: does not use Do You Feel Safe in your Home?: Yes Lack of Transportation: No Lack of Food: Never True Current Housing: I Have Housing Concerned About Future Housing: No Difficulty Paying Gas/Electric Bills: No Difficulty Paying for Meds: No Currently Unemployed: No Education: Associate Degree Difficulty w/ Childcare or Family Care: No Living arrangements: with family Additional living arrangements comments: Occupation/Education: occupation Additional 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 ;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 [employer] Gender identity (if verbalized by the patient): Female Spiritual care concerns: No Meds Home Medications and Allergies Home Medications ?Medication ?Instructions ?Recorded ?Confirmed ?Type alprazolam 0.5 mg tablet 1 tablet PO BID PRN Anxiety 10/20/21 11/29/24 History lisinopril 20 mg tablet 20 mg PO DAILY 07/14/2211/04 History albuterol sulfate 90 mcg/actuation 2 puff inhalation Q ID PRN 02/17/23 11/29/24 History aerosol inhaler Shortness Of Breath multivitamin with minerals-folic 1 tablet PO HS 11/29/24 History acid 80 mcg chewable tablet (Centrum Adult 50 Plus) pantoprazole 40 mg tablet,delayed 40 mg PO HS 02/17/23 11/29/24 History release aspirin 81 mg tablet,delayed 81 mg PO DAILY 03/19/23 0 11/29/24 History release (Adult Low Dose Aspirin) amlodipine 5 mg tablet 5 mg PO DAILY 11/29/2411/29 History gabapentin 100 mg capsule 100 mg PO Q12H 11/29/2411/04 History hydrocodone 5 mg-acetaminophen 325 1 tablet PO Q8H PRN pain 11/29/24 11/29/24 History mg tablet Allergies Allergy/AdvReac Type Severity Reaction Status Date / Time No Known Allergies Allergy Verified 11/29/24 01:57 Vital Signs Vital Signs - 24 hr 11/28/24 22:02 11/29/24 00:09 11/29/24 01:27 Temperature 99.2 F Pulse Rate 114 H 84 Respiratory Rate 17 18 Blood Pressure 111/58 L Pulse Oximetry 95 96 99 Oxygen Delivery Room Air Nasal Cannula Nasal Cannula Oxygen Flow Rate 2 2 Fraction of Inspired Oxygen 11/29/24 03:15 11/29/24 04:00 11/29/24 05:22 Temperature 96.7 F L Pulse Rate 86 87 Respiratory Rate 20 Blood Pressure 131/77 Pulse Oximetry 96 96 Oxygen Delivery Nasal Cannula Oxygen Flow Rate 2 Fraction of Inspired Oxygen 11/29/24 05:28 11/29/24 05:30 11/29/24 08:00 Temperature 97.8 F Pulse Rate 97 97 Respiratory Rate 20 20 Blood Pressure 119/80 Pulse Oximetry 95 95 98 Oxygen Delivery Nasal Cannula Nasal Cannula Oxygen Flow Rate 2 2 Fraction of Inspired Oxygen 11/29/24 08:25 11/29/24 09:02 11/29/24 09:10 Temperature 98.2 F Pulse Rate 90 89 90 Respiratory Rate 20 18 18 Blood Pressure 133/85 Pulse Oximetry 98 Oxygen Delivery Oxygen Flow Rate Fraction of Inspired Oxygen Exam 2 Narrative: Initially seen while undergoing med neb treatment. Awake, alert, interactive, and with mild respiratory distress. Normocephalic. No conjunctivitis. Mild respiratory increased effort. Abdomen not significantly distended. No evidence of rash. Results Labs 11/29/24 04:53 11/29/24 04:53 Labs: Short CBC 11/28/24 11/29/24 Range/Units 22:44 04:53 WBC 28.9 H 31.0 H (4.5-10.0) K/mm3 Hgb 9.4 L 9.1 L (12.0-15.0) g/dL Hct 28.9 L 28.2 L (37.0-47.0) % Plt Count 363 327 (150-375) k/mm3 BMP 11/28/24 11/29/24 22:44 04:53 Sodium 129 L 132 L Potassium 3.0 L 3.6 Chloride 99 107 Carbon Dioxide 21 L 20 L BUN 22 H 16 Creatinine 0.99 0.82 Glucose 123 H 142 H Calcium 8.7 8.3 L Cardiac Enzymes 11/28/24 11/29/24 11/29/24 Range/Units 22:44 00:59 04:53 Troponin I 0.013 0.012 < 0.012 (0.000-0.034) ng/mL Liver Function 11/28/24 11/29/24 Range/Units 22:44 04:53 Total Bilirubin 0.7 0.5 (0.2-1.3) mg/dL AST 77 H 63 H (14-36) U/L ALT 75 H 65 H (6-35) U/L Alkaline Phosphatase 157 H 153 H (38-126) U/L Albumin 3.0 L 2.6 L (3.5-5.1) g/dL
[2024-11-29 12:42] LABS: MRSA (PCR) NOT DETECTED (NOT DETECTE)
--- NOTE | 2024-11-29 13:41 | P.HP_ITS ---
H&P: HPI History of Present Illness Date/Time: 11/29/24 13:41 Chief Complaint: SOB Narrative: Patient is a 69-year-old female who presented to the emergency department with complaints worsening shortness of breath stating she believed she had pneumonia again. Patient with past medical history of COPD, hypertension, CKD, OA, and hydrocephalus with SOLAR MANAGER shunt as a child. Patient states 1 week prior she had duyen archie positive for COVID-19 since testing positive she has had increased shortness of breath, nausea, diarrhea and productive cough. Patient had went for a follow-up per primary care physician's office at which time she had standard labs drawn she was instructed to go to the emergency department after she was found to have an elevated WBC for concerns worsening pneumonia. Patient denied any chest pain, dizziness, vomiting, fever chills. Patient reports to was doing supportive care at home with no relief. Patient did have previous follow-up with pulmonology back in July at which time she had PFT testing a 6 minute walk study and PET scan PET Scan 07/06/24; IMPRESSION: Mild uptake associated with multiple new regions of consolidation and patchy airspace opacities in both lungs which given the appearance, distribution and rapid progression most consistent with evolving pneumonia. Small region of discoid atelectasis without abnormal FDG uptake at the site of the prior large masslike opacity in the right middle lobe consistent with resolving pneumonia. No other FDG avid lesions suspicious for primary malignancy or metastatic disease. PET is consistent with pneumonia, not cancer. In the ED: Emergency department patient with WBC 28.9, hemoglobin 9.4, NA 129, AST/ALT 63/65 Alkphos 153, CRP 26.1, ESR 125, procal 2.1. C-diff negative, COVID/Influenza/RSV negative. CTA with extensive masslike consolidation right upper lobe with surrounding airspace consolidation consistent with pneumonia. No lactic done. Review of Systems 2 Review of Systems: All systems reviewed & are unremarkable except as noted in HPI and below PMFSH Past Medical History Medical History Chronic neck and back pain COPD (chronic obstructive pulmonary disease) Right knee pain Other fatigue Effusion, left knee Effusion of knee joint right 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, bilateral Chronic, continuous use of opioids 30 mg morphine x 2 years Hydrocephalus as child Emphysema lung Rupture of proximal biceps tendon Mass of right upper extremity Left knee pain Right knee DJD Chronic pain Anxiety Hypertension Rheumatoid arthritis Surgical History Surgical History History of colonoscopy approx 2018 S/P ventricular shunt placement H/O left knee surgery History of surgery on wrist ORIF 07/15/22 Family History Family History Unknown Arthritis Mother Kidney disease Social History Social History Social History: Smoking packs per day: 1 Smoking cigarettes per day: 20.0 Years smoked: 38 Smoking pack-years: 38.00 Smoking status: Former smoker Tobacco type: cigarettes Smoking end date: 11/03/06 Alcohol intake: never Substance use: never Substance use type: does not use Do You Feel Safe in your Home?: Yes Lack of Transportation: No Lack of Food: Never True Current Housing: I Have Housing Concerned About Future Housing: No Difficulty Paying Gas/Electric Bills: No Difficulty Paying for Meds: No Currently Unemployed: No Education: Associate Degree Difficulty w/ Childcare or Family Care: No Living arrangements: with family Additional living arrangements comments: Occupation/Education: occupation 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 ;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 [employer] Gender identity (if verbalized by the patient): Female Spiritual care concerns: No Meds Home Medications and Allergies Home Medications ?Medication ?Instructions ?Recorded ?Confirmed ?Type alprazolam 0.5 mg tablet 1 tablet PO BID PRN Anxiety 10/20/21 11/29/24 History lisinopril 20 mg tablet 20 mg PO DAILY 07/14/2211/04 History albuterol sulfate 90 mcg/actuation 2 puff inhalation Q ID PRN 02/17/23 11/29/24 History aerosol inhaler Shortness Of Breath multivitamin with minerals-folic 1 tablet PO HS 11/29/24 History acid 80 mcg chewable tablet (Centrum Adult 50 Plus) pantoprazole 40 mg tablet,delayed 40 mg PO HS 02/17/23 11/29/24 History release aspirin 81 mg tablet,delayed 81 mg PO DAILY 03/19/23 0 11/29/24 History release (Adult Low Dose Aspirin) amlodipine 5 mg tablet 5 mg PO DAILY 11/29/2411/29 History gabapentin 100 mg capsule 100 mg PO Q12H 11/29/24 08/10/27 History hydrocodone 5 mg-acetaminophen 325 1 tablet PO Q8H PRN pain 11/29/24 11/29/24 History mg tablet Allergies Allergy/AdvReac Type Severity Reaction Status Date / Time No Known Allergies Allergy Verified 11/29/24 01:57 Vital Signs Vital Signs - 24 hr 11/28/24 22:02 11/29/24 00:09 11/29/24 01:27 Temperature 99.2 F Pulse Rate 114 H 84 Respiratory Rate 17 18 Blood Pressure 111/58 L Pulse Oximetry 95 96 99 Oxygen Delivery Room Air Nasal Cannula Nasal Cannula Oxygen Flow Rate 2 2 Fraction of Inspired Oxygen 11/29/24 03:15 11/29/24 04:00 11/29/24 05:22 Temperature 96.7 F L Pulse Rate 86 87 Respiratory Rate 20 Blood Pressure 131/77 Pulse Oximetry 96 96 Oxygen Delivery Nasal Cannula Oxygen Flow Rate 2 Fraction of Inspired Oxygen 11/29/24 05:28 11/29/24 05:30 11/29/24 08:00 Temperature 97.8 F Pulse Rate 97 97 Respiratory Rate 20 20 Blood Pressure 119/80 Pulse Oximetry 95 95 98 Oxygen Delivery Nasal Cannula Nasal Cannula Oxygen Flow Rate 2 2 Fraction of Inspired Oxygen 28 11/29/24 08:25 11/29/24 09:02 11/29/24 09:10 Temperature 98.2 F Pulse Rate 90 89 90 Respiratory Rate 20 18 18 Blood Pressure 133/85 Pulse Oximetry 98 Oxygen Delivery Oxygen Flow Rate Fraction of Inspired Oxygen 11/29/24 12:45 Temperature Pulse Rate Respiratory Rate Blood Pressure Pulse Oximetry 94 Oxygen Delivery Room Air Oxygen Flow Rate Fraction of Inspired Oxygen Exam Const: General: comfortable and no acute distress Other: Pleasant female Eyes: General: appearance normal, both eyes and all related structures Sclera: sclerae normal Pupils: Equal, round and reactive pupils present EOM: EOMs intact bilaterally Neck: Neck: supple and no JVD Resp: Auscultation: diminished lung sounds on the right in the upper lung gauthier Cardio: Rate: regular rate Rhythm: regular rhythm GI: GI Palp: Yes Soft to palpation Auscultation: normal bowel sounds Skin: General skin exam: normal color Wounds: no wounds Neuro: General: gait normal Speech: normal speech Motor exam (neuro): 5/5 motor strength present throughout Sensory Exam: normal sensation Extrem: General: normal to inspection H&P: Results Labs Labs: Short CBC 11/28/24 11/29/24 Range/Units 22:44 04:53 WBC 28.9 H 31.0 H (4.5-10.0) K/mm3 Hgb 9.4 L 9.1 L (12.0-15.0) g/dL Hct 28.9 L 28.2 L (37.0-47.0) % Plt Count 363 327 (150-375) k/mm3 BMP 11/28/24 11/29/24 22:44 04:53 Sodium 129 L 132 L Potassium 3.0 L 3.6 Chloride 99 107 Carbon Dioxide 21 L 20 L BUN 22 H 16 Creatinine 0.99 0.82 Glucose 123 H 142 H Calcium 8.7 8.3 L Cardiac Enzymes 11/28/24 11/29/24 11/29/24 Range/Units 22:44 00:59 04:53 Troponin I 0.013 0.012 < 0.012 (0.000-0.034) ng/mL Liver Function 11/28/24 11/29/24 Range/Units 22:44 04:53 Total Bilirubin 0.7 0.5 (0.2-1.3) mg/dL AST 77 H 63 H (14-36) U/L ALT 75 H 65 H (6-35) U/L Alkaline Phosphatase 157 H 153 H (38-126) U/L Albumin 3.0 L 2.6 L (3.5-5.1) g/dL Imaging CT scan - chest: Radiologist's impression: EXAMINATION: CTA chest PE protocol DATE: 11/29/2024 7:11 CDT INDICATION: Shortness of breath and hypoxia TECHNIQUE: Computed tomographic angiography (CTA) of the chest was performed with 100 mL Omnipaque-350 intravenous contrast. The dose-length product was 197.28 mGy-cm. Maximum intensity projection 3D-reconstructions of the aorta and other arteries were constructed by the technologist on a separate workstation. COMPARISON: CT dated 05/19/2024. FINDINGS: There is extensive masslike consolidation right upper lobe with surrounding pneumonia. There is atherosclerosis of the aorta without evidence for aneurysm or dissection. Small pericardial effusion. Study is technically adequate without evidence for pulmonary embolism. Trace right pleural effusion. Mild thoracic spondylosis with accentuated kyphosis. IMPRESSION: 1. Extensive masslike consolidation right upper lobe with surrounding airspace consolidation, consistent with pneumonia. Recommend follow-up CT in 2-3 months following appropriate therapy to exclude underlying mass. 2: Small pericardial effusion. Trace right pleural effusion. Assessment and Plan Assessment and plan (1) Sepsis: Qualifiers: Sepsis acute organ dysfunction status: unspecified Sepsis type: sepsis due to unspecified organism Qualified Code(s): A41.9 - Sepsis, unspecified organism Code(s): A41.9 - Sepsis, unspecified organism Status: Acute Assessment and Plan: Meeting at SIRS criteria likely secondary to underlying lobar pneumonia recent COVID infection testing positive a week prior but is not currently positive * Infectious disease consulted changed IV antibiotics to cefepime, Flagyl and azithromycin * empiric IV antibiotic therapy * sputum culture * Two sets of blood cultures pending * C-reactive proteins elevated * procalcitonin level 2.1 * PTT and PT, INR. * ESR 125 (2) Lobar pneumonia: Code(s): J18.1 - Lobar pneumonia, unspecified organism Status: Acute Assessment and Plan: CTA showing AA in extensive masslike consolidation right upper lobe with surrounding airspace consolidation consistent with pneumonia. MRSA negative * See Above #1 * Bronchodilators. * Guaifenesin * incentive spirometry while awake. * sputum culture ordered * influenza/COVID/RSV negative * respiratory panel * Legionella, mycoplasma chlamydia pneumoniae pending * supplemental oxygen therapy to maintain oxygen 92% * Pulmonary consulted (3) Transaminitis: Code(s): R74.01 - Elevation of levels of liver transaminase levels Status: Acute Assessment and Plan: Patient with elevated liver enzymes POA denies any abdominal tenderness * U/S pending * Hepatitis panel * Trend (4) Acute hyponatremia: Code(s): E87.1 - Hypo-osmolality and hyponatremia Status: Acute Assessment and Plan: Patient hyponatremic 129 POA Likely secondary to dehydration improving fluids * IV fluids * Trend daily labs * Encourage oral intake (5) COPD (chronic obstructive pulmonary disease): Code(s): J44.9 - Chronic obstructive pulmonary disease, unspecified Status: Acute Assessment and Plan: Patient was previous smoker with history of COPD * Inhalers p.r.n. continued * DuoNebs scheduled * Supplemental oxygen wean as tolerated to maintain 92% (6) Hypertension: Code(s): I10 - Essential (primary) hypertension Status: Chronic Assessment and Plan: Patient with history of hypertension primary care physician recently discontinued patient's amlodipine and lisinopril * Monitor BP per unit protocol Plan Code status: Full code per patient DVT prophylaxis: Lovenox Stress ulcer prophylaxis: NA PT/OT notes: Ambulatory with walker Disposition: Patient admitted to the medical unit for further evaluation and treatment pneumonia consult to Pulmonary and Infectious Disease continue with current treatment plan patient was ambulatory with walker however may need evaluation by PT/OT prior to discharge for any further discharge planning needs. Quality VTE Prophylaxis VTE prophylaxis: pharmacologic ordered -Patient's previous records reviewed on admission -ER notes reviewed in detail on admission -discussed all findings and current treatment plan with patient/Family/POA -Consultations reviewed for recommendations -Patient's disposition for safe discharge discussed with skilled nursing case manager Dictation performed by [employer] direct speech recognition software, therefore power generation equipment repairer variants and typographical errors may occur. Hospitalist MIPS Advance Care Plan I have confirmed that the patient's Advanced Care Plan is present, code status is documented, or surrogate decision maker is listed in patient medical record.: Yes Medication Reconciliation I have utilized all available resources to obtain, update and review the patients current medications (includes all prescriptions, OTC, herbals, cannabis, and nutritional supplements).: Yes The patient is not eligible for med reconciliation; the patient is in a emergent medical situation where delaying treatment would jeopardize the patients health.: No
[2024-11-29] MEDS: IPRATROPIUM 0.5 MG/ALBUTEROL SULFATE 2.5 MG AMPUL.NEB 3 ML INHALATION ×2 (14:17→19:47)
[2024-11-29 15:10] LABS: Hepatitis B Surface Antigen Negative (Negative)
[2024-11-29 15:16] LABS: HAV RESULT Negative (Negative); Hepatitis B Core IgM Result Negative (Negative)
[2024-11-29 16:09] LABS: Alveolar/Arterial O2 Gradient 125.0 mmHg; HCO3 ABG 20.8 mEq/l (22.0-26.0); Oxygen Content ABG 19.8 %vol (16.0-22.0); Oxygen Saturation ABG 93.4 % (95.0-100.0); PCO2 ABG 32.6 mmHg (35.0-45.0); PO2 ABG 65.0 mmHg (80.0-100.0); PO2 FiO2 Ratio Arterial Blood 2.03 %
[2024-11-29 16:12] LABS: Modified Allen's Test Pass; Site Drawn RIGHT BRACHIAL
[2024-11-29 16:13] LABS: Fractional Inspired Oxygen 21 %
[2024-11-29] MEDS: PANTOPRAZOLE 40 MG TABLET PO (21:04)
[2024-11-29] MEDS: MULTIVITS W-FE,MIN CHEWABLE TABLET 1 TABLET PO (21:04)
[2024-11-29] MEDS: guaiFENesin 12 HR 600 MG TABCR 1200 MG PO (21:04)
[2024-11-29] MEDS: AZITHROMYCIN 250 MG/NS 250 ML 250 MG/250 ML BAG IVPB (23:05)
[2024-11-30] VITALS (21 sets, daily range): BP systolic 94–144; BP diastolic 60–90; PULSE 85–110; RESP 16–23; TEMP 36.2–37.6; O2SAT 91–99
[2024-11-30] MEDS: IPRATROPIUM 0.5 MG/ALBUTEROL SULFATE 2.5 MG AMPUL.NEB 3 ML INHALATION ×4 (02:08→20:58)
[2024-11-30] MEDS: ACETYLCYSTEINE 20% INHAL SOLN 800 MG/4 ML VIAL 200 MG INHALATION ×4 (02:30→20:57)
[2024-11-30] MEDS: CEFEPIME 2 GM in SODIUM CHLORIDE 0.9% IV 50 ML 100 ML IVPB ×3 (05:08→21:36)
[2024-11-30] MEDS: LOPERAMIDE HCL 2 MG CAPSULE PO (05:08)
[2024-11-30] MEDS: metroNIDAZOLE 500 MG/ISO 100ML 500 MG/100 ML BAG 100 MG IVPB ×3 (05:09→22:17)
--- NOTE | 2024-11-30 06:40 | PCRCNOTE ---
RT tried several time to obtain sputum sample, but patient was receiving nursing care each time
[2024-11-30 06:43] LABS: Hematocrit 28.8 % (37.0-47.0); Hemoglobin 9.4 g/dL (12.0-15.0); Immature Granulocyte Percent A 1.3 % (0-0.5); Lymphocytes Absolute Auto 1.02 K/mm3 (0.9-3.2); Mean Corpuscular HGB Conc 32.6 g/dl (32-36); Mean Corpuscular Hemoglobin 30.6 pg (26-34); Mean Corpuscular Volume 93.8 fl (80-100); Nucleated Red Blood Cells Absolute Auto 0.000 K/mm3 (0.0-0.012); Nucleated Red Blood Cells Perc 0.0 % (0.0-0.2); Platelet Count Result 354 k/mm3 (150-375); Red Blood Count 3.07 M/mm3 (4.2-5.4); White Blood Count 21.2 K/mm3 (4.5-10.0)
[2024-11-30 07:09] LABS: Alanine Aminotransferase 61 U/L (6-35); Albumin Level 2.9 g/dL (3.5-5.1); Alkaline Phosphatase 164 U/L (38-126); Anion Gap 8 mmol/L (4-12); Aspartate Amino Transferase 56 U/L (14-36); Bilirubin,Total 0.4 mg/dL (0.2-1.3); Blood Urea Nitrogen 10 mg/dL (7-17); Calcium 8.9 mg/dL (8.4-10.2); Carbon Dioxide 26 mmol/L (22-30); Chloride 98 mmol/L (98-107); Estimated CRCL calculation 64 ml/min; Estimated Glomerular Filt Rate > 60; Glucose 107 mg/dL (65-110); Magnesium 1.5 mg/dL (1.6-2.3); Potassium 3.0 mmol/L (3.4-5.0); Sodium 132 mmol/L (137-145); Total Protein 6.6 g/dL (6.3-8.2)
[2024-11-30 07:24] LABS: Procalcitonin 1.5 ng/mL
[2024-11-30 08:02] LABS: CRP 23.7 mg/dL (<1.0)
[2024-11-30] MEDS: GABAPENTIN 100 MG CAPSULE PO ×2 (09:53→21:34)
[2024-11-30] MEDS: ENOXAPARIN 40 MG/0.4 ML SYRINGE SUB-Q (09:54)
[2024-11-30] MEDS: guaiFENesin 12 HR 600 MG TABCR 1200 MG PO ×2 (09:54→21:35)
[2024-11-30] MEDS: ASPIRIN 81 MG ENTERIC TABLET PO (09:54)
--- NOTE | 2024-11-30 09:56 | P.PNPL_ITS ---
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 COVID, influenza, RSV RT PCR assay negative, MRSA nasal swab negative. 11/29/24: Plan: Continue cefepime, azithromycin and Flagyl. Blood and sputum cultures pending. Respiratory pathogen panel, urine for Streptococcus, urine for Legionella, chlamydia PCR, mycoplasma PCR all pending. Goal saturation 90-94%. Currently she is on room air. Infectious disease consultation following. 11/30/24: The patient tells me she is feeling better. States she has 20% back to her baseline. Her cough is unchanged. She is producing calderon phlegm with no blood. Her dyspnea on exertion is worse than when she came to the hospital. Patient had a fever last night at 38.3. Currently she is on room air with saturations 94%. White blood cell count improved to 21.2, creatinine 0.79. CRP is minimally improved from 26.1 on 11/29/2024 to 23.7 today. Procalcitonin is improved from 2.1 yesterday to 1.5 today. yesterday she was 1.5 L positive, cumulative she is 1.9 L positive since admission. Plan: patient had a fever last night. Clinically the patient has improved, oxygenation has improved, leukocytosis has improved, minimal improvement in CRP. Continue cefepime ( started 11/28), azithromycin ( started 11/28) and Flagyl ( started 11/29). I will check a chest x-ray tomorrow morning. Will follow with you. (2) COPD (chronic obstructive pulmonary disease): Code(s): J44.9 - Chronic obstructive pulmonary disease, unspecified Status: Acute Assessment and Plan: GOLD grade 2 group B COPD Patient with 40 pack year tobacco use, quit 2017, currently smoking 2-3 marijuana cigarettes a day, PFTs on 07/07/2024 with moderately severe obstructive abnormality, FEV1 1.44 L, 57% predicted, ratio 53% predicted. No bronchodilator response, normal lung volumes moderately decreased DLCO that remains mildly decreased when adjusted for alveolar volume. CT scan of the chest on 04/17/2024 as well as 11/29/2024 demonstrates moderate to severe apical predominant centrilobular emphysema. She is on no home oxygen. 11/28/2021 white blood cell count 28.9, eosinophils 0.2%=58/uL. At baseline she can walk a quarter of a mi and then stops for respiratory insufficiency, she has shortness of breath with her activities of daily living. She is maintained on trelegy 100- 62.5-25 at 1 puff q.day 11/29/24: Currently the patient is not wheezing and I do not believe she is having a COPD exacerbation. Plan: patient with the pneumonia and I will discontinue inhaled corticosteroids. Place the patient on DuoNebs q.6 hours and Mucomyst nebulizers q.6 hours. Will add guaifenesin to 1200 mg p.o. b.i.d. I will check an ABG to exclude hypercarbic respiratory failure. Room air ABG later in the day was 7.42/33/65 12/01/24: I do not believe the patient is having a COPD exacerbation. ABG d emonstrates no hypercarbic respiratory failure. Currently she is on room air. Plan: Continue DuoNebs and Mucomyst nebulizers q.6 hours. continue guaifenesin 1200 mg p.o. b.i.d.. I will add a Cornet flutter valve. Goal saturation 90-94%. Subjective Date/time seen: 11/30/24 09:56 Interval history: 11/29/2024: This is a new pulmonary consult for right upper lobe pneumonia. 69-year-old with a history of COPD, hypertension, CKD, osteoarthritis, hydrocephalus with ROUGH RIB GRADER shunt as a child. Regarding her COPD. Patient smoked cigarettes from age [age] a 1 pack per day for total of 40 pack years. Patient smokes marijuana 2-3 cigarettes a day for the last 40 years. Denies any illicit drug use. She was exposed to secondhand smoke from both of her parents and from her until 2006. 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 To 3 weeks ago the patient could walk a quarter of a mi then have to stop for dyspnea on exertion. Overall she can walk 2 miles in 1 hour. She does have some shortness of breath with her activities of daily living. At baseline her room air saturations are 91-92%. 04/17/2024: Patient presented to the emergency department at [facility] with 2 weeks nausea, vomiting, diarrhea right-sided chest pain, pleuritic in nature, room air saturations 96%., Leukocytosis 17.9, and CT angiogram of the chest that showed moderate to severe apical predominant panlobular emphysema, large masslike consolidation right middle lobe. patient was discharged on oscar thromycin. No infiltrate or mass in the right upper lobe. Discharged from the emergency department. 05/19/2024: CT scan of the chest with decreased size of the right middle lobe infiltrate and mass now with a cavity. no infiltrate or mass in the right upper lobe. Patient was previously seen in the [facility]monary [facility] on 06/27/2024 for COPD and decreasing right middle lobe cavity. Patient smoked tobacco Quit in 2017and marijuana, does not wheeze, no weight loss. Using trilogy and rescue albuterol 1 to 2 times a day. Daily cough with clear secretions sometimes yellow. Last pneumonia was 2017. plan: PET scan, PFTs, 6 minute walk, sputum for bacterial fungal and AFB X 3. 07/06/2024: CT-PET: Continue decreased size of the right middle lobe infiltrate and cavity now with no cavity and scarring. Small nodule inferior right upper lobe with an SUV of 1.7, patchy airspace opacities in the lower lobes with maximal SUV 3.7 on the right and 2.4 on the left. lingular posteri or consolidation with an SUV of 5.6. He these were new since 05/19/2024 and consistent with pneumonia. 07/12/2024: Dr. Haider called her, reviewed all test results 07/12/2024. 1) PET Scan 07/06/24; IMPRESSION: Mild uptake associated with multiple new regions of consolidation and patchy airspace opacities in both lungs which given the appearance, distribution and rapid progression most consistent with evolving pneumonia. Small region of discoid atelectasis without abnormal FDG uptake at the site of the prior large masslike opacity in the right middle lobe consistent with resolving pneumonia. No other FDG avid lesions suspicious for primary malignancy or metastatic disease. PET is consistent with pneumonia, not cancer. 2) Sputum; sputum on 06/29/2024 Normal jackie, AFB smear negative, AFB culture negative at 6 weeks. No fungal elements seen. Scant growth of Tanja parapsilosis sp. Isolate #2: dematiaceous mold isolated. Sputum 06/30/2024: Growth of normal jackie. AFB smear negative, AFB culture negative at 6 weeks. No fungal elements seen. Growth of an unidentified mold not resembling any of the known human pathogens on the fungal culture. Sputum 07/01/2024: Growth of normal jackie, AFB smear negative, AFB cultures negative at 6 weeks. No fungal elements seen, no fungal growth at 4 weeks. 3) 6 minute walk showed that she completed is 273 m, 900 ft, did not desaturate. 4) PFT show moderate obstructive ventilatory impairment without response to bronchodilator, and she is on Trelegy 100, did not appear on her med list on the first office visit. She is on treatment, CAT score is low, nothing else needed right now. 5) She found out that her primary care doctor does not have rheumatoid arthritis as a diagnosis. During her initial visit, she told me that she had RA but now we know, she does not. This was important because RA can cause cavitary lung lesions. 11/28/2024: Patient presented to the emergency department with shortness of breath and dyspnea on exertion. on 11/19/2024 after being exposed to her son in law and daughter who were COVID positive she tested COVID positive. She had a fever, cough, increased phlegm production that was calderon with occasional hemoptysis. Her symptoms progressed and on 11/28 she went to a PCP and had an elevated white blood cell count was told to come to the emergency department. She was afebrile. Blood pressure 111/58, heart rate 114, respirations 17, room air saturations 95% and then placed on 2 L with saturations 96%. She had decreased breath sounds in the right upper lobe. White blood cell count 28.9 with eosinophils 0.2%. Creatinine 0.99, COVID influenza and RSV RT PCR assay negative. Chest x-ray with dense consolidation right upper lobe. CT angiogram of the chest compared to PET scan CT on 07/06/2024 showed no change in her apical predominant panlobular emphysema, new dense right upper lobe consolidative infiltrate, unchanged right middle lobe scarring -atelectasis, resolved bilateral lower lobe infiltrates, resolved lingular infiltrates. Patient was given 1 L IV fluids. 11/29/2024: infectious disease consulted, antibiotics changed to cefepime, Flagyl and azithromycin. currently the patient tells me she feels the same as yesterday. When I enter the room she was on 2 L nasal cannula saturation 97%. I decreased her to room air and her saturations were 94%. White blood cell count 31.0, creatinine 0.82, CRP 26.1, procalcitonin 2.1, BNP 1280, MRSA nasal swab PCR negative. room air ABG later in the day was 7 0.42/33/65 11/30/24: The patient tells me she is feeling better. States she has 20% back to her baseline. Her cough is unchanged. She is producing calderon phlegm with no blood. Her dyspnea on exertion is worse than when she came to the hospital. Patient had a fever last night at 38.3. Currently she is on room air with saturations 94%. White blood cell count improved to 21.2, creatinine 0.79. CRP is minimally improved from 26.1 on 11/29/2024 to 23.7 today. Procalcitonin is improved from 2.1 yesterday to 1.5 today. yesterday she was 1.5 L positive, cumulative she is 1.9 L positive since admission. DATA: 11/29/2024; EXAMINATION: CTA chest PE protocol INDICATION: Shortness of breath and hypoxia COMPARISON: CT dated 05/19/2024. FINDINGS: There is extensive masslike consolidation right upper lobe with bre rounding pneumonia. There is atherosclerosis of the aorta without evidence for aneurysm or dissection. Small pericardial effusion. Study is technically adequate without evidence for pulmonary embolism. Trace right pleural effusion. Mild thoracic spondylosis with accentuated kyphosis. IMPRESSION: 1. Extensive masslike consolidation right upper lobe with surrounding airspace consolidation, consistent with pneumonia. Recommend follow-up CT in 2-3 months following appropriate therapy to exclude underlying mass. 2: Small pericardial effusion. Trace right pleural effusion. 07/06/2024: EXAMINATION: PET skull to mid thigh INDICATION: Lung nodule COMPARISON: Chest CT dated 05/19/2024 and 04/17/2024 FINDINGS: Head/neck: There is symmetric increased activity in the oral cavity, palatine and lingual tonsils, parotid glands, submandibular glands, laryngeal muscles and ocular muscles without CT correlate, likely physiologic. There is linear increased FDG uptake extending anteroposteriorly along the right C3-C4 facet joint with corresponding severe osteoarthritis on CT and likely degenerative in etiology. No pathologically enlarged cervical lymphadenopathy or suspicious foci of increased FDG uptake in the visualized head or neck. Chest: Moderate emphysema. Continued evolution in patchy bilateral lung disease with near complete resolution of the previously large masslike region of consolidation seen on study from 04/17/2024 which developed some central cavitation on the more recent study from 05/19/2024 which is continued to significantly decrease in the size now with horizontal bandlike configuration consistent with residual atelectasis/scarring related to prior pneumonia. There is mild FDG uptake associated with a new small nodular opacity in the inferior right upper lobe with maximal SUV of 1.7, new patchy airspace opacities in the bilateral lower lobes with maximal SUV of 3.7 on the right and 2.4 on the left and a larger region of consolidation at the posterior lingula with maximal SUV of 5.6. These are all new since the prior study consistent with pneumonia. No pleural effusion. Heart size is normal. No pericardial effusion. Thoracic aorta is normal in caliber. No pathologically enlarged or abnormally FDG avid thoracic lymphadenopathy. Small focus of increased activity at the medial aspect of the right supraspinatus muscle without radiologic correlate which is likely physiologic. Small focus of increased uptake along the basilic vein at the distal right upper arm which is a small focus of uptake along the brachial vein likely representing minimal extravasation at the site of injection and adjacent mild lymphatic uptake activity. The mild uptake along the left triceps muscle without radiologic correlate also likely physiologic. Abdomen/pelvis/proximal thighs: Physiologic renal accumulation and excretion of FDG activity in the kidneys, bladder and along portions of ureters. Normal degree and heterogenous pattern of increased uptake throughout the liver without radiologic correlate or dominant FDG avid lesion. The gallbladder, pancreas, spleen and bilateral adrenal glands are normal. Mild uptake scattered throughout the bowels without radiologic correlate, also likely physiologic. No other abnormal foci of increased FDG uptake or pathologically enlarged lymphadenopathy in the abdomen, pelvis or proximal thighs. Musculoskeletal: Severe lumbar spondylosis. No other suspicious lytic, blastic or abnormally FDG avid bone lesions to suggest osseous metastatic disease. IMPRESSION: 1. Mild uptake associated with multiple new regions of consolidation and patchy airspace opacities in both lungs which given the appearance, distribution and rapid progression most consistent with evolving pneumonia. Small region of discoid atelectasis without abnormal FDG uptake at the site of the prior large masslike opacity in the right middle lobe consistent with resolving pneumonia. 2. No other FDG avid lesions suspicious for primary malignancy or metastatic disease. 05/19/24: Clinical indication:Right lung mass COMPARISON:04/17/2024 FINDINGS: LUNG:Interval decrease in size of the mass within the right middle lobe, now demonstrating cavitation for which a possible fungal etiology is suspected. The remainder of the lungs are clear. MEDIASTINUM:No pathologically enlarged or morphologically suspicious lymph nodes within the mediastinum. HEART:The heart is of normal size, without pericardial effusion. SOFT TISSUES OF THE CHEST: Unremarkable BONES OF THE CHEST: No lytic or blastic lesions identified IMPRESSION: Interval decrease in size of the abnormality seen within the right middle lobe on previous study, now demonstrating a central cavity, possibly fungal in origin. 04/17/2024: EXAMINATION: CTA chest PE protocol INDICATION: Shortness of breath with elevated d-dimer. Pulmonary embolus suspected clinically COMPARISON: Reference is made to CT examination of the chest dated 05/20/2023. Reference is also made to plain film evaluation of the chest, performed the same day. FINDINGS: No filling defect is identified within the main or proximal pulmonary arteries. The main pulmonary artery is enlarged, suggesting pulmonary hypertension. Intrapulmonary lymph node measuring 6 mm in short axis dimension is redemonstrated within the right middle lobe, increased in size since 05/20/2023. Interval development of a focus of soft tissue attenuation between the right middle and right lower lobes. Blood vessels course through this abnormality, rather than traversing around the abnormality. Severe panlobular emphysematous disease is also noted, as is a small right-sided pleural effusion. The thoracic aorta is nonaneurysmal. No dissection is appreciated Within the upper abdomen: The bilateral adrenal glands are unremarkable. Gallbladder is decompressed, and otherwise unremarkable. IMPRESSION: Panlobular emphysematous disease with interval development of a mass of soft tissue attenuation within the right hemithorax, with surrounding groundglass opacification. The rapidity of growth along with the leukocytosis suggest infectious etiology, rather than malignancy. Follow-up to resolution is recommended, as a malignancy may have a similar appearance No pulmonary embolus. No aortic dissection. 05/21/2023: Clinical Indication: Sepsis CT Scan of the Chest, Abdomen, and Pelvis without Contrast: Findings: There is no evidence of any significant mediastinal, hilar or axillary lymphadenopathy. The mediastinal soft tissues appear normal. Small to moderate pericardial effusion. There is no evidence of pleural or pericardial effusion. The lungs are clear. No pulmonary nodules or infiltrates are noted. Moderate emphysema present. The liver, spleen, pancreas, gallbladder, adrenals and kidneys are within normal limits. There are atherosclerotic calcifications of the aorta. No lymphadenopathy. No bowel obstruction or bowel wall thickening. There is no evidence to suggest acute appendicitis. Urinary bladder is unremarkable. No pelvic mass seen. No ascites. Impression: Moderate emphysema. [id number] pericardial effusion. No significant abnormality evident in the abdomen or pelvis. Review of Systems Constitutional: Constitutional: Reports no additional constitutional complaints Eyes: Eyes: Reports no additional eye complaints ENT: Reports system reviewed and no additional complaints, except as document ed Cardiovascular: Cardiovascular: Reports no additional cardiovascular complaints Respiratory: Respiratory: Reports no additional respiratory complaints Gastrointestinal: Gastrointestinal: Reports no additional gastrointestinal complaints Musculoskeletal: Musculoskeletal: Reports no additional musculoskeletal complaints Neurologic: Reports system reviewed and no additional complaints, except as documented Psychiatric: Psychiatric: Reports no additional psychiatric complaints Endocrine: Endocrine: Reports no additional endocrine complaints Hematologic/Lymphatic: Hematologic/Lymphatic: Reports no additional hematologic/lymphatic complaints Allergic/Immunologic: Allergic/Immunologic: Reports no additional allergic/immunologic complaints Exam Const: General: cooperative, comfortable and uncomfortable Orientation/consciousness: oriented to person, oriented to place and oriented to time Other: no respiratory distress. HENMT: Head: normal to inspection Ears: hearing grossly normal bilaterally Eyes: General: appearance normal, both eyes and all related structures Neck: Neck: normal visual inspection Chest: Chest palpation & inspection: normal inspection of the chest Resp: Effort & Inspection: normal respiratory effort and able to speak in complete sentences Auscultation: no crackles, no rales, no rhonchi, no wheezes and diminished lung sounds Other: Decreased breath sounds throughout, Cardio: Jugular venous distension: no JVD GI: Inspection: normal to inspection Skin: General skin exam: normal color Neuro: General: oriented to person, oriented to place and oriented to time Extrem: General: normal to inspection Psych: Appearance: grossly normal Objective Data Vital Signs Vital Signs: Vital Signs - 24 hr 11/29/24 12:00 11/29/24 12:00 11/29/24 12:45 Temperature 37.0 C Pulse Rate 89 105 H Respiratory Rate 24 H Blood Pressure 128/78 Pulse Oximetry 98 94 Oxygen Delivery Room Air Oxygen Flow Rate Fraction of Inspired Oxygen 11/29/24 14:00 11/29/24 14:19 11/29/24 14:29 Temperature 37.0 C Pulse Rate 110 H 96 95 Respiratory Rate 24 H 18 18 Blood Pressure 153/87 H Pulse Oximetry 94 Oxygen Delivery Oxygen Flow Rate Fraction of Inspired Oxygen 11/29/24 16:00 11/29/24 16:00 11/29/24 19:45 Temperature 36.6 C Pulse Rate 93 96 Respiratory Rate 20 Blood Pressure 133/79 Pulse Oximetry 96 98 Oxygen Delivery Nasal Cannula Oxygen Flow Rate 2 Fraction of Inspired Oxygen 11/29/24 19:49 11/29/24 20:00 11/29/24 20:00 Temperature Pulse Rate 103 H 110 H 110 H Respiratory Rate 18 20 Blood Pressure Pulse Oximetry 94 Oxygen Delivery Nasal Cannula Oxygen Flow Rate 2 Fraction of Inspired Oxygen 28 11/29/24 20:05 11/29/24 20:35 11/29/24 21:02 Temperature 38.3 C H 38.3 C H Pulse Rate 108 H 110 H Respiratory Rate 18 20 Blood Pressure 176/95 H Pulse Oximetry 100 Oxygen Delivery Oxygen Flow Rate Fraction of Inspired Oxygen 11/29/24 22:00 11/29/24 23:35 11/30/24 00:00 Temperature 37.2 C 36.2 C L Pulse Rate 95 98 Respiratory Rate 18 Blood Pressure 145/83 H Pulse Oximetry 97 Oxygen Delivery Oxygen Flow Rate Fraction of Inspired Oxygen 11/30/24 02:28 11/30/24 02:41 11/30/24 04:00 Temperature Pulse Rate 104 H 110 H 103 H Respiratory Rate 23 H 23 H Blood Pressure Pulse Oximetry Oxygen Delivery Oxygen Flow Rate Fraction of Inspired Oxygen 11/30/24 04:20 11/30/24 08:00 11/30/24 08:06 Temperature 37.6 C Pulse Rate 98 99 Respiratory Rate 20 20 Blood Pressure 144/90 H Pulse Oximetry 96 99 Oxygen Delivery Nasal Cannula Oxygen Flow Rate 2 Fraction of Inspired Oxygen 11/30/24 08:08 11/30/24 08:13 Temperature Pulse Rate 102 H Respiratory Rate 20 Blood Pressure Pulse Oximetry 99 Oxygen Delivery Nasal Cannula Oxygen Flow Rate 1 Fraction of Inspired Oxygen Intake/Output Intake/Output: Intake & Output 11/27/24 11/28/24 11/29/24 11/30/24 23:59 23:59 23:59 23:59 Intake Total 1840 400 Output Total 300 Balance 1540 400 Meds/Results Medications: Active Medications Generic Name Dose Route Start Last Admin Trade Name Freq PRN Reason Stop Dose Admin Acetaminophen 650 mg 11/29/24 04:32 11/29/24 21:02 Acetaminophen 325 Mg Tablet PO 650 mg Q6H PRN Administration Pain 1-3 or Fever Hydrocodone Bitart/Acetaminophen 1 tab 11/29/24 04:31 11/29/24 14:49 Hydrocodone/Acetaminophen (*Crx) 5-325 Mg Tablet PO 1 tab Q8H PRN Administration Pain 4-10 Acetylcysteine 200 mg 11/29/24 08:00 11/30/24 08:00 Acetylcysteine 20% Inhal Soln 800 Mg/4 Ml Vial INHALATION 200 mg Q6HRT ABIODUN Administration Albuterol 2 puff 11/29/24 04:31 11/29/24 09:01 Albuterol Sulfate (*Sp) Aerosol 1 Puff INHALATION 2 puff Q6HRT PRN Administration Shortness Of Breath Albuterol/Ipratropium 3 ml 11/29/24 14:00 11/30/24 08:00 Ipratropium 0.5 Mg/Albuterol Sulfate 2.5 Mg Ampul.Neb 3 Ml INHALATION 3 ml Q6HRT ABIODUN Administration Alprazolam 0.5 mg 11/29/24 04:31 Alprazolam (*Crx) 0.5 Mg Tablet PO BID PRN Anxiety Amlodipine Besylate 5 mg 11/29/24 21:50 11/30/24 09:54 Amlodipine Besylate 5 Mg Tablet PO 5 mg DAILY ABIODUN Administration Aspirin 81 mg 11/29/24 09:00 11/30/24 09:54 Aspirin 81 Mg Enteric Tablet PO 81 mg DAILY ABIODUN Administration Enoxaparin Sodium 40 mg 11/29/24 09:00 11/30/24 09:54 Enoxaparin 40 Mg/0.4 Ml Syringe SUB-Q 40 mg DAILY ABIODUN Administration Gabapentin 100 mg 11/29/24 09:00 11/30/24 09:53 Gabapentin 100 Mg Capsule PO 100 mg Q12HR ABIODUN Administration Guaifenesin 1,200 mg 11/29/24 21:00 11/30/24 09:54 Guaifenesin 12 Hr 600 Mg Tabcr PO 1,200 mg Q12HR ABIODUN Administration Metronidazole 500 mg in 100 mls @ 100 mls/hr 11/29/24 06:00 11/30/24 05:09 Flagyl 500 Mg/Iso Soln 100 Ml IVPB 100 mls/hr Q8HR ABIODUN Administration Azithromycin 250 mg in 250 mls @ 250 mls/hr 11/29/24 23:00 11/29/24 23:05 Zithromax IVPB 250 mls/hr Q24H ABIODUN Administration Cefepime HCl 2 gm/ Sodium 50 mls @ 100 mls/hr 11/29/24 14:00 11/30/24 05:08 Chloride IVPB 100 mls/hr Q8HR ABIODUN Administration Lisinopril 20 mg 11/29/24 21:50 11/30/24 09:53 Lisinopril 20 Mg Tablet PO 20 mg QAM ABIODUN Administration Loperamide HCl 2 mg 11/30/24 04:13 11/30/24 05:08 Loperamide Hcl 2 Mg Capsule PO 2 mg PRN PRN Administration Diarrhea Multivitamins/Minerals 1 tablet 11/29/24 21:00 11/29/24 21:04 Multivits W-Fe,Min Chewable Tablet PO 1 tablet HS ABIODUN Administration Pantoprazole Sodium 40 mg 11/29/24 21:00 11/29/24 21:04 Pantoprazole 40 Mg Tablet PO 40 mg HS ABIODUN Administration Sodium Chloride 6 ml 11/29/24 05:00 11/29/24 05:25 Sodium Chlor 3% 15 Ml Neb (Respiratory Therapy) INHALATION 12/01/24 05:01 6 ml DAILY@0500 ABIODUN Administration Radiology Results: ITS Impressions Chest X-Ray 11/29/24 06:53 Impression: 1: Masslike density right upper lobe, suspicious for malignancy. Correlation with CT chest recommended. 2: Right upper lobe airspace disease, compatible with pneumonia. Chest CTA 11/29/24 07:11 IMPRESSION: 1. Extensive masslike consolidation right upper lobe with surrounding airspace consolidation, consistent with pneumonia. Recommend follow-up CT in 2-3 months following appropriate therapy to exclude underlying mass. 2: Small pericardial effusion. Trace right pleural effusion. Abdomen Ultrasound 11/30/24 09:38 IMPRESSION: 1: Unremarkable limited abdominal ultrasound. Labs Labs: Laboratory Results - last 24 hr 11/29/24 11/29/24 11/29/24 04:51 10:11 11:12 WBC RBC Hgb Hct MCV MCH MCHC RDW Plt Count MPV Immature Gran % (Auto) Neut % (Auto) Lymph % (Auto) [place] % (Auto) Eos % (Auto) Baso % (Auto) Lymph # (Auto) [place] # (Auto) Eos # (Auto) Baso # (Auto) Abs Immat Gran (auto) Absolute Neuts (auto) Absolute Nucleated RBC Nucleated RBC % ESR Puncture Site ABG pH ABG pCO2 ABG pO2 ABG PO2/FiO2 Ratio ABG HCO3 ABG O2 Saturation ABG O2 Content ABG Base Excess A-a Gradient Oxyhemoglobin Total Hemoglobin O2 Delivery Device O2 Liters/Min FiO2 Sodium Potassium Chloride Carbon Dioxide Anion Gap BUN Creatinine Estim Creat Clear Calc Estimated GFR Glucose Calcium Magnesium Total Bilirubin AST ALT Alkaline Phosphatase C-Reactive Protein Total Protein Albumin Procalcitonin Nasal MRSA (PCR) Not detected C. difficile (PCR) Negative Hepatitis A IgM Ab Negative Hep Bs Antigen Negative Hep B Core IgM Ab Negative Hepatitis C Ab Screen Reactive 11/29/24 11/30/24 15:58 05:34 WBC 21.2 H RBC 3.07 L Hgb 9.4 L Hct 28.8 L MCV 93.8 MCH 30.6 MCHC 32.6 RDW 13.7 Plt Count 354 MPV 9.2 Immature Gran % (Auto) 1.3 H Neut % (Auto) 87.4 H Lymph % (Auto) 4.8 L [place] % (Auto) 6.1 Eos % (Auto) 0.2 Baso % (Auto) 0.2 Lymph # (Auto) 1.02 [place] # (Auto) 1.3 H Eos # (Auto) 0.1 Baso # (Auto) 0.1 Abs Immat Gran (auto) 0.28 H Absolute Neuts (auto) 18.5 H Absolute Nucleated RBC 0.000 Nucleated RBC % 0.0 ESR > 140 H Puncture Site Right brachial ABG pH 7.422 ABG pCO2 32.6 L ABG pO2 65.0 L ABG PO2/FiO2 Ratio 2.03 ABG HCO3 20.8 L ABG O2 Saturation 93.4 L ABG O2 Content 19.8 ABG Base Excess -2.7 A-a Gradient 125.0 Oxyhemoglobin 91.6 Total Hemoglobin 15.4 O2 Delivery Device Not Reportable O2 Liters/Min Not Reportable FiO2 21 Sodium 132 L Potassium 3.0 L Chloride 98 Carbon Dioxide 26 Anion Gap 8 BUN 10 D Creatinine 0.79 Estim Creat Clear Calc 64 Estimated GFR > 60 Glucose 107 Calcium 8.9 Magnesium 1.5 L Total Bilirubin 0.4 AST 56 H ALT 61 H Alkaline Phosphatase 164 H C-Reactive Protein 23.7 H Total Protein 6.6 Albumin 2.9 L Procalcitonin 1.5 Nasal MRSA (PCR) C. difficile (PCR) Hepatitis A IgM Ab Hep Bs Antigen Hep B Core IgM Ab Hepatitis C Ab Screen
[2024-11-30] MEDS: HYDROcodone/acetaminophen (*CRX) 5-325 MG TABLET 1 TAB PO ×2 (09:59→18:47)
--- NOTE | 2024-11-30 10:22 | P.PNIM_ITS ---
Progress Note: A&P Assessment and Plan (1) Sepsis: Qualifiers: Sepsis acute organ dysfunction status: unspecified Sepsis type: sepsis due to unspecified organism Qualified Code(s): A41.9 - Sepsis, unspecified o rganism Code(s): A41.9 - Sepsis, unspecified organism Status: Acute Assessment and Plan: Meeting at SIRS criteria likely secondary to underlying lobar pneumonia recent COVID infection testing positive a week prior but is not currently positive * Infectious disease consulted changed IV antibiotics to cefepime, Flagyl and azithromycin, ESR 125, WBC peaked at 31.1 downtrending. * sputum culture pending * Two sets of blood cultures pending * trend C-reactive proteins * procalcitonin level 2.1 (2) Lobar pneumonia: Code(s): J18.1 - Lobar pneumonia, unspecified organism Status: Acute Assessment and Plan: CTA showing AA in extensive masslike consolidation right upper lobe with surrounding airspace consolidation consistent with pneumonia. MRSA negative * See Above #1 * Bronchodilators. * Guaifenesin * incentive spirometry while awake. * sputum culture ordered * influenza/COVID/RSV negative * respiratory panel * Legionella, mycoplasma chlamydia pneumoniae pending * supplemental oxygen therapy to maintain oxygen 92% * Pulmonary consulted (3) Transaminitis: Code(s): R74.01 - Elevation of levels of liver transaminase levels Status: Acute Assessment and Plan: Patient with elevated liver enzymes POA denies any abdominal tenderness * U/S no significant findings * Hepatitis panel with reactive Hep C AB/RNA pending * Trend (4) Acute hyponatremia: Code(s): E87.1 - Hypo-osmolality and hyponatremia Status: Acute Assessment and Plan: Patient hyponatremic 129 POA Likely secondary to dehydration improving fluids * IV fluids * Trend daily labs * Encourage oral intake (5) COPD (chronic obstructive pulmonary disease): Code(s): J44.9 - Chronic obstructive pulmonary disease, unspecified Status: Acute Assessment and Plan: Patient was previous smoker with history of COPD * Inhalers p.r.n. continued * DuoNebs scheduled * Supplemental oxygen wean as tolerated to maintain 92% (6) Hypertension: Code(s): I10 - Essential (primary) hypertension Status: Chronic Assessment and Plan: Patient with history of hypertension primary care physician recently discontinued patient's amlodipine and lisinopril * Monitor BP per unit protocol (7) Acute hypokalemia: Code(s): E87.6 - Hypokalemia Status: Acute Assessment and Plan: Potassium 3.0 * replenished 40 meq * trend replenish as needed (8) Hypomagnesemia: Code(s): E83.42 - Hypomagnesemia Status: Acute Assessment and Plan: Mag 1.5 * replenished 2g IVP * trend and replenish as needed Plan Code status: Full code per patient DVT prophylaxis: Lovenox Stress ulcer prophylaxis: NA PT/OT notes: Ambulatory with walker Disposition: Patient admitted to the medical unit for further evaluation and treatment pneumonia consult to Pulmonary and Infectious Disease continue with cu rrent treatment plan patient was ambulatory with walker however may need evaluation by PT/OT prior to discharge for any further discharge planning needs. Time Spent With Patient Time with patient: 15 - 25 minutes Subjective Date/time seen: 11/30/24 10:22 Interval history: Patient is a 69-year-old female admitted for acute respiratory failure with hypoxia secondary to sepsis with pneumonia. Patient admitted to the medical unit with consult to pulmonology and Infectious Disease assisting with antibiotic therapy. 11/30/2024: Patient feeling better and off the oxygen at this time. Denied CP, Dizziness, N/V. Still wheezing with diminished lung gauthier and dyspnea with activity. Review of Systems Review of Systems: All systems reviewed & are unremarkable except as noted in HPI and below Exam Const: General: comfortable and no acute distress Other: Pleasant female Eyes: General: appearance normal, both eyes and all related structures Sclera: sclerae normal Pupils: Equal, round and reactive pupils present EOM: EOMs intact bilaterally Neck: Neck: supple and no JVD Resp: Auscultation: wheezes scattered wheezes and diminished lung sounds on the right in the upper lung gauthier Cardio: Rate: regular rate Rhythm: regular rhythm GI: Auscultation: normal bowel sounds Skin: General skin exam: normal color Wounds: no wounds Neuro: General: gait normal Cranial nerves: Yes Equal, round and reactive pupils present Speech: normal speech Motor exam (neuro): 5/5 motor strength present throughout Sensory Exam: normal sensation Extrem: General: normal to inspection Psych: Mental Status: mental status grossly normal Affect: normal affect Objective Data Vital Signs Vital Signs: Vital Signs - 24 hr 11/29/24 12:00 11/29/24 12:00 11/29/24 12:45 Temperature 98.6 F Pulse Rate 89 105 H Respiratory Rate 24 H Blood Pressure 128/78 Pulse Oximetry 98 94 Oxygen Delivery Room Air Oxygen Flow Rate Fraction of Inspired Oxygen 11/29/24 14:00 11/29/24 14:19 11/29/24 14:29 Temperature 98.6 F Pulse Rate 110 H 96 95 Respiratory Rate 24 H 18 18 Blood Pressure 153/87 H Pulse Oximetry 94 Oxygen Delivery Oxygen Flow Rate Fraction of Inspired Oxygen 11/29/24 16:00 11/29/24 16:00 11/29/24 19:45 Temperature 97.8 F Pulse Rate 93 96 Respiratory Rate 20 Blood Pressure 133/79 Pulse Oximetry 96 98 Oxygen Delivery Nasal Cannula Oxygen Flow Rate 2 Fraction of Inspired Oxygen 11/29/24 19:49 11/29/24 20:00 11/29/24 20:00 Temperature Pulse Rate 103 H 110 H 110 H Respiratory Rate 18 20 Blood Pressure Pulse Oximetry 94 Oxygen Delivery Nasal Cannula Oxygen Flow Rate 2 Fraction of Inspired Oxygen 11/29/24 20:05 11/29/24 20:35 11/29/24 21:02 Temperature 100.9 F H 100.9 F H Pulse Rate 108 H 110 H Respiratory Rate 18 20 Blood Pressure 176/95 H Pulse Oximetry 100 Oxygen Delivery Oxygen Flow Rate Fraction of Inspired Oxygen 11/29/24 22:00 11/29/24 23:35 11/30/24 00:00 Temperature 98.9 F 97.1 F L Pulse Rate 95 98 Respiratory Rate 18 Blood Pressure 145/83 H Pulse Oximetry 97 Oxygen Delivery Oxygen Flow Rate Fraction of Inspired Oxygen 11/30/24 02:28 11/30/24 02:41 11/30/24 04:00 Temperature Pulse Rate 104 H 110 H 103 H Respiratory Rate 23 H 23 H Blood Pressure Pulse Oximetry Oxygen Delivery Oxygen Flow Rate Fraction of Inspired Oxygen 11/30/24 04:20 11/30/24 08:00 11/30/24 08:06 Temperature 99.6 F Pulse Rate 98 99 Respiratory Rate 20 20 Blood Pressure 144/90 H Pulse Oximetry 96 99 Oxygen Delivery Nasal Cannula Oxygen Flow Rate 2 Fraction of Inspired Oxygen 11/30/24 08:08 11/30/24 08:13 Temperature Pulse Rate 102 H Respiratory Rate 20 Blood Pressure Pulse Oximetry 99 Oxygen Delivery Nasal Cannula Oxygen Flow Rate 1 Fraction of Inspired Oxygen Intake/Output Intake/Output: Intake & Output 11/27/24 11/28/24 11/29/24 11/30/24 23:59 23:59 23:59 23:59 Intake Total 1840 400 Output Total 300 Balance 1540 400 Meds/Results Medications: Active Medications Generic Name Dose Route Start Last Admin Trade Name Freq PRN Reason Stop Dose Admin Acetaminophen 650 mg 11/29/24 04:32 11/29/24 21:02 Acetaminophen 325 Mg Tablet PO 650 mg Q6H PRN Administration Pain 1-3 or Fever Hydrocodone Bitart/Acetaminophen 1 tab 11/29/24 04:31 11/30/24 09:59 Hydrocodone/Acetaminophen (*Crx) 5-325 Mg Tablet PO 1 tab Q8H PRN Administration Pain 4-10 Acetylcysteine 200 mg 11/29/24 08:00 11/30/24 08:00 Acetylcysteine 20% Inhal Soln 800 Mg/4 Ml Vial INHALATION 200 mg Q6HRT ABIODUN Administration Albuterol 2 puff 11/29/24 04:31 11/29/24 09:01 Albuterol Sulfate (*Sp) Aerosol 1 Puff INHALATION 2 puff Q6HRT PRN Administration Shortness Of Breath Albuterol/Ipratropium 3 ml 11/29/24 14:00 11/30/24 08:00 Ipratropium 0.5 Mg/Albuterol Sulfate 2.5 Mg Ampul.Neb 3 Ml INHALATION 3 ml Q6HRT ABIODUN Administration Alprazolam 0.5 mg 11/29/24 04:31 Alprazolam (*Crx) 0.5 Mg Tablet PO BID PRN Anxiety Amlodipine Besylate 5 mg 11/29/24 21:50 11/30/24 09:54 Amlodipine Besylate 5 Mg Tablet PO 5 mg DAILY ABIODUN Administration Aspirin 81 mg 11/29/24 09:00 11/30/24 09:54 Aspirin 81 Mg Enteric Tablet PO 81 mg DAILY ABIODUN Administration Enoxaparin Sodium 40 mg 11/29/24 09:00 11/30/24 09:54 Enoxaparin 40 Mg/0.4 Ml Syringe SUB-Q 40 mg DAILY ABIODUN Administration Gabapentin 100 mg 11/29/24 09:00 11/30/24 09:53 Gabapentin 100 Mg Capsule PO 100 mg Q12HR ABIODUN Administration Guaifenesin 1,200 mg 11/29/24 21:00 11/30/24 09:54 Guaifenesin 12 Hr 600 Mg Tabcr PO 1,200 mg Q12HR ABIODUN Administration Metronidazole 500 mg in 100 mls @ 100 mls/hr 11/29/24 06:00 11/30/24 05:09 Flagyl 500 Mg/Iso Soln 100 Ml IVPB 100 mls/hr Q8HR ABIODUN Administration Azithromycin 250 mg in 250 mls @ 250 mls/hr 11/29/24 23:00 11/29/24 23:05 Zithromax IVPB 250 mls/hr Q24H ABIODUN Administration Cefepime HCl 2 gm/ Sodium 50 mls @ 100 mls/hr 11/29/24 14:00 11/30/24 05:08 Chloride IVPB 100 mls/hr Q8HR ABIODUN Administration Magnesium Sulfate 2 gm in 50 mls @ 25 mls/hr 11/30/24 10:20 Magnesium Sulf 2 Gm/Water 50ml IVPB 11/30/24 12:19 ONCE ONE Lisinopril 20 mg 11/29/24 21:50 11/30/24 09:53 Lisinopril 20 Mg Tablet PO 20 mg QAM ABIODUN Administration Loperamide HCl 2 mg 11/30/24 04:13 11/30/24 05:08 Loperamide Hcl 2 Mg Capsule PO 2 mg PRN PRN Administration Diarrhea Multivitamins/Minerals 1 tablet 11/29/24 21:00 11/29/24 21:04 Multivits W-Fe,Min Chewable Tablet PO 1 tablet HS ABIODUN Administration Pantoprazole Sodium 40 mg 11/29/24 21:00 11/29/24 21:04 Pantoprazole 40 Mg Tablet PO 40 mg HS ABIODUN Administration Potassium Chloride 40 meq 11/30/24 10:20 Potassium Chloride 20 Meq Er Tablet PO 11/30/24 10:21 ONCE ONE Sodium Chloride 6 ml 11/29/24 05:00 11/29/24 05:25 Sodium Chlor 3% 15 Ml Neb (Respiratory Therapy) INHALATION 12/01/24 05:01 6 ml DAILY@0500 ABIODUN Administration Radiology Results: ITS Impressions Chest X-Ray 11/29/24 06:53 Impression: 1: Masslike density right upper lobe, suspicious for malignancy. Correlation with CT chest recommended. 2: Right upper lobe airspace disease, compatible with pneumonia. Chest CTA 11/29/24 07:11 IMPRESSION: 1. Extensive masslike consolidation right upper lobe with surrounding airspace consolidation, consistent with pneumonia. Recommend follow-up CT in 2-3 months following appropriate therapy to exclude underlying mass. 2: Small pericardial effusion. Trace right pleural effusion. Abdomen Ultrasound 11/30/24 09:38 IMPRESSION: 1: Unremarkable limited abdominal ultrasound. Labs Labs: Laboratory Results - last 24 hr 11/29/24 11/29/24 11/29/24 04:51 10:11 11:12 WBC RBC Hgb Hct MCV MCH MCHC RDW Plt Count MPV Immature Gran % (Auto) Neut % (Auto) Lymph % (Auto) [place] % (Auto) Eos % (Auto) Baso % (Auto) Lymph # (Auto) [place] # (Auto) Eos # (Auto) Baso # (Auto) Abs Immat Gran (auto) Absolute Neuts (auto) Absolute Nucleated RBC Nucleated RBC % ESR Puncture Site ABG pH ABG pCO2 ABG pO2 ABG PO2/FiO2 Ratio ABG HCO3 ABG O2 Saturation ABG O2 Content ABG Base Excess A-a Gradient Oxyhemoglobin Total Hemoglobin O2 Delivery Device O2 Liters/Min FiO2 Sodium Potassium Chloride Carbon Dioxide Anion Gap BUN Creatinine Estim Creat Clear Calc Estimated GFR Glucose Calcium Magnesium Total Bilirubin AST ALT Alkaline Phosphatase C-Reactive Protein Total Protein Albumin Procalcitonin Nasal MRSA (PCR) Not detected C. difficile (PCR) Negative Hepatitis A IgM Ab Negative Hep Bs Antigen Negative Hep B Core IgM Ab Negative Hepatitis C Ab Screen Reactive 11/29/24 11/30/24 15:58 05:34 WBC 21.2 H RBC 3.07 L Hgb 9.4 L Hct 28.8 L MCV 93.8 MCH 30.6 MCHC 32.6 RDW 13.7 Plt Count 354 MPV 9.2 Immature Gran % (Auto) 1.3 H Neut % (Auto) 87.4 H Lymph % (Auto) 4.8 L [place] % (Auto) 6.1 Eos % (Auto) 0.2 Baso % (Auto) 0.2 Lymph # (Auto) 1.02 [place] # (Auto) 1.3 H Eos # (Auto) 0.1 Baso # (Auto) 0.1 Abs Immat Gran (auto) 0.28 H Absolute Neuts (auto) 18.5 H Absolute Nucleated RBC 0.000 Nucleated RBC % 0.0 ESR > 140 H Puncture Site Right brachial ABG pH 7.422 ABG pCO2 32.6 L ABG pO2 65.0 L ABG PO2/FiO2 Ratio 2.03 ABG HCO3 20.8 L ABG O2 Saturation 93.4 L ABG O2 Content 19.8 ABG Base Excess -2.7 A-a Gradient 125.0 Oxyhemoglobin 91.6 Total Hemoglobin 15.4 O2 Delivery Device Not Reportable O2 Liters/Min Not Reportable FiO2 21 Sodium 132 L Potassium 3.0 L Chloride 98 Carbon Dioxide 26 Anion Gap 8 BUN 10 D Creatinine 0.79 Estim Creat Clear Calc 64 Estimated GFR > 60 Glucose 107 Calcium 8.9 Magnesium 1.5 L Total Bilirubin 0.4 AST 56 H ALT 61 H Alkaline Phosphatase 164 H C-Reactive Protein 23.7 H Total Protein 6.6 Albumin 2.9 L Procalcitonin 1.5 Nasal MRSA (PCR) C. difficile (PCR) Hepatitis A IgM Ab Hep Bs Antigen Hep B Core IgM Ab Hepatitis C Ab Screen Quality VTE Prophylaxis VTE prophylaxis: pharmacologic ordered -Patient's previous records reviewed on admission -ER notes reviewed in detail on admission -discussed all findings and current treatment plan with patient/Family/POA -Consultations reviewed for recommendations -Patient's disposition for safe discharge discussed with rifle case repairer Dictation performed by [employer] direct speech recognition software, therefore clinical laboratory director variants and typographical errors may occur. Hospitalist MIPS Advance Care Plan I have confirmed that the patient's Advanced Care Plan is present, code status is documented, or surrogate decision maker is listed in patient medical record.: Yes Medication Reconciliation I have utilized all available resources to obtain, update and review the patients current medications (includes all prescriptions, OTC, herbals, canna bis, and nutritional supplements).: Yes The patient is not eligible for med reconciliation; the patient is in a emergent medical situation where delaying treatment would jeopardize the patients health.: No
--- NOTE | 2024-11-30 11:08 | P.PNINF_ITS ---
Progress Note: A&P Assessment and Plan (1) Lobar pneumonia: Code(s): J18.1 - Lobar pneumonia, unspecified organism Status: Acute (2) Sepsis: Code(s): A41.9 - Sepsis, unspecified organism Status: Acute (3) COPD (chronic obstructive pulmonary disease): Code(s): J44.9 - Chronic obstructive pulmonary disease, unspecified Status: Acute (4) Transaminitis: Code(s): R74.01 - Elevation of levels of liver transaminase levels Status: Acute Plan # Right upper lobe lobar consolidation with acute onset over the last 2 weeks. Possibly associated with recent COVID infection although PCR analysis at this time is negative. Reports productive cough that is sometimes blood tinged. -- community-acquired pneumonia, possible pneumococcus. -- dense consolidation also raises the possibility of malignancy. 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 Right middle lobe process appears to have resolved on current CT scan. -- with relatively acute onset of symptoms, lack of consumptive symptoms, and no known TB exposure this diagnosis seems less likely. # Acute sepsis secondary to the above. # Cough with Mild transaminitis along with mild hyponatremia. -- may be associated with Legionella pneumonia although chest x-ray more consistent with classic bacterial lobar pneumonia. Plan: -- await sputum for Gram stain and culture. Await respiratory pathogen panel. -- await urine Legionella and pneumococcal antigens. -- follow blood cultures. -- continue cefepime, metronidazole, and azithromycin for now. Should be completing 1500 mg of azithromycin today. -- with negative nasopharyngeal PCR for SARS-CoV-2 she should not require respiratory isolation at this time. -- further recommendations to follow. Subjective Date/time seen: 11/30/24 11:08 Interval history: 11/30/2024: T-max a 100.9? overnight. White blood cell count decreased to 21. Feels better today. Continued cough but improved. Decreased pleuritic right-s ided chest pain. Sputum culture: Pending Urine Legionella antigen: Pending Urine pneumococcal antigen: Pending Respiratory pathogen panel by PCR: Pending Blood cultures 11/28: Pending Review of Systems Review of Systems: All systems reviewed & are unremarkable except as noted in HPI and below Exam Narrative: Awake, alert and interactive. No Respiratory distress today. Normocephalic. No conjunctivitis. Appears to be breathing comfortably. Abdomen not significantly distended. No evidence of rash. Objective Data Vital Signs Vital Signs: Vital Signs - 24 hr 11/29/24 12:00 11/29/24 12:00 11/29/24 12:45 Temperature 98.6 F Pulse Rate 89 105 H Respiratory Rate 24 H Blood Pressure 128/78 Pulse Oximetry 98 94 Oxygen Delivery Room Air Oxygen Flow Rate Fraction of Inspired Oxygen 11/29/24 14:00 11/29/24 14:19 11/29/24 14:29 Temperature 98.6 F Pulse Rate 110 H 96 95 Respiratory Rate 24 H 18 18 Blood Pressure 153/87 H Pulse Oximetry 94 Oxygen Delivery Oxygen Flow Rate Fraction of Inspired Oxygen 11/29/24 16:00 11/29/24 16:00 11/29/24 19:45 Temperature 97.8 F Pulse Rate 93 96 Respiratory Rate 20 Blood Pressure 133/79 Pulse Oximetry 96 98 Oxygen Delivery Nasal Cannula Oxygen Flow Rate 2 Fraction of Inspired Oxygen 11/29/24 19:49 11/29/24 20:00 11/29/24 20:00 Temperature Pulse Rate 103 H 110 H 110 H Respiratory Rate 18 20 Blood Pressure Pulse Oximetry 94 Oxygen Delivery Nasal Cannula Oxygen Flow Rate 2 Fraction of Inspired Oxygen 11/29/24 20:05 11/29/24 20:35 11/29/24 21:02 Temperature 100.9 F H 100.9 F H Pulse Rate 108 H 110 H Respiratory Rate 18 20 Blood Pressure 176/95 H Pulse Oximetry 100 Oxygen Delivery Oxygen Flow Rate Fraction of Inspired Oxygen 11/29/24 22:00 11/29/24 23:35 11/30/24 00:00 Temperature 98.9 F 97.1 F L Pulse Rate 95 98 Respiratory Rate 18 Blood Pressure 145/83 H Pulse Oximetry 97 Oxygen Delivery Oxygen Flow Rate Fraction of Inspired Oxygen 11/30/24 02:28 11/30/24 02:41 11/30/24 04:00 Temperature Pulse Rate 104 H 110 H 103 H Respiratory Rate 23 H 23 H Blood Pressure Pulse Oximetry Oxygen Delivery Oxygen Flow Rate Fraction of Inspired Oxygen 11/30/24 04:20 11/30/24 08:00 11/30/24 08:06 Temperature 99.6 F Pulse Rate 98 99 Respiratory Rate 20 20 Blood Pressure 144/90 H Pulse Oximetry 96 99 Oxygen Delivery Nasal Cannula Oxygen Flow Rate 2 Fraction of Inspired Oxygen 11/30/24 08:08 11/30/24 08:13 Temperature Pulse Rate 102 H Respiratory Rate 20 Blood Pressure Pulse Oximetry 99 Oxygen Delivery Nasal Cannula Oxygen Flow Rate 1 Fraction of Inspired Oxygen Intake/Output Intake/Output: Intake & Output 11/27/24 11/28/24 11/29/24 11/30/24 23:59 23:59 23:59 23:59 Intake Total 1840 400 Output Total 300 Balance 1540 400 Meds/Results Medications: Active Medications Generic Name Dose Route Start Last Admin Trade Name Freq PRN Reason Stop Dose Admin Acetaminophen 650 mg 11/29/24 04:32 11/29/24 21:02 Acetaminophen 325 Mg Tablet PO 650 mg Q6H PRN Administration Pain 1-3 or Fever Hydrocodone Bitart/Acetaminophen 1 tab 11/29/24 04:31 11/30/24 09:59 Hydrocodone/Acetaminophen (*Crx) 5-325 Mg Tablet PO 1 tab Q8H PRN Administration Pain 4-10 Acetylcysteine 200 mg 11/29/24 08:00 11/30/24 08:00 Acetylcysteine 20% Inhal Soln 800 Mg/4 Ml Vial INHALATION 200 mg Q6HRT ABIODUN Administration Albuterol 2 puff 11/29/24 04:31 11/29/24 09:01 Albuterol Sulfate (*Sp) Aerosol 1 Puff INHALATION 2 puff Q6HRT PRN Administration Shortness Of Breath Albuterol/Ipratropium 3 ml 11/29/24 14:00 11/30/24 08:00 Ipratropium 0.5 Mg/Albuterol Sulfate 2.5 Mg Ampul.Neb 3 Ml INHALATION 3 ml Q6HRT ABIODUN Administration Alprazolam 0.5 mg 11/29/24 04:31 Alprazolam (*Crx) 0.5 Mg Tablet PO BID PRN Anxiety Amlodipine Besylate 5 mg 11/29/24 21:50 11/30/24 09:54 Amlodipine Besylate 5 Mg Tablet PO 5 mg DAILY ABIODUN Administration Aspirin 81 mg 11/29/24 09:00 11/30/24 09:54 Aspirin 81 Mg Enteric Tablet PO 81 mg DAILY ABIODUN Administration Enoxaparin Sodium 40 mg 11/29/24 09:00 11/30/24 09:54 Enoxaparin 40 Mg/0.4 Ml Syringe SUB-Q 40 mg DAILY ABIODUN Administration Gabapentin 100 mg 11/29/24 09:00 11/30/24 09:53 Gabapentin 100 Mg Capsule PO 100 mg Q12HR ABIODUN Administration Guaifenesin 1,200 mg 11/29/24 21:00 11/30/24 09:54 Guaifenesin 12 Hr 600 Mg Tabcr PO 1,200 mg Q12HR ABIODUN Administration Metronidazole 500 mg in 100 mls @ 100 mls/hr 11/29/24 06:00 11/30/24 05:09 Flagyl 500 Mg/Iso Soln 100 Ml IVPB 100 mls/hr Q8HR ABIODUN Administration Azithromycin 250 mg in 250 mls @ 250 mls/hr 11/29/24 23:00 11/29/24 23:05 Zithromax IVPB 250 mls/hr Q24H ABIODUN Administration Cefepime HCl 2 gm/ Sodium 50 mls @ 100 mls/hr 11/29/24 14:00 11/30/24 05:08 Chloride IVPB 100 mls/hr Q8HR ABIODUN Administration Magnesium Sulfate 2 gm in 50 mls @ 25 mls/hr 11/30/24 10:20 Magnesium Sulf 2 Gm/Water 50ml IVPB 11/30/24 12:19 ONCE ONE Lisinopril 20 mg 11/29/24 21:50 11/30/24 09:53 Lisinopril 20 Mg Tablet PO 20 mg QAM ABIODUN Administration Loperamide HCl 2 mg 11/30/24 04:13 11/30/24 05:08 Loperamide Hcl 2 Mg Capsule PO 2 mg PRN PRN Administration Diarrhea Multivitamins/Minerals 1 tablet 11/29/24 21:00 11/29/24 21:04 Multivits W-Fe,Min Chewable Tablet PO 1 tablet HS ABIODUN Administration Pantoprazole Sodium 40 mg 11/29/24 21:00 11/29/24 21:04 Pantoprazole 40 Mg Tablet PO 40 mg HS ABIODUN Administration Sodium Chloride 6 ml 11/29/24 05:00 11/29/24 05:25 Sodium Chlor 3% 15 Ml Neb (Respiratory Therapy) INHALATION 12/01/24 05:01 6 ml DAILY@0500 ABIODUN Administration Radiology Results: ITS Impressions Chest X-Ray 11/29/24 06:53 Impression: 1: Masslike density right upper lobe, suspicious for malignancy. Correlation with CT chest recommended. 2: Right upper lobe airspace disease, compatible with pneumonia. Chest CTA 11/29/24 07:11 IMPRESSION: 1. Extensive masslike consolidation right upper lobe with surrounding airspace consolidation, consistent with pneumonia. Recommend follow-up CT in 2-3 months following appropriate therapy to exclude underlying mass. 2: Small pericardial effusion. Trace right pleural effusion. Abdomen Ultrasound 11/30/24 09:38 IMPRESSION: 1: Unremarkable limited abdominal ultrasound. Labs Labs: Laboratory Results - last 24 hr 11/29/24 11/29/24 11/29/24 04:51 10:11 11:12 WBC RBC Hgb Hct MCV MCH MCHC RDW Plt Count MPV Immature Gran % (Auto) Neut % (Auto) Lymph % (Auto) [place] % (Auto) Eos % (Auto) Baso % (Auto) Lymph # (Auto) [place] # (Auto) Eos # (Auto) Baso # (Auto) Abs Immat Gran (auto) Absolute Neuts (auto) Absolute Nucleated RBC Nucleated RBC % ESR Puncture Site ABG pH ABG pCO2 ABG pO2 ABG PO2/FiO2 Ratio ABG HCO3 ABG O2 Saturation ABG O2 Content ABG Base Excess A-a Gradient Oxyhemoglobin Total Hemoglobin O2 Delivery Device O2 Liters/Min FiO2 Sodium Potassium Chloride Carbon Dioxide Anion Gap BUN Creatinine Estim Creat Clear Calc Estimated GFR Glucose Calcium Magnesium Total Bilirubin AST ALT Alkaline Phosphatase C-Reactive Protein Total Protein Albumin Procalcitonin Nasal MRSA (PCR) Not detected C. difficile (PCR) Negative Hepatitis A IgM Ab Negative Hep Bs Antigen Negative Hep B Core IgM Ab Negative Hepatitis C Ab Screen Reactive 11/29/24 11/30/24 15:58 05:34 WBC 21.2 H RBC 3.07 L Hgb 9.4 L Hct 28.8 L MCV 93.8 MCH 30.6 MCHC 32.6 RDW 13.7 Plt Count 354 MPV 9.2 Immature Gran % (Auto) 1.3 H Neut % (Auto) 87.4 H Lymph % (Auto) 4.8 L [place] % (Auto) 6.1 Eos % (Auto) 0.2 Baso % (Auto) 0.2 Lymph # (Auto) 1.02 [place] # (Auto) 1.3 H Eos # (Auto) 0.1 Baso # (Auto) 0.1 Abs Immat Gran (auto) 0.28 H Absolute Neuts (auto) 18.5 H Absolute Nucleated RBC 0.000 Nucleated RBC % 0.0 ESR > 140 H Puncture Site Right brachial ABG pH 7.422 ABG pCO2 32.6 L ABG pO2 65.0 L ABG PO2/FiO2 Ratio 2.03 ABG HCO3 20.8 L ABG O2 Saturation 93.4 L ABG O2 Content 19.8 ABG Base Excess -2.7 A-a Gradient 125.0 Oxyhemoglobin 91.6 Total Hemoglobin 15.4 O2 Delivery Device Not Reportable O2 Liters/Min Not Reportable FiO2 21 Sodium 132 L Potassium 3.0 L Chloride 98 Carbon Dioxide 26 Anion Gap 8 BUN 10 D Creatinine 0.79 Estim Creat Clear Calc 64 Estimated GFR > 60 Glucose 107 Calcium 8.9 Magnesium 1.5 L Total Bilirubin 0.4 AST 56 H ALT 61 H Alkaline Phosphatase 164 H C-Reactive Protein 23.7 H Total Protein 6.6 Albumin 2.9 L Procalcitonin 1.5 Nasal MRSA (PCR) C. difficile (PCR) Hepatitis A IgM Ab Hep Bs Antigen Hep B Core IgM Ab Hepatitis C Ab Screen
[2024-11-30] MEDS: POTASSIUM CHLORIDE 20 MEQ ER TABLET 40 MEQ PO (11:49)
[2024-11-30] MEDS: MORPHINE SULFATE (*CRX) 2 MG/ML INJ IV PUSH ×2 (11:49→16:43)
[2024-11-30] MEDS: MAGNESIUM SULF 2 GM/WATER 50ML 2 GM/50 ML BAG IVPB (11:49)
[2024-11-30 12:43] LABS: MRSA (PCR) NOT DETECTED (NOT DETECTE)
[2024-11-30] MEDS: PANTOPRAZOLE 40 MG TABLET PO (21:35)
[2024-11-30] MEDS: MULTIVITS W-FE,MIN CHEWABLE TABLET 1 TABLET PO (21:35)
[2024-11-30] MEDS: AZITHROMYCIN 250 MG/NS 250 ML 250 MG/250 ML BAG 125 MG IVPB (23:23)
[2024-12-01] VITALS (16 sets, daily range): BP systolic 119–142; BP diastolic 76–85; PULSE 70–97; RESP 16–20; TEMP 36.2–37.2; O2SAT 92–99
[2024-12-01] MEDS: MORPHINE SULFATE (*CRX) 2 MG/ML INJ IV PUSH ×3 (01:22→22:24)
[2024-12-01] MEDS: ACETYLCYSTEINE 20% INHAL SOLN 800 MG/4 ML VIAL 200 MG INHALATION (02:44)
[2024-12-01] MEDS: IPRATROPIUM 0.5 MG/ALBUTEROL SULFATE 2.5 MG AMPUL.NEB 3 ML INHALATION ×3 (02:44→19:43)
--- NOTE | 2024-12-01 02:49 | PCRCNOTE ---
Updraft tx given late due to patient not wanting to be awakened.
--- NOTE | 2024-12-01 05:02 | PCRCNOTE ---
Sputum induction not attempted this a.m., as patient was able to produce a specimen early this morning.
[2024-12-01] MEDS: CEFEPIME 2 GM in SODIUM CHLORIDE 0.9% IV 50 ML 100 ML IVPB ×3 (05:54→21:30)
[2024-12-01 06:01] LABS: Hematocrit 29.2 % (37.0-47.0); Hemoglobin 9.1 g/dL (12.0-15.0); Immature Granulocyte Percent A 1.0 % (0-0.5); Lymphocytes Absolute Auto 1.42 K/mm3 (0.9-3.2); Mean Corpuscular HGB Conc 31.2 g/dl (32-36); Mean Corpuscular Hemoglobin 29.8 pg (26-34); Mean Corpuscular Volume 95.7 fl (80-100); Nucleated Red Blood Cells Absolute Auto 0.000 K/mm3 (0.0-0.012); Nucleated Red Blood Cells Perc 0.0 % (0.0-0.2); Platelet Count Result 427 k/mm3 (150-375); Red Blood Count 3.05 M/mm3 (4.2-5.4); White Blood Count 20.6 K/mm3 (4.5-10.0)
[2024-12-01 06:44] LABS: Procalcitonin 1.1 ng/mL
[2024-12-01] MEDS: metroNIDAZOLE 500 MG/ISO 100ML 500 MG/100 ML BAG 100 MG IVPB (06:48)
[2024-12-01 06:58] LABS: Alanine Aminotransferase 54 U/L (6-35); Albumin Level 2.8 g/dL (3.5-5.1); Alkaline Phosphatase 137 U/L (38-126); Anion Gap 7 mmol/L (4-12); Aspartate Amino Transferase 50 U/L (14-36); Bilirubin,Total 0.3 mg/dL (0.2-1.3); Blood Urea Nitrogen 13 mg/dL (7-17); CRP 15.9 mg/dL (<1.0); Calcium 8.5 mg/dL (8.4-10.2); Carbon Dioxide 25 mmol/L (22-30); Chloride 99 mmol/L (98-107); Estimated CRCL calculation 61 ml/min; Estimated Glomerular Filt Rate > 60; Glucose 103 mg/dL (65-110); Magnesium 1.8 mg/dL (1.6-2.3); Potassium 2.8 mmol/L (3.4-5.0); Sodium 131 mmol/L (137-145); Total Protein 6.2 g/dL (6.3-8.2)
[2024-12-01 08:16] LABS: NT Pro B Type Natriuretic Pept 1320 pg/mL (19.9-100)
--- NOTE | 2024-12-01 08:49 | PM.PNPUL ---
Progress Note: A&P Assessment and Plan (1) Lobar pneumonia: Code(s): J18.1 - Lobar pneumonia, unspecified organism Status: Acute Assessment and Plan: Patient with 1 week history of infectious respiratory complaints with fever, increased cough, in for a web press roll tender phlegm production with some hemoptysis, leukocytosis 28.9, elevated CRP 26.2, elevated procalcitonin 2.[address] scan of the chest that shows apical predominant panlobular emphysema and a new right upper lobe dense consolidative infiltrate with no change of a previous cavity in her right middle lobe and resolved bilateral lower lobe and lingular infiltrates compared to CT scan on 07/06/2024. COVID, influenza, RSV RT PCR assay negative, MRSA nasal swab negative. 11/29/24: Plan: Continue cefepime, azithromycin and Flagyl. Blood and sputum cultures pending. Respiratory pathogen panel, urine for Streptococcus, urine for Legionella, chlamydia PCR, mycoplasma PCR all pending. Goal saturation 90-94%. Currently she is on room air. Infectious disease consultation following. 11/30/24: The patient tells me she is feeling better. States she has 20% back to her baseline. Her cough is unchanged. She is producing calderon phlegm with no blood. Her dyspnea on exertion is worse than when she came to the hospital. Patient had a fever last night at 38.3. Currently she is on room air with saturations 94%. White blood cell count improved to 21.2, creatinine 0.79. CRP is minimally improved from 26.1 on 11/29/2024 to 23.7 today. Procalcitonin is improved from 2.1 yesterday to 1.5 today. yesterday she was 1.5 L positive, cumulative she is 1.9 L positive since admission. Plan: patient had a fever last night. Clinically the patient has improved, oxygenation has improved, leukocytosis has improved, minimal improvement in CRP. Continue cefepime ( started 11/28), azithromycin ( started 11/28) and Flagyl ( started 11/29). I will check a chest x-ray tomorrow morning. 12/01/24: The patient tells me she continues to improve. She states she is breathing 50% back to her baseline. Her cough is normal, she still has right-sided chest pain. She has developed diarrhea. Her last fever was on 11/29/2024 at 9:02 p.m. and she has been afebrile since then. When I enter the room she was on 2 L nasal cannula saturations 96%, I decreased her to 1 L and her saturation was 95%. Her white blood cell count is 20.6, creatinine was 0.83. Her CRP has decreased from 20/3 0.7 yesterday to 15.9 today. Her procalcitonin is decreased from 1.5 yesterday to 1.1 today. Her BNP remains essentially unchanged from 1280 on 11/29/2024 to 1320 today. Her weight today is 79.6. Her chest x-ray today shows continued right upper lobe consolidative mass with no change from 11/28/2024. Plan: patient continues to improve. Patient afebrile, and white blood cell count, CRP, procalcitonin All improving and chest x-ray stable on cefepime ( started 11/28), azithromycin ( started 11/28) and Flagyl ( started 11/29). infectious Disease following. Pulmonary inpatient consultative services will resume on 12/04/2024, call with questions. Discussed with Terese Mac (2) COPD (chronic obstructive pulmonary disease): Code(s): J44.9 - Chronic obstructive pulmonary disease, unspecified Status: Acute Assessment and Plan: GOLD grade 2 group B COPD Patient with 40 pack year tobacco use, quit 2016, currently smoking 2-3 marijuana cigarettes a day, PFTs on 07/07/2024 with moderately severe obstructive abnormality, FEV1 1.44 L, 57% predicted, ratio 53% predicted. No bronchodilator response, normal lung volumes moderately decreased DLCO that remains mildly decreased when adjusted for alveolar volume. CT scan of the chest on 04/17/2024 as well as 11/29/2024 demonstrates moderate to severe apical predominant centrilobular emphysema. She is on no home oxygen. 11/28/2021 white blood cell count 28.9, eosinophils 0.2%=58/uL. At baseline she can walk a quarter of a mi and then stops for respiratory insufficiency, she has shortness of breath with her activities of daily living. She is maintained on trelegy 100- 62.5-25 at 1 puff q.day 11/29/24: Currently the patient is not wheezing and I do not believe she is having a COPD exacerbation. Plan: patient with the pneumonia and I will discontinue inhaled corticosteroids. Place the patient on DuoNebs q.6 hours and Mucomyst nebulizers q.6 hours. Will add guaifenesin to 1200 mg p.o. b.i.d. I will check an ABG to exclude hypercarbic respiratory failure. Room air ABG later in the day was 7.42/33/65 11/30/24: I do not believe the patient is having a COPD exacerbation. ABG demonstrates no hypercarbic respiratory failure. Currently she is on room air. Plan: Continue DuoNebs and Mucomyst nebulizers q.6 hours. continue guaifenesin 1200 mg p.o. b.i.d.. I will add a Cornet flutter valve. Goal saturation 90-94%. 12/01/2024: Patient states her breathing continues to improve. There were a few scant expiratory wheezes on exam today. Plan: I will increase her DuoNebs to q.4 hours. I will discontinue the Mucomyst nebulizers as these can cause bronchospasm. She is producing phlegm with guaifenesin 1200 p.o. b.i.d. and the Cornet flutter valve. Would like to avoid inhaled and systemic steroids given her pneumonia, however if her wheezing worsens she may required inhaled corticosteroids and/or systemic steroids. Subjective Date/time seen: 12/01/24 08:49 Interval history: 11/29/2024: This is a new pulmonary consult for right upper lobe pneumonia. 69-year-old with a history of COPD, hypertension, CKD, osteoarthritis, hydrocephalus with [employer] shunt as a child. Regarding her COPD. Patient smoked cigarettes from age [age] a 1 pack per day for total of 40 pack years. Patient smokes marijuana 2-3 cigarettes a day for the last 40 years. Denies any illicit drug use. She was exposed to secondhand smoke from both of her parents and from her until 2006. 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 To 3 weeks ago the patient could walk a quarter of a mi then have to stop for dyspnea on exertion. Overall she can walk 2 miles in 1 hour. She does have some shortness of breath with her activities of daily living. At baseline her room air saturations are 91-92%. 04/17/2024: Patient presented to the emergency department at [facility] with 2 weeks nausea, vomiting, diarrhea right-sided chest pain, pleuritic in nature, room air saturations 96%., Leukocytosis 17.9, and CT angiogram of the chest that showed moderate to severe apical predominant panlobular emphysema, large masslike consolidation right middle lobe. patient was discharged on azithromycin. No infiltrate or mass in the right upper lobe. Discharged from the emergency department. 05/19/2024: CT scan of the chest with decreased size of the right middle lobe infiltrate and mass now with a cavity. no infiltrate or mass in the right upper lobe. Patient was previously seen in the Pulmonary Clinic on 06/27/2024 for COPD and decreasing right middle lobe cavity. Patient smoked tobacco Quit in 2017and marijuana, does not wheeze, no weight loss. Using trilogy and rescue albuterol 1 to 2 times a day. Daily cough with clear secretions sometimes yellow. Last pneumonia was 2017. plan: PET scan, PFTs, 6 minute walk, sputum for bacterial fungal and AFB X 3. 07/06/2024: CT-PET: Continue decreased size of the right middle lobe infiltrate and cavity now with no cavity and scarring. Small nodule inferior right upper lobe with an SUV of 1.7, patchy airspace opacities in the lower lobes with maximal SUV 3.7 on the right and 2.4 on the left. lingular posterior consolidation with an SUV of 5.6. He these were new since 05/19/2024 and consistent with pneumonia. 07/12/2024: Dr. Haider called her, reviewed all test results 07/12/2024. 1) PET Scan 07/06/24; IMPRESSION: Mild uptake associated with multiple new regions of consolidation and patchy airspace opacities in both lungs which given the appearance, distribution and rapid progression most consistent with evolving pneumonia. Small region of discoid atelectasis without abnormal FDG uptake at the site of the prior large masslike opacity in the right middle lobe consistent with resolving pneumonia. No other FDG avid lesions suspicious for primary malignancy or metastatic disease. PET is consistent with pneumonia, not cancer. 2) Sputum; sputum on 06/29/2024 Normal jackie, AFB smear negative, AFB culture negative at 6 weeks. No fungal elements seen. Scant growth of Tanja parapsilosis sp. Isolate #2: dematiaceous mold isolated. Sputum 06/30/2024: Growth of normal jackie. AFB smear negative, AFB culture negative at 6 weeks. No fungal elements seen. Growth of an unidentified mold not resembling any of the known human pathogens on the fungal culture. Sputum 07/01/2024: Growth of normal jackie, AFB smear negative, AFB cultures negative at 6 weeks. No fungal elements seen, no fungal growth at 4 weeks. 3) 6 minute walk showed that she completed is 273 m, 900 ft, did not desaturate. 4) PFT show moderate obstructive ventilatory impairment without response to bronchodilator, and she is on Trelegy 100, did not appear on her med list on the first office visit. She is on treatment, CAT score is low, nothing else needed right now. 5) She found out that her primary care doctor does not have rheumatoid arthritis as a diagnosis. During her initial visit, she told me that she had RA but now we know, she does not. This was important because RA can cause cavitary lung lesions. 11/28/2024: Patient presented to the emergency department with shortness of breath and dyspnea on exertion. on 11/19/2024 after being exposed to her son in law and daughter who were COVID positive she tested COVID positive. She had a fever, cough, increased phlegm production that was calderon with occasional hemoptysis. Her symptoms progressed and on 11/28 she went to a PCP and had an elevated white blood cell count was told to come to the emergency department. She was afebrile. Blood pressure 111/58, heart rate 114, respirations 17, room air saturations 95% and then placed on 2 L with saturations 96%. She had decreased breath sounds in the right upper lobe. White blood cell count 28.9 with eosinophils 0.2%. Creatinine 0.99, COVID influenza and RSV RT PCR assay negative. Chest x-ray with dense consolidation right upper lobe. CT angiogram of the chest compared to PET scan CT on 07/06/2024 showed no change in her apical predominant panlobular emphysema, new dense right upper lobe consolidative infiltrate, unchanged right middle lobe scarring -atelectasis, resolved bilateral lower lobe infiltrates, resolved lingular infiltrates. Patient was given 1 L IV fluids. 11/29/2024: infectious disease consulted, antibiotics changed to cefepime, Flagyl and azithromycin. currently the patient tells me she feels the same as yesterday. When I enter the room she was on 2 L nasal cannula saturation 97%. I decreased her to room air and her saturations were 94%. White blood cell count 31.0, creatinine 0.82, CRP 26.1, procalcitonin 2.1, BNP 1280, MRSA nasal swab PCR negative. room air ABG later in the day was 7 0.42/33/65 11/30/24: The patient tells me she is feeling better. States she has 20% back to her baseline. Her cough is unchanged. She is producing calderon phlegm with no blood. Her dyspnea on exertion is worse than when she came to the hospital. Patient had a fever last night at 38.3. Currently she is on room air with saturations 94%. White blood cell count improved to 21.2, creatinine 0.79. CRP is minimally improved from 26.1 on 11/29/2024 to 23.7 today. Procalcitonin is improved from 2.1 yesterday to 1.5 today. yesterday she was 1.5 L positive, cumulative she is 1.9 L positive since admission. 12/01/24: The patient tells me she continues to improve. She states she is breathing 50% back to her baseline. Her cough is normal, she still has right-sided chest pain. She has developed diarrhea. Her last fever was on 11/29/2024 at 9:02 p.m. and she has been afebrile since then. When I enter the room she was on 2 L nasal cannula saturations 96%, I decreased her to 1 L and her saturation was 95%. Her white blood cell count is 20.6, creatinine was 0.83. Her CRP has decreased from 20/3 0.7 yesterday to 15.9 today. Her procalcitonin is decreased from 1.5 yesterday to 1.1 today. Her BNP remains essentially unchanged from 1280 on 11/29/2024 to 1320 today. Her weight today is 79.6. Her chest x-ray today shows continued right upper lobe consolidative mass with no change from 11/28/2024. DATA: 11/29/2024; EXAMINATION: CTA chest PE protocol INDICATION: Shortness of breath and hypoxia COMPARISON: CT dated 05/19/2024. FINDINGS: There is extensive masslike consolidation right upper lobe with surrounding pneumonia. There is atherosclerosis of the aorta without evidence for aneurysm or dissection. Small pericardial effusion. Study is technically adequate without evidence for pulmonary embolism. Trace right pleural effusion. Mild thoracic spondylosis with accentuated kyphosis. IMPRESSION: 1. Extensive masslike consolidation right upper lobe with surrounding airspace consolidation, consistent with pneumonia. Recommend follow-up CT in 2-3 months following appropriate therapy to exclude underlying mass. 2: Small pericardial effusion. Trace right pleural effusion. 07/06/2024: EXAMINATION: PET skull to mid thigh INDICATION: Lung nodule COMPARISON: Chest CT dated 05/19/2024 and 04/17/2024 FINDINGS: Head/neck: There is symmetric increased activity in the oral cavity, palatine and lingual tonsils, parotid glands, submandibular glands, laryngeal muscles and ocular muscles without CT correlate, likely physiologic. There is linear increased FDG uptake extending anteroposteriorly along the right C3-C4 facet joint with corresponding severe osteoarthritis on CT and likely degenerative in etiology. No pathologically enlarged cervical lymphadenopathy or suspicious foci of increased FDG uptake in the visualized head or neck. Chest: Moderate emphysema. Continued evolution in patchy bilateral lung disease with near complete resolution of the previously large masslike region of consolidation seen on study from 04/17/2024 which developed some central cavitation on the more recent study from 05/19/2024 which is continued to significantly decrease in the size now with horizontal bandlike configuration consistent with residual atelectasis/scarring related to prior pneumonia. There is mild FDG uptake associated with a new small nodular opacity in the inferior right upper lobe with maximal SUV of 1.7, new patchy airspace opacities in the bilateral lower lobes with maximal SUV of 3.7 on the right and 2.4 on the left and a larger region of consolidation at the posterior lingula with maximal SUV of 5.6. These are all new since the prior study consistent with pneumonia. No pleural effusion. Heart size is normal. No pericardial effusion. Thoracic aorta is normal in caliber. No pathologically enlarged or abnormally FDG avid thoracic lymphadenopathy. Small focus of increased activity at the medial aspect of the right supraspinatus muscle without radiologic correlate which is likely physiologic. Small focus of increased uptake along the basilic vein at the distal right upper arm which is a small focus of uptake along the brachial vein likely representing minimal extravasation at the site of injection and adjacent mild lymphatic uptake activity. The mild uptake along the left triceps muscle without radiologic correlate also likely physiologic. Abdomen/pelvis/proximal thighs: Physiologic renal accumulation and excretion of FDG activity in the kidneys, bladder and along portions of ureters. Normal degree and heterogenous pattern of increased uptake throughout the liver without radiologic correlate or dominant FDG avid lesion. The gallbladder, pancreas, spleen and bilateral adrenal glands are normal. Mild uptake scattered throughout the bowels without radiologic correlate, also likely physiologic. No other abnormal foci of increased FDG uptake or pathologically enlarged lymphadenopathy in the abdomen, pelvis or proximal thighs. Musculoskeletal: Severe lumbar spondylosis. No other suspicious lytic, blastic or abnormally FDG avid bone lesions to suggest osseous metastatic disease. IMPRESSION: 1. Mild uptake associated with multiple new regions of consolidation and patchy airspace opacities in both lungs which given the appearance, distribution and rapid progression most consistent with evolving pneumonia. Small region of discoid atelectasis without abnormal FDG uptake at the site of the prior large masslike opacity in the right middle lobe consistent with resolving pneumonia. 2. No other FDG avid lesions suspicious for primary malignancy or metastatic disease. 05/19/24: Clinical indication:Right lung mass COMPARISON:04/17/2024 FINDINGS: LUNG:Interval decrease in size of the mass within the right middle lobe, now demonstrating cavitation for which a possible fungal etiology is suspected. The remainder of the lungs are clear. MEDIASTINUM:No pathologically enlarged or morphologically suspicious lymph nodes within the mediastinum. HEART:The heart is of normal size, without pericardial effusion. SOFT TISSUES OF THE CHEST: Unremarkable BONES OF THE CHEST: No lytic or blastic lesions identified IMPRESSION: Interval decrease in size of the abnormality seen within the right middle lobe on previous study, now demonstrating a central cavity, possibly fungal in origin. 04/17/2024: EXAMINATION: CTA chest PE protocol INDICATION: Shortness of breath with elevated d-dimer. Pulmonary embolus suspected clinically COMPARISON: Reference is made to CT examination of the chest dated 05/20/2023. Reference is also made to plain film evaluation of the chest, performed the same day. FINDINGS: No filling defect is identified within the main or proximal pulmonary arteries. The main pulmonary artery is enlarged, suggesting pulmonary hypertension. Intrapulmonary lymph node measuring 6 mm in short axis dimension is redemonstrated within the right middle lobe, increased in size since 05/20/2023. Interval development of a focus of soft tissue attenuation between the right middle and right lower lobes. Blood vessels course through this abnormality, rather than traversing around the abnormality. Severe panlobular emphysematous disease is also noted, as is a small right-sided pleural effusion. The thoracic aorta is nonaneurysmal. No dissection is appreciated Within the upper abdomen: The bilateral adrenal glands are unremarkable. Gallbladder is decompressed, and otherwise unremarkable. IMPRESSION: Panlobular emphysematous disease with interval development of a mass of soft tissue attenuation within the right hemithorax, with surrounding groundglass opacification. The rapidity of growth along with the leukocytosis suggest infectious etiology, rather than malignancy. Follow-up to resolution is recommended, as a malignancy may have a similar appearance No pulmonary embolus. No aortic dissection. 05/21/2023: Clinical Indication: Sepsis CT Scan of the Chest, Abdomen, and Pelvis without Contrast: Findings: There is no evidence of any significant mediastinal, hilar or axillary lymphadenopathy. The mediastinal soft tissues appear normal. Small to moderate pericardial effusion. There is no evidence of pleural or pericardial effusion. The lungs are clear. No pulmonary nodules or infiltrates are noted. Moderate emphysema present. The liver, spleen, pancreas, gallbladder, adrenals and kidneys are within normal limits. There are atherosclerotic calcifications of the aorta. No lymphadenopathy. No bowel obstruction or bowel wall thickening. There is no evidence to suggest acute appendicitis. Urinary bladder is unremarkable. No pelvic mass seen. No ascites. Impression: Moderate emphysema. [id number] pericardial effusion. No significant abnormality evident in the abdomen or pelvis. Review of Systems Constitutional: Constitutional: Reports no additional constitutional complaints Eyes: Eyes: Reports no additional eye complaints ENT: Reports system reviewed and no additional complaints, except as documented Cardiovascular: Cardiovascular: Reports no additional cardiovascular complaints Respiratory: Respiratory: Reports no additional respiratory complaints Gastrointestinal: Gastrointestinal: Reports no additional gastrointestinal complaints Musculoskeletal: Musculoskeletal: Reports no additional musculoskeletal complaints Neurologic: Reports system reviewed and no additional complaints, except as documented Psychiatric: Psychiatric: Reports no additional psychiatric complaints Endocrine: Endocrine: Reports no additional endocrine complaints Hematologic/Lymphatic: Hematologic/Lymphatic: Reports no additional hematologic/lymphatic complaints Allergic/Immunologic: Allergic/Immunologic: Reports no additional allergic/immunologic complaints Exam Const: General: cooperative, comfortable and uncomfortable Orientation/consciousness: oriented to person, oriented to place and oriented to time Other: no respiratory distress. HENMT: Head: normal to inspection Ears: hearing grossly normal bilaterally Eyes: General: appearance normal, both eyes and all related structures Neck: Neck: normal visual inspection Chest: Chest palpation & inspection: normal inspection of the chest Resp: Effort & Inspection: normal respiratory effort and able to speak in complete sentences Auscultation: no crackles, no rales, no rhonchi, wheezes and diminished lung sounds Other: few scant expiratory wheezes. Cardio: Jugular venous distension: no JVD GI: Inspection: normal to inspection Skin: General skin exam: normal color Neuro: General: oriented to person, oriented to place and oriented to time Extrem: General: normal to inspection Psych: Appearance: grossly normal Objective Data Vital Signs Vital Signs: Vital Signs - 24 hr 11/30/24 12:00 11/30/24 13:09 11/30/24 13:18 Temperature Pulse Rate 87 99 Respiratory Rate 18 Blood Pressure Pulse Oximetry Oxygen Delivery Room Air Fraction of Inspired Oxygen 11/30/24 13:22 11/30/24 14:00 11/30/24 16:00 Temperature 36.2 C L Pulse Rate 100 87 85 Respiratory Rate 18 20 Blood Pressure 94/60 L Pulse Oximetry 94 Oxygen Delivery Fraction of Inspired Oxygen 11/30/24 18:47 11/30/24 20:00 11/30/24 20:00 Temperature Pulse Rate 87 Respiratory Rate Blood Pressure 110/74 Pulse Oximetry Oxygen Delivery Room Air Fraction of Inspired Oxygen 11/30/24 20:19 11/30/24 20:58 11/30/24 21:05 Temperature 36.6 C Pulse Rate 86 89 Respiratory Rate 16 18 Blood Pressure 121/69 Pulse Oximetry 96 91 Oxygen Delivery Room Air Fraction of Inspired Oxygen 21 11/30/24 21:14 11/30/24 23:20 12/01/24 00:00 Temperature 36.2 C L Pulse Rate 92 89 96 Respiratory Rate 18 20 Blood Pressure 116/75 Pulse Oximetry 95 Oxygen Delivery Fraction of Inspired Oxygen 12/01/24 02:44 12/01/24 02:52 12/01/24 04:00 Temperature Pulse Rate 96 92 97 Respiratory Rate 18 18 Blood Pressure Pulse Oximetry Oxygen Delivery Fraction of Inspired Oxygen 12/01/24 04:30 Temperature 37.2 C Pulse Rate 70 Respiratory Rate 20 Blood Pressure 141/80 H Pulse Oximetry 94 Oxygen Delivery Fraction of Inspired Oxygen Intake/Output Intake/Output: Intake & Output 11/28/24 11/29/24 11/30/24 12/01/24 23:59 23:59 23:59 23:59 Intake Total 1840 1220 350 Output Total 300 Balance 1540 1220 350 Meds/Results Medications: Active Medications Generic Name Dose Route Start Last Admin Trade Name Freq PRN Reason Stop Dose Admin Acetaminophen 650 mg 11/29/24 04:32 11/29/24 21:02 Acetaminophen 325 Mg Tablet PO 650 mg Q6H PRN Administration Pain 1-3 or Fever Hydrocodone Bitart/Acetaminophen 1 tab 11/29/24 04:31 11/30/24 18:47 Hydrocodone/Acetaminophen (*Crx) 5-325 Mg Tablet PO 1 tab Q8H PRN Administration Pain 4-10 Acetylcysteine 200 mg 11/29/24 08:00 12/01/24 08:41 Acetylcysteine 20% Inhal Soln 800 Mg/4 Ml Vial INHALATION Not Given Q6HRT ABIODUN Albuterol 2 puff 11/29/24 04:31 11/29/24 09:01 Albuterol Sulfate (*Sp) Aerosol 1 Puff INHALATION 2 puff Q6HRT PRN Administration Shortness Of Breath Albuterol/Ipratropium 3 ml 11/29/24 14:00 12/01/24 08:42 Ipratropium 0.5 Mg/Albuterol Sulfate 2.5 Mg Ampul.Neb 3 Ml INHALATION Not Given Q6HRT ABIODUN Alprazolam 0.5 mg 11/29/24 04:31 Alprazolam (*Crx) 0.5 Mg Tablet PO BID PRN Anxiety Amlodipine Besylate 5 mg 11/29/24 21:50 11/30/24 09:54 Amlodipine Besylate 5 Mg Tablet PO 5 mg DAILY ABIODUN Administration Aspirin 81 mg 11/29/24 09:00 11/30/24 09:54 Aspirin 81 Mg Enteric Tablet PO 81 mg DAILY ABIODUN Administration Enoxaparin Sodium 40 mg 11/29/24 09:00 11/30/24 09:54 Enoxaparin 40 Mg/0.4 Ml Syringe SUB-Q 40 mg DAILY ABIODUN Administration Gabapentin 100 mg 11/29/24 09:00 11/30/24 21:34 Gabapentin 100 Mg Capsule PO 100 mg Q12HR ABIODUN Administration Guaifenesin 1,200 mg 11/29/24 21:00 11/30/24 21:35 Guaifenesin 12 Hr 600 Mg Tabcr PO 1,200 mg Q12HR ABIODUN Administration Metronidazole 500 mg in 100 mls @ 100 mls/hr 11/29/24 06:00 12/01/24 06:48 Flagyl 500 Mg/Iso Soln 100 Ml IVPB 100 mls/hr Q8HR ABIODUN Administration Cefepime HCl 2 gm/ Sodium 50 mls @ 100 mls/hr 11/29/24 14:00 12/01/24 06:24 Chloride IVPB Infused Q8HR ABIODUN Infusion Potassium Chloride 40 meq/ 520 mls @ 130 mls/hr 12/01/24 07:30 Sodium Chloride IVPB 12/01/24 11:29 ONCE ONE Lisinopril 20 mg 11/29/24 21:50 11/30/24 09:53 Lisinopril 20 Mg Tablet PO 20 mg QAM ABIODUN Administration Loperamide HCl 2 mg 11/30/24 04:13 11/30/24 05:08 Loperamide Hcl 2 Mg Capsule PO 2 mg PRN PRN Administration Diarrhea Morphine Sulfate 2 mg 11/30/24 11:29 12/01/24 01:22 Morphine Sulfate (*Crx) 2 Mg/Ml Inj IV PUSH 2 mg Q4H PRN Administration Pain Rated 7-10 Multivitamins/Minerals 1 tablet 11/29/24 21:00 11/30/24 21:35 Multivits W-Fe,Min Chewable Tablet PO 1 tablet HS ABIODUN Administration Pantoprazole Sodium 40 mg 11/29/24 21:00 11/30/24 21:35 Pantoprazole 40 Mg Tablet PO 40 mg HS ABIODUN Administration Radiology Results: ITS Impressions Chest CTA 11/29/24 07:11 IMPRESSION: 1. Extensive masslike consolidation right upper lobe with surrounding airspace consolidation, consistent with pneumonia. Recommend follow-up CT in 2-3 months following appropriate therapy to exclude underlying mass. 2: Small pericardial effusion. Trace right pleural effusion. Abdomen Ultrasound 11/30/24 09:38 IMPRESSION: 1: Unremarkable limited abdominal ultrasound. Chest X-Ray 12/01/24 06:17 Impression: 1: Right upper lobe airspace consolidation, compatible with pneumonia. Superimposed masslike density present. Cannot exclude underlying malignancy. Labs Labs: Laboratory Results - last 24 hr 11/29/24 11/30/24 12/01/24 15:10 11:27 04:59 WBC 20.6 H RBC 3.05 L Hgb 9.1 L Hct 29.2 L MCV 95.7 MCH 29.8 MCHC 31.2 L RDW 13.8 Plt Count 427 H MPV 9.2 Immature Gran % (Auto) 1.0 H Neut % (Auto) 84.0 H Lymph % (Auto) 6.9 L Davison % (Auto) 6.8 Eos % (Auto) 1.0 Baso % (Auto) 0.3 Lymph # (Auto) 1.42 Davison # (Auto) 1.4 H Eos # (Auto) 0.2 Baso # (Auto) 0.1 Abs Immat Gran (auto) 0.20 H Absolute Neuts (auto) 17.3 H Absolute Nucleated RBC 0.000 Nucleated RBC % 0.0 ESR 100 H Sodium 131 L Potassium 2.8 L* Chloride 99 Carbon Dioxide 25 Anion Gap 7 BUN 13 Creatinine 0.83 Estim Creat Clear Calc 61 Estimated GFR > 60 Glucose 103 Calcium 8.5 Magnesium 1.8 Total Bilirubin 0.3 AST 50 H ALT 54 H Alkaline Phosphatase 137 H C-Reactive Protein 15.9 H NT-Pro-B Natriuret Pep 1320 H Total Protein 6.2 L Albumin 2.8 L Procalcitonin 1.1 Nasal MRSA (PCR) Not detected Chlamy pneumoniae PCR Not detected Adenovirus (PCR) Not detected B. pertussis DNA (PCR) Not detected B.parapertussis DNA PCR Not detected Coronavirus OC43 (PCR) Not detected Coronavirus HKU1 (PCR) Not detected Coronavirus 229E (PCR) Not detected Coronavirus NL63 (PCR) Not detected Human Metapneumovir PCR Not detected Influenza A (H1) PCR Not detected Influ A (H1/09) PCR Not detected Influenza A (H3) PCR Not detected Influenza Type A (PCR) Not detected Influenza Type B (PCR) Not detected M. pneumoniae (PCR) Not detected Parainfluenza 1 (PCR) Not detected Parainfluenza 2 (PCR) Not detected Parainfluenza 3 (PCR) Not detected Parainfluenza 4 (PCR) Not detected RSV (PCR) Not detected Entero/Rhino (PCR) Not detected SARS-CoV-2 (PCR) Not detected
--- NOTE | 2024-12-01 08:54 | ECHO_ITS ---
Patient Info Name: Fara Valencia Age: 69 years : 1955 Gender: Female Ht: 61 in Wt: 175 lbs BSA: 1.88 m2 HR: 83 bpm BP: 141 / 80 mmHg Technical Quality: Good Exam Date: 12/01/2024 10:24 AM Patient Status: I Admit Date: 11/30/2024 Exam Type: CA echo doppler color flow Complete two-dimensional, color flow and Doppler transthoracic echocardiogram is performed. Staff Referring Physician: Eamon Chong Movie Projectionist: Beba Thomas Attending Provider: Doc Nolan Summary 1. Complete two-dimensional, color flow and Doppler transthoracic echocardiogram is performed. 2. Left ventricular chamber dimension is normal. 3. Left ventricular systolic function is normal, estimated at 60-65. 4. The left ventricular diastolic function is grade I diastolic dysfunction. 5. E/e' 6 is not elevated. Left Ventricle E/e' 6 is not elevated. Left ventricular chamber dimension is normal. Left ventricular systolic function is normal, estimated at 60-65. The left ventricular diastolic function is grade I diastolic dysfunction. Right Ventricle Right ventricular chamber dimension is normal. Right ventricular systolic function is normal and with normal TAPSE 1.7 cm. Left Atria Left atrial chamber dimension is normal. Right Atria Right atrial chamber dimension is normal. Aortic Valve The aortic valve is not well visualized. Cannot determine number of aortic valve leaflets. There is no aortic valve stenosis. There is no aortic valve regurgitation. Pulmonic Valve There is no pulmonic regurgitation. Mitral Valve There is no mitral valve stenosis. There is no mitral valve regurgitation. Tricuspid Valve There is no tricuspid valve regurgitation. Pericardium/Pleural There is no pericardial effusion. Inferior Vena Cava Normal inferior vena cava with >50% collapse upon inspiration consistent with normal right atrial pressure, 5 mmHg. Aorta The aortic root size at the sinus of Valsalva is normal. Left Ventricular Outflow Tract Name Value Normal LVOT 2D LVOT Diameter 2.0 cm LVOT Doppler LVOT Peak Velocity 115 cm/s LVOT Peak Gradient 5 mmHg LVOT Mean Gradient 4 mmHg LVOT VTI 22 cm LVOT Stroke Volume 68 ml LVOT CO 5.7 l/min LVOT CI 3.0 l/min/m2 Pulmonic Valve Name Value Normal RVOT Doppler RVOT Peak Velocity 53 cm/s RVOT Peak Gradient 1 mmHg PV Doppler PV Peak Velocity 61 cm/s PV Peak Gradient 2 mmHg Mitral Valve Name Value Normal MV Diastolic Function MV E Peak Velocity 62 cm/s MV A Peak Velocity 73 cm/s MV E/A 0.8 MV Decel Time (PW) 184 ms MV Annular TDI MV E/e' (Septal) 8.1 MV E/e' (Lateral) 6.0 MV E/e' (Average) 7.1 Tricuspid Valve Name Value Normal Estimated PAP/RSVP RA Pressure 5 mmHg <=5 Aortic Valve Name Value Normal AV Doppler AV Peak Velocity 160 cm/s AV Peak Gradient 10 mmHg AV Area (Cont Eq Kahlil) 2.2 cm2 AV DI (Kahlil) 0.72 AV Regurgitation 2D LVOT Area 3.1 cm2 Ventricles Name Value Normal LV Dimensions 2D/MM IVS Diastolic Thickness (2D) 1.0 cm 0.6-1.0 LVID Diastole (2D) 4.9 cm 3.8-5.2 LVIW Diastolic Thickness (2D) 1.0 cm 0.6-0.9 LVID Systole (2D) 3.1 cm 2.2-3.5 LVOT Diameter 2.0 cm LV Mass (2D Cubed) 172.04 g 67.00-162.00 LV Mass Index (2D Cubed) 91 g/m2 43-95 Relative Wall Thickness (2D) 0.40 <=0.42 LV Fractional Shortening/Ejection Fraction 2D/MM LV Fractional Shortening (2D) 37 % 27-45 LV EF (2D Teichholz) 67 % LV Diastolic Volume (4C MOD) 105 ml LV EF (4C MOD) 66 % LV Diastolic Volume (2C MOD) 73 ml LV EF (2C MOD) 63 % LV Diastolic Volume (BP MOD) 92 ml 46-106 LV Diastolic Volume Index (BP MOD) 49 ml/m2 29-61 LV Systolic Volume (BP MOD) 33 ml 14-42 LV Systolic Volume Index (BP MOD) 18 ml/m2 8-24 LV EF (BP MOD) 64 % 54-74 LV Diastolic Length (4C) 7.5 cm LV Systolic Length (4C) 6.1 cm LV Stroke Volume (4C MOD) 69 ml Atria Name Value Normal LA Dimensions LA Volume (4C A-L) 48 ml LA Volume (BP A-L) 36 ml RA Dimensions RA Systolic Major [place] Length (4C) 4.3 cm 2.2-2.8 RA Area (4C) 10.2 cm2 <=18.0 Report Signatures
[2024-12-01] MEDS: POTASSIUM CHLORIDE INJ 40 MEQ in SODIUM CHLORIDE 0.9% IV 500 ML 130 MEQ IVPB (09:02)
[2024-12-01] MEDS: guaiFENesin 12 HR 600 MG TABCR 1200 MG PO ×2 (09:04→20:59)
[2024-12-01] MEDS: ASPIRIN 81 MG ENTERIC TABLET PO (09:04)
[2024-12-01] MEDS: GABAPENTIN 100 MG CAPSULE PO ×2 (09:04→20:58)
[2024-12-01] MEDS: ENOXAPARIN 40 MG/0.4 ML SYRINGE SUB-Q (09:05)
[2024-12-01] MEDS: HYDROcodone/acetaminophen (*CRX) 5-325 MG TABLET 1 TAB PO ×2 (09:26→18:18)
[2024-12-01] MEDS: LOPERAMIDE HCL 2 MG CAPSULE PO (09:31)
--- NOTE | 2024-12-01 11:12 | P.PNIM_ITS ---
Progress Note: A&P Assessment and Plan (1) Sepsis: Qualifiers: Sepsis acute organ dysfunction status: unspecified Sepsis type: sepsis due to unspecified organism Qualified Code(s): A41.9 - Sepsis, unspecified o rganism Code(s): A41.9 - Sepsis, unspecified organism Status: Acute Assessment and Plan: Meeting at SIRS criteria likely secondary to underlying lobar pneumonia recent COVID infection testing positive a week prior but is not currently positive * Infectious disease consulted changed IV antibiotics to cefepime, Flagyl and azithromycin, azithromycin has been completed, ESR 125, WBC peaked at 31.1 downtrending 20 today * sputum culture pending * Two sets of blood cultures NGTD q48 hr * trend C-reactive proteins * procalcitonin level 2.1 down to 1.1 (2) Lobar pneumonia: Code(s): J18.1 - Lobar pneumonia, unspecified organism Status: Acute Assessment and Plan: CTA showing extensive masslike consolidation right upper lobe with surrounding airspace consolidation consistent with pneumonia. MRSA negative * See Above #1 * Bronchodilators. increased to Q 4 for patient's continued wheezing per pulmonology * Guaifenesin * incentive spirometry while awake. * sputum culture ordered * influenza/COVID/RSV negative * respiratory panel * Legionella, mycoplasma chlamydia pneumoniae pending * supplemental oxygen therapy to maintain oxygen 92% * Pulmonary consulted request if patient's wheezing does not improve with the increased bronchodilators to 1st attempt inhaled steroids and if still no improvement oral prednisone at 40 mg daily but would like to avoid systematic steroids able. (3) Transaminitis: Code(s): R74.01 - Elevation of levels of liver transaminase levels Status: Acute Assessment and Plan: Patient with elevated liver enzymes POA denies any abdominal tenderness * U/S no significant findings * Hepatitis panel with reactive Hep C AB/RNA pending * Trend (4) Acute hyponatremia: Code(s): E87.1 - Hypo-osmolality and hyponatremia Status: Acute Assessment and Plan: Patient hyponatremic 129 POA Likely secondary to dehydration improving fluids * IV fluids * Trend daily labs * Encourage oral intake (5) COPD (chronic obstructive pulmonary disease): Code(s): J44.9 - Chronic obstructive pulmonary disease, unspecified Status: Acute Assessment and Plan: Patient was previous smoker with history of COPD * Inhalers p.r.n. continued * DuoNebs scheduled * Supplemental oxygen wean as tolerated to maintain 92% (6) Hypertension: Code(s): I10 - Essential (primary) hypertension Status: Chronic Assessment and Plan: Patient with history of hypertension primary care physician recently discontinued patient's amlodipine and lisinopril * Monitor BP per unit protocol (7) Acute hypokalemia: Code(s): E87.6 - Hypokalemia Status: Acute Assessment and Plan: Potassium 2.8 * replenished 40 meq * trend replenish as needed (8) Hypomagnesemia: Code(s): E83.42 - Hypomagnesemia Status: Acute Assessment and Plan: Mag 1.5 * replenished 2g IVP * trend and replenish as needed Plan Code status: Full code per patient DVT prophylaxis: Lovenox Stress ulcer prophylaxis: NA PT/OT notes: Ambulatory with walker Disposition: Patient admitted to the medical unit for further evaluation and treatment pneumonia consult to Pulmonary and Infectious Disease continue with current treatment plan patient was ambulatory with walker however may need evaluation by PT/OT prior to discharge for any further discharge planning needs. Time Spent With Patient Time with patient: 15 - 25 minutes Subjective Date/time seen: 12/01/24 11:12 Interval history: Patient is a 69-year-old female admitted for acute respiratory failure with hypoxia secondary to sepsis with pneumonia. Patient admitted to the medical unit with consult to pulmonology and Infectious Disease assisting with antibiotic therapy. 12/01/2024: Patient reports overall improvement to her breathing but still with Dyspnea during activity. Cough has improved as well but still with mild to moderate wheezing. Review of Systems Review of Systems: All systems reviewed & are unremarkable except as noted in HPI and below Exam Const: General: comfortable and no acute distress Other: Pleasant female Eyes: General: appearance normal, both eyes and all related structures Sclera: sclerae normal Pupils: Equal, round and reactive pupils present EOM: EOMs intact bilaterally Neck: Neck: supple and no JVD Resp: Auscultation: wheezes scattered wheezes and diminished lung sounds on the right in the upper lung gauthier Cardio: Rate: regular rate Rhythm: regular rhythm GI: Auscultation: normal bowel sounds Skin: General skin exam: normal color Wounds: no wounds Neuro: General: gait normal Cranial nerves: Yes Equal, round and reactive pupils present Speech: normal speech Motor exam (neuro): 5/5 motor strength present throughout Sensory Exam: normal sensation Extrem: General: normal to inspection Psych: Mental Status: mental status grossly normal Affect: normal affect Objective Data Vital Signs Vital Signs: Vital Signs - 24 hr 11/30/24 12:00 11/30/24 13:09 11/30/24 13:18 Temperature Pulse Rate 87 99 Respiratory Rate 18 Blood Pressure Pulse Oximetry Oxygen Delivery Room Air Fraction of Inspired Oxygen 11/30/24 13:22 11/30/24 14:00 11/30/24 16:00 Temperature 97.2 F L Pulse Rate 100 87 85 Respiratory Rate 18 20 Blood Pressure 94/60 L Pulse Oximetry 94 Oxygen Delivery Fraction of Inspired Oxygen 11/30/24 18:47 11/30/24 20:00 11/30/24 20:00 Temperature Pulse Rate 87 Respiratory Rate Blood Pressure 110/74 Pulse Oximetry Oxygen Delivery Room Air Fraction of Inspired Oxygen 11/30/24 20:19 11/30/24 20:58 11/30/24 21:05 Temperature 97.8 F Pulse Rate 86 89 Respiratory Rate 16 18 Blood Pressure 121/69 Pulse Oximetry 96 91 Oxygen Delivery Room Air Fraction of Inspired Oxygen 21 11/30/24 21:14 11/30/24 23:20 12/01/24 00:00 Temperature 97.1 F L Pulse Rate 92 89 96 Respiratory Rate 18 20 Blood Pressure 116/75 Pulse Oximetry 95 Oxygen Delivery Fraction of Inspired Oxygen 12/01/24 02:44 12/01/24 02:52 12/01/24 04:00 Temperature Pulse Rate 96 92 97 Respiratory Rate 18 18 Blood Pressure Pulse Oximetry Oxygen Delivery Fraction of Inspired Oxygen 12/01/24 04:30 12/01/24 08:00 12/01/24 08:00 Temperature 98.9 F Pulse Rate 70 93 Respiratory Rate 20 Blood Pressure 141/80 H Pulse Oximetry 94 Oxygen Delivery Room Air Fraction of Inspired Oxygen Intake/Output Intake/Output: Intake & Output 11/28/24 11/29/24 11/30/24 12/01/24 23:59 23:59 23:59 23:59 Intake Total 1840 1220 710 Output Total 300 Balance 1540 1220 710 Meds/Results Medications: Active Medications Generic Name Dose Route Start Last Admin Trade Name Freq PRN Reason Stop Dose Admin Acetaminophen 650 mg 11/29/24 04:32 11/29/24 21:02 Acetaminophen 325 Mg Tablet PO 650 mg Q6H PRN Administration Pain 1-3 or Fever Hydrocodone Bitart/Acetaminophen 1 tab 11/29/24 04:31 12/01/24 09:26 Hydrocodone/Acetaminophen (*Crx) 5-325 Mg Tablet PO 1 tab Q8H PRN Administration Pain 4-10 Albuterol 2 puff 11/29/24 04:31 11/29/24 09:01 Albuterol Sulfate (*Sp) Aerosol 1 Puff INHALATION 2 puff Q6HRT PRN Administration Shortness Of Breath Albuterol/Ipratropium 3 ml 12/01/24 12:00 Ipratropium 0.5 Mg/Albuterol Sulfate 2.5 Mg Ampul.Neb 3 Ml INHALATION Q4HRT ABIODUN Alprazolam 0.5 mg 11/29/24 04:31 Alprazolam (*Crx) 0.5 Mg Tablet PO BID PRN Anxiety Amlodipine Besylate 5 mg 11/29/24 21:50 12/01/24 09:04 Amlodipine Besylate 5 Mg Tablet PO 5 mg DAILY ABIODUN Administration Aspirin 81 mg 11/29/24 09:00 12/01/24 09:04 Aspirin 81 Mg Enteric Tablet PO 81 mg DAILY ABIODUN Administration Enoxaparin Sodium 40 mg 11/29/24 09:00 12/01/24 09:05 Enoxaparin 40 Mg/0.4 Ml Syringe SUB-Q 40 mg DAILY ABIODUN Administration Gabapentin 100 mg 11/29/24 09:00 12/01/24 09:04 Gabapentin 100 Mg Capsule PO 100 mg Q12HR ABIODUN Administration Guaifenesin 1,200 mg 11/29/24 21:00 12/01/24 09:04 Guaifenesin 12 Hr 600 Mg Tabcr PO 1,200 mg Q12HR ABIODUN Administration Metronidazole 500 mg in 100 mls @ 100 mls/hr 11/29/24 06:00 12/01/24 06:48 Flagyl 500 Mg/Iso Soln 100 Ml IVPB 100 mls/hr Q8HR ABIODUN Administration Cefepime HCl 2 gm/ Sodium 50 mls @ 100 mls/hr 11/29/24 14:00 12/01/24 06:24 Chloride IVPB Infused Q8HR ABIODUN Infusion Potassium Chloride 40 meq/ 520 mls @ 130 mls/hr 12/01/24 07:30 12/01/24 09:02 Sodium Chloride IVPB 12/01/24 11:29 130 mls/hr ONCE ONE Administration Lisinopril 20 mg 11/29/24 21:50 12/01/24 09:04 Lisinopril 20 Mg Tablet PO 20 mg QAM ABIODUN Administration Loperamide HCl 2 mg 11/30/24 04:13 12/01/24 09:31 Loperamide Hcl 2 Mg Capsule PO 2 mg PRN PRN Administration Diarrhea Morphine Sulfate 2 mg 11/30/24 11:29 12/01/24 01:22 Morphine Sulfate (*Crx) 2 Mg/Ml Inj IV PUSH 2 mg Q4H PRN Administration Pain Rated 7-10 Multivitamins/Minerals 1 tablet 11/29/24 21:00 11/30/24 21:35 Multivits W-Fe,Min Chewable Tablet PO 1 tablet HS ABIODUN Administration Pantoprazole Sodium 40 mg 11/29/24 21:00 11/30/24 21:35 Pantoprazole 40 Mg Tablet PO 40 mg HS ABIODUN Administration Perflutren Lipid Microsphere 0 ml 12/01/24 08:53 Perflutren Lipid Microspheres 1.5 Ml Vial Diluted To 10 Ml Total Volume IV PUSH 12/04/24 08:54 ONCE PRN adequate visualization Protocol Radiology Results: ITS Impressions Chest CTA 11/29/24 07:11 IMPRESSION: 1. Extensive masslike consolidation right upper lobe with surrounding airspace consolidation, consistent with pneumonia. Recommend follow-up CT in 2-3 months following appropriate therapy to exclude underlying mass. 2: Small pericardial effusion. Trace right pleural effusion. Abdomen Ultrasound 11/30/24 09:38 IMPRESSION: 1: Unremarkable limited abdominal ultrasound. Chest X-Ray 12/01/24 06:17 Impression: 1: Right upper lobe airspace consolidation, compatible with pneumonia. Superimposed masslike density present. Cannot exclude underlying malignancy. Labs Labs: Laboratory Results - last 24 hr 11/29/24 11/29/24 11/30/24 04:51 15:10 11:27 WBC RBC Hgb Hct MCV MCH MCHC RDW Plt Count MPV Immature Gran % (Auto) Neut % (Auto) Lymph % (Auto) [place]ander % (Auto) Eos % (Auto) Baso % (Auto) Lymph # (Auto) [place] # (Auto) Eos # (Auto) Baso # (Auto) Abs Immat Gran (auto) Absolute Neuts (auto) Absolute Nucleated RBC Nucleated RBC % ESR Sodium Potassium Chloride Carbon Dioxide Anion Gap BUN Creatinine Estim Creat Clear Calc Estimated GFR Glucose Calcium Magnesium Total Bilirubin AST ALT Alkaline Phosphatase C-Reactive Protein NT-Pro-B Natriuret Pep Total Protein Albumin Procalcitonin Nasal MRSA (PCR) Not detected Chlamy pneumoniae PCR Not detected Adenovirus (PCR) Not detected B. pertussis DNA (PCR) Not detected B.parapertussis DNA PCR Not detected Coronavirus OC43 (PCR) Not detected Coronavirus HKU1 (PCR) Not detected Coronavirus 229E (PCR) Not detected Coronavirus NL63 (PCR) Not detected Hepatitis C RNA Quant HCV RNA (PCR) log10 Not Reportable Human Metapneumovir PCR Not detected Influenza A (H1) PCR Not detected Influ A (H1/09) PCR Not detected Influenza A (H3) PCR Not detected Influenza Type A (PCR) Not detected Influenza Type B (PCR) Not detected M. pneumoniae (PCR) Not detected Parainfluenza 1 (PCR) Not detected Parainfluenza 2 (PCR) Not detected Parainfluenza 3 (PCR) Not detected Parainfluenza 4 (PCR) Not detected RSV (PCR) Not detected Entero/Rhino (PCR) Not detected SARS-CoV-2 (PCR) Not detected 12/01/24 04:59 WBC 20.6 H RBC 3.05 L Hgb 9.1 L Hct 29.2 L MCV 95.7 MCH 29.8 MCHC 31.2 L RDW 13.8 Plt Count 427 H MPV 9.2 Immature Gran % (Auto) 1.0 H Neut % (Auto) 84.0 H Lymph % (Auto) 6.9 L [place] % (Auto) 6.8 Eos % (Auto) 1.0 Baso % (Auto) 0.3 Lymph # (Auto) 1.42 [place] # (Auto) 1.4 H Eos # (Auto) 0.2 Baso # (Auto) 0.1 Abs Immat Gran (auto) 0.20 H Absolute Neuts (auto) 17.3 H Absolute Nucleated RBC 0.000 Nucleated RBC % 0.0 ESR 100 H Sodium 131 L Potassium 2.8 L* Chloride 99 Carbon Dioxide 25 Anion Gap 7 BUN 13 Creatinine 0.83 Estim Creat Clear Calc 61 Estimated GFR > 60 Glucose 103 Calcium 8.5 Magnesium 1.8 Total Bilirubin 0.3 AST 50 H ALT 54 H Alkaline Phosphatase 137 H C-Reactive Protein 15.9 H NT-Pro-B Natriuret Pep 1320 H Total Protein 6.2 L Albumin 2.8 L Procalcitonin 1.1 Nasal MRSA (PCR) Chlamy pneumoniae PCR Adenovirus (PCR) B. pertussis DNA (PCR) B.parapertussis DNA PCR Coronavirus OC43 (PCR) Coronavirus HKU1 (PCR) Coronavirus 229E (PCR) Coronavirus NL63 (PCR) Hepatitis C RNA Quant HCV RNA (PCR) log10 Human Metapneumovir PCR Influenza A (H1) PCR Influ A (H1/09) PCR Influenza A (H3) PCR Influenza Type A (PCR) Influenza Type B (PCR) M. pneumoniae (PCR) Parainfluenza 1 (PCR) Parainfluenza 2 (PCR) Parainfluenza 3 (PCR) Parainfluenza 4 (PCR) RSV (PCR) Entero/Rhino (PCR) SARS-CoV-2 (PCR) Quality VTE Prophylaxis VTE prophylaxis: pharmacologic ordered -Patient's previous records reviewed on admission -ER notes reviewed in detail on admission -discussed all findings and current treatment plan with patient/Family/POA -Consultations reviewed for recommendations -Patient's disposition for safe discharge discussed with trimming caser Dictation performed by [employer] direct speech recognition software, therefore research analyst variants and typographical errors may occur. Hospitalist MIPS Advance Care Plan I have confirmed that the patient's Advanced Care Plan is present, code status is documented, or surrogate decision maker is listed in patient medical record.: Yes Medication Reconciliation I have utilized all available resources to obtain, update and review the patients current medications (includes all prescriptions, OTC, herbals, cannabis, and nutritional supplements).: Yes The patient is not eligible for med reconciliation; the patient is in a emergent medical situation where delaying treatment would jeopardize the patients health.: No
--- NOTE | 2024-12-01 11:21 | WPDINFPN2 ---
Progress Note: A&P Assessment and Plan (1) Lobar pneumonia: Code(s): J18.1 - Lobar pneumonia, unspecified organism Status: Acute (2) Sepsis: Code(s): A41.9 - Sepsis, unspecified organism Status: Acute (3) COPD (chronic obstructive pulmonary disease): Code(s): J44.9 - Chronic obstructive pulmonary disease, unspecified Status: Acute (4) Transaminitis: Code(s): R74.01 - Elevation of levels of liver transaminase levels Status: Acute Plan # Right upper lobe lobar consolidation with acute onset over the last 2 weeks. Possibly associated with recent COVID infection although PCR analysis at this time is negative. Reports productive cough that is sometimes blood tinged. Sputum without evidence of blood since hospitalization -- community-acquired pneumonia, possible pneumococcus. -- dense consolidation also raises the possibility of malignancy. 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 Right middle lobe process appears to have resolved on current CT scan. -- with relatively acute onset of symptoms, lack of consumptive symptoms, and no known TB exposure this diagnosis seems less likely. # Acute sepsis secondary to the above. # Cough with Mild transaminitis along with mild hyponatremia. -- may be associated with Legionella pneumonia although chest x-ray more consistent with classic bacterial lobar pneumonia. Plan: -- await sputum for Gram stain and culture. -- await urine Legionella and pneumococcal antigens. -- follow blood cultures. -- continue cefepime, metronidazole. Will change metronidazole to oral route. Completed azithromycin. -- with negative nasopharyngeal PCR for SARS-CoV-2 she should not require respiratory isolation at this time. Patient was seen via video telehealth consultation with the assistance of staff. Chart, data, and patient independently reviewed. Patient was located at [facility] while I was located in my [place] office. Received verbal consent from patient. Subjective Date/time seen: 12/01/24 11:22 Interval history: 11/30/2024: T-max a 100.9? overnight. White blood cell count decreased to 21. Feels better today. Continued cough but improved. Decreased pleuritic right-sided chest pain. 12/01/2024: Remains afebrile. White blood cell count remains elevated but significantly improved from admission. breathing and cough improved. Still with right-sided pleuritic chest pain. Sputum culture: Pending Urine Legionella antigen: Pending Urine pneumococcal antigen: Pending Respiratory pathogen panel by PCR: Negative. Blood cultures 11/28: Pending Review of Systems Review of Systems: All systems reviewed & are unremarkable except as noted in HPI and below Exam Narrative: Awake, alert and interactive. No respiratory distress today. Normocephalic. No conjunctivitis. Appears to be breathing comfortably. Abdomen not significantly distended. No evidence of rash. Objective Data Vital Signs Vital Signs: Vital Signs - 24 hr 11/30/24 12:00 11/30/24 13:09 11/30/24 13:18 Temperature Pulse Rate 87 99 Respiratory Rate 18 Blood Pressure Pulse Oximetry Oxygen Delivery Room Air Fraction of Inspired Oxygen 11/30/24 13:22 11/30/24 14:00 11/30/24 16:00 Temperature 97.2 F L Pulse Rate 100 87 85 Respiratory Rate 18 20 Blood Pressure 94/60 L Pulse Oximetry 94 Oxygen Delivery Fraction of Inspired Oxygen 11/30/24 18:47 11/30/24 20:00 11/30/24 20:00 Temperature Pulse Rate 87 Respiratory Rate Blood Pressure 110/74 Pulse Oximetry Oxygen Delivery Room Air Fraction of Inspired Oxygen 11/30/24 20:19 11/30/24 20:58 11/30/24 21:05 Temperature 97.8 F Pulse Rate 86 89 Respiratory Rate 16 18 Blood Pressure 121/69 Pulse Oximetry 96 91 Oxygen Delivery Room Air Fraction of Inspired Oxygen 21 11/30/24 21:14 11/30/24 23:20 12/01/24 00:00 Temperature 97.1 F L Pulse Rate 92 89 96 Respiratory Rate 18 20 Blood Pressure 116/75 Pulse Oximetry 95 Oxygen Delivery Fraction of Inspired Oxygen 12/01/24 02:44 12/01/24 02:52 12/01/24 04:00 Temperature Pulse Rate 96 92 97 Respiratory Rate 18 18 Blood Pressure Pulse Oximetry Oxygen Delivery Fraction of Inspired Oxygen 12/01/24 04:30 12/01/24 08:00 12/01/24 08:00 Temperature 98.9 F Pulse Rate 70 93 Respiratory Rate 20 Blood Pressure 141/80 H Pulse Oximetry 94 Oxygen Delivery Room Air Fraction of Inspired Oxygen Intake/Output Intake/Output: Intake & Output 11/28/24 11/29/24 11/30/24 12/01/24 23:59 23:59 23:59 23:59 Intake Total 1840 1220 710 Output Total 300 Balance 1540 1220 710 Meds/Results Medications: Active Medications Generic Name Dose Route Start Last Admin Trade Name Freq PRN Reason Stop Dose Admin Acetaminophen 650 mg 11/29/24 04:32 11/29/24 21:02 Acetaminophen 325 Mg Tablet PO 650 mg Q6H PRN Administration Pain 1-3 or Fever Hydrocodone Bitart/Acetaminophen 1 tab 11/29/24 04:31 12/01/24 09:26 Hydrocodone/Acetaminophen (*Crx) 5-325 Mg Tablet PO 1 tab Q8H PRN Administration Pain 4-10 Albuterol 2 puff 11/29/24 04:31 11/29/24 09:01 Albuterol Sulfate (*Sp) Aerosol 1 Puff INHALATION 2 puff Q6HRT PRN Administration Shortness Of Breath Albuterol/Ipratropium 3 ml 12/01/24 12:00 Ipratropium 0.5 Mg/Albuterol Sulfate 2.5 Mg Ampul.Neb 3 Ml INHALATION Q4HRT ABIODUN Alprazolam 0.5 mg 11/29/24 04:31 Alprazolam (*Crx) 0.5 Mg Tablet PO BID PRN Anxiety Amlodipine Besylate 5 mg 11/29/24 21:50 12/01/24 09:04 Amlodipine Besylate 5 Mg Tablet PO 5 mg DAILY ABIODUN Administration Aspirin 81 mg 11/29/24 09:00 12/01/24 09:04 Aspirin 81 Mg Enteric Tablet PO 81 mg DAILY ABIODUN Administration Enoxaparin Sodium 40 mg 11/29/24 09:00 12/01/24 09:05 Enoxaparin 40 Mg/0.4 Ml Syringe SUB-Q 40 mg DAILY ABIODUN Administration Gabapentin 100 mg 11/29/24 09:00 12/01/24 09:04 Gabapentin 100 Mg Capsule PO 100 mg Q12HR ABIODUN Administration Guaifenesin 1,200 mg 11/29/24 21:00 12/01/24 09:04 Guaifenesin 12 Hr 600 Mg Tabcr PO 1,200 mg Q12HR ABIODUN Administration Metronidazole 500 mg in 100 mls @ 100 mls/hr 11/29/24 06:00 12/01/24 06:48 Flagyl 500 Mg/Iso Soln 100 Ml IVPB 100 mls/hr Q8HR ABIODUN Administration Cefepime HCl 2 gm/ Sodium 50 mls @ 100 mls/hr 11/29/24 14:00 12/01/24 06:24 Chloride IVPB Infused Q8HR ABIODUN Infusion Potassium Chloride 40 meq/ 520 mls @ 130 mls/hr 12/01/24 07:30 12/01/24 09:02 Sodium Chloride IVPB 12/01/24 11:29 130 mls/hr ONCE ONE Administration Lisinopril 20 mg 11/29/24 21:50 12/01/24 09:04 Lisinopril 20 Mg Tablet PO 20 mg QAM ABIODUN Administration Loperamide HCl 2 mg 11/30/24 04:13 12/01/24 09:31 Loperamide Hcl 2 Mg Capsule PO 2 mg PRN PRN Administration Diarrhea Morphine Sulfate 2 mg 11/30/24 11:29 12/01/24 01:22 Morphine Sulfate (*Crx) 2 Mg/Ml Inj IV PUSH 2 mg Q4H PRN Administration Pain Rated 7-10 Multivitamins/Minerals 1 tablet 11/29/24 21:00 11/30/24 21:35 Multivits W-Fe,Min Chewable Tablet PO 1 tablet HS ABIODUN Administration Pantoprazole Sodium 40 mg 11/29/24 21:00 11/30/24 21:35 Pantoprazole 40 Mg Tablet PO 40 mg HS ABIODUN Administration Perflutren Lipid Microsphere 0 ml 12/01/24 08:53 Perflutren Lipid Microspheres 1.5 Ml Vial Diluted To 10 Ml Total Volume IV PUSH 12/04/24 08:54 ONCE PRN adequate visualization Protocol Radiology Results: ITS Impressions Chest CTA 11/29/24 07:11 IMPRESSION: 1. Extensive masslike consolidation right upper lobe with surrounding airspace consolidation, consistent with pneumonia. Recommend follow-up CT in 2-3 months following appropriate therapy to exclude underlying mass. 2: Small pericardial effusion. Trace right pleural effusion. Abdomen Ultrasound 11/30/24 09:38 IMPRESSION: 1: Unremarkable limited abdominal ultrasound. Chest X-Ray 12/01/24 06:17 Impression: 1: Right upper lobe airspace consolidation, compatible with pneumonia. Superimposed masslike density present. Cannot exclude underlying malignancy. Labs Labs: Laboratory Results - last 24 hr 11/29/24 11/29/24 11/30/24 04:51 15:10 11:27 WBC RBC Hgb Hct MCV MCH MCHC RDW Plt Count MPV Immature Gran % (Auto) Neut % (Auto) Lymph % (Auto) [place]ven % (Auto) Eos % (Auto) Baso % (Auto) Lymph # (Auto) [place] # (Auto) Eos # (Auto) Baso # (Auto) Abs Immat Gran (auto) Absolute Neuts (auto) Absolute Nucleated RBC Nucleated RBC % ESR Sodium Potassium Chloride Carbon Dioxide Anion Gap BUN Creatinine Estim Creat Clear Calc Estimated GFR Glucose Calcium Magnesium Total Bilirubin AST ALT Alkaline Phosphatase C-Reactive Protein NT-Pro-B Natriuret Pep Total Protein Albumin Procalcitonin Nasal MRSA (PCR) Not detected Chlamy pneumoniae PCR Not detected Adenovirus (PCR) Not detected B. pertussis DNA (PCR) Not detected B.parapertussis DNA PCR Not detected Coronavirus OC43 (PCR) Not detected Coronavirus HKU1 (PCR) Not detected Coronavirus 229E (PCR) Not detected Coronavirus NL63 (PCR) Not detected Hepatitis C RNA Quant HCV RNA (PCR) log10 Not Reportable Human Metapneumovir PCR Not detected Influenza A (H1) PCR Not detected Influ A (H1/09) PCR Not detected Influenza A (H3) PCR Not detected Influenza Type A (PCR) Not detected Influenza Type B (PCR) Not detected M. pneumoniae (PCR) Not detected Parainfluenza 1 (PCR) Not detected Parainfluenza 2 (PCR) Not detected Parainfluenza 3 (PCR) Not detected Parainfluenza 4 (PCR) Not detected RSV (PCR) Not detected Entero/Rhino (PCR) Not detected SARS-CoV-2 (PCR) Not detected 12/01/24 04:59 WBC 20.6 H RBC 3.05 L Hgb 9.1 L Hct 29.2 L MCV 95.7 MCH 29.8 MCHC 31.2 L RDW 13.8 Plt Count 427 H MPV 9.2 Immature Gran % (Auto) 1.0 H Neut % (Auto) 84.0 H Lymph % (Auto) 6.9 L [place]ven % (Auto) 6.8 Eos % (Auto) 1.0 Baso % (Auto) 0.3 Lymph # (Auto) 1.42 Craven # (Auto) 1.4 H Eos # (Auto) 0.2 Baso # (Auto) 0.1 Abs Immat Gran (auto) 0.20 H Absolute Neuts (auto) 17.3 H Absolute Nucleated RBC 0.000 Nucleated RBC % 0.0 ESR 100 H Sodium 131 L Potassium 2.8 L* Chloride 99 Carbon Dioxide 25 Anion Gap 7 BUN 13 Creatinine 0.83 Estim Creat Clear Calc 61 Estimated GFR > 60 Glucose 103 Calcium 8.5 Magnesium 1.8 Total Bilirubin 0.3 AST 50 H ALT 54 H Alkaline Phosphatase 137 H C-Reactive Protein 15.9 H NT-Pro-B Natriuret Pep 1320 H Total Protein 6.2 L Albumin 2.8 L Procalcitonin 1.1 Nasal MRSA (PCR) Chlamy pneumoniae PCR Adenovirus (PCR) B. pertussis DNA (PCR) B.parapertussis DNA PCR Coronavirus OC43 (PCR) Coronavirus HKU1 (PCR) Coronavirus 229E (PCR) Coronavirus NL63 (PCR) Hepatitis C RNA Quant HCV RNA (PCR) log10 Human Metapneumovir PCR Influenza A (H1) PCR Influ A (H1/09) PCR Influenza A (H3) PCR Influenza Type A (PCR) Influenza Type B (PCR) M. pneumoniae (PCR) Parainfluenza 1 (PCR) Parainfluenza 2 (PCR) Parainfluenza 3 (PCR) Parainfluenza 4 (PCR) RSV (PCR) Entero/Rhino (PCR) SARS-CoV-2 (PCR)
[2024-12-01 14:08] LABS: Chlamydia pneumoniae, PCR Negative (Negative)
[2024-12-01] MEDS: PANTOPRAZOLE 40 MG TABLET PO (20:59)
[2024-12-01] MEDS: MULTIVITS W-FE,MIN CHEWABLE TABLET 1 TABLET PO (20:59)
--- NOTE | 2024-12-01 22:20 | ECG_ITS ---
Test Date: 2024-12-01 22:32:18 Measurements Intervals [place] Rate: 81 P: 54 IN: 132 QRS: 16 QRSD: 93 T: 51 QT: 369 QTc: 431 Interpretive Statements SINUS RHYTHM DELAYED PRECORDIAL R/S TRANSITION BORDERLINE ECG Compared to ECG 11/28/2024 22:21:23 HEART RATE HAS DECREASED Electronically Signed On 12-02-2024 08:19:51 CDT by Michel Lainez D.O.
--- NOTE | 2024-12-01 22:37 | PC.NURSE ---
Pt. called staff as she woke up to go to the bathroom and had chest pain. Pt. rated pain at '5' out of '10' on a 0-10 pain scale. Pt. described the pain as feeling like something is sitting on her chest without any radiation in pain. Pt. denied previous coughing but proceeded to cough (loose, non-productive) after asked. O2 in place at 2 LPM via nasal cannula. 4 mg morphine given IVP and EKG completed. Mary Kay Mckinley NP notified and ordered a stat troponin to be drawn. Lab notified and will be up to draw troponin.
[2024-12-01 23:27] LABS: Troponin I < 0.012 ng/mL (0.000-0.034)
[2024-12-02] VITALS (23 sets, daily range): BP systolic 104–130; BP diastolic 63–88; PULSE 82–111; RESP 17–24; TEMP 35.9–36.3; O2SAT 91–98
[2024-12-02] MEDS: IPRATROPIUM 0.5 MG/ALBUTEROL SULFATE 2.5 MG AMPUL.NEB 3 ML INHALATION ×6 (00:27→19:26)
[2024-12-02] MEDS: HYDROcodone/acetaminophen (*CRX) 5-325 MG TABLET 1 TAB PO ×2 (04:10→15:38)
[2024-12-02] MEDS: CEFEPIME 2 GM in SODIUM CHLORIDE 0.9% IV 50 ML 100 ML IVPB ×3 (05:31→21:30)
[2024-12-02 05:58] LABS: Hematocrit 28.4 % (37.0-47.0); Hemoglobin 9.0 g/dL (12.0-15.0); Immature Granulocyte Percent A 1.0 % (0-0.5); Lymphocytes Absolute Auto 1.29 K/mm3 (0.9-3.2); Mean Corpuscular HGB Conc 31.7 g/dl (32-36); Mean Corpuscular Hemoglobin 30.5 pg (26-34); Mean Corpuscular Volume 96.3 fl (80-100); Nucleated Red Blood Cells Absolute Auto 0.000 K/mm3 (0.0-0.012); Nucleated Red Blood Cells Perc 0.0 % (0.0-0.2); Platelet Count Result 397 k/mm3 (150-375); Red Blood Count 2.95 M/mm3 (4.2-5.4); White Blood Count 15.7 K/mm3 (4.5-10.0)
[2024-12-02 06:22] LABS: Alanine Aminotransferase 48 U/L (6-35); Albumin Level 2.6 g/dL (3.5-5.1); Alkaline Phosphatase 115 U/L (38-126); Anion Gap 5 mmol/L (4-12); Aspartate Amino Transferase 42 U/L (14-36); Bilirubin,Total 0.2 mg/dL (0.2-1.3); Blood Urea Nitrogen 13 mg/dL (7-17); Calcium 8.5 mg/dL (8.4-10.2); Carbon Dioxide 25 mmol/L (22-30); Chloride 100 mmol/L (98-107); Estimated CRCL calculation 66 ml/min; Estimated Glomerular Filt Rate > 60; Glucose 115 mg/dL (65-110); Magnesium 1.7 mg/dL (1.6-2.3); Potassium 3.1 mmol/L (3.4-5.0); Sodium 130 mmol/L (137-145); Total Protein 6.1 g/dL (6.3-8.2)
[2024-12-02 06:37] LABS: Procalcitonin 0.8 ng/mL
[2024-12-02] MEDS: ENOXAPARIN 40 MG/0.4 ML SYRINGE SUB-Q (08:28)
[2024-12-02] MEDS: guaiFENesin 12 HR 600 MG TABCR 1200 MG PO ×2 (08:28→20:04)
[2024-12-02] MEDS: ASPIRIN 81 MG ENTERIC TABLET PO (08:29)
[2024-12-02] MEDS: ALPRAZolam (*CRX) 0.5 MG TABLET PO (08:29)
[2024-12-02] MEDS: GABAPENTIN 100 MG CAPSULE PO ×2 (08:29→20:05)
[2024-12-02] MEDS: ACETAMINOPHEN 325 MG TABLET 650 MG PO ×2 (09:42→20:05)
[2024-12-02] MEDS: POTASSIUM CHLORIDE 20 MEQ ER TABLET 40 MEQ PO (09:43)
[2024-12-02 10:54] LABS: CRP 12.4 mg/dL (<1.0)
--- NOTE | 2024-12-02 14:22 | P.PNIM_ITS ---
Progress Note: A&P Assessment and Plan (1) Lobar pneumonia: Code(s): J18.1 - Lobar pneumonia, unspecified organism Status: Acute Assessment and Plan: CTA showing extensive masslike consolidation right upper lobe with surrounding airspace consolidation consistent with pneumonia. MRSA negative * See Above #1 * Bronchodilators. increased to Q 4 for patient's continued wheezing per pulmonology * Guaifenesin * incentive spirometry while awake. * sputum culture ordered * influenza/COVID/RSV negative * respiratory panel * Legionella, mycoplasma chlamydia pneumoniae pending * supplemental oxygen therapy to maintain oxygen 92% * Pulmonary consulted request if patient's wheezing does not improve with the increased bronchodilators to 1st attempt inhaled steroids and if still no improvement oral prednisone at 40 mg daily but would like to avoid systematic steroids able. (2) Transaminitis: Code(s): R74.01 - Elevation of levels of liver transaminase levels Status: Acute Assessment and Plan: Patient with elevated liver enzymes POA denies any abdominal tenderness * U/S no significant findings * Hepatitis panel with reactive Hep C AB/RNA pending * Trend (3) Acute hyponatremia: Code(s): E87.1 - Hypo-osmolality and hyponatremia Status: Acute Assessment and Plan: Patient hyponatremic 129 POA Likely secondary to dehydration improving fluids * IV fluids * Trend daily labs * Encourage oral intake (4) COPD (chronic obstructive pulmonary disease): Code(s): J44.9 - Chronic obstructive pulmonary disease, unspecified Status: Acute Assessment and Plan: Patient was previous smoker with history of COPD * Inhalers p.r.n. continued * DuoNebs scheduled * Supplemental oxygen wean as tolerated to maintain 92% (5) Hypertension: Code(s): I10 - Essential (primary) hypertension Status: Chronic Assessment and Plan: Patient with history of hypertension primary care physician recently discontinued patient's amlodipine and lisinopril * Monitor BP per unit protocol (6) Acute hypokalemia: Code(s): E87.6 - Hypokalemia Status: Acute Assessment and Plan: Potassium 3.1 * replenished 40 meq * trend replenish as needed (7) Hypomagnesemia: Code(s): E83.42 - Hypomagnesemia Status: Acute Assessment and Plan: Mag 1.7 * trend and replenish as needed (8) Sepsis: Qualifiers: Sepsis acute organ dysfunction status: unspecified Sepsis type: sepsis due to unspecified organism Qualified Code(s): A41.9 - Sepsis, unspecified organism Code(s): A41.9 - Sepsis, unspecified organism Status: Resolved Assessment and Plan: Meeting at SIRS criteria likely secondary to underlying lobar pneumonia recent COVID infection testing positive a week prior but is not currently positive * Infectious disease consulted changed IV antibiotics to cefepime, Flagyl and azithromycin, azithromycin has been completed, ESR 125, WBC peaked at 31.1 downtrending 20 today * sputum culture pending * Two sets of blood cultures NGTD q48 hr * trend C-reactive proteins * procalcitonin level 2.1 down to 1.1 * Resolved Plan Code status: Full code per patient DVT prophylaxis: Lovenox Stress ulcer prophylaxis: NA PT/OT notes: Ambulatory with walker Disposition: Patient admitted to the medical unit for further evaluation and treatment pneumonia consult to Pulmonary and Infectious Disease continue with current treatment plan patient was ambulatory with walker however may need evaluation by PT/OT prior to discharge for any further discharge planning needs. Time Spent With Patient Time with patient: 15 - 25 minutes Subjective Date/time seen: 12/02/24 14:22 Interval history: Patient is a 69-year-old female admitted for acute respiratory failure with hypoxia secondary to sepsis with pneumonia. Patient admitted to the medical unit with consult to pulmonology and Infectious Disease assisting with antibiotic therapy. 12/02/2024: Patient reports improvement in her shortness of breath however is still experiencing dyspnea on exertion. Patient continues to endorse a productive cough however states that it has improved. Review of Systems Review of Systems: All systems reviewed & are unremarkable except as noted in HPI and below Exam Const: General: comfortable and no acute distress Other: Pleasant female Eyes: General: appearance normal, both eyes and all related structures Sclera: sclerae normal Pupils: Equal, round and reactive pupils present EOM: EOMs intact bilaterally Neck: Neck: supple and no JVD Resp: Auscultation: rhonchi, wheezes scattered wheezes and diminished lung sounds on the right in the upper lung gauthier Cardio: Rate: regular rate Rhythm: regular rhythm GI: Auscultation: normal bowel sounds Skin: General skin exam: normal color Wounds: no wounds Neuro: General: gait normal Cranial nerves: Yes Equal, round and reactive pupils present Speech: normal speech Motor exam (neuro): 5/5 motor strength present throughout Sensory Exam: normal sensation Extrem: General: normal to inspection Psych: Mental Status: mental status grossly normal Affect: normal affect Objective Data Vital Signs Vital Signs: Vital Signs - 24 hr 12/01/24 16:00 12/01/24 16:11 12/01/24 19:43 Temperature Pulse Rate 82 90 92 Respiratory Rate 18 18 Blood Pressure Pulse Oximetry Oxygen Delivery Oxygen Flow Rate 12/01/24 19:52 12/01/24 19:53 12/01/24 20:00 Temperature Pulse Rate 96 Respiratory Rate 18 Blood Pressure Pulse Oximetry 92 95 Oxygen Delivery Room Air Nasal Cannula Oxygen Flow Rate 2 12/01/24 20:00 12/01/24 22:00 12/01/24 22:26 Temperature 97.5 F L 97.8 F Pulse Rate 91 87 89 Respiratory Rate 16 18 Blood Pressure 120/85 142/82 H Pulse Oximetry 95 95 Oxygen Delivery Oxygen Flow Rate 12/02/24 00:00 12/02/24 00:20 12/02/24 00:31 Temperature Pulse Rate 88 96 98 Respiratory Rate 18 18 Blood Pressure Pulse Oximetry Oxygen Delivery Oxygen Flow Rate 12/02/24 04:00 12/02/24 05:00 12/02/24 05:14 Temperature 97 F L Pulse Rate 111 H 93 92 Respiratory Rate 24 H 18 Blood Pressure 114/63 Pulse Oximetry 91 Oxygen Delivery Oxygen Flow Rate 12/02/24 05:25 12/02/24 07:20 12/02/24 07:20 Temperature Pulse Rate 96 89 Respiratory Rate 18 18 Blood Pressure Pulse Oximetry 92 Oxygen Delivery Nasal Cannula Oxygen Flow Rate 1 12/02/24 07:25 12/02/24 08:00 12/02/24 08:00 Temperature Pulse Rate 90 90 Respiratory Rate 18 Blood Pressure Pulse Oximetry 92 Oxygen Delivery Nasal Cannula Oxygen Flow Rate 2 12/02/24 12:05 12/02/24 12:10 12/02/24 14:00 Temperature 97.3 F L Pulse Rate 83 85 91 Respiratory Rate 18 18 22 H Blood Pressure 104/67 Pulse Oximetry 97 Oxygen Delivery Oxygen Flow Rate Intake/Output Intake/Output: Intake & Output 11/29/24 11/30/24 12/01/24 12/02/24 23:59 23:59 23:59 23:59 Intake Total 1840 1220 1900 1080 Output Total 300 Balance 1540 1220 1900 1080 Meds/Results Medications: Active Medications Generic Name Dose Route Start Last Admin Trade Name Freq PRN Reason Stop Dose Admin Acetaminophen 650 mg 11/29/24 04:32 12/02/24 09:42 Acetaminophen 325 Mg Tablet PO 650 mg Q6H PRN Administration Pain 1-3 or Fever Hydrocodone Bitart/Acetaminophen 1 tab 11/29/24 04:31 12/02/24 04:10 Hydrocodone/Acetaminophen (*Crx) 5-325 Mg Tablet PO 1 tab Q8H PRN Administration Pain 4-10 Albuterol 2 puff 11/29/24 04:31 11/29/24 09:01 Albuterol Sulfate (*Sp) Aerosol 1 Puff INHALATION 2 puff Q6HRT PRN Administration Shortness Of Breath Albuterol/Ipratropium 3 ml 12/01/24 12:00 12/02/24 12:05 Ipratropium 0.5 Mg/Albuterol Sulfate 2.5 Mg Ampul.Neb 3 Ml INHALATION 3 ml Q4HRT ABIODUN Administration Alprazolam 0.5 mg 11/29/24 04:31 12/02/24 08:29 Alprazolam (*Crx) 0.5 Mg Tablet PO 0.5 mg BID PRN Administration Anxiety Amlodipine Besylate 5 mg 11/29/24 21:50 12/02/24 08:28 Amlodipine Besylate 5 Mg Tablet PO 5 mg DAILY ABIODUN Administration Aspirin 81 mg 11/29/24 09:00 12/02/24 08:29 Aspirin 81 Mg Enteric Tablet PO 81 mg DAILY ABIODUN Administration Enoxaparin Sodium 40 mg 11/29/24 09:00 12/02/24 08:28 Enoxaparin 40 Mg/0.4 Ml Syringe SUB-Q 40 mg DAILY ABIODUN Administration Gabapentin 100 mg 11/29/24 09:00 12/02/24 08:29 Gabapentin 100 Mg Capsule PO 100 mg Q12HR ABIODUN Administration Guaifenesin 1,200 mg 11/29/24 21:00 12/02/24 08:28 Guaifenesin 12 Hr 600 Mg Tabcr PO 1,200 mg Q12HR ABIODUN Administration Cefepime HCl 2 gm/ Sodium 50 mls @ 100 mls/hr 11/29/24 14:00 12/02/24 05:31 Chloride IVPB 100 mls/hr Q8HR ABIODUN Administration Lisinopril 20 mg 11/29/24 21:50 12/02/24 08:29 Lisinopril 20 Mg Tablet PO 20 mg QAM ABIODUN Administration Loperamide HCl 2 mg 11/30/24 04:13 12/01/24 09:31 Loperamide Hcl 2 Mg Capsule PO 2 mg PRN PRN Administration Diarrhea Metronidazole 500 mg 12/01/24 14:00 12/02/24 05:31 Metronidazole 500 Mg Tablet PO 500 mg Q8HR ABIODUN Administration Morphine Sulfate 2 mg 11/30/24 11:29 12/01/24 22:24 Morphine Sulfate (*Crx) 2 Mg/Ml Inj IV PUSH 2 mg Q4H PRN Administration Pain Rated 7-10 Multivitamins/Minerals 1 tablet 11/29/24 21:00 12/01/24 20:59 Multivits W-Fe,Min Chewable Tablet PO 1 tablet HS ABIODUN Administration Pantoprazole Sodium 40 mg 11/29/24 21:00 12/01/24 20:59 Pantoprazole 40 Mg Tablet PO 40 mg HS ABIODUN Administration Perflutren Lipid Microsphere 0 ml 12/01/24 08:53 Perflutren Lipid Microspheres 1.5 Ml Vial Diluted To 10 Ml Total Volume IV PUSH 12/04/24 08:54 ONCE PRN adequate visualization Protocol Radiology Results: ITS Impressions Chest CTA 11/29/24 07:11 IMPRESSION: 1. Extensive masslike consolidation right upper lobe with surrounding airspace consolidation, consistent with pneumonia. Recommend follow-up CT in 2-3 months following appropriate therapy to exclude underlying mass. 2: Small pericardial effusion. Trace right pleural effusion. Abdomen Ultrasound 11/30/24 09:38 IMPRESSION: 1: Unremarkable limited abdominal ultrasound. Chest X-Ray 12/01/24 06:17 Impression: 1: Right upper lobe airspace consolidation, compatible with pneumonia. Superimposed masslike density present. Cannot exclude underlying malignancy. Labs Labs: Laboratory Results - last 24 hr 12/01/24 12/02/24 22:44 05:50 WBC 15.7 H RBC 2.95 L Hgb 9.0 L Hct 28.4 L MCV 96.3 MCH 30.5 MCHC 31.7 L RDW 13.6 Plt Count 397 H MPV 8.9 Immature Gran % (Auto) 1.0 H Neut % (Auto) 80.9 H Lymph % (Auto) 8.2 L [place] % (Auto) 7.8 Eos % (Auto) 1.6 Baso % (Auto) 0.5 Lymph # (Auto) 1.29 [place] # (Auto) 1.2 H Eos # (Auto) 0.3 Baso # (Auto) 0.1 Abs Immat Gran (auto) 0.16 H Absolute Neuts (auto) 12.7 H Absolute Nucleated RBC 0.000 Nucleated RBC % 0.0 ESR > 140 H Sodium 130 L Potassium 3.1 L Chloride 100 Carbon Dioxide 25 Anion Gap 5 BUN 13 Creatinine 0.76 Estim Creat Clear Calc 66 Estimated GFR > 60 Glucose 115 H Calcium 8.5 Magnesium 1.7 Total Bilirubin 0.2 AST 42 H ALT 48 H Alkaline Phosphatase 115 Troponin I < 0.012 C-Reactive Protein 12.4 H Total Protein 6.1 L Albumin 2.6 L Procalcitonin 0.8 Quality VTE Prophylaxis VTE prophylaxis: pharmacologic ordered -Patient's previous records reviewed on admission -ER notes reviewed in detail on admission -discussed all findings and current treatment plan with patient/Family/POA -Consultations reviewed for recommendations -Patient's disposition for safe discharge discussed with machine adjuster leader case trim Dictation performed by [employer] direct speech recognition software, therefore order to delivery supervisor variants and typographical errors may occur. Hospitalist MIPS Advance Care Plan I have confirmed that the patient's Advanced Care Plan is present, code status is documented, or surrogate decision maker is listed in patient medical record.: Yes Medication Reconciliation I have utilized all available resources to obtain, update and review the patients current medications (includes all prescriptions, OTC, herbals, cannabis, and nutritional supplements).: Yes The patient is not eligible for med reconciliation; the patient is in a emergent medical situation where delaying treatment would jeopardize the patients health.: No
[2024-12-02] MEDS: MULTIVITS W-FE,MIN CHEWABLE TABLET 1 TABLET PO (20:05)
[2024-12-02] MEDS: PANTOPRAZOLE 40 MG TABLET PO (20:05)
[2024-12-03] VITALS (24 sets, daily range): BP systolic 106–120; BP diastolic 69–80; PULSE 70–101; RESP 16–20; TEMP 35.9–36.6; O2SAT 92–99
[2024-12-03] MEDS: HYDROcodone/acetaminophen (*CRX) 5-325 MG TABLET 1 TAB PO ×3 (00:12→17:10)
[2024-12-03] MEDS: IPRATROPIUM 0.5 MG/ALBUTEROL SULFATE 2.5 MG AMPUL.NEB 3 ML INHALATION ×6 (00:26→20:00)
[2024-12-03] MEDS: CEFEPIME 2 GM in SODIUM CHLORIDE 0.9% IV 50 ML 100 ML IVPB ×3 (05:34→21:05)
[2024-12-03 05:59] LABS: Hematocrit 28.8 % (37.0-47.0); Hemoglobin 8.8 g/dL (12.0-15.0); Immature Granulocyte Percent A 1.3 % (0-0.5); Lymphocytes Absolute Auto 1.36 K/mm3 (0.9-3.2); Mean Corpuscular HGB Conc 30.6 g/dl (32-36); Mean Corpuscular Hemoglobin 30.2 pg (26-34); Mean Corpuscular Volume 99.0 fl (80-100); Nucleated Red Blood Cells Absolute Auto 0.000 K/mm3 (0.0-0.012); Nucleated Red Blood Cells Perc 0.0 % (0.0-0.2); Platelet Count Result 404 k/mm3 (150-375); Red Blood Count 2.91 M/mm3 (4.2-5.4); White Blood Count 12.0 K/mm3 (4.5-10.0)
[2024-12-03 06:29] LABS: Alanine Aminotransferase 41 U/L (6-35); Albumin Level 2.6 g/dL (3.5-5.1); Alkaline Phosphatase 116 U/L (38-126); Anion Gap 5 mmol/L (4-12); Aspartate Amino Transferase 66 U/L (14-36); Bilirubin,Total 0.1 mg/dL (0.2-1.3); Blood Urea Nitrogen 15 mg/dL (7-17); Calcium 8.9 mg/dL (8.4-10.2); Carbon Dioxide 27 mmol/L (22-30); Chloride 101 mmol/L (98-107); Estimated CRCL calculation 59 ml/min; Estimated Glomerular Filt Rate > 60; Glucose 97 mg/dL (65-110); Magnesium 1.8 mg/dL (1.6-2.3); Potassium 3.6 mmol/L (3.4-5.0); Sodium 133 mmol/L (137-145); Total Protein 6.0 g/dL (6.3-8.2)
[2024-12-03] MEDS: guaiFENesin 12 HR 600 MG TABCR 1200 MG PO ×2 (08:23→21:05)
[2024-12-03] MEDS: ENOXAPARIN 40 MG/0.4 ML SYRINGE SUB-Q (08:23)
[2024-12-03] MEDS: LOPERAMIDE HCL 2 MG CAPSULE PO (08:23)
[2024-12-03] MEDS: ASPIRIN 81 MG ENTERIC TABLET PO (08:24)
[2024-12-03] MEDS: GABAPENTIN 100 MG CAPSULE PO ×2 (08:24→21:05)
[2024-12-03] MEDS: MORPHINE SULFATE (*CRX) 2 MG/ML INJ IV PUSH (10:43)
--- NOTE | 2024-12-03 13:22 | P.PNIM_ITS ---
Progress Note: A&P Assessment and Plan (1) Lobar pneumonia: Code(s): J18.1 - Lobar pneumonia, unspecified organism Status: Acute Assessment and Plan: CTA showing extensive masslike consolidation right upper lobe with surrounding airspace consolidation consistent with pneumonia. MRSA negative * See Above #1 * Bronchodilators. increased to Q 4 for patient's continued wheezing per pulmonology * Guaifenesin * incentive spirometry while awake. * sputum culture ordered * influenza/COVID/RSV negative * respiratory panel * Legionella, mycoplasma chlamydia pneumoniae pending * supplemental oxygen therapy to maintain oxygen 92% * Pulmonary consulted request if patient's wheezing does not improve with the increased bronchodilators to 1st attempt inhaled steroids and if still no improvement oral prednisone at 40 mg daily but would like to avoid systematic steroids able. (2) Transaminitis: Code(s): R74.01 - Elevation of levels of liver transaminase levels Status: Acute Assessment and Plan: Patient with elevated liver enzymes POA denies any abdominal tenderness * U/S no significant findings * Hepatitis panel with reactive Hep C AB/RNA pending * Trend (3) Acute hyponatremia: Code(s): E87.1 - Hypo-osmolality and hyponatremia Status: Acute Assessment and Plan: Patient hyponatremic 129 POA Likely secondary to dehydration improving fluids * IV fluids * Trend daily labs * Encourage oral intake (4) COPD (chronic obstructive pulmonary disease): Code(s): J44.9 - Chronic obstructive pulmonary disease, unspecified Status: Acute Assessment and Plan: Patient was previous smoker with history of COPD * Inhalers p.r.n. continued * DuoNebs scheduled * Supplemental oxygen wean as tolerated to maintain 92% (5) Hypertension: Code(s): I10 - Essential (primary) hypertension Status: Chronic Assessment and Plan: Patient with history of hypertension primary care physician recently discontinued patient's amlodipine and lisinopril * Monitor BP per unit protocol (6) Acute hypokalemia: Code(s): E87.6 - Hypokalemia Status: Resolved Assessment and Plan: Potassium 3.1 * replenished 40 meq * trend replenish as needed (7) Hypomagnesemia: Code(s): E83.42 - Hypomagnesemia Status: Acute Assessment and Plan: Mag 1.7 * trend and replenish as needed (8) Sepsis: Qualifiers: Sepsis acute organ dysfunction status: unspecified Sepsis type: sepsis due to unspecified organism Qualified Code(s): A41.9 - Sepsis, unspecified organism Code(s): A41.9 - Sepsis, unspecified organism Status: Resolved Assessment and Plan: Meeting at SIRS criteria likely secondary to underlying lobar pneumonia recent COVID infection testing positive a week prior but is not currently positive * Infectious disease consulted changed IV antibiotics to cefepime, Flagyl and azithromycin, azithromycin has been completed, ESR 125, WBC peaked at 31.1 downtrending 20 today * sputum culture pending * Two sets of blood cultures NGTD q48 hr * trend C-reactive proteins * procalcitonin level 2.1 down to 1.1 * Resolved Plan Code status: Full code per patient DVT prophylaxis: Lovenox Stress ulcer prophylaxis: NA PT/OT notes: Ambulatory with walker Disposition: Patient admitted to the medical unit for further evaluation and treatment pneumonia consult to Pulmonary and Infectious Disease continue with current treatment plan patient was ambulatory with walker however may need evaluation by PT/OT prior to discharge for any further discharge planning needs. Time Spent With Patient Time with patient: 15 - 25 minutes Subjective Date/time seen: 12/03/24 13:22 Interval history: Patient is a 69-year-old female admitted for acute respiratory failure with hypoxia secondary to sepsis with pneumonia. Patient admitted to the medical unit with consult to pulmonology and Infectious Disease assisting with antibiotic therapy. 12/03/2024: Patient progressing well with treatment state's her breathing has greatly improved and she was able to tolerate walking to the bathroom without oxygen. Still have a productive cough but has also improved with minimal sputum production. Review of Systems Review of Systems: All systems reviewed & are unremarkable except as noted in HPI and below Exam Const: General: comfortable and no acute distress Other: Pleasant female Eyes: General: appearance normal, both eyes and all related structures Sclera: sclerae normal Pupils: Equal, round and reactive pupils present EOM: EOMs intact bilaterally Neck: Neck: supple and no JVD Resp: Auscultation: wheezes (scant) scattered wheezes and diminished lung sounds on the right in the upper lung gauthier Cardio: Rate: regular rate Rhythm: regular rhythm GI: Auscultation: normal bowel sounds Skin: General skin exam: normal color Wounds: no wounds Neuro: General: gait normal Cranial nerves: Yes Equal, round and reactive pupils present Speech: normal speech Motor exam (neuro): 5/5 motor strength present throughout Sensory Exam: normal sensation Extrem: General: normal to inspection Psych: Mental Status: mental status grossly normal Affect: normal affect Objective Data Vital Signs Vital Signs: Vital Signs - 24 hr 12/02/24 14:00 12/02/24 16:00 12/02/24 16:10 Temperature 97.3 F L Pulse Rate 91 84 87 Respiratory Rate 22 H 18 Blood Pressure 104/67 Pulse Oximetry 97 Oxygen Delivery Oxygen Flow Rate Fraction of Inspired Oxygen 12/02/24 16:19 12/02/24 16:19 12/02/24 19:26 Temperature Pulse Rate 87 82 Respiratory Rate 18 20 Blood Pressure Pulse Oximetry 95 Oxygen Delivery Nasal Cannula Oxygen Flow Rate 2 Fraction of Inspired Oxygen 12/02/24 19:30 12/02/24 19:41 12/02/24 19:45 Temperature 96.7 F L Pulse Rate 86 92 Respiratory Rate 20 17 Blood Pressure 130/88 Pulse Oximetry 94 98 Oxygen Delivery Nasal Cannula Oxygen Flow Rate 2 Fraction of Inspired Oxygen 12/02/24 20:00 12/02/24 20:10 12/03/24 00:00 Temperature Pulse Rate 90 82 Respiratory Rate Blood Pressure Pulse Oximetry 98 Oxygen Delivery Nasal Cannula Oxygen Flow Rate 2 Fraction of Inspired Oxygen 21 12/03/24 00:26 12/03/24 00:33 12/03/24 04:00 Temperature Pulse Rate 82 85 70 Respiratory Rate 16 16 Blood Pressure Pulse Oximetry Oxygen Delivery Oxygen Flow Rate Fraction of Inspired Oxygen 12/03/24 04:35 12/03/24 04:42 12/03/24 04:48 Temperature 97.0 F L Pulse Rate 83 80 82 Respiratory Rate 19 16 16 Blood Pressure 116/80 Pulse Oximetry 98 Oxygen Delivery Oxygen Flow Rate Fraction of Inspired Oxygen 12/03/24 07:58 12/03/24 07:58 12/03/24 08:00 Temperature Pulse Rate 101 H Respiratory Rate 16 Blood Pressure Pulse Oximetry 99 94 Oxygen Delivery Nasal Cannula Room Air Oxygen Flow Rate 2 Fraction of Inspired Oxygen 12/03/24 08:00 12/03/24 08:10 12/03/24 09:07 Temperature Pulse Rate 99 91 Respiratory Rate 16 Blood Pressure Pulse Oximetry 96 Oxygen Delivery Room Air Oxygen Flow Rate Fraction of Inspired Oxygen 12/03/24 11:29 12/03/24 11:29 12/03/24 11:40 Temperature Pulse Rate 85 92 Respiratory Rate 16 16 Blood Pressure Pulse Oximetry 97 Oxygen Delivery Nasal Cannula Oxygen Flow Rate 2 Fraction of Inspired Oxygen 12/03/24 12:00 Temperature Pulse Rate 96 Respiratory Rate Blood Pressure Pulse Oximetry Oxygen Delivery Oxygen Flow Rate Fraction of Inspired Oxygen Intake/Output Intake/Output: Intake & Output 11/30/24 12/01/24 12/02/24 12/03/24 23:59 23:59 23:59 23:59 Intake Total 1220 1900 1900 790 Output Total 9 Balance 1220 1900 1891 790 Meds/Results Medications: Active Medications Generic Name Dose Route Start Last Admin Trade Name Freq PRN Reason Stop Dose Admin Acetaminophen 650 mg 11/29/24 04:32 12/02/24 20:05 Acetaminophen 325 Mg Tablet PO 650 mg Q6H PRN Administration Pain 1-3 or Fever Hydrocodone Bitart/Acetaminophen 1 tab 11/29/24 04:31 12/03/24 08:23 Hydrocodone/Acetaminophen (*Crx) 5-325 Mg Tablet PO 1 tab Q8H PRN Administration Pain 4-10 Albuterol 2 puff 11/29/24 04:31 11/29/24 09:01 Albuterol Sulfate (*Sp) Aerosol 1 Puff INHALATION 2 puff Q6HRT PRN Administration Shortness Of Breath Albuterol/Ipratropium 3 ml 12/01/24 12:00 12/03/24 11:28 Ipratropium 0.5 Mg/Albuterol Sulfate 2.5 Mg Ampul.Neb 3 Ml INHALATION 3 ml Q4HRT ABIODUN Administration Alprazolam 0.5 mg 11/29/24 04:31 12/02/24 08:29 Alprazolam (*Crx) 0.5 Mg Tablet PO 0.5 mg BID PRN Administration Anxiety Amlodipine Besylate 5 mg 11/29/24 21:50 12/03/24 08:24 Amlodipine Besylate 5 Mg Tablet PO 5 mg DAILY ABIODUN Administration Aspirin 81 mg 11/29/24 09:00 12/03/24 08:24 Aspirin 81 Mg Enteric Tablet PO 81 mg DAILY ABIODUN Administration Enoxaparin Sodium 40 mg 11/29/24 09:00 12/03/24 08:23 Enoxaparin 40 Mg/0.4 Ml Syringe SUB-Q 40 mg DAILY ABIODUN Administration Gabapentin 100 mg 11/29/24 09:00 12/03/24 08:24 Gabapentin 100 Mg Capsule PO 100 mg Q12HR ABIODUN Administration Guaifenesin 1,200 mg 11/29/24 21:00 12/03/24 08:23 Guaifenesin 12 Hr 600 Mg Tabcr PO 1,200 mg Q12HR ABIODUN Administration Cefepime HCl 2 gm/ Sodium 50 mls @ 100 mls/hr 11/29/24 14:00 12/03/24 05:34 Chloride IVPB 100 mls/hr Q8HR ABIODUN Administration Lisinopril 20 mg 11/29/24 21:50 12/03/24 08:24 Lisinopril 20 Mg Tablet PO 20 mg QAM ABIODUN Administration Loperamide HCl 2 mg 11/30/24 04:13 12/03/24 08:23 Loperamide Hcl 2 Mg Capsule PO 2 mg PRN PRN Administration Diarrhea Metronidazole 500 mg 12/01/24 14:00 12/03/24 05:35 Metronidazole 500 Mg Tablet PO 500 mg Q8HR ABIODUN Administration Morphine Sulfate 2 mg 11/30/24 11:29 12/03/24 10:43 Morphine Sulfate (*Crx) 2 Mg/Ml Inj IV PUSH 2 mg Q4H PRN Administration Pain Rated 7-10 Multivitamins/Minerals 1 tablet 11/29/24 21:00 12/02/24 20:05 Multivits W-Fe,Min Chewable Tablet PO 1 tablet HS ABIODUN Administration Pantoprazole Sodium 40 mg 11/29/24 21:00 12/02/24 20:05 Pantoprazole 40 Mg Tablet PO 40 mg HS ABIODUN Administration Perflutren Lipid Microsphere 0 ml 12/01/24 08:53 Perflutren Lipid Microspheres 1.5 Ml Vial Diluted To 10 Ml Total Volume IV PUSH 12/04/24 08:54 ONCE PRN adequate visualization Protocol Radiology Results: ITS Impressions Chest CTA 11/29/24 07:11 IMPRESSION: 1. Extensive masslike consolidation right upper lobe with surrounding airspace consolidation, consistent with pneumonia. Recommend follow-up CT in 2-3 months following appropriate therapy to exclude underlying mass. 2: Small pericardial effusion. Trace right pleural effusion. Abdomen Ultrasound 11/30/24 09:38 IMPRESSION: 1: Unremarkable limited abdominal ultrasound. Chest X-Ray 12/01/24 06:17 Impression: 1: Right upper lobe airspace consolidation, compatible with pneumonia. Superimposed masslike density present. Cannot exclude underlying malignancy. Labs Labs: Laboratory Results - last 24 hr 12/03/24 04:46 WBC 12.0 H RBC 2.91 L Hgb 8.8 L Hct 28.8 L MCV 99.0 MCH 30.2 MCHC 30.6 L RDW 13.7 Plt Count 404 H MPV 9.3 Immature Gran % (Auto) 1.3 H Neut % (Auto) 76.8 H Lymph % (Auto) 11.3 L Pender % (Auto) 7.4 Eos % (Auto) 2.6 Baso % (Auto) 0.6 Lymph # (Auto) 1.36 Pender # (Auto) 0.9 H Eos # (Auto) 0.3 Baso # (Auto) 0.1 Abs Immat Gran (auto) 0.16 H Absolute Neuts (auto) 9.2 H Absolute Nucleated RBC 0.000 Nucleated RBC % 0.0 Sodium 133 L Potassium 3.6 Chloride 101 Carbon Dioxide 27 Anion Gap 5 BUN 15 Creatinine 0.86 Estim Creat Clear Calc 59 Estimated GFR > 60 Glucose 97 Calcium 8.9 Magnesium 1.8 Total Bilirubin 0.1 L AST 66 H ALT 41 H Alkaline Phosphatase 116 Total Protein 6.0 L Albumin 2.6 L Quality VTE Prophylaxis VTE prophylaxis: pharmacologic ordered -Patient's previous records reviewed on admission -ER notes reviewed in detail on admission -discussed all findings and current treatment plan with patient/Family/POA -Consultations reviewed for recommendations -Patient's disposition for safe discharge discussed with lead case manager Dictation performed by [employer] direct speech recognition software, therefore fire protection engineer variants and typographical errors may occur. Hospitalist [facility] Advance Care Plan I have confirmed that the patient's Advanced Care Plan is present, code status is documented, or surrogate decision maker is listed in patient medical record.: Yes Medication Reconciliation I have utilized all available resources to obtain, update and review the patients current medications (includes all prescriptions, OTC, herbals, cannabis, and nutritional supplements).: Yes The patient is not eligible for med reconciliation; the patient is in a emergent medical situation where delaying treatment would jeopardize the patients health.: No
--- NOTE | 2024-12-03 14:35 | PCOTNOTE ---
Attempted to see pt for OT treatment this afternoon. Pt declined to participate in session due to increase fatigue on this date. Per pt she has been having diarrhea due to new medication and has not rested all day. Pt was offered in bed therapeutic tasks, however, pt continued to decline. Will continue per poc duration/frequency.
[2024-12-03] MEDS: ACETAMINOPHEN 325 MG TABLET 650 MG PO (15:31)
[2024-12-03] MEDS: MULTIVITS W-FE,MIN CHEWABLE TABLET 1 TABLET PO (21:05)
[2024-12-03] MEDS: PANTOPRAZOLE 40 MG TABLET PO (21:05)
--- NOTE | 2024-12-03 23:50 | PCRCNOTE ---
Patient is having an apnea link test: 0200 and 0400 treatments will be omitted for testing
[2024-12-04] VITALS (18 sets, daily range): BP systolic 116–128; BP diastolic 85–90; PULSE 85–104; RESP 16–19; TEMP 36.7–37.2; O2SAT 89–98
[2024-12-04] MEDS: LOPERAMIDE HCL 2 MG CAPSULE PO ×2 (04:42→14:01)
[2024-12-04] MEDS: HYDROcodone/acetaminophen (*CRX) 5-325 MG TABLET 1 TAB PO ×2 (04:50→14:05)
[2024-12-04] MEDS: CEFEPIME 2 GM in SODIUM CHLORIDE 0.9% IV 50 ML 100 ML IVPB ×3 (05:41→20:51)
[2024-12-04 05:57] LABS: Hematocrit 29.8 % (37.0-47.0); Hemoglobin 9.3 g/dL (12.0-15.0); Immature Granulocyte Percent A 1.3 % (0-0.5); Lymphocytes Absolute Auto 1.00 K/mm3 (0.9-3.2); Mean Corpuscular HGB Conc 31.2 g/dl (32-36); Mean Corpuscular Hemoglobin 30.3 pg (26-34); Mean Corpuscular Volume 97.1 fl (80-100); Nucleated Red Blood Cells Absolute Auto 0.000 K/mm3 (0.0-0.012); Nucleated Red Blood Cells Perc 0.0 % (0.0-0.2); Platelet Count Result 431 k/mm3 (150-375); Red Blood Count 3.07 M/mm3 (4.2-5.4); White Blood Count 14.0 K/mm3 (4.5-10.0)
[2024-12-04 06:40] LABS: Alanine Aminotransferase 42 U/L (6-35); Albumin Level 2.7 g/dL (3.5-5.1); Alkaline Phosphatase 112 U/L (38-126); Anion Gap 4 mmol/L (4-12); Aspartate Amino Transferase 46 U/L (14-36); Bilirubin,Total 0.2 mg/dL (0.2-1.3); Blood Urea Nitrogen 12 mg/dL (7-17); Calcium 9.1 mg/dL (8.4-10.2); Carbon Dioxide 30 mmol/L (22-30); Chloride 98 mmol/L (98-107); Estimated CRCL calculation 68 ml/min; Estimated Glomerular Filt Rate > 60; Glucose 108 mg/dL (65-110); Magnesium 1.7 mg/dL (1.6-2.3); Potassium 3.5 mmol/L (3.4-5.0); Sodium 132 mmol/L (137-145); Total Protein 6.5 g/dL (6.3-8.2)
[2024-12-04] MEDS: IPRATROPIUM 0.5 MG/ALBUTEROL SULFATE 2.5 MG AMPUL.NEB 3 ML INHALATION ×4 (07:55→19:52)
[2024-12-04 08:44] LABS: CRP 5.8 mg/dL (<1.0)
[2024-12-04 08:55] LABS: Procalcitonin 0.5 ng/mL
[2024-12-04 09:00] LABS: NT Pro B Type Natriuretic Pept 468 pg/mL (19.9-100)
--- NOTE | 2024-12-04 09:30 | PM.PNPUL ---
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 COVID, influenza, RSV RT PCR assay negative, MRSA nasal swab negative. 11/29/24: Plan: Continue cefepime, azithromycin and Flagyl. Blood and sputum cultures pending. Respiratory pathogen panel, urine for Streptococcus, urine for Legionella, chlamydia PCR, mycoplasma PCR all pending. Goal saturation 90-94%. Currently she is on room air. Infectious disease consultation following. 11/30/24: The patient tells me she is feeling better. States she has 20% back to her baseline. Her cough is unchanged. She is producing calderon phlegm with no blood. Her dyspnea on exertion is worse than when she came to the hospital. Patient had a fever last night at 38.3. Currently she is on room air with saturations 94%. White blood cell count improved to 21.2, creatinine 0.79. CRP is minimally improved from 26.1 on 11/29/2024 to 23.7 today. Procalcitonin is improved from 2.1 yesterday to 1.5 today. yesterday she was 1.5 L positive, cumulative she is 1.9 L positive since admission. Plan: patient had a fever last night. Clinically the patient has improved, oxygenation has improved, leukocytosis has improved, minimal improvement in CRP. Continue cefepime ( started 11/28), azithromycin ( started 11/28) and Flagyl ( started 11/29). I will check a chest x-ray tomorrow morning. 12/01/24: The patient tells me she continues to improve. She states she is breathing 50% back to her baseline. Her cough is normal, she still has right-sided chest pain. She has developed diarrhea. Her last fever was on 11/29/2024 at 9:02 p.m. and she has been afebrile since then. When I enter the room she was on 2 L nasal cannula saturations 96%, I decreased her to 1 L and her saturation was 95%. Her white blood cell count is 20.6, creatinine was 0.83. Her CRP has decreased from 20/3 0.7 yesterday to 15.9 today. Her procalcitonin is decreased from 1.5 yesterday to 1.1 today. Her BNP remains essentially unchanged from 1280 on 11/29/2024 to 1320 today. Her weight today is 79.6. Her chest x-ray today shows continued right upper lobe consolidative mass with no change from 11/28/2024. Plan: patient continues to improve. Patient afebrile, and white blood cell count, CRP, procalcitonin All improving and chest x-ray stable on cefepime ( started 11/28), azithromycin ( started 11/28) and Flagyl ( started 11/29). infectious Disease following. Pulmonary inpatient consultative services will resume on 12/04/2024, call with questions. 12/04/24: Tells me she continues to improve. Overall states she has 50% back to her normal. She has no rest shortness of breath and no dyspnea on exertion walking to the bathroom. She has a persistent cough increased from her baseline with yellow phlegm and no hemoptysis. When I enter the room she was on 0.5 L nasal cannula saturations 94% I decreased her to room air and her saturations were 93%. Her white blood cell count is 14.0, creatinine is 0.73. Her CRP has improved from 12.4 on 12/02/2024 to 5.8 today. Her procalcitonin has improved from 0.8 on 12/02/2024 to 0.5 today. Her BNP has improved from 1320 on 12/01/24 to 468 today. patient had an overnight oximetry on 1 L with recording duration of 9 hours and 36 minutes. Average saturation 93%. Low saturation 81%. Time with saturation less than or equal to 88% was 39 minutes. Oxygen desaturation index 6.8. Plan: patient continues to slowly improve. Continue cefepime started 11/28/2024 and continue Flagyl started 11/29/2024, and she has completed course of azithromycin. She is afebrile, leukocytosis persists, her CRP, and procalcitonin both continue to improve. Respiratory pathogen panel negative, urine Legionella negative, urine pneumococcal antigen negative, sputum normal jackie, blood cultures negative x2. I will repeat a chest x-ray today. Discussed with Terese Mac (2) COPD (chronic obstructive pulmonary disease): Code(s): J44.9 - Chronic obstructive pulmonary disease, unspecified Status: Acute Assessment and Plan: GOLD grade 2 group B COPD Patient with 40 pack year tobacco use, quit 2016, currently smoking 2-3 marijuana cigarettes a day, PFTs on 07/07/2024 with moderately severe obstructive abnormality, FEV1 1.44 L, 57% predicted, ratio 53% predicted. No bronchodilator response, normal lung volumes moderately decreased DLCO that remains mildly decreased when adjusted for alveolar volume. CT scan of the chest on 04/17/2024 as well as 11/29/2024 demonstrates moderate to severe apical predominant centrilobular emphysema. She is on no home oxygen. 11/28/2021 white blood cell count 28.9, eosinophils 0.2%=58/uL. At baseline she can walk a quarter of a mi and then stops for respiratory insufficiency, she has shortness of breath with her activities of daily living. She is maintained on trelegy 100- 62.5-25 at 1 puff q.day 11/29/24: Currently the patient is not wheezing and I do not believe she is having a COPD exacerbation. Plan: patient with the pneumonia and I will discontinue inhaled corticosteroids. Place the patient on DuoNebs q.6 hours and Mucomyst nebulizers q.6 hours. Will add guaifenesin to 1200 mg p.o. b.i.d. I will check an ABG to exclude hypercarbic respiratory failure. Room air ABG later in the day was 7.42/33/65 11/30/24: I do not believe the patient is having a COPD exacerbation. ABG demonstrates no hypercarbic respiratory failure. Currently she is on room air. Plan: Continue DuoNebs and Mucomyst nebulizers q.6 hours. continue guaifenesin 1200 mg p.o. b.i.d.. I will add a Cornet flutter valve. Goal saturation 90-94%. 12/01/2024: Patient states her breathing continues to improve. There were a few scant expiratory wheezes on exam today. Plan: I will increase her DuoNebs to q.4 hours. I will discontinue the Mucomyst nebulizers as these can cause bronchospasm. She is producing phlegm with guaifenesin 1200 p.o. b.i.d. and the Cornet flutter valve. Would like to avoid inhaled and systemic steroids given her pneumonia, however if her wheezing worsens she may required inhaled corticosteroids and/or systemic steroids. 12/04/24: No wheezes today. Plan: Continue DuoNebs q.4 hours, Guaifenesin 1200 p.o. b.i.d. and Cornet flutter valve. No need for inhaled or systemic steroids at this time. Subjective Date/time seen: 12/04/24 09:30 Interval history: 11/29/2024: This is a new pulmonary consult for right upper lobe pneumonia. 69-year-old with a history of COPD, hypertension, CKD, osteoarthritis, hydrocephalus with FISHER LAMPARA NET shunt as a child. Regarding her COPD. Patient smoked cigarettes from age [age] a 1 pack per day for total of 40 pack years. Patient smokes marijuana 2-3 cigarettes a day for the last 40 years. Denies any illicit drug use. She was exposed to secondhand smoke from both of her parents and from her until 2006. 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 To 3 weeks ago the patient could walk a quarter of a mi then have to stop for dyspnea on exertion. Overall she can walk 2 miles in 1 hour. She does have some shortness of breath with her activities of daily living. At baseline her room air saturations are 91-92%. 04/17/2024: Patient presented to the emergency department at [facility] with 2 weeks nausea, vomiting, diarrhea right-sided chest pain, pleuritic in nature, room air saturations 96%., Leukocytosis 17.9, and CT angiogram of the chest that showed moderate to severe apical predominant panlobular emphysema, large masslike consolidation right middle lobe. patient was discharged on azithromycin. No infiltrate or mass in the right upper lobe. Discharged from the emergency department. 05/19/2024: CT scan of the chest with decreased size of the right middle lobe infiltrate and mass now with a cavity. no infiltrate or mass in the right upper lobe. Patient was previously seen in the Pulmonary Clinic on 06/27/2024 for COPD and decreasing right middle lobe cavity. Patient smoked tobacco Quit in 2017and marijuana, does not wheeze, no weight loss. Using trilogy and rescue albuterol 1 to 2 times a day. Daily cough with clear secretions sometimes yellow. Last pneumonia was 2017. plan: PET scan, PFTs, 6 minute walk, sputum for bacterial fungal and AFB X 3. 07/06/2024: CT-PET: Continue decreased size of the right middle lobe infiltrate and cavity now with no cavity and scarring. Small nodule inferior right upper lobe with an SUV of 1.7, patchy airspace opacities in the lower lobes with maximal SUV 3.7 on the right and 2.4 on the left. lingular posterior consolidation with an SUV of 5.6. He these were new since 05/19/2024 and consistent with pneumonia. 07/12/2024: Dr. Haider called her, reviewed all test results 07/12/2024. 1) PET Scan 07/06/24; IMPRESSION: Mild uptake associated with multiple new regions of consolidation and patchy airspace opacities in both lungs which given the appearance, distribution and rapid progression most consistent with evolving pneumonia. Small region of discoid atelectasis without abnormal FDG uptake at the site of the prior large masslike opacity in the right middle lobe consistent with resolving pneumonia. No other FDG avid lesions suspicious for primary malignancy or metastatic disease. PET is consistent with pneumonia, not cancer. 2) Sputum; sputum on 06/29/2024 Normal jackie, AFB smear negative, AFB culture negative at 6 weeks. No fungal elements seen. Scant growth of Tanja parapsilosis sp. Isolate #2: dematiaceous mold isolated. Sputum 06/30/2024: Growth of normal jackie. AFB smear negative, AFB culture negative at 6 weeks. No fungal elements seen. Growth of an unidentified mold not resembling any of the known human pathogens on the fungal culture. Sputum 07/01/2024: Growth of normal jackie, AFB smear negative, AFB cultures negative at 6 weeks. No fungal elements seen, no fungal growth at 4 weeks. 3) 6 minute walk showed that she completed is 273 m, 900 ft, did not desaturate. 4) PFT show moderate obstructive ventilatory impairment without response to bronchodilator, and she is on Trelegy 100, did not appear on her med list on the first office visit. She is on treatment, CAT score is low, nothing else needed right now. 5) She found out that her primary care doctor does not have rheumatoid arthritis as a diagnosis. During her initial visit, she told me that she had RA but now we know, she does not. This was important because RA can cause cavitary lung lesions. 11/28/2024: Patient presented to the emergency department with shortness of breath and dyspnea on exertion. on 11/19/2024 after being exposed to her son in law and daughter who were COVID positive she tested COVID positive. She had a fever, cough, increased phlegm production that was calderon with occasional hemoptysis. Her symptoms progressed and on 11/28 she went to a PCP and had an elevated white blood cell count was told to come to the emergency department. She was afebrile. Blood pressure 111/58, heart rate 114, respirations 17, room air saturations 95% and then placed on 2 L with saturations 96%. She had decreased breath sounds in the right upper lobe. White blood cell count 28.9 with eosinophils 0.2%. Creatinine 0.99, COVID influenza and RSV RT PCR assay negative. Chest x-ray with dense consolidation right upper lobe. CT angiogram of the chest compared to PET scan CT on 07/06/2024 showed no change in her apical predominant panlobular emphysema, new dense right upper lobe consolidative infiltrate, unchanged right middle lobe scarring -atelectasis, resolved bilateral lower lobe infiltrates, resolved lingular infiltrates. Patient was given 1 L IV fluids. 11/29/2024: infectious disease consulted, antibiotics changed to cefepime, Flagyl and azithromycin. currently the patient tells me she feels the same as yesterday. When I enter the room she was on 2 L nasal cannula saturation 97%. I decreased her to room air and her saturations were 94%. White blood cell count 31.0, creatinine 0.82, CRP 26.1, procalcitonin 2.1, BNP 1280, MRSA nasal swab PCR negative. room air ABG later in the day was 7 0.42/33/65 11/30/24: The patient tells me she is feeling better. States she has 20% back to her baseline. Her cough is unchanged. She is producing calderon phlegm with no blood. Her dyspnea on exertion is worse than when she came to the hospital. Patient had a fever last night at 38.3. Currently she is on room air with saturations 94%. White blood cell count improved to 21.2, creatinine 0.79. CRP is minimally improved from 26.1 on 11/29/2024 to 23.7 today. Procalcitonin is improved from 2.1 yesterday to 1.5 today. yesterday she was 1.5 L positive, cumulative she is 1.9 L positive since admission. 12/01/24: The patient tells me she continues to improve. She states she is breathing 50% back to her baseline. Her cough is normal, she still has right-sided chest pain. She has developed diarrhea. Her last fever was on 11/29/2024 at 9:02 p.m. and she has been afebrile since then. When I enter the room she was on 2 L nasal cannula saturations 96%, I decreased her to 1 L and her saturation was 95%. Her white blood cell count is 20.6, creatinine was 0.83. Her CRP has decreased from 20/3 0.7 yesterday to 15.9 today. Her procalcitonin is decreased from 1.5 yesterday to 1.1 today. Her BNP remains essentially unchanged from 1280 on 11/29/2024 to 1320 today. Her weight today is 79.6. Her chest x-ray today shows continued right upper lobe consolidative mass with no change from 11/28/2024. 12/04/24: Tells me she continues to improve. Overall states she has 50% back to her normal. She has no rest shortness of breath and no dyspnea on exertion walking to the bathroom. She has a persistent cough increased from her baseline with yellow phlegm and no hemoptysis. When I enter the room she was on 0.5 L nasal cannula saturations 94% I decreased her to room air and her saturations were 93%. Her white blood cell count is 14.0, creatinine is 0.73. Her CRP has improved from 12.4 on 12/02/2024 to 5.8 today. Her procalcitonin has improved from 0.8 on 12/02/2024 to 0.5 today. Her BNP has improved from 1320 on 12/01/24 to 468 today. patient had an overnight oximetry on 1 L with recording duration of 9 hours and 36 minutes. Average saturation 93%. Low saturation 81%. Time with saturation less than or equal to 88% was 39 minutes. Oxygen desaturation index 6.8. DATA: 12/03/24: overnight oximetry on 1 L with recording duration of 9 hours and 36 minutes. Average saturation 93%. Low saturation 81%. Time with saturation less than or equal to 88% was 39 minutes. Oxygen desaturation index 6.8. 11/29/2024; EXAMINATION: CTA chest PE protocol INDICATION: Shortness of breath and hypoxia COMPARISON: CT dated 05/19/2024. FINDINGS: There is extensive masslike consolidation right upper lobe with surrounding pneumonia. There is atherosclerosis of the aorta without evidence for aneurysm or dissection. Small pericardial effusion. Study is technically adequate without evidence for pulmonary embolism. Trace right pleural effusion. Mild thoracic spondylosis with accentuated kyphosis. IMPRESSION: 1. Extensive masslike consolidation right upper lobe with surrounding airspace consolidation, consistent with pneumonia. Recommend follow-up CT in 2-3 months following appropriate therapy to exclude underlying mass. 2: Small pericardial effusion. Trace right pleural effusion. 07/06/2024: EXAMINATION: PET skull to mid thigh INDICATION: Lung nodule COMPARISON: Chest CT dated 05/19/2024 and 04/17/2024 FINDINGS: Head/neck: There is symmetric increased activity in the oral cavity, palatine and lingual tonsils, parotid glands, submandibular glands, laryngeal muscles and ocular muscles without CT correlate, likely physiologic. There is linear increased FDG uptake extending anteroposteriorly along the right C3-C4 facet joint with corresponding severe osteoarthritis on CT and likely degenerative in etiology. No pathologically enlarged cervical lymphadenopathy or suspicious foci of increased FDG uptake in the visualized head or neck. Chest: Moderate emphysema. Continued evolution in patchy bilateral lung disease with near complete resolution of the previously large masslike region of consolidation seen on study from 04/17/2024 which developed some central cavitation on the more recent study from 05/19/2024 which is continued to significantly decrease in the size now with horizontal bandlike configuration consistent with residual atelectasis/scarring related to prior pneumonia. There is mild FDG uptake associated with a new small nodular opacity in the inferior right upper lobe with maximal SUV of 1.7, new patchy airspace opacities in the bilateral lower lobes with maximal SUV of 3.7 on the right and 2.4 on the left and a larger region of consolidation at the posterior lingula with maximal SUV of 5.6. These are all new since the prior study consistent with pneumonia. No pleural effusion. Heart size is normal. No pericardial effusion. Thoracic aorta is normal in caliber. No pathologically enlarged or abnormally FDG avid thoracic lymphadenopathy. Small focus of increased activity at the medial aspect of the right supraspinatus muscle without radiologic correlate which is likely physiologic. Small focus of increased uptake along the basilic vein at the distal right upper arm which is a small focus of uptake along the brachial vein likely representing minimal extravasation at the site of injection and adjacent mild lymphatic uptake activity. The mild uptake along the left triceps muscle without radiologic correlate also likely physiologic. Abdomen/pelvis/proximal thighs: Physiologic renal accumulation and excretion of FDG activity in the kidneys, bladder and along portions of ureters. Normal degree and heterogenous pattern of increased uptake throughout the liver without radiologic correlate or dominant FDG avid lesion. The gallbladder, pancreas, spleen and bilateral adrenal glands are normal. Mild uptake scattered throughout the bowels without radiologic correlate, also likely physiologic. No other abnormal foci of increased FDG uptake or pathologically enlarged lymphadenopathy in the abdomen, pelvis or proximal thighs. Musculoskeletal: Severe lumbar spondylosis. No other suspicious lytic, blastic or abnormally FDG avid bone lesions to suggest osseous metastatic disease. IMPRESSION: 1. Mild uptake associated with multiple new regions of consolidation and patchy airspace opacities in both lungs which given the appearance, distribution and rapid progression most consistent with evolving pneumonia. Small region of discoid atelectasis without abnormal FDG uptake at the site of the prior large masslike opacity in the right middle lobe consistent with resolving pneumonia. 2. No other FDG avid lesions suspicious for primary malignancy or metastatic disease. 05/19/24: Clinical indication:Right lung mass COMPARISON:04/17/2024 FINDINGS: LUNG:Interval decrease in size of the mass within the right middle lobe, now demonstrating cavitation for which a possible fungal etiology is suspected. The remainder of the lungs are clear. MEDIASTINUM:No pathologically enlarged or morphologically suspicious lymph nodes within the mediastinum. HEART:The heart is of normal size, without pericardial effusion. SOFT TISSUES OF THE CHEST: Unremarkable BONES OF THE CHEST: No lytic or blastic lesions identified IMPRESSION: Interval decrease in size of the abnormality seen within the right middle lobe on previous study, now demonstrating a central cavity, possibly fungal in origin. 04/17/2024: EXAMINATION: CTA chest PE protocol INDICATION: Shortness of breath with elevated d-dimer. Pulmonary embolus suspected clinically COMPARISON: Reference is made to CT examination of the chest dated 05/20/2023. Reference is also made to plain film evaluation of the chest, performed the same day. FINDINGS: No filling defect is identified within the main or proximal pulmonary arteries. The main pulmonary artery is enlarged, suggesting pulmonary hypertension. Intrapulmonary lymph node measuring 6 mm in short axis dimension is redemonstrated within the right middle lobe, increased in size since 05/20/2023. Interval development of a focus of soft tissue attenuation between the right middle and right lower lobes. Blood vessels course through this abnormality, rather than traversing around the abnormality. Severe panlobular emphysematous disease is also noted, as is a small right-sided pleural effusion. The thoracic aorta is nonaneurysmal. No dissection is appreciated Within the upper abdomen: The bilateral adrenal glands are unremarkable. Gallbladder is decompressed, and otherwise unremarkable. IMPRESSION: Panlobular emphysematous disease with interval development of a mass of soft tissue attenuation within the right hemithorax, with surrounding groundglass opacification. The rapidity of growth along with the leukocytosis suggest infectious etiology, rather than malignancy. Follow-up to resolution is recommended, as a malignancy may have a similar appearance No pulmonary embolus. No aortic dissection. 05/21/2023: Clinical Indication: Sepsis CT Scan of the Chest, Abdomen, and Pelvis without Contrast: Findings: There is no evidence of any significant mediastinal, hilar or axillary lymphadenopathy. The mediastinal soft tissues appear normal. Small to moderate pericardial effusion. There is no evidence of pleural or pericardial effusion. The lungs are clear. No pulmonary nodules or infiltrates are noted. Moderate emphysema present. The liver, spleen, pancreas, gallbladder, adrenals and kidneys are within normal limits. There are atherosclerotic calcifications of the aorta. No lymphadenopathy. No bowel obstruction or bowel wall thickening. There is no evidence to suggest acute appendicitis. Urinary bladder is unremarkable. No pelvic mass seen. No ascites. Impression: Moderate emphysema. [id number] pericardial effusion. No significant abnormality evident in the abdomen or pelvis. Review of Systems Constitutional: Constitutional: Reports no additional constitutional complaints Eyes: Eyes: Reports no additional eye complaints ENT: Reports system reviewed and no additional complaints, except as documented Cardiovascular: Cardiovascular: Reports no additional cardiovascular complaints Respiratory: Respiratory: Reports no additional respiratory complaints Gastrointestinal: Gastrointestinal: Reports no additional gastrointestinal complaints Musculoskeletal: Musculoskeletal: Reports no additional musculoskeletal complaints Neurologic: Reports system reviewed and no additional complaints, except as documented Psychiatric: Psychiatric: Reports no additional psychiatric complaints Endocrine: Endocrine: Reports no additional endocrine complaints Hematologic/Lymphatic: Hematologic/Lymphatic: Reports no additional hematologic/lymphatic complaints Allergic/Immunologic: Allergic/Immunologic: Reports no additional allergic/immunologic complaints Exam Const: General: cooperative, comfortable and uncomfortable Orientation/consciousness: oriented to person, oriented to place and oriented to time Other: no respiratory distress. HENMT: Head: normal to inspection Ears: hearing grossly normal bilaterally Eyes: General: appearance normal, both eyes and all related structures Neck: Neck: normal visual inspection Chest: Chest palpation & inspection: normal inspection of the chest Resp: Effort & Inspection: normal respiratory effort and able to speak in complete sentences Auscultation: no crackles, no rales, no rhonchi, no wheezes and diminished lung sounds Other: No wheezes today Cardio: Jugular venous distension: no JVD GI: Inspection: normal to inspection Skin: General skin exam: normal color Neuro: General: oriented to person, oriented to place and oriented to time Extrem: General: normal to inspection Psych: Appearance: grossly normal Objective Data Vital Signs Vital Signs: Vital Signs - 24 hr 12/03/24 11:29 12/03/24 11:29 12/03/24 11:40 Temperature Pulse Rate 85 92 Respiratory Rate 16 16 Blood Pressure Pulse Oximetry 97 Oxygen Delivery Nasal Cannula Oxygen Flow Rate 2 Fraction of Inspired Oxygen 12/03/24 12:00 12/03/24 13:40 12/03/24 14:00 Temperature 36.6 C Pulse Rate 96 90 Respiratory Rate 20 Blood Pressure 106/69 Pulse Oximetry 93 92 Oxygen Delivery Room Air Oxygen Flow Rate Fraction of Inspired Oxygen 12/03/24 15:46 12/03/24 15:54 12/03/24 16:00 Temperature Pulse Rate 92 88 100 Respiratory Rate 16 16 Blood Pressure Pulse Oximetry Oxygen Delivery Oxygen Flow Rate Fraction of Inspired Oxygen 12/03/24 19:30 12/03/24 20:00 12/03/24 20:00 Temperature 35.9 C L Pulse Rate 93 84 89 Respiratory Rate 18 18 Blood Pressure 120/78 Pulse Oximetry 92 Oxygen Delivery Oxygen Flow Rate Fraction of Inspired Oxygen 12/03/24 20:02 12/03/24 20:08 12/03/24 21:00 Temperature Pulse Rate 89 Respiratory Rate 18 Blood Pressure Pulse Oximetry 93 92 Oxygen Delivery Nasal Cannula Nasal Cannula Oxygen Flow Rate 1 1 Fraction of Inspired Oxygen 12/04/24 00:00 12/04/24 04:00 12/04/24 04:40 Temperature 36.7 C Pulse Rate 93 98 104 H Respiratory Rate 19 Blood Pressure 128/90 Pulse Oximetry 92 Oxygen Delivery Oxygen Flow Rate Fraction of Inspired Oxygen 12/04/24 07:55 12/04/24 07:55 12/04/24 08:03 Temperature Pulse Rate 86 86 Respiratory Rate 16 16 Blood Pressure Pulse Oximetry 95 Oxygen Delivery Nasal Cannula Oxygen Flow Rate 0.5 Fraction of Inspired Oxygen Intake/Output Intake/Output: Intake & Output 12/01/24 12/02/24 12/03/24 12/04/24 23:59 23:59 23:59 23:59 Intake Total 1900 1900 1650 240 Output Total 9 Balance 1899 1891 1650 240 Meds/Results Medications: Active Medications Generic Name Dose Route Start Last Admin Trade Name Freq PRN Reason Stop Dose Admin Acetaminophen 650 mg 11/29/24 04:32 12/03/24 15:31 Acetaminophen 325 Mg Tablet PO 650 mg Q6H PRN Administration Pain 1-3 or Fever Hydrocodone Bitart/Acetaminophen 1 tab 11/29/24 04:31 12/04/24 04:50 Hydrocodone/Acetaminophen (*Crx) 5-325 Mg Tablet PO 1 tab Q8H PRN Administration Pain 4-10 Albuterol 2 puff 11/29/24 04:31 11/29/24 09:01 Albuterol Sulfate (*Sp) Aerosol 1 Puff INHALATION 2 puff Q6HRT PRN Administration Shortness Of Breath Albuterol/Ipratropium 3 ml 12/01/24 12:00 12/04/24 07:55 Ipratropium 0.5 Mg/Albuterol Sulfate 2.5 Mg Ampul.Neb 3 Ml INHALATION 3 ml Q4HRT ABIODUN Administration Alprazolam 0.5 mg 11/29/24 04:31 12/02/24 08:29 Alprazolam (*Crx) 0.5 Mg Tablet PO 0.5 mg BID PRN Administration Anxiety Amlodipine Besylate 5 mg 11/29/24 21:50 12/03/24 08:24 Amlodipine Besylate 5 Mg Tablet PO 5 mg DAILY ABIODUN Administration Aspirin 81 mg 11/29/24 09:00 12/03/24 08:24 Aspirin 81 Mg Enteric Tablet PO 81 mg DAILY ABIODUN Administration Enoxaparin Sodium 40 mg 11/29/24 09:00 12/03/24 08:23 Enoxaparin 40 Mg/0.4 Ml Syringe SUB-Q 40 mg DAILY ABIODUN Administration Gabapentin 100 mg 11/29/24 09:00 12/03/24 21:05 Gabapentin 100 Mg Capsule PO 100 mg Q12HR ABIODUN Administration Guaifenesin 1,200 mg 11/29/24 21:00 12/03/24 21:05 Guaifenesin 12 Hr 600 Mg Tabcr PO 1,200 mg Q12HR ABIODUN Administration Cefepime HCl 2 gm/ Sodium 50 mls @ 100 mls/hr 11/29/24 14:00 12/04/24 05:41 Chloride IVPB 100 mls/hr Q8HR ABIODUN Administration Lactobacillus Acidophilus 1 tablet 12/04/24 09:00 Acidophilus/Bulgaricus Chewable Tablet PO QID ABIODUN Lisinopril 20 mg 11/29/24 21:50 12/03/24 08:24 Lisinopril 20 Mg Tablet PO 20 mg QAM ABIODUN Administration Loperamide HCl 2 mg 11/30/24 04:13 12/04/24 04:42 Loperamide Hcl 2 Mg Capsule PO 2 mg PRN PRN Administration Diarrhea Metronidazole 500 mg 12/01/24 14:00 12/04/24 05:41 Metronidazole 500 Mg Tablet PO 500 mg Q8HR ABIODUN Administration Morphine Sulfate 2 mg 11/30/24 11:29 12/03/24 10:43 Morphine Sulfate (*Crx) 2 Mg/Ml Inj IV PUSH 2 mg Q4H PRN Administration Pain Rated 7-10 Multivitamins/Minerals 1 tablet 11/29/24 21:00 12/03/24 21:05 Multivits W-Fe,Min Chewable Tablet PO 1 tablet HS ABIODUN Administration Pantoprazole Sodium 40 mg 11/29/24 21:00 12/03/24 21:05 Pantoprazole 40 Mg Tablet PO 40 mg HS ABIODUN Administration Radiology Results: ITS Impressions Chest CTA 11/29/24 07:11 IMPRESSION: 1. Extensive masslike consolidation right upper lobe with surrounding airspace consolidation, consistent with pneumonia. Recommend follow-up CT in 2-3 months following appropriate therapy to exclude underlying mass. 2: Small pericardial effusion. Trace right pleural effusion. Abdomen Ultrasound 11/30/24 09:38 IMPRESSION: 1: Unremarkable limited abdominal ultrasound. Labs Labs: Laboratory Results - last 24 hr 12/01/24 12/04/24 12/04/24 04:54 05:46 05:49 WBC 14.0 H RBC 3.07 L Hgb 9.3 L Hct 29.8 L MCV 97.1 MCH 30.3 MCHC 31.2 L RDW 13.6 Plt Count 431 H MPV 8.8 Immature Gran % (Auto) 1.3 H Neut % (Auto) 80.9 H Lymph % (Auto) 7.1 L [place] % (Auto) 8.1 Eos % (Auto) 1.9 Baso % (Auto) 0.7 Lymph # (Auto) 1.00 [place] # (Auto) 1.1 H Eos # (Auto) 0.3 Baso # (Auto) 0.1 Abs Immat Gran (auto) 0.18 H Absolute Neuts (auto) 11.3 H Absolute Nucleated RBC 0.000 Nucleated RBC % 0.0 Sodium 132 L Potassium 3.5 Chloride 98 Carbon Dioxide 30 Anion Gap 4 BUN 12 Creatinine 0.73 Estim Creat Clear Calc 68 Estimated GFR > 60 Glucose 108 Calcium 9.1 Magnesium 1.7 Total Bilirubin 0.2 AST 46 H ALT 42 H Alkaline Phosphatase 112 C-Reactive Protein 5.8 H NT-Pro-B Natriuret Pep 468 H Total Protein 6.5 Albumin 2.7 L Procalcitonin 0.5 Hepatitis C RNA Quant Hcv not detected HCV RNA (PCR) log10 Not Reportable HCV RNA PCR Test Info Comment
[2024-12-04] MEDS: GABAPENTIN 100 MG CAPSULE PO ×2 (09:34→20:50)
[2024-12-04] MEDS: guaiFENesin 12 HR 600 MG TABCR 1200 MG PO ×2 (09:34→20:50)
[2024-12-04] MEDS: ACIDOPHILUS/BULGARICUS CHEWABLE TABLET 1 TABLET PO ×4 (09:34→20:50)
[2024-12-04] MEDS: ASPIRIN 81 MG ENTERIC TABLET PO (09:35)
[2024-12-04] MEDS: ENOXAPARIN 40 MG/0.4 ML SYRINGE SUB-Q (09:35)
[2024-12-04 10:56] LABS: Toxigenic C. Diff NEGATIVE (NEGATIVE)
--- NOTE | 2024-12-04 11:42 | P.PNIM_ITS ---
Progress Note: A&P Assessment and Plan (1) Lobar pneumonia: Code(s): J18.1 - Lobar pneumonia, unspecified organism Status: Acute Assessment and Plan: CTA showing extensive masslike consolidation right upper lobe with surrounding airspace consolidation consistent with pneumonia. MRSA negative * See Above #1 * Bronchodilators. increased to Q 4 for patient's continued wheezing per pulmonology * Guaifenesin * incentive spirometry while awake. * sputum culture ordered * influenza/COVID/RSV negative * respiratory panel * Legionella, mycoplasma chlamydia pneumoniae Negative * supplemental oxygen therapy to maintain oxygen 92% on RA but desaturation overnight on apnea study * Pulmonary consulted request if patient's wheezing does not improve with the increased bronchodilators to 1st attempt inhaled steroids and if still no improvement oral prednisone at 40 mg daily but would like to avoid systematic steroids able. * Repeat apnea study tonight (2) Transaminitis: Code(s): R74.01 - Elevation of levels of liver transaminase levels Status: Acute Assessment and Plan: Patient with elevated liver enzymes POA denies any abdominal tenderness * U/S no significant findings * Hepatitis panel with reactive Hep C AB/RNA pending * Trend (3) Acute hyponatremia: Code(s): E87.1 - Hypo-osmolality and hyponatremia Status: Acute Assessment and Plan: Patient hyponatremic 129 POA Likely secondary to dehydration improving fluids * IV fluids * Trend daily labs * Encourage oral intake (4) COPD (chronic obstructive pulmonary disease): Code(s): J44.9 - Chronic obstructive pulmonary disease, unspecified Status: Acute Assessment and Plan: Patient was previous smoker with history of COPD * Inhalers p.r.n. continued * DuoNebs scheduled * Supplemental oxygen wean as tolerated to maintain 92% (5) Hypertension: Code(s): I10 - Essential (primary) hypertension Status: Chronic Assessment and Plan: Patient with history of hypertension primary care physician recently discontinued patient's amlodipine and lisinopril * Monitor BP per unit protocol (6) Diarrhea: Code(s): R19.7 - Diarrhea, unspecified Status: Acute Assessment and Plan: Patient with moderate diarrhea * c-diff pending * if c-diff negative can have Imodium * added probiotic likely secondary to ABX therapy (7) Acute hypokalemia: Code(s): E87.6 - Hypokalemia Status: Resolved Assessment and Plan: Potassium 3.1 * replenished 40 meq * trend replenish as needed (8) Hypomagnesemia: Code(s): E83.42 - Hypomagnesemia Status: Acute Assessment and Plan: [facility] 1.7 * trend and replenish as needed (9) Sepsis: Qualifiers: Sepsis acute organ dysfunction status: unspecified Sepsis type: sepsis due to unspecified organism Qualified Code(s): A41.9 - Sepsis, unspecified organism Code(s): A41.9 - Sepsis, unspecified organism Status: Resolved Assessment and Plan: Meeting at SIRS criteria likely secondary to underlying lobar pneumonia recent COVID infection testing positive a week prior but is not currently positive * Infectious disease consulted changed IV antibiotics to cefepime, Flagyl and azithromycin, azithromycin has been completed, ESR 125, WBC peaked at 31.1 downtrending 20 today * sputum culture pending * Two sets of blood cultures NGTD q48 hr * trend C-reactive proteins * procalcitonin level 2.1 down to 1.1 * Resolved Plan Code status: Full code per patient DVT prophylaxis: Lovenox Stress ulcer prophylaxis: NA PT/OT notes: Ambulatory with walker Disposition: Patient admitted to the medical unit for further evaluation and treatment pneumonia consult to Pulmonary and Infectious Disease continue with current treatment plan patient was ambulatory with walker. Plan to return home at discharge Time Spent With Patient Time with patient: 15 - 25 minutes Subjective Date/time seen: 12/04/24 11:42 Interval history: Patient is a 69-year-old female admitted for acute respiratory failure with hypoxia secondary to sepsis with pneumonia. Patient admitted to the medical unit with consult to pulmonology and Infectious Disease assisting with antibiotic therapy. 12/04/2024: Patient progressing slowly still with SOB with ambulating to the restroom but without oxygen. Still with generalized weakness. Apnea study with desaturation leukocytosis with slow downtrend. Review of Systems Review of Systems: All systems reviewed & are unremarkable except as noted in HPI and below Exam Const: General: comfortable and no acute distress Other: Pleasant female Eyes: General: appearance normal, both eyes and all related structures Sclera: sclerae normal Pupils: Equal, round and reactive pupils present EOM: EOMs intact bilaterally Neck: Neck: supple and no JVD Resp: Auscultation: rhonchi, wheezes (scant) scattered wheezes and diminished lung sounds on the right in the upper lung [place] Cardio: Rate: regular rate Rhythm: regular rhythm GI: Auscultation: normal bowel sounds Skin: General skin exam: normal color Wounds: no wounds Neuro: General: gait normal Cranial nerves: Yes Equal, round and reactive pupils present Speech: normal speech Motor exam (neuro): 5/5 motor strength present throughout Sensory Exam: normal sensation Extrem: General: normal to inspection Psych: Mental Status: mental status grossly normal Affect: normal affect Objective Data Vital Signs Vital Signs: Vital Signs - 24 hr 12/03/24 12:00 12/03/24 13:40 12/03/24 14:00 Temperature 97.9 F Pulse Rate 96 90 Respiratory Rate 20 Blood Pressure 106/69 Pulse Oximetry 93 92 Oxygen Delivery Room Air Oxygen Flow Rate Fraction of Inspired Oxygen 12/03/24 15:46 12/03/24 15:54 12/03/24 16:00 Temperature Pulse Rate 92 88 100 Respiratory Rate 16 16 Blood Pressure Pulse Oximetry Oxygen Delivery Oxygen Flow Rate Fraction of Inspired Oxygen 12/03/24 19:30 12/03/24 20:00 12/03/24 20:00 Temperature 96.6 F L Pulse Rate 93 84 89 Respiratory Rate 18 18 Blood Pressure 120/78 Pulse Oximetry 92 Oxygen Delivery Oxygen Flow Rate Fraction of Inspired Oxygen 12/03/24 20:02 12/03/24 20:08 12/03/24 21:00 Temperature Pulse Rate 89 Respiratory Rate 18 Blood Pressure Pulse Oximetry 93 92 Oxygen Delivery Nasal Cannula Nasal Cannula Oxygen Flow Rate 1 1 Fraction of Inspired Oxygen 12/04/24 00:00 12/04/24 04:00 12/04/24 04:40 Temperature 98.0 F Pulse Rate 93 98 104 H Respiratory Rate 19 Blood Pressure 128/90 Pulse Oximetry 92 Oxygen Delivery Oxygen Flow Rate Fraction of Inspired Oxygen 12/04/24 07:55 12/04/24 07:55 12/04/24 08:03 Temperature Pulse Rate 86 86 Respiratory Rate 16 16 Blood Pressure Pulse Oximetry 95 Oxygen Delivery Nasal Cannula Oxygen Flow Rate 0.5 Fraction of Inspired Oxygen 12/04/24 09:20 12/04/24 11:17 12/04/24 11:22 Temperature Pulse Rate 86 93 86 Respiratory Rate 16 16 Blood Pressure Pulse Oximetry Oxygen Delivery Oxygen Flow Rate Fraction of Inspired Oxygen Intake/Output Intake/Output: Intake & Output 12/01/24 12/02/24 12/03/24 12/04/24 23:59 23:59 23:59 23:59 Intake Total 1900 1900 1650 240 Output Total 9 Balance 1900 1891 1650 240 Meds/Results Medications: Active Medications Generic Name Dose Route Start Last Admin Trade Name Freq PRN Reason Stop Dose Admin Acetaminophen 650 mg 11/29/24 04:32 12/03/24 15:31 Acetaminophen 325 Mg Tablet PO 650 mg Q6H PRN Administration Pain 1-3 or Fever Hydrocodone Bitart/Acetaminophen 1 tab 11/29/24 04:31 12/04/24 04:50 Hydrocodone/Acetaminophen (*Crx) 5-325 Mg Tablet PO 1 tab Q8H PRN Administration Pain 4-10 Albuterol 2 puff 11/29/24 04:31 11/29/24 09:01 Albuterol Sulfate (*Sp) Aerosol 1 Puff INHALATION 2 puff Q6HRT PRN Administration Shortness Of Breath Albuterol/Ipratropium 3 ml 12/01/24 12:00 12/04/24 11:13 Ipratropium 0.5 Mg/Albuterol Sulfate 2.5 Mg Ampul.Neb 3 Ml INHALATION 3 ml Q4HRT ABIODUN Administration Alprazolam 0.5 mg 11/29/24 04:31 12/02/24 08:29 Alprazolam (*Crx) 0.5 Mg Tablet PO 0.5 mg BID PRN Administration Anxiety Amlodipine Besylate 5 mg 11/29/24 21:50 12/04/24 09:34 Amlodipine Besylate 5 Mg Tablet PO 5 mg DAILY ABIODUN Administration Aspirin 81 mg 11/29/24 09:00 12/04/24 09:35 Aspirin 81 Mg Enteric Tablet PO 81 mg DAILY ABIODUN Administration Enoxaparin Sodium 40 mg 11/29/24 09:00 12/04/24 09:35 Enoxaparin 40 Mg/0.4 Ml Syringe SUB-Q 40 mg DAILY ABIODUN Administration Gabapentin 100 mg 11/29/24 09:00 12/04/24 09:34 Gabapentin 100 Mg Capsule PO 100 mg Q12HR ABIODUN Administration Guaifenesin 1,200 mg 11/29/24 21:00 12/04/24 09:34 Guaifenesin 12 Hr 600 Mg Tabcr PO 1,200 mg Q12HR ABIODUN Administration Cefepime HCl 2 gm/ Sodium 50 mls @ 100 mls/hr 11/29/24 14:00 12/04/24 05:41 Chloride IVPB 12/05/24 23:59 100 mls/hr Q8HR ABIODUN Administration Lactobacillus Acidophilus 1 tablet 12/04/24 09:00 12/04/24 09:34 Acidophilus/Bulgaricus Chewable Tablet PO 1 tablet QID ABIODUN Administration Lisinopril 20 mg 11/29/24 21:50 12/04/24 09:34 Lisinopril 20 Mg Tablet PO 20 mg QAM ABIODUN Administration Loperamide HCl 2 mg 11/30/24 04:13 12/04/24 04:42 Loperamide Hcl 2 Mg Capsule PO 2 mg PRN PRN Administration Diarrhea Metronidazole 500 mg 12/01/24 14:00 12/04/24 05:41 Metronidazole 500 Mg Tablet PO 12/05/24 23:59 500 mg Q8HR ABIODUN Administration Morphine Sulfate 2 mg 11/30/24 11:29 12/03/24 10:43 Morphine Sulfate (*Crx) 2 Mg/Ml Inj IV PUSH 2 mg Q4H PRN Administration Pain Rated 7-10 Multivitamins/Minerals 1 tablet 11/29/24 21:00 12/03/24 21:05 Multivits W-Fe,Min Chewable Tablet PO 1 tablet HS ABIODUN Administration Pantoprazole Sodium 40 mg 11/29/24 21:00 12/03/24 21:05 Pantoprazole 40 Mg Tablet PO 40 mg HS ABIODUN Administration Radiology Results: ITS Impressions Chest CTA 11/29/24 07:11 IMPRESSION: 1. Extensive masslike consolidation right upper lobe with surrounding airspace consolidation, consistent with pneumonia. Recommend follow-up CT in 2-3 months following appropriate therapy to exclude underlying mass. 2: Small pericardial effusion. Trace right pleural effusion. Abdomen Ultrasound 11/30/24 09:38 IMPRESSION: 1: Unremarkable limited abdominal ultrasound. Labs Labs: Laboratory Results - last 24 hr 12/01/24 12/04/24 12/04/24 04:54 05:46 05:49 WBC 14.0 H RBC 3.07 L Hgb 9.3 L Hct 29.8 L MCV 97.1 MCH 30.3 MCHC 31.2 L RDW 13.6 Plt Count 431 H MPV 8.8 Immature Gran % (Auto) 1.3 H Neut % (Auto) 80.9 H Lymph % (Auto) 7.1 L [place] % (Auto) 8.1 Eos % (Auto) 1.9 Baso % (Auto) 0.7 Lymph # (Auto) 1.00 [place] # (Auto) 1.1 H Eos # (Auto) 0.3 Baso # (Auto) 0.1 Abs Immat Gran (auto) 0.18 H Absolute Neuts (auto) 11.3 H Absolute Nucleated RBC 0.000 Nucleated RBC % 0.0 Sodium 132 L Potassium 3.5 Chloride 98 Carbon Dioxide 30 Anion Gap 4 BUN 12 Creatinine 0.73 Estim Creat Clear Calc 68 Estimated GFR > 60 Glucose 108 Calcium 9.1 Magnesium 1.7 Total Bilirubin 0.2 AST 46 H ALT 42 H Alkaline Phosphatase 112 C-Reactive Protein 5.8 H NT-Pro-B Natriuret Pep 468 H Total Protein 6.5 Albumin 2.7 L Procalcitonin 0.5 C. difficile (PCR) Hepatitis C RNA Quant Hcv not detected HCV RNA (PCR) log10 Not Reportable HCV RNA PCR Test Info Comment 12/04/24 10:01 WBC RBC Hgb Hct MCV MCH MCHC RDW Plt Count MPV Immature Gran % (Auto) Neut % (Auto) Lymph % (Auto) [place] % (Auto) Eos % (Auto) Baso % (Auto) Lymph # (Auto) [place] # (Auto) Eos # (Auto) Baso # (Auto) Abs Immat Gran (auto) Absolute Neuts (auto) Absolute Nucleated RBC Nucleated RBC % Sodium Potassium Chloride Carbon Dioxide Anion Gap BUN Creatinine Estim Creat Clear Calc Estimated GFR Glucose Calcium Magnesium Total Bilirubin AST ALT Alkaline Phosphatase C-Reactive Protein NT-Pro-B Natriuret Pep Total Protein Albumin Procalcitonin C. difficile (PCR) Negative Hepatitis C RNA Quant HCV RNA (PCR) log10 HCV RNA PCR Test Info Quality VTE Prophylaxis VTE prophylaxis: pharmacologic ordered -Patient's previous records reviewed on admission -ER notes reviewed in detail on admission -discussed all findings and current treatment plan with patient/Family/POA -Consultations reviewed for recommendations -Patient's disposition for safe discharge discussed with caseworker Dictation performed by [employer] direct speech recognition software, therefore architect variants and typographical errors may occur. Hospitalist MIPS Advance Care Plan I have confirmed that the patient's Advanced Care Plan is present, code status is documented, or surrogate decision maker is listed in patient medical record.: Yes Medication Reconciliation I have utilized all available resources to obtain, update and review the patients current medications (includes all prescriptions, OTC, herbals, cannabis, and nutritional supplements).: Yes The patient is not eligible for med reconciliation; the patient is in a emergent medical situation where delaying treatment would jeopardize the patients health.: No
[2024-12-04] MEDS: MULTIVITS W-FE,MIN CHEWABLE TABLET 1 TABLET PO (20:51)
[2024-12-04] MEDS: PANTOPRAZOLE 40 MG TABLET PO (20:51)
[2024-12-05] VITALS (11 sets, daily range): BP systolic 137; BP diastolic 98; PULSE 81–101; RESP 17–20; TEMP 36.5; O2SAT 91–95
[2024-12-05] MEDS: CEFEPIME 2 GM in SODIUM CHLORIDE 0.9% IV 50 ML 100 ML IVPB (05:35)
[2024-12-05 05:56] LABS: Hematocrit 28.7 % (37.0-47.0); Hemoglobin 8.9 g/dL (12.0-15.0); Immature Granulocyte Percent A 1.3 % (0-0.5); Lymphocytes Absolute Auto 1.28 K/mm3 (0.9-3.2); Mean Corpuscular HGB Conc 31.0 g/dl (32-36); Mean Corpuscular Hemoglobin 30.5 pg (26-34); Mean Corpuscular Volume 98.3 fl (80-100); Nucleated Red Blood Cells Absolute Auto 0.000 K/mm3 (0.0-0.012); Nucleated Red Blood Cells Perc 0.0 % (0.0-0.2); Platelet Count Result 480 k/mm3 (150-375); Red Blood Count 2.92 M/mm3 (4.2-5.4); White Blood Count 12.1 K/mm3 (4.5-10.0)
[2024-12-05 06:22] LABS: Alanine Aminotransferase 37 U/L (6-35); Albumin Level 2.7 g/dL (3.5-5.1); Alkaline Phosphatase 106 U/L (38-126); Anion Gap 5 mmol/L (4-12); Aspartate Amino Transferase 49 U/L (14-36); Bilirubin,Total 0.2 mg/dL (0.2-1.3); Blood Urea Nitrogen 11 mg/dL (7-17); Calcium 8.8 mg/dL (8.4-10.2); Carbon Dioxide 29 mmol/L (22-30); Chloride 98 mmol/L (98-107); Estimated CRCL calculation 62 ml/min; Estimated Glomerular Filt Rate > 60; Glucose 103 mg/dL (65-110); Magnesium 1.8 mg/dL (1.6-2.3); Potassium 3.7 mmol/L (3.4-5.0); Sodium 132 mmol/L (137-145); Total Protein 6.3 g/dL (6.3-8.2)
[2024-12-05] MEDS: IPRATROPIUM 0.5 MG/ALBUTEROL SULFATE 2.5 MG AMPUL.NEB 3 ML INHALATION ×2 (07:26→11:00)
--- NOTE | 2024-12-05 07:55 | PM.PNPUL ---
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 COVID, influenza, RSV RT PCR assay negative, MRSA nasal swab negative. 11/29/24: Plan: Continue cefepime, azithromycin and Flagyl. Blood and sputum cultures pending. Respiratory pathogen panel, urine for Streptococcus, urine for Legionella, chlamydia PCR, mycoplasma PCR all pending. Goal saturation 90-94%. Currently she is on room air. Infectious disease consultation following. 11/30/24: The patient tells me she is feeling better. States she has 20% back to her baseline. Her cough is unchanged. She is producing calderon phlegm with no blood. Her dyspnea on exertion is worse than when she came to the hospital. Patient had a fever last night at 38.3. Currently she is on room air with saturations 94%. White blood cell count improved to 21.2, creatinine 0.79. CRP is minimally improved from 26.1 on 11/29/2024 to 23.7 today. Procalcitonin is improved from 2.1 yesterday to 1.5 today. yesterday she was 1.5 L positive, cumulative she is 1.9 L positive since admission. Plan: patient had a fever last night. Clinically the patient has improved, oxygenation has improved, leukocytosis has improved, minimal improvement in CRP. Continue cefepime ( started 11/28), azithromycin ( started 11/28) and Flagyl ( started 11/29). I will check a chest x-ray tomorrow morning. 12/01/24: The patient tells me she continues to improve. She states she is breathing 50% back to her baseline. Her cough is normal, she still has right-sided chest pain. She has developed diarrhea. Her last fever was on 11/29/2024 at 9:02 p.m. and she has been afebrile since then. When I enter the room she was on 2 L nasal cannula saturations 96%, I decreased her to 1 L and her saturation was 95%. Her white blood cell count is 20.6, creatinine was 0.83. Her CRP has decreased from 20/3 0.7 yesterday to 15.9 today. Her procalcitonin is decreased from 1.5 yesterday to 1.1 today. Her BNP remains essentially unchanged from 1280 on 11/29/2024 to 1320 today. Her weight today is 79.6. Her chest x-ray today shows continued right upper lobe consolidative mass with no change from 11/28/2024. Plan: patient continues to improve. Patient afebrile, and white blood cell count, CRP, procalcitonin All improving and chest x-ray stable on cefepime ( started 11/28), azithromycin ( started 11/28) and Flagyl ( started 11/29). infectious Disease following. Pulmonary inpatient consultative services will resume on 12/04/2024, call with questions. 12/04/24: Tells me she continues to improve. Overall states she has 50% back to her normal. She has no rest shortness of breath and no dyspnea on exertion walking to the bathroom. She has a persistent cough increased from her baseline with yellow phlegm and no hemoptysis. When I enter the room she was on 0.5 L nasal cannula saturations 94% I decreased her to room air and her saturations were 93%. Her white blood cell count is 14.0, creatinine is 0.73. Her CRP has improved from 12.4 on 12/02/2024 to 5.8 today. Her procalcitonin has improved from 0.8 on 12/02/2024 to 0.5 today. Her BNP has improved from 1320 on 12/01/24 to 468 today. patient had an overnight oximetry on 1 L with recording duration of 9 hours and 36 minutes. Average saturation 93%. Low saturation 81%. Time with saturation less than or equal to 88% was 39 minutes. Oxygen desaturation index 6.8. Plan: patient continues to slowly improve. Continue cefepime started 11/28/2024 and continue Flagyl started 11/29/2024, and she has completed course of azithromycin. She is afebrile, leukocytosis persists, her CRP, and procalcitonin both continue to improve. Respiratory pathogen panel negative, urine Legionella negative, urine pneumococcal antigen negative, sputum normal jackie, blood cultures negative x2. I will repeat a chest x-ray today. later in the day: Chest x-ray with continued right upper lobe consolidative infiltrate with no change compared to 11/30/2024 12/05/2024: Patient says she feels much better. States she is 75% back to her normal. She has no shortness of breath at rest. She has no dyspnea on exertion walking to the bathroom. She has a cough and is able to expectorate. Currently she is on room air with saturations 94%. She is afebrile. White blood cell count 12.1, creatinine 0.71. Her weight is 75.3 kg. Patient had an overnight oximetry on 3 L with recording duration 7 hours and 1 minute. Average saturation 96%. Low saturation 90%. Time with saturation less than or equal to 88% was 0 minutes. Oxygen desaturation index 0.8. She has no wheezing. She feels she is ready to go home today. Plan: Patient on cefepime, started 11/28/2024 and Flagyl, started 11/29/2024 and has completed 5 day course of azithromycin. From a pulmonary perspective patient is ready to be discharged home on these pulmonary medications: To complete antibiotics for severe consolidative pneumonia per Infectious Disease consult team. Beta agonist and muscarinic antagonist that insurance will cover (Anoro Ellipta 62.5/25 at 1 puff Q day, stiolto respimat 2.5/2.5 at 1 puff BID, bevespi aerosphere 9 mcg/4.8 at 2 puffs BID, combivent respimat at 2 puffs Q 4 HR or separate albuterol and atrovent inhalers at 2 puffs Q 4 HR) Rescue albuterol 2 puffs q.4 hours p.r.n. shortness of breath or wheezing. Oxygen at rest and with activity per formal home O2 assessment which I have ordered. Oxygen when she naps and sleeps at 3 L nasal cannula. Follow-up in the Pulmonary Clinic in 3-4 weeks. I gave the patient our business card and informed our county health officer. Discussed with Dr. Nolan, will sign off, call with questions. (2) COPD (chronic obstructive pulmonary disease): Code(s): J44.9 - Chronic obstructive pulmonary disease, unspecified Status: Acute Assessment and Plan: GOLD grade 2 group B COPD Patient with 40 pack year tobacco use, quit 2016, currently smoking 2-3 marijuana cigarettes a day, PFTs on 07/07/2024 with moderately severe obstructive abnormality, FEV1 1.44 L, 57% predicted, ratio 53% predicted. No bronchodilator response, normal lung volumes moderately decreased DLCO that remains mildly decreased when adjusted for alveolar volume. CT scan of the chest on 04/17/2024 as well as 11/29/2024 demonstrates moderate to severe apical predominant centrilobular emphysema. She is on no home oxygen. 11/28/2021 white blood cell count 28.9, eosinophils 0.2%=58/uL. At baseline she can walk a quarter of a mi and then stops for respiratory insufficiency, she has shortness of breath with her activities of daily living. She is maintained on trelegy 100- 62.5-25 at 1 puff q.day 11/29/24: Currently the patient is not wheezing and I do not believe she is having a COPD exacerbation. Plan: patient with the pneumonia and I will discontinue inhaled corticosteroids. Place the patient on DuoNebs q.6 hours and Mucomyst nebulizers q.6 hours. Will add guaifenesin to 1200 mg p.o. b.i.d. I will check an ABG to exclude hypercarbic respiratory failure. Room air ABG later in the day was 7.42/33/65. No evidence of hypercarbic respiratory failure. 11/30/24: I do not believe the patient is having a COPD exacerbation. ABG demonstrates no hypercarbic respiratory failure. Currently she is on room air. Plan: Continue DuoNebs and Mucomyst nebulizers q.6 hours. continue guaifenesin 1200 mg p.o. b.i.d.. I will add a Cornet flutter valve. Goal saturation 90-94%. 12/01/2024: Patient states her breathing continues to improve. There were a few scant expiratory wheezes on exam today. Plan: I will increase her DuoNebs to q.4 hours. I will discontinue the Mucomyst nebulizers as these can cause bronchospasm. She is producing phlegm with guaifenesin 1200 p.o. b.i.d. and the Cornet flutter valve. Would like to avoid inhaled and systemic steroids given her pneumonia, however if her wheezing worsens she may required inhaled corticosteroids and/or systemic steroids. 12/04/24: No wheezes today. Plan: Continue DuoNebs q.4 hours, Guaifenesin 1200 p.o. b.i.d. and Cornet flutter valve. No need for inhaled or systemic steroids at this time. 12/05/2024: No wheezes today. Plan: Patient has had 2 severe pneumonias in the last 5 months and I will discontinue inhaled corticosteroids as an outpatient. Will place the patient on LABA plus LAMA and rescue albuterol. Overnight ox 3 L nasal cannula provides adequate oxygen. Patient have home O2 assessment today. Subjective Date/time seen: 12/05/24 07:55 Interval history: 11/29/2024: This is a new pulmonary consult for right upper lobe pneumonia. 69-year-old with a history of COPD, hypertension, CKD, osteoarthritis, hydrocephalus with [employer] shunt as a child. Regarding her COPD. Patient smoked cigarettes from age [age] a 1 pack per day for total of 40 pack years. Patient smokes marijuana 2-3 cigarettes a day for the last 40 years. Denies any illicit drug use. She was exposed to secondhand smoke from both of her parents and from her until 2006. 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 To 3 weeks ago the patient could walk a quarter of a mi then have to stop for dyspnea on exertion. Overall she can walk 2 miles in 1 hour. She does have some shortness of breath with her activities of daily living. At baseline her room air saturations are 91-92%. 04/17/2024: Patient presented to the emergency department at [facility] with 2 weeks nausea, vomiting, diarrhea right-sided chest pain, pleuritic in nature, room air saturations 96%., Leukocytosis 17.9, and CT angiogram of the chest that showed moderate to severe apical predominant panlobular emphysema, large masslike consolidation right middle lobe. patient was discharged on azithromycin. No infiltrate or mass in the right upper lobe. Discharged from the emergency department. 05/19/2024: CT scan of the chest with decreased size of the right middle lobe infiltrate and mass now with a cavity. no infiltrate or mass in the right upper lobe. Patient was previously seen in the Pulmonary Clinic on 06/27/2024 for COPD and decreasing right middle lobe cavity. Patient smoked tobacco Quit in 2017and marijuana, does not wheeze, no weight loss. Using trilogy and rescue albuterol 1 to 2 times a day. Daily cough with clear secretions sometimes yellow. Last pneumonia was 2017. plan: PET scan, PFTs, 6 minute walk, sputum for bacterial fungal and AFB X 3. 07/06/2024: CT-PET: Continue decreased size of the right middle lobe infiltrate and cavity now with no cavity and scarring. Small nodule inferior right upper lobe with an SUV of 1.7, patchy airspace opacities in the lower lobes with maximal SUV 3.7 on the right and 2.4 on the left. lingular posterior consolidation with an SUV of 5.6. He these were new since 05/19/2024 and consistent with pneumonia. 07/12/2024: Dr. Haider called her, reviewed all test results 07/12/2024. 1) PET Scan 07/06/24; IMPRESSION: Mild uptake associated with multiple new regions of consolidation and patchy airspace opacities in both lungs which given the appearance, distribution and rapid progression most consistent with evolving pneumonia. Small region of discoid atelectasis without abnormal FDG uptake at the site of the prior large masslike opacity in the right middle lobe consistent with resolving pneumonia. No other FDG avid lesions suspicious for primary malignancy or metastatic disease. PET is consistent with pneumonia, not cancer. 2) Sputum; sputum on 06/29/2024 Normal jackie, AFB smear negative, AFB culture negative at 6 weeks. No fungal elements seen. Scant growth of Tanja parapsilosis sp. Isolate #2: dematiaceous mold isolated. Sputum 06/30/2024: Growth of normal jackie. AFB smear negative, AFB culture negative at 6 weeks. No fungal elements seen. Growth of an unidentified mold not resembling any of the known human pathogens on the fungal culture. Sputum 07/01/2024: Growth of normal jackie, AFB smear negative, AFB cultures negative at 6 weeks. No fungal elements seen, no fungal growth at 4 weeks. 3) 6 minute walk showed that she completed is 273 m, 900 ft, did not desaturate. 4) PFT show moderate obstructive ventilatory impairment without response to bronchodilator, and she is on Trelegy 100, did not appear on her med list on the first office visit. She is on treatment, CAT score is low, nothing else needed right now. 5) She found out that her primary care doctor does not have rheumatoid arthritis as a diagnosis. During her initial visit, she told me that she had RA but now we know, she does not. This was important because RA can cause cavitary lung lesions. 11/28/2024: Patient presented to the emergency department with shortness of breath and dyspnea on exertion. on 11/19/2024 after being exposed to her son in law and daughter who were COVID positive she tested COVID positive. She had a fever, cough, increased phlegm production that was calderon with occasional hemoptysis. Her symptoms progressed and on 11/28 she went to a PCP and had an elevated white blood cell count was told to come to the emergency department. She was afebrile. Blood pressure 111/58, heart rate 114, respirations 17, room air saturations 95% and then placed on 2 L with saturations 96%. She had decreased breath sounds in the right upper lobe. White blood cell count 28.9 with eosinophils 0.2%. Creatinine 0.99, COVID influenza and RSV RT PCR assay negative. Chest x-ray with dense consolidation right upper lobe. CT angiogram of the chest compared to PET scan CT on 07/06/2024 showed no change in her apical predominant panlobular emphysema, new dense right upper lobe consolidative infiltrate, unchanged right middle lobe scarring -atelectasis, resolved bilateral lower lobe infiltrates, resolved lingular infiltrates. Patient was given 1 L IV fluids. 11/29/2024: infectious disease consulted, antibiotics changed to cefepime, Flagyl and azithromycin. currently the patient tells me she feels the same as yesterday. When I enter the room she was on 2 L nasal cannula saturation 97%. I decreased her to room air and her saturations were 94%. White blood cell count 31.0, creatinine 0.82, CRP 26.1, procalcitonin 2.1, BNP 1280, MRSA nasal swab PCR negative. room air ABG later in the day was 7 0.42/33/65 11/30/24: The patient tells me she is feeling better. States she has 20% back to her baseline. Her cough is unchanged. She is producing calderon phlegm with no blood. Her dyspnea on exertion is worse than when she came to the hospital. Patient had a fever last night at 38.3. Currently she is on room air with saturations 94%. White blood cell count improved to 21.2, creatinine 0.79. CRP is minimally improved from 26.1 on 11/29/2024 to 23.7 today. Procalcitonin is improved from 2.1 yesterday to 1.5 today. yesterday she was 1.5 L positive, cumulative she is 1.9 L positive since admission. 12/01/24: The patient tells me she continues to improve. She states she is breathing 50% back to her baseline. Her cough is normal, she still has right-sided chest pain. She has developed diarrhea. Her last fever was on 11/29/2024 at 9:02 p.m. and she has been afebrile since then. When I enter the room she was on 2 L nasal cannula saturations 96%, I decreased her to 1 L and her saturation was 95%. Her white blood cell count is 20.6, creatinine was 0.83. Her CRP has decreased from 20/3 0.7 yesterday to 15.9 today. Her procalcitonin is decreased from 1.5 yesterday to 1.1 today. Her BNP remains essentially unchanged from 1280 on 11/29/2024 to 1320 today. Her weight today is 79.6. Her chest x-ray today shows continued right upper lobe consolidative mass with no change from 11/28/2024. 12/04/24: Tells me she continues to improve. Overall states she has 50% back to her normal. She has no rest shortness of breath and no dyspnea on exertion walking to the bathroom. She has a persistent cough increased from her baseline with yellow phlegm and no hemoptysis. When I enter the room she was on 0.5 L nasal cannula saturations 94% I decreased her to room air and her saturations were 93%. Her white blood cell count is 14.0, creatinine is 0.73. Her CRP has improved from 12.4 on 12/02/2024 to 5.8 today. Her procalcitonin has improved from 0.8 on 12/02/2024 to 0.5 today. Her BNP has improved from 1320 on 12/01/24 to 468 today. patient had an overnight oximetry on 1 L with recording duration of 9 hours and 36 minutes. Average saturation 93%. Low saturation 81%. Time with saturation less than or equal to 88% was 39 minutes. Oxygen desaturation index 6.8. later in the day: Chest x-ray with continued right upper lobe consolidative infiltrate with no change compared to 11/30/2024 12/05/2024: Patient says she feels much better. States she is 75% back to her normal. She has no shortness of breath at rest. She has no dyspnea on exertion walking to the bathroom. She has a cough and is able to expectorate. Currently she is on room air with saturations 94%. White blood cell count 12.1, creatinine 0.71. Her weight is 75.3 kg. Patient had an overnight oximetry on 3 L with recording duration 7 hours and 1 minute. Average saturation 96%. Low saturation 90%. Time with saturation less than or equal to 88% was 0 minutes. Oxygen desaturation index 0.8. She has no wheezing. She feels she is ready to go home today. DATA: 12/04/24: overnight oximetry on 3 L with recording duration 7 hours and 1 minute. Average saturation 96%. Low saturation 90%. Time with saturation less than or equal to 88% was 0 minutes. Oxygen desaturation index 0.8. 12/03/24: overnight oximetry on 1 L with recording duration of 9 hours and 36 minutes. Average saturation 93%. Low saturation 81%. Time with saturation less than or equal to 88% was 39 minutes. Oxygen desaturation index 6.8. 11/29/2024; EXAMINATION: CTA chest PE protocol INDICATION: Shortness of breath and hypoxia COMPARISON: CT dated 05/19/2024. FINDINGS: There is extensive masslike consolidation right upper lobe with surrounding pneumonia. There is atherosclerosis of the aorta without evidence for aneurysm or dissection. Small pericardial effusion. Study is technically adequate without evidence for pulmonary embolism. Trace right pleural effusion. Mild thoracic spondylosis with accentuated kyphosis. IMPRESSION: 1. Extensive masslike consolidation right upper lobe with surrounding airspace consolidation, consistent with pneumonia. Recommend follow-up CT in 2-3 months following appropriate therapy to exclude underlying mass. 2: Small pericardial effusion. Trace right pleural effusion. 07/06/2024: EXAMINATION: PET skull to mid thigh INDICATION: Lung nodule COMPARISON: Chest CT dated 05/19/2024 and 04/17/2024 FINDINGS: Head/neck: There is symmetric increased activity in the oral cavity, palatine and lingual tonsils, parotid glands, submandibular glands, laryngeal muscles and ocular muscles without CT correlate, likely physiologic. There is linear increased FDG uptake extending anteroposteriorly along the right C3-C4 facet joint with corresponding severe osteoarthritis on CT and likely degenerative in etiology. No pathologically enlarged cervical lymphadenopathy or suspicious foci of increased FDG uptake in the visualized head or neck. Chest: Moderate emphysema. Continued evolution in patchy bilateral lung disease with near complete resolution of the previously large masslike region of consolidation seen on study from 04/17/2024 which developed some central cavitation on the more recent study from 05/19/2024 which is continued to significantly decrease in the size now with horizontal bandlike configuration consistent with residual atelectasis/scarring related to prior pneumonia. There is mild FDG uptake associated with a new small nodular opacity in the inferior right upper lobe with maximal SUV of 1.7, new patchy airspace opacities in the bilateral lower lobes with maximal SUV of 3.7 on the right and 2.4 on the left and a larger region of consolidation at the posterior lingula with maximal SUV of 5.6. These are all new since the prior study consistent with pneumonia. No pleural effusion. Heart size is normal. No pericardial effusion. Thoracic aorta is normal in caliber. No pathologically enlarged or abnormally FDG avid thoracic lymphadenopathy. Small focus of increased activity at the medial aspect of the right supraspinatus muscle without radiologic correlate which is likely physiologic. Small focus of increased uptake along the basilic vein at the distal right upper arm which is a small focus of uptake along the brachial vein likely representing minimal extravasation at the site of injection and adjacent mild lymphatic uptake activity. The mild uptake along the left triceps muscle without radiologic correlate also likely physiologic. Abdomen/pelvis/proximal thighs: Physiologic renal accumulation and excretion of FDG activity in the kidneys, bladder and along portions of ureters. Normal degree and heterogenous pattern of increased uptake throughout the liver without radiologic correlate or dominant FDG avid lesion. The gallbladder, pancreas, spleen and bilateral adrenal glands are normal. Mild uptake scattered throughout the bowels without radiologic correlate, also likely physiologic. No other abnormal foci of increased FDG uptake or pathologically enlarged lymphadenopathy in the abdomen, pelvis or proximal thighs. Musculoskeletal: Severe lumbar spondylosis. No other suspicious lytic, blastic or abnormally FDG avid bone lesions to suggest osseous metastatic disease. IMPRESSION: 1. Mild uptake associated with multiple new regions of consolidation and patchy airspace opacities in both lungs which given the appearance, distribution and rapid progression most consistent with evolving pneumonia. Small region of discoid atelectasis without abnormal FDG uptake at the site of the prior large masslike opacity in the right middle lobe consistent with resolving pneumonia. 2. No other FDG avid lesions suspicious for primary malignancy or metastatic disease. 05/19/24: Clinical indication:Right lung mass COMPARISON:04/17/2024 FINDINGS: LUNG:Interval decrease in size of the mass within the right middle lobe, now demonstrating cavitation for which a possible fungal etiology is suspected. The remainder of the lungs are clear. MEDIASTINUM:No pathologically enlarged or morphologically suspicious lymph nodes within the mediastinum. HEART:The heart is of normal size, without pericardial effusion. SOFT TISSUES OF THE CHEST: Unremarkable BONES OF THE CHEST: No lytic or blastic lesions identified IMPRESSION: Interval decrease in size of the abnormality seen within the right middle lobe on previous study, now demonstrating a central cavity, possibly fungal in origin. 04/17/2024: EXAMINATION: CTA chest PE protocol INDICATION: Shortness of breath with elevated d-dimer. Pulmonary embolus suspected clinically COMPARISON: Reference is made to CT examination of the chest dated 05/20/2023. Reference is also made to plain film evaluation of the chest, performed the same day. FINDINGS: No filling defect is identified within the main or proximal pulmonary arteries. The main pulmonary artery is enlarged, suggesting pulmonary hypertension. Intrapulmonary lymph node measuring 6 mm in short axis dimension is redemonstrated within the right middle lobe, increased in size since 05/20/2023. Interval development of a focus of soft tissue attenuation between the right middle and right lower lobes. Blood vessels course through this abnormality, rather than traversing around the abnormality. Severe panlobular emphysematous disease is also noted, as is a small right-sided pleural effusion. The thoracic aorta is nonaneurysmal. No dissection is appreciated Within the upper abdomen: The bilateral adrenal glands are unremarkable. Gallbladder is decompressed, and otherwise unremarkable. IMPRESSION: Panlobular emphysematous disease with interval development of a mass of soft tissue attenuation within the right hemithorax, with surrounding groundglass opacification. The rapidity of growth along with the leukocytosis suggest infectious etiology, rather than malignancy. Follow-up to resolution is recommended, as a malignancy may have a similar appearance No pulmonary embolus. No aortic dissection. 05/21/2023: Clinical Indication: Sepsis CT Scan of the Chest, Abdomen, and Pelvis without Contrast: Findings: There is no evidence of any significant mediastinal, hilar or axillary lymphadenopathy. The mediastinal soft tissues appear normal. Small to moderate pericardial effusion. There is no evidence of pleural or pericardial effusion. The lungs are clear. No pulmonary nodules or infiltrates are noted. Moderate emphysema present. The liver, spleen, pancreas, gallbladder, adrenals and kidneys are within normal limits. There are atherosclerotic calcifications of the aorta. No lymphadenopathy. No bowel obstruction or bowel wall thickening. There is no evidence to suggest acute appendicitis. Urinary bladder is unremarkable. No pelvic mass seen. No ascites. Impression: Moderate emphysema. [id number] pericardial effusion. No significant abnormality evident in the abdomen or pelvis. Review of Systems Constitutional: Constitutional: Reports no additional constitutional complaints Eyes: Eyes: Reports no additional eye complaints ENT: Reports system reviewed and no additional complaints, except as documented Cardiovascular: Cardiovascular: Reports no additional cardiovascular complaints Respiratory: Respiratory: Reports no additional respiratory complaints Gastrointestinal: Gastrointestinal: Reports no additional gastrointestinal complaints Musculoskeletal: Musculoskeletal: Reports no additional musculoskeletal complaints Neurologic: Reports system reviewed and no additional complaints, except as documented Psychiatric: Psychiatric: Reports no additional psychiatric complaints Endocrine: Endocrine: Reports no additional endocrine complaints Hematologic/Lymphatic: Hematologic/Lymphatic: Reports no additional hematologic/lymphatic complaints Allergic/Immunologic: Allergic/Immunologic: Reports no additional allergic/immunologic complaints Exam Const: General: cooperative, comfortable and uncomfortable Orientation/consciousness: oriented to person, oriented to place and oriented to time Other: no respiratory distress. HENMT: Head: normal to inspection Ears: hearing grossly normal bilaterally Eyes: General: appearance normal, both eyes and all related structures Neck: Neck: normal visual inspection Chest: Chest palpation & inspection: normal inspection of the chest Resp: Effort & Inspection: normal respiratory effort and able to speak in complete sentences Auscultation: no crackles, no rales, no rhonchi, no wheezes and diminished lung sounds Other: No wheezes today, Few bronchial breath sounds right upper lobe Cardio: Jugular venous distension: no JVD GI: Inspection: normal to inspection Skin: General skin exam: normal color Neuro: General: oriented to person, oriented to place and oriented to time Extrem: General: normal to inspection Psych: Appearance: grossly normal Objective Data Vital Signs Vital Signs: Vital Signs - 24 hr 12/04/24 08:03 12/04/24 09:20 12/04/24 11:17 Temperature Pulse Rate 86 86 93 Respiratory Rate 16 16 Blood Pressure Pulse Oximetry Oxygen Delivery Oxygen Flow Rate Fraction of Inspired Oxygen 12/04/24 11:22 12/04/24 12:00 12/04/24 14:00 Temperature 37.2 C Pulse Rate 86 94 85 Respiratory Rate 16 16 Blood Pressure 116/85 Pulse Oximetry 90 Oxygen Delivery Oxygen Flow Rate Fraction of Inspired Oxygen 12/04/24 15:35 12/04/24 15:43 12/04/24 16:00 Temperature Pulse Rate 90 90 90 Respiratory Rate 16 16 Blood Pressure Pulse Oximetry Oxygen Delivery Oxygen Flow Rate Fraction of Inspired Oxygen 12/04/24 19:53 12/04/24 20:00 12/04/24 20:00 Temperature 37.0 C Pulse Rate 86 98 88 Respiratory Rate 16 18 Blood Pressure 124/86 Pulse Oximetry 89 L Oxygen Delivery Oxygen Flow Rate Fraction of Inspired Oxygen 12/04/24 20:05 12/04/24 20:50 12/04/24 22:00 Temperature Pulse Rate 90 Respiratory Rate 16 Blood Pressure Pulse Oximetry 92 98 Oxygen Delivery Nasal Cannula Oxygen Flow Rate 1 3 Fraction of Inspired Oxygen 21 12/05/24 00:00 12/05/24 04:00 12/05/24 04:57 Temperature 36.5 C Pulse Rate 89 92 87 Respiratory Rate 17 Blood Pressure 137/98 H Pulse Oximetry 95 Oxygen Delivery Oxygen Flow Rate Fraction of Inspired Oxygen 12/05/24 07:27 Temperature Pulse Rate 84 Respiratory Rate 18 Blood Pressure Pulse Oximetry Oxygen Delivery Oxygen Flow Rate Fraction of Inspired Oxygen Intake/Output Intake/Output: Intake & Output 12/02/24 12/03/24 12/04/24 12/05/24 23:59 23:59 23:59 23:59 Intake Total 1900 1650 2620 350 Output Total 9 Balance 1891 1650 2620 350 Meds/Results Medications: Active Medications Generic Name Dose Route Start Last Admin Trade Name Freq PRN Reason Stop Dose Admin Acetaminophen 650 mg 11/29/24 04:32 12/03/24 15:31 Acetaminophen 325 Mg Tablet PO 650 mg Q6H PRN Administration Pain 1-3 or Fever Hydrocodone Bitart/Acetaminophen 1 tab 11/29/24 04:31 12/04/24 14:05 Hydrocodone/Acetaminophen (*Crx) 5-325 Mg Tablet PO 1 tab Q8H PRN Administration Pain 4-10 Albuterol 2 puff 11/29/24 04:31 11/29/24 09:01 Albuterol Sulfate (*Sp) Aerosol 1 Puff INHALATION 2 puff Q6HRT PRN Administration Shortness Of Breath Albuterol/Ipratropium 3 ml 12/01/24 12:00 12/05/24 07:26 Ipratropium 0.5 Mg/Albuterol Sulfate 2.5 Mg Ampul.Neb 3 Ml INHALATION 3 ml Q4HRT ABIODUN Administration Alprazolam 0.5 mg 11/29/24 04:31 12/02/24 08:29 Alprazolam (*Crx) 0.5 Mg Tablet PO 0.5 mg BID PRN Administration Anxiety Amlodipine Besylate 5 mg 11/29/24 21:50 12/04/24 09:34 Amlodipine Besylate 5 Mg Tablet PO 5 mg DAILY ABIODUN Administration Aspirin 81 mg 11/29/24 09:00 12/04/24 09:35 Aspirin 81 Mg Enteric Tablet PO 81 mg DAILY ABIODUN Administration Enoxaparin Sodium 40 mg 11/29/24 09:00 12/04/24 09:35 Enoxaparin 40 Mg/0.4 Ml Syringe SUB-Q 40 mg DAILY ABIODUN Administration Gabapentin 100 mg 11/29/24 09:00 12/04/24 20:50 Gabapentin 100 Mg Capsule PO 100 mg Q12HR ABIODUN Administration Guaifenesin 1,200 mg 11/29/24 21:00 12/04/24 20:50 Guaifenesin 12 Hr 600 Mg Tabcr PO 1,200 mg Q12HR ABIODUN Administration Cefepime HCl 2 gm/ Sodium 50 mls @ 100 mls/hr 11/29/24 14:00 12/05/24 05:35 Chloride IVPB 12/05/24 23:59 100 mls/hr Q8HR ABIODUN Administration Lactobacillus Acidophilus 1 tablet 12/04/24 09:00 12/04/24 20:50 Acidophilus/Bulgaricus Chewable Tablet PO 1 tablet QID ABIODUN Administration Lisinopril 20 mg 11/29/24 21:50 12/04/24 09:34 Lisinopril 20 Mg Tablet PO 20 mg QAM ABIODUN Administration Loperamide HCl 2 mg 11/30/24 04:13 12/04/24 14:01 Loperamide Hcl 2 Mg Capsule PO 2 mg PRN PRN Administration Diarrhea Metronidazole 500 mg 12/01/24 14:00 12/05/24 05:36 Metronidazole 500 Mg Tablet PO 12/05/24 23:59 500 mg Q8HR ABIODUN Administration Morphine Sulfate 2 mg 11/30/24 11:29 12/03/24 10:43 Morphine Sulfate (*Crx) 2 Mg/Ml Inj IV PUSH 2 mg Q4H PRN Administration Pain Rated 7-10 Multivitamins/Minerals 1 tablet 11/29/24 21:00 12/04/24 20:51 Multivits W-Fe,Min Chewable Tablet PO 1 tablet HS ABIODUN Administration Pantoprazole Sodium 40 mg 11/29/24 21:00 12/04/24 20:51 Pantoprazole 40 Mg Tablet PO 40 mg HS ABIODUN Administration Phenyleph/Shark Oil/Min Oil/Petrol 1 applic 12/04/24 19:59 Phenyleph/Shark Oil/Mo/Petrol Cream 26 Gm RECTAL DAILY PRN Hemorrhoids Radiology Results: ITS Impressions Chest CTA 11/29/24 07:11 IMPRESSION: 1. Extensive masslike consolidation right upper lobe with surrounding airspace consolidation, consistent with pneumonia. Recommend follow-up CT in 2-3 months following appropriate therapy to exclude underlying mass. 2: Small pericardial effusion. Trace right pleural effusion. Abdomen Ultrasound 11/30/24 09:38 IMPRESSION: 1: Unremarkable limited abdominal ultrasound. Chest X-Ray 12/04/24 11:51 IMPRESSION: 1. Unchanged masslike region of consolidation in the right upper lobe consistent with pneumonia. Recommend radiographic follow-up to resolution. 2. Small right pleural effusion. Labs Labs: Laboratory Results - last 24 hr 12/04/24 12/04/24 12/05/24 05:46 10:01 05:44 WBC 12.1 H RBC 2.92 L Hgb 8.9 L Hct 28.7 L MCV 98.3 MCH 30.5 MCHC 31.0 L RDW 13.6 Plt Count 480 H MPV 9.3 Immature Gran % (Auto) 1.3 H Neut % (Auto) 75.7 H Lymph % (Auto) 10.6 L [place] % (Auto) 8.7 H Eos % (Auto) 2.8 Baso % (Auto) 0.9 Lymph # (Auto) 1.28 [place] # (Auto) 1.1 H Eos # (Auto) 0.3 Baso # (Auto) 0.1 Abs Immat Gran (auto) 0.16 H Absolute Neuts (auto) 9.2 H Absolute Nucleated RBC 0.000 Nucleated RBC % 0.0 Sodium 132 L Potassium 3.7 Chloride 98 Carbon Dioxide 29 Anion Gap 5 BUN 11 Creatinine 0.71 Estim Creat Clear Calc 62 Estimated GFR > 60 Glucose 103 Calcium 8.8 Magnesium 1.8 Total Bilirubin 0.2 AST 49 H ALT 37 H Alkaline Phosphatase 106 C-Reactive Protein 5.8 H NT-Pro-B Natriuret Pep 468 H Total Protein 6.3 Albumin 2.7 L Procalcitonin 0.5 C. difficile (PCR) Negative
[2024-12-05] MEDS: ENOXAPARIN 40 MG/0.4 ML SYRINGE SUB-Q (08:39)
[2024-12-05] MEDS: ASPIRIN 81 MG ENTERIC TABLET PO (08:40)
[2024-12-05] MEDS: HYDROcodone/acetaminophen (*CRX) 5-325 MG TABLET 1 TAB PO (08:40)
[2024-12-05] MEDS: guaiFENesin 12 HR 600 MG TABCR 1200 MG PO (08:41)
[2024-12-05] MEDS: ACIDOPHILUS/BULGARICUS CHEWABLE TABLET 1 TABLET PO ×2 (08:41→12:10)
[2024-12-05] MEDS: GABAPENTIN 100 MG CAPSULE PO (08:41)
--- NOTE | 2024-12-05 10:36 | P.PNINF_ITS ---
Progress Note: A&P Assessment and Plan (1) Lobar pneumonia: Code(s): J18.1 - Lobar pneumonia, unspecified organism Status: Acute (2) Sepsis: Code(s): A41.9 - Sepsis, unspecified organism Status: Acute (3) COPD (chronic obstructive pulmonary disease): Code(s): J44.9 - Chronic obstructive pulmonary disease, unspecified Status: Acute (4) Transaminitis: Code(s): R74.01 - Elevation of levels of liver transaminase levels Status: Acute Plan # Right upper lobe lobar consolidation with acute onset over the last 2 weeks. Possibly associated with recent COVID infection although PCR analysis at this time is negative. Reports productive cough that is sometimes blood tinged. Sputum without evidence of blood since hospitalization -- community-acquired pneumonia. -- dense consolidation also raises the possibility of malignancy. 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 Right middle lobe process appears to have resolved on current CT scan. -- with relatively acute onset of symptoms, lack of consumptive symptoms, and no known TB exposure this diagnosis seems less likely. # Acute sepsis secondary to the above. # Cough with Mild transaminitis along with mild hyponatremia. -- may be associated with Legionella pneumonia although chest x-ray more consist ent with classic bacterial lobar pneumonia. Plan: -- okay to change to oral levofloxacin 750 mg daily and metronidazole 500 mg q.8 hours for 7 additional days. Okay for discharge. -- with negative nasopharyngeal PCR for SARS-CoV-2 she should not require respiratory isolation at this time. -- final antibiotic recommendations reviewed with both patient and her . Patient was seen via video telehealth consultation with the assistance of staff. Chart, data, and patient independently reviewed. Patient was located at [facility] while I was located in my [place] office. Received verbal consent from patient. Subjective Date/time seen: 12/05/24 10:36 Interval history: 11/30/2024: T-max a 100.9? overnight. White blood cell count decreased to 21. Feels better today. Continued cough but improved. Decreased pleuritic right- sided chest pain. 12/01/2024: Remains afebrile. White blood cell count remains elevated but significantly improved from admission. breathing and cough improved. Still with right-sided pleuritic chest pain. 12/05/2024: Afebrile and leukocytosis continues to slowly improve. Primary service requesting final antibiotic recommendations for discharge. Sputum culture: Pending Urine Legionella antigen: Pending Urine pneumococcal antigen: Pending Respiratory pathogen panel by PCR: Negative. Blood cultures 11/28: Pending Review of Systems Review of Systems: All systems reviewed & are unremarkable except as noted in HPI and below Exam Narrative: Awake, alert and interactive. No respiratory distress today. Normocephalic. No conjunctivitis. Appears to be breathing comfortably. Abdomen not significantly distended. No evidence of rash. Objective Data Vital Signs Vital Signs: Vital Signs - 24 hr 12/04/24 11:17 12/04/24 11:22 12/04/24 12:00 Temperature Pulse Rate 93 86 94 Respiratory Rate 16 16 Blood Pressure Pulse Oximetry Oxygen Delivery Oxygen Flow Rate Fraction of Inspired Oxygen 12/04/24 14:00 12/04/24 15:35 12/04/24 15:43 Temperature 98.9 F Pulse Rate 85 90 90 Respiratory Rate 16 16 16 Blood Pressure 116/85 Pulse Oximetry 90 Oxygen Delivery Oxygen Flow Rate Fraction of Inspired Oxygen 12/04/24 16:00 12/04/24 19:53 12/04/24 20:00 Temperature 98.6 F Pulse Rate 90 86 98 Respiratory Rate 16 18 Blood Pressure 124/86 Pulse Oximetry 89 L Oxygen Delivery Oxygen Flow Rate Fraction of Inspired Oxygen 12/04/24 20:00 12/04/24 20:05 12/04/24 20:50 Temperature Pulse Rate 88 90 Respiratory Rate 16 Blood Pressure Pulse Oximetry 92 Oxygen Delivery Nasal Cannula Oxygen Flow Rate 1 Fraction of Inspired Oxygen 12/04/24 22:00 12/05/24 00:00 12/05/24 04:00 Temperature Pulse Rate 89 92 Respiratory Rate Blood Pressure Pulse Oximetry 98 Oxygen Delivery Oxygen Flow Rate 3 Fraction of Inspired Oxygen 12/05/24 04:57 12/05/24 07:27 12/05/24 08:00 Temperature 97.7 F Pulse Rate 87 84 94 Respiratory Rate 17 18 Blood Pressure 137/98 H Pulse Oximetry 95 Oxygen Delivery Oxygen Flow Rate Fraction of Inspired Oxygen Intake/Output Intake/Output: Intake & Output 12/02/24 12/03/24 12/04/24 12/05/24 23:59 23:59 23:59 23:59 Intake Total 1900 1650 2620 350 Output Total 9 Balance 1891 1650 2620 350 Meds/Results Medications: Active Medications Generic Name Dose Route Start Last Admin Trade Name Freq PRN Reason Stop Dose Admin Acetaminophen 650 mg 11/29/24 04:32 12/03/24 15:31 Acetaminophen 325 Mg Tablet PO 650 mg Q6H PRN Administration Pain 1-3 or Fever Hydrocodone Bitart/Acetaminophen 1 tab 11/29/24 04:31 12/05/24 08:40 Hydrocodone/Acetaminophen (*Crx) 5-325 Mg Tablet PO 1 tab Q8H PRN Administration Pain 4-10 Albuterol 2 puff 11/29/24 04:31 11/29/24 09:01 Albuterol Sulfate (*Sp) Aerosol 1 Puff INHALATION 2 puff Q6HRT PRN Administration Shortness Of Breath Albuterol/Ipratropium 3 ml 12/01/24 12:00 12/05/24 07:26 Ipratropium 0.5 Mg/Albuterol Sulfate 2.5 Mg Ampul.Neb 3 Ml INHALATION 3 ml Q4HRT ABIODUN Administration Alprazolam 0.5 mg 11/29/24 04:31 12/02/24 08:29 Alprazolam (*Crx) 0.5 Mg Tablet PO 0.5 mg BID PRN Administration Anxiety Amlodipine Besylate 5 mg 11/29/24 21:50 12/05/24 08:40 Amlodipine Besylate 5 Mg Tablet PO 5 mg DAILY ABIODUN Administration Aspirin 81 mg 11/29/24 09:00 12/05/24 08:40 Aspirin 81 Mg Enteric Tablet PO 81 mg DAILY ABIODUN Administration Enoxaparin Sodium 40 mg 11/29/24 09:00 12/05/24 08:39 Enoxaparin 40 Mg/0.4 Ml Syringe SUB-Q 40 mg DAILY ABIODUN Administration Gabapentin 100 mg 11/29/24 09:00 12/05/24 08:41 Gabapentin 100 Mg Capsule PO 100 mg Q12HR ABIODUN Administration Guaifenesin 1,200 mg 11/29/24 21:00 12/05/24 08:41 Guaifenesin 12 Hr 600 Mg Tabcr PO 1,200 mg Q12HR ABIODUN Administration Lactobacillus Acidophilus 1 tablet 12/04/24 09:00 12/05/24 08:41 Acidophilus/Bulgaricus Chewable Tablet PO 1 tablet QID ABIODUN Administration Levofloxacin 750 mg 12/05/24 09:00 Levofloxacin 750 Mg Tablet PO 12/12/24 09:01 DAILY ABIODUN Lisinopril 20 mg 11/29/24 21:50 12/05/24 08:40 Lisinopril 20 Mg Tablet PO 20 mg QAM ABIODUN Administration Loperamide HCl 2 mg 11/30/24 04:13 12/04/24 14:01 Loperamide Hcl 2 Mg Capsule PO 2 mg PRN PRN Administration Diarrhea Metronidazole 500 mg 12/01/24 14:00 12/05/24 05:36 Metronidazole 500 Mg Tablet PO 12/12/24 22:01 500 mg Q8HR ABIODUN Administration Morphine Sulfate 2 mg 11/30/24 11:29 12/03/24 10:43 Morphine Sulfate (*Crx) 2 Mg/Ml Inj IV PUSH 2 mg Q4H PRN Administration Pain Rated 7-10 Multivitamins/Minerals 1 tablet 11/29/24 21:00 12/04/24 20:51 Multivits W-Fe,Min Chewable Tablet PO 1 tablet HS ABIODUN Administration Pantoprazole Sodium 40 mg 11/29/24 21:00 12/04/24 20:51 Pantoprazole 40 Mg Tablet PO 40 mg HS ABIODUN Administration Phenyleph/Shark Oil/Min Oil/Petrol 1 applic 12/04/24 19:59 Phenyleph/Shark Oil/Mo/Petrol Cream 26 Gm RECTAL DAILY PRN Hemorrhoids Radiology Results: ITS Impressions Chest CTA 11/29/24 07:11 IMPRESSION: 1. Extensive masslike consolidation right upper lobe with surrounding airspace consolidation, consistent with pneumonia. Recommend follow-up CT in 2-3 months following appropriate therapy to exclude underlying mass. 2: Small pericardial effusion. Trace right pleural effusion. Abdomen Ultrasound 11/30/24 09:38 IMPRESSION: 1: Unremarkable limited abdominal ultrasound. Chest X-Ray 12/04/24 11:51 IMPRESSION: 1. Unchanged masslike region of consolidation in the right upper lobe consistent with pneumonia. Recommend radiographic follow-up to resolution. 2. Small right pleural effusion. Labs Labs: Laboratory Results - last 24 hr 12/04/24 12/05/24 10:01 05:44 WBC 12.1 H RBC 2.92 L Hgb 8.9 L Hct 28.7 L MCV 98.3 MCH 30.5 MCHC 31.0 L RDW 13.6 Plt Count 480 H MPV 9.3 Immature Gran % (Auto) 1.3 H Neut % (Auto) 75.7 H Lymph % (Auto) 10.6 L [place] % (Auto) 8.7 H Eos % (Auto) 2.8 Baso % (Auto) 0.9 Lymph # (Auto) 1.28 [place] # (Auto) 1.1 H Eos # (Auto) 0.3 Baso # (Auto) 0.1 Abs Immat Gran (auto) 0.16 H Absolute Neuts (auto) 9.2 H Absolute Nucleated RBC 0.000 Nucleated RBC % 0.0 Sodium 132 L Potassium 3.7 Chloride 98 Carbon Dioxide 29 Anion Gap 5 BUN 11 Creatinine 0.71 Estim Creat Clear Calc 62 Estimated GFR > 60 Glucose 103 Calcium 8.8 Magnesium 1.8 Total Bilirubin 0.2 AST 49 H ALT 37 H Alkaline Phosphatase 106 Total Protein 6.3 Albumin 2.7 L C. difficile (PCR) Negative
--- NOTE | 2024-12-05 10:50 | PCNWS ---
Weekly nutritional screen. Patient is tolerating current Regular diet with adequate intake at 50-100% all meals, reports good appetite and intake. No weight loss reported. No nutritional recommendations at this time.
--- NOTE | 2024-12-05 12:24 | P.DS_ITS ---
DS: Admitting Diagnosis Discharge Date 12/05/2024 Admitting Diagnosis Shortness of breath DS: Discharge Diagnosis Discharge Diagnosis (1) Lobar pneumonia: Code(s): J18.1 - Lobar pneumonia, unspecified organism Status: Acute (2) Transaminitis: Code(s): R74.01 - Elevation of levels of liver transaminase levels Status: Acute (3) Acute hyponatremia: Code(s): E87.1 - Hypo-osmolality and hyponatremia Status: Acute (4) COPD (chronic obstructive pulmonary disease): Code(s): J44.9 - Chronic obstructive pulmonary disease, unspecified Status: Acute (5) Hypertension: Code(s): I10 - Essential (primary) hypertension Status: Chronic (6) Diarrhea: Code(s): R19.7 - Diarrhea, unspecified Status: Acute (7) Acute hypokalemia: Code(s): E87.6 - Hypokalemia Status: Resolved (8) Hypomagnesemia: Code(s): E83.42 - Hypomagnesemia Status: Acute (9) Sepsis: Qualifiers: Sepsis acute organ dysfunction status: unspecified Sepsis type: sepsis due to unspecified organism Qualified Code(s): A41.9 - Sepsis, unspecified organism Code(s): A41.9 - Sepsis, unspecified organism Status: Resolved DS: Summary Hospital Course Hospital Course: # Lobar pneumonia: CTA showing extensive masslike consolidation right upper lobe with surrounding airspace consolidation consistent with pneumonia. MRSA negative * Bronchodilators. increased to Q 4 for patient's continued wheezing per pulmonology * Guaifenesin * incentive spirometry while awake. * sputum culture ordered * influenza/COVID/RSV negative * respiratory panel * Legionella, mycoplasma chlamydia pneumoniae Negative * supplemental oxygen therapy to maintain oxygen 92% on RA but desaturation overnight on apnea study. * Pulmonary consulted * Repeat apnea study reviewed. Requires 3 L at night # Transaminitis: Patient with elevated liver enzymes POA denies any abdominal tenderness * U/S no significant findings * Hepatitis panel with reactive Hep C AB/RNA pending * Trend # Acute hyponatremia: Patient hyponatremic 129 POA Likely secondary to dehydration improving fluids * IV fluids * Trend daily labs * Encourage oral intake # COPD (chronic obstructive pulmonary disease): Patient was previous smoker with history of COPD * Inhalers p.r.n. continued * DuoNebs scheduled * Supplemental oxygen wean as tolerated to maintain 92% # Hypertension: Patient with history of hypertension primary care physician recently discontinued patient's amlodipine and lisinopril * Monitor BP per unit protocol # Diarrhea: Patient with moderate diarrhea * c-diff negative * added probiotic likely secondary to ABX therapy # Acute hypokalemia: Replace and monitor # Hypomagnesemia: Mag 1.7 * trend and replenish as needed # Sepsis: Meeting at SIRS criteria likely secondary to underlying lobar pneumonia recent COVID infection testing positive a week prior but is not currently positive * Infectious disease consulted changed IV antibiotics to cefepime, Flagyl and azithromycin, azithromycin has been completed, ESR 125, WBC peaked at 31.1 downtrending now * sputum culture with routine respiratory jackie * Two sets of blood cultures NGTD q48 hr * trend C-reactive proteins * procalcitonin level 2.1 down to 1.1 * Resolved Code status: Full code per patient DVT prophylaxis: Lovenox Stress ulcer prophylaxis: NA PT/OT notes: Ambulatory with walker Time Spent with Patient Time attestation: Total time spent providing and/or coordinating discharge services: 45 minutes Exam Narrative: GENERAL: The patient is well developed, not in acute distress HEENT: Nonicteric sclerae, PERRLA, EOMI. Oropharynx clear. Moist mucous membranes. Conjunctivae appear well perfused. CHEST: Chest wall is nontender. HEART: Regular rate and rhythm without murmur, rubs, or gallops LUNGS: Coarse breath sounds bilaterally no wheezes bilaterally. no respiratory distress ABDOMEN: Soft, positive bowel sounds, non-tender, no organomegaly. SKIN: No rash, no excessive bruising, petechiae, or purpura. NEUROLOGIC: Cranial nerves II-XII intact, alert and oriented x 3, no gross motor deficits EXTREMITIES: no edema, cyanosis or clubbing DS: Data Data Completed and Pending Labs on day of discharge: Labs from last 24 hours 12/05/24 05:44 WBC 12.1 H RBC 2.92 L Hgb 8.9 L Hct 28.7 L MCV 98.3 MCH 30.5 MCHC 31.0 L RDW 13.6 Plt Count 480 H MPV 9.3 Immature Gran % (Auto) 1.3 H Neut % (Auto) 75.7 H Lymph % (Auto) 10.6 L Rice % (Auto) 8.7 H Eos % (Auto) 2.8 Baso % (Auto) 0.9 Lymph # (Auto) 1.28 Rice # (Auto) 1.1 H Eos # (Auto) 0.3 Baso # (Auto) 0.1 Abs Immat Gran (auto) 0.16 H Absolute Neuts (auto) 9.2 H Absolute Nucleated RBC 0.000 Nucleated RBC % 0.0 Sodium 132 L Potassium 3.7 Chloride 98 Carbon Dioxide 29 Anion Gap 5 BUN 11 Creatinine 0.71 Estim Creat Clear Calc 62 Estimated GFR > 60 Glucose 103 Calcium 8.8 Magnesium 1.8 Total Bilirubin 0.2 AST 49 H ALT 37 H Alkaline Phosphatase 106 Total Protein 6.3 Albumin 2.7 L Preliminary micro results at discharge 11/28/24 23:49 Blood Culture - Preliminary Blood 11/28/24 23:49 Blood Culture - Preliminary Blood 11/30/24 11:27 Fungal Culture - Preliminary Urine Clean Catch Imaging Radiologist's impression: ITS Impressions Chest X-Ray 11/29/24 06:53 Impression: 1: Masslike density right upper lobe, suspicious for malignancy. Correlation with CT chest recommended. 2: Right upper lobe airspace disease, compatible with pneumonia. Chest CTA 11/29/24 07:11 IMPRESSION: 1. Extensive masslike consolidation right upper lobe with surrounding airspace consolidation, consistent with pneumonia. Recommend follow-up CT in 2-3 months following appropriate therapy to exclude underlying mass. 2: Small pericardial effusion. Trace right pleural effusion. Abdomen Ultrasound 11/30/24 09:38 IMPRESSION: 1: Unremarkable limited abdominal ultrasound. Chest X-Ray 12/01/24 06:17 Impression: 1: Right upper lobe airspace consolidation, compatible with pneumonia. Superimposed masslike density present. Cannot exclude underlying malignancy. Chest X-Ray 12/04/24 11:51 IMPRESSION: 1. Unchanged masslike region of consolidation in the right upper lobe consistent with pneumonia. Recommend radiographic follow-up to resolution. 2. Small right pleural effusion. Discharge Plan Discharge Attending physician on discharge: Doc Nolan Consulting providers: Terese Mac; Eamon Chong; Isidro Vance Discharging Clinician: Doc Nolan Anticipated Discharge Date/Time: 12/05/24 12:32 Patient Disposition: Home with Home Health Service Activity: as tolerated Diet: regular Discharge Instructions: Per Care Coordination, patient to discharge with [facility] ([phone]) for PT/OT and intermediate services. Agency will call to arrange initial visit. Patient Instructions: Antibiotic Form Patient Language: British Stand Alone Forms: General Discharge Information Follow-up/Referrals: PHYSICIAN NOT ON STAFF,NONSTAFF [Primary Care Provider] - 1 Week Discharge Medications: New guaifenesin [Mucus Relief ER] 600 mg Tablet Extended Release 12hr 1,200 mg PO Q12HR Qty: 30 0RF umeclidinium-vilanterol [Anoro Ellipta] 62.5-25 mcg/actuation blister with device 1 inh inhalation DAILY Qty: 60 0RF metronidazole 500 mg Tablet 500 mg PO Q8HR Qty: 21 0RF levofloxacin 750 mg tablet 750 mg PO DAILY Qty: 7 0RF Continued alprazolam 0.5 mg tablet 1 tablet PO BID PRN (Reason: Anxiety) lisinopril 20 mg tablet 20 mg PO DAILY amlodipine 5 mg tablet 5 mg PO DAILY hydrocodone-acetaminophen 5-325 mg tablet 1 tablet PO Q8H PRN (Reason: pain) gabapentin 100 mg capsule 100 mg PO Q12H albuterol sulfate 90 mcg/actuation HFA aerosol inhaler 2 puff INHALATION QID PRN (Reason: Shortness Of Breath) pantoprazole 40 mg tablet,delayed release (DR/EC) 40 mg PO HS Centrum Adult 50 Plus 80 mcg Tablet,Chewable 1 tablet PO HS aspirin [Adult Low Dose Aspirin] 81 mg Tablet,Delayed Release (Dr/Ec) 81 mg PO DAILY Date of admission: 11/30/24 10:05 Primary Care Provider: PHYSICIAN NOT ON STAFF,NONSTAFF Admitting Provider: Doc Nolan Attending physician on admission: Doc Nolan Condition: Improved
== END 2024-12-05 14:15 | disposition home health service (06) | DRG 871 ==
LOC: ANHED 11-29 00:35 → ANH3MEDSUR 11-29 08:38
PROVIDERS: Emergency Medicine; Internal Medicine Infectious Disease; Internal Medicine Pulmonary Disease; Nurse Practitioner; Nurse Practitioner Family; Nurse Practitioner Gerontology; Admitting Provider Internal Medicine; Emergency Provider Emergency Medicine; Visit Provider Internal Medicine
DX: A41.9 Sepsis, unspecified organism (principal); J18.1 Lobar pneumonia, unspecified organism; E87.1 Hypo-osmolality and hyponatremia; J44.0 Chronic obstructive pulmonary disease with (acute) lower respiratory infection; I12.9 Hypertensive chronic kidney disease with stage 1 through stage 4 chronic kidney disease, or unspecified chronic kidney disease; N18.9 Chronic kidney disease, unspecified; E87.6 Hypokalemia; E83.42 Hypomagnesemia; R19.7 Diarrhea, unspecified; R74.01 Elevation of levels of liver transaminase levels; M06.9 Rheumatoid arthritis, unspecified; M17.12 Unilateral primary osteoarthritis, left knee; M54.9 Dorsalgia, unspecified; M54.2 Cervicalgia; G89.29 Other chronic pain; F41.9 Anxiety disorder, unspecified; Z20.822 Contact with and (suspected) exposure to COVID-19; Z79.82 Long term (current) use of aspirin; Z79.891 Long term (current) use of opiate analgesic; Z87.891 Personal history of nicotine dependence
CPT/HCPCS: 36415; 36600; 71045; 71046; 71275; 76705; 80053; 80074; 82805; 82948; 83690; 83735; 83880; 84145; 84484; 85018; 85025; 85610; 85652; 85730; 86140; 87040; 87070; 87101; 87205; 87449; 87486; 87493; 87522; 87581; 87637; 87641; 87899; 93005; 93306; 94618; 94640; 94667; 94668; 94762; 96365; 96366; 96367; 96372; 97110; 97116; 97161; 97166; 97530; 97535; 99285; A9270; G0378; J0456; J0692; J0696; J1650; J1836; J2270; J3475; J3480; J7030; J7040; J7050; Q9967

== ENCOUNTER 2024-12-15 09:26 | Outpatient (NON) | payer MEDICARE, SELFPAY ==
--- OUTSIDE RECORDS SUMMARY | 2024-12-15 09:56 | XMS_ITS | Clinical Summary ---
Author Organization [employer] [place] Address [address] [place] [address] Care Team Providers Care Educational Guidance Counselor Name Role Phone Xochitl Duarte MD Primary Care Provider [phone] Allergies Active Allergy Reactions Criticality Noted Date [...] Encounters Date Type Department Care Team Description 12/05/2024 External Device Data [facility] Provider, Abstract 12/05/2024 External Device Data [facility] Provider, Abstract 11/21/2024 External Device Data [facility] Provider, [...] PPO MCR AETNA PPO MCR Care Teams Educational Guidance Counselor Relationship Specialty Start Date End Date Xochitl Duarte MD [address] [place] [id number] PCP - General Internal Medicine 08/14/20
--- OUTSIDE RECORDS SUMMARY | 2024-12-15 09:56 | XMS_ITS | Clinical Summary ---
Author Organization [facility] [address] [place] Address [address] [place] [id number] Care Team Providers Care Bearing Maker Name Role Phone No, Physician Primary Care Provider [phone] Allergies Active Allergy Reactions Criticality Noted Date [...] on file Legal Sex Female 2:25 AM THERAPEUTIC DIETITIAN Gender Identity Not on file Sexual Orientation Not on file Obstetrics History Last Filed Vital Signs Vital Sign Reading Time Taken Comments Blood Pressure 134/96 04/24/2021 9:01 AM THERAPEUTIC DIETITIAN Pulse 54 04/24/2021 8:53 AM THERAPEUTIC DIETITIAN Temperature 36.3 C (97.4 F) 04/24/2021 8:53 AM THERAPEUTIC DIETITIAN Respiratory Rate 16 04/24/2021 8:53 AM THERAPEUTIC DIETITIAN Oxygen Saturation 99% 04/24/2021 8:53 AM THERAPEUTIC DIETITIAN Inhaled Oxygen Concentration - - Weight 68 kg (150 lb) 03/10/2024 10:36 AM THERAPEUTIC DIETITIAN Height 167.6 cm (5' 6) 03/10/2024 10:36 AM THERAPEUTIC DIETITIAN Body Mass Index 24.21 03/10/2024 10:36 AM THERAPEUTIC DIETITIAN Plan of Treatment Health Maintenance Due Date [...] 65+ 2022 Covid-19 Vaccine ( - season) 2024 03/09/2021, 06/21/2020, 06/02/2020 Influenza Vaccine (#1) 2024 , 12/13/2019, 01/03/2019 Insurance AETNA MEDICARE AETNA MEDICARE Care Teams Bearing Maker Relationship Specialty Start Date End Date No, Physician PCP - General 04/24/21
--- OUTSIDE RECORDS SUMMARY | 2024-12-15 09:56 | XMS_ITS | Patient Health Record ---
Author Organization [facility] Address [address] [place] [id number] Care Team Providers Care Fence Supervisor Name Role Phone Xochilt Duarte MD Primary Care Provider Unavail able Garfield Basilio Unavailable [phone] ALLERGIES Allergen (clinical drug ingredient) Drug/Non Drug [...] (primary) hypertension (I10) Active confirmed Essential hypertension ([id number]) Problem Acute kidney failure, unspecified (N17.9) Active confirmed Acute renal failure syndrome ([id number]) PLAN OF TREATMENT Future Test Test Name Order Date Ultrasound : Kidneys 09/11/2021 RENAL ARTERY DUPLEX 09/11/2021 RENAL PANEL 01/17/2022 RENAL PANEL 03/19/2022 Insurance Providers Payer Name Payer Address Payer Phone Subscriber Number Group Number Insured Name Patient Relationship to Insured Coverage Start Date Coverage End Date [facility] [address] [place] [address] [id number] Fara Valencia Self - patient is [...]
[2024-12-15 10:39] LABS: Toxigenic C. Diff NEGATIVE (NEGATIVE)
== END 2024-12-15 09:27 | disposition home or self-care (01) ==
PROVIDERS: Visit Provider Internal Medicine
DX: R19.7 Diarrhea, unspecified (principal)
CPT/HCPCS: 87493

== ENCOUNTER 2025-01-10 16:23 | Outpatient (CLI) | payer MEDICARE, SELFPAY ==
--- NOTE | ~2025-01-10 | CT_ITS ---
EXAMINATION:CT diagnostic chest wo con DATE: 01/10/2025 16:44 INDICATION: Lumbar pneumonia, unspecified organism. TECHNIQUE: Computed tomography (CT) of the chest was performed without intravenous contrast. Automated exposure control and iterative reconstruction technique were employed. The dose-length product (DLP) was 134.93 mGy-cm. COMPARISON: Chest CT 11/28/24 FINDINGS: There is moderate emphysema. There is mild atelectasis bilaterally. There are airspace and groundglass opacities in right upper lobe with interval improvement. There are a few scattered nodules in the lungs measuring up to 4 mm, likely benign. No pleural effusion. The heart size is normal. There are coronary artery calcifications. No pericardial effusion. 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 IMPRESSION: 1. Airspace and groundglass opacities in right lung upper lobe with interval improvement, consistent with pneumonia. 2. Moderate emphysema. Reviewed, dictated and finalized at location E. IMPRESSION: 1. Airspace and groundglass opacities in right lung upper lobe with interval im provement, consistent with pneumonia. 2. Moderate emphysema.
== END 2025-01-10 16:24 | disposition home or self-care (01) ==
PROVIDERS: PCP Internal Medicine; Visit Provider Internal Medicine Pulmonary Disease
DX: R91.8 Other nonspecific abnormal finding of lung field (principal); J43.9 Emphysema, unspecified; J18.1 Lobar pneumonia, unspecified organism
CPT/HCPCS: 71250

== ENCOUNTER 2025-01-17 08:03 | Outpatient (CLI) | payer MEDICARE, SELFPAY ==
--- OUTSIDE RECORDS SUMMARY | 2023-03-05 04:22 | XMS_ITS | Continuity of Care Document ---
Author Organization [facility] Address [address] [facility] [address] [place] [address] Phone Care Team Providers Care Rate Supervisor Name Role Phone Woodrow Mendoza MD Unavailable [...] Providers Copied on Encounter [facility], [address] [address], [place], [address], [place] tel:[phone] [facility] No Information 3 Kelly Troy. [address], [place], [place], [address]. tel:[phone] [facility], [address], [place], [address], [place] tel:[phone] [facility] S/P left knee arthroscopyPri dana osteoarthritis of right knee 3 Kelly Troy. [address], [place], [place], [address]. tel:[phone] Referring Provider: Xochitl Duarte, [address], [place], [address] . tel:[phone] [facility], [address], [place], [address], [place] tel:[phone] [facility] No Information 3 Kelly Troy. [address], [place], [place], [address]. tel:[phone] [facility], [address], [place], [address], [place] tel:[phone] [facility] Tear of medial meniscus of left knee, current, unspecified tear type, subsequent encounterPrima ry osteoarthritis of left knee Jan- 3 Kelly Troy. [address], [place], [place], [address]. tel:[phone] OFFICE/OUTPA TIENT VISIT EST [facility], [address], [place], [address], [place] tel:[phone] [facility] Tear of medial meniscus of left knee, current, unspecified tear type, subsequent encounterPrima ry osteoarthritis of right knee Jan- 3 Kelly Troy. [address], [place], [place], [address]. tel:[phone] Referring Provider: [address], [place], [address] . tel:[phone] [facility], [address], [place], [address], [place] tel:[phone] [facility] Primary osteoarthritis of left kneePatellofem oral arthritis of right knee Sep-1 3 Colin Franny. [address], [place], [place], [address]. tel:[phone] Referring Provider: [address], [place], [address] . tel:[phone] [facility], [address], [place], [address], [place] tel:[phone] [facility] Primary osteoarthritis of left kneePatellofem oral arthritis of right knee Sep-0 6- 3 Colin Franny. [address], [place], [place], [address]. tel:[phone] Referring Provider: [address], [place], [address] . tel:[phone] [facility], [address] [address], [place], [address], [place] tel:[phone] [facility] Right knee pain, unspecified chronicityPate llofemoral arthritis of right kneeTear of medial meniscus of left knee, initial encounterPrima ry osteoarthritis of left knee 3 Cristi Franny. [address], [place], [place], [address]. tel:[phone] Referring Provider: Xochitl Duarte, [address], [place], [address] . tel:[phone] [facility], [address] [facility] [address], [place], [address], [place] tel:[phone] [facility] Unspecified internal derangement of left knee 3 No Information Referring Provider: Woodrow Mendoza, [address], [place], [address] . tel:[phone] OFFICE/OUTPA TIENT VISIT NEW [facility], [address] [facility] [address], [place], [address], [place] tel:[phone] [facility] Internal derangement of left kneeLeft knee pain, unspecified chronicity 3 Kelly Troy. [address], [place], [place], [address]. tel:[phone] Referring Provider: Xochitl Duarte, [address], [place], [address] . tel:[phone] Family History Family Member Type Diagnosis Age At Onset Mother Problem Alive and well Father Problem (finding) Payers Payer name Insurance type Covered green party ID Authoriza tion(s) Medicare E2 OT [id number] [employer] [place] [id number] or after OT [id number] Social History Type Description Quantity Date Captured [...]
--- OUTSIDE RECORDS SUMMARY | 2025-01-12 03:57 | XMS_ITS | Continuity of Care Document ---
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 - Active lisinopril 20 mg tablet take 1 tablet once daily - Active aspirin 81 mg tablet,delayed release take 1 tablet by oral route every day 81 MG - Active Centrum Silver Women 8 mg iron-400 mcg-50 mcg tablet take 1 capsule by oral route every day 1 capsule - Active HYDROCORTISONE AC 30 MG SUPP INSERT 1 SUPPOSITORY BY RECTAL ROUTE 2 TIMES EVERY DAY NEEDED 30 MG - Active gabapentin 100 mg capsule take 1 Capsule by oral route 2 times every day 100 MG - Active permethrin 5 % topical cream [...] THE SAME TIME EACH DAY - Active pantoprazole 40 mg tablet,delayed release take 1 tablet by oral route every day 40 MG - Active PROBIOTIC (unknown strength) take 1 tablet by oral route every day Not Available - Active hydrocodone 5 mg-acetaminophen 325 mg tablet take 1 tablet by oral route every 8 hours as needed for pain 1 tablet - No Longer Active amlodipine 5 mg tablet take 1 tablet by oral route every day 5 MG - No Longer Active Procedures Procedure Date MED LIST DOCD IN [facility] [place] Admin influenza virus vac FLU VACC PRSV FREE INC ANTIG Covid Vaccine Admin, Single Dose 2024 [employer] Com[employer] tri-sucrose COVID Vacci ne 30 mcg/ OFFICE UIMUH-OBA-ASGYMWEU BODY MASS INDEX DOCD SYST BP GE 130 - 139MM HG DIAST BP 80-89 MM HG MED LIST DOCD IN [facility] [place] BASIC METABOLIC PANEL(BMP) CBC, INC PLATELETS AND DIFFERENTIAL ROUTINE VENIPUNCTURE Transitional Care- First 7 Days Of Disch arge BODY MASS INDEX DOCD SYST BP LT 130 MM HG DIAST BP < 80 MM HG DSCHRG MED/CURRENT MED MERGE MED LIST DOCD IN [facility] [place] CBC, INC PLATELETS AND DIFFERENTIAL COMPREHEN METABOLIC PANEL CMP URINALYSIS W MICROSCOPIC (UA) ROUTINE VENIPUNCTURE INTRAVENOUS INFUSION, HYDRATION; INITIAL , 31 MINUT NSALINE 1000CC OFFICE [id number]-[id number]-[id number] BODY MASS INDEX DOCD SYST BP LT 130 MM HG DIAST BP < 80 MM HG MED LIST DOCD IN [facility] [place] FALL RISK ASSESSMENT DOC'D PRES/ABSN URINE INCON ASSESS BASIC METABOLIC PANEL(BMP) CBC, INC PLATELETS AND DIFFERENTIAL LIPID PANEL ROUTINE VENIPUNCTURE OFFICE JMXRH-AJK-ADELEFIB PPPS, subseq visit BODY MASS INDEX DOCD SYST BP LT 130 MM HG DIAST BP 80-89 MM HG MED LIST DOCD IN [facility] [place] URINALYSIS W MICROSCOPIC (UA) ROUTINE VENIPUNCTURE OFFICE BEJFC-DCQ-[id number] BODY MASS INDEX DOCD SYST BP GE 130 - 139MM HG DIAST BP 80-89 MM HG Removal Impacted Cerumen Irrigation/Lava ge, Unilateral MED LIST DOCD IN [facility] [place] CBC, INC PLATELETS AND DIFFERENTIAL COMPREHEN METABOLIC PANEL CMP ROUTINE VENIPUNCTURE OFFICE ELNXC-MUU-[id number] BODY MASS INDEX DOCD SYST BP LT 130 MM HG DIAST BP < 80 MM HG BASIC METABOLIC PANEL(BMP) CBC, INC PLATELETS AND DIFFERENTIAL ROUTINE VENIPUNCTURE OFFICE KKOKU-ZZF-CKWYGFQB BODY MASS INDEX DOCD SYST BP LT 130 MM HG DIAST BP < 80 MM HG Chest Xray, 2 Views OFFICE MECPP-ZIQ-EIDJFKBQ BODY MASS INDEX DOCD SYST BP LT 130 MM HG DIAST BP < 80 MM HG CBC, INC PLATELETS AND DIFFERENTIAL COMPREHEN METABOLIC PANEL CMP LIPID PANEL VITAMIN D, 25-HYDROXY ROUTINE VENIPUNCTURE OFFICE XPUUC-EPC-NOMBPHQD BODY MASS INDEX DOCD SYST BP LT 130 MM HG DIAST BP < 80 MM HG REMOVAL IMPACTED CERUMEN REQUIRING INSTR UMENTATION Covid Vaccine Admin, Single Dose 2023 [employer] Comirnaty tri-sucrose COVID Vacci ne 30 mcg/ OFFICE JYWPY-MNA-KJTWBQBK BODY MASS INDEX DOCD SYST BP >= 140 MM HG6 IT DIAST BP >= 90 MM HG EKG (ELECTROCARDIOGRAM) OFFICE DBEOW-HHM-LKWDODQL BODY MASS INDEX DOCD SYST BP >= 140 MM HG6 IT DIAST BP >= 90 MM HG BASIC METABOLIC PANEL(BMP) CBC, INC PLATELETS AND DIFFERENTIAL SARS-CoV-2/Flu/RSV (all targets) 2023 THYROID STIMULATION HORMONE(TSH) 2023 URINALYSIS W MICROSCOPIC (UA) ROUTINE VENIPUNCTURE OFFICE ZKHKC-QFB-XEJRGSCP BODY MASS INDEX DOCD SYST BP LT 130 MM HG DIAST BP 80-89 MM HG OFFICE WYQLM-LIP-SZZJWNEI PPPS, subseq visit BODY MASS INDEX DOCD SYST BP LT 130 MM HG DIAST BP 80-89 MM HG URINALYSIS, REFLEX (UA) NSALINE 1000CC INTRAVENOUS INFUSION, HYDRATION; INITIAL , 31 MINUT INTRAVENOUS INFUSION, HYDRATION; EACH AD DITIONAL H OFFICE JZDIF-ZEI-KUEIYNKN SYST BP LT 130 MM HG DIAST BP < 80 MM HG FALL RISK ASSESSMENT DOC'D PRES/ABSN URINE INCON ASSESS Clin depression screen doc CBC, INC PLATELETS AND DIFFERENTIAL COMPREHEN METABOLIC PANEL CMP FERRITIN LEVEL ROUTINE VENIPUNCTURE NSALINE 1000CC INTRAVENOUS INFUSION, HYDRATION; INITIAL , 31 MINUT OFFICE GMTWS-SJQ-LOLWULRH SYST BP LT 130 MM HG DIAST BP < 80 MM HG CBC, INC PLATELETS AND DIFFERENTIAL FERRITIN LEVEL ROUTINE VENIPUNCTURE OFFICE QUKSF-UVD-ZCEATNUS SYST BP >= 140 MM HG6 IT DIAST BP 80-89 MM HG BASIC METABOLIC PANEL(BMP) CBC, INC PLATELETS AND DIFFERENTIAL ROUTINE VENIPUNCTURE Transitional Care- First 7 Days Of Disch arge SYST BP >= 140 MM HG6 IT DIAST BP < 80 MM HG DSCHRG MED/CURRENT MED MERGE BASIC METABOLIC PANEL(BMP) CBC, INC PLATELETS AND DIFFERENTIAL FERRITIN LEVEL VITAMIN D, 25-HYDROXY ROUTINE VENIPUNCTURE OFFICE TLLDE-VDO-MIBYHTEQ SYST BP LT 130 MM HG DIAST BP < 80 MM HG EKG (ELECTROCARDIOGRAM) PULSE OXIMETRY, MULTIPLE Admin influenza virus vac FLU VACC PRSV FREE INC ANTIG OFFICE VCOAT-UNU-XJQCDESK SYST BP LT 130 MM HG DIAST BP >= 90 MM HG Chest Xray, 2 Views OFFICE [id number]-OHT-DTQFOQZI SYST BP GE 130 - 139MM HG DIAST BP < 80 MM HG OFFICE XQVOR-OBC-RMMNODWM SYST BP >= 140 MM HG6 IT [...] MEDICARE Pneumococcal Conjugate Vaccine (PCV20) J OFFICE ZCUGM-FZK-KPULORLH SYST BP LT 130 MM HG DIAST BP < 80 MM HG INIT PREVENT PHYS EXAM; LIMITED TO NEW B ENEFICIARY BASIC METABOLIC PANEL(BMP) CBC, INC PLATELETS AND DIFFERENTIAL ROUTINE VENIPUNCTURE INTRAVENOUS INFUSION, HYDRATION; INITIAL , 31 MINUT NSALINE 1000CC OFFICE VLXQK-KKC-TMBPXSLQ SYST BP LT 130 MM HG DIAST BP < 80 MM HG DXA BONE DENSITY, AXIAL SCREENING MAMMOGRAM (CAD) Screening Digital Breast Tomosynthesis M OFFICE PMZCN-BSD-LNSVWTJF BASIC METABOLIC PANEL(BMP) ROUTINE VENIPUNCTURE X-RAY EXAM OF LUMBAR SPINE, A/P & LAT De KENALOG 10 MG KENALOG 10 MG ASP/INJ MAJOR JOINTOR BURSA, SHOULDER, H IP,KNEE W/O US GUIDANCE OFFICE HKZIG-FYW-MSDVCFTD IMMUN ADMIN (INC PERCUTANEOUS) SINGLE, F IRST INJ FLU VAC NO PRSV 4 IVA, 0.5mL DOSAGE OFFICE QRPEL-RRR-FYTLWIEX DUPLEX SCAN OF ABD, PELV, SCROT, COMPLET E ULTRASOUND RETROPERITONEAL ( AORTA, RENAL, NODES) REAL TIME W/ DOCUMENTATION, CO DUPLEX SCAN LOWER EXTREMITY EXTREMITY STUDY/BILATERAL (VENECIA) 022 OFFICE IUYQV-WPV-KZASZULK BASIC METABOLIC PANEL(BMP) ROUTINE VENIPUNCTURE OFFICE ANHTJ-YQV-XFBABRGG BASIC METABOLIC PANEL(BMP) ROUTINE VENIPUNCTURE BP OFFICE/OUTPATIENT VISIT EST 22 OFFICE PAOYE-BVI-CAIMBOIZ CBC, INC PLATELETS AND DIFFERENTIAL COMPREHEN METABOLIC PANEL CMP ROUTINE VENIPUNCTURE INTRAVENOUS INFUSION, HYDRATION; INITIAL , 31 MINUT NSALINE 1000CC BASIC METABOLIC PANEL(BMP) ROUTINE VENIPUNCTURE OFFICE LXPLS-UKO-YRHUVJGI KENALOG 10 MG KENALOG 10 MG ASP/INJ MAJOR JOINTOR BURSA, SHOULDER, H IP,KNEE W/O US GUIDANCE X-RAY EXAM OF KNEES OFFICE PWQES-YFO-AUCDSDYS BASIC METABOLIC PANEL(BMP) ROUTINE VENIPUNCTURE OFFICE JFVMY-LHP-ENAQJHTN BASIC METABOLIC PANEL(BMP) ROUTINE VENIPUNCTURE IMMUN ADMIN (INC PERCUTANEOUS) SINGLE, F IRST INJ FLU VACC PRSV FREE INC ANTIG OFFICE MGIYA-FYT-XSOAWAHK BASIC METABOLIC PANEL(BMP) ROUTINE VENIPUNCTURE OFFICE KAANF-FJK-IXCODOYR OFFICE CESDD-FVZ-SGRZLWVT OFFICE OMHDF-MEL-MSPERGCL BASIC METABOLIC PANEL(BMP) PARATHYROID HORMONE (PTH) URIC ACID, (S) VITAMIN D, 25-HYDROXY ROUTINE VENIPUNCTURE OFFICE XGWGL-TRS-PEEMWJUZ IMMUN ADMIN (INC PERCUTANEOUS) SINGLE, F IRST [...] DISCUSSION BASIC METABOLIC PANEL(BMP) ROUTINE VENIPUNCTURE OFFICE TYDUN-NAK-YYAFFXKA CT ABD&PELV 1+ SECTION/REGNS LOW OSMOLAR CONTRAST (300 TO 399 MG IODI NE) TISSUE EXAM BY PATHOLOGIST SCREENING COLONOSCOPY (NOT HIGH RISK) Jorge A UPPER GI ENDOSCOPY BIOPSY CBC, INC PLATELETS AND DIFFERENTIAL COMPREHEN METABOLIC PANEL CMP 9 URINALYSIS, REFLEX (UA) ROUTINE VENIPUNCTURE OFFICE YVTJT-ABG-EKNRJMQH FERRITIN LEVEL COMPREHEN METABOLIC PANEL CMP 9 ROUTINE VENIPUNCTURE OFFICE PEBHR-FFK-QUQTJGRV X-RAY EXAM OF FOOT OFFICE IDFIQ-CSC-ECENQGLR Advance Directives Directive Yes / No Effective [...] Diagnoses Date Provider Providers Copied on Encounter [employer], [address], [place], [place], [address] , tel:[phone] [facility] IM No Information 5 Felicia Leung. [address], [place], [place], [address], . tel:[phone] OFFICE QLFEH-JBC-QGQ [facility] [employer], [address] [place] [address], [id number] , tel:[phone] [facility] IM Chronic Conditions (chief complaint) Hypertensive chronic kidney disease with stage 1 through stage 4 chronic kidney disease, or unspecified chronic kidney diseaseRight lower lobe lung massOther emphysemaPneumo river of right upper lobe due to infectious organismStage 3a chronic kidney diseaseGenerali zed osteoarthritis 5 Felicia Leung. [address], [place], [place], [address], . tel:[phone] Referring Provider: Xochitl Perez, [address], [place], [address] . tel:[phone] [facility], [address], [place], [place], [address] , tel: [phone] [facility] No Information Sep-1 5-202 5 Cizek Xochitl. [address], [place], [place], [address], [place]. tel: [phone] [facility], [address], [place], [place], [address] , tel: [phone] [facility] IM Acute diarrhea Sep-1 - 5 Cizek Xochitl. [address], [place], [place], [address], [place]. tel: [phone] Transitional Care- First 7 Days Of Discharge [facility], [address], [place], [place], [address] , tel: [phone] [facility] IM Other emphysemaHypert ensive chronic kidney disease with stage 1 through stage 4 chronic kidney disease, or unspecified chronic kidney diseaseStage 3a chronic kidney diseaseRight lower lobe lung massPneumonia of right upper lobe due to infectious organismLeukocy tosis, unspecified Sep-0 9- 5 Cizek Xochitl. [address], [place], [place], [address], [place]. tel:[phone] Referring Provider: Xochitl Perez, [address], [place], [address] . tel:[phone] [facility], [address], [place], [place], [address] , tel: [phone] [facility] IM No Information Sep-0 8- 5 Cizek Xochitl. [address], [place], [place], [address], [place]. [phone] [facility], [address], [place], [place], [address] , [place] tel: [phone] [facility] No Information Sep-0 3-202 5 Cizek Xochitl. [address], [place], [place], [address], [place]. tel:[phone] Referring Provider: Xochitl Perez, [address], [place], [address] . tel:[phone] OFFICE IWCRW-OWI-SLX [facility], [address], [place], [place], [address] , tel:[phone] [facility] IM acute visit (chief complaint) Other fatigueCOVID-19 Symptomatic hypotensionBlee ding hemorrhoids 5 Chadwick Turner. [address], [place], [place], [address], . tel:[phone] Referring Provider: Xochitl Perez, [address], [place], [address] . tel:[phone] OFFICE QDRCX-IKT-RSJ [facility], [address], [place], [place], [address] , tel:[phone] [facility] Chronic Conditions (chief complaint) Hypertensive chronic kidney disease with stage 1 through stage 4 chronic kidney disease, or unspecified chronic kidney diseaseStage 3a chronic kidney diseaseBilatera l primary osteoarthritis of kneeOther emphysemaAthero sclerosis of aortaIron deficiency anemia, unspecified iron deficiency anemia typeThoracic aortic aneurysm, without rupture, unspecifiedGene ralized osteoarthritisM edicare annual wellness visit, subsequentUrina ry frequency 5 Felicia Leung. [address], [place], [place], [address], [place]. [phone] Referring Provider: Xochitl Perez, [address], [place], [address] . tel:[phone] [facility], [address], [place], [place], [address] , tel:[phone] [facility] IM Encounter for screening for malignant neoplasm of colon 5 Felicia Leung. [address], [place], [place], [address], . tel:[phone] OFFICE COQQO-CUV-FDZ [facility], [address], [place], [place], [address] , tel:[phone] [facility] IM acute visit (chief complaint)C hronic Conditions (chief complaint) Bleeding hemorrhoidsAcut e UTI (urinary tract infection)Impac archie cerumen of right earEncounter for screening for malignant neoplasm of colonHypertensi ve chronic kidney disease with stage 1 through stage 4 chronic kidney disease, or unspecified chronic kidney diseaseStage 3a chronic kidney diseaseEncounte r for screening for malignant neoplasm of colon 5 Chadwick Turner. [address], [place], [place], [address], [place]. [phone] Referring Provider: Xochitl Perez, [address], [place], [address] . tel:[phone] [employer], [address], [place], [place], [address] , [place] tel: [phone] [facility] IM No Information 5 Felicia Leung. [address], [place], [place], [address], [place]. tel:[phone] OFFICE GASLL-UJC-NCG [facility], [address], [place], [place], [address] , [place] tel: [phone] [facility] IM acute visit (chief complaint)C hronic Conditions (chief complaint) LLQ abdominal painChange in stoolRectal fissureCoughing up bloodHypertensi ve chronic kidney disease with stage 1 through stage 4 chronic kidney disease, or unspecified chronic kidney diseaseStage 3a chronic kidney diseaseRight lower lobe lung massBilateral primary osteoarthritis of knee 5 Chadwick Turner. [address], [place], [place], [address], [place]. tel:[phone] Referring Provider: Xochitl Perez, [address], [place], [address] . tel:[phone] [facility], [address], [place], [place], [address] , [place] tel: [phone] [facility] No Information 5 [employer]. [address] [facility], [address], [place], [place], [facility], . [phone] [employer], [address], [place], [place], [address] , tel: [phone] [facility] Other emphysema 5 Felicia Leung. [address], [place], [place], [address], . tel:[phone] [facility], [address], [place], [place], [address] , tel: [phone] [facility] No Information 5 Felicia Leung. [address], [place], [place], [address], [place]. tel:[phone] [facility], [address], [place], [place], [address] , tel: [phone] [facility] No Information 5 Felicia Leung. [address], [place], [place], [address], . tel:[phone] OFFICE KPSST-CGP-UIJ [facility], [address], [place], [place], [address] , tel: [phone] [facility] IM Chronic Conditions (chief complaint) Other emphysemaHypert ensive chronic kidney disease with stage 1 through stage 4 chronic kidney disease, or unspecified chronic kidney diseaseStage 3a chronic kidney diseaseIron deficiency anemia, unspecified iron deficiency anemia typeAcute pneumoniaRight lower lobe lung massAtheroscler osis of aortaThoracic aortic aneurysm, without rupture, unspecifiedBila teral primary osteoarthritis of knee 5 Felicia Leung. [address], [place], [place], [address], . tel:[phone] Referring Provider: Xochitl Perez, [address], [place], [address] . tel:[phone] OFFICE RSIIC-UNE-QNQ [facility], [address], [place], [place], [address] , tel: [phone] [facility] IM acute visit (chief complaint)C hronic Conditions (chief complaint) Acute pneumoniaEssent ial (primary) hypertensionOth er emphysema 5 Chadwick Turner. [address], [place], [place], [address], . tel:[phone] Referring Provider: Xochitl Perez, [address], [place], [address] . tel:[phone] OFFICE AMSTP-TGK-HIN [facility], [address], [place], [place], [address] , tel:[phone] [facility] Chronic Conditions (chief complaint) Stage 3a chronic kidney diseaseHyperten sive chronic kidney disease with stage 1 through stage 4 chronic kidney disease, or unspecified chronic kidney diseaseAtherosc lerosis of aortaOther emphysemaIron deficiency anemia, unspecified iron deficiency anemia typeActinic keratosisImpact ed cerumen of both earsVaginal drynessScreenin g mammogram for breast cancer 4 [employer]. [address] [facility], [address], [place], [place], [facility], . tel:[phone] Referring Provider: Xochitl Perez, [address], [place], [address] . tel:[phone] [facility], [address], [place], [place], [address] , tel:[phone] [facility] No Information 4 Cizek Xochitl. [address], [place], [place], [address], [place]. tel:[phone] [facility], [address], [place], [place], [address] , tel:[phone] [facility] No Information 4 Cizek Xochitl. [address], [place], [place], [address], [place]. tel:[phone] OFFICE MIEXR-TMU-XBH [facility], [address], [place], [place], [address] , [place] tel:[phone] [facility] Chronic Conditions (chief complaint) Hypertensive chronic kidney disease with stage 1 through stage 4 chronic kidney disease, or unspecified chronic kidney diseaseStage 3a chronic kidney diseaseFollicul itisNasal sore 4 [employer]. [address] [facility], [address] [place] [address], [facility], . tel:[phone] Referring Provider: Xochitl Perez, [address], [place], [address] . tel:[phone] OFFICE XIZLB-COV-XUG [facility], [address], [place], [place], [address] [place] [address] , tel:[phone] [facility] Hypertensive chronic kidney disease with stage 1 through stage 4 chronic kidney disease, or unspecified chronic kidney diseaseStage 3a chronic kidney disease 4 [employer]. [address] [facility], [address] [place] [address], [facility], . [phone] Referring Provider: Xochitl Perez, [address], [place], [address] . tel:[phone] OFFICE FUODP-MYY-MKC [facility], [address], [place], [place], [address] , tel:[phone] [facility] Chronic Conditions (chief complaint) Hypertensive chronic kidney disease with stage 1 through stage 4 chronic kidney disease, or unspecified chronic kidney diseaseStage 3a chronic kidney diseaseAcute cystitis without hematuriaFatigu e, unspecified typeSymptoms of upper respiratory infection (URI)Intermitte nt constipation 4 [employer]. [address] [facility], [address], [facility], . tel:[phone] Referring Provider: Xochitl Perez, [address], [place], [address] . tel:[phone] OFFICE XJRKW-REI-UVW [facility], [address], [place], [place], [address] , tel:[phone] [facility] Medicare preventive (chief complaint)M edicare preventive (chief complaint)C hronic Conditions (chief complaint) Hypertensive chronic kidney disease with stage 1 through stage 4 chronic kidney disease, or unspecified chronic kidney diseaseStage 3a chronic kidney diseaseMedicare annual wellness visit, subsequentAther osclerosis of aortaThoracic aortic aneurysm, without rupture, unspecifiedOste openia of multiple sitesAcute cystitis without hematuria 4 Felicia Leung. [address], [place], [place], [address], . tel:[phone] Referring Provider: Xochitl Perez, [address], [place], [address] . tel:[phone] OFFICE INQDW-JNY-WRD [facility], [address], [place], [place], [address] , tel: [phone] [facility] Chronic Conditions (chief complaint)c hronic conditions (chief complaint) Hypotension, unspecified hypotension typeHypertensiv e chronic kidney disease with stage 1 through stage 4 chronic kidney disease, or unspecified chronic kidney diseaseStage 3a chronic kidney diseaseUrinary frequencyAbnorm al urinalysis 4 Felicia Leung. [address], [place], [place], [address], . [phone] Referring Provider: Xochitl Perez, [address], [place], [address] . tel:[phone] OFFICE TDTEK-TZY-MTW [facility], [address], [place], [place], [address] , tel: [phone] [facility] Chronic Conditions (chief complaint) Hypertensive chronic kidney disease with stage 1 through stage 4 chronic kidney disease, or unspecified chronic kidney diseaseStage 3a chronic kidney diseaseOther emphysemaIron deficiency anemia, unspecified iron deficiency anemia typeHypotension , unspecified hypotension type 4 Felicia Leung. [address], [place], [place], [address], . tel:[phone] Referring Provider: Xochitl Perez, [address], [place], [address] . tel:[phone] [facility], [address], [place], [place], [address] , tel: [phone] [facility] No Information 4 Cizek Xochitl. [address], [place], [place], [address], . [phone] [facility], [address], [place], [place], [address] , tel: [phone] [facility] Urinary frequency August-0 4 Cizek Xochitl. [address], [place], [place], [address], . tel:[phone] OFFICE FWDMA-TWI-KQY RENETTA [facility], [address], [place], [place], [address] , tel: [phone] [facility] Chronic Conditions (chief complaint) Hypertensive chronic kidney disease with stage 1 through stage 4 chronic kidney disease, or unspecified chronic kidney diseaseStage 3a chronic kidney diseaseOther emphysemaIron deficiency anemia, unspecified iron deficiency anemia type 4 Cizek Xochitl. [address], [place], [place], [address], . tel:[phone] Referring Provider: Xochitl Perez, [address], [place], [address] . tel:[phone] Transitional Care- First 7 Days Of Discharge [facility], [address], [place], [place], [address] , tel: [phone] [facility] Chronic Conditions (chief complaint) Hypertensive chronic kidney disease with stage 1 through stage 4 chronic kidney disease, or unspecified chronic kidney diseaseStage 3a chronic kidney diseaseAcute cystitis without hematuriaHypona tremiaHypokalem iaLeukocytosis, unspecified type 4 Cizek Xochitl. [address], [place], [place], [address], [place]. [phone] Referring Provider: Xochitl Perez, [address], [place], [address] . tel:[phone] [facility], [address], [place], [place], [address] , tel: [phone] [facility] No Information 4 Cizek Xochitl. [address], [place], [place], [address], . tel:[phone] Referring Provider: Xochitl Perez, [address], [place], [address] . tel:[phone] OFFICE OBUQE-VSI-WPC [facility], [address], [place], [place], [address] , tel:[phone] [facility] Chronic Conditions (chief complaint) Hypertensive chronic kidney disease with stage 1 through stage 4 chronic kidney disease, or unspecified chronic kidney diseaseStage 3a chronic kidney diseaseBilatera l primary osteoarthritis of kneeIron deficiency anemia, unspecified iron deficiency anemia typeOther emphysemaEssent ial (primary) hypertension 3 Felicia Leung. [address], [place], [place], [address], [place]. tel:[phone] Referring Provider: Xochitl Perez, [address], [place], [address] . tel:[phone] OFFICE KVZQA-VCB-ZZO [facility], [address], [place], [place], [address] , [phone] [facility] Chronic Conditions (chief complaint) Other emphysemaHypert ensive chronic kidney disease with stage 1 through stage 4 chronic kidney disease, or unspecified chronic kidney diseaseStage 3a chronic kidney diseaseBilatera l primary osteoarthritis of kneeHypoxia 3 Felicia Leung. [address], [place], [place], [address], [place]. tel:[phone] Referring Provider: Xochitl Perez, [address], [place], [address] . tel:[phone] OFFICE ATNDO-GVE-GEF [facility], [address], [place], [place], [address] , [phone] [facility] Chronic Conditions (chief complaint) Other emphysemaHypoxi aPain in left knee 3 Felicia Leung[address], [place], [place], [address], [place]. [phone] Referring Provider: Xohcitl Perez, [address], [place], [address] . tel:[phone] OFFICE OWCIY-MSR-NMK [facility], [address], [place], [place], [address] , tel: [phone] [facility] IM acute visit (chief complaint) Hypertensive chronic kidney disease with stage 1 through stage 4 chronic kidney disease, or unspecified chronic kidney diseaseStage 3a chronic kidney diseasePain in left kneePain in right kneeGastroesoph ageal reflux disease with esophagitis without hemorrhage 3 Nohemi Mckeon. [address], [place], [place], [address], . tel:[phone] Referring Provider: Xochitl Perez, [address], [place], [address] . tel:[phone] [facility], [address], [place], [place], [address] , tel: [phone] [facility] No Information 3 Km Stokes. [address], [address], [address], . tel:[phone] Referring Provider: Xochitl Perez, [address], [place], [address] . tel:[phone] [facility], [address], [place], [place], [address] , tel: [phone] [facility] No Information 3 Maikel Emil. [address] [place], [address], [place]. [phone] Referring Provider: Xochitl Perez, [address], [place], [address] . tel:[phone] [facility], [address], [place], [place], [address] , tel: [phone] [facility] IM Iron deficiency anemia, unspecified iron deficiency anemia type 3 Felicia Leung. [address], [place], [place], [address], . tel:[phone] OFFICE KROBE-OXR-UDV [facility], [address], [place], [place], [address] , tel:[phone] [facility] Medicare preventive (chief complaint)C hronic Conditions (chief complaint) Hypertensive chronic kidney disease with stage 1 through stage 4 chronic kidney disease, or unspecified chronic kidney diseaseStage 3a chronic kidney diseaseOther emphysemaAthero sclerosis of aortaSenile purpuraMedicare annual wellness visit, subsequentOsteo penia of multiple sitesAnemia, unspecified typeRight wrist fracture, sequelaImpacted cerumen, bilateralMild cognitive impairment 3 Felicia Leung. [address], [place], [place], [address], . tel:[phone] Referring Provider: Xochitl Perez, [address], [place], [address] . tel:[phone] OFFICE RBSXG-AGB-KPE [facility], [address], [place], [place], [address] , [place] tel:[phone] [facility] acute visit (chief complaint) Diarrhea, unspecified typeHypertensiv e chronic kidney disease with stage 1 through stage 4 chronic kidney disease, or unspecified chronic kidney diseaseStage 3a chronic kidney disease 3 Nohemi Mckeon. [address], [place], [place], [address], [place]. tel:[phone] Referring Provider: Xochitl Perez, [address], [place], [address] . tel:[phone] [facility], [address], [place], [place], [address] , [place] tel:[phone] [facility] No Information 3 Felicia Thakkar [address], [place], [address], . tel:[phone] Referring Provider: Xochitl Perez, [address], [place], [address] . tel:[phone] OFFICE TMAZD-OQE-XJH [facility], [address], [place], [place], [address] , tel: [phone] [facility] Chronic Conditions (chief complaint) Hypertensive chronic kidney disease with stage 1 through stage 4 chronic kidney disease, or unspecified chronic kidney diseaseStage 3a chronic kidney diseasePeripher al vascular diseaseAtherosc lerosis of aortaOther emphysema 3 Felicia Leung. [address], [place], [place], [address], . [phone] Referring Provider: Xochitl Perez, [address], [place], [address] . tel:[phone] OFFICE PAKRU-XXD-CLJ [facility], [address], [place], [place], [address] , tel: [phone] [facility] Chronic Conditions (chief complaint) Hypertensive chronic kidney disease with stage 1 through stage 4 chronic kidney disease, or unspecified chronic kidney diseaseStage 3a chronic kidney diseasePain in right kneePain in left kneeOther chronic painLumbar radiculopathy 2 Felicia Leung. [address], [place], [place], [address], . [phone] Referring Provider: Xochitl Perez, [address], [place], [address] . tel:[phone] [facility], [address], [place], [place], [address] , tel:[phone] [facility] No Information 2 Felicia Leung. [address], [place], [place], [address], . tel:[phone] Referring Provider: Xochitl Perez, [address], [place], [address] . tel:[phone] OFFICE [facility], [address], [place], [place], [address] , tel:[phone] [facility] Chronic Conditions (chief complaint) Hypertensive chronic kidney disease with stage 1 through stage 4 chronic kidney disease, or unspecified chronic kidney diseaseStage 3a chronic kidney diseaseLumbar radiculopathy 2 Felicia Leung. [address], [place], [place], [address], [place]. tel:[phone] Referring Provider: Xochitl Perez, [address], [place], [address] . tel:[phone] [facility], [address], [place], [place], [address] , [phone] [facility] No Information 2 Brenna Stokes. [address], [place], [place], [address], [place]. tel:[phone] Referring Provider: Garfield Basilio, [address] [facility] [address], [place], [address]. tel:[phone] [facility], [address], [place], [place], [address] , [phone] [facility] No Information 2 Jaleel Jones. [address], [place], [place], [address], [place]. tel:[phone] Referring Provider: Xochitl Perez, [address], [place], [address] . tel:[phone] OFFICE BFFWL-MNT-UDF [facility], [address], [place], [place], [address] , [phone] [facility] Hypertensive chronic kidney disease with stage 1 through stage 4 chronic kidney disease, or unspecified chronic kidney diseaseStage 3a chronic kidney diseaseAtherosc lerosis of aortaPeripheral vascular disease 2 Felicia Leung. [address], [place], [place], [address], [place]. tel:[phone] Referring Provider: Xochitl Perez, [address], [place], [address] . tel:[phone] OFFICE ETGCU[facility]YKC[facility], [address], [place], [place], [address] , tel: [phone] [facility] IM acute visit (chief complaint) Superficial phlebitisBenign essential hypertension Apr-2 2 Nohemi Linda. [address], [place], [place], [address], . tel:[phone] Referring Provider: Xochitl Perez, [address], [place], [address] . tel:[phone] OFFICE/OUTPAT IENT VISIT [facility], [address], [place], [place], [address] , tel: [phone] [facility] DehydrationHype rtensive chronic kidney disease with stage 1 through stage 4 chronic kidney disease, or unspecified chronic kidney disease Apr-1 2 Felicia Leung. [address], [place], [place], [address], [place]. tel:[phone] Referring Provider: Xochitl Perez, [address], [place], [address] . tel:[phone] OFFICE TUKFX-YFH-JQE [facility], [address], [place], [place], [address] , tel: [phone] [facility] Chronic Conditions (chief complaint) Acute UTIDehydrationB enign hypertensive renal diseaseStage 3a chronic kidney disease Apr-0 2 Felicia Leung. [address], [place], [place], [address], [place]. tel:[phone] Referring Provider: Xochitl Perez, [address], [place], [address] . tel:[phone] OFFICE HATUM-HXN-VBW [facility], [address], [place], [place], [address] , tel:[phone] [facility] Chronic Conditions (chief complaint) Benign hypertensive renal diseaseOther emphysemaStage 3a chronic kidney diseaseDDD (degenerative disc disease), cervicalBilater al primary osteoarthritis of knee Mar-0 2-202 2 Cidawit Leung. [address], [place], [place], [address], . tel:[phone] Referring Provider: Xochitl Perez, [address], [place], [address] . tel:[phone] OFFICE EVBMO-JHJ-PKT [facility], [address], [place], [place], [address] , tel:[phone] [facility] Chronic Conditions (chief complaint) Benign hypertensive renal diseaseStage 3a chronic kidney diseaseOther emphysemaDDD (degenerative disc disease), cervical 1 Fel[address]ung[address], [place], [place], [address], . tel:[phone] Referring Provider: Xochitl Perez, [address], [place], [address] . tel:[phone] OFFICE HATFL-HTU-CDD [facility], [address], [place], [place], [address] , tel:[phone] [facility] Chronic Conditions (chief complaint) Benign hypertensive renal diseaseStage 3a chronic kidney diseaseThoracic aortic aneurysm without rupture 1 Felicia Leung[address], [place], [place], [address], [place]. tel:[phone] Referring Provider: Xochitl Perez, [address], [place], [address] . tel:[phone] OFFICE JGZZJ-YSC-DOD [facility], [address], [place], [place], [address] , tel:[phone] [facility] Chronic Conditions (chief complaint) Benign hypertensive renal diseaseStage 3a chronic kidney diseaseOther emphysemaTear of right biceps muscle, subsequent encounter 1 Felicia Leung[address], [place], [place], [address], . tel:[phone] Referring Provider: Xochitl Perez, [address], [place], [address] . tel:[phone] OFFICE GRNLB-JOD-FZA [facility], [address], [place], [place], [address] , tel:[phone] [facility] Chronic Conditions (chief complaint) Benign hypertensive renal diseaseStage 3a chronic kidney diseaseThoracic aortic aneurysm without ruptureAtherosc lerosis of aortaSenile purpuraTear of right biceps muscle, subsequent encounter 1 Felicia Leung. [address], [place], [place], [address], . [phone] Referring Provider: Xochitl Perez, [address], [place], [address] . tel:[phone] [facility], [address], [place], [place], [address] , tel:[phone] [facility] Strain of muscle, fascia and tendon of other parts of biceps, right arm, initial encounter 1 Felicia Leung. [address], [place], [place], [address], [place]. [phone] OFFICE YXXSU-RPW-OZZ [facility], [address], [place], [place], [address] , tel:[phone] [facility] acute visit (chief complaint) Tear of right biceps muscle, initial encounterBenign hypertensive renal diseaseStage 3a chronic kidney disease 1 Nohemi Mckeon. [address], [place], [place], [address], . tel:[phone] Referring Provider: Xochitl Perez, [address], [place], [address] . tel:[phone] OFFICE AXMOH-IYP-SCS [facility], [address], [place], [place], [address] , tel:[phone] [facility] Chronic Conditions (chief complaint) Hypertensive chronic kidney disease with stage 1 through stage 4 chronic kidney disease, or unspecified chronic kidney diseaseChronic kidney disease, stage 3 unspecifiedOthe r emphysema 0 Felicia Leung. [address], [place], [place], [address], [place]. [phone] Referring Provider: Xochitl Perez, [address], [place], [address] . tel:[phone] OFFICE SZRLL-FFC-NDV [facility], [address], [place], [place], [address] , tel: [phone] [facility] IM Chronic Conditions (chief complaint) Other emphysemaThorac ic aortic aneurysm without ruptureHyperten sive chronic kidney disease with stage 1 through stage 4 chronic kidney disease, or unspecified chronic kidney diseaseChronic kidney disease, stage 3 (moderate)Vitam in D deficiencyFoot pain, right Sep-0 0 Felicia Leung. [address], [place], [place], [address], [place]. tel:[phone] Referring Provider: Xochitl Perez, [address], [place], [address] . tel:[phone] [facility], [address], [place], [place], [address] , [place] tel: [phone] [facility] No Information Sep- 0 Brenna Stokes. [address], [place], [place], [address], [place]. tel:[phone] Referring Provider: Xochitl Perez, [address], [place], [address] . [phone] [facility], [address], [place], [place], [address] , [place] tel:[phone] [facility] Breast nodule August- 0 Felicia Leung. [address], [place], [place], [address], [place]. tel:[phone] [facility], [address], [place], [place], [address] , tel: [phone] [facility] No Information August- 0-202 0 Hank Ricci. [address], [place], [place], [address], [place]. tel:[phone] Referring Provider: Xochitl Perez, [address], [place], [address] . tel:[phone] TELEPHONE E&M SERVICE BY A PHYSICIAN;5-1 0 MINUTES OF MEDICAL DISCUSSION [facility], [address], [place], [place], [address] , [place] [phone] [facility] IM Chronic Conditions (chief complaint) Other emphysemaAllerg ic dermatitis Jul-2 0 Felicia Leung. [address], [place], [place], [address], [place]. tel:[phone] Referring Provider: Xochitl Perez, [address], [place], [address] . tel:[phone] OFFICE BBCCB-PIK-NGM [facility], [address], [place], [place], [address] , [place] [phone] [facility] IM Chronic Conditions (chief complaint) Essential hypertensionOth er emphysemaThorac ic aortic aneurysm without ruptureSenile purpuraAtherosc lerosis of aorta 0 Felicia Leung. [address], [place], [place], [address], [place]. tel:[phone] Referring Provider: Xochitl Perez, [address], [place], [address] . [phone] [facility], [address], [place], [place], [address] , [place] tel:[phone] [facility] No Information 0 Felicia Lindsay. [address], [place], [address], [place]. tel:[phone] Referring Provider: Kike Barbour, [address] [place] [address], [place], [address] . [phone] [facility], [address], [place], [place], [address] , [place] [phone] [facility] Periumbilical abdominal pain 0 Km Stokes. [address], [address], [address], . tel:[phone] [facility], [address], [place], [place], [address] , tel: [phone] [facility] No Information 0 Km Stokes. [address] [place] [address], [address], [address], . tel:[phone] Referring Provider: Xochitl Perez, [address], [place], [address] . [phone] [facility], [address], [place], [place], [address] , tel: [phone] [facility] No Information 0 Km Stokes. [address] [place] [address], [address], [address], . tel:[phone] Referring Provider: Xochitl Perez, [address], [place], [address] . [phone] OFFICE AAOGU-DWC-AMW [facility], [address], [place], [place], [address] , tel: [phone] [facility] Chronic Conditions (chief complaint) Essential hypertensionOth er emphysemaRight lower quadrant abdominal painAnemia, unspecified type Nov-2 Felicia Leung. [address], [place], [place], [address], . tel:[phone] Referring Provider: Xochitl Perez, [address], [place], [address] . tel:[phone] OFFICE TNYLP-HOC-OGK [facility], [address], [place], [place], [address] , tel: [phone] [facility] Chronic Conditions (chief complaint) Essential hypertensionOth er emphysemaAnkle edema, bilateralOnycho mycosis Dec-0 Felicia Leung. [address], [place], [place], [address], . tel:[phone] Referring Provider: Xochitl Perez, [address], [place], [address] . tel:[phone] OFFICE TABLT-QCF-SIR ANDED [facility], [address], [place], [place], [address] , tel:[phone] [facility] acute visit (chief complaint) Left foot painTobacco user 9 Kodak Cannon. [address] [facility], [address], [place], [place], [facility], . tel:[phone] Referring Provider: Xochitl Perez, [address], [place], [address] . tel:[phone] [facility], Box On [facility] of [facility], [place], [place], [address] , tel: [phone] [facility] No Information 9 Felicia Leung. [address], [place], [place], [address], . [phone] Referring Provider: Xochitl Perez, [address], [place], [address] . [phone] [facility], [address], [place], [place], [address] , tel: [phone] [facility] Chronic Conditions (chief complaint) Essential hypertensionOth er emphysemaSenile purpuraLung nodulesThoracic aortic aneurysm without ruptureTobacco use 9 Felicia Leung. [address], [place], [place], [address], . [phone] Referring Provider: Xochitl Perez, [address], [place], [address] . tel:[phone] [facility], [address] On [facility] of [facility], [place], [place], [address] , tel:[phone] [facility] Chronic Conditions (chief complaint) Essential hypertensionOth er emphysemaTobacc o consumptionPneu monia of both lower lobes due to infectious organism 9 Felicia Leung. [address], [place], [place], [address], [place]. tel:[phone] Referring Provider: Xochitl Perez, [address], [place], [address] . tel:[phone] [facility], [address], [place], [place], [address] , tel: [phone] [facility] Chronic Conditions (chief complaint) Pneumonia of both lower lobes due to infectious organismOther emphysemaTobacc o consumptionEsse ntial hypertensionSen ile purpura 9 Felicia Leung. [address], [place], [place], [address], [place]. tel:[phone] Referring Provider: Xochitl Perez, [address], [place], [address] . [phone] [facility], [address], [place], [place], [address] , [place] tel: [phone] [facility] Abnormal chest CT 8 Hank Ricci. [address] , [place], [place], [address], [place]. tel:[phone] Referring Provider: Xochitl Perez, [address], [place], [address] . tel:[phone] [facility], [address], [place], [place], [address] , [place] tel: [phone] [facility] Annual physical examEssential hypertensionOst eopeniaAnxiety disorder, unspecifiedVita min D deficiencyTobac co consumptionGene ralized abdominal painBilateral impacted cerumen 8 Felicia Leung. [address], [place], [place], [address], [place]. tel:[phone] Referring Provider: Xochitl Perez, [address], [place], [address] . [phone] [facility], [address], [place], [place], [address] , [place] tel: [phone] [facility] Encounter for screening for osteoporosis 8 Felicia Leung. [address], [place], [place], [address], [place]. tel:[phone] [facility], [address], [place], [place], [address] , tel: [phone] [facility] Essential hypertensionSen ile purpuraAnxiety disorder, unspecified 8 Cidawit Leung. [address], [place], [place], [address], [place]. tel:[phone] Referring Provider: Xochitl Perez, [address], [place], [address] . tel:[phone] [facility], [address], [place], [place], [address] , tel: [phone] [facility] IM OsteopeniaEssen tial hypertensionSen ile purpuraEncounte r for gynecological examination (general) (routine) without abnormal findingsPolyost eoarthritis, unspecifiedAnxi ety disorder, unspecifiedFall , initial encounter 7 Felicia Leung. [address], [place], [place], [address], [place]. tel:[phone] Referring Provider: Xochitl Perez, [address], [place], [address] . tel:[phone] [facility], [address], [place], [place], [address] , [place] tel: [phone] [facility] Essential hypertensionAcu te pain of right shoulder Jun- 7 Felicia Xochitl. [address], [place], [place], [address], [place]. tel:[phone] Referring Provider: Xochitl Perez, [address], [place], [address] . tel:[phone] [facility], [address], [place], [place], [address] , tel: [phone] [facility] IM Essential hypertensionSen ile purpura Nov-1 4-201 6 Cizek Xochitl. [address], [place], [place], [address], [place]. tel:[phone] Referring Provider: Xochitl Perez, [address], [place], [address] . [phone] [facility], [address], [place], [place], [address] , tel: [phone] [facility] No Information 3-201 6 Cizek Xochitl. [address], [place], [place], [address], [place]. tel: [phone] [facility], [address], [place], [place], [address] , tel: [phone] [facility] Essential hypertension 5201 6 Cizek Xochitl. [address], [place], [place], [address], [place]. tel:[phone] Referring Provider: Xochitl Perez, [address], [place], [address] . tel:[phone] [facility], [address], [place], [place], [address] , [place] tel: [phone] [facility] Elevated blood pressure (not hypertension) 6201 6 Cizek Xochitl. [address], [place], [place], [address], [place]. tel: [phone] [facility], [address], [place], [place], [address] , [place] tel: [phone] [facility] Essential hypertension 6 Cizek Xochitl. [address], [place], [place], [address], [place]. tel:[phone] Referring Provider: Xochitl Perez, [address], [place], [address] . [phone] [facility], [address], [place], [place], [address] , tel: [phone] [facility] Essential hypertensionAcu te viral conjunctivitis of both eyes 0 4-201 6 Felicia Leung. [address], [place], [place], [address], [place]. tel:[phone] Referring Provider: Xochitl Perez, [address], [place], [address] . tel:[phone] [employer], [address], [place], [place], [address] , [place] tel: [phone] [facility] IM Osteopenia 0-201 6 Felicia Leung. [address], [place], [place], [address], [place]. tel:[phone] [employer], [address], [place], [place], [address] , [place] tel: [phone] [facility] IM Right-sided low back pain without sciaticaOsteope niaEssential hypertension 0- 6 Detmer Bety. [address], [place], [place], [address], [place]. tel:[phone] Referring Provider: Xochitl Perez, [address], [place], [address] . tel:[phone] [employer], [address], [place], [place], [address] , [place] tel: [phone] [facility] IM Routine gynecological examOsteoarthro sis, Unspecified, Unspecified SiteOsteopeniaE levated blood pressure (not hypertension)Ce rumen impactionAbdomi nal painAnxiety state, unspecified 2 5 Felicia Leung. [address], [place], [place], [address], [place]. tel:[phone] Referring Provider: Xochitl Perez, [address], [place], [address] . tel:[phone] [employer], [address], [place], [place], [address] , [place] tel: [phone] [facility] IM Elevated blood pressure (not hypertension)Os teoarthrosis, generalized, involving unspecifiedToba medical accounts receivable specialist useAnxiety state, unspecifiedOste openiaCerumen impactionRoutin e gynecological exam 3 Felicia Leung. [address], [place], [place], [address], [place]. tel:[phone] Referring Provider: Xochitl Perez, [address], [place], [address] . tel:[phone] [employer], [address], [place], [place], [address] , [place] tel: [phone] [facility] IM Urinary tract infection, site not specifiedAcute upper respiratory infections of unspecified siteTobacco use disorder 3 Detmer Bety. [address], [place], [place], [id number], [place]. tel: [phone] Referring Provider: Xochitl Perez, [address], [place], [address] . tel:[phone] [employer], [address], [place], [place], [address] , [place] tel: [phone] [facility] IM Osteoarthrosis, generalized, involving unspecified siteAnxiety state, unspecifiedToba medical accounts receivable specialist use disorderUrinary tract infection, site not specifiedElevat ed blood pressure reading without diagnosis of hypertension 2 Felicia Leung. [address], [place], [place], [address], [place]. tel:[phone] Referring Provider: Xcohitl Perez, [address], [place], [address] . tel:[phone] [employer], [address], [place], [place], [address] , [place] tel: [phone] [facility] IM Urinary tract infection 2 Detmer Bety. [address], [place], [place], [address], [place]. tel:[phone] [employer], [address], [place], [place], [address] , tel: [phone] [facility] IM Frequency of urinationElevat ed blood pressure (not hypertension)To bacco use 2 Detmer Bety. [address], [place], [place], [address], [place]. tel:[phone] Referring Provider: Xochitl Perez, [address], [place], [address] . tel:[phone] [employer], [address], [place], [place], [address] , tel: [phone] [facility] IM Shoulder pain, left 2 Detmer Bety. [address], [place], [place], [address], [place]. tel:[phone] Referring Provider: Xochitl Perez, [address], [place], [address] . tel:[phone] [employer], [address], [place], [place], [address] , [place] tel: [phone] [facility] IM Superficial injury of cornea 1 Horner Gabrielle. [address], [place], [place], [address]. tel:[phone] Referring Provider: Xochitl Perez, [address], [place], [address] . tel:[phone] [employer], [address], [place], [place], [address] , tel: [phone] [facility] IM Routine gynecological examinationAnxi ety state, unspecifiedOste oarthrosis, Unspecified, Unspecified SiteImpacted cerumen 1 Felicia Leung. [address], [place], [place], [address], [place]. tel:[phone] Referring Provider: Xochitl Perez, [address], [place], [address] . tel:[phone] [employer], [address], [place], [place], [address] , tel: [phone] [facility] IM PAIN IN LIMBREDNESS/DIS CHARGE OF EYE Jul-2 1-201 1 Cizek Xochitl. [address], [place], [place], [address], [place]. tel:[phone] [facility], [address], [place], [place], [address] , [place] tel: [phone] [facility] IM TOBACCO USE DISORDER Oct- 7-201 0 Cizek Xochitl. [address], [place], [place], [address], [place]. tel:[phone] [facility], [address], [place], [place], [address] , [place] tel: [phone] [facility] IM ANXIETY STATE NOSROUTINE MEDICAL EXAMSCREEN MAL NEOP-RECTUM Sep- 5-200 9 Cizek Xochitl. [address], [place], [place], [address], [place]. tel:[phone] [facility], [address], [place], [place], [address] , [place] tel: [phone] [facility] IM PURE HYPERCHOLESTERO YELENA 8-200 6 Cizek Xochitl. [address], [place], [place], [address], [place]. tel:[phone] [facility], [address], [place], [place], [address] , [place] tel: [phone] [facility] IM GENERAL OSTEOARTHROSISL LOIS-TERM USE MEDS NEC Sep-0 1-200 5 Cizek Xochitl. [address], [place], [place], [address], [place]. tel:[phone] [facility], [address], [place], [place], [address] , [place] tel: [phone] [facility] IM ND OTHER SPECF VACNATION Dec-0 3-200 2 Cizek Xochitl. [address], [place], [address], [place]. tel: [phone] [facility], [address], [place], [place], [address] , [place] tel: [phone] [facility] IM HORMONE REPLACE POSTMENO Sep-2 6-200 0 Cizek Xochitl. [address], [place], [place], [address], [place]. tel:[phone] [facility], [address], [place], [place], [address] , tel: [phone] [facility] IM SCREEN-BLOOD DIS NOS 9-200 0 Cizek Xochitl. [address], [place], [place], [address], [place]. tel:[phone] [facility], [address], [place], [place], [address] , [place] tel: [phone] [facility] IM SCREEN FOR HYPERTENSION 6-200 0 Cizek Xochitl. [address], [place], [place], [address], [place]. tel:[phone] Family History Family Member Type Diagnosis Age At Onset No Information Immunizations Vaccine Date Status Comments Fluzone High-Dose Trivalent, preservative free administered Source: New Immuniza tion Record Pfizer Comirnaty COVID vaccine, promise-sucrose, 30mcg/0.3mL dose, 12 years and older administered Source: New Immuniza tion Record Pfizer Comirnaty COVID vaccine, promise-sucrose, 30mcg/0.3mL dose, [...] Covered green party ID Authoriza tion(s) AETNA MDCR PPO PLANS MB [id number] AETNA MDCR PPO PLANS [place] [id number] MEDICARE MB [id number] A[employer] MDCR PPO PLANS MB [id number] MEDICARE MB [id number] [facility] OPEN ACCESS I II III CI [id number] S01 MEDICARE MB [id number] [facility] OPEN ACCESS I II III CI [id number] S01 [facility] OPEN ACCESS I II III CI [id number] S01 [facility] OPEN ACCESS I II III CI [id number] S01 [employer] O CI [id number] [facility] O CI [id number] [facility] O CI [id number] [employer] HMO CI [id number] Social History Type Description Quantity Date Captured [...] ordered Referral Referred To: Ashwin Hinson [address] [facility]
[address] [place], [phone] Ordered: Referrals: Pulmonology. Ashwin Hinson. Evaluation/diagnostic/treatment - Level 3 ordered Referral Referred To: [facility], [phone] Ordered: CT scan of chest with contrast ordered Referral Referred To: [address] [place], [place], [phone] Ordered: Screening mammography of both breasts Appointment date/timeframe: 08/08/2024 ordered Referral Referred To: [facility] [place], [place], [phone] Ordered: Colonoscopy, flexible; with biopsy, single or multiple Appointment date/timeframe: 11/05/2022 ordered Referral Referred To: [address] [place] [address] [address] [place], [place], [phone] Ordered: Upper gastrointestinal endoscopy Appointment date/timeframe: 11/05/2022 ordered Referral Referred To: Robert Lagunas DO [address] [place], [phone] Ordered: Referrals: Orthopedic Surgery. Robert Lagunas DO. Evaluation/diagnostic/treatment - Level 3 ordered Referral Referred To: [address] [place], [place], [phone] Ordered: VENECIA (ankle brachial index) ordered Referral Referred To: [address] [place] [address], [address] [phone] Ordered: Complete Doppler ultrasound of arteries of both lower extremities ordered Referral Ordered: X-RAY EXAM OF KNEES Bilateral ordered Referral Ordered: Complete Doppler ultrasound of renal artery ordered Referral Ordered: Complete duplex scan of renal vessels ordered Referral Ordered: CT of right upper extremity without contrast Right Appointment date/timeframe: 10/09/2020 ordered Referral Referred To: [address] [place] [address], [id number] [phone] Ordered: MRI upper extremity oth than jt w/o contr matrl ordered Referral Ordered: X-RAY EXAM OF FOOT Right ordered Referral Referred To: [address] [place] [address], [id number] [phone] Ordered: Spot compression mammography of left breast Left breast ordered Referral Referred To: [address] [place] [address], [id number] [phone] Ordered: US breast left limited Left breast ordered Referral Referred To: [address] [place] [address], [id number] [phone] Ordered: SCREENING MAMMOGRAM (CAD) Bilateral breast Appointment date/timeframe: 07/19/2019 ordered Referral Referred To: [address] [place] [address], [id number] [phone] Ordered: CT angiography chest w/contrast/noncontrast Appointment date/timeframe: 07/19/2019 ordered Referral Ordered: CT abdomen and pelvis w contrast ordered Referral Referred To: [address] [place] [address]
[address], [phone] Ordered: COLONOSCOPY, Flexible, Proximal To Splenic, Diagnostic, Wor W/O Collection Of Sp Appointment date/timeframe: 06/01/2019 ordered Referral Referred To: [address] [place] [address]
[address], [phone] Ordered: EGD, FLEXIBLE, TRANSORAL, DIAGNOSTIC W/ COLLECTION OF SPECIMEN Appointment date/timeframe: 06/01/2019 ordered Referral Ordered: X-RAY EXAM OF FOOT Left ordered Referral Ordered: Chest Xray, 2 Views ordered Appointment Fara Valencia BOOKED Future Order: Lab Order C Diffic ile Toxin RT- PCR ([id number]), Ordered on: Ordered Future Order: Radiology Order Co mplete Doppler ultrasound of renal artery ([id number]), Sent on: Sent Future Order: Radiology Order Co mplete duplex scan of renal vessels ([id number]), Sent on: Sent Future Order: Radiology Order MR I upper extremity oth than jt w/o contr matrl ([id number]), Sent on: Sent History Of Present Illness Encounter Date Complaint History Of Prese nt Illness Chronic Conditions *See Chronic Conditions HPI acute visit Fara reports experiencing rectal bleeding [...] on November 08 and given a medrol marco then. She had continued URI symptoms and [...] fill the toilet. She has been using dodb-hqu-iagvkah creams for discomfort, finding some relief. She [...] an ER follow up. She went to [facility] on 04/17/2024 for shortness of breath, [...] an ER follow up. She went to [facility] on 04/17/2024 for shortness of breath, [...] and above. Chronic Conditions *See Chronic Conditions [facility] Chronic Conditions *See Chronic Conditions [facility] Chronic Conditions *See Chronic Conditions [facility] Chronic Conditions *See Chronic Conditions [facility] Medicare preventive A Health Ris k Assessment [...] changes made. chronic conditions *See Chronic Conditions [facility] Chronic Conditions *See Chronic Conditions [facility] Chronic Conditions *See Chronic Conditions [facility] Chronic Conditions *See Chronic Conditions [facility] Chronic Conditions *See Chronic Conditions [facility] Chronic Conditions *See Chronic Conditions [facility] Chronic Conditions *See Chronic Conditions [facility] Chronic Conditions *See Chronic Conditions [facility] acute visit Chief complaint: knee pain. Saw [...] frothy urine. Chronic Conditions *See Chronic Conditions [facility] Chronic Conditions *See Chronic Conditions [facility] Chronic Conditions *See Chronic Conditions [facility] Chronic Conditions *See Chronic Conditions [facility] acute visit Chief complaint: ankle pain. Painful lump and redness around her right ankle. This began 3 days ago. Tender to touch. Very warm to touch. No injury. Taking Tylenol and applying ice. Increased swelling after standing all day at work.Has hypertension. Taking meds. No chest pain or headache. Chronic Conditions *See Chronic Conditions [facility] Chronic Conditions *See Chronic Conditions [facility] Chronic Conditions *See Chronic Conditions [facility] Chronic Conditions *See Chronic Conditions [facility] Chronic Conditions *See Chronic Conditions [facility] Chronic Conditions *See Chronic Conditions [facility] acute visit Chief complaint: right upper arm [...] frothy urine. Chronic Conditions *See Chronic Conditions [facility] Chronic Conditions *See Chronic Conditions [facility] Chronic Conditions *See Chronic Conditions [facility] Chronic Conditions *See Chronic Conditions [facility] Chronic Conditions *See Chronic Conditions [facility] Chronic Conditions *See Chronic Conditions [facility] acute visit Chief complaint: left foot pain. [...] Information Instructions Date Instruction Additional Infor mation Daily stretching and walking and refill the Hydrocodone. Related to Generalized osteoarthritis Stable. Good hydration. Related to Stage 3a chronic kidney disease Doing much better. L ungs are clear. Continue with the close follow up and inhalers and follow up on the recent Chest CT. Related to Pneumonia of right upper lobe due to infectious organism BP is under good con trol and continue with the present meds. Related to Hypertensive chronic kidney disease with stage 1 through stage 4 chronic kidney disease, or unspecified chronic kidney disease Will review the Chest CT. Relate d to Right lower lobe lung mass Improving and contin ue with the present regimen for now. Has seen pulmonary and will change from Trelegy to Anoro. Send for pulmonary consult notes and the Chest CT yesterday. Flu and covid vaccines today. Follow up in 4 months if doing well. Related to Other emphysema BP is running in the 110-120 range at home. Same meds for now. Good hydration. Related to Hypertensive chronic kidney disease with stage 1 through stage 4 chronic kidney disease, or unspecified chronic kidney disease Noted on the recent CTA and was improving on prior CT. Repeat the Chest CT in 2 months. Further evaluation pending the results. May need to consider biopsy. Will call and discuss with pulmonary, Dr. Bernal. Related to Right lower lobe lung mass Check the BMP today. Related to Stage 3a chronic kidney disease As noted above. Pneu monia and severe COPD exacerbation noted. Complete the antibiotics and continue with the present inhalers. Related to Other emphysema Recent Covid infecti on and RUL pneumonia and hypoxia. Much improved with hydration and antibiotics. Rest and good hydration and nutrition and follow up in 1 month. Flu and Covid vaccines then. Related to Pneumonia of right upper lobe due to infectious organism Elevated WBC on admi ssion. Repeat the CBC today. Related to Leukocytosis, unspecified Let us know if this does not improve or worsens. Related to Bleeding hemorrhoids We will call you wit h lab results. Let us know if your [...] iron deficiency anemia type Albuterol sent to [facility].Use this to help with shortness of [...] if not improving. Related to Folliculitis Recommend [place] nasal gel to help with this. Related [...] is el evated in office, to [facility]. Related to Hypertensive chronic kidney disease [...] Acute cystitis without hematuria Stable on the E . Repeat in 2025. Daily walking and Vitamin D. Related to Osteopenia of multiple sites Stable. Related to Stage 3a chronic kidney disease Doing well. Normal m [place] testing. Schedule mammogram. Follow up in 3 [...] if you stay at home, use hand social service assistant and wash your hands frequently. Especially when [...] if you stay at home, use hand social service assistant and wash your hands frequently. Especially when [...] if you stay at home, use hand social service assistant and wash your hands frequently. Especially when [...]
--- OUTSIDE RECORDS SUMMARY | 2025-01-17 08:16 | XMS_ITS | Clinical Summary ---
Author Organization [facility] [address] Address [address] [place] [address] Care Team Providers Care Retail Attendant Name Role Phone No, Physician Primary Care Provider [phone] Allergies Active Allergy Reactions Criticality Noted Date [...] on file Legal Sex Female 2:25 AM PACKAGE LINE OPERATOR Gender Identity Not on file Sexual Orientation Not on file Obstetrics History Last Filed Vital Signs Vital Sign Reading Time Taken Comments Blood Pressure 134/96 04/24/2021 9:01 AM PACKAGE LINE OPERATOR Pulse 54 04/24/2021 8:53 AM PACKAGE LINE OPERATOR Temperature 36.3 C (97.4 F) 04/24/2021 8:53 AM PACKAGE LINE OPERATOR Respiratory Rate 16 04/24/2021 8:53 AM PACKAGE LINE OPERATOR Oxygen Saturation 99% 04/24/2021 8:53 AM PACKAGE LINE OPERATOR Inhaled Oxygen Concentration - - Weight 68 kg (150 lb) 03/10/2024 10:36 AM PACKAGE LINE OPERATOR Height 167.6 cm (5' 6) 03/10/2024 10:36 AM PACKAGE LINE OPERATOR Body Mass Index 24.21 03/10/2024 10:36 AM PACKAGE LINE OPERATOR Plan of Treatment Health Maintenance Due [...] Insurance AETNA MEDICARE AETNA MEDICARE Care Teams Retail Attendant Relationship Specialty Start Date End Date No, Physician PCP - General 04/24/21
--- OUTSIDE RECORDS SUMMARY | 2025-01-17 08:17 | XMS_ITS | Clinical Summary ---
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 Not on file Not on file Last Filed Vital Signs Vital Sign Reading Time Taken Comments Blood Pressure 150/90 04/15/2021 2:01 PM NITROGLYCERIN NITRATOR OPERATOR BATCH Pulse 58 04/15/2021 2:00 PM NITROGLYCERIN NITRATOR OPERATOR BATCH Temperature 36.7 C (98.1 F) 04/15/2021 2:00 PM NITROGLYCERIN NITRATOR OPERATOR BATCH Respiratory Rate 24 04/15/2021 2:00 PM NITROGLYCERIN NITRATOR OPERATOR BATCH Oxygen Saturation 96% 04/15/2021 2:00 PM NITROGLYCERIN NITRATOR OPERATOR BATCH Inhaled Oxygen Concentration - - Weight 74.3 kg (163 lb 12.8 oz) 04/15/2021 2:02 PM NITROGLYCERIN NITRATOR OPERATOR BATCH Height 170.2 cm (5' 7) 04/15/2021 2:02 PM NITROGLYCERIN NITRATOR OPERATOR BATCH Body Mass Index 25.65 04/15/2021 2:02 PM NITROGLYCERIN NITRATOR OPERATOR BATCH Plan of Treatment Health Maintenance Due Date Last Done Comments Colorectal Cancer Screening Colonoscopy (10 Years) 1957 Hepatitis C 1975 DTaP, Tdap and Td Vaccines ( 1 - Tdap) 1976 Mammogram Screening 1997 Pneumococcal Vaccine: 50+ Years (1 of 1 - PCV) 2007 Zoster Vaccines (2 of 2) 09/12/2018 07/18/2018 Dexa Scan (General) 2022 COVID-19 Vaccine (4 - 2024-2 6 season) 2024 03/09/2021, 06/21/2020, 06/02/2020 Influenza Adult (#1) 2025 12/13/2019, 01/03/2019 RSV Immunization or 60+ Years [...] patient's age to complete this topic Insurance [employer] Care Teams Legal Process Specialist Relationship Specialty Start Date End Date Xochitl Duarte MD [address] [place] [address] PCP - General 02/18/21
--- OUTSIDE RECORDS SUMMARY | 2025-01-17 08:17 | XMS_ITS | Clinical Summary ---
Author Organization [employer] [facility] Address [address] [place] [address] Care Team Providers Care Rides Supervisor Name Role Phone Xochitl Duarte MD Primary Care Provider [phone] Allergies Active Allergy Reactions Criticality Noted Date [...] Encounters Date Type Department Care Team Description 01/09/2025 External Device Data [facility]CTION Provider, Abstract 12/26/2024 External Device Data [facility] Provider, Abstract 12/19/2024 External Device Data [facility] Provider, Abstract [...] PPO MCR AETNA PPO MCR Care Teams Rides Supervisor Relationship Specialty Start Date End Date Xochitl Duarte MD [address] [place] [address] PCP - General Internal Medicine 08/14/20
--- OUTSIDE RECORDS SUMMARY | 2025-01-17 08:17 | XMS_ITS | Patient Health Record ---
Author Organization [facility] Address [address] [place] [id number] Care Team Providers Care Rib Matcher And Fitter Name Role Phone Xochitl Duarte MD Primary Care Provider Unavail able Garfield Basilio Unavailable [phone] ALLERGIES Allergen (clinical drug ingredient) Drug/Non Drug [...] (primary) hypertension (I10) Active confirmed Essential hypertension (80777810) Problem Acute kidney failure, unspecified (N17.9) Active confirmed Acute renal failure syndrome (53583058) PLAN OF TREATMENT Future Test Test Name Order Date Ultrasound : Kidneys 09/11/2021 RENAL ARTERY DUPLEX 09/11/2021 RENAL PANEL 01/17/2022 RENAL PANEL 03/19/2022 Insurance Providers Payer Name Payer Address Payer Phone Subscriber Number Group Number Insured Name Patient Relationship to Insured Coverage Start Date Coverage End Date [facility] [address] [place] [address] [id number] Fara Valencia Self - patient is [...]
--- NOTE | 2025-01-17 10:56 | WPDSIXMINUTE ---
Six Minute Walk Procedure Procedure Performed Pulmonary Stress Test (6 min walk) Six Minute Walk Six Minute Walk: This is a 6 minute walk test. The test was performed and interpreted in accordance with the 2014 ERS/ATS task force guidelines. Of note, patient used a walking aid due to bad knees. Findings: The patient's resting room air oxygen saturation measured by pulse oximetry was 97%, the heart rate was 81 bpm, and the modified Mitzi dyspnea score was 0.5. Patient ambulated for 183 meters and oxygen saturation remained 92 to 96%. At the end of the study the heart rate was 80 bpm and the modified Mitzi dyspnea score was 0.5. The patient did not qualify for supplemental oxygen at rest or with ambulation. There are no prior studies for comparison.
--- NOTE | 2025-01-17 10:59 | P.PCNPFT_ITS ---
PFT Procedure Performed PFT Procedure Performed Spirometry with Pre/Post Bronchodilator Plethysmography (Lung Vol) Diffusing Cap (DLCO) Flow Vol Loop PFT Interpretation This is a pulmonary function test with pre and post-bronchodilator spirometry, plethysmography and diffusing capacity. The test was performed and results interpreted in accordance with the 2019 and 2005 ATS/ERS Task Force guidelines respectively using the Global Lung Function Initiative-2012 reference equations. Patient demonstrated good effort and cooperation. Reproducibility criteria were met. The quality of the pre bronchodilator spirometry maneuver was Grade A and post bronchodilator spirometry maneuver was Grade A. Findings: Spirometry: There is decreased maximal expiratory airflow at all lung volumes with a concave expiratory flow tracing. The contour the inspiratory flow tracing is normal. The pre bronchodilator FVC is 2.42 L, 74% predicted. The pre bronchodilator FEV1 is 1.39 L, 55% predicted. The pre bronchodilator FEV1: FVC ratio is 57%. The post bronchodilator FVC is 2.60 L, representing a 7% increase. The post bronchodilator FEV1 is 1.46 L, representing a 5% increase. The post bronchodilator FEV1: FVC ratio is 56%. Plethysmography: The total lung capacity is 4.78 L, 87% predicted. The functio nal residual capacity is 3.43 L, 109% predicted. The residual volume is 2.36 L, 104% predicted. Diffusing capacity: The diffusing capacity unadjusted for hemoglobin and carboxyhemoglobin is 8.5, 38% predicted. The diffusing capacity adjusted for alveolar volume is 2.75, 66% predicted. In comparison to previous pulmonary function testing on 07/07/2024, the post bronchodilator FVC is unchanged from 2.63 L 2.60 L. The post bronchodilator FEV1 is unchanged from 1.44 L to 1.46 L. The total lung capacity is unchanged from 4.59 L to 4.78 L. The functional residual capacity is unchanged from 3.35 L to 3.43 L. The residual volume is increased from 1.89 L to 2.36 L. The diffusing capacity unadjusted for hemoglobin and carboxyhemoglobin is unchanged from 9.3 to 8.5. The diffusing capacity adjusted for alveolar volume is unchanged from 2.75 to 2.75. Impression: There is a moderately severe obstructive abnormality. There is no significant improvement after inhaling a single dose of albuterol. The lung volumes are normal. The diffusing capacity unadjusted for hemoglobin and carboxyhemoglobin is severely decreased and remains mildly decreased when adjusted for alveolar volume. In comparison to prior pulmonary function testing on 07/07/2024, there has been a greater than anticipated time dependent increase in the residual volume with no significant change in the FVC, FEV1, total lung capacity, functional residual capacity or diffusing capacity. Clinical correlation is recommended.
== END 2025-01-17 08:04 | disposition home or self-care (01) ==
LOC: ANHPFT 08:09
PROVIDERS: PCP Internal Medicine; Visit Provider Internal Medicine Critical Care Medicine
DX: R94.2 Abnormal results of pulmonary function studies (principal); J44.9 Chronic obstructive pulmonary disease, unspecified
CPT/HCPCS: 94060; 94726; 94729

== ENCOUNTER 2025-01-24 09:49 | Inpatient (IN) | payer MEDICARE, SELFPAY ==
[2025-01-24] VITALS (16 sets, daily range): BP systolic 136–184; BP diastolic 92–115; PULSE 87–105; RESP 16–25; TEMP 36.4–36.6; O2SAT 93–100; BMI 25.8
--- NOTE | ~2025-01-24 | CT_ITS ---
CT abdomen pelvis w con Clinical History: Lower gi bleeding . Comparison: PET CT 07/06/2024 Technique: Axial images lung bases to symphysis pubis IV contrast information not listed in PACS Coronal, sagittal reformats CT images acquired with automatic exposure control for dose reduction DLP: 440 mGy-cm Findings: Lung bases: Clear. Visualized heart and pericardium: Unremarkable. Liver: A few tiny hypodense foci too small to characterize but likely benign. Gallbladder: Unremarkable. Spleen: Unremarkable. Pancreas: Unremarkable. Adrenal glands: Unremarkable. Kidneys: Several tiny bilateral probable cysts Right kidney- No hydronephrosis. No renal stones. Left kidney- No hydronephrosis. No renal stones. Foci of decreased enhancement Distal esophagus/stomach: Apparent gastric antral wall thickening likely underdistention. Small bowel loops: Normal caliber and wall thickness. Colon: Diffuse wall thickening. Normal RLQ appendix. Nodes: Small retroperitoneal nodes. Peritoneum: No ascites. No free air. Urinary bladder: Unremarkable. Uterus: Removed. Adnexa: No masses. Bones: No acute bony abnormality. Soft tissues: Unremarkable. Aorta: No aneurysm or dissection. Atherosclerotic disease. IVC: Unremarkable. Main portal vein/SMV/splenic vein: Patent. IMPRESSION: 1. Severe colitis. No complicating features. Reviewed, dictated and finalized at location R.
[2025-01-24 10:24] LABS: Hematocrit 39.2 % (37.0-47.0); Hemoglobin 12.5 g/dL (12.0-15.0); Immature Granulocyte Percent A 0.4 % (0-0.5); Lymphocytes Absolute Auto 1.03 K/mm3 (0.9-3.2); Mean Corpuscular HGB Conc 31.9 g/dl (32-36); Mean Corpuscular Hemoglobin 29.6 pg (26-34); Mean Corpuscular Volume 92.7 fl (80-100); Nucleated Red Blood Cells Absolute Auto 0.000 K/mm3 (0.0-0.012); Nucleated Red Blood Cells Perc 0.0 % (0.0-0.2); Platelet Count Result 294 k/mm3 (150-375); Red Blood Count 4.23 M/mm3 (4.2-5.4); White Blood Count 14.2 K/mm3 (4.5-10.0)
[2025-01-24 10:35] LABS: INR 0.9; Prothrombin Time 12.8 Seconds (11.1-14.7)
[2025-01-24 10:36] LABS: Partial Thromboplastin Time 28.5 Seconds (22.3-36.8)
[2025-01-24 10:48] LABS: Alanine Aminotransferase 18 U/L (6-35); Albumin Level 4.1 g/dL (3.5-5.1); Alkaline Phosphatase 109 U/L (38-126); Anion Gap 7 mmol/L (4-12); Aspartate Amino Transferase 25 U/L (14-36); Bilirubin,Total 0.3 mg/dL (0.2-1.3); Blood Urea Nitrogen 22 mg/dL (7-17); Calcium 9.5 mg/dL (8.4-10.2); Carbon Dioxide 26 mmol/L (22-30); Chloride 103 mmol/L (98-107); Estimated CRCL calculation 46 ml/min; Estimated Glomerular Filt Rate 57; Glucose 126 mg/dL (65-110); Potassium 3.7 mmol/L (3.4-5.0); Sodium 136 mmol/L (137-145); Total Protein 7.8 g/dL (6.3-8.2)
[2025-01-24] MEDS: LACTATED RINGERS 1,000 ML 999 ML IV CONT (12:11)
--- NOTE | 2025-01-24 13:06 | ED_ITS ---
HPI - General Adult General Chief complaint: GI Bleed Stated complaint: rectal bleed Time Seen by Provider: 01/24/25 10:54 History of Present Illness HPI narrative: This is a 69-year-old female presenting with bright red blood per rectum. Patient says that she has been having bloody bowel movements for last 3-4 days. It is associated with a diffuse crampy abdominal pain. She denies fevers chills nausea vomiting chest pain or difficulty breathing. No urinary symptoms. Related Data Home Medications ?Medication ?Instructions ?Recorded ?Confirmed ?Last Taken ?Type alprazolam 0.5 mg tablet 1 tablet PO BID PRN Anxiety 10/20/21 01/02/25 Unknown History albuterol sulfate 90 mcg/actuation 2 puff inhalation Q ID PRN 02/17/23 01/02/25 Unknown History aerosol inhaler Shortness Of Breath multivitamin with minerals-folic 1 tablet PO HS 01/02/25 Unknown History acid 80 mcg chewable tablet (Centrum Adult 50 Plus) pantoprazole 40 mg tablet,delayed 40 mg PO HS 02/17/23 01/02/25 Unknown History release aspirin 81 mg tablet,delayed 81 mg PO DAILY 03/19/23 0 01/02/25 Unknown History release (Adult Low Dose Aspirin) amlodipine 5 mg tablet 5 mg PO DAILY 11/29/2401/02 Unknown History gabapentin 100 mg capsule 100 mg PO Q12H 11/29/2412/06 Unknown History hydrocodone 5 mg-acetaminophen 325 1 tablet PO Q8H PRN pain 11/29/24 01/02/25 Unknown History mg tablet lisinopril 10 mg tablet 10 mg PO DAILY 01/02/2512/06 Unknown History Allergies Allergy/AdvReac Type Severity Reaction Status Date / Time No Known Allergies Allergy Verified 01/24/25 10:00 [facility] Past Medical History Medical History Chronic neck and back pain COPD (chronic obstructive pulmonary disease) Right knee pain Other fatigue Effusion, left knee Effusion of knee joint right 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, bilateral Chronic, continuous use of opioids 30 mg morphine x 2 years Hydrocephalus as child Emphysema lung Rupture of proximal biceps tendon Mass of right upper extremity Left knee pain Right knee DJD Chronic pain Anxiety Hypertension Rheumatoid arthritis Surgical History Surgical History History of colonoscopy approx 2018 S/P ventricular shunt placement H/O left knee surgery History of surgery on wrist ORIF 07/15/22 Family History Family History Unknown Arthritis Mother Kidney disease Social History Social History Social History: Smoking packs per day: 1 Smoking cigarettes per day: 20.0 Years smoked: 38 Smoking pack-years: 38.00 Smoking status: Former smoker Tobacco type: cigarettes Smoking end date: 11/03/06 Alcohol intake: never Substance use: never Substance use type: does not use Do You Feel Safe in your Home?: Yes Lack of Transportation: No Lack of Food: Never True Current Housing: I Have Housing Concerned About Future Housing: No Difficulty Paying Gas/Electric Bills: No Difficulty Paying for Meds: No Currently Unemployed: No Education: Associate Degree Difficulty w/ Childcare or Family Care: No Living arrangements: with family Additional living arrangements comments: Occupation/Education: occupation 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 Head: atraumatic. EYES: EOMI, NOSE: Atraumatic NECK: Trachea midline RESPIRATORY: No increased rate of breathing clear to auscultation CARDIOVASCULAR: Tachycardic, no peripheral edema ABDOMINAL: Soft without guarding or rebound MUSCULOSKELETAl: No obvious deformities NEURO: Alert. Moving 4/4 extremities SKIN:: Warm, dry. Normal color PSYCHIATRIC: Normal affect Course Vital Signs Vital signs: Vital Signs Temperature 97.6 F 01/24/25 09:51 Pulse Rate 95 01/24/25 09:51 Respiratory Rate 20 01/24/25 09:51 Blood Pressure 184/114 H 01/24/25 09:51 Pulse Oximetry 100 01/24/25 09:51 Oxygen Delivery Room Air 01/24/25 09:51 Temperature 97.6 F 01/24/25 09:51 Pulse Rate 96 01/24/25 13:00 Respiratory Rate 21 H 01/24/25 13:00 Blood Pressure 180/115 H 01/24/25 13:00 Pulse Oximetry 96 01/24/25 13:00 Oxygen Delivery Room Air 01/24/25 09:51 Medical Decision Making [facility] Narrative Medical decision making narrative: -Course: 69-year-old female presenting with abdominal pain and bloody diarrhea. Abdominal exam is benign. Patient is mildly tachycardic on arrival. Given fluid resuscitation. Laboratory studies significant for a white count of 14.2. CT abdomen pelvis showed colitis. Given the bloody diarrhea elevated white count she will be started on antibiotics for infectious colitis. Given fluid resuscitation. Repeat hemoglobin ordered for 6 hours after arrival due to bloody diarrhea. Patient be admitted to the hospital for further management. -DDX includes but is not limited to: Diverticular bleed, hemorrhoids, colitis, brisk upper GI bleed Vital Signs Vital Signs: Vital Signs Temperature 97.6 F 01/24/25 09:51 Pulse Rate 95 01/24/25 09:51 Respiratory Rate 20 01/24/25 09:51 Blood Pressure 184/114 H 01/24/25 09:51 Pulse Oximetry 100 01/24/25 09:51 Oxygen Delivery Room Air 01/24/25 09:51 Temperature 97.6 F 01/24/25 09:51 Pulse Rate 96 01/24/25 13:00 Respiratory Rate 21 H 01/24/25 13:00 Blood Pressure 180/115 H 01/24/25 13:00 Pulse Oximetry 96 01/24/25 13:00 Oxygen Delivery Room Air 01/24/25 09:51 Lab Data 01/24/25 10:13 01/24/25 10:13 Labs: Lab Results 01/24/25 Range/Units 10:13 WBC 14.2 H (4.5-10.0) K/mm3 RBC 4.23 (4.2-5.4) M/mm3 Hgb 12.5 D (12.0-15.0) g/dL Hct 39.2 (37.0-47.0) % MCV 92.7 (80-100) fl MCH 29.6 (26-34) pg MCHC 31.9 L (32-36) g/dl RDW 13.2 (11.5-14.5) % Plt Count 294 (150-375) k/mm3 MPV 8.9 (7.4-10.4) fl Immature Gran % (Auto) 0.4 (0-0.5) % Neut % (Auto) 86.6 H (45.5-73.1) % Lymph % (Auto) 7.3 L (18.3-44.2) % Sullivan % (Auto) 5.2 (2.6-8.5) % Eos % (Auto) 0.2 (0-4.4) % Baso % (Auto) 0.3 (0.2-1.2) % Lymph # (Auto) 1.03 (0.9-3.2) K/mm3 Sullivan # (Auto) 0.7 H (0.1-0.6) K/mm3 Eos # (Auto) 0.0 (0-0.3) K/mm3 Baso # (Auto) 0.0 (0.0-0.1) K/mm3 Abs Immat Gran (auto) 0.05 H (0.00-0.031) K/mm3 Absolute Neuts (auto) 12.3 H (1.3-6.7) K/mm3 Absolute Nucleated RBC 0.000 (0.0-0.012) K/mm3 Nucleated RBC % 0.0 (0.0-0.2) % PT 12.8 (11.1-14.7) Seconds INR 0.9 APTT 28.5 (22.3-36.8) Seconds Sodium 136 L (137-145) mmol/L Potassium 3.7 (3.4-5.0) mmol/L Chloride 103 (98-107) mmol/L Carbon Dioxide 26 (22-30) mmol/L Anion Gap 7 (4-12) mmol/L BUN 22 H D (7-17) mg/dL Creatinine 0.98 (0.7-1.0) mg/dL Estim Creat Clear Calc 46 ml/min Estimated GFR 57 L (59 - ) Glucose 126 H (65-110) mg/dL Calcium 9.5 (8.4-10.2) mg/dL Total Bilirubin 0.3 (0.2-1.3) mg/dL AST 25 (14-36) U/L ALT 18 (6-35) U/L Alkaline Phosphatase 109 (38-126) U/L Total Protein 7.8 (6.3-8.2) g/dL Albumin 4.1 (3.5-5.1) g/dL Blood Type O Positive Antibody Screen Negative Discharge Plan Discharge Clinical Impression: Colitis Patient Disposition: Still a Patient Condition: Stable Patient Language: Turkmen Prescriptions: No Action alprazolam 0.5 mg tablet 1 tablet PO BID PRN (Reason: Anxiety) lisinopril 10 mg tablet 10 mg PO DAILY umeclidinium-vilanterol 62.5-25 mcg/actuation blister with device 1 inh inhalation DAILY Qty: 60 6RF amlodipine 5 mg tablet 5 mg PO DAILY hydrocodone-acetaminophen 5-325 mg tablet 1 tablet PO Q8H PRN (Reason: pain) gabapentin 100 mg capsule 100 mg PO Q12H albuterol sulfate 90 mcg/actuation HFA aerosol inhaler 2 puff INHALATION QID PRN (Reason: Shortness Of Breath) pantoprazole 40 mg tablet,delayed release (DR/EC) 40 mg PO HS Centrum Adult 50 Plus 80 mcg Tablet,Chewable 1 tablet PO HS aspirin [Adult Low Dose Aspirin] 81 mg Tablet,Delayed Release (Dr/Ec) 81 mg PO DAILY Follow-up/Referrals: Felicia,Xochitl Wong M.D. [Primary Care Provider]
[2025-01-24] MEDS: LACTATED RINGERS 500 ML 999 ML IV CONT (13:41)
[2025-01-24] MEDS: HYDROmorphone HCL INJ (*CRX) 1 MG/ML SYR 0.5 MG IV PUSH ×4 (13:42→21:22)
[2025-01-24] MEDS: ONDANSETRON INJ 4 MG/2 ML VIAL IV PUSH ×2 (13:42→18:21)
--- NOTE | 2025-01-24 13:43 | PM.IMHP ---
H&P: HPI History of Present Illness Date/Time: 01/24/25 13:43 Chief Complaint: Lower GI bleed Narrative: 69-year-old female with a past medical history of COPD, RA, HTN, anxiety, chronic pain on long-term opioids presents to the ED on 01/24/2025 with complaints of bloody diarrhea and abdominal pain. Patient states she has had bloody stools ?off and on? for some time and has a colonoscopy scheduled in March. Patient states that abdominal cramping and increased passing of bright red blood per rectum began on 01/23 and states the amount of blood and the bright red color has never been like that before. Denies fever, chills, vomiting, chest pain or difficulty breathing. Denies urinary symptoms. Hypertensive on admit. 100% O2 sat on room air. Afebrile CBC revealed leukocytosis at 14.2. Hemoglobin stable at 12.5. Slight hyponatremia better than her baseline at 136. BUN 22. CT abdomen pelvis reveals severe colitis. 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, bilateral Chronic, continuous use of opioids 30 mg morphine x 2 years Hydrocephalus as child Emphysema lung Rupture of proximal biceps tendon Mass of right upper extremity Left knee pain Right knee DJD Chronic pain Anxiety Hypertension Rheumatoid arthritis Surgical History Surgical History History of colonoscopy approx 2018 S/P ventricular shunt placement H/O left knee surgery History of surgery on wrist ORIF 07/15/22 Family History Family History Unknown Arthritis Mother Kidney disease Social History Social History Social History: Smoking packs per day: 1 Smoking cigarettes per day: 20.0 Years smoked: 38 Smoking pack-years: 38.00 Smoking status: Former smoker Tobacco type: cigarettes Smoking end date: 11/03/06 Alcohol intake: never Substance use: never Substance use type: does not use Do You Feel Safe in your Home?: Yes Lack of Transportation: No Lack of Food: Never True Current Housing: I Have Housing Concerned About Future Housing: No Difficulty Paying Gas/Electric Bills: No Difficulty Paying for Meds: No Currently Unemployed: No Education: Associate Degree Difficulty w/ Childcare or Family Care: No Living arrangements: with family Additional living arrangements comments: Occupation/Education: occupation 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 ;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 [employer] Gender identity (if verbalized by the patient): Female Spiritual care concerns: No Meds Home Medications and Allergies Home Medications ?Medication ?Instructions ?Recorded ?Confirmed ?Type alprazolam 0.5 mg tablet 1 tablet PO BID PRN Anxiety 10/20/21 01/24/25 History albuterol sulfate 90 mcg/actuation 2 puff inhalation QID PRN 02/17/23 01/24/25 History aerosol inhaler Shortness Of Breath multivitamin with minerals-folic 1 tablet PO HS 02/17/23 01/24/25 History acid 80 mcg chewable tablet (Centrum Adult 50 Plus) pantoprazole 40 mg tablet,delayed 40 mg PO HS 02/17/23 01/24/25 History release aspirin 81 mg tablet,delayed 81 mg PO DAILY 03/19/23 01/24/25 History release (Adult Low Dose Aspirin) amlodipine 5 mg tablet 5 mg PO DAILY 11/29/24 01/24/25 History gabapentin 100 mg capsule 100 mg PO Q12H 11/29/24 01/24/25 History hydrocodone 5 mg-acetaminophen 325 1 tablet PO Q8H PRN pain 11/29/24 01/24/25 History mg tablet lisinopril 10 mg tablet 10 mg PO DAILY 01/02/25 01/24/25 History umeclidinium 62.5 mcg-vilanterol 1 inh inhalation DAILY #60 ea 01/02/25 01/24/25 Rx 25 mcg/actuation powdr for inhalation Allergies Allergy/AdvReac Type Severity Reaction Status Date / Time No Known Allergies Allergy Verified 01/24/25 16:42 Vital Signs Vital Signs - 24 hr 01/24/25 09:51 01/24/25 10:27 01/24/25 11:00 Temperature 97.6 F Pulse Rate 95 88 94 Respiratory Rate 20 20 25 H Blood Pressure 184/114 H 159/103 H 173/105 H Pulse Oximetry 100 96 95 Oxygen Delivery Room Air 01/24/25 12:15 01/24/25 12:17 01/24/25 12:18 Temperature Pulse Rate 103 H 95 105 H Respiratory Rate 24 H Blood Pressure 136/98 H 176/106 H 142/107 H Pulse Oximetry 98 Oxygen Delivery 01/24/25 12:18 01/24/25 13:00 Temperature Pulse Rate 105 H 96 Respiratory Rate 21 H Blood Pressure 136/98 H 180/115 H Pulse Oximetry 96 Oxygen Delivery Exam Narrative: GENERAL: non-toxic appearing, complaining of nausea. HEAD: Normocephalic, atraumatic. EYES: PERRLA. Conjunctivae clear. NOSE: Normal no drainage. THROAT: Pharynx clear, no exudate. NECK: Trachea midline. No adenopathy, no masses. RESPIRATORY: Airway patent, respirations nonlabored. CTA. CARDIOVASCULAR: Regular rate and rhythm BREASTS: Defer GASTROINTESTINAL: Abdomen is soft and mildly tender on palpation. No organomegaly. Bowel sounds normal in all quadrants. GENITOURINARY: Defer MUSCULOSKELETAL: Moves all extremities. No gross deformities. No calf tenderness. SKIN: Warm, dry, normal color. NEURO: A&O X4. Speech clear PSYCHIATRIC: Normal interaction H&P: Results Labs Labs: Short CBC 01/24/25 Range/Units 10:13 WBC 14.2 H (4.5-10.0) K/mm3 Hgb 12.5 D (12.0-15.0) g/dL Hct 39.2 (37.0-47.0) % Plt Count 294 (150-375) k/mm3 [facility] 01/24/25 10:13 Sodium 136 L Potassium 3.7 Chloride 103 Carbon Dioxide 26 BUN 22 H D Creatinine 0.98 Glucose 126 H Calcium 9.5 Liver Function 01/24/25 Range/Units 10:13 Total Bilirubin 0.3 (0.2-1.3) mg/dL AST 25 (14-36) U/L ALT 18 (6-35) U/L Alkaline Phosphatase 109 (38-126) U/L Albumin 4.1 (3.5-5.1) g/dL Assessment and Plan Assessment and plan (1) Colitis: Code(s): K52.9 - Noninfective gastroenteritis and colitis, unspecified Status: Acute Assessment and Plan: Diffuse abdominal cramping and passage of bright red blood per rectum. CT reveals severe colitis -1.5 L bolus in the ED -LR at 100 started 01/24 -ceftriaxone and Flagyl started on 01/24 -control nausea with Zofran -pain control with Dilaudid until patient is able to tolerate p.o. -clear liquids as tolerated (2) COPD (chronic obstructive pulmonary disease): Qualifiers: COPD type: unspecified COPD Qualified Code(s): J44.9 - Chronic obstructive pulmonary disease, unspecified Code(s): J44.9 - Chronic obstructive pulmonary disease, unspecified Status: Acute Assessment and Plan: Currently not in acute exacerbation. -the DuoNeb p.r.n. -continue Anoro Ellipta (3) Hypertension: Qualifiers: Hypertension type: primary hypertension Qualified Code(s): I10 - Essential (primary) hypertension Code(s): I10 - Essential (primary) hypertension Status: Chronic Assessment and Plan: BP 184/114 on admit. -resume home meds once patient is able to tolerate p.o.. -enalapril 1.25 mg IV push q.6 hours p.r.n. for SBP >150 Plan Diet: Clears as tolerated GI prophylaxis: Pantoprazole DVT prophylaxis: SCDs lines/drains: PIV Fluids: 1.5 L LR Code status: Full Quality VTE Prophylaxis VTE prophylaxis: mechanical ordered Hospitalist MIPS Advance Care Plan I have confirmed that the patient's Advanced Care Plan is present, code status is documented, or surrogate decision maker is listed in patient medical record.: Yes Medication Reconciliation I have utilized all available resources to obtain, update and review the patients current medications (includes all prescriptions, OTC, herbals, cannabis, and nutritional supplements).: Yes
[2025-01-24] MEDS: cefTRIAXone 1 GM in SODIUM CHLORIDE 0.9% IV 50 ML 100 ML IVPB (13:45)
[2025-01-24] MEDS: metroNIDAZOLE 500 MG/ISO 100ML 500 MG/100 ML BAG 100 MG IVPB ×2 (13:47→21:26)
[2025-01-24 14:42] LABS: Hematocrit 37.5 % (37.0-47.0); Hemoglobin 12.0 g/dL (12.0-15.0)
--- OUTSIDE RECORDS SUMMARY | 2025-01-24 15:09 | XMS_ITS | Clinical Summary ---
Author Organization [facility] [address] [place] Address [address] [place] [id number] Care Team Providers Care [employer] Mixing [employer] Superintendent Name Role Phone No, Physician Primary Care Provider [phone] Allergies Active Allergy Reactions Criticality Noted Date [...] on file Legal Sex Female 2:25 AM STUDENT RECORDS COORDINATOR Gender Identity Not on file Sexual Orientation Not on file Obstetrics History Last Filed Vital Signs Vital Sign Reading Time Taken Comments Blood Pressure 134/96 04/24/2021 9:01 AM STUDENT RECORDS COORDINATOR Pulse 54 04/24/2021 8:53 AM STUDENT RECORDS COORDINATOR Temperature 36.3 C (97.4 F) 04/24/2021 8:53 AM STUDENT RECORDS COORDINATOR Respiratory Rate 16 04/24/2021 8:53 AM STUDENT RECORDS COORDINATOR Oxygen Saturation 99% 04/24/2021 8:53 AM STUDENT RECORDS COORDINATOR Inhaled Oxygen Concentration - - Weight 68 kg (150 lb) 03/10/2024 10:36 AM STUDENT RECORDS COORDINATOR Height 167.6 cm (5' 6) 03/10/2024 10:36 AM STUDENT RECORDS COORDINATOR Body Mass Index 24.21 03/10/2024 10:36 AM STUDENT RECORDS COORDINATOR Plan of Treatment Health Maintenance Due Date [...] Insurance AETNA MEDICARE AETNA MEDICARE Care Teams [employer] Superintendent Relationship Specialty Start Date End Date No, Physician PCP - General 04/24/21
--- OUTSIDE RECORDS SUMMARY | 2025-01-24 15:09 | XMS_ITS | Patient Health Record ---
Author Organization [facility] Address [address] [place] [phone] Care Team Providers Care Education Reporter Name Role Phone Xochitl Duarte MD Primary Care Provider Unavail able Garfield Basilio Unavailable [phone] ALLERGIES Allergen (clinical drug ingredient) Drug/Non Drug [...] (primary) hypertension (I10) Active confirmed Essential hypertension (34180304) Problem Acute kidney failure, unspecified (N17.9) Active confirmed Acute renal failure syndrome (29436439) PLAN OF TREATMENT Future Test Test Name Order Date Ultrasound : Kidneys 09/11/2021 RENAL ARTERY DUPLEX 09/11/2021 RENAL PANEL 01/17/2022 RENAL PANEL 03/19/2022 Insurance Providers Payer Name Payer Address Payer Phone Subscriber Number Group Number Insured Name Patient Relationship to Insured Coverage Start Date Coverage End Date [employer] [facility] [address] [place] [address] [id number] Fara Valencia Self - patient is [...]
--- NOTE | 2025-01-24 16:30 | ADMGEN ---
This patient, Fara Valencia, was admitted to Medical Room 252-01. Patient/family oriented to hospital policies and general routines including ID bracelet, bed and alarms, visiting hours, pain management, procedures, bathroom and other care routines, personal items, smoking policy, room service/diet, and visiting hours. Information on how to activate the Rapid Response Team has been discussed. Patient/Family are encouraged to report perceived risks to care and to ask questions if they do not understand what they are told or what they should do.
[2025-01-24] MEDS: HYDROcodone/acetaminophen (*CRX) 5-325 MG TABLET 1 TAB PO (17:25)
[2025-01-24] MEDS: ASPIRIN 81 MG ENTERIC TABLET PO (17:25)
[2025-01-24] MEDS: ENALAPRILAT 1.25 MG/ML VIAL IV PUSH (18:23)
[2025-01-24 18:54] LABS: Hematocrit 38.0 % (37.0-47.0); Hemoglobin 12.1 g/dL (12.0-15.0)
[2025-01-24] MEDS: GABAPENTIN 100 MG CAPSULE PO (21:21)
[2025-01-24] MEDS: PANTOPRAZOLE 40 MG TABLET PO (21:21)
[2025-01-24] MEDS: LACTATED RINGERS 1,000 ML 100 ML IV CONT (21:26)
[2025-01-25 00:48] LABS: Hematocrit 36.3 % (37.0-47.0); Hemoglobin 11.5 g/dL (12.0-15.0)
[2025-01-25 04:43] LABS: Hematocrit 36.3 % (37.0-47.0); Hemoglobin 11.4 g/dL (12.0-15.0); Immature Granulocyte Percent A 0.6 % (0-0.5); Lymphocytes Absolute Auto 1.40 K/mm3 (0.9-3.2); Mean Corpuscular HGB Conc 31.4 g/dl (32-36); Mean Corpuscular Hemoglobin 29.6 pg (26-34); Mean Corpuscular Volume 94.3 fl (80-100); Nucleated Red Blood Cells Absolute Auto 0.000 K/mm3 (0.0-0.012); Nucleated Red Blood Cells Perc 0.0 % (0.0-0.2); Platelet Count Result 274 k/mm3 (150-375); Red Blood Count 3.85 M/mm3 (4.2-5.4); White Blood Count 17.0 K/mm3 (4.5-10.0)
[2025-01-25 04:59] LABS: Anion Gap 5 mmol/L (4-12); Blood Urea Nitrogen 16 mg/dL (7-17); Calcium 8.8 mg/dL (8.4-10.2); Carbon Dioxide 27 mmol/L (22-30); Chloride 100 mmol/L (98-107); Estimated CRCL calculation 56 ml/min; Estimated Glomerular Filt Rate > 60; Glucose 123 mg/dL (65-110); Potassium 3.4 mmol/L (3.4-5.0); Sodium 132 mmol/L (137-145)
[2025-01-25] MEDS: metroNIDAZOLE 500 MG/ISO 100ML 500 MG/100 ML BAG 100 MG IVPB ×3 (05:13→21:15)
[2025-01-25 06:45] VITALS: BP 127/87; PULSE 85; RESP 16; TEMP 36.8; O2SAT 93
[2025-01-25] MEDS: LACTATED RINGERS 1,000 ML 100 ML IV CONT (08:42)
[2025-01-25] MEDS: cefTRIAXone 1 GM in SODIUM CHLORIDE 0.9% IV 50 ML 100 ML IVPB (08:42)
[2025-01-25] MEDS: HYDROcodone/acetaminophen (*CRX) 5-325 MG TABLET 1 TAB PO ×2 (08:43→17:40)
[2025-01-25] MEDS: GABAPENTIN 100 MG CAPSULE PO ×2 (08:43→20:37)
[2025-01-25] MEDS: PANTOPRAZOLE SODIUM IV 40 MG VIAL IV PUSH (08:49)
[2025-01-25] MEDS: POTASSIUM CHLORIDE 20 MEQ PACKET (FOR LIQUID) 40 MEQ PO ×2 (08:52→17:36)
[2025-01-25 09:11] VITALS: PULSE 82; PULSE 86; RESP 20; O2SAT 92
[2025-01-25] MEDS: UMECLIDINIUM/VILANTEROL 62.5-25 MCG ELLIPTA 1 PUFF INHALATION (09:13)
--- NOTE | 2025-01-25 10:30 | P.PNIM_ITS ---
Progress Note: A&P Assessment and Plan (1) Diarrhea: Code(s): R19.7 - Diarrhea, unspecified Status: Acute (2) Colitis: Code(s): K52.9 - Noninfective gastroenteritis and colitis, unspecified Status: Acute (3) Acute dehydration: Code(s): E86.0 - Dehydration Status: Acute (4) Acute hypokalemia: Code(s): E87.6 - Hypokalemia Status: Resolved Plan 69-year-old female with a past medical history of COPD, RA, HTN, anxiety, chronic pain on long-term opioids presented to the ED on 01/24/2025 with complaints of bloody diarrhea and abdominal pain. Patient states she has had bloody stools ?off and on? for some time and has a colonoscopy scheduled in March. CT abdomen pelvis revealed severe colitis. 1. Bright red blood per rectum: Secondary to severe colitis: Supportive care IV PPI Clear liquid diet Zofran p.r.n. Monitor leukocytosis Monitor H&H GI consult Will obtain C diff Obtain blood culture Continue with ceftriaxone and Flagyl Supplement potassium 2. History of hypertension: Continue with home dose lisinopril, Norvasc 3. Continue with other home medications 4. DVT prophylaxis: SCDs 5. Code status: Full 6. Disposition: Pending improvement Time Spent With Patient Time: 38 minutes Subjective Date/time seen: 01/25/25 10:30 Interval history: no acute event overnight Not feeling well Denies abdominal pain Review of Systems Review of Systems: All systems reviewed & are unremarkable except as noted in HPI and below Exam Narrative: GENERAL: no acute distress HEAD: Normocephalic, atraumatic. EYES: Conjunctivae clear. NECK: supple RESPIRATORY:clear to auscultation CARDIOVASCULAR: Regular rate and rhythm GASTROINTESTINAL: Abdomen is soft and mildly tender on palpation. Bowel sounds normal in all quadrants. MUSCULOSKELETAL: no edeama SKIN: Warm, dry, normal color. NEURO: A&O X4. Objective Data Vital Signs Vital Signs: Vital Signs - 24 hr 01/24/25 11:00 01/24/25 12:15 01/24/25 12:17 Temperature Pulse Rate 94 103 H 95 Respiratory Rate 25 H 24 H Blood Pressure 173/105 H 136/98 H 176/106 H Pulse Oximetry 95 98 Oxygen Delivery Fraction of Inspired Oxygen 01/24/25 12:18 01/24/25 12:18 01/24/25 13:00 Temperature Pulse Rate 105 H 105 H 96 Respiratory Rate 21 H Blood Pressure 142/107 H 136/98 H 180/115 H Pulse Oximetry 96 Oxygen Delivery Fraction of Inspired Oxygen 01/24/25 14:00 01/24/25 14:39 01/24/25 14:45 Temperature Pulse Rate 97 97 100 Respiratory Rate 19 18 18 Blood Pressure 161/97 H 161/97 H Pulse Oximetry 98 95 Oxygen Delivery Fraction of Inspired Oxygen 01/24/25 15:15 01/24/25 15:37 01/24/25 17:18 Temperature 97.9 F Pulse Rate 100 98 91 Respiratory Rate 20 18 18 Blood Pressure 145/99 H 162/95 H 181/105 H Pulse Oximetry 93 93 96 Oxygen Delivery Fraction of Inspired Oxygen 01/24/25 18:04 01/24/25 18:57 01/24/25 19:50 Temperature Pulse Rate 92 87 Respiratory Rate Blood Pressure 149/95 H Pulse Oximetry 94 Oxygen Delivery Room Air Room Air Fraction of Inspired Oxygen 21 01/24/25 20:00 01/24/25 20:21 01/25/25 06:45 Temperature 97.7 F 98.3 F Pulse Rate 87 85 Respiratory Rate 16 16 Blood Pressure 149/92 H 127/87 Pulse Oximetry 94 93 Oxygen Delivery Room Air Fraction of Inspired Oxygen 01/25/25 08:00 01/25/25 09:11 01/25/25 09:11 Temperature Pulse Rate 86 82 Respiratory Rate 20 20 Blood Pressure Pulse Oximetry 92 Oxygen Delivery Room Air Room Air Fraction of Inspired Oxygen Intake/Output Intake/Output: Intake & Output 01/22/25 01/23/25 01/24/25 01/25/25 23:59 23:59 23:59 23:59 Intake Total 1840 1350 Output Total 400 Balance 1440 1350 Meds/Results Medications: Active Medications Generic Name Dose Route Start Last Admin Trade Name Freq PRN Reason Stop Dose Admin Hydrocodone Bitart/Acetaminophen 1 tab 01/24/25 16:58 01/25/25 08:43 Hydrocodone/Acetaminophen (*Crx) 5-325 Mg Tablet PO 1 tab Q8H PRN Administration Pain Albuterol/Ipratropium 3 ml 01/24/25 17:00 Ipratropium 0.5 Mg/Albuterol Sulfate 2.5 Mg (Base) Ampul.Neb 3 Ml INHALATION Q6HRT PRN Shortness Of Breath Or Wheezing Alprazolam 0.5 mg 01/24/25 16:58 Alprazolam (*Crx) 0.5 Mg Tablet PO BID PRN Anxiety Amlodipine Besylate 5 mg 01/24/25 17:00 01/25/25 08:43 Amlodipine Besylate 5 Mg Tablet PO 5 mg DAILY ABIODUN Administration Aspirin 81 mg 01/24/25 17:00 01/24/25 17:25 Aspirin 81 Mg Enteric Tablet PO 81 mg On Hold: 01/25/25 07:40 DAILY ABIODUN Administration Enalaprilat 1.25 mg 01/24/25 18:02 01/24/25 18:23 Enalaprilat 1.25 Mg/Ml Vial IV PUSH 1.25 mg Q6HR PRN Administration Blood Pressure - High Gabapentin 100 mg 01/24/25 21:00 01/25/25 08:43 Gabapentin 100 Mg Capsule PO 100 mg Q12HR ABIODUN Administration Hydromorphone HCl 0.5 mg 01/24/25 18:07 01/24/25 21:22 Hydromorphone Hcl Inj (*Crx) 1 Mg/Ml Syr IV PUSH 0.5 mg Q3H PRN Administration Pain Rated 7-10 Hydromorphone HCl 0.2 mg 01/24/25 18:09 Hydromorphone Hcl Inj (*Crx) 1 Mg/Ml Syr IV PUSH Q3H PRN Moderate Pain (4-6) Ceftriaxone Sodium 1 gm/ 50 mls @ 100 mls/hr 01/25/25 09:00 01/25/25 08:42 Sodium Chloride IVPB 100 mls/hr Q24H ABIODUN Administration Metronidazole 500 mg in 100 mls @ 100 mls/hr 01/24/25 22:00 01/25/25 05:13 Flagyl 500 Mg/Iso Soln 100 Ml IVPB 100 mls/hr Q8H ABIODUN Administration Lactated Ringer's 1,000 mls @ 100 mls/hr 01/24/25 19:35 01/25/25 08:42 Lr - Lactated Ringers Iv IV CONT 100 mls/hr .Q10H ABIODUN Administration Lisinopril 10 mg 01/24/25 17:00 01/25/25 08:43 Lisinopril 10 Mg Tablet PO 10 mg DAILY ABIODUN Administration Ondansetron HCl 4 mg 01/24/25 17:50 01/24/25 18:21 Ondansetron Inj 4 Mg/2 Ml Vial IV PUSH 4 mg Q4H PRN Administration Nausea And Vomiting Pantoprazole Sodium 40 mg 01/25/25 09:00 01/25/25 08:49 Pantoprazole Sodium Iv 40 Mg Vial IV PUSH 40 mg Q12HR ABIODUN Administration Potassium Chloride 40 meq 01/25/25 09:00 01/25/25 08:52 Potassium Chloride 20 Meq Packet (For Liquid) PO 01/25/25 17:01 40 meq BID BAIODUN Administration Umeclidinium/Vilanterol 1 puff 01/25/25 09:10 01/25/25 09:13 Umeclidinium/Vilanterol 62.5-25 Mcg Ellipta INHALATION 1 puff DAILYRT ABIODUN Administration Radiology Results: ITS Impressions Abdomen/Pelvis CT 01/24/25 11:55 IMPRESSION: 1. Severe colitis. No complicating features. Labs Labs: Laboratory Results - last 24 hr 01/24/25 01/24/25 01/24/25 10:13 14:31 18:29 WBC RBC Hgb 12.0 12.1 Hct 37.5 38.0 MCV MCH MCHC RDW Plt Count MPV Immature Gran % (Auto) Neut % (Auto) Lymph % (Auto) [place] % (Auto) Eos % (Auto) Baso % (Auto) Lymph # (Auto) [place] # (Auto) Eos # (Auto) Baso # (Auto) Abs Immat Gran (auto) Absolute Neuts (auto) Absolute Nucleated RBC Nucleated RBC % PT 12.8 INR 0.9 APTT 28.5 Sodium 136 L Potassium 3.7 Chloride 103 Carbon Dioxide 26 Anion Gap 7 BUN 22 H D Creatinine 0.98 Estim Creat Clear Calc 46 Estimated GFR 57 L Glucose 126 H Calcium 9.5 Total Bilirubin 0.3 AST 25 ALT 18 Alkaline Phosphatase 109 Total Protein 7.8 Albumin 4.1 Blood Type O Positive Antibody Screen Negative 01/25/25 01/25/25 00:16 04:27 WBC 17.0 H RBC 3.85 L Hgb 11.5 L 11.4 L Hct 36.3 L 36.3 L MCV 94.3 MCH 29.6 MCHC 31.4 L RDW 13.3 Plt Count 274 MPV 9.1 Immature Gran % (Auto) 0.6 H Neut % (Auto) 84.2 H Lymph % (Auto) 8.2 L [place] % (Auto) 6.2 Eos % (Auto) 0.4 Baso % (Auto) 0.4 Lymph # (Auto) 1.40 [place] # (Auto) 1.1 H Eos # (Auto) 0.1 Baso # (Auto) 0.1 Abs Immat Gran (auto) 0.10 H Absolute Neuts (auto) 14.4 H Absolute Nucleated RBC 0.000 Nucleated RBC % 0.0 PT INR APTT Sodium 132 L Potassium 3.4 Chloride 100 Carbon Dioxide 27 Anion Gap 5 BUN 16 Creatinine 0.80 Estim Creat Clear Calc 56 Estimated GFR > 60 Glucose 123 H Calcium 8.8 Total Bilirubin AST ALT Alkaline Phosphatase Total Protein Albumin Blood Type Antibody Screen Quality VTE Prophylaxis VTE prophylaxis: mechanical ordered
[2025-01-25] MEDS: ONDANSETRON INJ 4 MG/2 ML VIAL IV PUSH (13:15)
[2025-01-25] MEDS: HYDROmorphone HCL INJ (*CRX) 1 MG/ML SYR 0.5 MG IV PUSH (13:15)
[2025-01-25 14:00] VITALS: BP 128/74; PULSE 77; RESP 16; TEMP 37; O2SAT 93
--- NOTE | 2025-01-25 16:37 | WPDGICN ---
Assessment and Plan Assessment and plan (1) Colitis: Code(s): K52.9 - Noninfective gastroenteritis and colitis, unspecified Status: Acute Assessment and Plan: The patient is admitted with a picture of acute colitis, for which the primary differential diagnoses are C diff colitis?highly suggested by her recent hospitalization and broad-spectrum antibiotic exposure?and ischemic colitis, considering her age and hypertension. The chances of a colonic neoplasm is remote, as she reports multiple colonoscopies, the last five years ago, with findings limited to polyps. Given her current clinical improvement, we will defer colonoscopy and instead obtain a stool sample for C. diff toxin today to guide treatment. She has an upcoming elective colonoscopy in our service in a few weeks. I addition, proton pump inhibitors will be avoided, as they are contraindicated in this setting due to their association with increased C. diff infection and worsened outcomes. GI Consult Note Consult date/time: 01/25/25 16:37 Reason for consult: Bloody diarrhea HPI: Fara Valencia is a 69-year-old female admitted yesterday for a three-day history of bloody diarrhea and associated lower crampy abdominal pain. Her symptoms worsened the night prior to admission. She denies fever, vomiting, or syncopal episodes. She has a significant recent history of sepsis secondary to COVID-associated community-acquired pneumonia requiring a prolonged course of multiple antibiotics two months ago. On admission, she was empirically started on ceftriaxone and metronidazole. Since then, she has noted improvement, with a decreased frequency of bowel movements, and the amount of blood in the stools and her abdominal pain are both decreasing. However, her WBC count has risen from from 14.2 to [address] scan of the abdomen/pelvis showed non-specific, diffuse wall thickening of the entire colon. 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, bilateral Chronic, continuous use of opioids 30 mg morphine x 2 years Hydrocephalus as child Emphysema lung Rupture of proximal biceps tendon Mass of right upper extremity Left knee pain Right knee DJD Chronic pain Anxiety Hypertension Rheumatoid arthritis Surgical History Surgical History History of colonoscopy approx 2018 S/P ventricular shunt placement H/O left knee surgery History of surgery on wrist ORIF 07/15/22 Family History Family History Unknown Arthritis Mother Kidney disease Social History Social History Social History: Smoking packs per day: 1 Smoking cigarettes per day: 20.0 Years smoked: 38 Smoking pack-years: 38.00 Smoking status: Former smoker Tobacco type: cigarettes Smoking end date: 11/03/06 Alcohol intake: never Substance use: never Substance use type: does not use Do You Feel Safe in your Home?: Yes Lack of Transportation: No Lack of Food: Never True Current Housing: I Have Housing Concerned About Future Housing: No Difficulty Paying Gas/Electric Bills: No Difficulty Paying for Meds: No Currently Unemployed: No Education: Associate Degree Difficulty w/ Childcare or Family Care: No Living arrangements: with family Additional living arrangements comments: Occupation/Education: occupation Additional occupation/education comments: 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 ;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 [employer] Gender identity (if verbalized by the patient): Female Spiritual care concerns: No Meds Home Medications and Allergies Home Medications ?Medication ?Instructions ?Recorded ?Confirmed ?Type alprazolam 0.5 mg tablet 1 tablet PO BID PRN Anxiety 10/20/21 01/24/25 History albuterol sulfate 90 mcg/actuation 2 puff inhalation QID PRN 02/17/23 01/24/25 History aerosol inhaler Shortness Of Breath multivitamin with minerals-folic 1 tablet PO HS 02/17/23 01/24/25 History acid 80 mcg chewable tablet (Centrum Adult 50 Plus) pantoprazole 40 mg tablet,delayed 40 mg PO HS 02/17/23 01/24/25 History release aspirin 81 mg tablet,delayed 81 mg PO DAILY 03/19/23 01/24/25 History release (Adult Low Dose Aspirin) amlodipine 5 mg tablet 5 mg PO DAILY 11/29/24 01/24/25 History gabapentin 100 mg capsule 100 mg PO Q12H 11/29/24 01/24/25 History hydrocodone 5 mg-acetaminophen 325 1 tablet PO Q8H PRN pain 11/29/24 01/24/25 History mg tablet lisinopril 10 mg tablet 10 mg PO DAILY 01/02/25 01/24/25 History umeclidinium 62.5 mcg-vilanterol 1 inh inhalation DAILY #60 ea 01/02/25 01/24/25 Rx 25 mcg/actuation powdr for inhalation Allergies Allergy/AdvReac Type Severity Reaction Status Date / Time No Known Allergies Allergy Verified 01/24/25 16:42 Vital Signs Vital Signs - 24 hr 01/24/25 17:18 01/24/25 18:04 01/24/25 18:57 Temperature 97.9 F Pulse Rate 91 92 Respiratory Rate 18 Blood Pressure 181/105 H 149/95 H Pulse Oximetry 96 Oxygen Delivery Room Air Fraction of Inspired Oxygen 01/24/25 19:50 01/24/25 20:00 01/24/25 20:21 Temperature 97.7 F Pulse Rate 87 87 Respiratory Rate 16 Blood Pressure 149/92 H Pulse Oximetry 94 94 Oxygen Delivery Room Air Room Air Fraction of Inspired Oxygen 21 01/25/25 06:45 01/25/25 08:00 01/25/25 09:11 Temperature 98.3 F Pulse Rate 85 86 Respiratory Rate 16 20 Blood Pressure 127/87 Pulse Oximetry 93 92 Oxygen Delivery Room Air Room Air Fraction of Inspired Oxygen 01/25/25 09:11 01/25/25 14:00 Temperature 98.6 F Pulse Rate 82 77 Respiratory Rate 20 16 Blood Pressure 128/74 Pulse Oximetry 93 Oxygen Delivery Fraction of Inspired Oxygen Exam Const: General: cooperative and healthy appearing Resp: Effort & Inspection: normal respiratory effort and able to speak in complete sentences Auscultation: clear to auscultation bilaterally Cardio: Rate: regular rate Rhythm: regular rhythm GI: Inspection: normal to inspection GI Palp: No No hepatosplenomegaly present Auscultation: normal bowel sounds Rectal Exam: deferred Skin: General skin exam: normal color Psych: Appearance: grossly normal Mental Status: mental status grossly normal Results Labs 01/25/25 04:27 01/25/25 04:27 Labs: Short CBC 01/24/25 01/25/25 01/25/25 Range/Units 18:29 00:16 04:27 WBC 17.0 H (4.5-10.0) K/mm3 Hgb 12.1 11.5 L 11.4 L (12.0-15.0) g/dL Hct 38.0 36.3 L 36.3 L (37.0-47.0) % Plt Count 274 (150-375) k/mm3 [facility] 01/25/25 04:27 Sodium 132 L Potassium 3.4 Chloride 100 Carbon Dioxide 27 BUN 16 Creatinine 0.80 Glucose 123 H Calcium 8.8
--- NOTE | 2025-01-25 18:10 | PC.NURSE ---
Pt states she used the BSC 7-8 times today. This RN emptied her BSC with only toilet paper present and one very small amount of stool. No blood noted.
[2025-01-25 19:43] VITALS: BP 144/90; PULSE 78; RESP 16; TEMP 37; O2SAT 94
[2025-01-25 20:00] VITALS: O2SAT 97
[2025-01-25] MEDS: LACTATED RINGERS 1,000 ML 75 ML IV CONT (22:50)
[2025-01-25] MEDS: HYDROmorphone HCL INJ (*CRX) 1 MG/ML SYR 0.2 MG IV PUSH (22:51)
[2025-01-26] MEDS: metroNIDAZOLE 500 MG/ISO 100ML 500 MG/100 ML BAG 100 MG IVPB ×3 (05:17→21:15)
[2025-01-26 05:19] LABS: Hematocrit 33.3 % (37.0-47.0); Hemoglobin 10.4 g/dL (12.0-15.0); Immature Granulocyte Percent A 0.5 % (0-0.5); Lymphocytes Absolute Auto 1.75 K/mm3 (0.9-3.2); Mean Corpuscular HGB Conc 31.2 g/dl (32-36); Mean Corpuscular Hemoglobin 29.4 pg (26-34); Mean Corpuscular Volume 94.1 fl (80-100); Nucleated Red Blood Cells Absolute Auto 0.000 K/mm3 (0.0-0.012); Nucleated Red Blood Cells Perc 0.0 % (0.0-0.2); Platelet Count Result 249 k/mm3 (150-375); Red Blood Count 3.54 M/mm3 (4.2-5.4); White Blood Count 15.3 K/mm3 (4.5-10.0)
[2025-01-26 06:11] VITALS: BP 141/87; PULSE 72; RESP 16; TEMP 36.6; O2SAT 98
[2025-01-26 06:14] LABS: Anion Gap 4 mmol/L (4-12); Blood Urea Nitrogen 9 mg/dL (7-17); Calcium 8.8 mg/dL (8.4-10.2); Carbon Dioxide 28 mmol/L (22-30); Chloride 101 mmol/L (98-107); Estimated CRCL calculation 58 ml/min; Estimated Glomerular Filt Rate > 60; Glucose 97 mg/dL (65-110); Magnesium 1.8 mg/dL (1.6-2.3); Potassium 3.5 mmol/L (3.4-5.0); Sodium 133 mmol/L (137-145)
[2025-01-26] MEDS: GABAPENTIN 100 MG CAPSULE PO ×2 (08:27→21:16)
[2025-01-26] MEDS: HYDROcodone/acetaminophen (*CRX) 5-325 MG TABLET 1 TAB PO ×3 (08:27→23:32)
[2025-01-26] MEDS: cefTRIAXone 1 GM in SODIUM CHLORIDE 0.9% IV 50 ML 100 ML IVPB (08:28)
[2025-01-26] MEDS: UMECLIDINIUM/VILANTEROL 62.5-25 MCG ELLIPTA 1 PUFF INHALATION (08:36)
[2025-01-26 08:37] VITALS: PULSE 72; RESP 20; O2SAT 92
[2025-01-26] MEDS: POTASSIUM CHLORIDE 20 MEQ ER TABLET 40 MEQ PO (10:18)
--- NOTE | 2025-01-26 10:26 | PM.IMPN ---
Progress Note: A&P Assessment and Plan (1) Diarrhea: Code(s): R19.7 - Diarrhea, unspecified Status: Acute (2) Colitis: Code(s): K52.9 - Noninfective gastroenteritis and colitis, unspecified Status: Acute (3) Acute dehydration: Code(s): E86.0 - Dehydration Status: Acute (4) Acute hypokalemia: Code(s): E87.6 - Hypokalemia Status: Resolved Plan 69-year-old female with a past medical history of COPD, RA, HTN, anxiety, chronic pain on long-term opioids presented to the ED on 01/24/2025 with complaints of bloody diarrhea and abdominal pain. Patient states she has had bloody stools ?off and on? for some time and has a colonoscopy scheduled in March. CT abdomen pelvis revealed severe colitis. 1. Bright red blood per rectum: Secondary to severe colitis: Supportive care Tolerating soft diet Zofran p.r.n. Monitor leukocytosis, slowly improving Monitor H&H Appreciate GI help Will obtain C diff if stool sample is available Follow-up blood culture Continue with ceftriaxone and Flagyl Supplement potassium 2. History of hypertension: Continue with home dose Norvasc Increase the dose of lisinopril to 20 mg daily 3. Continue with other home medications 4. DVT prophylaxis: SCDs 5. Code status: Full 6. Disposition: Pending improvement, anticipate discharge within next 24 hours Time Spent With Patient Time: 38 minutes Subjective Date/time seen: 01/26/25 10:26 Interval history: No acute events overnight, slight abdominal tolerating diet Review of Systems Review of Systems: All systems reviewed & are unremarkable except as noted in HPI and below Exam Narrative: GENERAL: no acute distress HEAD: Normocephalic, atraumatic. EYES: Conjunctivae clear. NECK: supple RESPIRATORY:clear to auscultation CARDIOVASCULAR: Regular rate and rhythm GASTROINTESTINAL: Abdomen is soft and mildly tender on palpation. Bowel sounds normal in all quadrants. MUSCULOSKELETAL: no edeama SKIN: Warm, dry, normal color. NEURO: A&O X4. Objective Data Vital Signs Vital Signs: Vital Signs - 24 hr 01/25/25 14:00 01/25/25 19:43 01/25/25 20:00 Temperature 98.6 F 98.6 F Pulse Rate 77 78 Respiratory Rate 16 16 Blood Pressure 128/74 144/90 H Pulse Oximetry 93 94 97 Oxygen Delivery Nasal Cannula Oxygen Flow Rate 3 Fraction of Inspired Oxygen 21 01/26/25 06:11 01/26/25 08:37 01/26/25 08:37 Temperature 97.8 F Pulse Rate 72 72 72 Respiratory Rate 16 20 Blood Pressure 141/87 H Pulse Oximetry 98 92 Oxygen Delivery Room Air Oxygen Flow Rate Fraction of Inspired Oxygen Intake/Output Intake/Output: Intake & Output 01/23/25 01/24/25 01/25/25 01/26/25 23:59 23:59 23:59 23:59 Intake Total 1840 3270 350 Output Total 400 Balance 1440 3270 350 Meds/Results Medications: Active Medications Generic Name Dose Route Start Last Admin Trade Name Freq PRN Reason Stop Dose Admin Hydrocodone Bitart/Acetaminophen 1 tab 01/24/25 16:58 01/26/25 08:27 Hydrocodone/Acetaminophen (*Crx) 5-325 Mg Tablet PO 1 tab Q8H PRN Administration Pain Albuterol/Ipratropium 3 ml 01/24/25 17:00 Ipratropium 0.5 Mg/Albuterol Sulfate 2.5 Mg (Base) Ampul.Neb 3 Ml INHALATION Q6HRT PRN Shortness Of Breath Or Wheezing Alprazolam 0.5 mg 01/24/25 16:58 Alprazolam (*Crx) 0.5 Mg Tablet PO BID PRN Anxiety Amlodipine Besylate 5 mg 01/24/25 17:00 01/26/25 08:27 Amlodipine Besylate 5 Mg Tablet PO 5 mg DAILY ABIODUN Administration Aspirin 81 mg 01/24/25 17:00 01/24/25 17:25 Aspirin 81 Mg Enteric Tablet PO 81 mg On Hold: 01/25/25 07:40 DAILY ABIODUN Administration Enalaprilat 1.25 mg 01/24/25 18:02 01/24/25 18:23 Enalaprilat 1.25 Mg/Ml Vial IV PUSH 1.25 mg Q6HR PRN Administration Blood Pressure - High Gabapentin 100 mg 01/24/25 21:00 01/26/25 08:27 Gabapentin 100 Mg Capsule PO 100 mg Q12HR ABIODUN Administration Hydromorphone HCl 0.5 mg 01/24/25 18:07 01/25/25 13:15 Hydromorphone Hcl Inj (*Crx) 1 Mg/Ml Syr IV PUSH 0.5 mg Q3H PRN Administration Pain Rated 7-10 Hydromorphone HCl 0.2 mg 01/24/25 18:09 01/25/25 22:51 Hydromorphone Hcl Inj (*Crx) 1 Mg/Ml Syr IV PUSH 0.2 mg Q3H PRN Administration Moderate Pain (4-6) Ceftriaxone Sodium 1 gm/ 50 mls @ 100 mls/hr 01/25/25 09:00 01/26/25 08:28 Sodium Chloride IVPB 100 mls/hr Q24H ABIODUN Administration Metronidazole 500 mg in 100 mls @ 100 mls/hr 01/24/25 22:00 01/26/25 05:17 Flagyl 500 Mg/Iso Soln 100 Ml IVPB 100 mls/hr Q8H ABIODUN Administration Lactated Ringer's 1,000 mls @ 75 mls/hr 01/24/25 19:35 01/25/25 22:50 Lr - Lactated Ringers Iv IV CONT 01/26/25 19:34 75 mls/hr .[id number] ABIODUN Administration Lisinopril 20 mg 01/26/25 09:00 01/26/25 08:26 Lisinopril 20 Mg Tablet PO 20 mg DAILY ABIODUN Administration Ondansetron HCl 4 mg 01/24/25 17:50 01/25/25 13:15 Ondansetron Inj 4 Mg/2 Ml Vial IV PUSH 4 mg Q4H PRN Administration Nausea And Vomiting Umeclidinium/Vilanterol 1 puff 01/25/25 09:10 01/26/25 08:36 Umeclidinium/Vilanterol 62.5-25 Mcg Ellipta INHALATION 1 puff DAILYRT ABIODUN Administration Radiology Results: ITS Impressions Abdomen/Pelvis CT 01/24/25 11:55 IMPRESSION: 1. Severe colitis. No complicating features. Labs Labs: Laboratory Results - last 24 hr 01/26/25 04:56 WBC 15.3 H RBC 3.54 L Hgb 10.4 L Hct 33.3 L MCV 94.1 MCH 29.4 MCHC 31.2 L RDW 13.0 Plt Count 249 MPV 9.1 Immature Gran % (Auto) 0.5 Neut % (Auto) 79.5 H Lymph % (Auto) 11.5 L [place] % (Auto) 6.6 Eos % (Auto) 1.5 Baso % (Auto) 0.4 Lymph # (Auto) 1.75 [place] # (Auto) 1.0 H Eos # (Auto) 0.2 Baso # (Auto) 0.1 Abs Immat Gran (auto) 0.08 H Absolute Neuts (auto) 12.1 H Absolute Nucleated RBC 0.000 Nucleated RBC % 0.0 Sodium 133 L Potassium 3.5 Chloride 101 Carbon Dioxide 28 Anion Gap 4 BUN 9 D Creatinine 0.77 Estim Creat Clear Calc 58 Estimated GFR > 60 Glucose 97 Calcium 8.8 Magnesium 1.8 Quality VTE Prophylaxis VTE prophylaxis: mechanical ordered
--- NOTE | 2025-01-26 12:33 | WPDGIPROGNO ---
Progress Note: A&P Assessment and Plan (1) Diarrhea: Code(s): R19.7 - Diarrhea, unspecified Status: Acute Assessment and Plan: The patient reports a decreased frequency of nonbloody diarrheal episodes, though she still has several bowel movements daily. Her white blood cell count is trending down but remains elevated. She's currently receiving ceftriaxone and metronidazole for suspected infectious colitis. However, given her recent hospitalization and broad-spectrum antibiotic use, the clinical suspicion for C diff colitis remains high and testing is required. An adequate stool sample for C diff testing is still unavailable. For discharge to be considered, the patient's stool frequency and white count must improve, and C diff testing must be completed.. Subjective Date/time seen: 01/26/25 12:33 Objective Data Vital Signs Vital Signs: Vital Signs - 24 hr 01/25/25 14:00 01/25/25 19:43 01/25/25 20:00 Temperature 98.6 F 98.6 F Pulse Rate 77 78 Respiratory Rate 16 16 Blood Pressure 128/74 144/90 H Pulse Oximetry 93 94 97 Oxygen Delivery Nasal Cannula Oxygen Flow Rate 3 Fraction of Inspired Oxygen 21 01/26/25 06:11 01/26/25 08:20 01/26/25 08:37 Temperature 97.8 F Pulse Rate 72 72 Respiratory Rate 16 Blood Pressure 141/87 H Pulse Oximetry 98 92 Oxygen Delivery Room Air Room Air Oxygen Flow Rate Fraction of Inspired Oxygen 01/26/25 08:37 Temperature Pulse Rate 72 Respiratory Rate 20 Blood Pressure Pulse Oximetry Oxygen Delivery Oxygen Flow Rate Fraction of Inspired Oxygen Intake/Output Intake/Output: Intake & Output 01/23/25 01/24/25 01/25/25 01/26/25 23:59 23:59 23:59 23:59 Intake Total 1840 3270 640 Output Total 400 Balance 1440 3270 640 Meds/Results Medications: Active Medications Generic Name Dose Route Start Last Admin Trade Name Freq PRN Reason Stop Dose Admin Hydrocodone Bitart/Acetaminophen 1 tab 01/24/25 16:58 01/26/25 08:27 Hydrocodone/Acetaminophen (*Crx) 5-325 Mg Tablet PO 1 tab Q8H PRN Administration Pain Albuterol/Ipratropium 3 ml 01/24/25 17:00 Ipratropium 0.5 Mg/Albuterol Sulfate 2.5 Mg (Base) Ampul.Neb 3 Ml INHALATION Q6HRT PRN Shortness Of Breath Or Wheezing Alprazolam 0.5 mg 01/24/25 16:58 Alprazolam (*Crx) 0.5 Mg Tablet PO BID PRN Anxiety Amlodipine Besylate 5 mg 01/24/25 17:00 01/26/25 08:27 Amlodipine Besylate 5 Mg Tablet PO 5 mg DAILY ABIODUN Administration Aspirin 81 mg 01/24/25 17:00 01/24/25 17:25 Aspirin 81 Mg Enteric Tablet PO 81 mg On Hold: 01/25/25 07:40 DAILY ABIODUN Administration Enalaprilat 1.25 mg 01/24/25 18:02 01/24/25 18:23 Enalaprilat 1.25 Mg/Ml Vial IV PUSH 1.25 mg Q6HR PRN Administration Blood Pressure - High Gabapentin 100 mg 01/24/25 21:00 01/26/25 08:27 Gabapentin 100 Mg Capsule PO 100 mg Q12HR ABIODUN Administration Hydromorphone HCl 0.5 mg 01/24/25 18:07 01/25/25 13:15 Hydromorphone Hcl Inj (*Crx) 1 Mg/Ml Syr IV PUSH 0.5 mg Q3H PRN Administration Pain Rated 7-10 Hydromorphone HCl 0.2 mg 01/24/25 18:09 01/25/25 22:51 Hydromorphone Hcl Inj (*Crx) 1 Mg/Ml Syr IV PUSH 0.2 mg Q3H PRN Administration Moderate Pain (4-6) Ceftriaxone Sodium 1 gm/ 50 mls @ 100 mls/hr 01/25/25 09:00 01/26/25 08:58 Sodium Chloride IVPB Infused Q24H ABIODUN Infusion Metronidazole 500 mg in 100 mls @ 100 mls/hr 01/24/25 22:00 01/26/25 05:17 Flagyl 500 Mg/Iso Soln 100 Ml IVPB 100 mls/hr Q8H ABIODUN Administration Lactated Ringer's 1,000 mls @ 75 mls/hr 01/24/25 19:35 01/25/25 22:50 Lr - Lactated Ringers Iv IV CONT 01/26/25 19:34 75 mls/hr .[id number] ABIODUN Administration Lisinopril 20 mg 01/26/25 09:00 01/26/25 08:26 Lisinopril 20 Mg Tablet PO 20 mg DAILY ABIODUN Administration Ondansetron HCl 4 mg 01/24/25 17:50 01/25/25 13:15 Ondansetron Inj 4 Mg/2 Ml Vial IV PUSH 4 mg Q4H PRN Administration Nausea And Vomiting Umeclidinium/Vilanterol 1 puff 01/25/25 09:10 01/26/25 08:36 Umeclidinium/Vilanterol 62.5-25 Mcg Ellipta INHALATION 1 puff DAILYRT ABIODUN Administration Radiology Results: ITS Impressions Abdomen/Pelvis CT 01/24/25 11:55 IMPRESSION: 1. Severe colitis. No complicating features. Labs Labs: Laboratory Results - last 24 hr 01/26/25 04:56 WBC 15.3 H RBC 3.54 L Hgb 10.4 L Hct 33.3 L MCV 94.1 MCH 29.4 MCHC 31.2 L RDW 13.0 Plt Count 249 MPV 9.1 Immature Gran % (Auto) 0.5 Neut % (Auto) 79.5 H Lymph % (Auto) 11.5 L [place] % (Auto) 6.6 Eos % (Auto) 1.5 Baso % (Auto) 0.4 Lymph # (Auto) 1.75 [place] # (Auto) 1.0 H Eos # (Auto) 0.2 Baso # (Auto) 0.1 Abs Immat Gran (auto) 0.08 H Absolute Neuts (auto) 12.1 H Absolute Nucleated RBC 0.000 Nucleated RBC % 0.0 Sodium 133 L Potassium 3.5 Chloride 101 Carbon Dioxide 28 Anion Gap 4 BUN 9 D Creatinine 0.77 Estim Creat Clear Calc 58 Estimated GFR > 60 Glucose 97 Calcium 8.8 Magnesium 1.8
[2025-01-26 13:56] VITALS: BP 115/72; PULSE 78; RESP 14; TEMP 36.8; O2SAT 98
[2025-01-26 16:00] LABS: Toxigenic C. Diff NEGATIVE (NEGATIVE)
[2025-01-26] MEDS: ALPRAZolam (*CRX) 0.5 MG TABLET PO (21:27)
[2025-01-26 21:32] VITALS: BP 151/87; PULSE 70; RESP 20; TEMP 36.1; O2SAT 96
[2025-01-27 04:47] LABS: Hematocrit 32.2 % (37.0-47.0); Hemoglobin 10.2 g/dL (12.0-15.0); Immature Granulocyte Percent A 0.5 % (0-0.5); Lymphocytes Absolute Auto 2.30 K/mm3 (0.9-3.2); Mean Corpuscular HGB Conc 31.7 g/dl (32-36); Mean Corpuscular Hemoglobin 29.7 pg (26-34); Mean Corpuscular Volume 93.9 fl (80-100); Nucleated Red Blood Cells Absolute Auto 0.000 K/mm3 (0.0-0.012); Nucleated Red Blood Cells Perc 0.0 % (0.0-0.2); Platelet Count Result 261 k/mm3 (150-375); Red Blood Count 3.43 M/mm3 (4.2-5.4); White Blood Count 11.0 K/mm3 (4.5-10.0)
[2025-01-27] MEDS: metroNIDAZOLE 500 MG/ISO 100ML 500 MG/100 ML BAG 100 MG IVPB (05:08)
[2025-01-27 05:10] LABS: Anion Gap 4 mmol/L (4-12); Blood Urea Nitrogen 7 mg/dL (7-17); Calcium 8.8 mg/dL (8.4-10.2); Carbon Dioxide 28 mmol/L (22-30); Chloride 102 mmol/L (98-107); Estimated CRCL calculation 55 ml/min; Estimated Glomerular Filt Rate > 60; Glucose 89 mg/dL (65-110); Magnesium 1.7 mg/dL (1.6-2.3); Potassium 3.4 mmol/L (3.4-5.0); Sodium 134 mmol/L (137-145)
[2025-01-27 05:46] VITALS: BP 144/89; PULSE 70; RESP 20; TEMP 36.6; O2SAT 94
[2025-01-27 07:10] VITALS: PULSE 74; RESP 20
[2025-01-27] MEDS: UMECLIDINIUM/VILANTEROL 62.5-25 MCG ELLIPTA 1 PUFF INHALATION (07:10)
--- NOTE | 2025-01-27 07:11 | P.PNIM_ITS ---
Progress Note: A&P Assessment and Plan (1) Colitis: Code(s): K52.9 - Noninfective gastroenteritis and colitis, unspecified Status: Acute Assessment and Plan: CT showing Severe colitis. No complicating features. GI consulted GI r requiring negative C diff test before possible discharge C diff negative IV Flagyl and Rocephin Trending hemoglobin which is stable Leukocytosis improving Blood cultures pending Soft low-fiber diet (2) Acute blood loss anemia: Code(s): D62 - Acute posthemorrhagic anemia Status: Acute Assessment and Plan: Secondary to colitis Hemoglobin stable (3) Hypertension: Qualifiers: Hypertension type: primary hypertension Qualified Code(s): I10 - Essential (primary) hypertension Code(s): I10 - Essential (primary) hypertension Status: Chronic Assessment and Plan: Continue Norvasc Home lisinopril increased 20 mg (4) COPD (chronic obstructive pulmonary disease): Qualifiers: COPD type: unspecified COPD Qualified Code(s): J44.9 - Chronic obstructive pulmonary disease, unspecified Code(s): J44.9 - Chronic obstructive pulmonary disease, unspecified Status: Acute Assessment and Plan: Controlled Subjective Date/time seen: 01/27/25 07:11 Interval history: 69-year-old female with a past medical history of COPD, RA, HTN, anxiety, chronic pain on long-term opioids presented to the ED on 01/24/2025 with complaints of bloody diarrhea and abdominal pain. CT abdomen pelvis revealed severe colitis. Leukocytosis improved a.m. labs, hemoglobin stable, C diff and negative Review of Systems Review of Systems: 12 systems were reviewed and are negativ e except for as per HPI. Exam Narrative: General: well appearing, appears stated age. HEENT: normocephalic, atraumatic. Mucous membranes moist. EOMI, PERRLA, bilateral sclera anicteric, no conjunctival injection. Neck supple without JVD, lymphadenopathy, or bruit. Respiratory: clear to ascultation bilaterally. No rales/rhonic/wheezes. Cardiovascular: Regular rate and rhythm, normal S1-S2 upon ascultation. No murmurs, rubs, or clicks. PMI is nondisplaced, capillary refill less than 3 second. Abdomen: Soft, round, no pulsatile masses, nondistended and nontender. No rebound, no guarding. No CVA tenderness, no hepatosplenomegaly. Bowel sounds present to all four quadrants. No high pitch or tinkling sounds, resonant to percussion. Extremities: No cyanosis, clubbing, or edema present. Pulses are palpable 2/2. Active ROM to all four extremities. Neuro: Alert and orientated x 4. PERRLA. Cranial nerves 2-12 intact without focal deficit. Skin: Warm, dry, and intact, without rash, erythema, or lesion. Psych: pleasant, cooperative, normal speech, normal affect, no hallucinations, no dysarthia Objective Data Vital Signs Vital Signs: Vital Signs - 24 hr 01/26/25 08:20 01/26/25 08:37 01/26/25 08:37 Temperature Pulse Rate 72 72 Respiratory Rate 20 Blood Pressure Pulse Oximetry 92 Oxygen Delivery Room Air Room Air 01/26/25 13:56 01/26/25 20:00 01/26/25 21:32 Temperature 98.2 F 97 F L Pulse Rate 78 70 Respiratory Rate 14 20 Blood Pressure 115/72 151/87 H Pulse Oximetry 98 96 Oxygen Delivery Room Air 01/27/25 05:46 Temperature 98 F Pulse Rate 70 Respiratory Rate 20 Blood Pressure 144/89 H Pulse Oximetry 94 Oxygen Delivery Intake/Output Intake/Output: Intake & Output 01/24/25 01/25/25 01/26/25 01/27/25 23:59 23:59 23:59 23:59 Intake Total 1840 3270 1870 300 Output Total 400 Balance 1440 3270 1870 300 Meds/Results Medications: Active Medications Generic Name Dose Route Start Last Admin Trade Name Freq PRN Reason Stop Dose Admin Hydrocodone Bitart/Acetaminophen 1 tab 01/24/25 16:58 01/26/25 23:32 Hydrocodone/Acetaminophen (*Crx) 5-325 Mg Tablet PO 1 tab Q8H PRN Administration Pain Albuterol/Ipratropium 3 ml 01/24/25 17:00 Ipratropium 0.5 Mg/Albuterol Sulfate 2.5 Mg (Base) Ampul.Neb 3 Ml INHALATION Q6HRT PRN Shortness Of Breath Or Wheezing Alprazolam 0.5 mg 01/24/25 16:58 01/26/25 21:27 Alprazolam (*Crx) 0.5 Mg Tablet PO 0.5 mg BID PRN Administration Anxiety Amlodipine Besylate 5 mg 01/24/25 17:00 01/26/25 08:27 Amlodipine Besylate 5 Mg Tablet PO 5 mg DAILY ABIODUN Administration Aspirin 81 mg 01/24/25 17:00 01/24/25 17:25 Aspirin 81 Mg Enteric Tablet PO 81 mg On Hold: 01/25/25 07:40 DAILY ABIODUN Administration Enalaprilat 1.25 mg 01/24/25 18:02 01/24/25 18:23 Enalaprilat 1.25 Mg/Ml Vial IV PUSH 1.25 mg Q6HR PRN Administration Blood Pressure - High Gabapentin 100 mg 01/24/25 21:00 01/26/25 21:16 Gabapentin 100 Mg Capsule PO 100 mg Q12HR ABIODUN Administration Hydromorphone HCl 0.5 mg 01/24/25 18:07 01/25/25 13:15 Hydromorphone Hcl Inj (*Crx) 1 Mg/Ml Syr IV PUSH 0.5 mg Q3H PRN Administration Pain Rated 7-10 Hydromorphone HCl 0.2 mg 01/24/25 18:09 01/25/25 22:51 Hydromorphone Hcl Inj (*Crx) 1 Mg/Ml Syr IV PUSH 0.2 mg Q3H PRN Administration Moderate Pain (4-6) Ceftriaxone Sodium 1 gm/ 50 mls @ 100 mls/hr 01/25/25 09:00 01/26/25 08:58 Sodium Chloride IVPB Infused Q24H ABIODUN Infusion Metronidazole 500 mg in 100 mls @ 100 mls/hr 01/24/25 22:00 01/27/25 05:08 Flagyl 500 Mg/Iso Soln 100 Ml IVPB 100 mls/hr Q8H ABIODUN Administration Lisinopril 20 mg 01/26/25 09:00 01/26/25 08:26 Lisinopril 20 Mg Tablet PO 20 mg DAILY ABIODUN Administration Ondansetron HCl 4 mg 01/24/25 17:50 01/25/25 13:15 Ondansetron Inj 4 Mg/2 Ml Vial IV PUSH 4 mg Q4H PRN Administration Nausea And Vomiting Umeclidinium/Vilanterol 1 puff 01/25/25 09:10 01/27/25 07:10 Umeclidinium/Vilanterol 62.5-25 Mcg Ellipta INHALATION 1 puff DAILYRT ABIODUN Administration Radiology Results: ITS Impressions Abdomen/Pelvis CT 01/24/25 11:55 IMPRESSION: 1. Severe colitis. No complicating features. Labs Labs: Laboratory Results - last 24 hr 01/26/25 01/27/25 14:42 04:23 WBC 11.0 H RBC 3.43 L Hgb 10.2 L Hct 32.2 L MCV 93.9 MCH 29.7 MCHC 31.7 L RDW 13.0 Plt Count 261 MPV 9.2 Immature Gran % (Auto) 0.5 Neut % (Auto) 66.9 Lymph % (Auto) 21.0 [place] % (Auto) 7.7 Eos % (Auto) 3.1 Baso % (Auto) 0.8 Lymph # (Auto) 2.30 [place] # (Auto) 0.9 H Eos # (Auto) 0.3 Baso # (Auto) 0.1 Abs Immat Gran (auto) 0.06 H Absolute Neuts (auto) 7.3 H Absolute Nucleated RBC 0.000 Nucleated RBC % 0.0 Sodium 134 L Potassium 3.4 Chloride 102 Carbon Dioxide 28 Anion Gap 4 BUN 7 Creatinine 0.81 Estim Creat Clear Calc 55 Estimated GFR > 60 Glucose 89 Calcium 8.8 Magnesium 1.7 C. difficile (PCR) Negative Hospitalist MIPS Advance Care Plan I have confirmed that the patient's Advanced Care Plan is present, code status is documented, or surrogate decision maker is listed in patient medical record.: Yes Medication Reconciliation I have utilized all available resources to obtain, update and review the patients current medications (includes all prescriptions, OTC, herbals, cannabis, and nutritional supplements).: Yes
[2025-01-27] MEDS: cefTRIAXone 1 GM in SODIUM CHLORIDE 0.9% IV 50 ML 100 ML IVPB (08:21)
[2025-01-27] MEDS: GABAPENTIN 100 MG CAPSULE PO (08:21)
[2025-01-27] MEDS: LOPERAMIDE HCL 2 MG CAPSULE 4 MG PO (12:43)
[2025-01-27] MEDS: HYDROcodone/acetaminophen (*CRX) 5-325 MG TABLET 1 TAB PO (13:43)
[2025-01-27 14:00] VITALS: BP 132/79; PULSE 77; RESP 20; TEMP 36.5; O2SAT 100
--- NOTE | 2025-01-27 14:07 | P.DS_ITS ---
DS: Admitting Diagnosis Discharge Date 01/27/25 Admitting Diagnosis Diarrhea DS: Discharge Diagnosis Discharge Diagnosis (1) Colitis: Code(s): K52.9 - Noninfective gastroenteritis and colitis, unspecified Status: Acute Assessment and Plan: CT showing Severe colitis. No complicating features. GI consulted GI r requiring negative C diff test before possible discharge C diff negative IV Flagyl and Rocephin Trending hemoglobin which is stable Leukocytosis improving Blood cultures pending Soft low-fiber diet DC IV antibiotics and start p.o. Flagyl and Cipro (2) Acute blood loss anemia: Code(s): D62 - Acute posthemorrhagic anemia Status: Acute Assessment and Plan: Secondary to colitis Hemoglobin stable (3) Hypertension: Qualifiers: Hypertension type: primary hypertension Qualified Code(s): I10 - Essential (primary) hypertension Code(s): I10 - Essential (primary) hypertension Status: Chronic Assessment and Plan: Continue Norvas Home lisinopril increased 20 mg (4) COPD (chronic obstructive pulmonary disease): Qualifiers: COPD type: unspecified COPD Qualified Code(s): J44.9 - Chronic obstructive pulmonary disease, unspecified Code(s): J44.9 - Chronic obstructive pulmonary disease, unspecified Status: Acute Assessment and Plan: Controlled DS: Summary Hospital Course Reason for hospitalization: Colitis Hospital Course: 69-year-old female with a past medical history of COPD, RA, HTN, anxiety, chronic pain on long-term opioids presents to the ED on 01/24/2025 with complaints of bloody diarrhea and abdominal pain. Patient states she has had bloody stools ?off and on? for some time. Patient states that abdominal cramping and increased passing of bright red blood per rectum began on 01/23 and states the amount of blood and the bright red color has never been like that before. Patient was found to have acute colitis patient was started on Rocephin and Flagyl. C diff was tested which was negative. Leukocytosis has improved and patient is tolerating oral intake. She is stable to discharge home on p.o. medications. Patient has no complaints at this time. GI and recommended Cipro and Flagyl on discharge. Status at Discharge Functional status at discharge: independent ambulation Time Spent with Patient Time attestation: Total time spent providing and/or coordinating discharge services: Time spent: Greater than 30 minutes Exam Narrative: General: well appearing, appears stated age. HEENT: normocephalic, atraumatic. Mucous membranes moist. EOMI, PERRLA, bilateral sclera anicteric, no conjunctival injection. Neck supple without JVD, lymphadenopathy, or bruit. Respiratory: clear to ascultation bilaterally. No rales/rhonic/wheezes. Cardiovascular: Regular rate and rhythm, normal S1-S2 upon ascultation. No murmurs, rubs, or clicks. PMI is nondisplaced, capillary refill less than 3 second. Abdomen: Soft, round, no pulsatile masses, nondistended and nontender. No rebound, no guarding. No CVA tenderness, no hepatosplenomegaly. Bowel sounds present to all four quadrants. No high pitch or tinkling sounds, resonant to percussion. Extremities: No cyanosis, clubbing, or edema present. Pulses are palpable 2/2. Active ROM to all four extremities. Neuro: Alert and orientated x 4. PERRLA. Cranial nerves 2-12 intact without focal deficit. Skin: Warm, dry, and intact, without rash, erythema, or lesion. Psych: pleasant, cooperative, normal speech, normal affect, no hallucinations, no dysarthia DS: Data Data Completed and Pending Labs on day of discharge: Labs from last 24 hours 01/27/25 01/26/25 04:23 14:42 WBC 11.0 H RBC 3.43 L Hgb 10.2 L Hct 32.2 L MCV 93.9 MCH 29.7 MCHC 31.7 L RDW 13.0 Plt Count 261 MPV 9.2 Immature Gran % (Auto) 0.5 Neut % (Auto) 66.9 Lymph % (Auto) 21.0 [place] % (Auto) 7.7 Eos % (Auto) 3.1 Baso % (Auto) 0.8 Lymph # (Auto) 2.30 [place] # (Auto) 0.9 H Eos # (Auto) 0.3 Baso # (Auto) 0.1 Abs Immat Gran (auto) 0.06 H Absolute Neuts (auto) 7.3 H Absolute Nucleated RBC 0.000 Nucleated RBC % 0.0 Sodium 134 L Potassium 3.4 Chloride 102 Carbon Dioxide 28 Anion Gap 4 BUN 7 Creatinine 0.81 Estim Creat Clear Calc 55 Estimated GFR > 60 Glucose 89 Calcium 8.8 Magnesium 1.7 C. difficile (PCR) Negative Discharge Plan Discharge Consulting providers: Jose Raul Colón Discharging Clinician: Mary Kay Mckinley Anticipated Discharge Date/Time: 01/27/25 14:16 Patient Disposition: Home Activity: may shower Diet: low fiber Discharge Instructions: Discharge instructions: Take medications as prescribed New medications prescribed: Flagyl and Cipro for colitis You are activity as tolerated Monitor blood pressures Avoid social areas, you wear a mask when in social settings Encouraged to continue with yearly vaccinations Return to the emergency department if he developed sudden shortness of breath, chest pain, nausea, vomiting, upset stomach or intractable diarrhea Return to the emergency department if you develop fever greater than 101.5 Follow-up with: Your primary care physician within 1-2 weeks for post hospitalization check up Thank you for [facility] for your healthcare needs Patient Instructions: Antibiotic Form Patient Language: [place] Stand Alone Forms: General Discharge Information Follow-up/Referrals: Gio,Xochitl Wong M.D. [Primary Care Provider] - 2 Weeks Discharge Medications: New metronidazole 500 mg Tablet 500 mg PO Q6HR 3 Days Qty: 12 0RF ciprofloxacin HCl 500 mg tablet 500 mg PO Q12H 3 Days Qty: 6 0RF Continued alprazolam 0.5 mg tablet 1 tablet PO BID PRN (Reason: Anxiety) lisinopril 10 mg tablet 10 mg PO DAILY umeclidinium-vilanterol 62.5-25 mcg/actuation blister with device 1 inh inhalation DAILY Qty: 60 6RF amlodipine 5 mg tablet 5 mg PO DAILY hydrocodone-acetaminophen 5-325 mg tablet 1 tablet PO Q8H PRN (Reason: pain) gabapentin 100 mg capsule 100 mg PO Q12H albuterol sulfate 90 mcg/actuation HFA aerosol inhaler 2 puff INHALATION QID PRN (Reason: Shortness Of Breath) pantoprazole 40 mg tablet,delayed release (DR/EC) 40 mg PO HS Centrum Adult 50 Plus 80 mcg Tablet,Chewable 1 tablet PO HS aspirin [Adult Low Dose Aspirin] 81 mg Tablet,Delayed Release (Dr/Ec) 81 mg PO DAILY Date of admission: 01/24/25 13:47 Primary Care Provider: FeliciaXochitl Admitting Provider: Bc Tavera Attending physician on admission: Bc Tavera Condition: Stable Quality VTE Prophylaxis VTE prophylaxis: mechanical ordered Hospitalist MIPS Heart Failure (Exclusion) Patient has history of Heart Transplant or Left Ventricular Assistive Device?: No IF YES, STOP HERE Heart Failure (Qualifier) Patient has current or prior documentation of LVEF less than or equal to 40%, or mod/servere depressed LVSF?: No IF NO, STOP HERE
--- NOTE | 2025-01-27 15:52 | P.PNGI_ITS ---
Progress Note: A&P Assessment and Plan (1) Colitis: Code(s): K52.9 - Noninfective gastroenteritis and colitis, unspecified Status: Acute Assessment and Plan: clinically better she is going home to complete treatment no more pain (2) Diarrhea: Code(s): R19.7 - Diarrhea, unspecified Status: Acute Assessment and Plan: c diff negative she is already set up to have colonoscoyp this March (3) Abdominal pain: Code(s): R10.9 - Unspecified abdominal pain Status: Acute Assessment and Plan: resolved (4) Leukocytosis: Code(s): D72.829 - Elevated white blood cell count, unspecified Status: Inactive (5) Acute dehydration: Code(s): E86.0 - Dehydration Status: Acute Subjective Date/time seen: 01/27/25 14:52 Interval history: much better, no more abdominal pain, still diarrhea but slowed down and she is going home today Review of Systems Review of Systems: All systems reviewed & are unremarkable except as noted in HPI and below Exam Const: General: comfortable and no acute distress HENMT: Face/Nose/Sinus: Normal nares present Eyes: General: appearance normal, both eyes and all related structures Neck: Neck: no JVD Resp: Auscultation: clear to auscultation bilaterally Cardio: Rate: regular rate Rhythm: regular rhythm GI: Inspection: non-distended GI Palp: Yes Soft to palpation and No Tenderness to palpation present (GI) Auscultation: normal bowel sounds Skin: General skin exam: normal color Neuro: General: gait normal Speech: normal speech Extrem: General: normal to inspection Psych: Mental Status: mental status grossly normal Objective Data Vital Signs Vital Signs: Vital Signs - 24 hr 01/26/25 20:00 01/26/25 21:32 01/27/25 05:46 Temperature 97 F L 98 F Pulse Rate 70 70 Respiratory Rate 20 20 Blood Pressure 151/87 H 144/89 H Pulse Oximetry 96 94 Oxygen Delivery Room Air 01/27/25 07:10 01/27/25 08:21 01/27/25 14:00 Temperature 97.7 F Pulse Rate 74 77 Respiratory Rate 20 20 Blood Pressure 132/79 Pulse Oximetry 100 Oxygen Delivery Room Air Intake/Output Intake/Output: Intake & Output 01/24/25 01/25/25 01/26/25 01/27/25 23:59 23:59 23:59 23:59 Intake Total 1840 3270 1870 715 Output Total 400 Balance 1440 3270 1870 715 Meds/Results Radiology Results: ITS Impressions Abdomen/Pelvis CT 01/24/25 11:55 IMPRESSION: 1. Severe colitis. No complicating features. Labs Labs: Laboratory Results - last 24 hr 01/26/25 01/27/25 14:42 04:23 WBC 11.0 H RBC 3.43 L Hgb 10.2 L Hct 32.2 L MCV 93.9 MCH 29.7 MCHC 31.7 L RDW 13.0 Plt Count 261 MPV 9.2 Immature Gran % (Auto) 0.5 Neut % (Auto) 66.9 Lymph % (Auto) 21.0 [place] % (Auto) 7.7 Eos % (Auto) 3.1 Baso % (Auto) 0.8 Lymph # (Auto) 2.30 [place] # (Auto) 0.9 H Eos # (Auto) 0.3 Baso # (Auto) 0.1 Abs Immat Gran (auto) 0.06 H Absolute Neuts (auto) 7.3 H Absolute Nucleated RBC 0.000 Nucleated RBC % 0.0 Sodium 134 L Potassium 3.4 Chloride 102 Carbon Dioxide 28 Anion Gap 4 BUN 7 Creatinine 0.81 Estim Creat Clear Calc 55 Estimated GFR > 60 Glucose 89 Calcium 8.8 Magnesium 1.7 C. difficile (PCR) Negative
== END 2025-01-27 15:24 | disposition home or self-care (01) | DRG 392 ==
LOC: ANHED 13:12 → ANH2MED 14:17
PROVIDERS: Internal Medicine; Nurse Practitioner Adult Health; Physician Assistant; Admitting Provider General Practice; Emergency Provider Emergency Medicine; PCP Internal Medicine; Visit Provider Nurse Practitioner Gerontology
DX: K52.89 Other specified noninfective gastroenteritis and colitis (principal); E87.1 Hypo-osmolality and hyponatremia; D62 Acute posthemorrhagic anemia; J44.9 Chronic obstructive pulmonary disease, unspecified; G89.29 Other chronic pain; F41.9 Anxiety disorder, unspecified; I10 Essential (primary) hypertension; M17.0 Bilateral primary osteoarthritis of knee; M06.9 Rheumatoid arthritis, unspecified; E86.0 Dehydration; E87.6 Hypokalemia; M54.89 Other dorsalgia; Q03.9 Congenital hydrocephalus, unspecified; Z87.891 Personal history of nicotine dependence; Z98.2 Presence of cerebrospinal fluid drainage device; Z86.0100 Personal history of colon polyps, unspecified; Z86.16 Personal history of COVID-19; Z79.82 Long term (current) use of aspirin; Z79.891 Long term (current) use of opiate analgesic
CPT/HCPCS: 36415; 74177; 80048; 80053; 83735; 85014; 85018; 85025; 85610; 85730; 86850; 86900; 86901; 87040; 87493; 94640; 96361; 96374; 96375; 99285; A9270; J0696; J1171; J1836; J2405; J2470; J7120; Q9967

== ENCOUNTER 2025-03-13 00:58 | Day surgery (SDC) | payer MEDICARE, SELFPAY ==
--- OUTSIDE RECORDS SUMMARY | 2023-03-05 03:22 | XMS_ITS | Continuity of Care Document ---
Author Organization [facility] Address [address] [facility] [address] [place] [address] Phone Care Team Providers Care Scaffold Setter Name Role Phone Woodrow Mendoza MD Unavailable Unavailable Allergies, Adverse Reactions, Alerts Substance Reaction Status Criticality No Known Allergies Active No Inform ation Medications Medication Instructions Dosage Effective Dates (start - stop) Status Comments aspirin 325 mg tablet take 1 tablet twice a day with food for 15 days - Active Enteric Coated hydrocodone 5 mg-acetaminophen 325 mg tablet take 1 - 2 Tablet by oral route every 6 hours as needed for pain - Active morphine ER 30 mg tablet,extended release - Active prednisone 20 mg tablet TAKE 2 TABLETS B Y MOUTH EVERY DAY FOR 7 DAYS - Active pantoprazole 40 mg tablet,delayed release - Active ciprofloxacin 250 mg tablet TAKE 1 TABLET BY MOUTH EVERY 12 HOURS - Active nebivolol 20 mg tablet TAKE 1 TABLET BY MOUTH EVERY DAY - Active lisinopril 20 mg tablet - Ac tive Spiriva Respimat 2.5 mcg/actuation solution for inhalation - Active azithromycin 250 mg tablet - Active alprazolam 0.5 mg tablet TAKE 1 TABLET B Y MOUTH TWICE DAILY NEEDED - Active doxazosin 4 mg tablet TAKE 2 TABLETS BY MOUTH EVERY DAY - Active hydrocodone 5 mg-acetaminophen 325 mg tablet TAKE 1 TABLET BY MOUTH EVERY 6 HOURS NEEDED FOR MODERATE PAIN - Active cefpodoxime 100 mg tablet TAKE 2 TABLETS BY MOUTH EVERY 12 HOURS WITH FOOD FOR 5 DAYS - Active cyclobenzaprine 10 mg tablet TAKE 1 TABLET BY MOUTH EVERY 12 HOURS - Active methylprednisolone 4 mg tablets in a dose pack FOLLOW PACKAGE DIRECTIONS - Active BinaxNOW COVID-19 Ag Self Test kit TEST DIRECTED TODAY - Active aspirin 81 mg chewable tablet chew 1 tablet by oral route every day 81 MG - Active Procedures Procedure Date POSTOP FOLLOW-UP VISIT KNEE ARTHROSCOPY/SURGERY OFFICE/OUTPATIENT VISIT EST POSTOP FOLLOW-UP VISIT POSTOP FOLLOW-UP VISIT RADEX KNE 3 VIEWS POSTOP FOLLOW-UP VISIT MRI JT Lower w/o Contrast OFFICE/OUTPATIENT VISIT NEW Advance Directives Directive Yes / No Effective Date File Name No Information Encounters Encounter Description Practice Location Reason(s) For Visit Diagnoses Date Provider Providers Copied on Encounter [facility], [address] [address], [place], [address], [place] tel:[phone] [facility] No Information 3 Kelly Troy. [address], [place], [place], [address]. tel:[phone] [facility], [address], [place], [address], [place] tel:[phone] [facility] S/P left knee arthroscopyPri dana osteoarthritis of right knee 3 Kelly Troy. [address], [place], [place], [address]. tel:[phone] Referring Provider: Xochitl Duarte, [address], [place], [address] . tel:[phone] [facility], [address], [place], [address], [place] tel:[phone] [facility] No Information 3 Kelly Troy. [address], [place], [place], [address]. tel:[phone] [facility], [address], [place], [address], [place] tel:[phone] [facility] Tear of medial meniscus of left knee, current, unspecified tear type, subsequent encounterPrima ry osteoarthritis of left knee Jan- 3 Kelly Troy. [address], [place], [place], [id number]. tel:[phone] OFFICE/OUTPA TIENT VISIT EST [facility], [address], [place], [address], [place] tel:[phone] [facility] Tear of medial meniscus of left knee, current, unspecified tear type, subsequent encounterPrima ry osteoarthritis of right knee Jan- 3 Kelly Troy. [address], [place], [place], [address]. tel:[phone] Referring Provider: [address], [place], [address] . tel:[phone] [facility], [address], [place], [address], [place] tel:[phone] [facility] Primary osteoarthritis of left kneePatellofem oral arthritis of right knee Sep-1 3 Colin Franny. [address], [place], [place], [address]. tel:[phone] Referring Provider: [address], [place], [address] . tel:[phone] [facility], [address], [place], [address], [place] tel:[phone] [facility] Primary osteoarthritis of left kneePatellofem oral arthritis of right knee Sep-0 6- 3 Colin Franny. [address], [place], [place], [address]. tel:[phone] Referring Provider: [address], [place], [address] . tel:[phone] [facility], [address] [address], [place], [address], [place] tel:[phone] [facility] Right knee pain, unspecified chronicityPate llofemoral arthritis of right kneeTear of medial meniscus of left knee, initial encounterPrima ry osteoarthritis of left knee 3 Cristi Franny. [address], [place], [place], [id number]. tel:[phone] Referring Provider: Xochitl Duarte, [address], [place], [address] . tel:[phone] [facility], [address] [facility] [address], [place], [address], [place] tel:[phone] [facility] Unspecified internal derangement of left knee 3 No Information Referring Provider: Woodrow Mendoza, [address], [place], [address] . tel:[phone] OFFICE/OUTPA TIENT VISIT NEW [facility], [address] [facility] [address], [place], [address], [place] tel:[phone] [facility] Internal derangement of left kneeLeft knee pain, unspecified chronicity 3 Kelly Troy. [address], [place], [place], [address]. tel:[phone] Referring Provider: Xochitl Duarte, [address], [place], [address] . tel:[phone] Family History Family Member Type Diagnosis Age At Onset Mother Problem Alive and well Father Problem (finding) Payers Payer name Insurance type Covered constitution party ID Authoriza tion(s) Medicare E2 OT [id number] [place] [id number] or after OT [id number] Social History Type Description Quantity Date Captured Comments Alcohol Use Details Unknown Caffeine Use Details Unknown Tobacco Use Status No Information Smoking Status No Information Sex Female Chief Complaint And Reason For Visit No Information Reason For Referral Reason For Referral No Information Plan Of Treatment Date Type Action Status Referral Ordered: RADEX KNE 3 VIEWS RT ordered Referral Ordered: MRI JT Lower w/o Contrast LT knee ordered History Of Present Illness Encounter Date Complaint History Of Prese nt Illness No Information Functional Status Date Functional Assessmen t No Information Instructions Date Instruction Additional Infor mation No Information Assessments Type Assessment Date No Information Patient Care Teams Name Effective Dates (start - stop) Status Members No Information
[2025-02-19 13:01] VITALS: BMI 26.6
--- OUTSIDE RECORDS SUMMARY | 2025-03-12 03:06 | XMS_ITS | Continuity of Care Document ---
Author Organization [facility] Address [address] [place] [address] Phone Care Team Providers Care Cut In Station Operator Name Role Phone Xochitl Duarte MD Unavailable Unavailable Allergies, Adverse Reactions, Alerts Substance Reaction Status Criticality meloxicam Bleeding Active No Information indomethacin Nausea Active No Information Medications Medication Instructions Dosage Dose Quantity Effective Dates (start - stop) Status Indication Fill Status Comments hydrocodone 5 mg-acetamino phen 325 mg tablet take 1 tablet by oral route every 8 hours as needed for pain 1 tablet 5 - Active gabapentin 100 mg capsule take 2 capsules by mouth 3 times every day 5 MG 1 tablet 5 - Active Dose increase 02/14/25 Anoro Ellipta 62.5 mcg-25 mcg/actuatio n powder for inhalation inhale 1 puff by inhalation route every day at the same time each day 5 MG 1 tablet 5 - Active 2 samples given. Xanax 0.5 mg tablet TAKE ONE TABLET BY MOUTH TWICE DAILY NEEDED. 5 MG 1 tablet 5 - Active Anxiety state, unspecified ANXIETY STATE NOS amlodipine 5 mg tablet take 1 tablet by oral route every day 5 MG 1 tablet 5 - Active lisinopril 20 mg tablet take 1 tablet once daily 5 MG 1 tablet 5 - Active aspirin 81 mg tablet,delay ed release take 1 tablet by oral route every day 5 MG 1 tablet 5 - Active Centrum Silver Women 8 mg iron-400 mcg-50 mcg tablet take 1 capsule by oral route every day 1 capsule 5 - Active HYDROCORTISO NE AC 30 MG SUPP INSERT 1 SUPPOSITORY BY RECTAL ROUTE 2 TIMES EVERY DAY NEEDED 5 MG 1 tablet 5 - Active ESTRADIOL 0.01% CREAM INSERT 1 GRAM VAGINALLY 2 TIMES EVERY WEEK 5 MG 1 tablet 5 - Active Lotrimin AF (clotrimazol e) 1 % topical cream apply by topical route 2 times every day to the affected and surrounding areas of skin in the morning and evening 5 MG 1 tablet 5 - Active PROBIOTIC (unknown strength) take 1 tablet by oral route every day Not Availab le - Active Problems Condition Type Effective Dates (start - stop) Diagnosed Date Clinical Status Comments Finding of increased blood pressure Problem (finding) - Active (qualifier value) Osteopenia Problem (finding) - Active (qualifier value) Generalized osteoarthritis Problem (finding) - Active (qualifier value) Tobacco user Problem (finding) - Active (qualifier value) Anxiety state Problem (finding) - Active (qualifier value) Urinary tract infectious disease Problem (finding) - Active (qualifier value) Atherosclerosis of aorta Problem (finding) Active (qualifier value) Benign hypertensive renal disease Problem (finding) Active (qualifier value) Benign hypertensive renal disease Problem (finding) Active (qualifier value) Benign hypertensive renal disease Problem (finding) Active (qualifier value) Infectious gastroenteritis Problem (finding) Active (qualifier value) Hypotensive episode Problem (finding) Active (qualifier value) Pneumonia Problem (finding) Active (qualifier value) Benign hypertensive renal disease Problem (finding) Active (qualifier value) Non-thrombocytopenic purpura Problem (finding) Active (qualifier value) Aneurysm of descending thoracic aorta Problem (finding) Active (qualifier value) Pain in right foot Problem (finding) Active (qualifier value) Pain of bilateral knee joints Problem (finding) Active (qualifier value) Aneurysm of thoracic aorta Problem (finding) Active (qualifier value) Chronic anxiety Problem (finding) Active (qualifier value) Pulmonary emphysema Problem (finding) Active (qualifier value) Microcytic hypochromic anemia Problem (finding) Active (qualifier value) Benign hypertensive renal disease Problem (finding) Active (qualifier value) Chronic kidney disease stage 3A Problem (finding) Active (qualifier value) Pain of left knee joint Problem (finding) Active (qualifier value) Pulmonary emphysema Problem (finding) Active (qualifier value) Pulmonary emphysema Problem (finding) Active (qualifier value) Aneurysm of thoracic aorta Problem (finding) Active (qualifier value) Chronic kidney disease stage 3A Problem (finding) Active (qualifier value) Benign hypertensive renal disease Problem (finding) Active (qualifier value) Chronic kidney disease stage 3A Problem (finding) Active (qualifier value) Bilateral osteoarthritis of knees Problem (finding) Active (qualifier value) Chronic kidney disease stage 3A Problem (finding) Active (qualifier value) Benign hypertensive renal disease Problem (finding) Active (qualifier value) Benign hypertensive renal disease Problem (finding) Active (qualifier value) Acute cystitis Problem (finding) Active (qualifier value) Iron deficiency anemia Problem (finding) Active (qualifier value) Hypoxemia Problem (finding) Active (qualifier value) Benign hypertensive renal disease Problem (finding) Active (qualifier value) Atherosclerosis of aorta Problem (finding) Active (qualifier value) Pulmonary emphysema Problem (finding) Active (qualifier value) Pulmonary emphysema Problem (finding) Active (qualifier value) Bilateral osteoarthritis of knees Problem (finding) Active (qualifier value) Bone density finding Problem (finding) Active (qualifier value) Benign essential hypertension Problem (finding) Active (qualifier value) Chronic kidney disease stage 3A Problem (finding) Active (qualifier value) Non-thrombocytopenic purpura Problem (finding) Active (qualifier value) Dysuria-frequency syndrome Problem (finding) Active (qualifier value) Hypotensive episode Problem (finding) Active (qualifier value) Chronic hypoxemic respiratory failure Problem (finding) Active (qualifier value) Osteoarthritis of multiple joints Problem (finding) Active (qualifier value) Non-thrombocytopenic purpura Problem (finding) Active (qualifier value) Atherosclerosis of aorta Problem (finding) Active (qualifier value) Caregiver annual health check Problem (finding) Active (qualifier value) Chronic kidney disease stage 3A Problem (finding) Active (qualifier value) Closed fracture of orbital floor Problem (finding) Active (qualifier value) Atherosclerosis of aorta Problem (finding) Active (qualifier value) Bilateral osteoarthritis of knees Problem (finding) Active (qualifier value) Lumbar radiculopathy Problem (finding) Active (qualifier value) Chronic kidney disease stage 3A Problem (finding) Active (qualifier value) Pulmonary emphysema Problem (finding) Active (qualifier value) Chronic anxiety Problem (finding) Active (qualifier value) Non-thrombocytopenic purpura Problem (finding) Active (qualifier value) Chronic kidney disease stage 3A Problem (finding) Active (qualifier value) Peripheral vascular disease Problem (finding) Active (qualifier value) Recurrent falls Problem (finding) Active (qualifier value) Benign hypertensive renal disease Problem (finding) Active (qualifier value) Benign hypertensive renal disease Problem (finding) Active (qualifier value) Benign hypertensive renal disease Problem (finding) Active (qualifier value) Impacted cerumen of bilateral ears Problem (finding) Active (qualifier value) Chronic kidney disease stage 3A Problem (finding) Active (qualifier value) Chronic kidney disease stage 3A Problem (finding) Active (qualifier value) Hypoxia Problem (finding) Active (qualifier value) Atherosclerosis of aorta Problem (finding) Active (qualifier value) Acute cystitis Problem (finding) Active (qualifier value) Atherosclerosis of aorta Problem (finding) Active (qualifier value) Pulmonary emphysema Problem (finding) Active (qualifier value) Benign hypertensive renal disease Problem (finding) Active (qualifier value) Aneurysm of thoracic aorta Problem (finding) Active (qualifier value) Benign hypertensive renal disease Problem (finding) Active (qualifier value) Pulmonary emphysema Problem (finding) Active (qualifier value) Pulmonary emphysema Problem (finding) Active (qualifier value) Thoracic aortic aneurysm without rupture Problem (finding) Active (qualifier value) Benign hypertensive renal disease Problem (finding) Active (qualifier value) Benign hypertensive renal disease Problem (finding) Active (qualifier value) Bilateral osteoarthritis of knees Problem (finding) Active (qualifier value) Chronic kidney disease stage 3A Problem (finding) Active (qualifier value) Mild cognitive disorder Problem (finding) Active (qualifier value) Benign essential hypertension Problem (finding) Active (qualifier value) Benign essential hypertension Problem (finding) Active (qualifier value) Benign hypertensive renal disease Problem (finding) Active (qualifier value) Non-thrombocytopenic purpura Problem (finding) Active (qualifier value) Pulmonary emphysema Problem (finding) Active (qualifier value) Anemia Problem (finding) Active (qualifier value) Chronic kidney disease stage 3A Problem (finding) Active (qualifier value) Primary chronic pain Problem (finding) Active (qualifier value) Leukocytosis Problem (finding) Active (qualifier value) Pulmonary emphysema Problem (finding) Active (qualifier value) Pain of right knee joint Problem (finding) Active (qualifier value) Wax in ear canal Problem (finding) Active (qualifier value) Chronic kidney disease stage 3A Problem (finding) Active (qualifier value) Benign hypertensive renal disease Problem (finding) Active (qualifier value) Pulmonary emphysema Problem (finding) Active (qualifier value) Degeneration of cervical intervertebral disc Problem (finding) Active (qualifier value) Atherosclerosis of aorta Problem (finding) Active (qualifier value) Left lower zone pneumonia Problem (finding) Active (qualifier value) Hypokalemia Problem (finding) Active (qualifier value) Pulmonary emphysema Problem (finding) Active (qualifier value) Benign hypertensive renal disease Problem (finding) Active (qualifier value) Atherosclerosis of aorta Problem (finding) Active (qualifier value) Benign hypertensive renal disease Problem (finding) Active (qualifier value) Pulmonary emphysema Problem (finding) Active (qualifier value) Lower urinary tract infectious disease Problem (finding) Active (qualifier value) Bone density finding Problem (finding) Active (qualifier value) Vitamin D deficiency Problem (finding) Active (qualifier value) Aneurysm of thoracic aorta Problem (finding) Active (qualifier value) Hyponatremia Problem (finding) Active (qualifier value) Fracture of carpal bone Problem (finding) Active (qualifier value) Degeneration of cervical intervertebral disc Problem (finding) Active (qualifier value) Strain of tendon of upper arm Problem (finding) Active (qualifier value) Benign hypertensive renal disease Problem (finding) Active (qualifier value) Chronic kidney disease stage 3 Problem (finding) Active (qualifier value) Ground glass opacity Problem (finding) Active (qualifier value) Chronic kidney disease stage 3A Problem (finding) Active (qualifier value) Tobacco user Problem (finding) Active (qualifier value) Pneumonia Problem (finding) Active (qualifier value) Impacted cerumen of bilateral ears Problem (finding) Active (qualifier value) Benign essential hypertension Problem (finding) Active (qualifier value) Dehydration Problem (finding) Active (qualifier value) Pulmonary emphysema Problem (finding) Active (qualifier value) Chronic kidney disease stage 3A Problem (finding) Active (qualifier value) Vitamin D deficiency Problem (finding) Active (qualifier value) Benign essential hypertension Problem (finding) Active (qualifier value) Strain of biceps brachii muscle and/or tendon Problem (finding) Active (qualifier value) Tobacco user Problem (finding) Active (qualifier value) Onychomycosis Problem (finding) Active (qualifier value) Benign hypertensive renal disease Problem (finding) Active (qualifier value) Chronic kidney disease stage 3A Problem (finding) Active (qualifier value) Benign essential hypertension Problem (finding) Active (qualifier value) Iron deficiency anemia Problem (finding) Active (qualifier value) Pulmonary emphysema Problem (finding) Active (qualifier value) Osteopenia Problem (finding) Active (qualifier value) Lumbar radiculopathy Problem (finding) Active (qualifier value) Aneurysm of thoracic aorta Problem (finding) Active (qualifier value) Tobacco user Problem (finding) Active (qualifier value) Pulmonary emphysema Problem (finding) Active (qualifier value) Pulmonary emphysema Problem (finding) Active (qualifier value) Benign essential hypertension Problem (finding) Active (qualifier value) Chronic kidney disease stage 3 Problem (finding) Active (qualifier value) Chronic kidney disease stage 3A Problem (finding) Active (qualifier value) Iron deficiency anemia Problem (finding) Active (qualifier value) Pulmonary emphysema Problem (finding) Active (qualifier value) Bilateral osteoarthritis of knees Problem (finding) Active (qualifier value) Microcytic anemia Problem (finding) Active (qualifier value) Mass of right lower lobe of lung Problem (finding) Active (qualifier value) Pulmonary emphysema Problem (finding) Active (qualifier value) Aneurysm of thoracic aorta Problem (finding) Active (qualifier value) Benign hypertensive renal disease Problem (finding) Active (qualifier value) Benign essential hypertension Problem (finding) Active (qualifier value) Scar emphysema Problem (finding) Active (qualifier value) Chronic kidney disease stage 3A Problem (finding) Active (qualifier value) Osteoarthritis of multiple joints Problem (finding) Active (qualifier value) Increased frequency of urination Problem (finding) Active (qualifier value) Chronic kidney disease stage 3A Problem (finding) Active (qualifier value) O/E - allergic rash Problem (finding) Active (qualifier value) Chronic kidney disease stage 3A Problem (finding) Active (qualifier value) Right lower quadrant pain Problem (finding) Active (qualifier value) Pulmonary emphysema Problem (finding) Active (qualifier value) Osteoarthritis of multiple joints Problem (finding) Active (qualifier value) Chronic kidney disease stage 3A Problem (finding) Active (qualifier value) Non-thrombocytopenic purpura Problem (finding) Active (qualifier value) Benign hypertensive renal disease Problem (finding) Active (qualifier value) Ankle joint effusion Problem (finding) Active (qualifier value) Peripheral vascular disease Problem (finding) Active (qualifier value) Chronic kidney disease stage 3A Problem (finding) Active (qualifier value) Benign hypertensive renal disease Problem (finding) Active (qualifier value) Generalized abdominal pain Problem (finding) Active (qualifier value) Microcytic anemia Problem (finding) Active (qualifier value) Benign hypertensive renal disease Problem (finding) Active (qualifier value) Leukocytosis Problem (finding) Active (qualifier value) Pneumonia Problem (finding) Active (qualifier value) Lung mass Problem (finding) Active (qualifier value) Pulmonary emphysema Problem (finding) Active (qualifier value) Chronic kidney disease stage 3A Problem (finding) Active (qualifier value) Chronic kidney disease stage 3A Problem (finding) Active (qualifier value) Chronic kidney disease stage 3A Problem (finding) Active (qualifier value) Chronic kidney disease due to hypertension Problem (finding) Active (qualifier value) Pulmonary emphysema Problem (finding) Active (qualifier value) Benign hypertension Problem (finding) Active (qualifier value) Chronic kidney disease stage 3A Problem (finding) Active (qualifier value) Bilateral osteoarthritis of knees Problem (finding) Active (qualifier value) Sputum: contains blood Problem (finding) Active (qualifier value) Chronic kidney disease stage 3A Problem (finding) Active (qualifier value) Advance Directives Directive Yes / No Effective Date File Name No Information Encounters Encounter Description Practice Location Reason(s) For Visit Diagnoses Date Provider Encounter Disposition [facility] [id number] [place] [address], [id number] , tel: [phone] [facility] No Information Mar-0 8 5 Felicia Leung. [address], [address], . [phone] [facility] [address], [place], [address] , tel: [phone] [facility] No Information Mar-0 4- 5 Cimartak Xochitl. [address], [address], . tel:[phone] [employer], [address], [place], [place], [address] , [place] tel: [phone] [facility] Chronic Conditions (chief complaint) Orbital floor (blow-out) closed fractureFreque nt fallsOther emphysemaGener alized osteoarthritis 5 Cizek Xochitl. [address], [place], [place], [address], [place]. tel:[phone] [employer], [address], [place], [place], [address] , [place] tel: [phone] [facility] acute visit (chief complaint) Status post fallOrbital floor (blow-out) closed fractureLacera tion of left periocular area without foreign body, subsequent encounterPoor balanceFrequen t falls 5 Chadwick Turner. [address], [place], [place], [address], [place]. tel:[phone] [employer], [address], [place], [place], [address] , [place] tel:[phone] [facility] No Information 5 Cizek Xochitl. [address], [place], [place], [address], [place]. tel:[phone] [employer], [address], [place], [place], [address] , [place] tel: [phone] [facility] Chronic Conditions (chief complaint) Infectious colitisChronic hypoxic respiratory failureOther emphysemaImpac archie cerumen, right ear 0 5 Cizek Xochitl. [address], [place], [place], [address], [place]. tel:[phone] [employer], [address], [place], [place], [address] , [place] tel: [phone] [facility] No Information 5 Cizek Xochitl. [address], [place], [place], [address], [place]. tel:[phone] [facility] [employer], [address], [place], [place], [address] , [place] tel:[phone] [facility] No Information 0 5 Cizek Xochitl. [address], [place], [place], [address], [place]. tel: [phone] [employer], [address], [place], [place], [address] , tel: [phone] [facility] Chronic Conditions (chief complaint) Hypertensive chronic kidney disease with stage 1 through stage 4 chronic kidney disease, or unspecified chronic kidney diseaseRight lower lobe lung massOther emphysemaPneum onia of right upper lobe due to infectious organismStage 3a chronic kidney diseaseGeneral ized osteoarthritis 5 Cizek Xochitl. [address], [place], [place], [address], [place]. tel: [phone] [facility] [employer], [address], [place], [place], [address] , tel: [phone] [facility] Acute diarrhea 5 Cizek Xochitl. [address], [place], [place], [address], [place]. tel: [phone] [facility] [employer], [address], [place], [place], [address] , [place] tel: [phone] [facility] Other emphysemaHyper tensive chronic kidney disease with stage 1 through stage 4 chronic kidney disease, or unspecified chronic kidney diseaseStage 3a chronic kidney diseaseRight lower lobe lung massPneumonia of right upper lobe due to infectious organismLeukoc ytosis, unspecified 5 Cizek Xochitl. [address], [place], [place], [address], [place]. tel: [phone] [facility] [employer], [address], [place], [place], [address] , [place] tel: [phone] [facility] No Information 0 5 Cizek Xochitl. [address], [place], [place], [address], [place]. tel: [phone] [facility] [employer], [address], [place], [place], [address] , tel: [phone] [facility] No Information 5 Felicia Leung. [address], [place], [place], [address], . [phone] [facility] [employer], [address], [place], [place], [address] , tel: [phone] [facility] acute visit (chief complaint) Other fatigueCOVID-1 9Symptomatic hypotensionBle eding hemorrhoids 5 Chadwick Turner. [address], [place], [place], [address], . [phone] [facility] [employer], [address], [place], [place], [address] , tel: [phone] [facility] Chronic Conditions (chief complaint) Hypertensive chronic kidney disease with stage 1 through stage 4 chronic kidney disease, or unspecified chronic kidney diseaseStage 3a chronic kidney diseaseBilater al primary osteoarthritis of kneeOther emphysemaAther osclerosis of aortaIron deficiency anemia, unspecified iron deficiency anemia typeThoracic aortic aneurysm, without rupture, unspecifiedGen eralized osteoarthritis Medicare annual wellness visit, subsequentUrin gregoria frequency 5 Felicia Leung. [address], [place], [place], [address], [place]. [phone] [facility] [employer], [address], [place], [place], [address] , [place] tel: [phone] [facility] Encounter for screening for malignant neoplasm of colon 5 Felicia Leung. [address], [place], [place], [address], [place]. [phone] [facility] [employer], [address], [place], [place], [address] , [place] tel: [phone] [facility] acute visit (chief complaint)C hronic Conditions (chief complaint) Bleeding hemorrhoidsAcu te UTI (urinary tract infection)Impa cted cerumen of right earEncounter for screening for malignant neoplasm of colonHypertens talisha chronic kidney disease with stage 1 through stage 4 chronic kidney disease, or unspecified chronic kidney diseaseStage 3a chronic kidney diseaseEncount er for screening for malignant neoplasm of colon 5 Chadwick Turner. [address], [place], [place], [address], . tel:[phone] [facility] [employer], [address], [place], [place], [address] , tel: [phone] [facility] acute visit (chief complaint)C hronic Conditions (chief complaint) LLQ abdominal painChange in stoolRectal fissureCoughin g up bloodHypertens talisha chronic kidney disease with stage 1 through stage 4 chronic kidney disease, or unspecified chronic kidney diseaseStage 3a chronic kidney diseaseRight lower lobe lung massBilateral primary osteoarthritis of knee 5 Chadwick Turner. [address], [place], [place], [address], . tel:[phone] [facility] [employer], [address], [place], [place], [address] , tel: [phone] [facility] No Information 5 [employer]. [address] [facility], [address], [place], [place], [address], . [phone] [facility] [employer], [address], [place], [place], [address] , tel: [phone] [facility] Other emphysema 5 Cizek Xochitl. [address], [place], [place], [address], [place]. [phone] [facility] [employer], [address], [place], [place], [address] , [place] tel: [phone] [facility] No Information 5 Cizek Xochitl. [address], [place], [place], [address], [place]. tel:[phone] [facility] [employer], [address], [place], [place], [address] , tel: [phone] [facility] Chronic Conditions (chief complaint) Other emphysemaHyper tensive chronic kidney disease with stage 1 through stage 4 chronic kidney disease, or unspecified chronic kidney diseaseStage 3a chronic kidney diseaseIron deficiency anemia, unspecified iron deficiency anemia typeAcute pneumoniaRight lower lobe lung massAtheroscle rosis of aortaThoracic aortic aneurysm, without rupture, unspecifiedBil ateral primary osteoarthritis of knee 5 Cizek Xochitl. [address], [place], [place], [address], [place]. tel:[phone] [facility] [employer], [address], [place], [place], [address] , [place] tel: [phone] [facility] acute visit (chief complaint)C hronic Conditions (chief complaint) Acute pneumoniaEssen tial (primary) hypertensionOt her emphysema 5 Chadwick Turner. [address], [place], [place], [address], [place]. tel:[phone] [facility] [employer], [address], [place], [place], [address] , [place] tel: [phone] [facility] Chronic Conditions (chief complaint) Stage 3a chronic kidney diseaseHyperte nsive chronic kidney disease with stage 1 through stage 4 chronic kidney disease, or unspecified chronic kidney diseaseAtheros clerosis of aortaOther emphysemaIron deficiency anemia, unspecified iron deficiency anemia typeActinic keratosisImpac archie cerumen of both earsVaginal drynessScreeni ng mammogram for breast cancer 4 [employer]. [address] [facility], [address], [place], [place], [address], [place]. tel:[phone] [employer], [address], [place], [place], [address] , [place] tel: [phone] [facility] No Information 4 Cizek Xochitl. [address], [place], [place], [address], [place]. tel:[phone] [facility] [employer], [address], [place], [place], [address] , [place] tel: [phone] [facility] No Information 4 Cizek Xochitl. [address], [place], [place], [address], [place]. tel:[phone] [facility] [employer], [address] [place], [place], [address] , tel: [phone] [facility] Chronic Conditions (chief complaint) Hypertensive chronic kidney disease with stage 1 through stage 4 chronic kidney disease, or unspecified chronic kidney diseaseStage 3a chronic kidney diseaseFollicu litisNasal sore 4 Kodak Cannon. [address] [facility], [address], [place], [address], . tel: [phone] [employer], [address], [place], [place], [address] , tel: [phone] [facility] Hypertensive chronic kidney disease with stage 1 through stage 4 chronic kidney disease, or unspecified chronic kidney diseaseStage 3a chronic kidney disease 4 Kodak Cannon. [address] [facility], [address], [place], [address], . tel:[phone] [employer], [address], [place], [place], [address] , tel: [phone] [facility] Chronic Conditions (chief complaint) Hypertensive chronic kidney disease with stage 1 through stage 4 chronic kidney disease, or unspecified chronic kidney diseaseStage 3a chronic kidney diseaseAcute cystitis without hematuriaFatig ue, unspecified typeSymptoms of upper respiratory infection (URI)Intermitt ent constipation 4 Kodak Cannon. [address] [facility], [address] [place] [address], [id number], . tel:[phone] [employer], [address] [place] [address], [address] , tel: [phone] [facility] Medicare preventive (chief complaint)M edicare preventive (chief complaint)C hronic Conditions (chief complaint) Hypertensive chronic kidney disease with stage 1 through stage 4 chronic kidney disease, or unspecified chronic kidney diseaseStage 3a chronic kidney diseaseMedicar e annual wellness visit, subsequentAthe rosclerosis of aortaThoracic aortic aneurysm, without rupture, unspecifiedOst eopenia of multiple sitesAcute cystitis without hematuria 4 Felicia Leung. [address], [place], [place], [address], [place]. tel:[phone] [employer], [address], [place], [place], [address] , tel: [phone] [facility] Chronic Conditions (chief complaint)c hronic conditions (chief complaint) Hypotension, unspecified hypotension typeHypertensi ve chronic kidney disease with stage 1 through stage 4 chronic kidney disease, or unspecified chronic kidney diseaseStage 3a chronic kidney diseaseUrinary frequencyAbnor mal urinalysis 4 Cizek Xochitl. [address], [place], [place], [address], [place]. tel:[phone] [employer], [address], [place], [place], [address] , tel: [phone] [facility] Chronic Conditions (chief complaint) Hypertensive chronic kidney disease with stage 1 through stage 4 chronic kidney disease, or unspecified chronic kidney diseaseStage 3a chronic kidney diseaseOther emphysemaIron deficiency anemia, unspecified iron deficiency anemia typeHypotensio n, unspecified hypotension type 4 Cizek Xochitl. [address], [place], [place], [address], [place]. tel:[phone] [employer], [address], [place], [place], [address] , tel: [phone] [facility] Urinary frequency 4 Cizek Xochitl. [address], [place], [place], [address], . tel:[phone] [employer], [address], [place], [place], [address] , tel: [phone] [facility] Chronic Conditions (chief complaint) Hypertensive chronic kidney disease with stage 1 through stage 4 chronic kidney disease, or unspecified chronic kidney diseaseStage 3a chronic kidney diseaseOther emphysemaIron deficiency anemia, unspecified iron deficiency anemia type 4 Cizek Xochitl. [address], [place], [place], [address], . tel:[phone] [employer], [address], [place], [place], [address] , tel: [phone] [facility] Chronic Conditions (chief complaint) Hypertensive chronic kidney disease with stage 1 through stage 4 chronic kidney disease, or unspecified chronic kidney diseaseStage 3a chronic kidney diseaseAcute cystitis without hematuriaHypon atremiaHypokal emiaLeukocytos is, unspecified type 4 Cizek Xochitl. [address], [place], [place], [address], . tel: [phone] [employer], [address], [place], [place], [address] , tel: [phone] [facility] No Information 4 Cizek Xochitl. [address], [place], [place], [address], . tel:[phone] [employer], [address], [place], [place], [address] , tel: [phone] [facility] Chronic Conditions (chief complaint) Hypertensive chronic kidney disease with stage 1 through stage 4 chronic kidney disease, or unspecified chronic kidney diseaseStage 3a chronic kidney diseaseBilater al primary osteoarthritis of kneeIron deficiency anemia, unspecified iron deficiency anemia typeOther emphysemaEssen tial (primary) hypertension 3 Cizek Xochitl. [address], [place], [place], [address], . tel:[phone] [employer], [address], [place], [place], [address] , tel: [phone] [facility] Chronic Conditions (chief complaint) Other emphysemaHyper tensive chronic kidney disease with stage 1 through stage 4 chronic kidney disease, or unspecified chronic kidney diseaseStage 3a chronic kidney diseaseBilater al primary osteoarthritis of kneeHypoxia 3 Cizek Xochitl. [address], [place], [place], [address], . tel:[phone] [employer], [address], [place], [place], [address] , tel: [phone] [facility] Chronic Conditions (chief complaint) Other emphysemaHypox iaPain in left knee 3 Cizek Xochitl. [address], [place], [place], [address], . tel:[phone] [employer], [address], [place], [place], [address] , tel: [phone] [facility] acute visit (chief complaint) Hypertensive chronic kidney disease with stage 1 through stage 4 chronic kidney disease, or unspecified chronic kidney diseaseStage 3a chronic kidney diseasePain in left kneePain in right kneeGastroesop hageal reflux disease with esophagitis without hemorrhage 3 Nohemi Mckeon. [address], [place], [place], [address], [place]. tel:[phone] [employer], [address], [place], [place], [address] , [place] tel: [phone] [facility] No Information 3 Maikel Stein. [address] [place] [address], [facility], . tel:[phone] [employer], [address], [place], [place], [address] , tel: [phone] [facility] No Information 3 K[address] Stokes[address] [facility], [address], . tel:[phone] [employer], [address], [place], [place], [address] , tel: [phone] [facility] Iron deficiency anemia, unspecified iron deficiency anemia type 3 Felicia Leung. [address], [place], [place], [address], [place]. tel:[phone] [employer], [address], [place], [place], [address] , [place] tel: [phone] [facility] Medicare preventive (chief complaint)C hronic Conditions (chief complaint) Hypertensive chronic kidney disease with stage 1 through stage 4 chronic kidney disease, or unspecified chronic kidney diseaseStage 3a chronic kidney diseaseOther emphysemaAther osclerosis of aortaSenile purpuraMedicar e annual wellness visit, subsequentOste openia of multiple sitesAnemia, unspecified typeRight wrist fracture, sequelaImpacte d cerumen, bilateralMild cognitive impairment 3 Felicia Leung. [address], [place], [place], [address], . tel:[phone] [employer], [address], [place], [place], [address] , tel: [phone] [facility] acute visit (chief complaint) Diarrhea, unspecified typeHypertensi ve chronic kidney disease with stage 1 through stage 4 chronic kidney disease, or unspecified chronic kidney diseaseStage 3a chronic kidney disease 3 Nohemi Mckeon. [address], [place], [place], [address], [place]. tel:[phone] [employer], [address], [place], [place], [address] , tel: [phone] [facility] No Information 3 Felicia Thakkar [address] [place], [place], [address], . tel:[phone] [employer], [address], [place], [place], [address] , tel: [phone] [facility] Chronic Conditions (chief complaint) Hypertensive chronic kidney disease with stage 1 through stage 4 chronic kidney disease, or unspecified chronic kidney diseaseStage 3a chronic kidney diseasePeriphe ral vascular diseaseAtheros clerosis of aortaOther emphysema 3 Felicia Leung. [address] [place], [address], [place]. tel:[phone] [employer], [address], [place], [place], [address] , tel: [phone] [facility] Chronic Conditions (chief complaint) Hypertensive chronic kidney disease with stage 1 through stage 4 chronic kidney disease, or unspecified chronic kidney diseaseStage 3a chronic kidney diseasePain in right kneePain in left kneeOther chronic painLumbar radiculopathy 2 Felicia Leung. [address], [place], [place], [address], . tel:[phone] [facility], [address], [place], [place], [address] , tel: [phone] [facility] No Information 2 Cizek Xochitl. [address], [place], [place], [address], . tel:[phone] [facility], [address], [place], [place], [address] , tel: [phone] [facility] Chronic Conditions (chief complaint) Hypertensive chronic kidney disease with stage 1 through stage 4 chronic kidney disease, or unspecified chronic kidney diseaseStage 3a chronic kidney diseaseLumbar radiculopathy 2 Cizek Xochitl. [address], [place], [place], [address], . [phone] [employer] [facility], [address], [place], [place], [address] , tel: [phone] [facility] No Information 2 Brenna Stokes. [address], [place], [place], [address], [place]. [phone] [facility], [address], [place], [place], [address] , tel: [phone] [facility] No Information 2 Jaleel Jones. [address], [place], [place], [address], . [phone] [facility], [address], [place], [place], [address] , tel: [phone] [facility] Hypertensive chronic kidney disease with stage 1 through stage 4 chronic kidney disease, or unspecified chronic kidney diseaseStage 3a chronic kidney diseaseAtheros clerosis of aortaPeriphera l vascular disease 2 Cizek Xochitl. [address], [place], [place], [address], . [phone] [facility], [address], [place], [place], [address] , tel: [phone] [facility] acute visit (chief complaint) Superficial phlebitisBenig n essential hypertension Apr-2 2 Adinaberg Linda. [address], [place], [place], [address], [place]. tel:[phone] [employer], [address], [place], [place], [address] , tel: [phone] [facility] DehydrationHyp ertensive chronic kidney disease with stage 1 through stage 4 chronic kidney disease, or unspecified chronic kidney disease Jul- 2 Cizek Xochitl. [address], [place], [place], [address], [place]. tel:[phone] [employer], [address], [place], [place], [address] , tel: [phone] [facility] Chronic Conditions (chief complaint) Acute UTIDehydration Benign hypertensive renal diseaseStage 3a chronic kidney disease Apr-0 2 Cizek Xochitl. [address], [place], [place], [address], [place]. tel:[phone], [address], [place], [place], [address] , [place] tel: [phone] [facility] Chronic Conditions (chief complaint) Benign hypertensive renal diseaseOther emphysemaStage 3a chronic kidney diseaseDDD (degenerative disc disease), cervicalBilate ral primary osteoarthritis of knee Jun-0 2 Cizek Xochitl. [address], [place], [place], [address], [place]. tel:[phone] [employer], [address], [place], [place], [address] , [place] tel: [phone] [facility] Chronic Conditions (chief complaint) Benign hypertensive renal diseaseStage 3a chronic kidney diseaseOther emphysemaDDD (degenerative disc disease), cervical Dec-0 1 Cizek Xochitl. [address], [place], [place], [address], [place]. tel:[phone], [address], [place], [place], [address] , tel: [phone] [facility] Chronic Conditions (chief complaint) Benign hypertensive renal diseaseStage 3a chronic kidney diseaseThoraci c aortic aneurysm without rupture Sep-0 - 1 Felicia Leung. [address], [place], [place], [address], [place]. tel:[phone] [employer], [address], [place], [place], [address] , tel: [phone] [facility] Chronic Conditions (chief complaint) Benign hypertensive renal diseaseStage 3a chronic kidney diseaseOther emphysemaTear of right biceps muscle, subsequent encounter 0 - 1 Felicia Leung. [address], [place], [place], [address], [place]. tel:[phone] [employer], [address], [place], [place], [address] , [place] tel: [phone] [facility] Chronic Conditions (chief complaint) Benign hypertensive renal diseaseStage 3a chronic kidney diseaseThoraci c aortic aneurysm without ruptureAtheros clerosis of aortaSenile purpuraTear of right biceps muscle, subsequent encounter Jul-2 1 Felicia Leung. [address], [place], [place], [address], [place]. tel:[phone] [employer], [address], [place], [place], [address] , [place] tel: [phone] [facility] Strain of muscle, fascia and tendon of other parts of biceps, right arm, initial encounter Jul-2 1 Felicia Leung. [address], [place], [place], [address], [place]. tel:[phone] [employer], [address], [place], [place], [address] , [place] tel: [phone] [facility] acute visit (chief complaint) Tear of right biceps muscle, initial encounterBenig n hypertensive renal diseaseStage 3a chronic kidney disease Jul-04 09- 1 Nohemi Mckeon. [address], [place], [place], [address], [place]. tel:[phone] [employer], [address], [place], [place], [address] , [place] tel: [phone] [facility] Chronic Conditions (chief complaint) Hypertensive chronic kidney disease with stage 1 through stage 4 chronic kidney disease, or unspecified chronic kidney diseaseChronic kidney disease, stage 3 unspecifiedOth er emphysema 0 Cizek Xochitl. [address], [place], [place], [address], [place]. tel:[phone] [facility], [address] [facility], [place], [place], [address] , tel: [phone] [facility] Chronic Conditions (chief complaint) Other emphysemaThora cic aortic aneurysm without ruptureHyperte nsive chronic kidney disease with stage 1 through stage 4 chronic kidney disease, or unspecified chronic kidney diseaseChronic kidney disease, stage 3 (moderate)Padmini min D deficiencyFoot pain, right Sep-0 0 Cizek Xochitl. [address], [place], [place], [address], [place]. tel:[phone] [facility], [address] [facility], [place], [place], [address] , tel: [phone] [facility] No Information 0 Brenna Stokes. [address], [place], [place], [address], [place]. [phone] [facility], [address] [facility], [place], [place], [address] , tel: [phone] [facility] Breast nodule 0 Cizek Xochitl. [address], [place], [place], [address], [place]. [phone] [facility], [address] [facility], [place], [place], [address] , tel: [phone] [facility] No Information 0 Hank Ricci. [address], [place], [place], [address], [place]. tel:[phone] [facility], [address] [facility], [place], [place], [address] , tel: [phone] [facility] Chronic Conditions (chief complaint) Other emphysemaAller gic dermatitis Jul- 0 Cizek Xochitl. [address], [place], [place], [address], . tel:[phone] [employer], [address], [place], [place], [address] , tel: [phone] [facility] Chronic Conditions (chief complaint) Essential hypertensionOt her emphysemaThora cic aortic aneurysm without ruptureSenile purpuraAtheros clerosis of aorta 0 Cizek Xochitl. [address], [place], [place], [address], [place]. tel:[phone] [employer], [address], [place], [place], [address] , [place] tel: [phone] [facility] No Information 0 Cidawit Lindsay. [address] [place], [place], [address], . [phone] [employer], [address] [facility], [place], [place], [address] , tel: [phone] [facility] Periumbilical abdominal pain 0 Dimitroff Kike. [address] [place] [address], [address], [place]. tel:[phone] [employer], [address] [facility], [place], [place], [address] , tel: [phone] [facility] No Information 0 Dimitroff Kike. [address] [place] [address], [address], [address], . tel:[phone] [employer], [address] [facility], [place], [place], [address] , [place] tel: [phone] [facility] No Information 0 Dimitroff Kike. [address] [place] [address], [address], [address], [place]. tel:[phone] [employer], [address] [facility], [place], [place], [address] , tel: [phone] [facility] Chronic Conditions (chief complaint) Essential hypertensionOt her emphysemaRight lower quadrant abdominal painAnemia, unspecified type 9 Cizek Xochitl. [address], [place], [place], [address], [place]. tel:[phone] [employer], [address], [place], [place], [address] , [place] tel: [phone] [facility] Chronic Conditions (chief complaint) Essential hypertensionOt her emphysemaAnkle edema, bilateralOnych omycosis 9 Cizek Xochitl. [address], [place], [place], [address], [place]. tel:[phone] [employer], [address], [place], [place], [address] , [place] tel: [phone] [facility] acute visit (chief complaint) Left foot painTobacco user 9 Kodak Cannon. [address] [facility], [address], [place], [place], [address], [place]. tel:[phone] [employer], [address], [place], [place], [address] , [place] tel: [phone] [facility] No Information 9 Cizek Xochitl. [address], [place], [place], [address], [place]. tel:[phone] [employer], [address], [place], [place], [address] , [place] tel: [phone] [facility] Chronic Conditions (chief complaint) Essential hypertensionOt her emphysemaSenil e purpuraLung nodulesThoraci c aortic aneurysm without ruptureTobacco use 9 Cizek Xochitl. [address], [place], [place], [address], [place]. tel:[phone] [employer], [address], [place], [place], [address] , [place] tel: [phone] [facility] Chronic Conditions (chief complaint) Essential hypertensionOt her emphysemaTobac co consumptionPne umonia of both lower lobes due to infectious organism 9 Cizek Xochitl. [address], [place], [place], [address], [place]. tel: [phone] [employer], [address], [place], [place], [address] , [place] tel: [phone] [facility] Chronic Conditions (chief complaint) Pneumonia of both lower lobes due to infectious organismOther emphysemaTobac co consumptionEss ential hypertensionSe nile purpura 9 Cizek Xochitl. [address], [place], [place], [address], [place]. tel:[phone] [employer], [address], [place], [place], [address] , [place] tel: [phone] [facility] Abnormal chest CT 8 Hank Ricci. [address], [place], [place], [address], [place]. tel: [phone] [employer], [address], [place], [place], [address] , [place] tel: [phone] [facility] Annual physical examEssential hypertensionOs teopeniaAnxiet y disorder, unspecifiedVit weber D deficiencyToba senior accounting manager consumptionGen eralized abdominal painBilateral impacted cerumen 8 Cizek Xochitl. [address], [place], [place], [address], [place]. tel:[phone] [employer], [address], [place], [place], [address] , [place] tel: [phone] [facility] Encounter for screening for osteoporosis 8 Cizek Xochitl. [address], [place], [place], [address], [place]. tel:[phone] [employer], [address], [place], [place], [address] , [place] tel: [phone] [facility] Essential hypertensionSe nile purpuraAnxiety disorder, unspecified 8 Cizek Xochitl. [address], [place], [place], [address], [place]. tel: [phone] [employer], [address], [place], [place], [address] , [place] tel: [phone] [facility] OsteopeniaEsse ntial hypertensionSe nile purpuraEncount er for gynecological examination (general) (routine) without abnormal findingsPolyos teoarthritis, unspecifiedAnx iety disorder, unspecifiedFal l, initial encounter 7 Cizek Xochitl. [address], [place], [place], [address], [place]. tel: [phone] [employer], [address], [place], [place], [address] , [place] tel: [phone] [facility] Essential hypertensionAc [place] pain of right shoulder 7 Cizek Xochitl. [address], [place], [place], [address], [place]. tel: [phone] [employer], [address], [place], [place], [address] , [place] tel: [phone] [facility] Essential hypertensionSe nile purpura 6 Cizek Xochitl. [address], [place], [place], [address], [place]. tel: [phone] [employer], [address], [place], [place], [address] , [place] tel: [phone] [facility] No Information 3 6 Cizek Xochitl. [address], [place], [place], [address], [place]. tel: [phone] [employer], [address], [place], [place], [address] , [place] tel: [phone] [facility] Essential hypertension 5201 6 Cizek Xochitl. [address], [place], [place], [address], [place]. tel: [phone] [employer], [address], [place], [place], [address] , [place] tel: [phone] [facility] Elevated blood pressure (not hypertension) 6 Cizek Xochitl. [address], [place], [place], [address], [place]. tel: [phone] [employer], [address], [place], [place], [address] , tel: [phone] [facility] Essential hypertension 9 6 Cizek Xochitl. [address], [place], [place], [address], [place]. tel: [phone] [employer], [address], [place], [place], [address] , tel: [phone] [facility] Essential hypertensionAc [place] viral conjunctivitis of both eyes 0 4201 6 Cizek Xochitl. [address], [place], [place], [address], [place]. tel: [phone] [employer], [address], [place], [place], [address] , tel: [phone] [facility] Osteopenia 0 6 Cizek Xochitl. [address], [place], [place], [address], [place]. tel: [phone] [employer], [address], [place], [place], [address] , [place] tel: [phone] [facility] Right-sided low back pain without sciaticaOsteop eniaEssential hypertension 0 6 Detmer Bety. [address], [place], [place], [address], [place]. tel:[phone] [employer], [address], [place], [place], [address] , [place] tel: [phone] [facility] Routine gynecological examOsteoarthr osis, Unspecified, Unspecified SiteOsteopenia Elevated blood pressure (not hypertension)C erumen impactionAbdom inal painAnxiety state, unspecified 2 5 Cizek Xochitl. [address], [place], [place], [address], [place]. tel: [phone] [employer], [address], [place], [place], [address] , [place] tel: [phone] [facility] Elevated blood pressure (not hypertension)O steoarthrosis, generalized, involving unspecifiedTob acco useAnxiety state, unspecifiedOst eopeniaCerumen impactionRouti ne gynecological exam 3 Cizek Xochitl. [address], [place], [place], [address], [place]. tel:[phone] [employer], [address], [place], [place], [address] , tel: [phone] [facility] Urinary tract infection, site not specifiedAcute upper respiratory infections of unspecified siteTobacco use disorder 3 Detmer Bety. [address], [place], [place], [address], [place]. tel:[phone] [employer], [address], [place], [place], [address] , [place] tel: [phone] [facility] Osteoarthrosis , generalized, involving unspecified siteAnxiety state, unspecifiedTob acco use disorderUrinar y tract infection, site not specifiedEleva archie blood pressure reading without diagnosis of hypertension 2 Cizek Xochitl. [address], [place], [place], [address], [place]. tel:[phone] [employer], [address], [place], [place], [address] , [place] tel: [phone] [facility] Urinary tract infection 2 Detmer Bety. [address], [place], [place], [address], [place]. tel:[phone] [employer], [address], [place], [place], [address] , [place] tel: [phone] [facility] Frequency of urinationEleva archie blood pressure (not hypertension)T obacco use 2 Detmer Bety. [address], [place], [place], [address], [place]. tel:[phone] [employer], [address], [place], [place], [address] , tel: [phone] [facility] Shoulder pain, left 2 Detmer Bety. [address], [place], [place], [address], . tel:[phone] [facility], [address], [place], [place], [address] , [place] tel: [phone] [facility] Superficial injury of cornea 1 Siri Anthony. [address], [place], [place], [address]. tel: [phone] [facility], [address], [place], [place], [address] , [place] tel: [phone] [facility] IM Routine gynecological examinationAnx iety state, unspecifiedOst eoarthrosis, Unspecified, Unspecified SiteImpacted cerumen 1 [address]ize[address]l. [address], [place], [place], [address], [place]. tel: [phone] [facility], [address], [place], [place], [address] , tel: [phone] [facility] IM PAIN IN LIMBREDNESS/DI SCHARGE OF EYE 1 [address]ize[address]. [address], [place], [place], [address], [place]. tel: [phone] [facility], [address], [place], [place], [address] , [place] tel: [phone] [facility] IM TOBACCO USE DISORDER 0 [address]ize[address] Xoch[address]. [address], [place], [place], [address], [place]. tel: [phone] [facility], [address], [place], [place], [address] , [place] tel: [phone] [facility] IM ANXIETY STATE NOSROUTINE MEDICAL EXAMSCREEN MAL NEOP-RECTUM 5-200 9 [address]ize[address] Xoch[address], [place], [place], [address], [place]. tel: [phone] [facility], [address], [place], [place], [address] , [place] tel: [phone] [facility] IM PURE HYPERCHOLESTER OLEM 8-200 6 [address]ize[address] Xoch[address]. [address], [place], [place], [address], . tel: [phone] [facility], [address], [place], [place], [address] , tel: [phone] [facility] GENERAL OSTEOARTHROSIS LONG-TERM USE MEDS NEC Sep-0 1-200 5 [address]ize[address] Xoch[address]l. [address], [place], [place], [address], [place]. tel: [phone] [facility], [address], [place], [place], [address] , tel: [phone] [facility] [place] OTHER SPECF VACNATION Dec-0 3-200 2 [address]ize[address] X[address], [place], [place], [address], . tel: [phone] [facility], [address], [place], [place], [address] , tel: [phone] [facility] HORMONE REPLACE POSTMENO Sep-2 6-200 0 Cizek Xoch[address]l. [address], [place], [place], [address], [place]. tel: [phone] [facility], [address], [place], [place], [address] , tel: [phone] [facility] SCREEN-BLOOD DIS NOS August-0 9-200 0 Cizek Xoch[address]l. [address], [place], [place], [address], . tel: [phone] [facility], [address], [place], [place], [address] , tel: [phone] [facility] IM SCREEN FOR HYPERTENSION Javi-0 6-200 0 Cizek Xoch[address]l. [address], [place], [place], [address], . tel: [phone] Family History Family Member Type Diagnosis Age At Onset No Information Immunizations Vaccine Date Status Comments Fluzone High-Dose Trivalent, preservative free administered Source: New Immuniza tion Record Pfizer Comiraristides COVID vaccine, promise-sucrose, 30mcg/0.3mL dose, 12 years [...] Provid er Payers Payer name Insurance type Identifiers Authorization(s) Com gerideandre KD MDCR PPO PLANS MB iber ID: [id number] Name: Coverage Status Eligibility Check on: [id number] nship to Subscriber: selfPayer Address: [address], [place], [place], [address]Prlih Phone: [phone] [employer] MDCR PPO PLANS MB Member ID:Subscriber ID:Group Name: Coverage Status Eligibility Check on: [id number] nship to Subscriber: selfPayer Address: [address], [place], [place], [address]Fthfy Phone: [phone] MEDICARE ADALID Member ID:Subscriber ID:Group Name: Coverage Status Eligibility Check on: [id number] nship to Subscriber: selfPayer Address: [address] [address], [place], [place], [address]Kxfja Phone: [phone] [facility] MB Member ID:Subscriber ID:Group Name: Coverage Status Eligibility Check on: [id number] nship to Subscriber: selfPayer Address: [address], [place], [place], [address]Diska Phone: [phone] MEDICARE MB Member ID:Subscriber ID:Group Name: Coverage Status Eligibility Check on: [id number] nship to Subscriber: selfPayer Address: [address] [address], [place], [place], [address]Tvjec Phone: [phone] Ogone I II III CI Member ID:Subscriber ID:Group Name: Coverage Status Eligibility Check on: [id number] nship to Subscriber: selfPayer Address: [address], [place], [place], [address]Lihpv Phone: MEDICARE MB Member ID:Subscriber ID:Group Name: Coverage Status Eligibility Check on: [id number] nship to Subscriber: selfPayer Address: [address] [address], [place], [place], [address]Lmymo Phone: [phone] Ogone I II III CI Member ID:Subscriber ID:Group Name: Coverage Status Eligibility Check on: [id number] nship to Subscriber: selfPayer Address: [address], [place], [place], [address]Wodcu Phone: Ogone I II III CI Member ID:Subscriber ID:Group Name: Coverage Status Eligibility Check on: [id number] nship to Subscriber: selfPayer Address: [address], [place], [place], [address]Qhzxb Phone: Ogone I II III CI Member ID:Subscriber ID:Group Name: Coverage Status Eligibility Check on: [id number] nship to Subscriber: selfPayer Address: [address], [place], [place], [address]Gcvmn Phone: Social History Type Description Quantity Date Captured Comments Alcohol Use Details Unknown Caffeine Use Details Unknown Tobacco Use Status No Information Smoking Status No Information Sex Female Sexual Orientation Straight or heterosexual Gender Identity Female Current Gender Female (finding) Chief Complaint And Reason For Visit No Information Plan Of Treatment Date Type Action Status Goal Dietary manageme nt education, guidance, and counseling completed Referral Ordered: Physical Therapy [facility] (related to Poor balance) ordered Referral Referred To: Physical Therapy [address] [place] [address], [address] [phone] Ordered: Referrals: Physical Therapy. Location: [facility]. Evaluation/diagnostic/treatment - Level 3 ordered Referral Ordered: Xray, Abdomen, 2 Views ordered Referral Referred To: Ashwin Hinson [address] [place], [phone] Ordered: Referrals: Pulmonology. Ashwin Hinson. Evaluation/diagnostic/treatment - Level 3 ordered Referral Referred To: [facility] [place] [address], [address] [phone] Ordered: CT scan of chest with contrast ordered Referral Referred To: [address] [place] [address], [id number] [phone] Ordered: Screening mammography of both breasts Appointment date/timeframe: 08/08/2024 ordered Referral Referred To: [address] [place] [address], [id number] [phone] Ordered: Colonoscopy, flexible; with biopsy, single or multiple Appointment date/timeframe: 11/05/2022 ordered Referral Referred To: [address] [place], [place], [phone] Ordered: Upper gastrointestinal endoscopy Appointment date/timeframe: 11/05/2022 ordered Referral Referred To: Robert Lagunas DO [address] [facility] [address] [place], [phone] Ordered: Referrals: Orthopedic Surgery. Robert Lagunas DO. Evaluation/diagnostic/treatment - Level 3 ordered Referral Referred To: [address] [place] [address], [id number] [phone] Ordered: VENECIA (ankle brachial index) ordered Referral Referred To: [address] [place] [address], [id number] [phone] Ordered: Complete Doppler ultrasound of arteries of both lower extremities ordered Referral Ordered: X-RAY EXAM OF KNEES Bilateral ordered Referral Ordered: Complete Doppler ultrasound of renal artery ordered Referral Ordered: Complete duplex scan of renal vessels ordered Referral Ordered: CT of right upper extremity without contrast Right Appointment date/timeframe: 10/09/2020 ordered Referral Referred To: [address] [place] [address], [id number] [phone] Ordered: MRI upper extremity oth than jt w/o contr matrl ordered Referral Ordered: X-RAY EXAM OF FOOT Right ordered Referral Referred To: [address] [place] [address], [id number] [phone] Ordered: US breast left limited Left breast ordered Referral Referred To: [address] [place] [address] [place], [id number] [phone] Ordered: Spot compression mammography of left breast Left breast ordered Referral Referred To: [address] [place], [place], [phone] Ordered: SCREENING MAMMOGRAM (CAD) Bilateral breast Appointment date/timeframe: 07/19/2019 ordered Referral Referred To: [address] [place] [address], [id number] [phone] Ordered: CT angiography chest w/contrast/noncontrast Appointment date/timeframe: 07/19/2019 ordered Referral Ordered: CT abdomen and pelvis w contrast ordered Referral Referred To: [address] [facility] [address] [place], [place], [phone] Ordered: COLONOSCOPY, Flexible, Proximal To Splenic, Diagnostic, Wor W/O Collection Of Sp Appointment date/timeframe: 06/01/2019 ordered Referral Referred To: [address], [id number] [phone] Ordered: EGD, FLEXIBLE, TRANSORAL, DIAGNOSTIC W/ COLLECTION OF SPECIMEN Appointment date/timeframe: 06/01/2019 ordered Referral Ordered: X-RAY EXAM OF FOOT Left ordered Referral Ordered: Chest Xray, 2 Views ordered Appointment Fara Valencia BOOKED Future Order: Lab Order C Diffic ile Toxin RT- PCR ([id number]), Ordered on: Ordered Future Order: Radiology Order Co mplete Doppler ultrasound of renal artery ([id number]), Sent on: Sent Future Order: Radiology Order Co mplete duplex scan of renal vessels ([id number]), Sent on: Sent Future Order: Radiology Order MR I upper extremity oth than jt w/o contr matrl ([id number]), Sent on: Sent History Of Present Illness Encounter Date Complaint History Of Prese nt Illness Chronic Conditions *See Chronic Conditions HPI acute visit Fara present s for an ER follow up. She went to [facility] ER on February 04 after a fall. Fara reports falling face first after her grandson's fifth grade playoff game on the wednesday, resulting in significant facial injuries and bleeding. She received immediate assistance from her granddaughter, daughter, a bystander, police, and ambulance personnel. She is unsure if she lost consciousness during the fall, but states she was talking the whole time. She experienced swelling and bruising around her left eye, which was swollen shut but is now starting to open. She went to the ER and had CT scan that showed a closed left orbital floor blowout fracture, which she is following up with ENT for later today. She had a laceration above her left eyebrow that was sutured with dissolving sutures. She has extensive bruising around her eyes but states it has improved substantially in the last few days.She describes severe pain at the fracture site and has mild pain in both shoulders, but has full range of motion. No other injuries from fall. Her daughter, who works in healthcare, has suggested physical therapy for balance as she has had several falls this year. Chronic Conditions *See Chronic Conditions HPI Chronic [...] fill the toilet. She has been using [id number]-gtt-[id number] creams for discomfort, finding some relief. She [...] an ER follow up. She went to [place] ER on 04/17/2024 for shortness of breath, [...] Chronic Conditions HPI Chronic Conditions Patient prese [facility] for an ER follow up. She went to [place] ER on 04/17/2024 for shortness of breath, [...] and above. Chronic Conditions *See Chronic Conditions [facility] Chronic Conditions *See Chronic Conditions [facility] Chronic Conditions *See Chronic Conditions [facility] Chronic Conditions *See Chronic Conditions [facility] Medicare preventive A Health Ris k Assessment [...] changes made. chronic conditions *See Chronic Conditions [facility] Chronic Conditions *See Chronic Conditions [facility] Chronic Conditions *See Chronic Conditions [facility] Chronic Conditions *See Chronic Conditions HPI Chronic Conditions *See Chronic Conditions [facility] Chronic Conditions *See Chronic Conditions HPI Chronic Conditions *See Chronic Conditions HPI Chronic Conditions *See Chronic Conditions HPI acute visit Chief complaint: knee pain. Saw [...] frothy urine. Chronic Conditions *See Chronic Conditions [facility] Chronic Conditions *See Chronic Conditions [facility] Chronic Conditions *See Chronic Conditions [facility] Chronic Conditions *See Chronic Conditions [facility] acute visit Chief complaint: ankle pain. Painful lump and redness around her right ankle. This began 3 days ago. Tender to touch. Very warm to touch. No injury. Taking Tylenol and applying ice. Increased swelling after standing all day at work.Has hypertension. Taking meds. No chest pain or headache. Chronic Conditions *See Chronic Conditions [facility] Chronic Conditions *See Chronic Conditions [facility] Chronic Conditions *See Chronic Conditions [facility] Chronic Conditions *See Chronic Conditions [facility] Chronic Conditions *See Chronic Conditions [facility] Chronic Conditions *See Chronic Conditions [facility] acute visit Chief complaint: right upper arm [...] frothy urine. Chronic Conditions *See Chronic Conditions [facility] Chronic Conditions *See Chronic Conditions [facility] Chronic Conditions *See Chronic Conditions [facility] Chronic Conditions *See Chronic Conditions [facility] Chronic Conditions *See Chronic Conditions [facility] Chronic Conditions *See Chronic Conditions HPI acute [...] *See Chronic Conditions HPI Functional Status Date Description Comments No Information Instructions Date Instruction Additional Infor mation Continue with the present inhale rs. Related to Other emphysema Continue with the physical thera py. Related to Frequent falls Remove the sutures. Still having some left sided head pain. Repeat the BDE. Related to Orbital floor (blow-out) closed fracture Ongoing pain in the shoulders and neck. Increase the gabapentin to 2 capsules po three times daily. Related to Generalized osteoarthritis Laceration appears t o be healing well.Let us know if you develop any signs of infection such as redness, swelling, drainage. Continue with antibiotics as prescribed. Related to Laceration of left periocular area without foreign body, subsequent encounter Follow up with ENT r egarding fracture.Continue with norco for pain relief. Related to Orbital floor (blow-out) closed fracture PT ordered to help w ith balance and gait. Continue using cane/walker to help with ambulationCall us with any questions. Related to Status post fall PT ordered Related to Frequ ent falls PT ordered Related to Poor balance Right ear irrigation and tolerated the procedure well. Related to Impacted cerumen, right ear Check ambulatory pul se ox. Check the ambulatory pulse ox. Follow up with pulmonary and agree with pulmonary rehab. Related to Chronic hypoxic respiratory failure Recent admission and discharged on 01/27. Complete the course of antibiotics. Abdominal exam is normal today. Repeat the CBC and keep follow up in 4 months. Good hydration. Call if symptoms recur. Related to Infectious colitis Continue with the present meds. Related to Other emphysema Daily stretching and walking and refill the [...] deficiency anemia type [facility].Use this to help with shortness of [...] if not improving. Related to Folliculitis Recommend [place] nasal gel to help with this. Related [...] pressure is el evated in office, to [facility]. Related to Hypertensive chronic kidney disease with [...] chronic kidney disease Doing well. Normal m brewster testing. Schedule mammogram. Follow up in 3 [...] in left knee As noted. 87% with tu alvarado today. Check the CXR today. Clear and [...] Stage 3a chronic kidney disease Stable. No orthosta tic hypotension. Recheck BMP to assess hydration status. [...] if you stay at home, use hand waste management recycling technician and wash your hands frequently. Especially when [...] if you stay at home, use hand waste management recycling technician and wash your hands frequently. Especially when [...] if you stay at home, use hand waste management recycling technician and wash your hands frequently. Especially when [...] Related to Essential hypertension As noted above. Sto p the Amlodipine. Related to Ankle edema, bilateral Doing well [...]
--- OUTSIDE RECORDS SUMMARY | 2025-03-13 01:00 | XMS_ITS | Continuity of Care Document ---
Author Organization [facility] [employer], [facility] Address [address] [place] [address] Assessment No assessment recorded. Plan of Treatment Reminders Order Date Submit Date Provider Last Modified By Organization Details Last Modified Time Details Appointments None record ed. Lab None record ed. Referral None record ed. Procedures None record ed. Surgeries None record ed. Imaging None record ed. Medication Orders None record ed. Patient TargetsNo targets recorded. Patient Instructions Encounter Date Encounter Id Patient Instructions Last Modified By Organization Details Last Modified Time 02/08/2025 [id number] we will obtain a nd review the disc. We will then make recommendations for or against surgery. She is also encouraged to see both her neurosurgeon and sander setter yumiko Not available 02/08/2025 14:58:09 Reason for Referral None Reported. Results Created Date Observation Date Name Description Value Unit Range Abnormal Flag Note LastModifiedBy Organization Detail LastModifiedTime 02/07/2002/04/2025 CT, head + brain , w/o contr ast No observ ation record ed. [email or web address] Not Available 2024 15:44:25 Result Notes None recorded. Problems Name Problem SNOMED Code Status Onset Date Resolution Date Notes Provider Name and Address Organization Details Recorded Time Closed fracture of left orbital floor 413835042435803 06 Active 2024 Tian Terrazas MD [address] [facility] [address], [place], [address] , [facility] 14:57:48 Problem Notes None recorded. Medical Equipment None Reported. Allergies Allergen ID Allergen Name Allergen Category Reaction Reaction Severity Criticality Documentation Date Start Date Code Code System Note Provider Name and Address Organization Details Recorded Time 38301 indometha curtis medicatio n nausea Not available Not available 02/08/2025 5781 RxNorm Savanna Coates RN null, [facility] 14:23:02 49424 meloxicam medicatio n Not available Not available Not available 02/08/2025 90058 RxNorm BLEED ING Savanna Coates RN null, [facility] 14:23:17 Medications Name Sig Start Date Stop Date Status Note LastModified by Organization Details LastModified Time Xanax 0.5 mg tablet Take 1 tablet 3 times a day by oral route. active Not Available Not Available No t Available azithromyci n 250 mg tablet PLEASE SEE ATTACHED FOR DETAILED DIRECTION S 02/08 completed Not Available Not Available Not Available hydrocodone 5 mg-acetamin ophen 325 mg tablet TAKE 1 TABLET BY MOUTH EVERY 6 HOURS NEEDED FOR PAIN active Not Available Not Available No t Available lisinopril 20 mg tablet TAKE 1 TABLET BY MOUTH TWICE A DAY active Not Available Not Available No t Available permethrin 5 % topical cream APPLY THOROUGH MASSAGE INTO SKIN-HEAD TO FEET SOLES ONCE&LEAV E ON 8-14 HOUR THEN THOROUGH WASH OFF 02/08 completed Not Available Not Available Not Available metronidazo le 500 mg tablet 500 MG ORALLY EVERY 8 HOURS 02/08 completed Not Available Not Available Not Available ciprofloxac in 250 mg tablet TAKE 1 TABLET BY MOUTH EVERY 12 HOURS 02/08 completed Not Available Not Available Not Available amlodipine 5 mg tablet TAKE 1 TABLET BY MOUTH EVERY DAY active Not Available Not Available No t Available ciprofloxac in 500 mg tablet TAKE 1 TABLET BY MOUTH EVERY 12 HOURS FOR 3 DAYS 02/08 completed Not Available Not Available Not Available sulfamethox azole 800 mg-trimetho prim 160 mg tablet TAKE 1 TABLET BY MOUTH EVERY 12 HOURS 02/08 completed Not Available Not Available Not Available aspirin 81 mg tablet,cindy yed release Take 1 tablet every day by oral route. active Not Available Not Available No t Available amoxicillin 500 mg tablet TAKE 1 TABLET BY MOUTH EVERY EIGHT HOURS DIRECTED TAKE UNTIL FINISHED. 02/08 completed Not Available Not Available Not Available meloxicam 7.5 mg tablet TAKE 1 TABLET BY MOUTH TWICE A DAY 02/08 completed Not Available Not Available Not Available amlodipine 10 mg tablet TAKE 1 TABLET BY MOUTH EVERY DAY 02/08 completed Not Available Not Available Not Available benzonatate 100 mg capsule TAKE 1 CAPSULE (100 MG) ORALLY TWICE A DAY NEEDED FOR COUGH 02/08 completed Not Available Not Available Not Available pantoprazol e 40 mg tablet,cindy yed release TAKE 1 TABLET BY MOUTH EVERY DAY 02/08 completed Not Available Not Available Not Available hydrocortis one acetate 30 mg rectal suppository INSERT 1 SUPPOSITO RY BY RECTAL ROUTE 2 TIMES EVERY DAY NEEDED active Not Available Not Available No t Available cephalexin 500 mg tablet TAKE 2 TABLETS BY MOUTH TWICE A DAY 02/08 completed Not Available Not Available Not Available gabapentin 100 mg capsule TAKE 1 CAPSULE BY MOUTH TWICE A DAY active Not Available Not Available No t Available estradiol 0.01% (0.1 mg/gram) vaginal cream INSERT 1 GRAM VAGINALLY 2 TIMES EVERY WEEK active Not Available Not Available No t Available levofloxaci n 750 mg tablet TAKE 1 TABLET BY MOUTH EVERY DAY 02/08 completed Not Available Not Available Not Available methylpredn isolone 4 mg tablets in a dose pack TAKE 6 TABLETS ON DAY 1 DIRECTED ON PACKAGE AND DECREASE BY 1 TAB EACH DAY FOR A TOTAL OF 6 DAYS 02/08 completed Not Available Not Available Not Available albuterol sulfate HFA 90 mcg/actuati on aerosol inhaler INHALE 2 PUFFS BY MOUTH 4 TIMES EVERY DAY NEEDED 02/08 completed Not Available Not Available Not Available ondansetron 4 mg disintegrat ing tablet PLACE 1 TABLET ON TONGUE AND LET DISSOLVE THREE TIMES A DAY NEEDED FOR NAUSEA 02/08 completed Not Available Not Available Not Available clotrimazol e 1 % topical cream APPLY TO AFFECTED AREA TWICE A DAY IN THE MORNING AND IN THE EVENING active Not Available Not Available No t Available doxycycline hyclate 100 mg tablet TAKE 1 TABLET BY MOUTH TWICE A DAY 02/08 completed Not Available Not Available Not Available amoxicillin 875 mg-potassiu m clavulanate 125 mg tablet TAKE 1 TABLET BY MOUTH EVERY 12 HOURS 02/08 completed Not Available Not Available Not Available chlorhexidi ne gluconate 0.12 % mouthwash PLEASE SEE ATTACHED FOR DETAILED DIRECTION S 02/08 completed Not Available Not Available Not Available Probiotic active Not Available Not Noelle ilable Not Available Anoro Ellipta 62.5 mcg-25 mcg/actuati on powder for inhalation INHALE 1 PUFF DAILY active Not Available Not Available No t Available Centrum Silver Women 8 mg iron-400 mcg-50 mcg tablet Take by oral route. active Not Available Not Available No t Available Trelegy Ellipta 200 mcg-62.5 mcg-25 mcg powder for inhalation INHALE 1 PUFF BY INHALATIO N ROUTE EVERY DAY AT THE SAME TIME EACH DAY 02/08 completed Not Available Not Available Not Available Vitals Date Recorded Body weight Body mass index (BMI) Body height Body temperature Provider Name and Address Organization Details Last Updated DateTime 02/08/2025 95983.84 g 26.3 kg/m2 167.64 cm 97.3 [degF] Savanna Coates RN [place] - [facility] [employer] 02/08/2025 14:19:29 Social History None recorded. Functional Status None recorded. Mental Status None recorded. Family History Nothing Reported Notes:BROTHER: HEARING LOSS Medical History Condition Response HAVE YOU BEEN HOSPITALIZED OR SEEN IN [facility] IN THE PAST YEAR ? Y Gynecological HistoryNo gynecological history recorded. Obstetrics History GPAL:G 0 P 0 0 0 0 Past Encounters Encounter ID Performer Location Encounter Start Date Encounter Closed Date Diagnosis/Indication Diagnosis SNOMED-CT Code Diagnosis ICD10 Code Diagnosis IMO Codes Diagnosis Note [id number] Tian Terrazas MD [facility] [address] [facility] [address] [place] [address] 02/08/2025 14:03:57 02/09/2025 10:06:31 Closed fracture of left orbital floor [id number] S02.32XA [id number] Health Concerns Section Related Observation LastModified by Organization Detai ls LastModified Time None Recorded Concern Status LastModified by Organization Details LastModified Time None Recorded Payers Encounter Date Sequence Insurance Name Policy Number Policy Holley Covered Member ID Holley Member ID Guarantor Name 02/08/2025 1 [employer] (MEDICARE REPLACEMENT /ADVANTAGE - PPO) [id number] 1 Fara Valencia [id number] Fara Valencia Notes Date Note Type Note Provider Name and Address Organization Details Recorded Time 02/08/2025 text/html this patient fell and suffered an orbital floor fracture on the left side. We do not have the films but we have a written report. The patient also has a history of hydrocephalus and had some sort of craniotomy. She is encouraged to see her neurosurgeon. She has not seen an sander setter but this visit is also encouraged. Tian Terrazas MD [address] [place] [address], [place], [address], [place] [facility] 02/08/2025 14:58:28 OBGyn Episode No OBEpisode recorded.
--- OUTSIDE RECORDS SUMMARY | 2025-03-13 01:00 | XMS_ITS | Clinical Summary ---
Author Organization [facility] [place] Address [address] [place] [address] Care Team Providers Care Ordained Minister Name Role Phone No, Physician Primary Care Provider [phone] Allergies Active Allergy Reactions Criticality Noted Date [...] on file Legal Sex Female 2:25 AM TRAFFIC SIGN SUPERVISOR Gender Identity Not on file Sexual Orientation Not on file Last Filed Vital Signs Vital Sign Reading Time Taken Comments Blood Pressure 134/96 04/24/2021 9:01 AM TRAFFIC SIGN SUPERVISOR Pulse 54 04/24/2021 8:53 AM TRAFFIC SIGN SUPERVISOR Temperature 36.3 C (97.4 F) 04/24/2021 8:53 AM TRAFFIC SIGN SUPERVISOR Respiratory Rate 16 04/24/2021 8:53 AM TRAFFIC SIGN SUPERVISOR Oxygen Saturation 99% 04/24/2021 8:53 AM TRAFFIC SIGN SUPERVISOR Inhaled Oxygen Concentration - - Weight 68 kg (150 lb) 03/10/2024 10:36 AM TRAFFIC SIGN SUPERVISOR Height 167.6 cm (5' 6) 03/10/2024 10:36 AM TRAFFIC SIGN SUPERVISOR Body Mass Index 24.21 03/10/2024 10:36 AM TRAFFIC SIGN SUPERVISOR Plan of Treatment Health Maintenance Due Date [...] Insurance [employer] MEDICARE A[employer] MEDICARE Care Teams Ordained Minister Relationship Specialty Start Date End Date No, Physician PCP - General 04/24/21
--- OUTSIDE RECORDS SUMMARY | 2025-03-13 01:01 | XMS_ITS | Data Portability ---
Author Organization [facility], Main Office Address [address] [place] [address] Assessment No assessment recorded. Plan of Treatment [...] By Organization Details Last Modified Time 02/08/2025 [id number] we will obtain a nd review the disc. We will then make recommendations for or against surgery. She is also encouraged to see both her neurosurgeon and political advisor yumiko Not available 02/08/2025 14:58:09 Reason for [...] Time Closed fracture of left orbital floor [id number] 06 Active 2024 Tian Terrazas MD [address] [facility] [address], [place], [address] [place] [address] [employer] 14:57:48 Problem Notes None recorded. Medical Equipment None Reported. Allergies Allergen ID Allergen Name Allergen Category Reaction Reaction Severity Criticality Documentation Date Start Date Code Code System Note Provider Name and Address Organization Details Recorded Time 24466 indometha curtis medicatio n nausea Not available Not available 02/08/2025 5781 RxNorm Savanna Coates RN null, [facility] 14:23:02 80797 meloxicam medicatio n Not available Not available Not available 02/08/2025 85664 RxNorm BLEED ING Savanna Coates RN null, [facility] 14:23:17 Medications Name Sig Start Date Stop [...] Address Organization Details Last Updated DateTime 02/08/2025 51879.84 g 26.3 kg/m2 167.64 cm 97.3 [degF] Savanna Coates RN [place] - [facility] [employer] 02/08/2025 14:19:29 Social History None recorded. Functional Status None recorded. Mental Status None recorded. Family History Nothing Reported Notes:BROTHER: HEARING LOSS Medical History Condition Response HAVE YOU BEEN HOSPITALIZED OR SEEN IN [facility] ER IN THE PAST YEAR ? Y Gynecological HistoryNo gynecological history recorded. Obstetrics History GPAL:G 0 P 0 0 0 0 Past Encounters Encounter ID Performer Location Encounter Start Date Encounter Closed Date Diagnosis/Indication Diagnosis SNOMED-CT Code Diagnosis ICD10 Code Diagnosis IMO Codes Diagnosis Note [id number] Tian Terrazas MD [facility] [address] [place] [address] 02/08/2025 14:03:57 02/09/2025 10:06:31 Closed fracture of left orbital floor [id number] S02.32XA [id number] Health Concerns Section Related Observation LastModified by Organization Detai ls LastModified Time None Recorded Concern Status LastModified by Organization Details LastModified Time None Recorded Advance Directives Directive None Recorded Payers Insurance Date Sequence Insurance Name Policy Number Policy Holley Covered Member ID Holley Member ID Guarantor Name 02/08/2025 1 [employer] (MEDICARE REPLACEMENT /ADVANTAGE - PPO) [id number] Fara Valencia [id number] Fara Valencia 02/08/2025 1 [place] Fara Valencia [id number] Fara Valencia Notes Date Note Type Note [...] her neurosurgeon. She has not seen an political advisor but this visit is also encouraged. Tian Terrazas MD [address] [place] [address], [place], [address], [place] [facility] [employer] 02/08/2025 14:58:28 OBGyn Episode No OBEpisode recorded.
--- OUTSIDE RECORDS SUMMARY | 2025-03-13 01:01 | XMS_ITS | Clinical Summary ---
Author Organization [facility] Address [address] [place] [address] Care Team Providers Care Vice President Medical Affairs Name Role Phone Xochitl Duarte MD Primary Care Provider [phone] Source Comments [facility],non-owned Affiliates and Associated Physician Practices is amultiple site organization consisting of ambulatory clinics and hospital sitesin [place], [place], [place] and [place]. This disclosure is being madepursuant to the Care Everywhere program and may not contain all information available regarding this patient. Last updated 17.[facility] Allergies No known active allergies Medications * Be aware that medications may not be up to date on this document. Alwaysverify current medications with the patient. HYDROcodone-meredith taminophen ([place]) 5-325 MG tabletIndicatio ns:Fall, initial encounter,Orbit al floor (blow-out) closed fracture (HCC),Fracture of lateral orbital wall, left side, initial encounter for closed fracture (HCC),Facial laceration, initial encounter Take 1 (one) tablet by mouth every 6 hours as needed for Pain 12 tablet 02/04/2025 Active saline nasal spray ([place]; Baby [place]) 0.65 % nasal spray Rebecca 1 (one) spray into each nostril as needed for Dry Nose 104 mL 02/04/2025 Active amoxicillin-cla vulanate (Augmentin) 875-125 MG tablet Take 1 (one) tablet by mouth 2 times daily with morning and evening meal for 7 days 14 tablet 02/04/2025 02/12/20 25 Encounters Date Type Department Care Team Description 02/04/2025 12:27 PM CITY DESIGNER - 02/04/2025 2:42 PM CITY DESIGNER Emergency ER at [facility] [address] [place] [address] Tobias Ramon MD Fall, initial encounter; Orbital floor (blow-out) closed fracture (HCC); Fracture of lateral orbital wall, left side, initial encounter for closed fracture (HCC); Facial laceration, initial encounter; Abrasions of multiple sites; Right hip pain; Acute pain of both shoulders Discharge Disposition: Home or Self Care 02/04/2025 Travel from Last 3 Months Social History Tobacco Use Types Packs/Day Years Used Date Smoking Tobacco: Never Assessed Comments Unknown Sex and Gender Information Value Date Recorded Sex Assigned at Not on file Legal Sex Female 7:05 AM CITY DESIGNER Gender Identity Not on file Sexual Orientation Not on file Last Filed Vital Signs Vital Sign Reading Time Taken Comments Blood Pressure 136/92 02/04/2025 2:31 PM CITY DESIGNER Pulse 80 02/04/2025 2:31 PM CITY DESIGNER Temperature 36.8 C (98.2 F) 02/04/2025 12:33 PM CITY DESIGNER Respiratory Rate 16 02/04/2025 12:31 PM CITY DESIGNER Oxygen Saturation 94% 02/04/2025 2:31 PM CITY DESIGNER Inhaled Oxygen Concentration - - Weight 74.8 kg (165 lb) 02/04/2025 12:31 PM CITY DESIGNER Height 167.6 cm (5' 6) 02/04/2025 12:31 PM CITY DESIGNER Body Mass Index 26.63 02/04/2025 12:31 PM CITY DESIGNER Plan of Treatment Health Maintenance Due Date Last Done Comments BONE DENSITY TESTING 1957 COLOGUARD (AGES 45-75) - COLON CA SCREENING 1957 COLON MONITORING 1957 COLONOSCOPY - COLON CA SCREENING 1957 CT COLONOGRAPHY - COLON CA SCREENING 1957 Colorectal Cancer Screening 1957 FIT - COLON CA SCREENING 1957 FLEX SIG - COLON CA SCREENING 1957 LIPID TESTING 1957 MAMMOGRAM 1957 HEPATITIS C SCREENING 04/22/1975 DTAP/TDAP/TD VACCINES (1 - Tdap) 1976 PNEUMOCOCCAL VACCINE 50+ (1 of 1 - PCV) 2007 Respiratory Syncytial Virus (RSV) Vaccine Pt: or over 60 yrs (1 - Risk 50-74 years 1-dose series) 2007 ZOSTER VACCINE (1 of 2) 2007 DEPRESSION SCREENING 04/05/2024 MEDICARE AWV CALENDAR YEAR 2024 COVID-19 VACCINE ( season) 2025 01/11/2025, 01/31/2024, 02/14/2023, Additional history exists INFLUENZA VACCINE Completed 01/11/2025, , 12/10/2022, Additional history exists HEPATITIS B VACCINE Aged Out No longe r eligible based on patient's age to complete this topic HIB VACCINE Aged Out No longer eligi ble based on patient's age to complete this topic HPV VACCINE Aged Out No longer eligi ble based on patient's age to complete this topic MENINGOCOCCAL (Group B) VACCINE SHARED DECISION-MAKING Aged Out No longer eligible based on patient's age to complete this topic MENINGOCOCCAL GROUPS A/C/Y/W VACCINE Aged Out No longer eligible based on patient's age to complete this topic Procedures Procedure Name Priority Date/Time Associated Diagnosis Comments XR PELVIS W RIGHT HIP 2VW STAT 02/04/2025 2:07 PM CITY DESIGNER Fall, initial encounter XR CHEST 1VW PORTABLE STAT 02/04/2025 2:05 PM CITY DESIGNER Fall, initial encounter ED LACERATION REPAIR Routine 02/04/2025 1:[address] CERVICAL SPINE WO CONTRAST STAT 02/04/2025 12:50 PM CITY DESIGNER Fall, initial encounter CT HEAD WO CONTRAST STAT 02/04/2025 1 2:50 PM CITY DESIGNER Fall, initial encounter from Last 3 Months Results * XR Pelvis W Right Hip 2Vw (02/04/2025 2:07 PM CITY DESIGNER) Anatomical Region Laterality Modality Pelvis Computed Radiogr aphy 02/04/2025 3:04 PM CITY DESIGNER Impressions 02/04/2025 3:05 PM CITY DESIGNER IMPRESSION: No displaced fracture or dislocation. > Interpreting Provider: Netta Castellanos MD on 02/04/2025 3:05 PM Narrative 02/04/2025 3:05 PM CITY DESIGNER PROCEDURE: XR PELVIS W RIGHT HIP 2VW DATE/TIME OF EXAM: 02/04/2025 2:07 PM CLINICAL INFORMATION: None relevant/not provided if blank. Indication: W19.XXXA: Fall, initial encounter Additional History: Right hip pain COMPARISON: None. TECHNIQUE/FINDINGS: Frontal view of the bony pelvis along with frontal and frog-leg lateral views of the right hip demonstrate the bones to be diffusely osteopenic. There is no displaced fracture or dislocation. Mild degenerative changes with subchondral sclerosis. The soft tissues are unremarkable. Procedure Note Netta Castellanos MD - 02/04/2025 PROCEDURE: XR PELVIS W RIGHT HIP 2VW DATE/TIME OF EXAM: 02/04/2025 2:07 PM CLINICAL INFORMATION: None relevant/not provided if blank. Indication: W19.XXXA: Fall, initial encounter Additional History: Right hip pain COMPARISON: None. TECHNIQUE/FINDINGS: Frontal view of the bony pelvis along with frontal and frog-leg lateral views of the right hip demonstrate the bones to be diffusely osteopenic. There is no displaced fracture or dislocation. Mild degenerative changes with subchondral sclerosis. The soft tissues are unremarkable. IMPRESSION: No displaced fracture or dislocation. > Interpreting Provider: Netta Castellanos MD on 02/04/2025 3:05 PM Tobias Ramon MD DIAGNOSTIC IMAGING ORDERABLES Final Result * XR CHEST 1VW PORTABLE (02/04/2025 2:05 PM CITY DESIGNER) Anatomical Region Laterality Modality Chest Computed Radiogr aphy 02/04/2025 3:03 PM CITY DESIGNER Impressions 02/04/2025 3:04 PM CITY DESIGNER IMPRESSION: Chronic appearing right upper lobe changes, as above. > Interpreting Provider: Netta Castellanos MD on 02/04/2025 3:04 PM Narrative 02/04/2025 3:04 PM CITY DESIGNER PROCEDURE: XR CHEST 1VW PORTABLE DATE/TIME OF EXAM: 02/04/2025 2:07 PM CLINICAL INFORMATION: None relevant/not provided if blank. Indication: W19.XXXA: Fall, initial encounter Additional History: COMPARISON: None. FINDINGS: Portable view of the chest demonstrates right upper lobe pleural parenchymal changes and large bullae. No gross pleural effusion or pneumothorax. The cardiomediastinal silhouettes are unremarkable. Procedure Note Netta Castellanos MD - 02/04/2025 PROCEDURE: XR CHEST 1VW PORTABLE DATE/TIME OF EXAM: 02/04/2025 2:07 PM CLINICAL INFORMATION: None relevant/not provided if blank. Indication: W19.XXXA: Fall, initial encounter Additional History: COMPARISON: None. FINDINGS: Portable view of the chest demonstrates right upper lobe pleural parenchymal changes and large bullae. No gross pleural effusion or pneumothorax. The cardiomediastinal silhouettes are unremarkable. IMPRESSION: Chronic appearing right upper lobe changes, as above. > Interpreting Provider: Netta Castellanos MD on 02/04/2025 3:04 PM us Tobias Ramon MD DIAGNOSTIC IMAGING ORDERABLES Final Result * Laceration Repair (02/04/2025 1:51 PM CITY DESIGNER) Narrative Tobias Ramon MD - 02/04/2025 1:51 PM CITY DESIGNER Tobias Ramon MD 02/04/2025 1:52 PM Laceration Repair Date/Time: 02/04/2025 1:51 PM Performed by: Tobias Ramon MD Authorized by: Tobias Ramon MD Consent: Consent obtained: Verbal Consent given by: Patient Risks, benefits, and alternatives were discussed: yes Risks discussed: Infection, need for additional repair, pain, poor cosmetic result, poor wound healing, nerve damage, retained foreign body, tendon damage and vascular damage [place] protocol: Patient identity confirmed: Verbally with patient and arm band Anesthesia: Anesthesia method: Local infiltration Local anesthetic: Lidocaine 1% w/o epi Laceration details: Location: Face Face location: L eyebrow Length (cm): 3 Pre-procedure details: Preparation: Imaging obtained to evaluate for foreign bodies and patient was prepped and draped in usual sterile fashion Exploration: Hemostasis achieved with: Direct pressure Imaging obtained comment: CT Imaging outcome: foreign body not noted Wound exploration: wound explored through full range of motion and entire depth of wound visualized Wound extent: underlying fracture Wound extent: no nerve damage noted, no tendon damage noted and no vascular damage noted Treatment: Area cleansed with: Saline Amount of cleaning: Standard Irrigation solution: Sterile saline Irrigation volume: 500cc Irrigation method: Pressure wash Layers/structures repaired: Deep subcutaneous Deep subcutaneous: Suture size: 4-0 Suture material: Vicryl Suture technique: Simple interrupted Number of sutures: 5 Skin repair: Repair method: Sutures Suture size: 5-0 Wound skin closure material used: Vicryl. Suture technique: Simple interrupted Number of sutures: 7 Approximation: Approximation: Close Repair type: Repair type: Simple Post-procedure details: Dressing: Antibiotic ointment Procedure completion: Tolerated well, no immediate complications us Tobias Ramon MD PROCEDURE/MINOR SURGICAL ORDE SLIME Final Result * CT CERVICAL SPINE WO CONTRAST (02/04/2025 12:50 PM CITY DESIGNER) Anatomical Region Laterality Modality Spine Computed Tomogra phy 02/04/2025 1:06 PM CITY DESIGNER Impressions 02/04/2025 1:07 PM CITY DESIGNER IMPRESSION: No evidence for cervical spine fracture or traumatic malalignment. > Interpreting Provider: Netta Castellanos MD on 02/04/2025 1:07 PM Narrative 02/04/2025 1:07 PM CITY DESIGNER PROCEDURE: CT CERVICAL SPINE WO CONTRAST DATE/TIME OF EXAM: 02/04/2025 12:50 PM CLINICAL INFORMATION: None relevant/not provided if blank. Indication: W19.XXXA: Fall, initial encounter Additional History: COMPARISON: None. TECHNIQUE: CT of the cervical spine was performed utilizing standard protocol. Sagittal and coronal reformatted images were rendered. CT dose reduction technique was used, including Automated Exposure Control. FINDINGS: There is normal cervical lordosis. Dhls-[id number]-[id number] multilevel degenerative changes are seen. There is no spondylolisthesis. There is no prevertebral soft tissue swelling. Partially visualized extensive emphysematous changes of the visualized right upper lobe. There is no evidence for fracture at the skull base or throughout the cervical spine. Procedure Note Netta Castellanos MD - 02/04/2025 PROCEDURE: CT CERVICAL SPINE WO CONTRAST DATE/TIME OF EXAM: 02/04/2025 12:50 PM CLINICAL INFORMATION: None relevant/not provided if blank. Indication: W19.XXXA: Fall, initial encounter Additional History: COMPARISON: None. TECHNIQUE: CT of the cervical spine was performed utilizing standard protocol. Sagittal and coronal reformatted images were rendered. CT dose reduction technique was used, including Automated ExposureControl. FINDINGS: There is normal cervical lordosis. Ekpa-ib-pmxadkam multileveldegenerative changes are seen. There is no spondylolisthesis. There is no prevertebral soft tissue swelling. Partially visualized extensive emphysematous changes of the visualized right upper lobe. There is no evidence for fracture at the skull base or throughout the cervical spine. IMPRESSION: No evidence for cervical spine fracture or traumatic malalignment. > Interpreting Provider: Netta Castellanos MD on 02/04/2025 1:07 PM Tobias Ramon MD CT ORDERABLES Final Result * CT HEAD WO CONTRAST (02/04/2025 12:50 PM CITY DESIGNER) Anatomical Region Laterality Modality Head Computed Tomogra phy 02/04/2025 12:5 9 PM CITY DESIGNER Impressions 02/04/2025 1:06 PM CITY DESIGNER IMPRESSION: No intracranial hemorrhage or other acute abnormality by CT. Chronic postsurgical changes, as detailed above. Correlation with outside imaging would be helpful if available. Mildly displaced fractures of the anteromedial left maxillary wall and the left orbital floor with complete opacification of the left maxillary antrum likely representing hemorrhage. > Interpreting Provider: Netta Castellanos MD on 02/04/2025 1:06 PM Narrative 02/04/2025 1:06 PM CITY DESIGNER PROCEDURE: CT HEAD WO CONTRAST DATE/TIME OF EXAM: 02/04/2025 12:50 PM CLINICAL INFORMATION: None relevant/not provided if blank. Indication: W19.XXXA: Fall, initial encounter Additional History: Hydrocephalus, brain cyst, shunt bulb COMPARISON: None. TECHNIQUE: Noncontrast CT brain was performed utilizing standard protocol. CT dose reduction technique was used, including Automated Exposure Control. FINDINGS: No acute intracranial hemorrhage or loss of calderon white differentiation to suggest acute infarct. A left parietal approach shunt catheter is seen with the tip located within the body of the left lateral ventricle. The ventricles are moderately prominent. There are no prior studies available for comparison. Moderate small vessel disease noted. Surgical clips are seen in the posterior right paramedian parietal lesion with an adjacent 1.8 cm oval area containing a linear internal hyperdensity. This appears to be extra-axial in nature. Evaluation of the posterior fossa is limited by streak artifact. No midline shift or mass effect. Globes intact. The calvarium is intact with postsurgical changes of prior craniotomy.. Moderate left frontal scalp swelling with possible laceration. There is complete opacification of the left maxillary antrum with a mildly displaced left orbital floor fracture there is a minimally displaced fracture of the anteromedial left maxillary wall with adjacent soft tissue swelling. The remaining paranasal sinuses and mastoid air cells are clear. Procedure Note Netta Castellanos MD - 02/04/2025 PROCEDURE: CT HEAD WO CONTRAST DATE/TIME OF EXAM: 02/04/2025 12:50 PM CLINICAL INFORMATION: None relevant/not provided if blank. Indication: W19.XXXA: Fall, initial encounter Additional History: Hydrocephalus, brain cyst, shunt bulb COMPARISON: None. TECHNIQUE: Noncontrast CT brain was performed utilizing standard protocol. CT dose reduction technique was used, including Automated ExposureControl. FINDINGS: No acute intracranial hemorrhage or loss of calderon white differentiationto suggest acute infarct. A left parietal approach shunt catheter is seenwith the tip located within the body of the left lateral ventricle. The ventricles are moderately prominent. There are no prior studiesavailable for comparison. Moderate small vessel disease noted. Surgical clips are seen in the posterior right paramedian parietal lesion with an adjacent1.8 cm oval area containing a linear internal hyperdensity. This appears bola extra-axial in nature. Evaluation of the posterior fossa is limited by streak artifact. No midline shift or mass effect. Globes intact. The calvarium is intact with postsurgical changes of prior craniotomy.. Moderate left frontal scalp swelling with possible laceration. There is complete opacification of the left maxillary antrum with amildly displaced left orbital floor fracture there is a minimally displaced fracture of the anteromedial left maxillary wall with adjacent softtissue swelling. The remaining paranasal sinuses and mastoid air cells are clear. IMPRESSION: No intracranial hemorrhage or other acute abnormality by CT. Chronic postsurgical changes, as detailed above. Correlation withoutside imaging would be helpful if available. Mildly displaced fractures of the anteromedial left maxillary wall andthe left orbital floor with complete opacification of the left maxillaryantrum likely representing hemorrhage. > Interpreting Provider: Netta Castellanos MD on 02/04/2025 1:06 PM Tobias Ramon MD CT ORDERABLES Final Result from Last 3 Months Insurance MEDICARE AETNA MEDICARE [facility] Care Teams Vice President Medical Affairs Relationship Specialty Start Date End Date Xochitl Duarte MD [address] [place] [id number] PCP - General Endocrinology 02/04/25
--- OUTSIDE RECORDS SUMMARY | 2025-03-13 01:01 | XMS_ITS | Clinical Summary ---
Author Organization [employer] [facility] Address [id number] [place] [id number] Care Team Providers Care Soda Clerk Name Role Phone Xochitl Duarte MD Primary Care Provider [phone] Allergies Active Allergy Reactions Criticality Noted Date [...] Encounters Date Type Department Care Team Description 03/06/2025 External Device Data [facility] ABSTRACTION Provider, Abstract 02/27/2025 External Device Data [facility]CTION Provider, Abstract 01/24/2025 External Device Data [facility]CTION Provider, Abstract 01/09/2025 External Device Data [facility] ABSTRACTION Provider, [...] 1-dose 75+ series) 2032 Insurance AETNA PPO [facility] AETNA PPO [facility] Care Teams Soda Clerk Relationship Specialty Start Date End Date Xochitl Duarte MD [address] [place] [phone] PCP - General Internal Medicine 08/14/20
--- OUTSIDE RECORDS SUMMARY | 2025-03-13 01:01 | XMS_ITS | Clinical Summary ---
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 Not on file Not on file Last Filed Vital Signs Vital Sign Reading Time Taken Comments Blood Pressure 150/90 04/15/2021 2:01 PM CONVERTER SUPERVISOR Pulse 58 04/15/2021 2:00 PM CONVERTER SUPERVISOR Temperature 36.7 C (98.1 F) 04/15/2021 2:00 PM CONVERTER SUPERVISOR Respiratory Rate 24 04/15/2021 2:00 PM CONVERTER SUPERVISOR Oxygen Saturation 96% 04/15/2021 2:00 PM CONVERTER SUPERVISOR Inhaled Oxygen Concentration - - Weight 74.3 kg (163 lb 12.8 oz) 04/15/2021 2:02 PM CONVERTER SUPERVISOR Height 170.2 cm (5' 7) 04/15/2021 2:02 PM CONVERTER SUPERVISOR Body Mass Index 25.65 04/15/2021 2:02 PM CONVERTER SUPERVISOR Plan of Treatment Health Maintenance Due [...] Years (1 - 1-dose 75+ series) 2032 Hepatitis A Vaccines Aged Out No long er eligible based on patient's age to complete this topic Meningococcal B Vaccine Aged Out No l onger eligible based on patient's age to complete this topic Meningococcal Vaccine Aged Out No wanda james eligible based on patient's age to complete this topic RSV Immunizations Under 20 Months Aged Out No longer eligible b ased on patient's age to complete this topic Insurance [employer] Care Teams Maintainer Operator Relationship Specialty Start Date End Date Xochitl Duarte MD [address] [place] [phone] PCP - General 02/18/21
[2025-03-13 10:14] VITALS: BP 111/81; PULSE 88; RESP 16; TEMP 36.1; O2SAT 97; BMI 25.2
--- NOTE | 2025-03-13 10:29 | WPDANESEPPF ---
Anes - Initial Pre Proc Eval Procedure: Operation Date: 03/13/25 11:30 Proposed Procedures p Screening Colonoscopy - Patrice Villasenor DO Date/Time: 03/13/25 10:29 Surgeon: Patrice Villasenor DO Pre Op Diagnosis: Neoplasm screening Patient Data Age: 69 Gender: F Height: 1.68 m Weight: 70.8 kg Last Vital Signs Temp 36.1 C L 03/13/25 10:14 Pulse 88 03/13/25 10:14 Resp 16 03/13/25 10:14 BP 111/81 03/13/25 10:14 Pulse Ox 97 03/13/25 10:14 O2 Del Method Room Air 03/13/25 10:14 Allergies Allergy/AdvReac Type Severity Reaction Status Date / Time No Known Allergies Allergy Verified 03/13/25 10:23 Home Medications ?Medication ?Instructions ?Recorded ?Confirmed ?Type alprazolam 0.5 mg tablet 1 tablet PO BID PRN Anxiety 10/20/21 02/19/25 History multivitamin with minerals-folic 1 tablet PO HS 02/17/23 03/13/25 History acid 80 mcg chewable tablet (Centrum Adult 50 Plus) aspirin 81 mg tablet,delayed 81 mg PO DAILY 03/19/23 03/13/25 History release (Adult Low Dose Aspirin) amlodipine 5 mg tablet 5 mg PO DAILY 11/29/24 03/13/25 History gabapentin 100 mg capsule 100 mg PO Q12H 11/29/24 03/13/25 History hydrocodone 5 mg-acetaminophen 325 1 tablet PO Q8H PRN pain 11/29/24 03/13/25 History mg tablet lisinopril 10 mg tablet 10 mg PO DAILY 01/02/25 03/13/25 History umeclidinium 62.5 mcg-vilanterol 1 inh inhalation DAILY #60 ea 01/02/25 03/13/25 Rx 25 mcg/actuation powdr for inhalation Patient hx anesthesia problems: none Family hx anesthesia problems: none Results Review: All pre-operative results and documents have been reviewed as part of the pre-operative evaluation. FORMERLY [facility], [facility] Past Medical History Medical History (Updated 01/27/25 @ 15:53 by Anish Engle MD) Abdominal pain Chronic neck and back pain COPD (chronic obstructive pulmonary disease) Right knee pain Other fatigue Effusion, left knee Effusion of knee joint right 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, bilateral Chronic, continuous use of opioids 30 mg morphine x 2 years Hydrocephalus as child Emphysema lung Rupture of proximal biceps tendon Mass of right upper extremity Left knee pain Right knee DJD Chronic pain Anxiety Hypertension Rheumatoid arthritis Surgical History Surgical History History of colonoscopy approx 2018 S/P ventricular shunt placement H/O left knee surgery History of surgery on wrist ORIF 07/15/22 Family History Family History Unknown Arthritis Mother Kidney disease Social History Social History Social History: Smoking packs per day: 1 Smoking cigarettes per day: 20.0 Years smoked: 38 Smoking pack-years: 38.00 Smoking status: Former smoker Tobacco type: cigarettes Smoking end date: 11/03/06 Alcohol intake: never Substance use: never Substance use type: does not use Lack of Transportation: No Lack of Food: Never True Current Housing: I Have Housing Concerned About Future Housing: No Difficulty Paying Gas/Electric Bills: No Difficulty Paying for Meds: No Currently Unemployed: No Education: Associate Degree Difficulty w/ Childcare or Family Care: No Living arrangements: with family Additional living arrangements comments: Occupation/Education: occupation 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 ;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 [employer] Gender identity (if verbalized by the patient): Female Spiritual care concerns: No Anes - Eval Final PreProcedure Day of Procedure 03/13/25 10:29 Patient weight: overweight Heart: regular rate and rhythm Lungs: clear to auscultation Airway: Mallampati scale class II Neurological: alert and oriented Last oral intake: >/= 8 hours ASA classification: IV Emergent: no Anesthetic plan: proceed Anesthesia type and monitoring: general GIVS and standard monitoring Results Review: All pre-operative results and documents have been reviewed as part of the pre-operative evaluation. Informed Consent: The patient's anesthetic plan and its attendant risks and benefits were discussed with the patient/family/POA. Questions were solicited and answers provided to the satisfaction of the patient/family/POA.
[2025-03-13] MEDS: LACTATED RINGERS 1,000 ML 150 ML IV CONT (10:37)
--- NOTE | 2025-03-13 10:49 | PM.IMHP2 ---
H&P: HPI History of Present Illness Date/Time: 03/13/25 10:49 Chief Complaint: screening for colorectal cancer Narrative: this is a 69-year-old woman who presents for colonoscopy. She recently was hospitalized with colitis which happened after being treated with antibiotics for pneumonia and sepsis. C diff was negative and she eventually removed resolved. Her last colonoscopy was about 6 years ago. She denies family history of colon cancer. Review of Systems Review of Systems: All systems reviewed & are unremarkable except as noted in HPI and below Constitutional: Constitutional: Denies chills, Denies fever(s), Denies headache(s) and Denies weight loss Eyes: Eyes: Denies change in vision ENT: Denies dizziness, Denies headache(s), Denies neck mass and Denies throat swelling Cardiovascular: Cardiovascular: Denies chest pain, Denies lightheadedness and Denies dyspnea Respiratory: Respiratory: Denies cough, Denies dyspnea and Denies wheezing Gastrointestinal: Gastrointestinal: Denies abdominal pain, Denies change in bowel habits, Denies nausea and Denies vomiting Genitourinary: Genitourinary: Denies hematuria and Denies dysuria Musculoskeletal: Musculoskeletal: Reports as per HPI Integumentary/Breasts: Skin/Breast: Reports as per HPI Neurologic: Denies dizziness and Denies headache(s) Allergic/Immunologic: Allergic/Immunologic: Denies throat swelling and Denies wheezing [facility] Past Medical History Medical History (Updated 03/13/25 @ 10:50 by Patrice Villasenor DO) Abdominal pain Chronic neck and back pain COPD (chronic obstructive pulmonary disease) Right knee pain Other fatigue Effusion, left knee Effusion of knee joint right 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, bilateral Chronic, continuous use of opioids 30 mg morphine x 2 years Hydrocephalus as child Emphysema lung Rupture of proximal biceps tendon Mass of right upper extremity Left knee pain Right knee DJD Chronic pain Anxiety Hypertension Rheumatoid arthritis Surgical History Surgical History History of colonoscopy approx 2018 S/P ventricular shunt placement H/O left knee surgery History of surgery on wrist ORIF 07/15/22 Family History Family History Unknown Arthritis Mother Kidney disease Social History Social History Social History: Smoking packs per day: 1 Smoking cigarettes per day: 20.0 Years smoked: 38 Smoking pack-years: 38.00 Smoking status: Former smoker Tobacco type: cigarettes Smoking end date: 11/03/06 Alcohol intake: never Substance use: never Substance use type: does not use Lack of Transportation: No Lack of Food: Never True Current Housing: I Have Housing Concerned About Future Housing: No Difficulty Paying Gas/Electric Bills: No Difficulty Paying for Meds: No Currently Unemployed: No Education: Associate Degree Difficulty w/ Childcare or Family Care: No Living arrangements: with family Additional living arrangements comments: Occupation/Education: occupation 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 ;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 [employer] Gender identity (if verbalized by the patient): Female Spiritual care concerns: No Meds Home Medications and Allergies Home Medications ?Medication ?Instructions ?Recorded ?Confirmed ?Type alprazolam 0.5 mg tablet 1 tablet PO BID PRN Anxiety 10/20/21 02/19/25 History multivitamin with minerals-folic 1 tablet PO HS 02/17/23 03/13/25 History acid 80 mcg chewable tablet (Centrum Adult 50 Plus) aspirin 81 mg tablet,delayed 81 mg PO DAILY 03/19/23 03/13/25 History release (Adult Low Dose Aspirin) amlodipine 5 mg tablet 5 mg PO DAILY 11/29/24 03/13/25 History gabapentin 100 mg capsule 100 mg PO Q12H 11/29/24 03/13/25 History hydrocodone 5 mg-acetaminophen 325 1 tablet PO Q8H PRN pain 11/29/24 03/13/25 History mg tablet lisinopril 10 mg tablet 10 mg PO DAILY 01/02/25 03/13/25 History umeclidinium 62.5 mcg-vilanterol 1 inh inhalation DAILY #60 ea 01/02/25 03/13/25 Rx 25 mcg/actuation powdr for inhalation Allergies Allergy/AdvReac Type Severity Reaction Status Date / Time No Known Allergies Allergy Verified 03/13/25 10:23 Vital Signs Vital Signs - 24 hr 03/13/25 10:14 Temperature 96.9 F L Pulse Rate 88 Respiratory Rate 16 Blood Pressure 111/81 Pulse Oximetry 97 Oxygen Delivery Room Air Exam Const: General: no acute distress and alert Orientation/consciousness: patient oriented x3 HENMT: Head: normocephalic and atraumatic Ears: hearing grossly normal bilaterally Face/Nose/Sinus: Normal nares present Mouth: Yes Normal oral and palatal mucosa present Eyes: Periorbital: periorbital findings normal Sclera: sclerae normal EOM: EOMs intact bilaterally Neck: Neck: normal visual inspection, no lymphadenopathy and trachea midline Chest: Chest palpation & inspection: normal inspection of the chest Resp: Effort & Inspection: normal respiratory effort Auscultation: clear to auscultation bilaterally Cardio: Jugular venous distension: no JVD Rate: regular rate Rhythm: regular rhythm Heart sounds: S1 normal heart sound present and S2 normal heart sound present Peripheral pulses: Peripheral pulses 2+ throughout GI: Inspection: normal to inspection GI Palp: Yes Soft to palpation, No Tenderness to palpation present (GI), No Guarding due to palpation present (GI) and No Rebound tenderness present Percussion: Yes normal to percussion Auscultation: normal bowel sounds : General: Yes no CVA tenderness Back/Spine/Pelvis: Back: no CVA tenderness Neuro: General: patient oriented x3, no focal motor deficits and CN's II-XI intact bilaterally Cognition (Neuro): normal cognition Speech: normal speech Motor exam (neuro): 5/5 motor strength present throughout Extrem: General: capillary refill normal and no clubbing, cyanosis or edema Assessment and Plan Assessment and plan (1) Screening for colorectal cancer: Code(s): Z12.11 - Encounter for screening for malignant neoplasm of colon; Z12.12 - Encounter for screening for malignant neoplasm of rectum Status: Acute Assessment and Plan: I have recommended colonoscopy. I have discussed the procedure, risks, benefits, and alternatives. Questions were answered. Patient is agreeable to proceed.
--- NOTE | 2025-03-13 11:04 | S_PTH ---
PATIENT: Fara Valencia LOC: [facility] #:[id number] AGE/SX: 69/F ROOM: RE03/13/[address]: Patrice Villasenor DO : 1955 BED: DIS: 03/13/2025 SPEC #: [id number] RECD: 03/13/25 12:56 STATUS: MIRELLA REVishnu #: [id number] LONG: 03/13/25 11:[address]: Patrice Villasenor DEPT: [facility] Surgical RECD BY: Sana Valencia MLT, ([facility]) Tissues: A - Colon Biopsy Procedures: Hematoxylin and Eosin Stain Gross and Microscopic Level 4
[2025-03-13 11:08] VITALS: BP 106/74; PULSE 73; RESP 31; O2SAT 94
[2025-03-13 11:18] VITALS: BP 104/71; PULSE 73; RESP 23; O2SAT 98
[2025-03-13 11:25] VITALS: BP 127/88; PULSE 71; RESP 23; O2SAT 99
== END 2025-03-13 11:41 | disposition home or self-care (01) ==
PROVIDERS: Visit Provider Surgery
PROC: 0DJD8ZZ Inspection of Lower Intestinal Tract, Via Natural or Artificial Opening Endoscopic (ICD-10-PCS; CPT 45378; principal; 2025-03-13 11:30)
DX: Z12.11 Encounter for screening for malignant neoplasm of colon (principal); J43.9 Emphysema, unspecified; F41.9 Anxiety disorder, unspecified; I10 Essential (primary) hypertension; R53.83 Other fatigue; M17.0 Bilateral primary osteoarthritis of knee; M06.9 Rheumatoid arthritis, unspecified; G89.29 Other chronic pain; M54.2 Cervicalgia; M54.9 Dorsalgia, unspecified; M25.561 Pain in right knee; M25.562 Pain in left knee; Z79.82 Long term (current) use of aspirin; Z79.891 Long term (current) use of opiate analgesic; Z98.890 Other specified postprocedural states; Z98.2 Presence of cerebrospinal fluid drainage device; Z87.891 Personal history of nicotine dependence
CPT/HCPCS: G0121; 88305; J2704; J7120